=== PATIENT | male | born 1980 | race Caucasian/White ===

== ENCOUNTER 2023-10-21 17:52 | Emergency (ER) | payer BC, SELFPAY ==
[2023-10-21 17:56] VITALS: BP 170/110; PULSE 87; RESP 18; TEMP 36.9; O2SAT 98; BMI 35.0
--- NOTE | 2023-10-21 18:17 | ED.SKABFB1 ---
HPI - Skin/Abscess/Foreign Bdy General Chief complaint: Skin/Abscess/Foreign Body Stated complaint: Facial Abscess Time Seen by Provider: 10/21/23 17:54 Source: patient Mode of arrival: walk-in Limitations: no limitations History of Present Illness HPI narrative: patient is a 42-year-old male presents to the Emergency Room with concerns of swelling to the left side of his face along the jaw line. 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 He denies any dental pain. Patient states for the past three weeks he has had tenderness swelling along the skin at the lower mandibular jawline, swelling, has tried to plug cares and daily at the area himself with minimal return. Patient presents tonight with concerns of increased swelling, he was seen previously for this in the past and started on antibiotics and topicals with full resolution of symptoms. He denies fever. Patient states he is compliant with all of his diabetic medication for which she is type II. He appears in no distress and is taking Motrin for pain. I been getting ingrown hairs in this location. As long as I can remember. Onset (ago): week(s) (3) Pain Consistency: Reports constant Relieving factors: Reports none Exacerbating factors: Reports none Context: Reports none Associated symptoms: Reports denies other symptoms; Denies fever or chills Treatments prior to arrival: Reports none Related Data Home Medications Medication Instructions Recorded Confirmed acetaminophen 325 mg capsule 650 mg PO DAILY 10/21/23 10/21/23 (Tylenol) amlodipine 10 mg tablet 10 mg PO DAILY 10/21/23 10/21/23 ascorbic acid (vitamin C) 500 mg 500 mg PO DAILY 10/21/23 10/21/23 tablet,extended release (C Complex) cholecalciferol (vitamin D3) 125 125 mcg PO DAILY 10/21/23 10/21/23 mcg (5,000 unit) tablet (Vitamin D3) citalopram 20 mg tablet 10 mg PO DAILY 10/21/23 10/21/23 enalapril maleate 2.5 mg tablet 2.5 mg PO Q24H 10/21/23 10/21/23 ibuprofen 400 mg tablet (IBU) 400 mg PO DAILY 10/21/23 10/21/23 metformin 1,000 mg tablet 1,000 mg PO BID 10/21/23 10/21/23 omeprazole 20 mg capsule,delayed 20 mg PO DAILY 10/21/23 10/21/23 release pioglitazone 45 mg tablet 45 mg PO DAILY 10/21/23 10/21/23 simvastatin 20 mg tablet 20 mg PO DAILY 10/21/23 10/21/23 sitagliptin phosphate 100 mg 100 mg PO DAILY 10/21/23 10/21/23 tablet (Januvia) vitamin B complex 1 tab PO DAILY 10/21/23 10/21/23 zinc gluconate 50 mg tablet 50 mg PO DAILY 10/21/23 10/21/23 Previous Rx's Medication Instructions Recorded cephalexin 500 mg capsule 500 mg PO QID 10 days #40 caps 10/21/23 mupirocin 2 % topical ointment 1 applic topical BID #15 grams 10/21/23 sulfamethoxazole 800 1 tab PO BID 7 days #14 tabs 10/21/23 mg-trimethoprim 160 mg tablet (Bactrim DS) Allergies Allergy/AdvReac Type Severity Reaction Status Date / Time No Known Drug Allergies Allergy Verified 10/21/23 17:56 Review of Systems ROS Constitutional Denies: fever or chills Eyes Denies: change in vision Ears, nose, mouth, and throat Denies: throat pain, neck pain or throat swelling Cardiovascular Denies: chest pain, palpitations or edema Respiratory Denies: shortness of breath, cough or wheezing Gastrointestinal Denies: abdominal pain, nausea or vomiting Genitourinary Denies: painful urination Musculoskeletal Denies: back pain, neck pain or extremity pain Integumentary/Breast Reports: skin tenderness (left lower mandibular jawline); Denies: rash or itching Psychiatric Denies: anxiety Hematologic/Lymphatic Denies: easy bruising Allergic/Immunologic Denies: hives PFSH PFSH Social History Smoking status: Current every day smoker Exam Narrative Exam Narrative: Nurses notes and vital signs reviewed and patient is not hypoxic. General: The patient appears well and in no apparent distress. Patient is resting comfortably on cart. Skin: Warm, dry, no pallor noted.suspect carbuncle formation left lower mandibular jawline at the ankle, no active drainage, minimal overlying erythema no streaking. No involvement to the lower lid. Patient has multiple punctate areas concerning for an original folliculitis.area is firm, no significant fluctuance.approximately 4 cm x 3 cm Head: Normocephalic, atraumatic, swelling left lower mandibular jawline Neck: Supple, trachea mid-line, tenderness left anterior cervical chain Eye: Pupils are equal, round and reactive to light, EOMI Ears, Nose, Mouth, and Throat: TM are clear, normal light reflex, oral mucosa is moist, no posterior oropharynx erythema or hypertrophy, uvula is mid-line, no mastoid tenderness, no auricle tenderness, no induration in the floor the mouth, no tenderness to the lower or upper teeth. Cardiovascular: Regular Rate and Rhythm Respiratory: Patient is in no distress, no accessory muscle use, lungs are clear to auscultation, no wheezing, rales or rhonchi. Chest Wall: no tenderness Neurological: A&O x4 Psychiatric: Cooperative Constitutional Vital Signs, click to edit/add: Last Vital Signs Temp 98.4 F 10/21/23 17:56 Pulse 87 10/21/23 17:56 Resp 18 10/21/23 17:56 BP 170/110 H 10/21/23 17:56 Pulse Ox 98 10/21/23 17:56 O2 Del Method Room Air 10/21/23 17:56 Course Vital Signs Vital signs: Vital Signs Temperature 98.4 F 10/21/23 17:56 Pulse Rate 87 10/21/23 17:56 Respiratory Rate 18 10/21/23 17:56 Blood Pressure 170/110 H 10/21/23 17:56 Pulse Oximetry 98 10/21/23 17:56 Oxygen Delivery Method Room Air 10/21/23 17:56 Temperature 98.4 F 10/21/23 17:56 Pulse Rate 87 10/21/23 17:56 Respiratory Rate 18 10/21/23 17:56 Blood Pressure 170/110 H 10/21/23 17:56 Pulse Oximetry 98 10/21/23 17:56 Oxygen Delivery Method Room Air 10/21/23 17:56 MDM - Skin/Abscess/Foreign Bdy MDM Narrative Medical decision making narrative: bedside ultrasound placed, patient has multiple small fluid collections concerning for carbuncle formation on the left jawline, no single area of constellation for formation of abscess. Physical exam without evidence of dental involvement. Patient details long history of recurrent ingrown hairs in this location and carbuncle formation his clinically suspected. We discussed surgical and nonsurgical treatment options including incision and drainage at the bedside which require multiple incisions with likely secondary scarring. Given small size in the loculations recommend warm compress, oral and topical antibiotics. Follow-up to general surgery for potential incision and drainage if symptoms worsen. He may also return to the Emergency Room. Patient agreeable to try medication given his symptom...patient and significant other bedside also report doing oral medication the past with resolution of symptoms. Patient given 1st dose of Keflex and Bactrim here. Topical muprocin The patient is to followup with primary care physician/ general surgeon in next 2-3 days or to return to the emergency department should any of the signs or symptoms worsen or new symptoms develop. Patient had questions answered. The patient agrees with the following Diagnosis and Treatment plan and the patient will be discharged home. Differential Diagnosis Differential diagnosis: Likely abscess of skin or subcutaneous tissue; Unlikely herpes zoster Discharge Plan Discharge Chief Complaint: Skin/Abscess/Foreign Body Clinical Impression: Carbuncle and furuncle of face Patient Disposition: Home, Self-Care Time of Disposition Decision: 18:18 Condition: Good Prescriptions / Home Meds: New sulfamethoxazole-trimethoprim [Bactrim DS] 800-160 mg tablet 1 tab PO BID 7 Days Qty: 14 0RF cephalexin 500 mg capsule 500 mg PO QID 10 Days Qty: 40 0RF mupirocin 2 % ointment 1 applic topical BID Qty: 15 0RF No Action amlodipine 10 mg tablet 10 mg PO DAILY citalopram 20 mg tablet 10 mg PO DAILY enalapril maleate 2.5 mg tablet 2.5 mg PO Q24H metformin 1,000 mg tablet 1,000 mg PO BID pioglitazone 45 mg tablet 45 mg PO DAILY omeprazole 20 mg capsule,delayed release(DR/EC) 20 mg PO DAILY simvastatin 20 mg tablet 20 mg PO DAILY Januvia 100 mg tablet 100 mg PO DAILY ascorbic acid (vitamin C) [C Complex] 500 mg tablet extended release 500 mg PO DAILY cholecalciferol (vitamin D3) [Vitamin D3] 125 mcg (5,000 unit) tablet 125 mcg PO DAILY zinc gluconate 50 mg tablet 50 mg PO DAILY vitamin B complex Tablet 1 tab PO DAILY Patient Comments: 1000 mcg daily acetaminophen [Tylenol] 325 mg capsule 650 mg PO DAILY ibuprofen [IBU] 400 mg tablet 400 mg PO DAILY Instructions: Furunculosis and Carbunculosis (ED) Additional Instructions: Warm compress. Can try hibiclens soap wash gentle on skin ( avoid eyes) after symptoms resolve. Follow up to General surgeon if not improving for evaluation Stand Alone Forms: Portal Instructions Referrals: Dedrick Orourke MD [Physician] - As soon as possible Physician,Non-Staff, MD [Primary Care Provider] - 1 week
[2023-10-21] MEDS: SULFAMETHOXAZOLE/TRIMETHOPRIM 800-160 MG TABLET 1 TAB PO (18:37)
[2023-10-21] MEDS: CEPHALEXIN 500 MG CAPSULE PO (18:37)
== END 2023-10-21 18:55 | disposition home or self-care (01) ==
PROVIDERS: Emergency Provider Emergency Medicine
DX: L02.03 Carbuncle of face (principal); L02.02 Furuncle of face; E11.9 Type 2 diabetes mellitus without complications; Z79.899 Other long term (current) drug therapy; Z79.84 Long term (current) use of oral hypoglycemic drugs; F17.210 Nicotine dependence, cigarettes, uncomplicated
CPT/HCPCS: 99284

== ENCOUNTER 2024-08-24 13:21 | Emergency (ER) | payer BC, SELFPAY ==
[2024-08-24 14:12] VITALS: BP 142/92; PULSE 96; TEMP 36.8; O2SAT 96; BMI 34.3
[2024-08-24 15:01] LABS: Influenza Virus A Antigen Negative; Influenza Virus B Antigen Negative; Internal Control Within Normal Limits; SARS-CoV-2 Ag NEGATIVE (NEGATIVE)
--- NOTE | 2024-08-24 15:12 | ED.URI1 ---
HPI - URI/Sore Throat General Chief Complaint: Upper Respiratory Infection Stated Complaint: COUGH, SORE THROAT, BILATERAL JAW PAIN Time Seen by Provider: 08/24/24 15:07 Source: patient History of Present Illness HPI Narrative: Patient is a 43-year-old male who presents to the emergency department for 2 to 3-week history of illness. 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 He is on diabetic medication. He denies fevers, vomiting or diarrhea. He states he started with a nonproductive cough which has now progressed to a more significant sore throat, nasal congestion and jaw pain. He reports bilateral ear pain as well. No sputum production or hemoptysis. No medications taken prior to arrival. Related Data Home Medications ?Medication ?Instructions ?Recorded ?Confirmed acetaminophen 325 mg capsule 650 mg PO DAILY 10/21/23 10/21/23 (Tylenol) amlodipine 10 mg tablet 10 mg PO DAILY 10/21/23 10/21/23 ascorbic acid (vitamin C) 500 mg 500 mg PO DAILY 10/21/23 10/21/23 tablet,extended release (C Complex) cholecalciferol (vitamin D3) 125 125 mcg PO DAILY 10/21/23 10/21/23 mcg (5,000 unit) tablet (Vitamin D3) citalopram 20 mg tablet 10 mg PO DAILY 10/21/23 10/21/23 enalapril maleate 2.5 mg tablet 2.5 mg PO Q24H 10/21/23 10/21/23 ibuprofen 400 mg tablet (IBU) 400 mg PO DAILY 10/21/23 10/21/23 metformin 1,000 mg tablet 1,000 mg PO BID 10/21/23 10/21/23 omeprazole 20 mg capsule,delayed 20 mg PO DAILY 10/21/23 10/21/23 release pioglitazone 45 mg tablet 45 mg PO DAILY 10/21/23 10/21/23 simvastatin 20 mg tablet 20 mg PO DAILY 10/21/23 10/21/23 sitagliptin phosphate 100 mg 100 mg PO DAILY 10/21/23 10/21/23 tablet (Januvia) vitamin B complex 1 tab PO DAILY 10/21/23 10/21/23 zinc gluconate 50 mg tablet 50 mg PO DAILY 10/21/23 10/21/23 Previous Rx's ?Medication ?Instructions ?Recorded cephalexin 500 mg capsule 500 mg PO QID 10 days #40 caps 10/21/23 mupirocin 2 % topical ointment 1 applic topical BID #15 grams 10/21/23 sulfamethoxazole 800 1 tab PO BID 7 days #14 tabs 10/21/23 mg-trimethoprim 160 mg tablet (Bactrim DS) uvoxxdzolbkeyhd-jihlpbierwsoeic-KA 10 ml PO Q6H PRN cold symptoms 08/24/24 2 mg-30 mg-10 mg/5 mL oral syrup #200 mL (Bromfed DM) cefdinir 300 mg capsule 300 mg PO BID 10 days #20 caps 08/24/24 Allergies Allergy/AdvReac Type Severity Reaction Status Date / Time No Known Drug Allergies Allergy Verified 08/24/24 14:12 Review of Systems ROS Constitutional Denies: fever or chills Ears, nose, mouth, and throat Reports: throat pain, ear pain and nasal congestion Cardiovascular Denies: chest pain Respiratory Reports: cough; Denies: shortness of breath Gastrointestinal Denies: nausea, vomiting or diarrhea Musculoskeletal Denies: back pain Integumentary/Breast Denies: rash Hematologic/Lymphatic Denies: easy bruising or easy bleeding PFSH [facility] Social History Smoking status: Current every day smoker Little interest or pleasure in doing things: not at all Feeling down, depressed, or hopeless: not at all Exam Narrative Exam Narrative: Gen.: Awake, alert, in no distress Head: Normocephalic, atraumatic ENT: Moist mucous membranes, bilateral TMs clear, no pharyngeal erythema with uvula midline. No tonsillar edema or exudate. Clear speech. No trismus or drooling. No hoarse or muffled voice. No redness or swelling under the tongue. Respiratory: No respiratory distress, lungs clear bilaterally Cardio: Regular rate and rhythm Extremities: Moves extremities equally Psych: Normal mood and affect Neuro: No focal neuro deficit Skin: Warm, dry, intact Constitutional Vital Signs, click to edit/add: Last Vital Signs Temp 98.2 F 08/24/24 14:12 Pulse 96 H 08/24/24 14:12 Resp 20 08/24/24 14:12 BP 142/92 H 08/24/24 14:12 Pulse Ox 96 08/24/24 14:12 Course Vital Signs Vital signs: Vital Signs Temperature 98.2 F 08/24/24 14:12 Pulse Rate 96 H 08/24/24 14:12 Respiratory Rate 20 08/24/24 14:12 Blood Pressure 142/92 H 08/24/24 14:12 Pulse Oximetry 96 08/24/24 14:12 Temperature 98.2 F 08/24/24 14:12 Pulse Rate 96 H 08/24/24 14:12 Respiratory Rate 20 08/24/24 14:12 Blood Pressure 142/92 H 08/24/24 14:12 Pulse Oximetry 96 08/24/24 14:12 MDM - URI/Sore Throat MDM Narrative Medical decision making narrative: Patient with stable vital signs, no wheezing. He appears well-hydrated and nontoxic will be treated based on his duration of symptoms with cefdinir, Bromfed-DM. Decadron given in the ER. We will defer additional steroids due to history of diabetes. Follow-up with primary care and return to the ER if symptoms change or worsen SUPERVISED APC VISIT, PHYSICIAN ATTESTATION: Based on the medical record the care appears appropriate. ? Medical Records Attestation: I reviewed the patient's medical records. Lab Data Labs: Lab Results 08/24/24 Range/Units 14:15 Influenza Type A Ag Negative Influenza Type B Ag Negative SARS-CoV-2 Ag (CV2AG) Negative (NEGATIVE) Discharge Plan Discharge Chief Complaint: Upper Respiratory Infection Clinical Impression: Upper respiratory infection Patient Disposition: Home, Self-Care Time of Disposition Decision: 15:13 Condition: Good Prescriptions / Home Meds: New aliwpfrmkcsoxmm-fqcnxwnqi-KC [Bromfed DM] 2-30-10 mg/5 mL syrup 10 ml PO Q6H PRN (Reason: cold symptoms) Qty: 200 0RF cefdinir 300 mg capsule 300 mg PO BID 10 Days Qty: 20 0RF No Action amlodipine 10 mg tablet 10 mg PO DAILY citalopram 20 mg tablet 10 mg PO DAILY enalapril maleate 2.5 mg tablet 2.5 mg PO Q24H metformin 1,000 mg tablet 1,000 mg PO BID pioglitazone 45 mg tablet 45 mg PO DAILY omeprazole 20 mg capsule,delayed release(DR/EC) 20 mg PO DAILY simvastatin 20 mg tablet 20 mg PO DAILY Januvia 100 mg tablet 100 mg PO DAILY ascorbic acid (vitamin C) [C Complex] 500 mg tablet extended release 500 mg PO DAILY cholecalciferol (vitamin D3) [Vitamin D3] 125 mcg (5,000 unit) tablet 125 mcg PO DAILY zinc gluconate 50 mg tablet 50 mg PO DAILY vitamin B complex Tablet 1 tab PO DAILY Patient Comments: 1000 mcg daily acetaminophen [Tylenol] 325 mg capsule 650 mg PO DAILY ibuprofen [IBU] 400 mg tablet 400 mg PO DAILY sulfamethoxazole-trimethoprim [Bactrim DS] 800-160 mg tablet 1 tab PO BID 7 Days Qty: 14 0RF cephalexin 500 mg capsule 500 mg PO QID 10 Days Qty: 40 0RF mupirocin 2 % ointment 1 applic topical BID Qty: 15 0RF Print Language: Italian Instructions: Upper Respiratory Infection (ED) Referrals: Angelina Urbano J2EE APPLICATION DEVELOPER [Primary Care Provider] - 1 week Discharge Date/Time: 08/24/24 15:20
[2024-08-24] MEDS: DEXAMETHASONE SOD PHOS 10 MG/ML VIAL PO (15:18)
== END 2024-08-24 15:20 | disposition home or self-care (01) ==
PROVIDERS: Emergency Provider Emergency Medicine; PCP Nurse Practitioner Family
DX: J06.9 Acute upper respiratory infection, unspecified (principal); E11.9 Type 2 diabetes mellitus without complications; Z79.84 Long term (current) use of oral hypoglycemic drugs; F17.200 Nicotine dependence, unspecified, uncomplicated
CPT/HCPCS: 87502; 87804; 87811; 99284; J1100

== ENCOUNTER 2025-06-30 09:49 | Outpatient (OUT) | payer BC, SELFPAY ==
--- OUTSIDE RECORDS SUMMARY | 2025-06-30 09:54 | XMS_ITS | Encounter Summary ---
Author Organization [facility] Address [address], [address] [place] [address] Care Team Providers Care Electrode Cleaner Name Role Phone Monica Durán MEAT PRESS OPERATOR - CONVERTING TECHNICIAN Primary Care Provide r Reason for Visit * Reason Comments Medication Refill Encounter Details Date Type Department Care Team (Late st Contact Info) Description 05/17/2021 Refill [facility] Part of [address] [place] [id number] Monica Durán, MEAT PRESS OPERATOR - CONVERTING TECHNICIAN [address] [place] [address] [address] [place] [address] Medication Refill Social History Tobacco Use Types Packs/Day Years Used Date Smoking Tobacco: Every Day Cigarettes 2 28 Smokeless Tobacco: Never Overall Financial Resource Strain (CARDIA) Answe r Date Recorded How hard is it for you to pa y for the very basics like food, housing, medical care, and heating? Not hard at all 07/21/2020 PHQ-2 Answer Date Recorded PHQ-9 Total Score 0 02/04/2021 Hunger Vital Sign Answer Date Recorded Within the past 12 months, y ou worried that your food would run out before you got the money to buy more. Never true 07/21/20 20 Within the past 12 months, t he food you bought just didn't last and you didn't have money to get more. Never true 07/21/2020 PRAPARE - Transportation Answer Date Re corded In the past 12 months, has l ack of transportation kept you from medical appointments or from getting medications? No 12/2019 In the past 12 months, has l ack of transportation kept you from meetings, work, or from getting things needed for daily living? No 07/21/2020 Sex and Gender Information Value Date Recorded Sex Assigned at Male 09/01/2022 11:11 PM EST Legal Sex Male 4:19 PM EDT Gender Identity Male 09/01/2022 11:11 PM EST Sexual Orientation Straight 09/01/2022 11 :11 PM EST documented as of this encounter Plan of Treatment Not on file documented as of this encounter Visit Diagnoses Not on filedocumented in this encounter Care Teams Electrode Cleaner Relationship Specialty Start Date End Date Monica Durán, MEAT PRESS OPERATOR - CONVERTING TECHNICIAN [address] [place] [address] [id number] PCP - General Family Nurse Practitioner 09/26/22 documented as of this encounter
--- OUTSIDE RECORDS SUMMARY | 2025-06-30 09:54 | XMS_ITS | Patient Health Record ---
Author Organization [facility] Address [address] [place] [address] Care Team Providers Care Crop Insurance Claims Adjuster Name Role Phone Monica Durán CNP Primary Care Provider Unavail able Franco Wilson Unavailable [phone] Reason For Referral No Information Problems Problem Type SNOMED Code ICD Code Onset Dates Problem Status W/U Status Risk Notes Problem [id number] Trigger finger, left ring finger (M65.342) Active confirmed Plan Of Treatment No Information Insurance Providers Payer Name Payer Address Payer Phone Subscriber Number Group Number Insured Name Patient Relationship to Insured Coverage Start Date Coverage End Date Mayelin ALLAN [address] [place] [phone] [id number] SULTANA JASSO Self - patient is the insured
--- OUTSIDE RECORDS SUMMARY | 2025-06-30 09:54 | XMS_ITS | Clinical Summary ---
Author Organization [facility] Address [address] [facility], [address] [place] [address] Care Team Providers Care Lion Tamer Name Role Phone DuránMonica gregory Sita ELECTRIC SEALING MACHINE OPERATOR - ENERGY SALES CONSULTANT Primary Care Provide r Allergies No known active allergies Medications blood glucose monitor kit and suppliesIndicat ions:Type 2 diabetes mellitus without complication, without long-term current use of insulin (HCC) Dispense sufficient amount for indicated testing frequency plus additional to accommodate PRN testing needs. Dispense all needed supplies to include: monitor, strips, lancing device, lancets, control solutions, alcohol swabs. 1 kit 2 Active amLODIPine (NORVASC) 10 MG tablet Take 1 tablet by mouth daily 90 tablet 1 4 Active enalapril (VASOTEC) 2.5 MG tablet Take 1 tablet by mouth daily 90 tablet 4 Active metFORMIN (GLUCOPHAGE) 1000 MG tablet Take 1 tablet by mouth 2 times daily (with meals) 180 tablet 4 Active omeprazole (PRILOSEC) 20 MG delayed release capsule TAKE 1 CAPSULE BY MOUTH ONE TIME A DAY BEFORE BREAKFAST 90 capsule 4 Active sildenafil (VIAGRA) 100 MG tablet Take 1 tablet by mouth as needed for Erectile Dysfunction 1 hour prior to sexual activity. Do not exceed more than 1 dose in 24 hours. 30 tablet 4 Active simvastatin (ZOCOR) 20 MG tablet Take 1 tablet by mouth daily 90 tablet 1 4 Active vitamin C (ASCORBIC ACID) 500 MG tablet Take 1 tablet by mouth daily 90 tablet 1 4 Active zinc gluconate 50 MG tablet Take 1 tablet by mouth daily 90 tablet 1 4 Active vitamin D (CHOLECALCIFERO L) 50 MCG (1999) TABS tablet Take 1 tablet by mouth daily 90 tablet 1 4 Active citalopram (CELEXA) 20 MG tablet TAKE ONE-HALF (1/2) TABLET BY MOUTH DAILY 15 tablet 4 Active citalopram (CELEXA) 20 MG tablet Take one-half (1/2) tablet by mouth daily 45 tablet 3 4 Active SITagliptin (JANUVIA) 100 MG tablet Take 1 tablet by mouth daily 90 tablet 1 4 Active pioglitazone (ACTOS) 45 MG tablet Take 1 tablet by mouth daily 90 tablet 4 Active Active Problems Problem Noted Date Diagnosed Date Non-cardiac chest pain 01/28/2021 Acute left-sided thoracic back pain 01/28/2021 Type 2 diabetes mellitus wit hout complication, without long-term current use of insulin 08/17/2020 Essential hypertension 08/17/2020 Anxiety 08/17/2020 Depression 08/17/2020 Other hyperlipidemia 08/17/2020 Tobacco use 08/17/2020 Immunizations Immunization Administration Dates Next Due Pneumococcal, PPSV23, PNEUMO VAX 23, (age 2y+), SC/IM, 0.5mL 11/07/2021 Family History Medical History Relation Name Comments Arthritis Father Cancer Father Diabetes Father Heart Disease Father Stroke Father Diabetes Mother High Blood Pressure Mother Relation Name Status Comments Father Mother Social History Tobacco Use Types Packs/Day Years Used Date Smoking Tobacco: Every Day Cigarettes 2 28 Smokeless Tobacco: Never Tobacco Cessation:Ready to Q uit: Not Asked; Counseling Given: Not Answered Alcohol Use Standard Drinks/Week Comments Yes 0 (1 standard drink = 0.6 oz pur e alcohol) occ AUDIT-C Answer Date Recorded Q1: How often do you have a drink containing alcohol? Monthly or less 06/22/2023 Q2: How many drinks containi ng alcohol do you have on a typical day when you are drinking? Patient does not drink Q3: How often do you have si x or more drinks on one occasion? Never 06/22/2023 Overall Financial Resource Strain (CARDIA) Answe r Date Recorded How hard is it for you to pa y for the very basics like food, housing, medical care, and heating? Not hard at all 04/18/2023 PHQ-2 Answer Date Recorded PHQ-9 Total Score 0 06/22/2023 Hunger Vital Sign Answer Date Recorded Within the past 12 months, y ou worried that your food would run out before you got the money to buy more. Never true 04/18/20 23 Within the past 12 months, t he food you bought just didn't last and you didn't have money to get more. Never true 04/18/2023 PRAPARE - Transportation Answer Date Re corded Lack of Transportation (Medical) Not on file 04/18/2023 In the past 12 months, has l ack of transportation kept you from meetings, work, or from getting things needed for daily living? No 04/18/2023 Housing Stability Vital Sign Answer Adithya e Recorded Unable to Pay for Housing in the Last Year Not o n file 04/18/2023 Number of Places Lived in the Last Year Not on f ile 04/18/2023 In the last 12 months, was t here a time when you did not have a steady place to sleep or slept in a prison (including now)? No 04/18/2023 Food Insecurity Answer Date Recorded Within the past 12 months, y ou worried that your food would run out before you got the money to buy more. 1 04/18/2023 Within the past 12 months, t he food you bought just didn't last and you didn't have money to get more. 1 04/18/2023 Interpersonal Safety Domain Source: IP Abuse Scr eening Answer Date Recorded Read-Only, Retired: Physical Abuse Denies 06/22/2023 Read-Only, Retired: Verbal Abuse Denies 06/22/2023 Read-Only, Retired: Emotional abuse Denies 06/22/2023 Read-Only, Retired: Financial Abuse Denies 06/22/2023 Read-Only, Retired: Sexual abuse Denies 06/22/2023 Sex and Gender Information Value Date Recorded Sex Assigned at Male 09/01/2022 11:11 PM EST Legal Sex Male 4:19 PM EDT Gender Identity Male 09/01/2022 11:11 PM EST Sexual Orientation Straight 09/01/2022 11 :11 PM EST Last Filed Vital Signs Vital Sign Reading Time Taken Comments Blood Pressure 136/79 06/22/2023 7:00 AM EDT Pulse 80 06/22/2023 7:00 AM EDT Temperature 36.7 C (98 F) 06/22/2023 5:50 AM EDT Respiratory Rate 14 06/22/2023 7:00 AM EDT Oxygen Saturation 95% 06/22/2023 7:00 AM EDT Inhaled Oxygen Concentration - - Weight 113.4 kg (250 lb) 06/22/2023 5:50 AM EDT Height 185.4 cm (6' 1 ) 06/22/2023 5:50 AM EDT Body Mass Index 32.98 06/22/2023 5:50 AM EDT Plan of Treatment Health Maintenance Due Date Last Done Comments Depression Monitoring 1991 Diabetic retinal exam 1997 DTaP/Tdap/Td vaccine (1 - Tdap) 1998 Hepatitis B vaccine (1 of 3 - 19+ 3-dose series) 1998 Diabetic Alb to Cr ratio (uACR) test 11/07/2022 11/07/2021 Pneumococcal 0-49 years Vaccine (2 of 2 - PCV) 11/07/2022 11/07/2021 A1C test (Diabetic or Prediabetic) 09/01/2023 09/01/2022, 11/07/2021, 05/09/2021, Additional history exists Lipids 09/01/2023 09/01/2022, 0209/2021, 01/28/2021, Additional history exists Diabetic foot exam 09/02/2023 09/02/2022, 0 11/07/2021, 08/17/2020 GFR test (Diabetes, CKD 3-4, OR last GFR 15-59) 06/22/2024 06/22/2023, 09/01/2022, 11/07/2021, Additional history exists Colonoscopy 2024 Colorectal Cancer Screen 2024 FIT/FOBT: Average risk 2024 Fecal-DNA (Cologuard): Average risk 2024 Sigmoidoscopy/CT colonography 2024 Flu vaccine (#1) 04/17/2025 COVID-19 Vaccine ( season) 2025 Diabetes screen Discontinued 09/01/2022, 10/19, 05/09/2021, Additional history exists HIV screen Discontinued HPV vaccine (No Doses Required) Completed Hepatitis A vaccine Aged Out No longe r eligible based on patient's age to complete this topic Hepatitis C screen Discontinued Hib vaccine Aged Out No longer eligi ble based on patient's age to complete this topic Meningococcal (ACWY) vaccine Aged Out No longer eligible based on patient's age to complete this topic Meningococcal B vaccine Aged Out No l onger eligible based on patient's age to complete this topic Polio vaccine Aged Out No longer elig ible based on patient's age to complete this topic Varicella vaccine Discontinued Procedures Procedure Name Priority Date/Time Associated Diagnosis Comments BASIC METABOLIC PANEL STAT 06/22/2023 5:54 AM EDT HEMOGLOBIN A1C Routine 09/01/2022 11:10 AM EST Type 2 diabetes mellitus without complication, without long-term current use of insulin (HCC) LIPID PANEL Routine 09/01/2022 11:09 AM EST Other hyperlipidemia MICROALBUMIN, UR Routine 11/07/2021 5:13 PM EST Type 2 diabetes mellitus without complication, without long-term current use of insulin (HCC) from Last 3 Months or Most Recently Relevant to Health Maintenance Results * (ABNORMAL) BMP (06/22/2023 5:54 AM EDT) Sodium 141 135 - 144 mmol/L 06/22/2023 5:54 AM EDT [facility] Potassium 4.4 3.7 - 5.3 mmol/L 06/22/2023 5:54 AM EDT [facility] Chloride 106 98 - 107 mmol/L 06/22/2023 5:54 AM EDT [facility] CO2 24 20 - 31 mmol/L 06/22/2023 5:54 AM EDT [facility] Anion Gap 11 9 - 17 mmol/L 06/22/2023 5:54 AM EDT [facility] Glucose 146(H) 70 - 99 mg/dL 06/22/2023 5:54 AM EDT [facility] BUN 13 6 - 20 mg/dL 06/22/2023 5:54 AM EDT [facility] Creatinine 0.9 0.7 - 1.2 mg/dL 06/22/2023 5:54 AM EDT [facility] Est, Glom Filt Rate >60 >60 mL/min/1.7 3m2 06/22/2023 5:54 AM EDT [facility] Comment: These results are not intended for use in patients <18 years of age. eGFR results are calculated without a race factor using the 2020 CKD-EPI equation. Careful clinical correlation is recommended, particularly when comparing to results calculated using previous equations. The CKD-EPI equation is less accurate in patients with extremes of muscle mass, extra-renal metabolism of creatine, excessive creatine ingestion, or following therapy that affects renal tubular secretion. BUN/Creatinine Ratio 14 9 - 20 06/22/2023 5:54 AM EDT [facility] Calcium 9.9 8.6 - 10.4 mg/dL 06/22/2023 5:54 AM EDT [facility] Blood BLOOD SPECIMEN / Unknown 06/22/2023 5:54 AM EDT 06/22/2023 5:56 AM EDT us Rommel Williamson MD CHEMISTRY ORDERABLES Final Resul t [facility] [address] [phone] * (ABNORMAL) Hemoglobin A1C (09/01/2022 11:10 AM EST) Hemoglobin A1C 6.7(H) 4.0 - 6.0 % 09/01/2022 11:10 AM EST [facility] Estimated Avg Glucose 146 mg/dL 09/01/2022 11:10 AM EST [facility] Comment: The ADA and AACC recommend providing the estimated average glucose result to permit better patient understanding of their HBA1c result. BLOOD SPECIMEN / Unknown 09/01/2022 11:10 AM EST 09/01/2022 11:11 AM EST Monica Durán ELECTRIC SEALING MACHINE OPERATOR - ENERGY SALES CONSULTANT CHEMISTRY ORDERABLES Final Result [facility] [address] [place] [address], [facility] [phone] [facility] [address] [place] [address], [facility] [phone] * (ABNORMAL) Lipid Panel (09/01/2022 11:09 AM EST) Cholesterol 185 <200 mg/dL 09/01/2022 11:09 AM EST [facility] Comment: Cholesterol Guidelines: <200 Desirable 200-240 Borderline >240 Undesirable HDL 37(L) >40 mg/dL 09/01/2022 11:09 AM EST [facility] Comment: HDL Guidelines: <40 Undesirable 40-59 Borderline >59 Desirable LDL Cholesterol 119 0 - 130 mg/dL 09/01/2022 11:09 AM EST [facility] Comment: LDL Guidelines: <100 Desirable 100-129 Near to/above Desirable 130-159 Borderline >159 Undesirable Direct (measured) LDL and calculated LDL are not interchangeable tests. Chol/HDL Ratio 5.0(H) <5 09/01/2022 11:09 AM EST [facility] Comment: Triglycerides 144 <150 mg/dL 09/01/2022 11:09 AM EST [facility] Comment: Triglyceride Guidelines: <150 Desirable 150-199 Borderline 200-499 High >499 Very high Based on AHA Guidelines for fasting triglyceride, June 2012. BLOOD SPECIMEN / Unknown 09/01/2022 11:09 AM EST 09/01/2022 11:10 AM EST Monica Durán ELECTRIC SEALING MACHINE OPERATOR - ENERGY SALES CONSULTANT CHEMISTRY ORDERABLES Final Result [facility] [address] [place] [address], [facility] [phone] [facility] [address] [place] [id number] [phone] * (ABNORMAL) Microalbumin, Ur (11/07/2021 5:13 PM EST) Albumin Urine 399(H) <21 mg/L 11/07/2021 5:13 PM EST [facility] Creatinine, Ur 114.8 39.0 - 259.0 mg/dL 11/07/2021 5:13 PM EST [facility] Microalb/Weight Engineer. Ratio 348(H) <17 mcg/mg creat 11/07/2021 5:13 PM EST [facility] Urine 11/07/2021 5:13 PM EST 11/07/2021 5:14 PM EST Monica Durán ELECTRIC SEALING MACHINE OPERATOR - ENERGY SALES CONSULTANT URINE ORDERABLES Gena l Result [facility] [address] [place] [address], [facility] [phone] [place] [id number] [phone] from Last 3 Months or Most Recently Relevant to Health Maintenance Care Teams Lion Tamer Relationship Specialty Start Date End Date Monica Durán APRN - JADYN [address] [place] [address] PCP - General Family Nurse Practitioner 09/26/22
--- OUTSIDE RECORDS SUMMARY | 2025-06-30 09:54 | XMS_ITS | Encounter Summary ---
Author Organization [facility] Address [address], [address] [place] [address] Care Team Providers Care Employee Training Specialist Name Role Phone Monica Durán GAMING DEPARTMENT HEAD - IMAGE PROCESSING ENGINEER Primary Care Provide r Reason for Visit * Reason Comments Medication Refill Encounter Details Date Type Department Care Team (Late st Contact Info) Description 04/08/2021 Refill [facility] MEDIC[facility] Part of [address] [place] [phone] Monica Durán, GAMING DEPARTMENT HEAD - IMAGE PROCESSING ENGINEER [address] [place] [address] [address] [place] [address] Medication Refill Social History Tobacco [...] on filedocumented in this encounter Care Teams Employee Training Specialist Relationship Specialty Start Date End Date Monica Durán, GAMING DEPARTMENT HEAD - IMAGE PROCESSING ENGINEER [address] [place] [address] [address] PCP - General Family Nurse Practitioner 09/26/22 documented as of this encounter
--- OUTSIDE RECORDS SUMMARY | 2025-06-30 09:58 | XMS_ITS | CCD ---
Author Organization [facility] Care Team Providers Care Yellow Pages Space Salesperson Name Role Phone Monica Durán Primary Care Provider HOY, NICOLETTE Admitting Unavailable HOY, NICOLETTE Attending Unavailable HOY, NICOLETTE Consulting Unavailable HOY, NICOLETTE Attending Unavailable HOY, NICOLETTE Admitting Unavailable Luis Armando ADJUTANT GENERAL - PARTS SALESMANMonica Primary Care Provide r Luis Armando ADJUTANT GENERAL - PARTS SALESMANMonica Primary Care Provide r MONICA DURÁN Referring Unavailable MONICA DURÁN Primary Care Unavailable MONICA DURÁN Referring Unavailable MONICA DURÁN Primary Care Unavailable TONY VENTURA Attending Unavailable MONICA DURÁN Primary Care Unavailable LEENA, PASQUALE Margarita Primary Care Physician PASQUALE STERN Primary Care Physician Rajat Zeng Attending Unavailable Rajat Zeng Attending Unavailable Rajat Zeng Attending Unavailable LEENA, PASQUALE A Admitting Unavailable LEENA, PASQUALE A Attending Unavailable LEENA, PASQUALE A Attending Unavailable LEENA, PASQUALE A Attending Unavailable LEENA, PASQUALE A Attending Unavailable LEENA, PASQUALE A Attending Unavailable LEENA, PASQUALE A Attending Unavailable LEENA, PASQUALE A Admitting Unavailable LEENA, PASQUALE A Attending Unavailable LEENA, PASQUALE A Attending Unavailable LEENA, PASQUALE A Attending Unavailable LEENA, PASQUALE A Attending Unavailable LEENA, PASQUALE A Attending Unavailable LEENA, PASQUALE A Attending Unavailable LEENA, PASQUALE A Admitting Unavailable LEENA, PASQUALE A Attending Unavailable LEENA, PASQUALE A Attending Unavailable LEENA, PASQUALE A Admitting Unavailable LEENA, PASQUALE A Attending Unavailable LEENA, PASQUALE A Attending Unavailable LEENA, PASQUALE A Admitting Unavailable LEENA, PASQUALE A Attending Unavailable LEENA, PASQUALE A Attending Unavailable LEENA, PASQUALE A Admitting Unavailable LEENA, PASQUALE A Attending Unavailable LEENA, PASQUALE A Admitting Unavailable LEENA, PASQUALE A Attending Unavailable LEENA, PASQUALE A Attending Unavailable LEENA, PASQUALE A Admitting Unavailable LEENA, PASQUALE A Attending Unavailable LEENA, PASQUALE A Attending Unavailable Allergies Allergy Classification Reported Allergen(s) Allergy Type Date of Onset Reaction(s) Facility (5 sources) No Known Medication Allergies; Translations: [No Known Medication Allergies] Propensity to adverse reactions (disorder) [facility] Repository Medications Current Medications Medication Drug Class(es) Dates Sig (Normalized) Sig (Original) amLODIPine 10 mg oral tablet (11 sources) Dihydropyridine Calcium Channel Chema Start: 10-14-2024 take 1 tablet by mouth once daily amLODIPine 10 mg Tab See Instructions, TAKE ONE TABLET BY MOUTH ONCE DAILY, # 90 tab(s), Refills(s) 1, Pharmacy: [facility] 185, cm, 10/14/24 7:46:00 EST, Height/Length Dosing, 121.3, kg, 10/14/24 7:46:00 EST, Weight Dosing Start Date: 10/14/24 Status: Ordered Start: 06-18-2024 take 1 tablet by avani th once daily amLODIPine 10 mg Tab 10 mg = 1 tab(s), Oral, Daily, # 90 tab(s), Refills(s) 1, Pharmacy: [facility] 185, cm, 05/15/24 7:36:00 EDT, Height/Length Dosing, 121.8, kg, 05/15/24 7:36:00 EDT, Weight Dosing Start Date: 06/18/24 Status: Ordered Start: 10-26-2023 take 1 tablet by avani th once daily amLODIPine 10 mg Tab 10 mg = 1 tab(s), Oral, Daily, # 90 tab(s), Refills(s) 0 Start Date: 10/26/23 Status: Ordered Start: 09-01-2022 take 1 tablet by avani th once daily amLODIPine (NORVASC) 10 MG tablet Take 1 tablet by mouth daily 90 tablet 3 09/01/2022 Active Start: 01-28-2021 take 1 tablet by avani th once daily amLODIPine (NORVASC) 10 MG tablet Take 1 tablet by mouth daily 90 tablet 2 01/28/2021 Active Start: 08-17-2020 take 1 tablet by avani th once daily amLODIPine (NORVASC) 5 MG tablet Take 1 tablet by mouth daily 30 tablet 3 08/17/2020 Active amoxicillin 500 mg oral capsule (1 source) Penicillin-class Antibacterial Start: 10-14-2024 take 1 capsule by mouth every twelve hours amoxicillin 500 mg Cap 500 mg = 1 cap(s), Oral, q12hr, # 20 cap(s), Refills(s) 0, Pharmacy: [facility], [facility], 185, cm, 10/14/24 7:46:00 EST, Height/Length Dosing, 121.3, kg, 10/14/24 7:46:00 EST, Weight Dosing Start Date: 10/14/24 Status: Ordered ascorbic acid 500 mg chewable tablet (6 sources) Vitamin C take 1 tablet by mouth once daily vitamin C (ASCORBIC ACID) 500 MG tablet Take 500 mg by mouth daily 0 Active take 1 tablet by mouth once alonzo y vitamin C (ASCORBIC ACID) 500 MG tablet Take 500 mg by mouth daily 0 Active celecoxib 100 mg oral capsule (2 sources) Nonsteroidal Anti-inflammatory Drug Start: 09-13-2020 take 1 capsule by mouth twice daily celecoxib (CELEBREX) 100 MG capsule Take 1 capsule by mouth 2 times daily 30 capsule 1 09/13/2020 Active cephalexin 500 mg oral capsule (4 sources) Cephalosporin Antibacterial Start: 10-26-2023 cephalexin 500 mg Cap Refills(s) 0 Start Date: 10/26/23 Status: Ordered Start: 09-01-2022 End: 09-08-2022 take 1 capsule by mouth four times daily cephALEXin (KEFLEX) 500 MG capsule Take 1 capsule by mouth 4 times daily for 7 days 28 capsule 0 09/01/2022 09/08/2022 Active cholecalciferol 0.125 mg oral tablet (2 sources) Vitamin D Cholecalciferol (VITAMIN D3) 125 MCG (5000 UT) TABS Take by mouth 0 Active citalopram 20 mg oral tablet (12 sources) Serotonin Reuptake Inhibitor Start: 04-30-20 take 10 mg by mouth once daily citalopram 20 mg Tab 10 mg = 0.5 tab(s), Oral, Daily, # 30 tab(s), Refills(s) 0, Pharmacy: [facility] 185, cm, 04/09/24 7:36:00 EDT, Height/Length Dosing, 118.4, kg, 04/09/24 7:36:00 EDT, Weight Dosing Start Date: 04/30/24 Status: Ordered Start: 10-26-2023 take 10 mg by mouth once daily citalopram 20 mg Tab 10 mg = 0.5 tab(s), Oral, Daily, # 45 tab(s), Refills(s) 0 Start Date: 10/26/23 Status: Ordered Start: 09-01-2022 take 0.5 tablet by m outh once daily citalopram (CELEXA) 20 MG tablet TAKE ONE-HALF (1/2) TABLET BY MOUTH DAILY 30 tablet 0 09/02/2022 Active Start: 10-20-2020 take 0.5 tablet by m outh once daily citalopram (CELEXA) 20 MG tablet TAKE 1/2 TABLET BY MOUTH ONE TIME DAILY 45 tablet 1 10/20/2020 Active take 1 tablet by avani th once daily citalopram (CELEXA) 20 MG tablet Take 20 mg by mouth daily 0 Active enalapril maleate 20 mg oral tablet (10 sources) Angiotensin Converting Enzyme Inhibitor Start: 10-14-2024 take 1 tablet by mouth once daily enalapril 20 mg Tab 20 mg = 1 tab(s), Oral, Daily, # 90 tab(s), Refills(s) 1, Pharmacy: [facility] 185, cm, 10/14/24 7:46:00 EST, Height/Length Dosing, 121.3, kg, 10/14/24 7:46:00 EST, Weight Dosing Start Date: 10/14/24 Status: Ordered Start: 07-10-2024 take 1 tablet by avani th once daily enalapril 10 mg Tab 10 mg = 1 tab(s), Oral, Daily, # 30 tab(s), Refills(s) 0, Pharmacy: [facility], 185, cm, 07/10/24 7:24:00 EDT, Height/Length Dosing, 119.9, kg, 07/10/24 7:24:00 EDT, Weight Dosing Start Date: 07/10/24 Status: Ordered Start: 06-18-2024 take 1 tablet by avani th once daily enalapril 20 mg Tab 20 mg = 1 tab(s), Oral, Daily, # 90 tab(s), Refills(s) 1, Pharmacy: [facility], [facility] 185, cm, 05/15/24 7:36:00 EDT, Height/Length Dosing, 121.8, kg, 05/15/24 7:36:00 EDT, Weight Dosing Start Date: 06/18/24 Status: Ordered Start: 02-19-2024 take 1 tablet by avani th once daily enalapril 5 mg Tab 5 mg = 1 tab(s), Oral, Daily, # 30 tab(s), Refills(s) 0, Pharmacy: [facility], 185, cm, 02/19/24 7:35:00 EDT, Height/Length Dosing, 119.7, kg, 02/19/24 7:35:00 EDT, Weight Dosing Start Date: 02/19/24 Status: Ordered Start: 10-26-2023 take 1 tablet by avani th once daily enalapril 2.5 mg Tab 2.5 mg = 1 tab(s), Oral, Daily, # 90 tab(s), Refills(s) 0 Start Date: 10/26/23 Status: Ordered Start: 09-01-2022 take 1 tablet by avani th once daily enalapril (VASOTEC) 2.5 MG tablet Take 1 tablet by mouth daily 90 tablet 3 09/01/2022 Active fluconazole 100 mg oral tablet (1 source) Azole Antifungal Start: 02-19-2024 End: 02-26-2024 take 1 tablet by mouth once daily fluconazole 100 mg Tab 100 mg = 1 tab(s), Oral, Daily, X 7 day(s), # 7 tab(s), Refills(s) 0, Pharmacy: [facility], 185, cm, 02/19/24 7:35:00 EDT, Height/Length Dosing, 119.7, kg, 02/19/24 7:35:00 EDT, Weight Dosing Start Date: 02/19/24 Stop Date: 02/26/24 Status: Ordered glimepiride 4 mg oral tablet (1 source) Sulfonylurea take 1 tablet by mouth once daily before breakfast glimepiride (AMARYL) 4 MG tablet Take 4 mg by mouth every morning (before breakfast) 0 Active glipiZIDE er 10 mg 24 hr extended release oral tablet (2 sources) Sulfonylurea Start: 10-14-2024 take 1 tablet by mouth once daily glipiZIDE 10 mg ER Tab 10 mg = 1 tab(s), Oral, Daily, # 90 tab(s), Refills(s) 1, Pharmacy: [facility] 185, cm, 10/14/24 7:46:00 EST, Height/Length Dosing, 121.3, kg, 10/14/24 7:46:00 EST, Weight Dosing Start Date: 10/14/24 Status: Ordered Start: 06-18-2024 take 1 tablet by avani th once daily glipiZIDE 5 mg ER Tab 5 mg = 1 tab(s), Oral, Daily, # 90 tab(s), Refills(s) 1, Pharmacy: [facility] 185, cm, 05/15/24 7:36:00 EDT, Height/Length Dosing, 121.8, kg, 05/15/24 7:36:00 EDT, Weight Dosing Start Date: 06/18/24 Status: Ordered lamoTRIgine 100 mg oral tablet (3 sources) Mood Stabilizer, Anti-epileptic Agent take 1 tablet by mouth once daily lamoTRIgine (LAMICTAL) 100 MG tablet Take 100 mg by mouth daily 0 Active metFORMIN hydrochloride 1000 mg oral tablet (12 sources) Biguanide Start: 10-14-19 take 1 tablet by mouth twice daily metformin 1000 mg Tab See Instructions, TAKE ONE TABLET BY MOUTH TWICE A DAY, # 180 tab(s), Refills(s) 1, Pharmacy: [facility], 185, cm, 10/14/24 7:46:00 EST, Height/Length Dosing, 121.3, kg, 10/14/24 7:46:00 EST, Weight Dosing Start Date: 10/14/24 Status: Ordered Start: 05-02-2024 take 1 tablet by avani th twice daily metformin 1000 mg Tab 1,000 mg = 1 tab(s), Oral, BID, # 60 tab(s), Refills(s) 0, Pharmacy: [facility], 185, cm, 04/09/24 7:36:00 EDT, Height/Length Dosing, 118.4, kg, 04/09/24 7:36:00 EDT, Weight Dosing Start Date: 05/02/24 Status: Ordered Start: 10-26-2023 take 1 tablet by avani twice daily metformin 1000 mg Tab 1,000 mg = 1 tab(s), Oral, BID, # 180 tab(s), Refills(s) 0 Start Date: 10/26/23 Status: Ordered Start: 09-01-2022 take 1 tablet by avani twice daily at mealtime metFORMIN (GLUCOPHAGE) 1000 MG tablet Take 1 tablet by mouth 2 times daily (with meals) 90 tablet 3 09/01/2022 Active take 1 tablet by avani twice daily at mealtime metFORMIN (GLUCOPHAGE) 1000 MG tablet Take 1,000 mg by mouth 2 times daily (with meals) 0 Active mupirocin 0.02 mg/mg topical ointment (4 sources) RNA Synthetase Inhibitor Antibacterial Start: 10-26-2023 mupirocin Top 2% Oint Refill(s) 0 Start Date: 10/26/23 Status: Ordered 24 hr nicotine 0.875 mg/hr transdermal system (3 sources) Cholinergic Nicotinic Agonist Start: 07-21-2020 End: 09-01-2020 apply 1 dose transdermal route once daily nicotine (NICODERM CQ) 21 MG/24HR Place 1 patch onto the skin daily 42 patch 0 07/21/2020 Active omeprazole 20 mg delayed release oral capsule (9 sources) Proton Pump Inhibitor Start: 09-15-2024 take 1 capsule by mouth once daily omeprazole 20 mg Cap-DR See Instructions, TAKE ONE CAPSULE BY MOUTH EVERY DAY, # 30 cap(s), Refills(s) 0, Pharmacy: [facility] 185, cm, 08/15/24 8:05:00 EST, Height/Length Dosing, 119.1, kg, 08/15/24 8:05:00 EST, Weight Dosing Start Date: 09/15/24 Status: Ordered Start: 04-30-2024 take 1 capsule by [facility] once daily omeprazole 20 mg Cap-DR 20 mg = 1 cap(s), Oral, Daily, # 30 cap(s), Refills(s) 0, Pharmacy: [facility] 185, cm, 04/09/24 7:36:00 EDT, Height/Length Dosing, 118.4, kg, 04/09/24 7:36:00 EDT, Weight Dosing Start Date: 04/30/24 Status: Ordered Start: 10-26-2023 take 1 capsule by [facility] once daily before breakfast omeprazole 20 mg Cap-DR 20 mg = 1 cap(s), Oral, Daily, before breakfast, # 90 cap(s), Refills(s) 0 Start Date: 10/26/23 Status: Ordered Start: 09-01-2022 take 1 capsule by [facility] once daily before breakfast omeprazole (PRILOSEC) 20 MG delayed release capsule TAKE 1 CAPSULE BY MOUTH ONE TIME A DAY BEFORE BREAKFAST 90 capsule 3 09/01/2022 Active Start: 01-28-2021 take 1 capsule by [facility] once daily before breakfast omeprazole (PRILOSEC) 20 MG delayed release capsule Take 1 capsule by mouth every morning (before breakfast) 90 capsule 1 01/28/2021 Active pioglitazone 45 mg oral tablet (12 sources) Peroxisome Proliferator Receptor alpha Agonist, Peroxisome Proliferator Receptor gamma Agonist, Thiazolidinedione Start: 10-14-2024 take 1 tablet by mouth once daily pioglitazone 45 mg Tab 45 mg = 1 tab(s), Oral, Daily, # 90 tab(s), Refills(s) 1, [facility], cm, 10/14/24 7:46:00 EST, Height/Length Dosing, 121.3, kg, 10/14/24 7:46:00 EST, Weight Dosing Start Date: 10/14/24 Status: Ordered Start: 06-24-2024 take 1 tablet by [facility] once daily pioglitazone 45 mg Tab 45 mg = 1 tab(s), Oral, Daily, # 90 tab(s), Refills(s) 0, Pharmacy: [facility], 185, cm, 05/15/24 7:36:00 EDT, Height/Length Dosing, 121.8, kg, 05/15/24 7:36:00 EDT, Weight Dosing Start Date: 06/24/24 Status: Ordered Start: 02-19-2024 take 1 tablet by avani th once daily pioglitazone 45 mg Tab 45 mg = 1 tab(s), Oral, Daily, # 90 tab(s), Refills(s) 1, Pharmacy: [facility], 185, cm, 02/19/24 7:35:00 EDT, Height/Length Dosing, 119.7, kg, 02/19/24 7:35:00 EDT, Weight Dosing Start Date: 02/19/24 Status: Ordered Start: 10-26-2023 take 1 tablet by avani th once daily pioglitazone 45 mg Tab 45 mg = 1 tab(s), Oral, Daily, # 90 tab(s), Refills(s) 0 Start Date: 10/26/23 Status: Ordered Start: 09-01-2022 take 1 tablet by avani th once daily pioglitazone (ACTOS) 45 MG tablet TAKE 1 TABLET BY MOUTH ONE TIME DAILY 90 tablet 3 09/01/2022 Active take 1 tablet by avani th once daily pioglitazone (ACTOS) 30 MG tablet Take 30 mg by mouth daily 0 Active sildenafil 100 mg oral tablet (2 sources) Phosphodiesterase 5 Inhibitor Start: 09-01-2022 take 1 tablet by mouth every hour as needed, then take 1 tablet by mouth every twenty-four hours as needed sildenafil (VIAGRA) 100 MG tablet Take 1 tablet by mouth as needed for Erectile Dysfunction 1 hour prior to sexual activity. Do not exceed more than 1 dose in 24 hours. 30 tablet 1 09/01/2022 Active simvastatin 20 mg oral tablet (12 sources) HMG-CoA Reductase Inhibitor Start: 10-14-2024 take 1 tablet by mouth once daily simvastatin 20 mg Tab See Instructions, TAKE ONE TABLET BY MOUTH EVERY DAY, # 90 tab(s), Refills(s) 1, Pharmacy: [facility] 185, cm, 10/14/24 7:46:00 EST, Height/Length Dosing, 121.3, kg, 10/14/24 7:46:00 EST, Weight Dosing Start Date: 10/14/24 Status: Ordered Start: 06-18-2024 take 1 tablet by avani th once daily simvastatin 20 mg Tab 20 mg = 1 tab(s), Oral, Daily, # 90 tab(s), Refills(s) 1, Pharmacy: [facility], [facility] 185, cm, 05/15/24 7:36:00 EDT, Height/Length Dosing, 121.8, kg, 05/15/24 7:36:00 EDT, Weight Dosing Start Date: 06/18/24 Status: Ordered Start: 10-26-2023 take 1 tablet by avani th once daily simvastatin 20 mg Tab 20 mg = 1 tab(s), Oral, Daily, # 90 tab(s), Refills(s) 0 Start Date: 10/26/23 Status: Ordered Start: 09-01-2022 take 1 tablet by avani th once daily simvastatin (ZOCOR) 20 MG tablet Take 1 tablet by mouth daily 90 tablet 3 09/01/2022 Active Start: 05-19-2020 simvastatin (Z OCOR) 20 MG tablet SITagliptin 100 mg oral tablet (10 sources) Dipeptidyl Peptidase 4 Inhibitor Start: 02-19-2024 take 1 tablet by mouth once daily Januvia 100 mg Tab 100 mg = 1 tab(s), Oral, Daily, # 90 tab(s), Refills(s) 1, Pharmacy: [facility], 185, cm, 02/19/24 7:35:00 EDT, Height/Length Dosing, 119.7, kg, 02/19/24 7:35:00 EDT, Weight Dosing Start Date: 02/19/24 Status: Ordered Start: 10-26-2023 take 1 tablet by avani th once daily Januvia 100 mg Tab 100 mg = 1 tab(s), Oral, Daily, # 90 tab(s), Refills(s) 0 Start Date: 10/26/23 Status: Ordered Start: 09-01-2022 take 1 tablet by avani th once daily SITagliptin (JANUVIA) 100 MG tablet Take 1 tablet by mouth daily 90 tablet 3 09/01/2022 Active Start: 01-14-2021 take 1 tablet by avani th once daily SITagliptin (JANUVIA) 100 MG tablet Take 1 tablet by mouth daily 90 tablet 0 01/14/2021 Active Start: 07-15-2020 JANUVIA 100 MG tablet sulfamethoxazole 400 mg / trimethoprim 80 mg oral tablet (4 sources) Dihydrofolate Reductase Inhibitor Antibacterial, Sulfonamide Antimicrobial Start: 10-26-2023 Bactrim 400 mg-80 mg Tab Refill(s) 0 Start Date: 10/26/23 Status: Ordered zinc gluconate 50 mg oral tablet (2 sources) take 1 tablet by mouth once daily zinc gluconate 50 MG tablet Take 50 mg by mouth daily 0 Active Problems Active Problems Problem Classification Problem Date Documented Da te Episodic/Chronic Anxiety disorders (5 sources) Anxiety; Translations: [Anxiety disorder, unspecified] Onset: 08-17-2020 08-17-2020 Chronic Diabetes mellitus without complication (17 sources) Type 2 diabetes mellitus without complication; Translations: [Type 2 diabetes mellitus without complications] Onset: 05-21-2020 08-17-2020 Chronic Disorders of lipid metabolism (13 sources) Hyperlipidemia; Translations: [Other hyperlipidemia] Onset: 08-17-2020 08-17-2020 Chronic Essential hypertension (14 sources) Essential hypertension; Translations: [Essential (primary) hypertension] Onset: 08-17-2020 08-17-2020 Chronic Mood disorders (11 sources) Depressive disorder; Translations: [Major depressive disorder, single episode, unspecified] Onset: 08-17-2020 08-17-2020 Chronic Other aftercare (1 source) Other long-term (current) drug therapy; 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] Onset: 05-21-2020 Episodic Other male genital disorders (2 sources) Male erectile dysfunction, unspecified; Translations: [Impotence of organic origin] Onset: 09-01-2022 Chronic Other nervous system disorders (1 source) Paige's palsy; 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] Onset: 06-22-2023 Episodic Other nutritional; endocrine; and metabolic disorders (1 source) Obesity; Translations: [Other obesity due to excess calories] Onset: 10-26-2023 Chronic Other nutritional; endocrine; and metabolic disorders (1 source) Obese class II; Translations: [Body mass index (BMI) 35.0-35.9, adult] Onset: 10-26-2023 Chronic Other nutritional; endocrine; and metabolic disorders (8 sources) Body mass index 30+ - obesity 10-26-2023 Chronic Other nutritional; endocrine; and metabolic disorders (5 sources) Obesity caused by energy imbalance 10-26-2023 Chronic Residual codes; unclassified (2 sources) Nicotine-filled electronic cigarette user 05-15-2024 Episodic Screening and history of mental health and substance abuse codes (2 sources) Tobacco use and exposure - finding; Translations: [Tobacco use] Onset: 08-17-2020 08-17-2020 Chronic Skin and subcutaneous tissue infections (9 sources) Abscess of face; Translations: [Cutaneous abscess of face] Onset: 10-26-2023 Episodic Past or Other Problems Problem Classification Problem Date Documented Da te Episodic/Chronic Nonspecific chest pain (4 sources) Right sided chest pain; Translations: [Non-cardiac chest pain] Onset: 01-28-2021 01-28-2021 Episodic Residual codes; unclassified (3 sources) Tobacco use and exposure - finding; Translations: [Tobacco use] Onset: 08-17-2020 08-17-2020 Episodic Spondylosis; intervertebral disc disorders; other back problems (3 sources) Acute thoracic back pain; Translations: [Pain in thoracic spine] Onset: 01-28-2021 01-28-2021 Episodic Results Test Name Value Interpretation Reference Range Facil ity Ambulatory Visit Summaryon 0 05-14-2025 Ambulatory Visit Summary Ambulatory Visit Summary SULTANA JOSHUA :1980 Visit Date:05/14/2025 Ambulatory Visit Instructions Your Diagnosis Diabetes BMI 36.0-36.9,adult Obesity (BMI 30-39.9) Vapes nicotine containing substance, Tobacco use Your Care Team Attending Physician - PASQUALE STERN CNP Primary Care Physician - PASQUALE STERN CNP This Is Your Medications List Misc Prescription (Glucometer) Misc Prescription (Lancets) Misc Prescription (Pen Needle 31G x 6mm) Misc Prescription (Test strips) amlodipine (amLODIPine 10 mg Tab) citalopram (citalopram 20 mg Tab) dulaglutide (Trulicity Pen 0.75 mg/0.5 mL subcutaneous solution) enalapril (enalapril 2.5 mg Tab) enalapril (enalapril 20 mg Tab) glipiZIDE (glipiZIDE 10 mg ER Tab) metformin (metformin 1000 mg Tab) omeprazole (omeprazole 20 mg Cap-DR) pioglitazone (pioglitazone 45 mg Tab) simvastatin (simvastatin 40 mg Tab) Procedures Performed Anterior cruciate ligament of knee joint, Photorefractive keratectomy. Discharge Vitals Temperature (Oral) 36.8 ???C Heart Rate (Peripheral) 94 Respiratory Rate 18 Blood Pressure 142/90 Height 185 cm Height 73 in Weight 124.5 kg Weight 274.475 lb BMI 36.38 What to do next Scheduled Follow-Up Appointments Sunday 7:20 AM EST With: PASQUALE STERN CNP Where: [place] [address]- Medications What How Much When Why Instructions New dulaglutide (Trulicity Pen 0.75 mg/ 0.5 mL subcutaneous solution) 0.75 Milligram Subcutaneous Every week Diabetes BMI 36.0-36.9,adult Obesity (BMI 30-39.9) Vapes nicotine containing substance Tobacco use Refills: 2 Pickup at [facility]/pharmacy #[id number] Unchanged amlodipine (amLODIPine 10 mg Tab) See instructions TAKE ONE TABLET BY MOUTH ONCE DAILY Unchanged citalopram (citalopram 20 mg Tab) 0.5 Tablets By Mouth Every day Unchanged enalapril (enalapril 2.5 mg Tab) Oral, 0 Refill(s) Unchanged enalapril (enalapril 20 mg Tab) 1 Tablets By Mouth Every day HTN (hypertension) Unchanged glipiZIDE (glipiZIDE 10 mg ER Tab) 1 Tablets By Mouth Every day Diabetes Unchanged metformin (metformin 1000 mg Tab) See instructions Diabetes TAKE ONE TABLET BY MOUTH TWICE A DAY Unchanged Misc Prescription (Glucometer) See instructions Diabetes Glucometer to test blood sugar daily & PRN E11.9 Unchanged Misc Prescription (Lancets) See instructions Diabetes Test blood sugar daily & PRN E11.9 Unchanged Misc Prescription (Pen Needle 31G x 6mm) See instructions Diabetes Pen Needle 31G x 6mm Unchanged Misc Prescription (Test strips) See instructions Diabetes Test blood sugar Daily & PRN E11.9 Unchanged omeprazole (omeprazole 20 mg Cap-DR) 1 Capsules By Mouth Every day Unchanged pioglitazone (pioglitazone 45 mg Tab) See instructions TAKE ONE TABLET BY MOUTH EVERY DAY Unchanged simvastatin (simvastatin 40 mg Tab) 1 Tablets By Mouth Once a day (at bedtime) Hyperlipidemia Pharmacy Information [facility]/pharmacy #[id number]: [address], [place] [id number] [phone] Allergies No Known Medication Allergies Problems Ongoing - Any problem that you are currently receiving treatment for. Abscess of left external cheek BMI 36.0-36.9,adult Depression Diabetes HTN (hypertension) Hyperlipidemia Obesity (BMI 30-39.9) Vapes nicotine containing substance Patient Survey You may receive a survey via text or e-mail asking about your office visit. Please share your experience with us by completing your survey. We appreciate your feedback and thank you for choosing us for your care. Patient Portal You may access all of your results and other medical record information on our secure patient portal. If you are not signed up for this yet, please contact [employer] at [phone] to get signed up today. Language Information Language assistance services are available as needed. [facility] Family Medicine Office/Clini c Noteon 05-14-2025 Family Medicine Office/Clinic Note Family Medicine Office/Clinic Note Chief Complaint Discuss diabetes The patient presents with concerns regarding the affordability and coverage of diabetes medication. HPI Staff Pt presents today to discuss diabetes. *Continues glipizide 10 mg, MetFormin 100 mg, and pioglitazone 45 mg Hgb A1C %: 7.9 % High (04/07/25 09:24:00) Pt called our office 05/08/25 stating his finger BS's were still elevated. (220-320) No longer taking Trulicty due to cost. Pt states he was taking glipizide 10mg & 5mg (one in the AM one in PM). Has been quite a while since he has taken meds like that. Increased urinary frequency, going every hr, since stopping Trulicity. History of Present Illness 44-year-old male presenting with concerns regarding diabetes management. He has been on Trulicity, which was initially affordable at $25, but the cost has increased to $1000, making it unaffordable. The patient is currently on glipizide 10 mg extended release once daily and metformin 1000 mg twice daily & pioglitazone 45 mg one tablet daily. He reports that his blood glucose levels were well-controlled with Trulicity, with his A1c previously at 7%. He has been exploring alternative injectable medications that his insurance might cover, such as Victoza, but has encountered coverage issues. He states his blood sugar has been running between 220-350 since he stopped taking the Trulicity. The patient has a history of obesity, with a BMI in the range of 36.0-36.9. He follows a diet consisting of protein shakes, eggs, cheese, and meat, and consumes beverages like Gatorade 0 and Baja Blast 0. The patient also reports tobacco use, specifically vaping nicotine-containing substances. Review of Systems PHQ Score Initial Depression Screen Score: 0 SCORE - Endocrine: Reports well-controlled blood glucose levels with Trulicity, A1c previously at 7%. - Respiratory: Denies wheezing or shortness of breath. Physical Exam Vitals & Measurements T: 36.8 ???C(Oral) HR: 94(Peripheral) RR: 18 BP: 142/90 SpO2: 96% HT: 185 cm HT: 73 in WT: 124.5 kg WT: 274.475 lb BMI: 36.38 General: alert, no acute distress ENMT: TM's clear, oral mucosa moist, no pharyngeal erythema or exudate Cardiovascular: regular rate and rhythm, normal peripheral perfusion Respiratory: Lungs CTA, respirations non labored Extremities: no deformity, no trauma Neurological: oriented x 4, LOC appropriate for age speech normal Assessment/Plan 1. Diabetes (E11.9: Type 2 diabetes mellitus without complications) - Continue current medications: glipizide 10 mg extended release once daily, actos 45 mg daily, and metformin 1000 mg twice daily. - Discussed cost concerns with Trulicity and potential insurance coverage for alternatives. - Encourage low carb diet and daily exercise - Explore alternative injectable medications covered by insurance, such as Victoza, if possible. - Monitor blood glucose levels regularly, aiming for an A1c of 7%. - Plan to recheck A1c levels to assess current diabetes control at next visit f/u in 2 months Ordered: dulaglutide, 0.75 mg, SubCutaneous, qWeek, # 2 mL, Refills(s) 2, Pharmacy: [facility]/pharmacy #[id number], 185, cm, 05/14/25 8:43:00 EDT, Height/Length Dosing, 124.5, kg, 05/14/25 8:43:00 EDT, Weight Dosing 2. BMI 36.0-36.9,adult (Z68.36: Body mass index [BMI] 36.0-36.9, adult) BMI 36.38 Ordered: dulaglutide, 0.75 mg, SubCutaneous, qWeek, # 2 mL, Refills(s) 2, [id number], 185, cm, 05/14/25 8:43:00 EDT, Height/Length Dosing, 124.5, kg, 05/14/25 8:43:00 EDT, Weight Dosing 3. Obesity (BMI 30-39.9) (E66.9: Obesity, unspecified) - Continue dietary management with a focus on protein-rich foods and low-calorie beverages. Ordered: dulaglutide, 0.75 mg, SubCutaneous, qWeek, # 2 mL, Refills(s) 2, [id number], 185, cm, 05/14/25 8:43:00 EDT, Height/Length Dosing, 124.5, kg, 05/14/25 8:43:00 EDT, Weight Dosing 4. Vapes nicotine containing substance, (Z72.0: Tobacco use)Tobacco use - Discuss potential cessation strategies for vaping nicotine-containing substances. Ordered: dulaglutide, 0.75 mg, SubCutaneous, qWeek, # 2 mL, Refills(s) 2, [id number], 185, cm, 05/14/25 8:43:00 EDT, Height/Length Dosing, 124.5, kg, 05/14/25 8:43:00 EDT, Weight Dosing Follow-up No qualifying data available Problem List/Past Medical History Ongoing Abscess of left external cheek BMI 36.0-36.9,adult Depression Diabetes HTN (hypertension) Hyperlipidemia Obesity (BMI 30-39.9) Vapes nicotine containing substance Historical No qualifying data Procedure/Surgical History Anterior cruciate ligament of knee joint, Photorefractive keratectomy. Medications amLODIPine 10 mg Tab, See Instructions citalopram 20 mg Tab, 10 mg= 0.5 tab(s), Oral, Daily enalapril 2.5 mg Tab enalapril 20 mg Tab, 20 mg= 1 tab(s), Oral, Daily, 1 refills glipiZIDE 10 mg ER Tab, 10 mg= 1 tab(s), Oral, Daily, 1 refills Glucometer, See Instru (more content not included)... Normal [facility] Comment on above: Result Comment: Elec tronically Signed By: PASQUALE STERN CNP\.br\Date and Time Signed: 05/14/25 09:19 EDT Ambulatory Visit Summaryon 0 04-07-2025 Ambulatory Visit Summary Ambulatory Visit Summary SULTANA JOSHUA :1980 Visit Date:04/07/2025 Ambulatory Visit Instructions Your Diagnosis Diabetes HTN (hypertension) Hyperlipidemia Depression, unspecified BMI 35.0-35.9,adult Former smoker Morbid (severe) obesity due to excess calories Your Care Team Attending Physician - PASQUALE STERN CNP Primary Care Physician - PASQUALE STERN CNP This Is Your Medications List enalapril (enalapril 20 mg Tab) omeprazole (omeprazole 20 mg Cap-DR) simvastatin (simvastatin 20 mg Tab) Contact prescribing physician if questions or concerns Misc Prescription (Glucometer) Misc Prescription (Lancets) Misc Prescription (Pen Needle 31G x 6mm) Misc Prescription (Test strips) amlodipine (amLODIPine 10 mg Tab) citalopram (citalopram 20 mg Tab) enalapril (enalapril 2.5 mg Tab) glipiZIDE (glipiZIDE 10 mg ER Tab) metformin (metformin 1000 mg Tab) pioglitazone (pioglitazone 45 mg Tab) [Image Removed: STOP]Stop taking these medications dulaglutide (Trulicity Pen 0.75 mg/0.5 mL subcutaneous solution) Procedures Performed Anterior cruciate ligament of knee joint, Photorefractive keratectomy. Discharge Vitals Temperature (Temporal Artery) 36.3 ???C Heart Rate (Peripheral) 80 Respiratory Rate 18 Blood Pressure 130/84 Height 185.0 cm Height 73 in Weight 122.4 kg Weight 269.845 lb BMI 35.76 What to do next You Need to Schedule the Following Appointments Follow Up with PASQUALE STERN CNP, FAM When: Within 6 months Comments: Diabetes & HTN Where: [address] [place] [phone] Business (1) You Need to Complete the Following Comprehensive Metabolic Panel, Blood, Routine collect, 04/07/25, Order for future visit, Lab Collect, Diabetes HTN (hypertension), Print Label By Order Location HgbA1c, Blood, Routine collect, 04/07/25, Order for future visit, Lab Collect, Diabetes, Print Label By Order Location Lipid Panel, Blood, Routine collect, 04/07/25, Order for future visit, Lab Collect, Hyperlipidemia HTN (hypertension), Print Label By Order Location Medications What How Much When Why Instructions Changed omeprazole (omeprazole 20 mg Cap-DR) 1 Capsules By Mouth Every day Pickup at [facility] Changed simvastatin (simvastatin 20 mg Tab) 1 Tablets By Mouth Once a day (at bedtime) Pickup at [facility] Unchanged enalapril (enalapril 20 mg Tab) 1 Tablets By Mouth Every day HTN (hypertension) Pickup at [facility] Unchanged amlodipine (amLODIPine 10 mg Tab) See instructions TAKE ONE TABLET BY MOUTH ONCE DAILY Contact prescribing physician if questions or concerns Unchanged citalopram (citalopram 20 mg Tab) 0.5 Tablets By Mouth Every day Contact prescribing physician if questions or concerns Unchanged enalapril (enalapril 2.5 mg Tab) Oral, 0 Refill(s) Contact prescribing physician if questions or concerns Unchanged glipiZIDE (glipiZIDE 10 mg ER Tab) 1 Tablets By Mouth Every day Diabetes Contact prescribing physician if questions or concerns Unchanged metformin (metformin 1000 mg Tab) See instructions Diabetes TAKE ONE TABLET BY MOUTH TWICE A DAY Contact prescribing physician if questions or concerns Unchanged Misc Prescription (Glucometer) See instructions Diabetes Glucometer to test blood sugar daily & PRN E11.9 Contact prescribing physician if questions or concerns Unchanged Misc Prescription (Lancets) See instructions Diabetes Test blood sugar daily & PRN E11.9 Contact prescribing physician if questions or concerns Unchanged Misc Prescription (Pen Needle 31G x 6mm) See instructions Diabetes Pen Needle 31G x 6mm Contact prescribing physician if questions or concerns Unchanged Misc Prescription (Test strips) See instructions Diabetes Test blood sugar Daily & PRN E11.9 Contact prescribing physician if questions or concerns Unchanged pioglitazone (pioglitazone 45 mg Tab) See instructions TAKE ONE TABLET BY MOUTH EVERY DAY Contact prescribing physician if questions or concerns Pharmacy Information [facility]: [address] [place], [place] [id number] [phone] What How Much When Why Comments Stop Taking dulaglutide (Trulicity Pen 0.75 mg/ 0.5 mL subcutaneous solution) 0.75 Milligram Subcutaneous Every week Diabetes Allergies No Known Medication Allergies Problems Ongoing - Any problem that you are currently receiving treatment for. Abscess of left external cheek BMI 35.0-35.9,adult Depression Diabetes HTN (hypertension) Hyperlipidemia Vapes nicotine containing substance Patient Survey You may receive a survey via text or e-mail asking about your office visit. Please share your experience with us by completing your survey. We appreciate your feedback and thank you for choosing us for your care. Education Materials Blood Glucose Monitoring, Adult To manage your diabetes, you shabnam (more content not included)... Normal [facility] CBC w/ Auto Diffon 5 Basophil Absolute 0.0 E9/L Normal 0.0-0.2 [facility] Comment on above: Performed By: #### 2 [id number] #### [facility] [address] [place] [address] Basophils/100 WBC (Bld) 0.7 % Normal 0.0-2.0 [facility] Comment on above: Performed By: #### 2 [id number] #### [facility] [address] [place] [address] Eos Absolute 0.2 E9/L Normal 0.0-0.5 [facility] Comment on above: Performed By: #### 2 [id number] #### [facility] [address] [place] [address] Eosinophils/100 WBC (Bld) 4.1 % Normal 0.0-8.0 [facility] Comment on above: Performed By: #### 2 [id number] #### [facility] [address] [place] [address] Erythrocyte distribution width (RBC) [Ratio] 13.6 % Normal 10.9-14.2 [facility] Comment on above: Performed By: #### 2 [id number] #### [facility] [address] [place] [address] Hematocrit (Bld) [Volume fraction] 47.8 % Normal 37.7-49.0 [facility] Comment on above: Performed By: #### 2 [id number] #### [facility] [address] [place] [address] Hemoglobin (Bld) [Mass/Vol] 16.6 g/dL Normal 13.5-17.5 [facility] Comment on above: Performed By: #### 2 [id number] #### [facility] [address] [place] [address] Lymph Absolute 1.8 E9/L Normal 1.0-4.0 [facility] Comment on above: Performed By: #### 2 [id number] #### [facility] [address] [place] [address] Lymphocytes/100 WBC (Bld) 40.6 % Normal 14.0-50.0 [facility] Comment on above: Performed By: #### 2 [id number] #### [facility] [address] [place] [address] MCH (RBC) [Entitic mass] 33.3 pg Normal 27.0-34.0 [facility] Comment on above: Performed By: #### 2 [id number] #### [facility] [address] [place] [address] MCHC (RBC) [Mass/Vol] 34.7 g/dL Normal 31.4-36.0 [facility] Comment on above: Performed By: #### 2 [id number] #### [facility] [address] [place] [address] MCV (RBC) [Entitic vol] 96.2 fL Normal 80.0-100.0 [facility] Comment on above: Performed By: #### 2 [id number] #### [facility] [address] [place] [address] [place] Absolute 0.4 E9/L Normal 0.2-1.0 [facility] Comment on above: Performed By: #### 2 [id number] #### [facility] [address] [place] [address] Monocytes/100 WBC (Bld) 9.1 % Normal 4.0-14.0 [facility] Comment on above: Performed By: #### 2 [id number] #### [facility] [address] [place] [address] Neutro Absolute 2.0 E9/L Normal 2.0-7.5 [facility] Comment on above: Performed By: #### 2 [id number] #### [facility] [address] [place] [address] Neutro Auto 45.5 % Normal 36.0-75.0 [facility] Comment on above: Performed By: #### 2 [id number] #### [facility] [address] [place] [address] Platelet 176.0 E9/L Normal 150.0-500.0 [facility] Comment on above: Performed By: #### 2 [id number] #### [facility] [address] [place] [address] Platelet mean volume (Bld) [Entitic vol] 8.8 fL Normal 6.4-10.8 [facility] Comment on above: Performed By: #### 2 [id number] #### [facility] [address] [place] [address] RBC 5.0 E12/L Normal 4.3-5.9 [facility] Comment on above: Performed By: #### 2 [id number] #### [facility] [address] [place] [address] WBC 4.5 E9/L Normal 4.0-11.0 [facility] Comment on above: Performed By: #### 2 [id number] #### [facility] [address] [place] [address] CMPon 04-07-2025 Albumin [Mass/Vol] 4.8 g/dL Normal 3.3-5.0 [facility] Comment on above: Performed By: #### 2 [id number] #### [facility] [address] [place] [address] Albumin/Globulin [Mass ratio] 1.7 {ratio} Normal 1.1-2.2 [facility] Comment on above: Performed By: #### 2 [id number] #### [facility] [address] [place] [address] Alk Phos 52 Int._Unit/L Normal 21-98 [facility] Comment on above: Performed By: #### 2 [id number] #### [facility] [address] [place] [address] ALT 62 Int._Unit/L High 6-46 [facility] Comment on above: Performed By: #### 2 [id number] #### [facility] [address] [place] [address] Anion gap [Moles/Vol] 14 mmol/L Normal 6-16 [facility] Comment on above: Performed By: #### 2 [id number] #### [facility] [address] [place] [address] AST 28 Int._Unit/L Normal 5-43 [facility] Comment on above: Performed By: #### 2 [id number] #### [facility] [address] [place] [address] Bili Total 0.7 mg/dL Normal 0.0-1.1 [facility] Comment on above: Performed By: #### 2 [id number] #### [facility] [address] [place] [address] BUN/Creat Ratio 20 No Units Normal 10-20 [facility] Comment on above: Performed By: #### 2 [id number] #### [facility] [address] [place] [address] Calcium [Mass/Vol] 10.2 mg/dL Normal 8.9-11.1 [facility] Comment on above: Performed By: #### 2 [id number] #### [facility] [address] [place] [address] Chloride [Moles/Vol] 100 mmol/L Low 101-111 [facility] Comment on above: Performed By: #### 2 [id number] #### [facility] [address] [place] [address] CO2 [Moles/Vol] 25 mmol/L Normal 21-31 [facility] Comment on above: Performed By: #### 2 [id number] #### [facility] [address] [place] [address] Creatinine [Mass/Vol] 1.2 mg/dL Normal 0.5-1.3 [facility] Comment on above: Performed By: #### 2 [id number] #### [facility] [address] [place] [address] Globulin (S) [Mass/Vol] 2.9 g/dL Normal 1.4-4.0 [facility] Comment on above: Performed By: #### 2 [id number] #### [facility] [address] [place] [address] Glucose [Mass/Vol] 279 mg/dL High 55-199 [facility] Comment on above: Performed By: #### 2 [id number] #### [facility] [address] [place] [address] Potassium [Moles/Vol] 4.7 mmol/L Normal 3.5-5.3 [facility] Comment on above: Performed By: #### 2 [id number] #### [facility] [address] [place] [address] Protein [Mass/Vol] 7.7 g/dL Normal 6.0-7.8 [facility] Comment on above: Performed By: #### 2 [id number] #### [facility] [address] [place] [address] Sodium [Moles/Vol] 134 mmol/L Low 135-145 [facility] Comment on above: Performed By: #### 2 [id number] #### [facility] [address] [place] [address] Urea nitrogen [Mass/Vol] 24 mg/dL High 5-21 [facility] Comment on above: Performed By: #### 2 [id number] #### [facility] [address] [place] [address] Family Medicine Office/Clini c Noteon 07-22-2025 Family Medicine Office/Clinic Note Family Medicine Office/Clinic Note Chief Complaint The patient is concerned about diabetes management and medication costs. HPI Staff Pt presents today for 3m follow up. Patient is here for follow up on Diabetes. How often are you checking your blood sugars? CAN NOT FIND HIS METER What are your average readings? _ Paresthesias, Ulcerations or sores? no Lisinopril, aspirin, statin therapy? Yes Foot Exam: Eye Exam: NO Last A1c: Hgb A1C %: 10.2 % High (10/14/24 08:12:00) Patient is here for follow up on hypertension. How often are you checking your blood pressure? NO What are your average readings? _ Yearly BMP: _ BUN: 14 mg/dL (10/14/24 08:12:00) Calcium Lvl: 10 mg/dL (10/14/24 08:12:00) Chloride: 102 mmol/L (10/14/24 08:12:00) CO2: 27 mmol/L (10/14/24 08:12:00) Creatinine: 1 mg/dL (10/14/24 08:12:00) eGFR: 95 mL/min/1.73 m2 (10/14/24 08:12:00) Glucose Lvl: 273 mg/dL High (10/14/24 08:12:00) Potassium Lvl: 5.1 mmol/L (10/14/24 08:12:00) Sodium Lvl: 136 mmol/L (10/14/24 08:12:00) Chol: 188 mg/dL (10/14/24 08:12:00) HDL: 39 mg/dL (10/14/24 08:12:00) LDL Direct: 124 mg/dL (10/14/24 08:12:00) Tri mg/dL High (10/14/24 08:12:00) VLDL: 45 mg/dL High (10/14/24 08:12:00) TRULICITY , HE HAS NOT TAKEN FR 2 WEEKS BECAUSE IT IS GOING TO COST HIM 1500 DOLLARS REFILLS NEEDED FOR , ENALAPIN 20 MG OMEPRAZOLE 20 MG History of Present Illness 44-year-old male presenting with a follow-up on diabetes management and overall health maintenance. The patient has a history of type 2 diabetes mellitus without complications, with a previous A1c of 10.2%. He has been monitoring his blood glucose levels at home, which have been consistently under 120 mg/dL, suggesting an improvement. The patient has not used Trulicity for two weeks due to cost concerns, and is unsure about insurance coverage for alternative medications. The patient has essential hypertension, with a recent blood pressure reading of 134/86 mmHg. He is currently on medications including amlodipine and enalapril for blood pressure management. He denies dizziness, headache, vision changes, chest pain, or heart palpitations. The patient has hyperlipidemia and is taking atorvastatin, with plans to check cholesterol levels during this visit. The patient reports a history of depression, currently managed with citalopram.He states he would like to stop some of his medications and a plan to wean off this medication is one step towards this. He reports he does not feel depression and he is working on his health since moving out of his house and he is living with his mother. Review of Systems PHQ Score Initial Depression Screen Score: 0 SCORE - Endocrine: Reports blood glucose levels under 120 mg/dL when checked at home. - Cardiovascular: Denies chest pain or palpitations. - Psychiatric: Reports stable mood with current medication. Physical Exam Vitals & Measurements T: 36.3 ???C(Temporal Artery) HR: 80(Peripheral) RR: 18 BP: 130/84 SpO2: 98% HT: 185.0 cm HT: 73 in WT: 122.4 kg WT: 269.845 lb BMI: 35.76 General: alert, no acute distress Cardiovascular: regular rate and rhythm, normal peripheral perfusion Respiratory: Lungs CTA, respirations non labored Extremities: no deformity, no trauma Neurological: oriented x 4, LOC appropriate for age speech normal Assessment/Plan 1. Diabetes (E11.9: Type 2 diabetes mellitus without complications) - Plan to recheck A1c levels to assess current diabetes control. - Discussed cost concerns with Trulicity and potential insurance coverage for alternatives. - Reviewed patient blood sugar log - Encourage low carb diet and daily exercise - Continue glipizide 10 mf, MetFormin 100 mg, and pioglitazone 45 mg- no refills today - F/U in 3-6 months pending laboratory results Ordered: CBC w/ Auto Diff Comprehensive Metabolic Panel HgbA1c Lab Specimen Collect [id number] Urine Microalbumin/Creatin ine Ratio 2. HTN (hypertension) (I10: Essential (primary) hypertension) - Continue current antihypertensive medications: amlodipine and enalapril. Ordered: enalapril, 20 mg = 1 tab(s), Oral, Daily, # 90 tab(s), Refills(s) 1, Pharmacy: [id number], 185, cm, 04/07/25 8:47:00 EDT, Height/Length Dosing, 122.4, kg, 04/07/25 8:47:00 EDT, Weight Dosing CBC w/ Auto Diff Comprehensive Metabolic Panel Lipid Panel 3. Hyperlipidemia (E78.5: Hyperlipidemia, unspecified) - Plan to check cholesterol levels during this visit. Ordered: Lab Specimen Collect [id number] Lipid Panel 4. Depression, unspecified (F32.A) - Completed and reviewed the PHQ-9 score of 2 today in the office - Discussed plan to wean off the Cymbalta- take one tablet every other day x 3 days, then one tablet every 3 days x one week then discontinue - f/u if symptoms return 5. BMI 35.0-35.9,adult (Z68.35: Body mass index [BMI] 35.0-35.9, adult) BMI 35.76 6. Former smoker (Z87.891: Personal history of nicotine dependence) Encourag (more content not included)... Normal [facility] Comment on above: Result Comment: Elec tronically Signed By: PASQUALE STERN CNP\pablo\Date and Time Signed: 04/07/25 09:30 EDT [id number] 04-07-2025 HbA1c (Bld) [Mass fraction] 7.9 % High <=5.9 [facility] Comment on above: Performed By: #### 7 [id number] #### [facility] [address] [place] [address] Lipid Panelon 04-07-2025 Cholesterol [Mass/Vol] 196 mg/dL Normal 120-200 [facility] Comment on above: Performed By: #### 2 [id number] #### [facility] [address] [place] [address] Cholesterol in HDL [Mass/Vol] 36 mg/dL Invalid Interpretation Code [facility] Comment on above: Result Comment: '>= 60 LOW RISK' '<= 40 HIGH RISK' Performed By: #### 2 [id number] #### [facility] [address] [place] [address] Cholesterol in LDL [Mass/Vol] 104 mg/dL Normal <=129 [facility] Comment on above: Performed By: #### 2 [id number] #### [facility] [address] [place] [address] Cholesterol in VLDL [Mass/Vol] 74 mg/dL High 7-40 [facility] Comment on above: Performed By: #### 2 [id number] #### [facility] [address] [place] [address] Triglyceride [Mass/Vol] 370 mg/dL High <=149 [facility] Comment on above: Performed By: #### 2 [id number] #### [facility] [address] [place] [address] PSA Screen, Totalon 04-07-20 25 PSA Scrn Tot. 0.3 ng/mL Normal 0.1-3.5 [facility] Comment on above: Result Comment: The concentration of PSA determined by different manufacturers can vary due to differences in assay methods and reagent specificity. Values obtained from different assay methods cannot be used interchangeably. The methodology used for this result was chemiluminescence using [employer]'s Access [employer] PSA reagent. Performed By: #### 1 [id number] #### [facility] [address] [place] [address] U MA/Cr Ratioon 04-07-2025 Microalb/Cr Ratio 913.3 mg/gm Cr High .0-30.0 [facility] Comment on above: Result Comment: 30-3 00 mg/g Cr indicates an increased risk for diabetic nephropathy. >300 mg/g Cr is consistent with clinical nephropathy. Performed By: #### 1 [id number] #### [facility] [address] [place] [address] U Creatinine 72.7 mg/dL Invalid Interpretation Code [facility] Comment on above: Performed By: #### 1 [id number] #### [facility] [address] [place] [address] U Microalb 66.4 mg/dL High 0.0-1.9 [facility] Comment on above: Result Comment: Resu lt Verified by Dilution Performed By: #### 1 [id number] #### [facility] [address] [place] [address] eGFRon 04-07-2025 eGFR 76 mL/min/1.73 m2 Normal >=59 [facility] Comment on above: Performed By: #### 1 [id number] #### [facility] [address] [place] [address] Ambulatory Visit Summaryon 0 10-14-2024 Ambulatory Visit Summary Ambulatory Visit Summary LOUISAELISAYESENIA Buckner :1980 Visit Date:10/14/2024 Ambulatory Visit Instructions Your Diagnosis Diabetes HTN (hypertension) Hyperlipidemia BMI 35.0-35.9,adult Obesity (BMI 30-39.9) Vapes nicotine containing substance Your Care Team Attending Physician - PASQUALE STERN CNP Primary Care Physician - PASQUALE STERN CNP This Is Your Medications List amlodipine (amLODIPine 10 mg Tab) enalapril (enalapril 20 mg Tab) glipiZIDE (glipiZIDE 10 mg ER Tab) metformin (metformin 1000 mg Tab) pioglitazone (pioglitazone 45 mg Tab) simvastatin (simvastatin 20 mg Tab) Contact prescribing physician if questions or concerns citalopram (citalopram 20 mg Tab) omeprazole (omeprazole 20 mg Cap-DR) Procedures Performed Anterior cruciate ligament of knee joint, Photorefractive keratectomy. Discharge Vitals Temperature (Oral) 36.9 ???C Respiratory Rate 18 Blood Pressure 134/86 Height 185 cm Height 73 in Weight 121.3 kg Weight 267.42 lb BMI 35.44 What to do next Scheduled Follow-Up Appointments Sunday 7:20 AM EDT With: PASQUALE STERN CNP Where: [place] [phone]- Medications What How Much When Why Instructions Changed enalapril (enalapril 20 mg Tab) 1 Tablets By Mouth Every day HTN (hypertension) Pickup at [facility]. Changed glipiZIDE (glipiZIDE 10 mg ER Tab) 1 Tablets By Mouth Every day [facility] Unchanged amlodipine (amLODIPine 10 mg Tab) See instructions HTN (hypertension) TAKE ONE TABLET BY MOUTH ONCE DAILY Pickup at [facility]. Unchanged metformin (metformin 1000 mg Tab) See instructions Diabetes TAKE ONE TABLET BY MOUTH TWICE A DAY [facility] Unchanged pioglitazone (pioglitazone 45 mg Tab) 1 Tablets By Mouth Every day [facility]. Unchanged simvastatin (simvastatin 20 mg Tab) See instructions Hyperlipidemia TAKE ONE TABLET BY MOUTH EVERY DAY [facility] Unchanged citalopram (citalopram 20 mg Tab) 0.5 Tablets By Mouth Every day Contact prescribing physician if questions or concerns Unchanged omeprazole (omeprazole 20 mg Cap-DR) See instructions TAKE ONE CAPSULE BY MOUTH EVERY DAY Contact prescribing physician if questions or concerns [facility] [address] [place], [place] [id number] [phone] Allergies No Known Medication Allergies Problems Ongoing - Any problem that you are currently receiving treatment for. Abscess of left external cheek BMI 34.0-34.9,adult BMI 35.0-35.9,adult Depression Diabetes HTN (hypertension) Hyperlipidemia Obesity (BMI 30-39.9) Vapes nicotine containing substance Patient Survey You may receive a survey via text or e-mail asking about your office visit. Please share your experience with us by completing your survey. We appreciate your feedback and thank you for choosing us for your care. Normal [facility] CHEMISTRYOrdered By: SYSTEM SYSTEM on 10-14-2024 Albumin [Mass/Vol] 4.6 g/dL Normal 3.3 - 5.0 gm/dL R em[facility] Chem Albumin/Globulin [Mass ratio] 1.6 {ratio} Normal 1.1 - 2.2 [facility] ALP [Catalytic activity/Vol] 50 [iU]/d Normal 21 - 98 Int._Unit/L [facility] ALT No additional P-5'-P [Catalytic activity/Vol] 68 [iU]/d High 6 - 46 Int._Unit/L [facility] Anion gap [Moles/Vol] 12 mmol/L Normal 6 - 16 mEq/L [facility] AST [Catalytic activity/Vol] 42 [iU]/d Normal 5 - 43 Int._Unit/L [facility] Bilirubin [Mass/Vol] 1.1 mg/dL Normal 0.0 - 1.1 mg/dL [facility] Calcium [Mass/Vol] 10.0 mg/dL Normal 8.9 - 11.1 mg/dL [facility] Chloride [Moles/Vol] 102 mmol/L Normal 101 - 111 mmol/L [facility] Cholesterol [Mass/Vol] 188 mg/dL Normal 120 - 200 mg/dL [facility] Cholesterol in HDL [Mass/Vol] 39 mg/dL Invalid Interpretation Code [facility] Comment on above: Result Comment: '>= 60 LOW RISK' '<= 40 HIGH RISK' Cholesterol in LDL [Mass/Vol] 124 mg/dL Normal <=129mg/dL [facility] Cholesterol in VLDL [Mass/Vol] 45 mg/dL High 7 - 40 mg/dL [facility] CO2 [Moles/Vol] 27 mmol/L Normal 21 - 31 mmol/L Remis ol Chem Creatinine [Mass/Vol] 1.0 mg/dL Normal 0.5 - 1.3 mg/dL [facility] eGFR 95 mL/min/1.73 m2 Normal >=59mL/min /1.73 m2 [facility] Globulin (S) [Mass/Vol] 2.8 g/dL Normal 1.4 - 4.0 gm/dL [facility] Glucose [Mass/Vol] 273 mg/dL High 55 - 199 mg/dL Re misol Chem Potassium [Moles/Vol] 5.1 mmol/L Normal 3.5 - 5.3 mmol/L [facility] Protein [Mass/Vol] 7.4 g/dL Normal 6.0 - 7.8 gm/dL R em[facility] Chem Sodium [Moles/Vol] 136 mmol/L Normal 135 - 145 mmol/L [facility] Triglyceride [Mass/Vol] 226 mg/dL High <=149mg/dL [facility] Urea nitrogen [Mass/Vol] 14 mg/dL Normal 5 - 21 mg/dL [facility] Urea nitrogen/Creatinine [Mass ratio] 14 mg/mg Normal 10 - 20 [facility] CHEMISTRYOrdered By: Jaylon Wills on 10-14-2024 HbA1c (Bld) [Mass fraction] 10.2 % High <=5.9% [facility] [place] [facility] CMP[place]14-2024 Albumin [Mass/Vol] 4.6 g/dL Normal 3.3-5.0 [facility] Comment on above: Performed By: #### 2 [id number] #### [facility] [address] [place] [address] Albumin/Globulin (S) [Mass conc ratio] 1.6 Normal 1.1-2.2 [facility] Comment on above: Performed By: #### 2 [id number] #### [facility] [address] [place] [address] ALP [Catalytic activity/Vol] 50 Int._Unit/L Normal 21-98 [facility] Comment on above: Performed By: #### 2 [id number] #### [facility] [address] [place] [address] ALT No additional P-5'-P [Catalytic activity/Vol] 68 Int._Unit/L High 6-46 [facility] Comment on above: Performed By: #### 2 [id number] #### [facility] [address] [place] [address] Anion gap [Moles/Vol] 12 mmol/L Normal 6-16 [facility] Comment on above: Performed By: #### 2 [id number] #### [facility] [address] [place] [address] AST [Catalytic activity/Vol] 42 Int._Unit/L Normal 5-43 [facility] Comment on above: Performed By: #### 2 [id number] #### [facility] [address] [place] [address] Bilirubin [Mass/Vol] 1.1 mg/dL Normal 0.0-1.1 [facility] Comment on above: Performed By: #### 2 [id number] #### [facility] [address] [place] [address] Calcium [Mass/Vol] 10.0 mg/dL Normal 8.9-11.1 [facility] Comment on above: Performed By: #### 2 [id number] #### [facility] [address] [place] [address] Chloride [Moles/Vol] 102 mmol/L Normal 101-111 [facility] Comment on above: Performed By: #### 2 [id number] #### [facility] [address] [place] [address] CO2 [Moles/Vol] 27 mmol/L Normal 21-31 [facility] Comment on above: Performed By: #### 2 [id number] #### [facility] [address] [place] [address] Creatinine [Mass/Vol] 1.0 mg/dL Normal 0.5-1.3 [facility] Comment on above: Performed By: #### 2 [id number] #### [facility] [address] [place] [address] Globulin (S) [Mass/Vol] 2.8 g/dL Normal 1.4-4.0 [facility] Comment on above: Performed By: #### 2 [id number] #### [facility] [address] [place] [address] Glucose [Mass/Vol] 273 mg/dL High 55-199 [facility] Comment on above: Performed By: #### 2 [id number] #### [facility] [address] [place] [address] Potassium [Moles/Vol] 5.1 mmol/L Normal 3.5-5.3 [facility] Comment on above: Performed By: #### 2 [id number] #### [facility] [address] [place] [address] Protein [Mass/Vol] 7.4 g/dL Normal 6.0-7.8 [facility] Comment on above: Performed By: #### 2 [id number] #### [facility] [address] [place] [address] Sodium [Moles/Vol] 136 mmol/L Normal 135-145 [facility] Comment on above: Performed By: #### 2 [id number] #### [facility] [address] [place] [address] Urea nitrogen [Mass/Vol] 14 mg/dL Normal 5-21 [facility] Comment on above: Performed By: #### 2 [id number] #### [facility] [address] [place] [address] Urea nitrogen/Creatinine [Mass ratio] 14 No Units Normal 10-20 [facility] Comment on above: Performed By: #### 2 [id number] #### [facility] [address] [place] [address] Family Medicine Office/Clini c Noteon 10-14-2024 Family Medicine Office/Clinic Note Family Medicine Office/Clinic Note Chief Complaint A1C follow up HPI Staff Irma is a 43 year old male presenting with 3 month f/u diabetes, HTN Do you have any of the following symptoms? Foot Exam: unsure Eye Exam: awhile Last A1C: July 10 2024 (10.4) Statin: simvastatin 20 mg Patient is here for follow up on hypertension. Continue Enalapril 20 mg qd and the amlodipine 10 mg qd added Enalapril 10 mg How often are you checking your blood pressure? _no What are your average readings? _ Yearly BMP: _ Concerned he has ear infection. Rt ear. Has been bothering him for the past several wks. History of Present Illness Patient presents in f/u for know diabetes, HTN, and hyperlipidemia. He reports he is not monitoring his blood sugar or blood pressure. He denies dizziness, headache, vision changes, chest pain, and heart palpitations. He is not experiencing any increased thirst or urination. He states his right ear has been hurting for over three weeks. He is not sure if it is related to his teeth or if it is his ear. He states he is having pain down the right side of his neck and in the right ear. He is wondering if he has an ear infection. He has not taken anything for the pain. Review of Systems PHQ Score Initial Depression Screen Score: 0 SCORE Constitutional: no fever, no chills, no sweats, no weakness Skin: no Jaundice, no rash, no lesions, nopetechiae ENMT: moderate ear pain, no sore throat, no congestion, no hoarseness Respiratory: no shortness of breath, no cough, no orthopnea, no wheezing Cardiovascular: no chest pain, no palpitations, no edema Musculoskeletal: no back pain, no trauma Additional ROS info: Except as noted in the above Review of Systems and in the History of Present Illness all other systems have been reviewed and are negative or noncontributory. Physical Exam Vitals & Measurements T: 36.9 ???C(Oral) RR: 18 BP: 134/86 HT: 73 in HT: 185 cm WT: 121.3 kg WT: 267.42 lb BMI: 35.44 General: alert, no acute distress Skin: warm, dry Head: no trauma, normocephalic Neck: Trachea midline, no adenopathy, no tenderness Eye: normal conjunctiva, sclera clear ENMT: TM's clear mild erythema of right TM, tenderness along the right neck below the ear Cardiovascular: regular rate and rhythm, normal peripheral perfusion Respiratory: Lungs CTA, respirations non labored Neurological: oriented x 4, LOC appropriate for agespeech normal Psychiatric: cooperative, affect appropriate for age, normal judgement, normal psychiatric thoughts. Assessment/Plan 1. Diabetes (E11.9: Type 2 diabetes mellitus without complications) Uncontrolled Encouraged to monitor blood glucose daily, log, and bring to next appointment Last HgbA1C was 10.4% in June 2024 Encouraged low carb diet and daily exercise Refills of glipizide 10 mf, MetFormin 100 mg, and pioglitazone 45 mg at today's visit Awaiting laboratory results f/u 3 months Ordered: glipiZIDE, 10 mg = 1 tab(s), Oral, Daily, # 90 tab(s), Refills(s) 1, Pharmacy: [facility] 185, cm, 10/14/24 7:46:00 EST, Height/Length Dosing, 121.3, kg, 10/14/24 7:46:00 EST, Weight Dosing glipiZIDE, 10 mg = 1 tab(s), Oral, Daily, # 90 tab(s), Refills(s) 0, Pharmacy: [facility] 185, cm, 08/15/24 8:05:00 EST, Height/Length Dosing, 119.1, kg, 08/15/24 8:05:00 EST, Weight Dosing metformin, See Instructions, TAKE ONE TABLET BY MOUTH TWICE A DAY, # 180 tab(s), Refills(s) 1, Pharmacy: [facility] 185, cm, 10/14/24 7:46:00 EST, Height/Length Dosing, 121.3, kg, 10/14/24 7:46:00 EST, Weight Dosing pioglitazone, 45 mg = 1 tab(s), Oral, Daily, # 90 tab(s), Refills(s) 1, Pharmacy: [facility] 185, cm, 10/14/24 7:46:00 EST, Height/Length Dosing, 121.3, kg, 10/14/24 7:46:00 EST, Weight Dosing Comprehensive Metabolic Panel HgbA1c Lab Specimen Collect [id number] Lab Specimen Collect [id number] Lipid Panel 2. HTN (hypertension) (I10: Essential (primary) hypertension) Stable Controlled Encourage low sodium diet and exercise Amlodipine 10 mg, enalapril 20 mg refilled at today's visit Awaiting laboratory results f/u 3 months Ordered: amlodipine, See Instructions, TAKE ONE TABLET BY MOUTH ONCE DAILY, # 90 tab(s), Refills(s) 1, Pharmacy: [facility] 185, cm, 10/14/24 7:46:00 EST, Height/Length Dosing, 121.3, kg, 10/14/24 7:46:00 EST, Weight Dosing enalapril, 20 mg = 1 tab(s), Oral, Daily, # 90 tab(s), Refills(s) 1, Pharmacy: [facility] 185, cm, 10/14/24 7:46:00 EST, Height/Length Dosing, 121.3, kg, 10/14/24 7:46:00 EST, Weight Dosing enalapril, 10 mg = 1 tab(s), Oral, Daily, # 30 tab(s), Refills(s) 0, Pharmacy: [facility], 185, cm, 07/10/24 7:24:00 EDT, Height/Length Dosing, 119.9, kg, 07/10/24 7:24:00 EDT, Weight Dosing glipiZIDE, 10 mg = 1 tab(s), Oral, Daily, # 30 tab(s), Refills(s) 0, Pharmacy: [facility] 185, cm, 08/15/24 8:05:00 EST, Height/Length Dosing, 11 (more content not included)... Normal [facility] Comment on above: Result Comment: Elec tronically Signed By: PASQUALE STERN CNP\Date and Time Signed: 10/14/24 08:34 EST [id number] 10-14-2024 HbA1c (Bld) [Mass fraction] 10.2 % High <=5.9 [facility] Comment on above: Performed By: #### 7 [id number] #### [facility] [address] [place] [address] Lipid Panelon 10-14-2024 Cholesterol [Mass/Vol] 188 mg/dL Normal 120-200 [facility] Comment on above: Performed By: #### 2 [id number] #### [facility] [address] [place] [address] Cholesterol in HDL [Mass/Vol] 39 mg/dL Invalid Interpretation Code [facility] Comment on above: Result Comment: '>= 60 LOW RISK' '<= 40 HIGH RISK' Performed By: #### 2 [id number] #### [facility] [address] [place] [address] Cholesterol in LDL [Mass/Vol] 124 mg/dL Normal <=129 [facility] Comment on above: Performed By: #### 2 [id number] #### [facility] [address] [place] [address] Cholesterol in VLDL [Mass/Vol] 45 mg/dL High 7-40 [facility] Comment on above: Performed By: #### 2 [id number] #### [facility] [address] [place] [address] Triglyceride [Mass/Vol] 226 mg/dL High <=149 [facility] Comment on above: Performed By: #### 2 [id number] #### [facility] [address] [place] [address] Patient Educationon 10-14-19 25 Patient Education Patient Education Normal [facility] eGFRon 10-14-2024 eGFR 95 mL/min/1.73 m2 Normal >=59 [facility] Comment on above: Performed By: #### 1 [id number] #### [facility] [address] [place] [address] Family Medicine Office/Clini c Noteon 08-15-2024 Family Medicine Office/Clinic Note Family Medicine Office/Clinic Note Chief Complaint Follow up to BP HPI Staff Irma is a 43 year old male presenting with 4 week f/u REINIER- Continue with Enalapril 20 mg qd & Amlodipine 10 mg qd Added enalapril 10mg qd. Concerned if he is taking meds correctly. Patient is here for follow up on hypertension. How often are you checking your blood pressure? _no What are your average readings? _ Yearly BMP: 02/21/24 History of Present Illness Patient presents today with his in f/u for HTN. He reports he does have headaches and blurry vision sometimes. He denies chest pain and heart palpitations. He does not check his blood pressure and he reports he had coffee before he came in today. He is a smoker. His is questioning his medication and this provider explained that at his next visit he should bring in his medications for review. Review of Systems PHQ Score Initial Depression Screen Score: 0 SCORE Physical Exam Vitals & Measurements T: 36.7 ???C(Oral) HR: 74(Peripheral) RR: 18 BP: 142/90 SpO2: 99% HT: 73 in HT: 185 cm WT: 119.1 kg WT: 262.57 lb BMI: 34.8 General: alert, no acute distress Cardiovascular: regular rate and rhythm, normal peripheral perfusion Respiratory: Lungs CTA, respirations non labored Extremities: no deformity, no trauma Neurological: oriented x 4, LOC appropriate for age speech normal Assessment/Plan 1. HTN (hypertension) (I10: Essential (primary) hypertension) Continue the enalapril 20 mg one tablet daily and the amlodipine 10 mg daily Add enalapril, 10 mg one tablet daily - may take with the 20 mg tablet Encourage low sodium diet & exercise f/u in 8 weeks Ordered: glipiZIDE, 10 mg = 1 tab(s), Oral, Daily, # 30 tab(s), Refills(s) 0, Pharmacy: [facility] 185, cm, 08/15/24 8:05:00 EST, Height/Length Dosing, 119.1, kg, 08/15/24 8:05:00 EST, Weight Dosing 2. Diabetes (E11.9: Type 2 diabetes mellitus without complications) Uncontrolled Ordered: glipiZIDE, 10 mg = 1 tab(s), Oral, Daily, # 30 tab(s), Refills(s) 0, Pharmacy: [facility], 185, cm, 08/15/24 8:05:00 EST, Height/Length Dosing, 119.1, kg, 08/15/24 8:05:00 EST, Weight Dosing glipiZIDE, 10 mg = 1 tab(s), Oral, Daily, # 90 tab(s), Refills(s) 0, Pharmacy: [facility], 185, cm, 08/15/24 8:05:00 EST, Height/Length Dosing, 119.1, kg, 08/15/24 8:05:00 EST, Weight Dosing 3. Vapes nicotine containing substance (Z72.0: Tobacco use) We strongly recommend to quit tobacco use. Cigarette smoking harms nearly every organ of the body, causes many diseases, and reduces the health of smokers in general. Quitting smoking lowers your risk for smoking-related diseases and can add years to your life. We encourage you to visit www.smokefree.gov access to helpful resources including free telephone support. If you decide on prescription treatment to help you quit, we would be happy to provide these. Ordered: glipiZIDE, 10 mg = 1 tab(s), Oral, Daily, # 30 tab(s), Refills(s) 0, Pharmacy: [facility], 185, cm, 08/15/24 8:05:00 EST, Height/Length Dosing, 119.1, kg, 08/15/24 8:05:00 EST, Weight Dosing 4. BMI 34.0-34.9,adult (Z68.34: Body mass index [BMI] 34.0-34.9, adult) The standard range for ages 18 and older is >=18.5 and < 25 kg/m2. Your BMI today was above this range, this falls in the overweight to obese category and there are medical benefits to weight loss. We can offer counselling, referral, and/or medical support in addressing this problem. Your BMI and weight management will be followed at subsequent visits. Ordered: glipiZIDE, 10 mg = 1 tab(s), Oral, Daily, # 30 tab(s), Refills(s) 0, Pharmacy: [facility] 185, cm, 08/15/24 8:05:00 EST, Height/Length Dosing, 119.1, kg, 08/15/24 8:05:00 EST, Weight Dosing 5. Obesity (BMI 30-39.9) (E66.9: Obesity, unspecified) The standard range for ages 18 and older is >=18.5 and < 25 kg/m2. Your BMI today was above this range, this falls in the overweight to obese category and there are medical benefits to weight loss. We can offer counselling, referral, and/or medical support in addressing this problem. Your BMI and weight management will be followed at subsequent visits. Ordered: glipiZIDE, 10 mg = 1 tab(s), Oral, Daily, # 30 tab(s), Refills(s) 0, Pharmacy: [facility] 185, cm, 08/15/24 8:05:00 EST, Height/Length Dosing, 119.1, kg, 08/15/24 8:05:00 EST, Weight Dosing Follow-up No qualifying data available Patient Education Managing Your Hypertension Hypertension, Adult, [id number] Problem List/Past Medical History Ongoing Abscess of left external cheek BMI 34.0-34.9,adult BMI 35.0-35.9,adult Depression Diabetes HTN (hypertension) Hyperlipidemia Obesity (BMI 30-39.9) Vapes nicotine containing substance Historical No qualifying data Procedure/Surgical History Anterior cruciate ligament of knee joint, Photorefractive keratectomy. Medications amLODIPine 10 mg Tab, 10 mg= 1 tab(s (more content not included)... Normal [facility] Comment on above: Result Comment: Elec tronically Signed By: PASQUALE STERN CNP\.br\Date and Time Signed: 08/15/24 08:53 EST Ambulatory Visit Summaryon 1 Ambulatory Visit Summary Ambulatory Visit Summary SULTANA JOSHUA :1980 Visit Date:07/10/2024 Ambulatory Visit Instructions Your Diagnosis Diabetes HTN (hypertension) Former smoker BMI 35.0-35.9,adult Exogenous obesity Your Care Team Attending Physician - PASQUALE STERN CNP Primary Care Physician - PASQUALE STERN CNP This Is Your Medications List amlodipine (amLODIPine 10 mg Tab) citalopram (citalopram 20 mg Tab) enalapril (enalapril 10 mg Tab) enalapril (enalapril 20 mg Tab) glipiZIDE (glipiZIDE 5 mg ER Tab) metformin (metformin 1000 mg Tab) omeprazole (omeprazole 20 mg Cap-DR) pioglitazone (pioglitazone 45 mg Tab) simvastatin (simvastatin 20 mg Tab) Procedures Performed Anterior cruciate ligament of knee joint, Photorefractive keratectomy. Discharge Vitals Temperature (Oral) 36.8 ???C Heart Rate (Peripheral) 74 Respiratory Rate 18 Blood Pressure 150/100 Height 185.0 cm Height 73 in Weight 119.9 kg Weight 263.78 lb BMI 35.03 What to do next Scheduled Follow-Up Appointments Sunday 8:00 AM EST With: PASQUALE STERN CNP Where: [facility] [address] [address]- You Need to Schedule the Following Appointments Follow Up with PASQUALE STERN CNP [facility] When: Within 4 weeks Comments: HTN Where: [address] [place] [phone] Business (1) You Need to Complete the Following HgbA1c, Blood, Routine collect, 07/10/24, Order for future visit, Lab Collect, Diabetes, Print Label By Order Location Medications What How Much When Why Instructions Changed enalapril (enalapril 10 mg Tab) 1 Tablets By Mouth Every day HTN (hypertension) Pickup at [facility] Changed enalapril (enalapril 20 mg Tab) 1 Tablets By Mouth Every day Diabetes HTN (hypertension) BMI 35.0-35.9,adult Obesity due to excess calories Vapes nicotine containing substance Unchanged amlodipine (amLODIPine 10 mg Tab) 1 Tablets By Mouth Every day Unchanged citalopram (citalopram 20 mg Tab) 0.5 Tablets By Mouth Every day Unchanged glipiZIDE (glipiZIDE 5 mg ER Tab) 1 Tablets By Mouth Every day Diabetes Unchanged metformin (metformin 1000 mg Tab) 1 Tablets By Mouth 2 times a day Unchanged omeprazole (omeprazole 20 mg Cap-DR) 1 Capsules By Mouth Every day HTN (hypertension) Unchanged pioglitazone (pioglitazone 45 mg Tab) 1 Tablets By Mouth Every day Unchanged simvastatin (simvastatin 20 mg Tab) 1 Tablets By Mouth Every day Pharmacy Information [facility]: [address] [place], [place] [id number] [phone] Allergies No Known Medication Allergies Problems Ongoing - Any problem that you are currently receiving treatment for. Abscess of left external cheek BMI 35.0-35.9,adult Depression Diabetes HTN (hypertension) Hyperlipidemia Obesity due to excess calories Vapes nicotine containing substance Patient Survey You may receive a survey via text or e-mail asking about your office visit. Please share your experience with us by completing your survey. We appreciate your feedback and thank you for choosing us for your care. Normal [facility] CHEMISTRYOrdered By: Sakina Langley on 07-10-2024 HbA1c (Bld) [Mass fraction] 10.4 % High <=5.9% [facility] [place] [facility] [place] Medicine Office/Clini c Noteon 07-10-2024 Family Medicine Office/Clinic Note Family Medicine Office/Clinic Note HPI Staff Sultana is a 43 year old male presenting with 2m follow up to medication changes. Contrerasuvtara discontinued @REINIER & enalapril increased to 20mg. Pt to get A1C drawn today. Do you have any of the following symptoms? Foot Exam: REINIER Eye Exam: its been awhile Last A1C: 11.5 % High (02/21/24 07:07:00) Statin: Simvastatin Does not check BS @ home Patient is here for follow up on hypertension. How often are you checking your blood pressure? _ no What are your average readings? _ I have reviewed and verified the staff HPI to be accurate for this encounter. History of Present Illness Patient presents today in f/u for diabetes and HTN. He reports he does not monitor his blood sugar or his blood pressure. He reports he does have headaches and blurry vision sometimes. He denies chest pain and heart palpitations. He denies increased thirst or urination. Review of Systems PHQ Score Initial Depression Screen Score: 0 SCORE Constitutional: no fever, no chills, no sweats, no weakness Respiratory: no shortness of breath, no cough, no orthopnea, no wheezing Cardiovascular: no chest pain, no palpitations, no edema Additional ROS info: Except as noted in the above Review of Systems and in the History of Present Illness all other systems have been reviewed and are negative or noncontributory. Physical Exam Vitals & Measurements T: 36.8 ???C(Oral) HR: 74(Peripheral) RR: 18 BP: 148/90 SpO2: 96% HT: 73 in HT: 185.0 cm WT: 119.9 kg WT: 263.78 lb BMI: 35.03 General: alert, no acute distress Skin: warm, dry Head: no trauma, normocephalic Neck: Trachea midline, no adenopathy, no tenderness Eye: normal conjunctiva, sclera clear Cardiovascular: regular rate and rhythm, normal peripheral perfusion Respiratory: Lungs CTA, respirations non labored Extremities: no deformity, no trauma Neurological: oriented x 4, LOC appropriate for age speech normal Psychiatric: cooperative, affect appropriate for age, normal judgement, normal psychiatric thoughts. Assessment/Plan 1. Diabetes (E11.9: Type 2 diabetes mellitus without complications) Encouraged low carb diet and daily exercise Patient declined referral to real estate analyst for assistance with his diet in regards to his diabetes Continue glipizide , MetFormin, & pioglitazone 45 Awaiting HgbA1C results Patient given name and number of eye doctor f/u TBD Ordered: HgbA1c Lab Specimen Collect [id number] 2. HTN (hypertension) (I10: Essential (primary) hypertension) Continue the enalapril 20 mg one tablet daily and the amlodipine 10 mg daily Add enalapril, 10 mg one tablet daily - may take with the 20 mg tablet Encourage low sodium diet & exercise f/u in 4 weeks Ordered: enalapril, 10 mg = 1 tab(s), Oral, Daily, # 30 tab(s), Refills(s) 0, Pharmacy: [facility], 185, cm, 07/10/24 7:24:00 EDT, Height/Length Dosing, 119.9, kg, 07/10/24 7:24:00 EDT, Weight Dosing Lab Specimen Collect [id number] 3. Former smoker (Z87.891: Personal history of nicotine dependence) Encouraged to continue as a non-smoker Ordered: Lab Specimen Collect [id number] 4. BMI 35.0-35.9,adult (Z68.35: Body mass index [BMI] 35.0-35.9, adult) The standard range for ages 18 and older is >=18.5 and < 25 kg/m2. Your BMI today was above this range, this falls in the overweight to obese category and there are medical benefits to weight loss. We can offer counselling, referral, and/or medical support in addressing this problem. Your BMI and weight management will be followed at subsequent visits. Ordered: Lab Specimen Collect [id number] 5. Exogenous obesity (E66.09: Other obesity due to excess calories) The standard range for ages 18 and older is >=18.5 and < 25 kg/m2. Your BMI today was above this range, this falls in the overweight to obese category and there are medical benefits to weight loss. We can offer counselling, referral, and/or medical support in addressing this problem. Your BMI and weight management will be followed at subsequent visits. Ordered: Lab Specimen Collect [id number] Follow-up With When Contact Information PASQUALE STERN CNP, FAM Within [address] [place] [phone] Business (1) Additional Instructions: HTN Patient Education Diabetes Mellitus and Nutrition, Adult Problem List/Past Medical History Ongoing Abscess of left external cheek BMI 35.0-35.9,adult Depression Diabetes HTN (hypertension) Hyperlipidemia Obesity due to excess calories Vapes nicotine containing substance Historical No qualifying data Procedure/Surgical History Anterior cruciate ligament of knee joint, Photorefractive keratectomy. Medications amLODIPine 10 mg Tab, 10 mg= 1 tab(s), Oral, Daily, 1 refills citalopram 20 mg Tab, 10 mg= 0.5 tab(s), Oral, Daily enalapril 10 mg Tab, 10 mg= 1 tab(s), Oral, Daily enalapril 20 mg Tab, 20 mg= 1 tab(s), Oral, Daily, 1 refills glipiZIDE 5 mg ER Tab, 5 mg= 1 (more content not included)... Normal [facility] Comment on above: Result Comment: Elec tronically Signed By: PASQUALE STERN CNP\.br\Date and Time Signed: 07/10/24 10:58 EDT [id number] 07-10-2024 HbA1c (Bld) [Mass fraction] 10.4 % High <=5.9 [facility] Comment on above: Performed By: #### [id number] #### [facility] [address] [place] [address] Ambulatory Visit Summaryon 0 05-15-2024 Ambulatory Visit Summary Ambulatory Visit Summary SULTANA JOSHUA Sita :1980 [id number] Visit Date:05/15/2024 Ambulatory Visit Instructions Your Diagnosis Diabetes HTN (hypertension) BMI 35.0-35.9,adult Obesity due to excess calories Vapes nicotine containing substance Your Care Team Attending Physician - PASQUALE STERN CNP Primary Care Physician - PASQUALE STERN CNP This Is Your Medications List Contact prescribing physician if questions or concerns amlodipine (amLODIPine 10 mg Tab) citalopram (citalopram 20 mg Tab) glipiZIDE (glipiZIDE 5 mg ER Tab) metformin (metformin 1000 mg Tab) omeprazole (omeprazole 20 mg Cap-DR) pioglitazone (pioglitazone 45 mg Tab) simvastatin (simvastatin 20 mg Tab) sitagliptin (Januvia 100 mg Tab) [Image Removed: STOP]Stop taking these medications enalapril (enalapril 10 mg Tab) Procedures Performed Anterior cruciate ligament of knee joint, Photorefractive keratectomy. Discharge Vitals Heart Rate (Peripheral) 76 Respiratory Rate 16 Blood Pressure 162/96 Height 185 cm Height 73 in Weight 121.8 kg Weight 267.96 lb BMI 35.59 What to do next Scheduled Follow-Up Appointments 2023 7:20 AM EDT With: PASQUALE STERN CNP Where: [place] [id number]- Medications What How Much When Why Instructions Unchanged amlodipine (amLODIPine 10 mg Tab) 1 Tablets By Mouth Every day Contact prescribing physician if questions or concerns Unchanged citalopram (citalopram 20 mg Tab) 0.5 Tablets By Mouth Every day Contact prescribing physician if questions or concerns Unchanged glipiZIDE (glipiZIDE 5 mg ER Tab) 1 Tablets By Mouth Every day Diabetes Contact prescribing physician if questions or concerns Unchanged metformin (metformin 1000 mg Tab) 1 Tablets By Mouth 2 times a day Contact prescribing physician if questions or concerns Unchanged omeprazole (omeprazole 20 mg Cap-DR) 1 Capsules By Mouth Every day HTN (hypertension) Contact prescribing physician if questions or concerns Unchanged pioglitazone (pioglitazone 45 mg Tab) 1 Tablets By Mouth Every day Contact prescribing physician if questions or concerns Unchanged simvastatin (simvastatin 20 mg Tab) 1 Tablets By Mouth Every day Contact prescribing physician if questions or concerns Unchanged sitagliptin (Januvia 100 mg Tab) 1 Tablets By Mouth Every day Contact prescribing physician if questions or concerns What How Much When Why Comments Stop Taking enalapril (enalapril 10 mg Tab) 1 Tablets By Mouth Every day HTN (hypertension) Allergies No Known Medication Allergies Problems Ongoing - Any problem that you are currently receiving treatment for. Abscess of left external cheek BMI 35.0-35.9,adult Depression Diabetes HTN (hypertension) Hyperlipidemia Obesity due to excess calories Vapes nicotine containing substance Patient Survey You may receive a survey via text or e-mail asking about your office visit. Please share your experience with us by completing your survey. We appreciate your feedback and thank you for choosing us for your care. Mayelin [facility] Family Medicine Office/Clini c Noteon 05-15-2024 Family Medicine Office/Clinic Note Family Medicine Office/Clinic Note Chief Complaint f/u to HTN & DM HPI Staff f/u to HTN & DM Patient is here for follow up on hypertension. How often are you checking your blood pressure? Doesnt check BP at home What are your average readings? _150/90 Yearly BMP: _02/21/24 Do you have any of the following symptoms? Foot Exam: denies Eye Exam: denies Last A1C: Hgb A1C %: 11.5 % High (02/21/24 07:07:00) Statin: Simvastatin Does not check BS @ home History of Present Illness Patient presents today in f/u for known diabetes & HTN. He reports he does not check his blood pressure or monitor his blood sugar. He denies increased thirst, urination, dizziness, headaches, chest pain, or heart palpitations. He relates he does drink caffeine, energy drinks, vapes, and consumes a great deal of processed meat on the weekends. He reports he dos not check his feet regularly and his cuts his toe nails. His blood pressure is elevated at 165/96 today in the office and was recehecked at 152/90 Review of Systems PHQ Score Initial Depression Screen Score: 0 SCORE Constitutional: no fever, no chills, no sweats, no weakness Respiratory: no shortness of breath, no cough, no orthopnea, no wheezing Cardiovascular: no chest pain, no palpitations, no edema Additional ROS info: Except as noted in the above Review of Systems and in the History of Present Illness all other systems have been reviewed and are negative or noncontributory. Physical Exam Vitals & Measurements HR: 76(Peripheral) RR: 16 BP: 152/90 SpO2: 98% HT: 73 in HT: 185 cm WT: 121.8 kg WT: 267.96 lb BMI: 35.59 General: alert, no acute distress Cardiovascular: regular rate and rhythm, normal peripheral perfusion Respiratory: Lungs CTA, respirations non labored Extremities: no deformity, no trauma Foot: no lesions, normal pulses, normal sensation Neurological: oriented x 4, LOC appropriate for age speech normal Diabetic Foot Exam Decreased Monofilament Sensation Foot: Left - Normal, Right - Normal Bunions/Foot Deformity: Left - Normal, Right - Normal Abnormal Pulse Foot: Left - Normal, Right - Normal Skin Lesions Foot: Left - Normal, Right - Normal Vibratory Sensation Foot: Left - Normal, Right - Normal Foot Exam Result: Normal foot exam Assessment/Plan 1. Diabetes (E11.9: Type 2 diabetes mellitus without complications) Discontinue januvia Continue glipiZIDE 5 mg ER on tablet one tablet po daily Encourage lowcarb diet and daily exercise Will check Hgb A1C at his next visit f/u in 6 weeks Ordered: enalapril, 20 mg = 1 tab(s), Oral, Daily, # 90 tab(s), Refills(s) 0, Pharmacy: [facility] 185, cm, 05/15/24 7:36:00 EDT, Height/Length Dosing, 121.8, kg, 05/15/24 7:36:00 EDT, Weight Dosing glipiZIDE, 5 mg = 1 tab(s), Oral, Daily, # 90 tab(s), Refills(s) 0, Pharmacy: [facility] 185, cm, 04/09/24 7:36:00 EDT, Height/Length Dosing, 118.4, kg, 04/09/24 7:36:00 EDT, Weight Dosing 2. HTN (hypertension) (I10: Essential (primary) hypertension) Uncontrolled Discussed limiting caffeine and sodium to improve blood pressure Increase enalapril 20 mg one tablet by mouth daily Continue amlodipine 10 mg one tablet po daily f/u in 6 weeks Ordered: enalapril, 20 mg = 1 tab(s), Oral, Daily, # 90 tab(s), Refills(s) 0, Pharmacy: [facility] 185, cm, 05/15/24 7:36:00 EDT, Height/Length Dosing, 121.8, kg, 05/15/24 7:36:00 EDT, Weight Dosing 3. BMI 35.0-35.9,adult (Z68.35: Body mass index [BMI] 35.0-35.9, adult) We strongly recommend to quit tobacco use. Cigarette smoking harms nearly every organ of the body, causes many diseases, and reduces the health of smokers in general. Quitting smoking lowers your risk for smoking-related diseases and can add years to your life. We encourage you to visit www.smokefree.gov access to helpful resources including free telephone support. If you decide on prescription treatment to help you quit, we would be happy to provide these. Ordered: enalapril, 20 mg = 1 tab(s), Oral, Daily, # 90 tab(s), Refills(s) 0, Pharmacy: [facility] 185, cm, 05/15/24 7:36:00 EDT, Height/Length Dosing, 121.8, kg, 05/15/24 7:36:00 EDT, Weight Dosing 4. Obesity due to excess calories (E66.09: Other obesity due to excess calories) The standard range for ages 18 and older is >=18.5 and < 25 kg/m2. Your BMI today was above this range, this falls in the overweight to obese category and there are medical benefits to weight loss. We can offer counselling, referral, and/or medical support in addressing this problem. Your BMI and weight management will be followed at subsequent visits. Ordered: enalapril, 20 mg = 1 tab(s), Oral, Daily, # 90 tab(s), Refills(s) 0, Pharmacy: [facility] 185, cm, 05/15/24 7:36:00 EDT, Height/Length Dosing, 121.8, kg, 05/15/24 7:36:00 EDT, Weight Dosing 5. Vapes nicotine containing substance (Z72.0: Tobacco use) Ordered: enalapril, 20 mg = 1 tab(s), Oral, (more content not included)... [facility] Comment on above: Result Comment: Elec tronically Signed By: PASQUALE STERN CNP\.br\Date and Time Signed: 05/15/24 08:43 EDT Provider Letteron 05-15-2024 Provider Letter Provider Letter May 15, 2024 SULTANA JOSHUA [address] [place] [id number] : 1980 To Whom It May Concern, Please excuse above patient from work, Sultana did have an appointment this morning 05-15-24 Date of Illness: From: _ To: _ May Return to Work On:05-15-24 Restrictions: _ Comments: _ Sincerely, [place] [address] [facility] Ambulatory Visit Summaryon 0 04-09-2024 Ambulatory Visit Summary Ambulatory Visit Summary SULTANA JOSHUA :1980 Visit Date:04/09/2024 Ambulatory Visit Instructions Your Diagnosis Sore throat BMI 34.0-34.9,adult Class 1 obesity due to excess calories in adult Vaping-related disorder Your Care Team Attending Physician - PASQUALE STERN CNP Primary Care Physician - PASQUALE STERN CNP This Is Your Medications List amlodipine (amLODIPine 10 mg Tab) citalopram (citalopram 20 mg Tab) enalapril (enalapril 10 mg Tab) glipiZIDE (glipiZIDE 5 mg ER Tab) metformin (metformin 1000 mg Tab) omeprazole (omeprazole 20 mg Cap-DR) omeprazole (omeprazole 20 mg Cap-DR) pioglitazone (pioglitazone 45 mg Tab) simvastatin (simvastatin 20 mg Tab) sitagliptin (Januvia 100 mg Tab) Procedures Performed Anterior cruciate ligament of knee joint, Photorefractive keratectomy. Discharge Vitals Temperature (Oral) 36.7 ?C Heart Rate (Peripheral) 76 Respiratory Rate 16 Blood Pressure 136/82 Height 185 cm Height 73 in Weight 118.4 kg Weight 260.48 lb BMI 34.59 What to do next Scheduled Follow-Up Appointments Sunday 7:20 AM EDT With: PASQUALE STERN CNP Where: [place] [phone] Medications What How Much When Why Instructions Unchanged amlodipine (amLODIPine 10 mg Tab) 1 Tablets By Mouth Every day Unchanged citalopram (citalopram 20 mg Tab) 0.5 Tablets By Mouth Every day Unchanged enalapril (enalapril 10 mg Tab) 1 Tablets By Mouth Every day HTN (hypertension) Unchanged glipiZIDE (glipiZIDE 5 mg ER Tab) 1 Tablets By Mouth Every day Diabetes Unchanged metformin (metformin 1000 mg Tab) 1 Tablets By Mouth 2 times a day Unchanged omeprazole (omeprazole 20 mg Cap-DR) 1 Capsules By Mouth Every day before breakfast Unchanged omeprazole (omeprazole 20 mg Cap-DR) 1 Capsules By Mouth Every day HTN (hypertension) Unchanged pioglitazone (pioglitazone 45 mg Tab) 1 Tablets By Mouth Every day Unchanged simvastatin (simvastatin 20 mg Tab) 1 Tablets By Mouth Every day Unchanged sitagliptin (Januvia 100 mg Tab) 1 Tablets By Mouth Every day Allergies No Known Medication Allergies Problems Ongoing - Any problem that you are currently receiving treatment for. Abscess of left external cheek BMI 35.0-35.9,adult Depression Diabetes HTN (hypertension) Hyperlipidemia Obesity due to excess calories Patient Survey You may receive a survey via text or e-mail asking about your office visit. Please share your experience with us by completing your survey. We appreciate your feedback and thank you for choosing us for your care. Mayelin [facility] Medicine Office/Clini c Noteon 04-09-2024 Family Medicine Office/Clinic Note Family Medicine Office/Clinic Note HPI Staff Sultana is a 43 year old male presenting for acute sick visit Onset: yesterday, woke up with it and slept all day Has a runny nose and drainage down the throat Pain Location: throat, but it's gone today Relieved by: OTC used: didn't try anything Hx of strep throat: no Questions/Concerns: none History of Present Illness Patient present today for evaluation of sore throat. He states he woke up yesterday morning with a sore throat, called off work, and slept all day. Today he states he does not have a sore throat today he has just noted some nasal drainage down his throat. He denies a fever, ear pain, or throat pain. He reports he has not been around anyone that is sick and he did not test for COVID. He declines testing for COVID in the office today and he has not taken any OTC medications. He states he called off work and will need a note. Review of Systems PHQ Score Initial Depression Screen Score: 0 SCORE Constitutional: no fever, no chills, no sweats, no weakness Skin: no Jaundice, no rash, no lesions, nopetechiae ENMT: no ear pain, no sore throat, no congestion, no hoarseness Respiratory: no shortness of breath, no cough, no orthopnea, no wheezing Cardiovascular: no chest pain, no palpitations, no edema Musculoskeletal: no back pain, no trauma Neurologic: no headache, no dizziness, no numbness, no weakness Psychiatric: no sleeping problems, no irritability, no mood swings/depression. Additional ROS info: Except as noted in the above Review of Systems and in the History of Present Illness all other systems have been reviewed and are negative or noncontributory. Physical Exam Vitals & Measurements T: 36.7 ?C(Oral) HR: 76(Peripheral) RR: 16 BP: 136/82 SpO2: 99% HT: 73 in HT: 185 cm WT: 118.4 kg WT: 260.48 lb BMI: 34.59 General: alert, no acute distress ENMT: TM's clear, oral mucosa moist, no pharyngeal erythema or exudate Cardiovascular: regular rate and rhythm, normal peripheral perfusion Respiratory: Lungs CTA, respirations non labored Extremities: no deformity, no trauma Neurological: oriented x 4, LOC appropriate for age speech normal Assessment/Plan 1. Sore throat (J02.9: Acute pharyngitis, unspecified) Encouraged OTC cetirizine as needed Encouraged to gargle with warm saline water Throat lozenges as needed Note for employer completed and given to patient f/u if no improvement in 3-5 days 2. BMI 34.0-34.9,adult (Z68.34: Body mass index [BMI] 34.0-34.9, adult) The standard range for ages 18 and older is >=18.5 and < 25 kg/m2. Your BMI today was above this range, this falls in the overweight to obese category and there are medical benefits to weight loss. We can offer counselling, referral, and/or medical support in addressing this problem. Your BMI and weight management will be followed at subsequent visits. 3. Class 1 obesity due to excess calories in adult (E66.09: Other obesity due to excess calories) The standard range for ages 18 and older is >=18.5 and < 25 kg/m2. Your BMI today was above this range, this falls in the overweight to obese category and there are medical benefits to weight loss. We can offer counselling, referral, and/or medical support in addressing this problem. Your BMI and weight management will be followed at subsequent visits. 4. Vaping-related disorder (U07.0: Vaping-related disorder) Encouraged to not vape Follow-up No qualifying data available Problem List/Past Medical History Ongoing Abscess of left external cheek BMI 35.0-35.9,adult Depression Diabetes HTN (hypertension) Hyperlipidemia Obesity due to excess calories Historical No qualifying data Procedure/Surgical History Anterior cruciate ligament of knee joint, Photorefractive keratectomy. Medications amLODIPine 10 mg Tab, 10 mg= 1 tab(s), Oral, Daily citalopram 20 mg Tab, 10 mg= 0.5 tab(s), Oral, Daily enalapril 10 mg Tab, 10 mg= 1 tab(s), Oral, Daily glipiZIDE 5 mg ER Tab, 5 mg= 1 tab(s), Oral, Daily Januvia 100 mg Tab, 100 mg= 1 tab(s), Oral, Daily, 1 refills metformin 1000 mg Tab, 1000 mg= 1 tab(s), Oral, BID omeprazole 20 mg Cap-DR, 20 mg= 1 cap(s), Oral, Daily, 1 refills omeprazole 20 mg Cap-DR, 20 mg= 1 cap(s), Oral, Daily pioglitazone 45 mg Tab, 45 mg= 1 tab(s), Oral, Daily, 1 refills simvastatin 20 mg Tab, 20 mg= 1 tab(s), Oral, Daily Allergies No Known Medication Allergies Social History Alcohol Current, Liquor, 1-2 times per month, 10/26/2023 Substance Abuse - Denies Substance Abuse, 10/26/2023 Tobacco Former smoker, quit more than 30 days ago Tobacco Use:. Current vaping or e-cigarette use Smokeless Tobacco Use:. Vaping, 04/09/2024 Family History Diabetes mellitus type 2: Father. Mitral valve disorder: Father. Immunizations Vaccine Date Status Comments pneumococcal 23-valent vaccine 11/07/2021 Recorded 2023-10-26: VIS DATE: 07/16/2019 [facility] Comment on above: Result Comment: Elec tronically Signed By: PASQUALE STERN CNP\.br\Date and Time Signed: 04/09/24 13:10 EDT Provider Letteron 04-09-2024 Provider Letter Provider Letter April 09, 2024 SULTANA JOSHUA [address] [place] [phone] : 1980 To Whom It May Concern, Please excuse above patient from work due to medical reasons Date of Illness: From: _04-08-24 To: _patient had appt. 04-09-24 @ 7:20 a.m. May Return to Work On:04-09-24 Restrictions: _NONE Comments: _ Sincerely, Family Medicine [address] [address] [facility] Ambulatory Visit Summaryon 0 03-18-2024 Ambulatory Visit Summary Ambulatory Visit Summary SULTANA JOSHUA :1980 Visit Date:03/18/2024 Ambulatory Visit Instructions Your Diagnosis HTN (hypertension) BMI 35.0-35.9,adult Class 1 obesity due to excess calories in adult Your Care Team Attending Physician - PASQUALE STERN CNP Primary Care Physician - PASQUALE STERN CNP This Is Your Medications List enalapril (enalapril 10 mg Tab) omeprazole (omeprazole 20 mg Cap-DR) omeprazole (omeprazole 20 mg Cap-DR) Contact prescribing physician if questions or concerns amlodipine (amLODIPine 10 mg Tab) citalopram (citalopram 20 mg Tab) glipiZIDE (glipiZIDE 5 mg ER Tab) metformin (metformin 1000 mg Tab) pioglitazone (pioglitazone 45 mg Tab) simvastatin (simvastatin 20 mg Tab) sitagliptin (Januvia 100 mg Tab) Procedures Performed Anterior cruciate ligament of knee joint, Photorefractive keratectomy. Discharge Vitals Temperature (Oral) 36.7 ?C Heart Rate (Peripheral) 76 Respiratory Rate 16 Blood Pressure 150/110 Height 73 in Height 185 cm Weight 263.78 lb Weight 119.9 kg BMI 35.03 What to do next Scheduled Follow-Up Appointments Sunday 7:20 AM EDT With: PASQUALE STERN CNP Where: [facility] [place] [facility] Family Medicine Office/Clini c Noteon 03-18-2024 Family Medicine Office/Clinic Note Family Medicine Office/Clinic Note HPI Staff Sultana is a 43 year old male presenting for one month follow up htn Patient is here for follow up on hypertension. How often are you checking your blood pressure? Doesnt check BP at home What are your average readings? N/A, Not checking at home Yearly BMP: 02/21/24 questions/concerns: needs all his meds changed over to mail away 90 days the omeprazole and enalapril are out and will need some to drug [facility] 30 days to cover until mail away arrives. Also patient wasn't sure if was to d/c the 2.5 mg enlapril and just take the 5mg History of Present Illness Patient presents today in f/u for HTN. At his last visit, the enalapril was increased to 5 mg one po daily in conjunction with the amlodipine 10 mg one tablet po daily. He reports he is not monitoring his blood pressure at home. Patient denies dizziness, headache, vision changes, chest pain, shortness of breath, or heart palpitations. His blood pressure is elevated today at 150/94. He denies missing any doses of his blood pressure medication. Review of Systems PHQ Score Initial Depression Screen Score: 0 SCORE Constitutional: no fever, no chills, no sweats, no weakness Respiratory: no shortness of breath, no cough, no orthopnea, no wheezing Cardiovascular: no chest pain, no palpitations, no edema Additional ROS info: Except as noted in the above Review of Systems and in the History of Present Illness all other systems have been reviewed and are negative or noncontributory. Physical Exam Vitals & Measurements T: 36.7 ?C(Oral) HR: 76(Peripheral) RR: 16 BP: 150/110 SpO2: 97% HT: 73 in HT: 185 cm WT: 119.9 kg WT: 263.78 lb BMI: 35.03 General: alert, no acute distress Cardiovascular: regular rate and rhythm, normal peripheral perfusion Respiratory: Lungs CTA, respirations non labored Extremities: no deformity, no trauma Neurological: oriented x 4, LOC appropriate for age speech normal Assessment/Plan 1. HTN (hypertension) (I10: Essential (primary) hypertension) Uncontrolled Increase enalapril to 10 mg one tablet daily Continue amlodipine 10 mg one tablet po daily- no refills today Encourage low sodium diet and exercise f/u in 4 weeks Ordered: enalapril, 10 mg = 1 tab(s), Oral, Daily, # 30 tab(s), Refills(s) 0, [facility]acy: [facility], 185, cm, 03/18/24 7:22:00 EDT, Height/Length Dosing, 119.9, kg, 03/18/24 7:22:00 EDT, Weight Dosing omeprazole, 20 mg = 1 cap(s), Oral, Daily, # 30 cap(s), Refills(s) 0, Pharmacy: [facility], 185, cm, 03/18/24 7:22:00 EDT, Height/Length Dosing, 119.9, kg, 03/18/24 7:22:00 EDT, Weight Dosing 2. BMI 35.0-35.9,adult (Z68.35: Body mass index [BMI] 35.0-35.9, adult) The standard range for ages 18 and older is >=18.5 and < 25 kg/m2. Your BMI today was above this range, this falls in the overweight to obese category and there are medical benefits to weight loss. We can offer counselling, referral, and/or medical support in addressing this problem. Your BMI and weight management will be followed at subsequent visits. Orders: omeprazole, 20 mg = 1 cap(s), Oral, Daily, before breakfast, # 90 cap(s), Refills(s) 1, Pharmacy: [facility] 185, cm, 03/18/24 7:22:00 EDT, Height/Length Dosing, 119.9, kg, 03/18/24 7:22:00 EDT, Weight Dosing Follow-up With When Contact Information PASQUALE STERN CNP, FAM Within [address] [place] [phone] Business (1) Additional Instructions: HTN Patient Education Heart Attack, Agxk-gn-Kbkl Problem List/Past Medical History Ongoing Abscess of left external cheek BMI 35.0-35.9,adult Depression Diabetes HTN (hypertension) Hyperlipidemia Obesity due to excess calories Historical No qualifying data Procedure/Surgical History Anterior cruciate ligament of knee joint, Photorefractive keratectomy. Medications amLODIPine 10 mg Tab, 10 mg= 1 tab(s), Oral, Daily citalopram 20 mg Tab, 10 mg= 0.5 tab(s), Oral, Daily enalapril 10 mg Tab, 10 mg= 1 tab(s), Oral, Daily glipiZIDE 5 mg ER Tab, 5 mg= 1 tab(s), Oral, Daily Januvia 100 mg Tab, 100 mg= 1 tab(s), Oral, Daily, 1 refills metformin 1000 mg Tab, 1000 mg= 1 tab(s), Oral, BID omeprazole 20 mg Cap-DR, 20 mg= 1 cap(s), Oral, Daily, 1 refills omeprazole 20 mg Cap-DR, 20 mg= 1 cap(s), Oral, Daily pioglitazone 45 mg Tab, 45 mg= 1 tab(s), Oral, Daily, 1 refills simvastatin 20 mg Tab, 20 mg= 1 tab(s), Oral, Daily Allergies No Known Medication Allergies Social History Alcohol Current, Liquor, 1-2 times per month, 10/26/2023 Substance Abuse - Denies Substance Abuse, 10/26/2023 Tobacco Former smoker, quit more than 30 days ago Tobacco Use:. Current vaping or e-cigarette use Smokeless Tobacco Use:. Vaping, 03/18/2024 Family History Diabetes mellitus type 2: Father. Mitral valve disorder: Father. Immunizations Vaccine Date Status Comments pneumococcal 23-valent vaccine 11/07/2021 Record (more content not included)... Normal [facility] Comment on above: Result Comment: Elec tronically Signed By: PASQUALE STERN CNP\.br\Date and Time Signed: 03/18/24 07:59 EDT Provider Letteron 03-18-2024 Provider Letter Provider Letter March 18, 2024 SULTANA JOSHUA [address] [place] [phone] : 1980 To Whom It May Concern, Please excuse above patient from work, Sultana did have an appointment @ 7:20 a.m. this morning with Pasquale Stern NP. Date of Illness: From: _ To: _ May Return to Work On:03-18-24 Restrictions: _ Comments: _ Sincerely, Family Medicine [address] [address] [facility] CHEMISTRYOrdered By: SYSTEM SYSTEM on 02-21-2024 Albumin [Mass/Vol] 4.5 g/dL Normal 3.3 - 5.0 gm/dL R emisol Chem Albumin DL <= 20 mg/L (U) [Mass/Vol] 91.8 mg/dL High 0.0 - 1.9 mg/dL Rem[facility] Chem Albumin/Globulin [Mass ratio] 1.6 {ratio} Normal 1.1 - 2.2 [facility] ALP [Catalytic activity/Vol] 70 [iU]/d Normal 21 - 98 Int._Unit/L [facility] ALT No additional P-5'-P [Catalytic activity/Vol] 97 [iU]/d High 6 - 46 Int._Unit/L [facility] Anion gap [Moles/Vol] 13 mmol/L Normal 6 - 16 mEq/L [facility] AST [Catalytic activity/Vol] 74 [iU]/d High 5 - 43 Int._Unit/L [facility] Bilirubin [Mass/Vol] 0.8 mg/dL Normal 0.0 - 1.1 mg/dL [facility] Calcium [Mass/Vol] 9.3 mg/dL Normal 8.9 - 11.1 mg/dL [facility] Chloride [Moles/Vol] 100 mmol/L Low 101 - 111 mmol/L [facility] Cholesterol [Mass/Vol] 168 mg/dL Normal 120 - 200 mg/dL [facility] Cholesterol in HDL [Mass/Vol] 26 mg/dL Invalid Interpretation Code [facility] Comment on above: Result Comment: '>= 60 LOW RISK' '<= 40 HIGH RISK' Cholesterol in LDL [Mass/Vol] 89 mg/dL Normal <=129mg/dL [facility] Cholesterol in VLDL [Mass/Vol] Unable to Calculate mg/dL Invalid Interpretation Code 7 - 40 mg/dL [facility] Comment on above: Result Comment: 'ELIER BLE TO REPORT. TRIG > 400 mg/dl' CO2 [Moles/Vol] 25 mmol/L Normal 21 - 31 mmol/L Remis ol Chem Creatinine [Mass/Vol] 1.0 mg/dL Normal 0.5 - 1.3 mg/dL [facility] Chem eGFR 95 mL/min/1.73 m2 Normal >=59mL/min /1.73 m2 [facility] Chem Globulin (S) [Mass/Vol] 2.9 g/dL Normal 1.4 - 4.0 gm/dL [facility] Glucose [Mass/Vol] 316 mg/dL High 55 - 199 mg/dL Re misol Chem Potassium [Moles/Vol] 4.3 mmol/L Normal 3.5 - 5.3 mmol/L Remisol Chem Protein [Mass/Vol] 7.4 g/dL Normal 6.0 - 7.8 gm/dL R emisol Chem Protein/Creatinine (U) [Ratio] 152.40 mg/gm Cr Normal 0.00 - 200.00 mg/gm Cr Remisol Chem Sodium [Moles/Vol] 134 mmol/L Low 135 - 145 mmol/L Rem[facility] Chem Triglyceride [Mass/Vol] 466 mg/dL High <=149mg/dL Remisol Chem U Creatinine 80.2 mg/dL Invalid Interpretation Code Remisol Chem Ur Total Protein 122.2 mg/dL Invalid Interpretation Code [facility] Urea nitrogen [Mass/Vol] 16 mg/dL Normal 5 - 21 mg/dL Rem[facility] Chem Urea nitrogen/Creatinine [Mass ratio] 16 mg/mg Normal 10 - 20 [facility] CHEMISTRYOrdered By: Chadwick vasquez on 02-21-2024 HbA1c (Bld) [Mass fraction] 11.5 % High <=5.9% [facility] [place]Auto[place] CMPon 02-21-2024 Albumin [Mass/Vol] 4.5 g/dL Normal 3.3-5.0 [facility] Comment on above: Performed By: #### 2 [id number] #### [facility] [address] [place] [address] Albumin/Globulin (S) [Mass conc ratio] 1.6 Normal 1.1-2.2 [facility] Comment on above: Performed By: #### 2 [id number] #### [facility] [address] [place] [address] ALP [Catalytic activity/Vol] 70 Int._Unit/L Normal 21-98 [facility] Comment on above: Performed By: #### 2 [id number] #### [facility] [address] [place] [address] ALT No additional P-5'-P [Catalytic activity/Vol] 97 Int._Unit/L High 6-46 [facility] Comment on above: Performed By: #### 2 [id number] #### [facility] [address] [place] [address] AST [Catalytic activity/Vol] 74 Int._Unit/L High 5-43 [facility] Comment on above: Performed By: #### 2 [id number] #### [facility] [address] [place] [address] Bilirubin [Mass/Vol] 0.8 mg/dL Normal 0.0-1.1 [facility] Comment on above: Performed By: #### 2 [id number] #### [facility] [address] [place] [address] Globulin (S) [Mass/Vol] 2.9 g/dL Normal 1.4-4.0 [facility] Comment on above: Performed By: #### 2 [id number] #### [facility] [address] [place] [address] Protein [Mass/Vol] 7.4 g/dL Normal 6.0-7.8 [facility] Comment on above: Performed By: #### 2 [id number] #### [facility] [address] [place] [address] Anion gap [Moles/Vol] 13 mmol/L Normal 6-16 [facility] Comment on above: Performed By: #### 2 [id number] #### [facility] [address] [place] [address] Calcium [Mass/Vol] 9.3 mg/dL Normal 8.9-11.1 [facility] Comment on above: Performed By: #### 2 [id number] #### [facility] [address] [place] [address] Chloride [Moles/Vol] 100 mmol/L Low 101-111 [facility] Comment on above: Performed By: #### 2 [id number] #### [facility] [address] [place] [address] CO2 [Moles/Vol] 25 mmol/L Normal 21-31 [facility] Comment on above: Performed By: #### 2 [id number] #### [facility] [address] [place] [address] Creatinine [Mass/Vol] 1.0 mg/dL Normal 0.5-1.3 [facility] Comment on above: Performed By: #### 2 [id number] #### [facility] [address] [place] [address] Glucose [Mass/Vol] 316 mg/dL High 55-199 [facility] Comment on above: Performed By: #### 2 [id number] #### [facility] [address] [place] [address] Potassium [Moles/Vol] 4.3 mmol/L Normal 3.5-5.3 [facility] Comment on above: Performed By: #### 2 [id number] #### [facility] [address] [place] [address] Sodium [Moles/Vol] 134 mmol/L Low 135-145 [facility] Comment on above: Performed By: #### 2 [id number] #### [facility] [address] [place] [address] Urea nitrogen [Mass/Vol] 16 mg/dL Normal 5-21 [facility] Comment on above: Performed By: #### 2 [id number] #### [facility] [address] [place] [address] Urea nitrogen/Creatinine [Mass ratio] 16 No Units Normal 10-20 [facility] Comment on above: Performed By: #### 2 [id number] #### [facility] [address] [place] [address] [id number] 02-21-2024 HbA1c (Bld) [Mass fraction] 11.5 % High <=5.9 [facility] Comment on above: Performed By: #### 7 [id number] #### [facility] [address] [place] [address] Lipid Panelon 02-21-2024 Cholesterol in VLDL [Mass/Vol] UTC Abnormal 7-40 [facility] Comment on above: Result Comment: 'ELIER BLE TO REPORT. TRIG > 400 mg/dl' Result verified by Discern Rule. Performed result UTC (Unable to Calculate) was sent as an Alpha code due the inability to calculate a valid numeric value. Performed By: #### 2 [id number] #### [facility] [address] [place] [address] Cholesterol [Mass/Vol] 168 mg/dL Normal 120-200 [facility] Comment on above: Performed By: #### 2 [id number] #### [facility] [address] [place] [address] Cholesterol in HDL [Mass/Vol] 26 mg/dL Invalid Interpretation Code [facility] Comment on above: Result Comment: '>= 60 LOW RISK' '<= 40 HIGH RISK' Performed By: #### 2 [id number] #### [facility] [address] [place] [address] Cholesterol in LDL [Mass/Vol] 89 mg/dL Normal <=129 [facility] Comment on above: Performed By: #### 2 [id number] #### [facility] [address] [place] [address] Triglyceride [Mass/Vol] 466 mg/dL High <=149 [facility] Comment on above: Performed By: #### 2 [id number] #### [facility] [address] [place] [address] U Microalbon 02-21-2024 Albumin DL <= 20 mg/L (U) [Mass/Vol] 91.8 mg/dL High 0.0-1.9 [facility] Comment on above: Performed By: #### 1 [id number] #### [facility] [address] [place] [address] U Protein/Creat Ratioon Protein/Creatinine (U) [Ratio] 152.40 mg/gm Cr Normal .00-200.00 [facility] Comment on above: Performed By: #### 1 [id number] #### [facility] [address] [place] [address] U Creatinine 80.2 mg/dL Invalid Interpretation Code [facility] Comment on above: Performed By: #### 1 [id number] #### [facility] [address] [place] [address] Ur Total Protein 122.2 mg/dL Invalid Interpretation Code [facility] Comment on above: Performed By: #### 1 [id number] #### [facility] [address] [place] [address] eGFRon 02-21-2024 eGFR 95 mL/min/1.73 m2 Normal >=59 [facility] Comment on above: Order Comment: Order added by Discern Expert. Performed By: #### 1 [id number] #### [facility] [address] [place] [address] Ambulatory Visit Summaryon 0 02-19-2024 Ambulatory Visit Summary SULTANA JOSHUA :1980 Visit Date:02/19/2024 Ambulatory Visit Instructions Your Diagnosis Diabetes HTN (hypertension) Your Care Team Attending Physician - PASQUALE STERN CNP Primary Care Physician - PASQUALE STERN CNP This Is Your Medications List pioglitazone (pioglitazone 45 mg Tab) sitagliptin (Januvia 100 mg Tab) Contact prescribing physician if questions or concerns amlodipine (amLODIPine 10 mg Tab) citalopram (citalopram 20 mg Tab) enalapril (enalapril 2.5 mg Tab) metformin (metformin 1000 mg Tab) mupirocin topical (mupirocin Top 2% Oint) omeprazole (omeprazole 20 mg Cap-DR) simvastatin (simvastatin 20 mg Tab) sulfamethoxazole-tri methoprim (Bactrim 400 mg-80 mg Tab) Procedures Performed Anterior cruciate ligament of knee joint, Photorefractive keratectomy. Discharge Vitals Temperature (Temporal Artery) 36 ?C Heart Rate (Peripheral) 90 Blood Pressure 140/100 Height 185 cm Height 73 in Weight 119.7 kg Weight 263.34 lb BMI 34.97 What to do next Scheduled Follow-Up Appointments 2023 7:00 AM EDT With: Where: [facility] Invalid Interpretation Code [address] [place] [address]- \.br\ You Need to Schedule the Following Appointments\.br \ Follow Up with PASQUALE STERN CNP, FAM When: Within 4 weeks\.br\ Comments:\.br\ HTN\.br\ Where:\.br\ [address] [facility]\.br\ [place] [address]\.br\ Business (1)\.br\ \.br\ You Need to Complete the Following\.br\ Comprehensive Metabolic Panel, Blood, Routine collect, 02/19/24, Order for future visit, Lab Collect, Diabetes [facility] Family Medicine Office/Clini c Noteon 02-19-2024 Family Medicine Office/Clinic Note Chief Complaint Patient in office for med concerns. Needs refills from previous doc & ins is denying actose & genuvia. HPI Staff Sultana is a 43 year old male presenting for Onset: Patients foreskin is tearing on penis History of Present Illness Patient presents today in f/u for known diabetes, HTN, and an area on his penis that is tearing . Patient reports he has not had his diabetes medication for two months now. He reports he is only taking the metformin. He reports his insurance has been denying the medication refills when they are sent to mail order. He reports he has increased urination and thrist. He states he has an area on his penis at the base of the head that when he experiences an erection the area tears open and bleed. He denies burning with urination or hesitancy. Patient denies dizziness, headache, vision changes, chest pain, shortness of breath, or heart palpitations. His blood pressure is elevated today at 140/100. He denies missing any doses of his blood pressure medication. Review of Systems PHQ Score Initial Depression Screen Score: 0 SCORE Physical Exam Vitals & Measurements T: 36 ?C(Temporal Artery) HR: 90(Peripheral) BP: 140/100 SpO2: 98% HT: 73 in HT: 185 cm WT: 119.7 kg WT: 263.34 lb BMI: 34.97 General: alert, no acute distress Skin: warm, dry, posterior head of penis erythematous with a small cut at the base Head: no trauma, normocephalic Neck: Trachea midline, no adenopathy, no tenderness Eye: normal conjunctiva, sclera clear Cardiovascular: regular rate and rhythm, normal peripheral perfusion Respiratory: Lungs CTA, respirations non labored Extremities: no deformity, no trauma Neurological: oriented x 4, LOC appropriate for agespeech normal Psychiatric: cooperative, affect appropriate for age, normal judgement, normal psychiatric thoughts. Assessment/Plan 1. Diabetes (E11.9: Type 2 diabetes mellitus without complications) Uncontrolled Januvia 100 mg one tablet po daily -refilled today pioglitazone 45 mg one tablet po daily refilled today Encouraged daily exercise and low carb diet f/u in 4 weeks Ordered: Comprehensive Metabolic Panel HgbA1c Microalbumin Level Urine U Protein/Creat Ratio 2. HTN (hypertension) (I10: Essential (primary) hypertension) Uncontrolled Encouraged low sodium diet & daily exercise Continue amlodipine 10 mg one tablet po daily Increase enalapril 5 mg one tablet po daily f/u in 4 weeks Ordered: enalapril, 5 mg = 1 tab(s), Oral, Daily, # 30 tab(s), Refills(s) 0, Pharmacy: [facility], 185, cm, 02/19/24 7:35:00 EDT, Height/Length Dosing, 119.7, kg, 02/19/24 7:35:00 EDT, Weight Dosing Comprehensive Metabolic Panel Lipid Panel 3. Yeast infection (B37.9: Candidiasis, unspecified) Ordered: fluconazole, 100 mg = 1 tab(s), Oral, Daily, X 7 day(s), # 7 tab(s), Refills(s) 0, Pharmacy: [facility], 185, cm, 02/19/24 7:35:00 EDT, Height/Length Dosing, 119.7, kg, 02/19/24 7:35:00 EDT, Weight Dosing Orders: pioglitazone, 45 mg = 1 tab(s), Oral, Daily, # 90 tab(s), Refills(s) 1, Pharmacy: [facility], 185, cm, 02/19/24 7:35:00 EDT, Height/Length Dosing, 119.7, kg, 02/19/24 7:35:00 EDT, Weight Dosing sitagliptin, 100 mg = 1 tab(s), Oral, Daily, # 90 tab(s), Refills(s) 1, Pharmacy: [facility], 185, cm, 02/19/24 7:35:00 EDT, Height/Length Dosing, 119.7, kg, 02/19/24 7:35:00 EDT, Weight Dosing Total time spent preparing the chart, conducting of the encounter with the patient and family and time spent documenting, reviewing, and ordering tests was 30 minutes. Follow-up With When Contact Information PASQUALE STERN CNP, FAM Within [address] [place] [phone] Business (1) Additional Instructions: HTN Patient Education Genital Yeast Infection, Male Hypertension, Adult, Qdpj-xc-Apyi Problem List/Past Medical History Ongoing Abscess of left external cheek BMI 35.0-35.9,adult Depression Diabetes HTN (hypertension) Hyperlipidemia Obesity due to excess calories Historical No qualifying data Procedure/Surgical History Anterior cruciate ligament of knee joint, Photorefractive keratectomy. Medications amLODIPine 10 mg Tab, 10 mg= 1 tab(s), Oral, Daily Bactrim 400 mg-80 mg Tab citalopram 20 mg Tab, 10 mg= 0.5 tab(s), Oral, Daily enalapril 2.5 mg Tab, 2.5 mg= 1 tab(s), Oral, Daily enalapril 5 mg Tab, 5 mg= 1 tab(s), Oral, Daily fluconazole 100 mg Tab, 100 mg= 1 tab(s), Oral, Daily Januvia 100 mg Tab, 100 mg= 1 tab(s), Oral, Daily, 1 refills metformin 1000 mg Tab, 1000 mg= 1 tab(s), Oral, BID mupirocin Top 2% Oint omeprazole 20 mg Cap-DR, 20 mg= 1 cap(s), Oral, Daily pioglitazone 45 mg Tab, 45 mg= 1 tab(s), Oral, Daily, 1 refills simvastatin 20 mg Tab, 20 mg= 1 tab(s), Oral, Daily Allergies No Known Medication Allergies Social History Alcohol Current, Liquor, 1-2 times per month, 10/26/2023 [facility] [[email or web address]] (more content not included)... Normal [facility] Comment on above: Result Comment: Elec tronically Signed By: PASQUALE STERN CNP\.br\Date and Time Signed: 02/19/24 09:03 EDT Patient Educationon 02-19-20 Patient Education Cardiovascular Hypertension, Adult Hypertension is another name for high blood pressure. High blood pressure forces your heart to work harder to pump blood. This can cause problems over time. There are two numbers in a blood pressure reading. There is a top number (systolic) over a bottom number (diastolic). It is best to have a blood pressure that is below 120/80. What are the causes? The cause of this condition is not known. Some other conditions can lead to high blood pressure. What increases the risk? Some lifestyle factors can make you more likely to develop high blood pressure: ? Smoking. ? Not getting enough exercise or physical activity. ? Being overweight. ? Having too much fat, sugar, calories, or salt (sodium) in your diet. ? Drinking too much alcohol. Other risk factors include: ? Having any of these conditions: ? Heart disease. ? Diabetes. ? High cholesterol. ? Kidney disease. ? Obstructive sleep apnea. ? Having a family history of high blood pressure and high cholesterol. ? Age. The risk increases with age. ? Stress. What are the signs or symptoms? High blood pressure may not cause symptoms. Very high blood pressure (hypertensive crisis) may cause: ? Headache. ? Fast or uneven heartbeats (palpitations). ? Shortness of breath. ? Nosebleed. ? Vomiting or feeling like you may vomit (nauseous). ? Changes in how you see. ? Very bad chest pain. ? Feeling dizzy. ? Seizures. How is this treated? ? This condition is treated by making healthy lifestyle changes, such as: ? Eating healthy foods. ? Exercising more. ? Drinking less alcohol. ? Your doctor may prescribe medicine if lifestyle changes do not help enough and if: ? Your top number is above 130. ? Your bottom number is above 80. ? Your personal target blood pressure may vary. Follow these instructions at home: Eating and drinking ? If told, follow the DASH eating plan. To follow this plan: ? Fill one half of your plate at each meal with fruits and vegetables. ? Fill one fourth of your plate at each meal with whole grains. Whole grains include whole-wheat pasta, brown rice, and whole-grain bread. ? Eat or drink low-fat dairy products, such as skim milk or low-fat yogurt. ? Fill one fourth of your plate at each meal with low-fat (lean) proteins. Low-fat proteins include fish, chicken without skin, eggs, beans, and tofu. ? Avoid fatty meat, cured and processed meat, or chicken with skin. ? Avoid pre-made or processed food. ? Limit the amount of salt in your diet to less than 1,500 mg each day. ? Do not drink alcohol if: ? Your doctor tells you not to drink. ? You are , may be , or are planning to become . ? If you drink alcohol: ? Limit how much you have to: ? 0?1 drink a day for women. ? 0?2 drinks a day for men. ? Know how much alcohol is in your drink. In the [place] one drink equals one 12 oz bottle of beer (355 mL), one 5 oz glass of wine (148 mL), or one 1? oz glass of hard liquor (44 mL). Lifestyle ? Work with your doctor to stay at a healthy weight or to lose weight. Ask your doctor what the best weight is for you. ? Get at least 30 minutes of exercise that causes your heart to beat faster (aerobic exercise) most days of the week. This may include walking, swimming, or biking. ? Get at least 30 minutes of exercise that strengthens your muscles (resistance exercise) at least 3 days a week. This may include lifting weights or doing Pilates. ? Do not smoke or use any products that contain nicotine or tobacco. If you need help quitting, ask your doctor. ? Check your blood pressure at home as told by your doctor. ? Keep all follow-up visits. Medicines ? Take yhkf-[id number] and prescription medicines only as told by your doctor. Follow directions carefully. ? Do not skip doses of blood pressure medicine. The medicine does not work as well if you skip doses. Skipping doses also puts you at risk for problems. ? Ask your doctor about side effects or reactions to medicines that you should watch for. Contact a doctor if: ? You think you are having a reaction to the medicine you are taking. ? You have headaches that keep coming back. ? You feel dizzy. ? You have swelling in your ankles. ? You have trouble with your vision. Get help right away if: ? You get a very bad headache. ? You start to feel mixed up (confused). ? You feel weak or numb. ? You feel faint. ? You have very bad pain in your: ? Chest. ? Belly (abdomen). ? You vomit more than once. ? You have trouble breathing. These symptoms may be an emergency. Get help right away. Call 911. ? Do not wait to see if the symptoms will go away. ? Do not drive yourself to the hospital. Summary ? Hypertension is another name for high blood pressure. ? High blood pressure forces your heart to work harder to pump blood. ? For m (more content not included)... Normal [facility] Provider Letteron 02-19-2024 Provider Letter February 19, 2024 SULTANA JOSHUA [address] [place] [id number] : 1980 To Whom It May Concern, Please excuse above patient from work Sultana does have appt. @ 7:00 a.m. on February Date of Illness: From: _ To: _ May Return to Work On:02-21-24 Restrictions: _NONE Comments: _ Sincerely, [place] [address] [facility] Provider Letter February 19, 2024 SULTANA JOSHUA [address] [id number] : 1980 To Whom It May Concern, Please excuse above patient from work, Sultana had an appt this morning at 7:40 a.m. Date of Illness: From: _ To: _ May Return to Work On:02-19-24 Restrictions: _NONE Comments: _ Sincerely, [place] [address] [facility] Ambulatory Visit Summaryon 0 11-30-2023 Ambulatory Visit Summary SULTANA JOSHUA :1980 Visit Date:11/30/2023 Ambulatory Visit Instructions Your Diagnosis Abscess of left external cheek Your Care Team Attending Physician - Rajat Zeng MD Primary Care Physician - PASQUALE STERN CNP This Is Your Medications List amlodipine (amLODIPine 10 mg Tab) cephalexin (cephalexin 500 mg Cap) citalopram (citalopram 20 mg Tab) enalapril (enalapril 2.5 mg Tab) metformin (metformin 1000 mg Tab) mupirocin topical (mupirocin Top 2% Oint) omeprazole (omeprazole 20 mg Cap-DR) pioglitazone (pioglitazone 45 mg Tab) simvastatin (simvastatin 20 mg Tab) sitagliptin (Januvia 100 mg Tab) sulfamethoxazole-tri methoprim (Bactrim 400 mg-80 mg Tab) Procedures Performed Anterior cruciate ligament of knee joint, Photorefractive keratectomy. Discharge Vitals Heart Rate (Peripheral) 86 Respiratory Rate 16 Blood Pressure 149/95 Height 74 in Height 188 cm Weight 275.22 lb Weight 125.1 kg BMI 35.39 Medications What How Much When Instructions Unchanged amlodipine (amLODIPine 10 mg Tab) 1 Tablets By Mouth Every day Unchanged cephalexin (cephalexin 500 mg Cap) Unchanged citalopram (citalopram 20 mg Tab) 0.5 Tablets By Mouth Every day Unchanged enalapril (enalapril 2.5 mg Tab) 1 Tablets By Mouth Every day Unchanged metformin (metformin 1000 mg Tab) 1 Tablets By Mouth 2 times a day Unchanged mupirocin topical (mupirocin Top 2% Oint) Unchanged omeprazole (omeprazole 20 mg Cap-DR) 1 Capsules By Mouth Every day before breakfast Unchanged pioglitazone (pioglitazone 45 mg Tab) 1 Tablets By Mouth Every day Unchanged simvastatin (simvastatin 20 mg Tab) 1 Tablets By Mouth Every day Unchanged sitagliptin (Januvia 100 mg Tab) 1 Tablets By Mouth Every day Unchanged sulfamethoxazole-tri methoprim (Bactrim 400 mg-80 mg Tab) Allergies No Known Medication Allergies Problems Ongoing - Any problem that you are currently receiving treatment for. Abscess of left external cheek BMI 35.0-35.9,adult Depression Diabetes HTN (hypertension) Hyperlipidemia Obesity due to excess calories Patient Survey You may receive a survey via text or e-mail asking about your office visit. Please share your experience with us by completing your survey. We appreciate your feedback and thank you for choosing us for your care. Normal [facility] General Surgery Office/Clini c Noteon 11-30-2023 General Surgery Office/Clinic Note Chief Complaint 1 month follow up HPI Staff Sultana is a 43 y.o. male here for 1 month follow up I&D of left sided cheek done in office on 10/26/2023 History of Present Illness Sultana Joshua is a 43-year-old male who presents for a 1-month wound check following I&D of left cheek abscess. Review of Systems PHQ Score Initial Depression Screen Score: 0 SCORE Constitutional: No fever, no sweats, no weight loss. Eyes: No glasses, no blurred vision, no visual loss. ENMT: No dentures, no hoarseness, no swallowing difficulties, no hearing loss, no ear infection(s), no nose bleeds. Cardiovascular: Normal blood pressure, no chest pain, regular heartbeat, no heart murmur. Respiratory: No shortness of breath, no cough, no wheezing, no asthma. Gastrointestinal: No nausea, no vomiting, no diarrhea, no constipation, no blood in stool, no change in bowel habits, no abdominal pain, no hepatitis. Genitourinary: No kidney stones, no urine infection, no difficulty passing urine. Musculoskeletal: No pain, no weakness. Skin: No changing moles, no rash, no skin lumps. Neurologic: No seizures, no epilepsy, no headache. Psychiatric: No emotional, no psychiatric problem. Endocrine: No thyroid, no diabetes. Heme/Lymph: No bleeding problems, no anemia, no blood clots, no transfusions. Allergy/Immunologic: No swollen lymph nodes/glands, no IV drug abuse. Other: Additional ROS info: Except as noted in the above Review of Systems and in the History of Present Illness, all other systems have been reviewed and are negative or noncontributory. Physical Exam Vitals & Measurements HR: 86(Peripheral) RR: 16 BP: 149/95 HT: 74 in HT: 188 cm WT: 125.1 kg WT: 275.22 lb BMI: 35.39 General: No acute distress Respiratory: Unlabored breathing on room air Cardiac: Regular rate and rhythm Abdomen: Soft nontender nondistended Skin: Abscess is completely resolved. There is no fluctuance or erythema surrounding. Assessment/Plan 1. Abscess of left external cheek (L02.01: Cutaneous abscess of face) He may follow up with us as needed. Portions of this record may have been created with voice recognition artificial intelligence software, specifically [employer], [email or web address] and or [employer]. Substitutions may have occurred voice recognition and artificial intelligence software. Documentation services were performed after patient or guardian consented to allow [employer] to record this visit. ABBY legal service specialist and provider reviewed before signing. ABBY: Gillian Hernandez Follow-up No qualifying data available Problem List/Past Medical History Ongoing Abscess of left external cheek BMI 35.0-35.9,adult Depression Diabetes HTN (hypertension) Hyperlipidemia Obesity due to excess calories Historical No qualifying data Procedure/Surgical History Anterior cruciate ligament of knee joint, Photorefractive keratectomy. Medications amLODIPine 10 mg Tab, 10 mg= 1 tab(s), Oral, Daily Bactrim 400 mg-80 mg Tab cephalexin 500 mg Cap citalopram 20 mg Tab, 10 mg= 0.5 tab(s), Oral, Daily enalapril 2.5 mg Tab, 2.5 mg= 1 tab(s), Oral, Daily Januvia 100 mg Tab, 100 mg= 1 tab(s), Oral, Daily metformin 1000 mg Tab, 1000 mg= 1 tab(s), Oral, BID mupirocin Top 2% Oint omeprazole 20 mg Cap-DR, 20 mg= 1 cap(s), Oral, Daily pioglitazone 45 mg Tab, 45 mg= 1 tab(s), Oral, Daily simvastatin 20 mg Tab, 20 mg= 1 tab(s), Oral, Daily Allergies No Known Medication Allergies Social History Alcohol Current, Liquor, 1-2 times per month, 10/26/2023 Substance Abuse - Denies Substance Abuse, 10/26/2023 Tobacco 10 or more cigarettes (1/2 pack or more)/day in last 30 days, 2 packs a day Tobacco Use:. Never Smokeless Tobacco Use:. Cigarettes, 11/30/2023 Family History Diabetes mellitus type 2: Father. Mitral valve disorder: Father. Immunizations Vaccine Date Status Comments pneumococcal 23-valent vaccine 11/07/2021 Recorded 2023-10-26: VIS DATE: 07/16/2019 [facility] Comment on above: Result Comment: Elec tronically Signed By: Rajat Zeng MD\.br\Date and Time Signed: 11/30/23 12:04 EDT\.br\Electronically Co-Signed By: Gillian Hernandez.br\Date and Time Co-Signed: 11/30/23 10:10 EDT General Surgery Office/Clini c Noteon 11-05-2023 General Surgery Office/Clinic Note HPI Staff Sultana is a 42 y.o. male here for 1 week follow up wound check patient last seen 10/26/2023 with abscess on neck This was I/D in office History of Present Illness Sultana Joshua is a 42-year-old male status post I&D of a left-sided cheek abscess that erosed from an ingrown hair that he states he had been picking. He has been doing well. Erythema and induration have improved. The patient is concerned that there is still a somewhat firm area near the I&D site. Review of Systems Constitutional: No fever, no sweats, no weight loss. Eyes: No glasses, no blurred vision, no visual loss. ENMT: No dentures, no hoarseness, no swallowing difficulties, no hearing loss, no ear infection(s), no nose bleeds. Cardiovascular: Normal blood pressure, no chest pain, regular heartbeat, no heart murmur. Respiratory: No shortness of breath, no cough, no wheezing, no asthma. Gastrointestinal: No nausea, no vomiting, no diarrhea, no constipation, no blood in stool, no change in bowel habits, no abdominal pain, no hepatitis. Genitourinary: No kidney stones, no urine infection, no difficulty passing urine. Musculoskeletal: No pain, no weakness. Skin: No changing moles, no rash, no skin lumps. Neurologic: No seizures, no epilepsy, no headache. Psychiatric: No emotional, no psychiatric problem. Endocrine: No thyroid, no diabetes. Heme/Lymph: No bleeding problems, no anemia, no blood clots, no transfusions. Allergy/Immunologic: No swollen lymph nodes/glands, no IV drug abuse. Other: Additional ROS info: Except as noted in the above Review of Systems and in the History of Present Illness, all other systems have been reviewed and are negative or noncontributory. Physical Exam General: No acute distress Respiratory: Unlabored breathing on room air Cardiac: Regular rate and rhythm Abdomen: Soft nontender nondistended Skin: On examination with a Q-tip, it is free of purulent drainage or fluid and appears to be healing well. Assessment/Plan 1. Abscess of left external cheek (L02.01: Cutaneous abscess of face) We will have the patient follow up with us in 1 month for a final wound check. Portions of this record may have been created with voice recognition artificial intelligence software, specifically [employer], [email or web address] and or [employer]. Substitutions may have occurred voice recognition and artificial intelligence software. Documentation services were performed after patient or guardian consented to allow [employer] to record this visit. ABBY legal service specialist and provider reviewed before signing. ABBY: Gillian Hernandez Follow-up No qualifying data available Problem List/Past Medical History Ongoing Abscess of left external cheek BMI 35.0-35.9,adult Depression Diabetes HTN (hypertension) Hyperlipidemia Obesity due to excess calories Historical No qualifying data Procedure/Surgical History Anterior cruciate ligament of knee joint, Photorefractive keratectomy. Medications amLODIPine 10 mg Tab, 10 mg= 1 tab(s), Oral, Daily Bactrim 400 mg-80 mg Tab cephalexin 500 mg Cap citalopram 20 mg Tab, 10 mg= 0.5 tab(s), Oral, Daily enalapril 2.5 mg Tab, 2.5 mg= 1 tab(s), Oral, Daily Januvia 100 mg Tab, 100 mg= 1 tab(s), Oral, Daily metformin 1000 mg Tab, 1000 mg= 1 tab(s), Oral, BID mupirocin Top 2% Oint omeprazole 20 mg Cap-DR, 20 mg= 1 cap(s), Oral, Daily pioglitazone 45 mg Tab, 45 mg= 1 tab(s), Oral, Daily simvastatin 20 mg Tab, 20 mg= 1 tab(s), Oral, Daily Allergies No Known Medication Allergies Social History Alcohol Current, Liquor, 1-2 times per month, 10/26/2023 Substance Abuse - Denies Substance Abuse, 10/26/2023 Tobacco 2 packs a day Tobacco Use:., 10/26/2023 Family History Diabetes mellitus type 2: Father. Mitral valve disorder: Father. Immunizations Vaccine Date Status Comments pneumococcal 23-valent vaccine 11/07/2021 Recorded 2023-10-26: VIS DATE: 07/16/2019 [facility] Comment on above: Result Comment: Elec tronically Signed By: Rajat Zeng MD\.br\Date and Time Signed: 11/05/23 15:39 EST\.br\Electronically Co-Signed By: Gillian Hernandez\.br\Date and Time Co-Signed: 11/02/23 09:39 EST Ambulatory Visit Summaryon 0 11-02-2023 Ambulatory Visit Summary SULTANA JOSHUA :1980 Visit Date:11/02/2023 Ambulatory Visit Instructions Your Diagnosis Abscess of left external cheek Your Care Team Attending Physician - Rajat Zeng MD Primary Care Physician - PASQUALE STERN CNP This Is Your Medications List amlodipine (amLODIPine 10 mg Tab) cephalexin (cephalexin 500 mg Cap) citalopram (citalopram 20 mg Tab) enalapril (enalapril 2.5 mg Tab) metformin (metformin 1000 mg Tab) mupirocin topical (mupirocin Top 2% Oint) omeprazole (omeprazole 20 mg Cap-DR) pioglitazone (pioglitazone 45 mg Tab) simvastatin (simvastatin 20 mg Tab) sitagliptin (Januvia 100 mg Tab) sulfamethoxazole-tri methoprim (Bactrim 400 mg-80 mg Tab) Procedures Performed Anterior cruciate ligament of knee joint, Photorefractive keratectomy. What to do next Scheduled Follow-Up Appointments Sunday 8:40 AM EDT With: Rajat Zeng MD Where: [facility] General Surgery [facility] Provider Letteron 11-02-2023 Provider Letter November 02, 2023 SULTANA JOSHUA [address] [place] [id number] : 1980 To Whom It May Concern, Please excuse above patient from work. 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 male here for abscess on neck Patient was seen at [facility] on 10/21/2023 Bedside US done showing multiple small fluid collections for carbuncle formation on the left jawline per ER report Lesion of lower leg excision 12/26/2017. History of Present Illness Sultana Joshua is a 42-year-old male with a history of left cheek/mandible soft tissue abscess present for the past couple of weeks. A trial of antibiotics failed. Ultrasound showed fluid collection. Review of Systems PHQ Score Initial Depression Screen Score: 0 SCORE ROS - Constitutional: No fever, no sweats, no weight loss. Eyes: No glasses, no blurred vision, no visual loss. ENMT: No dentures, no hoarseness, no swallowing difficulties, no hearing loss, no ear infection(s), no nose bleeds. Cardiovascular: Normal blood pressure, no chest pain, regular heartbeat, no heart murmur. Respiratory: No shortness of breath, no cough, no wheezing, no asthma. Gastrointestinal: No nausea, no vomiting, no diarrhea, no constipation, no blood in stool, no change in bowel habits, no abdominal pain, no hepatitis. Genitourinary: No kidney stones, no urine infection, no difficulty passing urine. Musculoskeletal: No pain, no weakness. Skin: No changing moles, no rash, no skin lumps. Neurologic: No seizures, no epilepsy, no headache. Psychiatric: No emotional, no psychiatric problem. Endocrine: No thyroid, no diabetes. Heme/Lymph: No bleeding problems, no anemia, no blood clots, no transfusions. Allergy/Immunologic: No swollen lymph nodes/glands, no IV drug abuse. Other: Additional ROS info: Except as noted in the above Review of Systems and in the History of Present Illness, all other systems have been reviewed and are negative or noncontributory. Physical Exam Vitals & Measurements HR: 88(Peripheral) RR: 18 BP: 142/98 HT: 74 in HT: 188 cm WT: 125.1 kg WT: 275.22 lb BMI: 35.39 General: No acute distress Respiratory: Unlabored breathing on room air Cardiac: Regular rate and rhythm Abdomen: Soft nontender nondistended Skin: There is a 4 cm abscess in the skin overlying the left mandible. Procedure After obtaining informed consent, the patient was positioned supine on the procedure room table, then transferred to the right lateral decubitus position to expose the area of concern. The skin was prepped and draped in a sterile fashion, anesthetized using lidocaine using a 5 mm punch biopsy device. A hole was made in opening the cavity. A moderate amount of superior sanguinous fluid was expressed from the cavity, which was then irrigated thoroughly and then packed using quarter inch Nu Gauze. A clean dressing was applied. Assessment/Plan 1. Abscess of left external cheek (L02.01: Cutaneous abscess of face) The patient will follow up with us in 1 week. He will continue antibiotic therapy as directed by outside hospital. 2. BMI 35.0-35.9,adult (Z68.35: Body mass index [BMI] 35.0-35.9, adult) 3. Obesity due to excess calories (E66.09: Other obesity due to excess calories) Total time spent preparing the chart, conducting of the encounter with the patient and family, and time spent documenting, reviewing, and ordering tests was 45 minutes. Portions of this record may have been created with voice recognition artificial intelligence software, specifically [employer], [email or web address] and or [employer]. Substitutions may have occurred due to the inherent limitations of voice recognition and artificial intelligence software. Documentation services were performed after patient or guardian consented to allow [employer]KO System to record this visit. ABBY legal service specialist and provider reviewed before signing. ABBY: YPlan Follow-up No qualifying data available Patient Education Obesity, Adult Problem List/Past Medical History Ongoing Abscess of left external cheek BMI 35.0-35.9,adult Depression Diabetes HTN (hypertension) Hyperlipidemia Obesity due to excess calories Historical No qualifying data Procedure/Surgical History Anterior cruciate ligament of knee joint, Photorefractive keratectomy. Medications amLODIPine 10 mg Tab, 10 mg= 1 tab(s), Oral, Daily Bactrim 400 mg-80 mg Tab cephalexin 500 mg Cap citalopram 20 mg Tab, 10 mg= 0.5 tab(s), Oral, Daily enalapril 2.5 mg Tab, 2.5 mg= 1 tab(s), Oral, Daily Januvia 100 mg Tab, 100 mg= 1 tab(s), Oral, Daily metformin 1000 mg Tab, 1000 mg= 1 tab(s), Oral, BID mupirocin Top 2% Oint omeprazole 20 mg Cap-DR, 20 mg= 1 cap(s), Oral, Daily pioglitazone 45 mg Tab, 45 mg= 1 tab(s), Oral, Daily simvastatin 20 mg Tab, 20 mg= 1 tab(s), Oral, Daily Allergies No Known Medication Allergies Social History Alcohol Current, Liquor, 1-2 times per month, 10/26/2023 Substance Abuse - Denies Substance Abuse, 10/26/2023 Tobacco 2 packs a day Tobacco Use:., 10/26/2023 Family History Diabetes mellitus type (more content not included)... [facility] Comment on above: Result Comment: Elec tronically Signed By: Rajat Zeng MD\.br\Date and Time Signed: 10/29/23 08:41 EST\.br\Electronically Co-Signed By: Giovanna Sewell\.br\Date and Time Co-Signed: 10/26/23 11:30 EST Ambulatory Visit Summaryon 0 10-26-2023 Ambulatory Visit Summary SULTANA JOSHUA :1980 Visit Date:10/26/2023 Ambulatory Visit Instructions Your Diagnosis Abscess Encounter to establish care BMI 35.0-35.9,adult Your Care Team Attending Physician - PASQUALE STERN CNP Primary Care Physician - PASQUALE STERN CNP This Is Your Medications List amlodipine (amLODIPine 10 mg Tab) cephalexin (cephalexin 500 mg Cap) citalopram (citalopram 20 mg Tab) enalapril (enalapril 2.5 mg Tab) metformin (metformin 1000 mg Tab) mupirocin topical (mupirocin Top 2% Oint) omeprazole (omeprazole 20 mg Cap-DR) pioglitazone (pioglitazone 45 mg Tab) simvastatin (simvastatin 20 mg Tab) sitagliptin (Januvia 100 mg Tab) sulfamethoxazole-tri methoprim (Bactrim 400 mg-80 mg Tab) Procedures Performed Anterior cruciate ligament of knee joint, Photorefractive keratectomy. Discharge Vitals Heart Rate (Peripheral) 90 Blood Pressure 180/100 Height 74 in Height 188 cm Weight 275.66 lb Weight 125.3 kg BMI 35.45 What to do next Scheduled Follow-Up Appointments Sunday 10:20 AM EST With: Rajat Zeng MD Where: [facility] General Surgery [facility] Family Medicine Office/Clini c Noteon 10-26-2023 Family Medicine Office/Clinic Note Chief Complaint ED follow up and Establish care HPI Staff Establish Care: History: Any previous diagnosis: DM, HTN History of seeing any specialist: n/a When was your last doctors visit: unknown Last provider: Monica Durán Any recent labs: Last August in [facility] UTD: Colonoscopy: no Acute: Current issues/complaints: ER followup: Hospital: [facility] Visit date:10/20/2023 Symptoms the patient presented with: abscess on face Current concerns: is getting worse even with ATB Cephalexin 500 mg qid and sulfamethoxazole-TMP DS bid, mupirocin History of Present Illness 42 year old male patient presents today to establish care with this provider and to f/u on his most recent ED visit. He has a history of HTN, Diabetes, & Hyperlipidemia. He was seen at the [facility] Ed for the abscesses on the left side of his neck on 10/20/2023. He reports they gave him two oral ATB's and mupirocin topical for the area. He states they wanted him to make an appointment with Dr. Orourke, general surgery in [place] but told him to come to a pcp first for the referral. He states they did an US of his neck and determined there were 3-4 pockets that would need to be removed so the ED doctor chose not to jerry the abscesses. He states the area seems to be getting worse instead of better. He states he has been using warm compress to the area and this has not helped. He reports his last HgbA1C was 6.7% when he saw Van Durán in the fall. He does not check his blood sugar. his blood pressure is elevated today in the office at 180/100. He reports he has taken his medication before coming today, smoked some cigarettes, and drank some coffee. He denies dizziness, headache, vision changes, chest pain, or heart palpitations. Review of Systems PHQ Score Initial Depression Screen Score: 0 SCORE Constitutional: no fever, no chills, no sweats, no weakness Skin: no Jaundice, no rash, moderate lesions, nopetechiae ENMT: no ear pain, no sore throat, no congestion, no hoarseness Respiratory: no shortness of breath, no cough, no orthopnea, no wheezing Cardiovascular: no chest pain, no palpitations, no edema Gastrointestinal: no nausea, no vomiting, no diarrhea, no GI bleeding Genitourinary: no dysuria, no hematuria, no discharge, no pain Musculoskeletal: no back pain, no trauma Neurologic: no headache, no dizziness, no numbness, no weakness Psychiatric: no sleeping problems, no irritability, no mood swings/depression. Heme/Lymph: no bleeding tendency, no bruising tendency, no petechiae, no swollen nodes Allergy/Immunologic: no seasonal allergies, no food allergies, no recurrent infections, no impaired immunity Additional ROS info: Except as noted in the above Review of Systems and in the History of Present Illness all other systems have been reviewed and are negative or noncontributory. Physical Exam Vitals & Measurements HR: 90(Peripheral) BP: 180/100 SpO2: 97% HT: 74 in HT: 188 cm WT: 125.3 kg WT: 275.66 lb BMI: 35.45 General: alert, no acute distress Skin: warm, dry; left neck- 4 small erythematous, hard tender nodules below left ear Head: no trauma, normocephalic Neck: Trachea midline, no adenopathy, no tenderness Eye: normal conjunctiva, sclera clear ENMT: TM's clear, oral mucosa moist, no pharyngeal erythema or exudate Cardiovascular: regular rate and rhythm, normal peripheral perfusion Respiratory: Lungs CTA, respirations non labored Chest wall: no deformity. Gastrointestinal: soft, non distended, no tenderness, no guarding. Back: No tenderness, Normal ROM, Normal alignment. Extremities: no deformity, no trauma Neurological: oriented x 4, LOC appropriate for age, CN II-XII intact, motor strength equal & normal bilaterally, sensation equal & normal bilaterally, speech normal Psychiatric: cooperative, affect appropriate for age, normal judgement, normal psychiatric thoughts. Assessment/Plan 1. Abscess (L02.91: Cutaneous abscess, unspecified) Continue cephalexin 500 mg one tablet QID & Bactrim DS one tablet BID Continue with warm compresses to the area Awaiting report from [facility] ED Appointment today at 10 AM with [place] [facility] [facility] Ambulatory Referral 2. Encounter to establish care (Z76.89: Persons encountering health services in other specified circumstances) Patient will need to f/u for HTN, Diabetes, & Hyperlipidemia in 2-4 weeks 3. BMI 35.0-35.9,adult (Z68.35: Body mass index [BMI] 35.0-35.9, adult) The standard range for ages 18 and older is >=18.5 and < 25 kg/m2. Your BMI today was above this range, this falls in the overweight to obese category and there are medical benefits to weight loss. We can offer counselling, referral, and/or medical support in addressing this problem. Your BMI and weight management will be followed at subsequent visits. Follow-up With When Contact Information PASQUALE STERN CNP, FAM Within 2 to 4 weeks [address] [place], [place] 43 (more content not included)... Normal [facility] Comment on above: Result Comment: Elec tronically Signed By: PASQUALE STERN CNP\.br\Date and Time Signed: 10/26/23 10:55 EST Patient Educationon 10-26-19 Patient Education Gastroenterology Obesity, Adult Obesity is the condition of having too much total body fat. Being overweight or obese means that your weight is greater than what is considered healthy for your body size. Obesity is determined by a measurement called BMI (body mass index). BMI is an estimate of body fat and is calculated from height and weight. For adults, a BMI of 30 or higher is considered obese. Obesity can lead to other health concerns and major illnesses, including: ? Stroke. ? Coronary artery disease (CAD). ? Type 2 diabetes. ? Some types of cancer, including cancers of the colon, breast, uterus, and gallbladder. ? High blood pressure (hypertension). ? High cholesterol. ? Gallbladder stones. Obesity can also contribute to: ? Osteoarthritis. ? Sleep apnea. ? Infertility problems. What are the causes? Common causes of this condition include: ? Eating daily meals that are high in calories, sugar, and fat. ? Drinking high amounts of sugar-sweetened beverages, such as soft drinks. ? Being born with genes that may make you more likely to become obese. ? Having a medical condition that causes obesity, including: ? Hypothyroidism. ? Polycystic ovarian syndrome (PCOS). ? Binge-eating disorder. ? Camilo syndrome. ? Taking certain medicines, such as steroids, antidepressants, and seizure medicines. ? Not being physically active (sedentary lifestyle). ? Not getting enough sleep. What increases the risk? The following factors may make you more likely to develop this condition: ? Having a family history of obesity. ? Living in an area with limited access to: ? [place], recreation centers, or sidewalks. ? Healthy food choices, such as grocery stores and farmers' markets. What are the signs or symptoms? The main sign of this condition is having too much body fat. How is this diagnosed? This condition is diagnosed based on: ? Your BMI. If you are an adult with a BMI of 30 or higher, you are considered obese. ? Your waist circumference. This measures the distance around your waistline. ? Your skinfold thickness. Your health care provider may gently pinch a fold of your skin and measure it. You may have other tests to check for underlying conditions. How is this treated? Treatment for this condition often includes changing your lifestyle. Treatment may include some or all of the following: ? Dietary changes. This may include developing a healthy meal plan. ? Regular physical activity. This may include activity that causes your heart to beat faster (aerobic exercise) and strength training. Work with your health care provider to design an exercise program that works for you. ? Medicine to help you lose weight if you are unable to lose one pound a week after six weeks of healthy eating and more physical activity. ? Treating conditions that cause the obesity (underlying conditions). ? Surgery. Surgical options may include gastric banding and gastric bypass. Surgery may be done if: ? Other treatments have not helped to improve your condition. ? You have a BMI of 40 or higher. ? You have life-threatening health problems related to obesity. Follow these instructions at home: Eating and drinking ? Follow recommendations from your health care provider about what you eat and drink. Your health care provider may advise you to: ? Limit fast food, sweets, and processed snack foods. ? Choose low-fat options, such as low-fat milk instead of whole milk. ? Eat five or more servings of fruits or vegetables every day. ? Choose healthy foods when you eat out. ? Keep low-fat snacks available. ? Limit sugary drinks, such as soda, fruit juice, sweetened iced tea, and flavored milk. ? Drink enough water to keep your urine pale yellow. ? Do not follow a fad diet. Fad diets can be unhealthy and even dangerous. ? Other healthful choices include: ? Eat at home more often. This gives you more control over what you eat. ? Learn to read food labels. This will help you understand how much food is considered one serving. ? Learn what a healthy serving size is. Physical activity ? Exercise regularly, as told by your health care provider. ? Most adults should get up to 150 minutes of moderate-intensity exercise every week. ? Ask your health care provider what types of exercise are safe for you and how often you should exercise. ? Warm up and stretch before being active. ? Cool down and stretch after being active. ? Rest between periods of activity. Lifestyle ? Work with your health care provider and a dietitian to set a weight-loss goal that is healthy and reasonable for you. ? Limit your screen time. ? Find ways to reward yourself that do not involve food. ? Do not drink alcohol if: ? Your health care provider tells you not to drink. ? You are , may be , or are planning to become . ? If you drink alcohol: ? Limit how much you have to (more content not included)... Normal [facility] Patient Education Infectious Disease Skin Abscess A skin abscess is an infected area of your skin that contains pus and other material. An abscess can happen in any part of your body. Some abscesses break open (rupture) on their own. Most continue to get worse unless they are treated. The infection can spread deeper into the body and into your blood, which can make you feel sick. A skin abscess is caused by germs that enter the skin through a cut or scrape. It can also be caused by blocked oil and sweat glands or infected hair follicles. This condition is usually treated by: ? Draining the pus. ? Taking antibiotic medicines. ? Placing a warm, wet washcloth over the abscess. Follow these instructions at home: Medicines ? Take [id number] and prescription medicines only as told by your doctor. ? If you were prescribed an antibiotic medicine, take it as told by your doctor. Do not stop taking the antibiotic even if you start to feel better. Abscess care ? If you have an abscess that has not drained, place a warm, clean, wet washcloth over the abscess several times a day. Do this as told by your doctor. ? Follow instructions from your doctor about how to take care of your abscess. Make sure you: ? Cover the abscess with a bandage (dressing). ? Change your bandage or gauze as told by your doctor. ? Wash your hands with soap and water before you change the bandage or gauze. If you cannot use soap and water, use hand observation assistant. ? Check your abscess every day for signs that the infection is getting worse. Check for: ? More redness, swelling, or pain. ? More fluid or blood. ? Warmth. ? More pus or a bad smell. General instructions ? To avoid spreading the infection: ? Do not share personal care items, towels, or hot tubs with others. ? Avoid making [id number] contact with other people. ? Keep all follow-up visits as told by your doctor. This is important. Contact a doctor if: ? You have more redness, swelling, or pain around your abscess. ? You have more fluid or blood coming from your abscess. ? Your abscess feels warm when you touch it. ? You have more pus or a bad smell coming from your abscess. ? Your muscles ache. ? You feel sick. Get help right away if: ? You have very bad (severe) pain. ? You see red streaks on your skin spreading away from the abscess. ? You see redness that spreads quickly. ? You have a fever or chills. Summary ? A skin abscess is an infected area of your skin that contains pus and other material. ? The abscess is caused by germs that enter the skin through a cut or scrape. It can also be caused by blocked oil and sweat glands or infected hair follicles. ? Follow your doctor's instructions on caring for your abscess, taking medicines, preventing infections, and keeping follow-up visits. This information is not intended to replace advice given to you by your health care provider. Make sure you discuss any questions you have with your health care provider. Document Revised: 12/07/2022 Document Reviewed: 06/12/2022 [employer] Patient Education ? 2022 [employer] [facility] Provider Letteron 10-26-2023 Provider Letter October 26, 2023 SULTANA JOSHUA [address] [place] [id number] : 1980 To Whom It May Concern, Please excuse above patient from work. Date of Illness: From: 10/26/2023 To: 10/28/2023 May Return to Work On:2/12/24 Restrictions: _ Comments: _ Sincerely, Rajat Zeng MD [facility] [place] Normal [facility] Basic Metabolic Profon 06-22 Anion gap [Moles/Vol] 11 mmol/L Normal 9-[address] [facility] Comment on above: Performed By: #### C DP, BMP, MG #### [facility] [address] [place], [place] [id number] Microbiology Teacher: Norm Frank MD BUN/CRE Ratio 14 Normal 9-20 [facility] Comment on above: Performed By: #### C DP, BMP, MG #### [facility] [address] [place], [place] [id number] Microbiology Teacher: Norm Frank MD Calcium [Mass/Vol] 9.9 mg/dL Normal 8.6-10.[address] [facility] Comment on above: Performed By: #### C DP, BMP, MG #### [facility] [address] [place] [address] Microbiology Teacher: Norm Frank MD Chloride [Moles/Vol] 106 mmol/L Normal 98-[address] [facility] Comment on above: Performed By: #### C DP, BMP, MG #### [address] [place], [place] [id number] Microbiology Teacher: Norm Frank MD CO2 [Moles/Vol] 24 mmol/L Normal 20-31 [facility] Comment on above: Performed By: #### C DP, BMP, MG #### [facility] [address] [place], [place] [id number] Microbiology Teacher: Norm Frank MD Creatinine [Mass/Vol] 0.9 mg/dL Normal 0.7-1.[address] [facility] Comment on above: Performed By: #### C DP, BMP, MG #### [facility] [address] [place] [address] Microbiology Teacher: Norm Frank MD GFR/1.73 sq M.predicted among non-blacks MDRD (S/P/Bld) [Vol rate/Area] mL/min/{1.73_m2} Normal >[address] [facility] Comment on above: Result Comment: These results are not intended for [...] following therapy that affects renal tubular secretion. Performed By: #### C DP, BMP, MG #### [facility] [address] [place] [address] [place] [address] Microbiology Teacher: Norm Frank MD Glucose [Mass/Vol] 146 mg/dL High 70-[address] [facility] Comment on above: Performed By: #### C DP, BMP, MG #### [facility] [address] [place], [place] [id number] Microbiology Teacher: Norm Frank MD Potassium [Moles/Vol] 4.4 mmol/L Normal 3.7-5.[address] [facility] Comment on above: Performed By: #### C DP, BMP, MG #### [address] [place], [place] [id number] Microbiology Teacher: Norm Frank MD Sodium [Moles/Vol] 141 mmol/L Normal 135-[address] [facility] Comment on above: Performed By: #### C DP, BMP, MG #### [facility] [address] [place], [place] [id number] Microbiology Teacher: Norm Frank MD Urea nitrogen [Mass/Vol] 13 mg/dL Normal 6-[address] [facility] Comment on above: Performed By: #### C DP, BMP, MG #### [facility] [address] [place] [address] Microbiology Teacher: Norm Frank MD CBC with Diffon 06-22-2023 Abs. Basophil 0.04 k/uL Normal 0.00-0.20 [facility] Comment on above: Performed By: #### C DP, BMP, MG #### [address] [place] [address] Microbiology Teacher: Norm Frank MD Abs.Imm.Granulocyte <0.03 Normal 0.00-0.[address] [facility] Comment on above: Performed By: #### C DP, BMP, MG #### [address] [place], [facility]83 Microbiology Teacher: Norm Frank MD Abs.Neutrophil (Seg) 2.92 k/uL Normal 1.50-8.[address] [facility] Comment on above: Performed By: #### C DP, BMP, MG #### [address] [place] [id number] Microbiology Teacher: Norm Frank MD Basophils/100 WBC (Bld) 1 % Normal 0-[address] [facility] Comment on above: Performed By: #### C POP BMP, MG #### [address] [place], [facility]83 Microbiology Teacher: Norm Frank MD Eosinophils (Bld) [#/Vol] 0.26 10*3/uL Normal 0.00-0.[address] [facility] Comment on above: Performed By: #### C DP, BMP, MG #### [address] [place], [facility]83 Microbiology Teacher: Norm Frank MD Eosinophils/100 WBC (Bld) 4 % Normal 1-[address] [facility] Comment on above: Performed By: #### C DP, BMP, MG #### [address] [place], [facility]83 Microbiology Teacher: Norm Frank MD Erythrocyte distribution width (RBC) [Ratio] 12.6 % Normal 11.8-14.[address] [facility] Comment on above: Performed By: #### C DP, BMP, MG #### [facility] [address] [place], [place] [address] Microbiology Teacher: Norm Frank MD Hematocrit (Bld) [Volume fraction] 45.5 % Normal 40.7-50.[address] [facility] Comment on above: Performed By: #### C DP, BMP, MG #### [facility] [address] [place], [place] [address] Microbiology Teacher: Norm Frank MD Hemoglobin (Bld) [Mass/Vol] 16.4 g/dL Normal 13.0-17.[address] [facility] Comment on above: Performed By: #### C DP, BMP, MG #### [address] [place] [id number] Microbiology Teacher: Norm Frank MD Immature granulocytes/100 WBC (Bld) 0 % Normal [address] [facility] Comment on above: Performed By: #### C DP, BMP, MG #### [address] [place], [facility]83 Microbiology Teacher: Norm Frank MD Lymphocytes (Bld) [#/Vol] 2.51 10*3/uL Normal 1.10-3.[address] [facility] Comment on above: Performed By: #### C DP, BMP, MG #### [facility] [address] [place] [address] [place], [facility]83 Microbiology Teacher: Norm Frank MD Lymphocytes/100 WBC (Bld) 39 % Normal 24-[address] [facility] Comment on above: Performed By: #### C DP, BMP, MG #### [facility] [address] [place] [address] Microbiology Teacher: Norm Frank MD MCH (RBC) [Entitic mass] 34.5 pg High 25.2-33.[address] [facility] Comment on above: Performed By: #### C DP, BMP, MG #### [facility] [address] [place], [place] [id number] Microbiology Teacher: Norm Frank MD MCHC (RBC) [Mass/Vol] 36.0 g/dL High 28.4-34.[address] [facility] Comment on above: Performed By: #### C DP, BMP, MG #### [facility] [address] [place], [facility]83 Microbiology Teacher: Norm Frank MD MCV (RBC) [Entitic vol] 95.6 fL Normal 82.6-102.[address] [facility] Comment on above: Performed By: #### C DP, BMP, MG #### [address] [place] [id number] Microbiology Teacher: Norm Frank MD Monocytes (Bld) [#/Vol] 0.68 10*3/uL Normal 0.10-1.[address] [facility] Comment on above: Performed By: #### C DP, BMP, MG #### [address] [place], [facility]83 Microbiology Teacher: Norm Frank MD Monocytes/100 WBC (Bld) 11 % Normal 3-[address] [facility] Comment on above: Performed By: #### C DP, BMP, MG #### [address] [place], [facility]83 Microbiology Teacher: Norm Frank MD Neutrophil (Seg) 45 % Normal 36-65 [facility] Comment on above: Performed By: #### C DP, BMP, MG #### [address] [place] [id number] Microbiology Teacher: Norm Frank MD NRBC Automated 0.0 per 100 WBC Normal 0.[address] [facility] Comment on above: Performed By: #### C DP, BMP, MG #### [address] [place] [id number] Microbiology Teacher: Norm Frank MD Platelet mean volume (Bld) [Entitic vol] 9.8 fL Normal 8.1-13.[address] [facility] Comment on above: Performed By: #### C DP, BMP, MG #### [facility] [address] [place] [address] [place], [facility]83 Microbiology Teacher: Norm Frank MD Platelets (Bld) [#/Vol] 210 10*3/uL Normal 138-[address] [facility] Comment on above: Performed By: #### C DP, BMP, MG #### [address] [place], [facility]83 Microbiology Teacher: Norm Frank MD RBC (Bld) [#/Vol] 4.76 10*6/uL Normal 4.21-5.[address] [facility] Comment on above: Performed By: #### C DP, BMP, MG #### [address] [place], [facility]83 Microbiology Teacher: Norm Frank MD WBC (Bld) [#/Vol] 6.4 10*3/uL Normal 3.5-11.[address] [facility] Comment on above: Performed By: #### C DP, BMP, MG #### [address] [place], [facility]83 Microbiology Teacher: Norm Frank MD CT HEAD WO CONTRASTon 2022 CT HEAD WO CONTRAST EXAMINATION: CT OF THE HEAD WITHOUT CONTRAST 06/22/2023 6:07 am TECHNIQUE: CT of the head was performed without the administration of intravenous contrast. Automated exposure control, iterative reconstruction, and/or weight based adjustment of the mA/kV was utilized to reduce the radiation dose to as low as reasonably achievable. COMPARISON: None. HISTORY: ORDERING SYSTEM PROVIDED HISTORY: Facial droop and numbness. Left sided TECHNOLOGIST PROVIDED HISTORY: Facial droop and numbness. Left sided Decision Support Exception - unselect if not a suspected or confirmed emergency medical condition->Emergency Medical Condition (MA) FINDINGS: BRAIN/VENTRICLES: There is no acute intracranial hemorrhage, mass effect or midline shift. No abnormal extra-axial fluid collection. The card-white differentiation is maintained without evidence of an acute infarct. There is no evidence of hydrocephalus. ORBITS: The visualized portion of the orbits demonstrate no acute abnormality. SINUSES: The visualized paranasal sinuses and mastoid air cells demonstrate no acute abnormality. SOFT TISSUES/SKULL: No acute abnormality of the visualized skull or soft tissues. IMPRESSION: No acute intracranial abnormality. Interpreted by: Dakota Bennett MD Signed by: Dakota Bennett MD 06/22/23 Final result Normal [facility] CTA HEAD NECK W CONTRASTon 1 CTA HEAD NECK W CONTRAST EXAMINATION: CTA OF THE HEAD AND NECK WITH CONTRAST 06/22/2023 6:01 am: TECHNIQUE: CTA of the head and neck was performed with the administration of intravenous contrast. Multiplanar reformatted images are provided for review. MIP images are provided for review. Stenosis of the internal carotid arteries measured using NASCET criteria. Automated exposure control, iterative reconstruction, and/or weight based adjustment of the mA/kV was utilized to reduce the radiation dose to as low as reasonably achievable. COMPARISON: CT head 06/22/2023. HISTORY: ORDERING SYSTEM PROVIDED HISTORY: L sided facial droop and numbness TECHNOLOGIST PROVIDED HISTORY: L sided facial droop and numbness Decision Support Exception - unselect if not a suspected or confirmed emergency medical condition->Emergency Medical Condition (MA) FINDINGS: CTA NECK: AORTIC ARCH/ARCH VESSELS: No dissection or arterial injury. No significant stenosis of the brachiocephalic or subclavian arteries. CAROTID ARTERIES: No dissection, arterial injury, or hemodynamically significant stenosis by NASCET criteria. VERTEBRAL ARTERIES: No dissection, arterial injury, or significant stenosis. SOFT TISSUES: The lung apices are clear. No cervical or superior mediastinal lymphadenopathy. The larynx and pharynx are unremarkable. No acute abnormality of the salivary and thyroid glands. BONES: No acute osseous abnormality. CTA HEAD: ANTERIOR CIRCULATION: No significant stenosis of the intracranial internal carotid, anterior cerebral, or middle cerebral arteries. No aneurysm. POSTERIOR CIRCULATION: No significant stenosis of the vertebral, basilar, or posterior cerebral arteries. No aneurysm. OTHER: No dural venous sinus thrombosis on this non-dedicated study. BRAIN: No mass effect or midline shift. No extra-axial fluid collection. The card-white differentiation is maintained. IMPRESSION: Unremarkable CTA of the head and neck. Interpreted by: Virgil Steward MD Signed by: Virgil Steward MD 06/22/23 Final result Normal [facility] Magnesiumon 06-22-2023 Magnesium [Mass/Vol] 1.8 mg/dL Normal 1.6-2.[address] [facility] Comment on above: Performed By: #### C DP, BMP, MG #### [facility] [address] [place] [address] Microbiology Teacher: Norm Frank MD Hemoglobin A1Con 09-03-2022 Glucose [Mass/Vol] 146 mg/dL Normal [facility] Comment on above: Result Comment: The ADA and AACC recommend providing the estimated average glucose result to permit better patient understanding of their HBA1c result. Performed By: #### C P, CBC #### [facility] [address] [place] [address] Microbiology Teacher: Norm Frank MD #### BVTEST, GLYHGB #### [facility] [employer]ified [employer] [address] [place] [address] Microbiology Teacher: Trenton Carbajal MD HbA1c (Bld) [Mass fraction] 6.7 % High 4.0-6.[address] [facility] Comment on above: Performed By: #### C P, CBC #### [facility] [address] [place] [address] Microbiology Teacher: Norm Frank MD #### BVTEST, GLYHGB #### [facility] [employer] [address] [place], [place] [id number] Microbiology Teacher: Trenton Carbajal MD Lipid Panelon 09-02-2022 Cholesterol [Mass/Vol] 185 mg/dL NINF - 200 mg/dL [facility] Comment on above: Cholesterol Guidelines: <200 Desirable 200-240 Borderline >240 Undesirable Cholesterol in HDL [Mass/Vol] 37 mg/dL Low 40 - PINF mg/dL [facility] Comment on above: HDL Guidelines: <40 Undesirable 40-59 Borderline >59 Desirable Cholesterol in LDL [Mass/Vol] 119 mg/dL 0 - 130 mg/dL [facility] Comment on above: LDL Guidelines: <100 Desirable 100-129 Near to/above Desirable 130-159 Borderline >159 Undesirable Direct (measured) LDL and calculated LDL are not interchangeable tests. Cholesterol.total/C holesterol in HDL [Mass ratio] 5 {ratio} High NINF - 5 [facility] Interpretation and review of laboratory results Abnormal [facility] Triglyceride [Mass/Vol] 144 mg/dL NINF - 150 mg/dL [facility] Comment on above: Triglyceride Guidelines: <150 Desirable 150-199 Borderline 200-499 High >499 Very high Based on AHA Guidelines for fasting triglyceride, June 2012. [facility] Lipid Profileon 09-02-2022 Cholesterol [Mass/Vol] 185 mg/dL Normal <[address] [facility] Comment on above: Result Comment: Cholesterol Guidelines: <200 Desirable 200-240 Borderline >240 Undesirable Performed By: #### L IPR #### [employer] [address] [place], [place] [id number] Microbiology Teacher: Trenton Carbajal MD Cholesterol in HDL [Mass/Vol] 37 mg/dL Low >[address] [facility] Comment on above: Result Comment: HDL Guidelines: <40 Undesirable 40-59 Borderline >59 Desirable Performed By: #### L IPR #### [employer] [facility] [place], [place] [id number] Microbiology Teacher: Trenton Carbajal MD Cholesterol in LDL [Mass/Vol] 119 mg/dL Normal 0-[address] [facility] Comment on above: Result Comment: LDL Guidelines: <100 Desirable 100-129 Near to/above Desirable 130-159 Borderline >159 Undesirable Direct (measured) LDL and calculated LDL are not interchangeable tests. Performed By: #### L IPR #### [facility] [address] [place] [id number] Microbiology Teacher: Trenton Carbajal MD Cholesterol.total/C holesterol in HDL [Mass ratio] 5.0 {ratio} High <[address] [facility] Comment on above: Performed By: #### L IPR #### [facility] [address] [place] [address] Microbiology Teacher: Trenton Carbajal MD Triglyceride [Mass/Vol] 144 mg/dL Normal <[address] [facility] Comment on above: Result Comment: Triglyceride Guidelines: <150 Desirable 150-199 Borderline 200-499 High >499 Very high Based on AHA Guidelines for fasting triglyceride, June 2012. Performed By: #### L IPR #### [facility] [address] [place] [address] Microbiology Teacher: Trenton Carbajal MD Testosterone Free Bio Totalo n 09-02-2022 Sex Hormone Binding 56 nmol/L 11 - 80 nmol/L B ON [facility] Testosterone [Mass/Vol] 752 ng/dL 220 - 1000 ng/dL [facility] Testosterone, Bioavailable 279.5 ng/dL 130 - 680 ng/dL [facility] Comment on above: The concentration of bioavailable testosterone is derived from a mathematical expression based on the constant for the binding of testosterone to albumin and/or sex hormone binding globulin. Testosterone, Free 119.3 pg/mL 47 - 244 pg/mL B ON [facility] Comment on above: The concentration of free testosterone is derived from a mathematical expression based on the constant for the binding of testosterone to albumin and/or sex hormone binding globulin. [facility] Testosterone,Bioavailon - Sex Horm Bind Glob 56 nmol/L Normal 11-[address] [facility] Comment on above: Performed By: #### C P, CBC #### [facility] [address] [place] [address] Microbiology Teacher: Norm Frank MD #### BVTEST, GLYHGB #### [facility] [address] [place], [place] [id number] Microbiology Teacher: Trenton Carbajal MD Test,Bioavail 279.5 ng/dL Normal 130-680 [facility] Comment on above: Result Comment: The concentration of bioavailable testosterone is derived from a mathematical expression based on the constant for the binding of testosterone to albumin and/or sex hormone binding globulin. Performed By: #### C P, CBC #### [facility] [address] [place], [place] [id number] Microbiology Teacher: Norm Frank MD #### BVTEST, GLYHGB #### [facility] [address] [place] [address] Microbiology Teacher: Trenton Carbajal MD Testosterone [Mass/Vol] 752 ng/dL Normal 220-[address] [facility] Comment on above: Performed By: #### C P, CBC #### [facility] [address] [place] [address] [place] [place], [place] [id number] Microbiology Teacher: Norm Frank MD #### BVTEST, GLYHGB #### [address] [place] [address] Microbiology Teacher: Trenton Carbajal MD Testosterone,Free 119.3 pg/mL Normal 47-[address] [facility] Comment on above: Result Comment: The concentration of free testosterone is derived from a mathematical expression based on the constant for the binding of testosterone to albumin and/or sex hormone binding globulin. Performed By: #### C P, CBC #### [address] [place], [place] [phone] Microbiology Teacher: Norm Frank MD #### BVTEST, GLYHGB #### [address] [place] [address] Microbiology Teacher: Trenton Carbajal MD CBCon 09-01-2022 Erythrocyte distribution width (RBC) [Ratio] 12.9 % Normal 11.8-14.[address] [facility] Comment on above: Performed By: #### C P, CBC #### [address] [place], [place] [phone] Microbiology Teacher: Norm Frank MD #### BVTEST, GLYHGB #### [address] [place] [address] Microbiology Teacher: Trenton Carbajal MD Hematocrit (Bld) [Volume fraction] 44.0 % Normal 40.7-50.[address] [facility] Comment on above: Performed By: #### C P, CBC #### [address] [place] [phone] Microbiology Teacher: Norm Frank MD #### BVTEST, GLYHGB #### [address] [phone] Microbiology Teacher: Trenton Carbajal MD Hemoglobin (Bld) [Mass/Vol] 15.7 g/dL Normal 13.0-17.[address] [facility] Comment on above: Performed By: #### C P, CBC #### [address] [place] [phone] Microbiology Teacher: Norm Frank MD #### BVTEST, GLYHGB #### [place] [phone] Microbiology Teacher: Trenton Carbajal MD MCH (RBC) [Entitic mass] 33.9 pg High 25.2-33.[address] [facility] Comment on above: Performed By: #### C P, CBC #### [address] [place] [phone] Microbiology Teacher: Norm Frank MD #### BVTEST, GLYHGB #### [place] [phone] Microbiology Teacher: Trenton Carbaajl MD MCHC (RBC) [Mass/Vol] 35.7 g/dL High 28.4-34.[address] [facility] Comment on above: Performed By: #### C P, CBC #### [address] [place] [address] Microbiology Teacher: Norm Frank MD #### BVTEST, GLYHGB #### [address] [phone] Microbiology Teacher: Trenton Carbajal MD MCV (RBC) [Entitic vol] 95.0 fL Normal 82.6-102.[address] [facility] Comment on above: Performed By: #### C P, CBC #### [facility] [address] [place] [address] [place] [address] Microbiology Teacher: Norm Frank MD #### BVTEST, GLYHGB #### [address] [phone] Microbiology Teacher: Trenton Carbajal MD NRBC Automated 0.0 per 100 WBC Normal 0.[address] [facility] Comment on above: Performed By: #### C P, CBC #### [address] [place] [phone] Microbiology Teacher: Norm Frank MD #### BVTEST, GLYHGB #### [place] [address] Microbiology Teacher: Trenton Carbajal MD Platelet mean volume (Bld) [Entitic vol] 10.6 fL Normal 8.1-13.[address] [facility] Comment on above: Performed By: #### C P, CBC #### [address] [place] [phone] Microbiology Teacher: Norm Frank MD #### BVTEST, GLYHGB #### [place] [address] Microbiology Teacher: Tretnon Carbajal MD Platelets (Bld) [#/Vol] 187 10*3/uL Normal 138-[address] [facility] Comment on above: Performed By: #### C P, CBC #### [address] [place] [address] Microbiology Teacher: Norm Frank MD #### BVTEST, GLYHGB #### [address] [phone] Microbiology Teacher: Trenton Carbajal MD RBC (Bld) [#/Vol] 4.63 10*6/uL Normal 4.21-5.[address] [facility] Comment on above: Performed By: #### C P, CBC #### [facility] [address] [place] [address] Microbiology Teacher: Norm Frank MD #### BVTEST, GLYHGB #### [address] [place], [place] [phone] Microbiology Teacher: Trenton Carbajal MD WBC (Bld) [#/Vol] 5.3 10*3/uL Normal 3.5-11.[address] [facility] Comment on above: Performed By: #### C P, CBC #### [facility] [address] [place] [address] [place] [address] Microbiology Teacher: Norm Frank MD #### BVTEST, GLYHGB #### [address] [place], [place] [phone] Microbiology Teacher: Trenton Carbajal MD Hematocrit (Bld) [Volume fraction] 44.0 % 40.7 - 50.3 % [facility] Hemoglobin (Bld) [Mass/Vol] 15.7 g/dL 13.0 - 17.0 g/dL [facility] Interpretation and review of laboratory results Abnormal [facility] MCH (RBC) [Entitic mass] 33.9 pg High 25.2 - 33.5 pg [facility] MCHC (RBC) [Mass/Vol] 35.7 g/dL High 28.4 - 34.8 g/dL [facility] MCV (RBC) [Entitic vol] 95.0 fL 82.6 - 102.9 fL [facility] NRBC Automated 0.0 0.0 per 100 WBC [facility] Platelet distribution width (Bld) [Ratio] 12.9 % 11.8 - 14.4 % [facility] Platelet mean volume (Bld) [Entitic vol] 10.6 fL 8.1 - 13.5 fL [facility] Platelets (Bld) [#/Vol] 187 10*3/uL [facility] RBC (Bld) [#/Vol] 4.63 10*6/uL 4.21 - 5.77 m/uL [facility] WBC (Bld) [#/Vol] 5.3 10*3/uL [facility] Comp Metabolic Profon 2021 Albumin [Mass/Vol] 4.4 g/dL Normal 3.5-5.[address] [facility] Comment on above: Performed By: #### C P, CBC #### [facility] [address] [place] [address] Microbiology Teacher: Norm Frank MD #### BVTEST, GLYHGB #### [address] [phone] Microbiology Teacher: Trenton Carbajal MD Albumin/Glob Ratio 1.6 Normal 1.0-2.[address] [facility] Comment on above: Performed By: #### C P, CBC #### [facility] [address] [place], [place] [phone] Microbiology Teacher: Norm Frank MD #### BVTEST, GLYHGB #### [address] [place], [place] [phone] Microbiology Teacher: Trenton Carbajal MD Alkaline Phos 61 U/L Normal 40-129 [facility] Comment on above: Performed By: #### C P, CBC #### [facility] [address] [place], [place] [phone] Microbiology Teacher: Norm Frank MD #### BVTEST, GLYHGB #### [address] [place] [address] Microbiology Teacher: Trenton Carbajal MD ALT [Catalytic activity/Vol] 40 U/L Normal 5-[address] [facility] Comment on above: Performed By: #### C P, CBC #### [facility] [address] [place], [place] [phone] Microbiology Teacher: Norm Frank MD #### BVTEST, GLYHGB #### [address] [phone] Microbiology Teacher: Trenton Carbajal MD Anion gap [Moles/Vol] 11 mmol/L Normal 9-[address] [facility] Comment on above: Performed By: #### C P, CBC #### [facility] [address] [place] [address] [place] [place], [place] [phone] Microbiology Teacher: Norm Frank MD #### BVTEST, GLYHGB #### [address] [phone] Microbiology Teacher: Trenton Carbajal MD AST [Catalytic activity/Vol] 23 U/L Normal <[address] [facility] Comment on above: Performed By: #### C P, CBC #### [facility] [address] [place] [address] [address] [place], [place] [phone] Microbiology Teacher: Norm Frank MD #### BVTEST, GLYHGB #### [address] [phone] Microbiology Teacher: Trenton Carbajal MD Bilirubin [Mass/Vol] 0.4 mg/dL Normal 0.3-1.[address] [facility] Comment on above: Performed By: #### C P, CBC #### [facility] [address] [place] [address] [place], [place] [phone] Microbiology Teacher: Norm Frank MD #### BVTEST, GLYHGB #### [address] [phone] Microbiology Teacher: Trenton Carbajal MD BUN/CRE Ratio 19 Normal 9-20 [facility] Comment on above: Performed By: #### C P, CBC #### [address] [place] [address] Microbiology Teacher: Norm Frank MD #### BVTEST, GLYHGB #### [address] [place], [place] [phone] Microbiology Teacher: Trenton Carbajal MD Calcium [Mass/Vol] 9.8 mg/dL Normal 8.6-10.[address] [facility] Comment on above: Performed By: #### C P, CBC #### [facility] [address] [place] [address] [place] [address] Microbiology Teacher: Norm Frank MD #### BVTEST, GLYHGB #### [address] [place], [place] [phone] Microbiology Teacher: Trenton Carbajal MD Chloride [Moles/Vol] 106 mmol/L Normal 98-[address] [facility] Comment on above: Performed By: #### C P, CBC #### [address] [place] [address] Microbiology Teacher: Norm Frank MD #### BVTEST, GLYHGB #### [address] [phone] Microbiology Teacher: Trenton Carbajal MD CO2 [Moles/Vol] 23 mmol/L Normal 20-31 [facility] Comment on above: Performed By: #### C P, CBC #### [address] [place] [phone] Microbiology Teacher: Norm Frank MD #### BVTEST, GLYHGB #### [address] [phone] Microbiology Teacher: Trenton Carbajal MD Creatinine [Mass/Vol] 0.73 mg/dL Normal 0.70-1.[address] [facility] Comment on above: Performed By: #### C P, CBC #### [address] [place] [address] Microbiology Teacher: Norm Frank MD #### BVTEST, GLYHGB #### [facility] Verified Person [address] [place], [place] [phone] Microbiology Teacher: Trenton Carbajal MD GFR/1.73 sq M.predicted among non-blacks MDRD (S/P/Bld) [Vol rate/Area] mL/min/{1.73_m2} Normal >[address] [facility] Comment on above: Result Comment: Effective Jun 19, 2022 These results are not intended for use [...] following therapy that affects renal tubular secretion. Performed By: #### C P, CBC #### [facility] [address] [place] [address] [place] [address] Microbiology Teacher: Norm Frank MD #### BVTEST, GLYHGB #### [address] [place], [place] [phone] Microbiology Teacher: Trenton Carbajal MD Glucose [Mass/Vol] 179 mg/dL High 70-[address] [facility] Comment on above: Performed By: #### C P, CBC #### [facility] [address] [place] [address] [place] [address] Microbiology Teacher: Norm Frank MD #### BVTEST, GLYHGB #### [facility] Ver[employer] [address] [place], [place] [phone] Microbiology Teacher: Trenton Carbajal MD Potassium [Moles/Vol] 4.1 mmol/L Normal 3.7-5.[address] [facility] Comment on above: Performed By: #### C P, CBC #### [facility] [address] [place] [address] [place] [address] Microbiology Teacher: Norm Frank MD #### BVTEST, GLYHGB #### [address] [place], [place] [phone] Microbiology Teacher: Trenton Carbajal MD Protein [Mass/Vol] 7.1 g/dL Normal 6.4-8.[address] [facility] Comment on above: Performed By: #### C P, CBC #### [facility] [address] [place], [place] [id number] Microbiology Teacher: Norm Frank MD #### BVTEST, GLYHGB #### [address] [place], [place] [phone] Microbiology Teacher: Trenton Carbajal MD Sodium [Moles/Vol] 140 mmol/L Normal 135-[address] [facility] Comment on above: Performed By: #### C P, CBC #### [facility] [address] [place], [place] [phone] Microbiology Teacher: Norm Frank MD #### BVTEST, GLYHGB #### [address] [place], [place] [phone] Microbiology Teacher: Trenton Carbajal MD Urea nitrogen [Mass/Vol] 14 mg/dL Normal 6-[address] [facility] Comment on above: Performed By: #### C P, CBC #### [facility] [address] [place], [place] [phone] Microbiology Teacher: Norm Frank MD #### BVTEST, GLYHGB #### [address] [phone] Microbiology Teacher: Trenton Carbajal MD Comprehensive Metabolic Pane [facility] 09-01-2022 Albumin [Mass/Vol] 4.4 g/dL 3.5 - 5.2 g/dL [facility] Albumin/Globulin [Mass ratio] 1.6 {ratio} 1.0 - 2.5 [facility] ALP (Bld) [Catalytic activity/Vol] 61 U/L 40 - 129 U/L [facility] ALT [Catalytic activity/Vol] 40 U/L 5 - 41 U/L [facility] Anion gap [Moles/Vol] 11 mmol/L 9 - 17 mmol/L [facility] AST [Catalytic activity/Vol] 23 U/L NINF - 40 U/L [facility] Bilirubin [Mass/Vol] 0.4 mg/dL 0.3 - 1.2 mg/dL [facility] Calcium [Mass/Vol] 9.8 mg/dL 8.6 - 10.4 mg/dL [facility] Chloride [Moles/Vol] 106 mmol/L 98 - 107 mmol/L [facility] CO2 [Moles/Vol] 23 mmol/L 20 - 31 mmol/L [facility] Creatinine [Mass/Vol] 0.73 mg/dL 0.70 - 1.20 mg/dL [facility] GFR/1.73 sq M.predicted MDRD (S/P/Bld) [Vol rate/Area] - PINF [facility] Comment on above: Effective Jun 19, 2022 These results are not intended for use [...] following therapy that affects renal tubular secretion. Glucose [Mass/Vol] 179 mg/dL High 70 - 99 mg/dL [facility] Interpretation and review of laboratory results Abnormal [facility] Potassium [Moles/Vol] 4.1 mmol/L 3.7 - 5.3 mmol/L [facility] Protein [Mass/Vol] 7.1 g/dL 6.4 - 8.3 g/dL [facility] Sodium [Moles/Vol] 140 mmol/L 135 - 144 mmol/L [facility] Urea nitrogen (BldV) [Mass/Vol] 14 mg/dL 6 - 20 mg/dL [facility] Urea nitrogen/Creatinine (Bld) [Mass ratio] 19 9 - 20 [facility] XR RIBS RIGHT (2 VIEWS)on No acute osseous abnormality of the right ribs. [place] EXAMINATION: 2 XRAY VIEWS OF THE RIGHT RIBS 09/13/2020 4:22 pm COMPARISON: None. HISTORY: ORDERING SYSTEM PROVIDED HISTORY: Right-sided chest pain TECHNOLOGIST PROVIDED HISTORY: right sided chest pain, s/p injury FINDINGS: AP and oblique views of the right chest wall are submitted for review. No acute fracture or dislocation identified. Overlying soft tissues are unremarkable. Visualized lung parenchyma is clear. [place], [place] Donis, [facility] Incoming Radiant Results From [employer] [facility] - 09/13/2020 4:56 PM EST EXAMINATION: 2 XRAY VIEWS OF THE RIGHT RIBS 09/13/2020 4:22 pm COMPARISON: None. HISTORY: ORDERING SYSTEM PROVIDED HISTORY: Right-sided chest pain TECHNOLOGIST PROVIDED HISTORY: right sided chest pain, s/p injury FINDINGS: AP and oblique views of the right chest wall are submitted for review. No acute fracture or dislocation identified. Overlying soft tissues are unremarkable. Visualized lung parenchyma is clear. IMPRESSION: No acute osseous abnormality of the right ribs. [place] Javier 07-21-2020 ALT [Catalytic activity/Vol] 37 U/L 5 - 41 U/L [place] Adele 07-21-2020 AST [Catalytic activity/Vol] 19 U/L <40 [place] Basic Metabolic Panelon 11-0 Anion gap [Moles/Vol] 10 mmol/L 9 - 17 mmol/L [place] Bun/Cre Ratio 18 [place] Calcium [Mass/Vol] 9.9 mg/dL 8.6 - 10.4 mg/dL [place] Chloride [Moles/Vol] 99 mmol/L 98 - 107 mmol/L [place] CO2 [Moles/Vol] 25 mmol/L 20 - 31 mmol/L [place] Creatinine [Mass/Vol] 0.77 mg/dL 0.7 - 1.2 mg/dL [place] GFR >60 >60 mL/min [place] GFR Non- >60 >60 mL/min [place] Glucose [Mass/Vol] 140 mg/dL High 70 - 99 mg/dL [place] Interpretation and review of laboratory results Abnormal [place] Potassium [Moles/Vol] 4.0 mmol/L 3.7 - 5.3 mmol/L [place] Sodium [Moles/Vol] 134 mmol/L Low 135 - 144 mmol/L [place] Urea nitrogen [Mass/Vol] 14 mg/dL 6 - 20 mg/dL [place] CBCon 07-21-2020 Erythrocyte distribution width (RBC) [Ratio] 12.3 % 11.8 - 14.4 % [place] Hematocrit (Bld) [Volume fraction] 48.7 % 40.7 - 50.3 % [place] Hemoglobin (Bld) [Mass/Vol] 17.4 g/dL High 13 - 17 g/dL [place] Interpretation and review of laboratory results Abnormal [place] MCH (RBC) [Entitic mass] 33.4 pg 25.2 - 33.5 pg [place] MCHC (RBC) [Mass/Vol] 35.7 g/dL High 28.4 - 34.8 g/dL [place] MCV (RBC) [Entitic vol] 93.5 fL 82.6 - 102.9 fL [place] Platelet mean volume (Bld) [Entitic vol] 10.1 fL 8.1 - 13.5 fL [place] Platelets (Bld) [#/Vol] 206 10*3/uL [place] RBC (Bld) [#/Vol] 5.21 10*6/uL 4.21 - 5.77 m/uL [place] WBC (Bld) [#/Vol] 7.8 10*3/uL [place] WBC (Bld) [#/Vol] 0.0 10*3/uL 0.0 per 100 WBC [place] Lipid Panelon 07-21-2020 Cholesterol [Mass/Vol] 190 mg/dL <200 [place] Comment on above: Cholesterol Guidelines: <200 Desirable 200-240 Borderline >240 Undesirable Cholesterol in HDL [Mass/Vol] 36 mg/dL Low >40 [place] Comment on above: HDL Guidelines: <40 Undesirable 40-59 Borderline >59 Desirable Cholesterol in LDL [Mass/Vol] 107 mg/dL 0 - 130 mg/dL [place] Comment on above: LDL Guidelines: <100 Desirable 100-129 Near to/above Desirable 130-159 Borderline >159 Undesirable Direct (measured) LDL and calculated LDL are not interchangeable tests. Cholesterol in VLDL [Mass/Vol] NOT REPORTED High 1 - 30 mg/dL [place] Cholesterol.total/C holesterol in HDL [Mass ratio] 5.3 {ratio} High <5 [place] Interpretation and review of laboratory results Abnormal [place] Triglyceride [Mass/Vol] 235 mg/dL High <150 [place] Comment on above: Triglyceride Guidelines: <150 Desirable 150-199 Borderline 200-499 High >499 Very high Based on AHA Guidelines for fasting triglyceride, June 2012. Metabolic Panelon 07-21-2020 GFR/1.73 sq M predicted among non-blacks MDRD (S/P/Bld) [Vol rate/Area] [place] Comment on above: Stage 1: Some kidney damage normal GFR Stage 2: Mild kidney damage GFR 60-89 Stage 3: Moderate kidney damage GFR 30-59 Stage 4: Severe kidney damage GFR 15-29 Stage 5: Severe kidney damage GFR <15 ESRD - chronic treatment by dialysis or transplant Average GFR for 40-4 9 years old: 99 mL/min/1.73sq m Chronic Kidney Disease: <60 mL/min/1.73sq m Kidney failure: <15 mL/min/1.73sq m eGFR calculated using average adult body mass. Additional eGFR calculator available at: http://www.[employer].Innotrieve/multiple_crcl_2012.htm BILIRUBIN CONJUGATED (DIRECT )on 05-18-2020 BILI, CONJUGATED 0.2 mg/dL Normal 0.0-0.3 [facility] Comment on above: Performed By: #### D KAREN #### [facility] [address] [address] Taras Winkler CBC AUTO DIFFon 05-18-2020 Basophils (Bld) [#/Vol] 0.0 103/ul Normal 0.0-0.1 [facility] Comment on above: Performed By: #### C BC #### [facility] [address] [place], [place] [address] Taras Cathi Basophils/100 WBC (Bld) 0.7 % Normal 0.2-2.0 [facility] Comment on above: Performed By: #### C BC #### [facility] [address] [place] [address] Taras Cathi Eosinophils (Bld) [#/Vol] 0.1 103/ul Normal 0.0-0.7 [facility] Comment on above: Performed By: #### C BC #### [facility] [address] [place] [address] Taras Cathi Eosinophils/100 WBC (Bld) 1.8 % Normal 0.9-7.0 [facility] Comment on above: Performed By: #### C BC #### [facility] [address] [place] [address] Taras Cathi Erythrocyte distribution width (RBC) [Ratio] 12.5 % Normal 11.0-15.0 [facility] Comment on above: Performed By: #### C BC #### [facility] [address] [place] [address] Taras Cathi Hematocrit (Bld) [Volume fraction] 48.4 % Normal 42.0-54.0 [facility] Comment on above: Performed By: #### C BC #### [facility] [address] [place] [address] Taras Cathi Hemoglobin (Bld) [Mass/Vol] 17.3 g/dL Normal 14.0-18.0 [facility] Comment on above: Performed By: #### C BC #### [facility] [address] [place] [address] Taras Cathi IG # 0.02 10e3/ul Normal 0.00-0.03 [facility] Comment on above: Performed By: #### C BC #### [facility] [address] [place] [address] Taras Cathi IG % 0.3 % Normal 0.0-0.5 [facility] Comment on above: Performed By: #### C BC #### [facility] [address] [place] [address] Taras Cathi Lymphocytes (Bld) [#/Vol] 1.9 103/ul Normal 1.2-3.8 [facility] Comment on above: Performed By: #### C BC #### [facility] [address] [place] [address] Taras Cathi Lymphocytes/100 WBC (Bld) 30.5 % Normal 20.5-60.0 [facility] Comment on above: Performed By: #### C BC #### [facility] [address] [place], [place] [id number] Tarasrohan Vazquezen MANUAL DIFF REQ NO Normal [facility] Comment on above: Performed By: #### C BC #### [facility] [address] [place] [address] Taras Cathi MCH (RBC) [Entitic mass] 33.6 pg Normal 25.9-34.0 [facility] Comment on above: Performed By: #### C BC #### [facility] [address] [place], [place] [phone] Taras Cathi MCHC (RBC) [Mass/Vol] 35.7 g/dL Critically high 29.9-35.2 [facility] Comment on above: Performed By: #### C BC #### [facility] [address] [place] [address] Taras Cathi MCV (RBC) [Entitic vol] 94.0 fL Normal 80.0-94.0 [facility] Comment on above: Performed By: #### C BC #### [facility] [address] [place], [place] [id number] Taras Cathi Monocytes (Bld) [#/Vol] 0.5 103/ul Normal 0.3-0.8 [facility] Comment on above: Performed By: #### C BC #### [facility] [address] [place], [place] [address] Taras Cathi Monocytes/100 WBC (Bld) 8.0 % Normal 1.7-12.0 [facility] Comment on above: Performed By: #### C BC #### [facility] [address] [place], [place] [address] Taras Cathi Neutrophils (Bld) [#/Vol] 3.6 103/ul Normal 1.4-6.5 [facility] Comment on above: Performed By: #### C BC #### [facility] [address] [place], [place] [address] Taras Cathi Neutrophils/100 WBC (Bld) 58.7 % Normal 43.0-75.0 [facility] Comment on above: Performed By: #### C BC #### [facility] [address] [place], [place] [id number] Taras Cathi Platelet mean volume (Bld) [Entitic vol] 10.4 fL Normal 9.5-13.5 [facility] Comment on above: Performed By: #### C BC #### [facility] [address] [place], [place] [id number] Taras Cathi Platelets (Bld) [#/Vol] 203 103/ul Normal 150-450 [facility] Comment on above: Performed By: #### C BC #### [facility] [address] [place], [place] [id number] Taras Cathi RBC (Bld) [#/Vol] 5.15 106/ul Normal 4.70-6.10 [facility] Comment on above: Performed By: #### C BC #### [facility] [address] [place], [place] [id number] Taras Cathi WBC (Bld) [#/Vol] 6.1 103/ul Normal 4.0-11.0 [facility] Comment on above: Performed By: #### C BC #### [facility] [address] [place], [place] [id number] Taras Cathi GLYCOHEMOGLOBIN A1Con 2019 Glucose [Mass/Vol] 232 mg/dL Normal [facility] Comment on above: Performed By: #### A 1C #### [facility] [address] [place], [place] [id number] Taras Cathi HbA1c (Bld) [Mass fraction] 9.7 % Critically high <=6.0 [facility] Comment on above: Performed By: #### A 1C #### [facility] [address] [id number] Taras Cathi LIPID PROFILEon 05-18-2020 CHOL-HDL RATIO NORM SEE BELOW Normal [facility] Comment on above: Result Comment: 3.3 - 4.4 LOW RISK 4.4 - 7.1 AVERAGE RISK 7.1 - 11.0 MODERATE RISK >11.0 HIGH RISK Performed By: #### C MP, LIPID #### [facility] [address] [place] [address] Taras Cathi Cholesterol [Mass/Vol] 244 mg/dL Critically high <=200 [facility] Comment on above: Performed By: #### C MP, LIPID #### [facility] [address] [place], [place] [id number] Taras Cathi Cholesterol in HDL [Mass/Vol] > or = 60 mg/dl - LOW CARDIOVASCULAR RISK <40 mg/dl - HIGH CARDIOVASCULAR RISK Normal [facility] Comment on above: Performed By: #### C MP, LIPID #### [facility] [address] [place] [address] Taras Cathi Cholesterol in HDL [Mass/Vol] 35 mg/dL Normal [facility] Comment on above: Performed By: #### C MP, LIPID #### [facility] [address] [place], [place] [id number] Taras Cathi Cholesterol in LDL [Mass/Vol] 179.8 mg/dL Normal [facility] Comment on above: Performed By: #### C MP, LIPID #### [facility] [address] [place], [place] [id number] Taras Cathi Cholesterol in LDL [Mass/Vol] SEE BELOW Normal [facility] Comment on above: Result Comment: <100 mg/dl OPTIMAL 100 - 129 mg/dl NEAR OR ABOVE OPTIMAL 130 - 159 mg/dl BORDERLINE HIGH 160 - 189 mg/dl HIGH >190 mg/dl VERY HIGH Performed By: #### C MP, LIPID #### [facility] [address] [place], [place] [id number] Taras Cathi Cholesterol.total/C holesterol in HDL [Mass ratio] 7.0 {ratio} Normal [facility] Comment on above: Performed By: #### C MP, LIPID #### [facility] [address] [place], [place] [id number] Taras Cathi Triglyceride [Mass/Vol] 146 mg/dL Normal <=150 [facility] Comment on above: Performed By: #### C MP, LIPID #### [facility] [address] [place], [place] [address] Taras Cathi VLDL CALC 29.2 mg/dL Normal [facility] Comment on above: Performed By: #### C MP, LIPID #### [facility] [address] [place], [place] [address] Taras Cathi PROF 14(COMP METB)on 020 Albumin [Mass/Vol] 4.2 g/dL Normal 3.5-5.0 [facility] Comment on above: Performed By: #### C MP, LIPID #### [facility] [address] [place], [place] [address] Taras Cathi Albumin/Globulin [Mass ratio] 1.3 {ratio} Normal [facility] Comment on above: Performed By: #### C MP, LIPID #### [facility] [address] [place], [place] [address] Taras Cathi ALP [Catalytic activity/Vol] 66 U/L Normal 38-126 [facility] Comment on above: Performed By: #### C MP, LIPID #### [facility] [address] [place], [place] [address] Taras Cathi ALT [Catalytic activity/Vol] 66 U/L Normal 21-72 [facility] Comment on above: Performed By: #### C MP, LIPID #### [facility] [address] [place], [place] [address] Taras Cathi Anion gap [Moles/Vol] 11.4 mmol/L Normal [facility] Comment on above: Performed By: #### C MP, LIPID #### [facility] [address] [place], [place] [address] Taras Cathi AST [Catalytic activity/Vol] 31 U/L Normal 17-59 [facility] Comment on above: Performed By: #### C MP, LIPID #### [facility] [address] [place] [address] Taras Cathi Bilirubin Ql (U) 0.8 mg/dL Normal 0.2-1.3 [facility] Comment on above: Performed By: #### C MP, LIPID #### [facility] [address] [place] [address] Taras Cathi Calcium [Mass/Vol] 9.7 mg/dL Normal 8.4-10.2 [facility] Comment on above: Performed By: #### C MP, LIPID #### [facility] [address] [place] [address] Taras Cathi Chloride [Moles/Vol] 101 mmol/L Normal 98-107 [facility] Comment on above: Performed By: #### C MP, LIPID #### [facility] [address] [place] [address] Taras Cathi CO2 [Moles/Vol] 29.1 mmol/L Normal 22.0-30.0 [facility] Comment on above: Performed By: #### C MP, LIPID #### [facility] [address] [place] [address] Taras Cathi Creatinine [Mass/Vol] 0.98 mg/dL Normal 0.66-1.25 [facility] Comment on above: Performed By: #### C MP, LIPID #### [facility] [address] [place], [place] [address] Taras Cathi EGFR-AF [place] >60 Normal >=60 [facility] Comment on above: Performed By: #### C MP, LIPID #### [facility] [address] [place], [place] [address] Taras Cathi EGFR-NON AF [place] >60 Normal >=60 [facility] Comment on above: Performed By: #### C MP, LIPID #### [facility] [address] [place] [address] Taras Cathi Globulin (S) [Mass/Vol] 3.3 g/dL Normal [facility] Comment on above: Performed By: #### C MP, LIPID #### [facility] [address] [place], [place] [address] Taras Cathi Glucose [Mass/Vol] 248 mg/dL Critically high 74-106 [facility] Comment on above: Performed By: #### C MP, LIPID #### [facility] [address] [place], [place] [address] Taras Cathi Potassium [Moles/Vol] 4.5 mmol/L Normal 3.4-5.0 [facility] Comment on above: Performed By: #### C MP, LIPID #### [facility] [address] [place], [place] [address] Taras Cathi Protein [Mass/Vol] 7.5 g/dL Normal 6.1-8.2 [facility] Comment on above: Performed By: #### C MP, LIPID #### [facility] [address] [place], [place] [address] Taras Cathi Sodium [Moles/Vol] 137 mmol/L Normal 137-145 [facility] Comment on above: Performed By: #### C MP, LIPID #### [facility] [address] [place], [place] [address] Taras Cathi Urea nitrogen [Mass/Vol] 13.0 mg/dL Normal 9.0-20.0 [facility] Comment on above: Performed By: #### C MP, LIPID #### [facility] [address] [id number] Taras Cathi Urea nitrogen/Creatinine [Mass ratio] 13.3 mg/mg Normal [facility] Comment on above: Performed By: #### C MP, LIPID #### [facility] [address] [place], [place] [address] Taras Cathi Vital Signs Date Time Vital Sign Value Performing Clinician Norberto garcia 11-30-2023 08:39-0400 Diastolic blood pressure 95 mm[Hg] Rajat Zeng [facility] [place] 11-30-2023 08:39-0400 Mean blood pressure 113 mm[Hg] Rajat Mourany [facility] [place] 11-30-2023 08:39-0400 Systolic blood pressure 149 mm[Hg] Rajat Mourany [facility] [place] 11-30-2023 08:31-0400 Blood Pressure Location Rajat Mourany [facility] [place] 11-30-2023 08:31-0400 Diastolic blood pressure 102 mm[Hg] Rajat Mourany [facility] Surgery [place] 11-30-2023 08:31-0400 Heart rate 86 /min Rajat Mourany [facility] 11-30-2023 08:31-0400 Respiratory rate 16 /min Rajat Mourany [facility] Surgery [place] 11-30-2023 08:31-0400 Systolic blood pressure 167 mm[Hg] Rajat Mourany [facility] 10-26-2023 10:10-0500 Blood Pressure Location Rajat Mourany [facility] 10-26-2023 10:10-0500 Diastolic blood pressure 98 mm[Hg] Rajat Mourany [facility] [place] 10-26-2023 10:10-0500 Heart rate 88 /min Rajat Mourany [facility] [place] 10-26-2023 10:10-0500 Respiratory rate 18 /min Rajat Mourany [facility] [place] 10-26-2023 10:10-0500 Systolic blood pressure 142 mm[Hg] Rajat Mourany [facility] [place] Encounters Encounter Date Encounter Type Care Provider Facility Start: 05-14-2025 End: 05-14-2025 ambulatory PASQUALE A LEENA Facility: [facility] Start: 04-07-2025 End: 04-07-2025 ambulatory PASQUALE A LEENA Facility: [facility] Start: 01-13-2025 End: 01-13-2025 ambulatory PASQUALE A LEENA Facility: [facility] Start: 10-14-2024 End: 10-14-2024 Lab Drop off PASQUALE A LEENA [facility] Start: 10-14-2024 End: 10-14-2024 ambulatory PASQUALE A LEENA Facility: [facility] Start: 08-15-2024 End: 08-15-2024 ambulatory PASQUALE A LEENA Facility: [facility] Start: 07-10-2024 End: 07-10-2024 Lab Drop off PASQUALE A LEENA [facility] Start: 07-10-2024 End: 07-10-2024 ambulatory PASQUALE A LEENA Facility: [facility] Start: 05-15-2024 End: 05-15-2024 ambulatory PASQUALE A LEENA Facility: [facility] Start: 04-15-2024 End: 04-15-2024 ambulatory PASQUALE A LEENA Facility: [facility] Start: 04-09-2024 End: 04-09-2024 ambulatory PASQUALE A LEENA Facility: [facility] Start: 03-18-2024 End: 03-18-2024 ambulatory PASQUALE A LEENA Facility: [facility] Start: 02-21-2024 End: 02-21-2024 Lab Drop off PASQUALE A LEENA [facility] Start: 02-21-2024 End: 02-21-2024 ambulatory PASQUALE A LEENA Facility: [facility] Start: 02-19-2024 End: 02-19-2024 ambulatory PASQUALE A LEENA Facility[facility] [place] Start: 12-12-2023 ambulatory PASQUALE A LEENA Facili ty:[facility] Start: 11-30-2023 End: 11-30-2023 ambulatory Rajat E. Mourany Facility:[facility] Start: 11-30-2023 End: 11-30-2023 Patient encounter procedure Rajat Brownlee. Papitoy [facility] Start: 11-02-2023 End: 11-02-2023 ambulatory Rajat E. Mourany Facility:[facility] Start: 11-02-2023 End: 11-02-2023 Patient encounter procedure Rajat Brownlee. [facility] Start: 10-26-2023 ambulatory Rajat Mourany Facility:[facility] Start: 10-26-2023 End: 10-26-2023 ambulatory Rajat E. Mourany Facility:[facility] Start: 10-26-2023 End: 10-26-2023 Patient encounter procedure Rajat Kem. Pedritostevey [facility] Start: 10-26-2023 End: 10-26-2023 ambulatory PASQUALE A LEENA Facility:[facility] Start: 10-18-2023 ambulatory Rajat Pedritourany Facility:[facility] Start: 06-22-2023 End: 06-22-2023 Emergency department patient visit TONY VENTURA [facility] Start: 09-13-2022 End: 09-14-2022 ambulatory MONICA DURÁN [facility] Start: 09-13-2022 End: 09-13-2022 Subsequent hospital visit by physician Garcia Dixon [facility] Comment on above: Arrived Start: 09-01-2022 End: 09-02-2022 ambulatory MONICA DURÁN [facility] Start: 09-01-2022 End: 09-01-2022 Subsequent hospital visit by physician Monica Durán [employer] Work Phone: [facility] Comment on above: Other hyperlipidemia ; Type 2 diabetes mellitus without complication, without long-term current use of insulin (HCC); Essential hypertension; Erectile dysfunction, unspecified erectile dysfunction type Start: 01-28-2021 End: 01-28-2021 Subsequent hospital visit by physician Monica Durán [employer] Work Phone: [facility] Start: 09-13-2020 End: 09-15-2020 Subsequent hospital visit by physician Hamida Nguyễn Dr Room 2 [facility] Comment on above: Right-sided chest pa in Start: 07-21-2020 End: 07-21-2020 Subsequent hospital visit by physician Monica [facility] Comment on above: Type 2 diabetes [place] itus without complication, without long- term current use of insulin (HCC); Essential hypertension Start: 05-21-2020 Encounter for genera l adult medical examination without abnormal findings [facility] Start: 05-18-2020 End: 05-19-2020 Patient encounter procedure NICOLETTE HOY Facility:[facility] Start: 11-24-2019 Patient encounter procedure NICOLETTE HOY Facility:[facility] Encounter for genera l adult medical examination without abnormal findings [facility] Procedures Date Procedure Procedure Detail Performing Clinician Start: 09-01-2022 Comprehensive metabo lic panel Monica Durán [employer] Work Phone: Start: 09-01-2022 Lipid panel Monica hopper [employer] Work Phone: Start: 09-13-2020 Radex ribs unilatera l 2 views Monica Durán Work Phone: Start: 07-21-2020 Basic metabolic pane l calcium total Monica Durán Work Phone: Start: 07-21-2020 Blood count complete automated Monica Durán Work Phone: Start: 07-21-2020 Lipid panel Monica hopper Work Phone: Start: 07-21-2020 Transferase alanine amino alt sgpt Monica Durán Work Phone: Start: 07-21-2020 Transferase aspartat e amino ast sgot Monica Durán Work Phone: Photorefractive keratoplasty Rajat Majorchris Structure of anterio r cruciate ligament of knee joint (body structure) Rajat Majorchris Plan of Treatment Date Care Activity Detail Author Start: 07-21-2025 ambulatory Ambulatory Facility:[facility] Start: 09-02-2023 Diabetic foot examination [facility] Start: 09-01-2023 Depression Monitoring Depression Mon itoring [facility] Start: 09-01-2023 GFR test (Diabetes, CKD 3-4, OR last GFR 15-59) GFR test (Diabetes, CKD 3-4, OR last GFR 15-59) [facility] Start: 09-01-2023 Hemoglobin A1c measurement A1C test (Diabetic or Prediabetic) [facility] Start: 09-01-2023 Lipid panel Lipids [facility] [employer] Start: 03-09-2023 End: 03-09-2023 Patient encounter procedure 03/09/2023 Office Visit Primary Care Monica Durán, [employer] [address] [place] [address] [facility] Start: 11-07-2022 Diabetic foot examination Diabetic f oot exam [facility] [employer] Start: 11-07-2022 Hemoglobin A1c measurement A1C test (Diabetic or Prediabetic) [facility] Start: 11-07-2022 Lipid panel Lipids [place] [employer] [facility] Start: 11-07-2022 Urine screening for protein Diabetic microalbuminuria test [facility] Start: 04-17-2022 Influenza vaccination Flu vaccine (# 1) [facility] Start: 01-28-2022 Creatinine measurement Creatinine mo [facility] Work Phone: Start: 01-28-2022 Potassium monitoring [facility]it [facility] Phone: Start: 08-17-2021 Diabetic foot examination Diabetic f oot exam [place], [place] Start: 07-21-2021 Creatinine measurement Creatinine mo nitoring [place] Start: 07-21-2021 HbA1c (Bld) [Mass fraction] A1C test (Diabetic or Prediabetic) [place] Start: 07-21-2021 Hemoglobin A1c measurement A1C test (Diabetic or Prediabetic) [facility] [employer] Phone: Start: 07-21-2021 Lipid panel Lipid screen [place], [place] Start: 07-21-2021 Potassium monitoring Potassium monit [place], [place] Start: 05-18-2021 Influenza vaccination Flu vacc ine (Season Ended) [facility] [employer] Phone: Start: 02-04-2021 End: 02-04-2021 Patient encounter procedure 02/04/2021 Office Visit Monica Herrmann, [employer] [address] [place] [address] [phone] [facility] Start: 11-15-2020 End: 11-15-2020 Office Visit 11/15/2020 Office Visit Monica Herrmann [employer] [address] [facility] [place] [address] [facility] Start: 09-22-2020 End: 09-22-2020 Office Visit 09/22/2020 Office Visit Monica Herrmann [employer] [address] [place] [address] [phone] [facility] Start: 08-20-2020 End: 08-20-2020 Office Visit 08/20/2020 Office Visit Monica Herrmann, [employer] [address] [place] [address] [phone] [facility] Start: 05-18-2020 Influenza vaccination Flu vaccine (# 1) [place], [place] Start: 2019 Diabetes screen Diabetes screen [place], [place] Start: 1998 DTaP/Tdap/Td vaccine (1 - Tdap) DTaP/Tdap/Td vaccine (1 - Tdap) [facility] Start: 1998 Hepatitis B vaccine (1 of 3 - Risk 3-dose series) Hepatitis B vaccine (1 of 3 - Risk 3-dose series) [facility] Start: 1997 Diabetic microalbumi nellie test Diabetic microalbuminuria test [place] Start: 1997 Diabetic retinal exam Diabetic retin al exam [facility] Start: 1997 Urine screening for protein Diabetic Alb to Cr ratio (uACR) test [facility] Start: 1994 HIV screening HIV screen [place], [place] Start: 1991 COVID-19 Vaccine (1) COVID-19 Vaccin e (1) [facility] Work Phone: Start: 1989 Diabetic retinal exam Diabetic retin al exam [place], [place] Start: 1989 Lipid panel Lipid screen [place], [place] Start: 1985 Pneumococcal 0-64 ye ars Vaccine (1 of 1 - PPSV23) Pneumococcal 0-64 years Vaccine (1 of 1 - PPSV23) [place] Start: 1980 Varicella vaccine (1 of 2 - 2-dose childhood series) Varicella vaccine (1 of 2 - 2-dose childhood series) [place] Start: 05-12-1980 COVID-19 Vaccine (#1) COVID-19 Vacci ne (#1) [facility] Start: 1979 Hepatitis C screening Hepatitis C sc reen [place] End: 07-21-2020 HbA1c (Bld) [Mass fraction] Hemoglobin A1C Lab Routine Type 2 diabetes mellitus without complication, without long-term current use of insulin (HCC) Essential hypertension 1 Occurrences starting 07/21/2020 until 07/21/2020 [place] Comment on above: 1 Occurrences starti ng 07/21/2020 until 07/21/2020 HbA1c (Bld) [Mass fraction] Hemoglobin A1C Lab Routine Type 2 diabetes mellitus without complication, without long-term current use of insulin (HCC) Essential hypertension 07/21/2020 4:29 PM EST [place] End: 09-01-2022 Hemoglobin A1c/Hemoglobin.total in Blood [facility] Work Phone: Comment on above: 1 Occurrences starti ng 09/01/2022 until 09/01/2022 Immunizations Immunization Date Immunization Notes Care Provider Stephan shipley 11-07-2021 pneumococcal polysaccharide vaccine, 23 valent Monica Luis Armando [employer] Work Phone: [facility] Comment on above: Result Comment: 2023: VIS DATE: 07/16/2019 Payers Date Payer Category Payer Unknown [id number] 2022 Unknown [id number] 1. [id number] 2021 Unknown [id number] 1. [id number] 1979 Unknown [id number] 2.16.84 0.1.304605.3.579.2.593 1979 Unknown [id number] 2.16.84 0.1.602270.3.579.2.593 1979 Unknown [id number] 2.16.8 40.1.214857.3.579.2.173 1979 Unknown [id number] 2.16.8 40.1.790191.3.579.2.173 1979 Unknown [id number] 2.16.8 40.1.258405.3.579.2.173 1979 Unknown [id number] 2.16.8 40.1.834147.3.579.2. 1979 Unknown [id number] 2.16.8 40.1.586505.3.579.2. 1979 Unknown [id number] 2.16.8 40.1.642864.3.579.2. 1979 Unknown [id number] 2.16.8 40.1.386994.3.579.2 1979 Unknown [id number] 2.16.8 40.1.853840.3.579.2. 1979 Unknown [id number] 2.16.8 40.1.584009.3.579.2 1979 Unknown [id number] 2.16.8 40.1.420934.3.579.2 1979 Unknown [id number] 2.16.8 40.1.023249.3.579.2 1979 Unknown [id number] 2.16.8 40.1.152510.3.579.2 1979 Unknown [id number] 2.16.8 40.1.617223.3.579.2. 1979 Unknown [id number] 2.16.8 40.1.095749.3.579.2 1979 Unknown [id number] 2.16.8 40.1.455763.3.579.2 1979 Unknown [id number] 2.16.8 40.1.830090.3.579.2 1979 Unknown [id number] 2.16.8 40.1.036925.3.579.2 1979 Unknown [id number] 2.16.8 40.1.406788.3.579.2 1979 Unknown [id number] 2.16.8 40.1.872089.3.579.2.727 1979 Unknown [id number] 2.16.8 40.1.476475.3.579.2.727 1979 Unknown [id number] 2.16.8 40.1.633571.3.579.2.727 1979 Unknown [id number] 2.16.8 40.1.955188.3.579.2.727 1979 Unknown [id number] 2.16.8 40.1.793510.3.579.2.727 1979 Unknown [id number] 2.16.8 40.1.475868.3.579.2.727 1979 Unknown [id number] 2.16.8 40.1.610807.3.579.2.727 1959 Self-pay [id number] 1959 Unknown [id number] 1. [id number] Social History Date Type Detail Facility Start: 07-21-2020 End: 01-28-2021 Tobacco smoking status NHIS Current every day smoker [facility] History of tobacco use Cigarette Smoker [place] Start: 07-21-2020 End: 01-28-2021 Tobacco use and exposure Never used [facility] [employer] [place] Start: 07-21-2020 End: 11-07-2021 History SDOH Financial 5 [place] Start: 07-21-2020 End: 11-07-2021 History SDOH Food Worry 1 [place], [place] Start: 07-21-2020 History SDOH Transpo rt Med 2 [place] Sex Assigned At Not on file [place] Start: 01-28-2021 Cigarettes smoked current (pack per day) - Reported [facility] [employer] Work Phone: Start: 1980 Sex Assigned At Male B ON [employer] Tobacco 2 packs a day To bacco Use:. [facility] [place] Tobacco smoking status No Smokin g Status Entered [facility] Sex Assigned At Male [facility] Start: 11-30-2023 Tobacco smoking status Heavy t obacco smoker (finding) [facility] Tobacco smoking status Never [facility] Start: 02-19-2024 End: 10-14-2024 Tobacco smoking status Ex-smoker (finding) [facility] Medical Equipment Procedure Code Equipment Code Equipment Origin al Text Equipment Identifier Dates Dispense suffici ent amount for indicated testing frequency plus additional to accommodate PRN testing needs. Dispense all needed supplies to include: monitor, strips, lancing device, lancets, control solutions, alcohol swabs. [id number] Start: 09-02-2022 Functional Status Date Assessment Result Facility 11-30-2023 Functional Status N/A [facility] 10-26-2023 Functional Status N/A [facility] Clinical Notes 09-13-2022 to 04-07-2025 Garcia Dixon, PT - 09/13/2022 6:15 PM ESTLaboratoryLaboratoryLaboratory Note Date & Type Note Facility 04-07-2025 Note Patient Education Endocrinology Blood Glucose Monitoring, Adult To manage your diabetes, you will need to keep track of your blood sugar (glucose). Check your blood glucose as often as told. Keep a record of your results over time. This can help you: ??? Know when to adjust your diabetes management plan with your health care provider. ??? See how food, exercise, illness, and medicines affect your blood glucose. ??? Know what your blood glucose is at any time. Your provider will set specific goals for your blood glucose levels. In many cases, these goals may be: ??? Before meals (preprandial): 80?130 mg/dL (4.4?7.2 mmol/L). ??? After meals (postprandial): below 180 mg/dL (10 mmol/L). ??? A1C level: less than 7%. Supplies needed: ??? Blood glucose meter. ??? Test strips for your meter. Each meter has its own strips. You must use the strips that came with your meter. ??? A needle to prick your finger (lancet). Do not use a lancet more than once. ??? A device that holds the lancet (lancing device). ??? A journal or logbook to write down your results. How to check your blood glucose Checking your blood glucose 1. Wash your hands with soap and water for at least 20 seconds. 2. Prick the side of your finger with the lancet. Do not prick the tip of your finger. Do not use the same finger more than once. 3. Gently rub the finger until a small drop of blood appears. 4. Follow the instructions that came with the meter about how to insert the test strip, apply blood to the strip, and use the meter. 5. Write down your result and any notes. Using alternative sites Some meters let you use other areas of your body (alternative sites) to test your blood. The most common places are the forearm, the thigh, and the palm of your hand. Alternative sites may not be as accurate as your fingers. The result you get may also be delayed. Use the finger only, and do not use alternative sites, if: ??? You think you have low blood glucose (hypoglycemia). ??? You sometimes do not know that your blood glucose is getting low (hypoglycemia unawareness). General tips and recommendations Blood glucose log ??? Write down the result each time you check your blood glucose. Note anything that may be affecting your blood glucose. This can help you and your provider: ? Look for patterns over time. ? Adjust your management plan as needed. ??? Check if your meter has an emeterio or lets you download your records to a computer. Most meters keep a record of glucose readings in the meter. If you have type 1 diabetes: ??? You may need to check your blood glucose 4 or more times a day. Check your blood glucose as often as told by your provider. This may include: ? Before each meal and snack. ? Two hours after a meal. ? Before bedtime. ? If you have symptoms of hypoglycemia. ? After treating your hypoglycemia. ? Before doing things that have a risk of injury, such as driving or using machinery. ? Before and after exercise. ? Between 2:00 a.m. and 3:00 a.m., as told. ??? You may need to check your blood glucose more often, such as up to 6?10 times a day, if: ? You have diabetes that is not well controlled. ? You are ill. ? You have a history of severe hypoglycemia. ? You have hypoglycemia unawareness. If you have type 2 diabetes: ??? You may need to check your blood glucose 2 or more times a day. Check your blood glucose as often as told by your provider. This may include: ? Before and after exercise. ? Before doing things that have a risk of injury, such as driving or using machinery. ??? You may need to check your blood glucose more often if: ? Your medicine is being adjusted. ? Your diabetes is not well controlled. ? You are ill. General tips ??? Make sure you always have your supplies with you. ??? After you use a few boxes of test strips, adjust (calibrate) your blood glucose meter. Follow the instructions that came with your meter. ??? If you have questions or need help, all blood glucose meters have a 24-hour hotline phone number that you can call. Also contact your provider with any questions or concerns. Where to find more information ??? The [place] [employer]: diabetes.org ??? The Association of [employer] Education Specialists: diabeteseducator.org Contact a health care provider if: ??? Your blood glucose is at or above 240 mg/dL (13.3 mmol/L) for 2 days in a row. ??? You have been sick or have had a fever for 2 days or longer and are not getting better. ??? You have any of these problems for more than 6 hours: ? You cannot eat or drink. ? You have nausea or vomiting. ? You have diarrhea. Get help right away if: ??? Your blood glucose is lower than 54 mg/dL (3 mmol/L). ??? You become confused, or you have trouble thinking clearly. ??? You have trouble breathing. ??? You have moderate to high ketone levels in y (more content not included)... [facility] 08-15-2024 Note Patient Education Cardiovascular Managing Your Hypertension Hypertension, also called high blood pressure, is when the force of the blood pressing against the donaldson of the arteries is too strong. Arteries are blood vessels that carry blood from your heart throughout your body. Hypertension forces the heart to work harder to pump blood and may cause the arteries to become narrow or stiff. Understanding blood pressure readings A blood pressure reading includes a higher number over a lower number: ??? The first, or top, number is called the systolic pressure. It is a measure of the pressure in your arteries as your heart beats. ??? The second, or bottom number, is called the diastolic pressure. It is a measure of the pressure in your arteries as the heart relaxes. For most people, a normal blood pressure is below 120/80. Your personal target blood pressure may vary depending on your medical conditions, your age, and other factors. Blood pressure is classified into four stages. Based on your blood pressure reading, your health care provider may use the following stages to determine what type of treatment you need, if any. Systolic pressure and diastolic pressure are measured in a unit called millimeters of mercury (mmHg). Normal ??? Systolic pressure: below 120. ??? Diastolic pressure: below 80. Elevated ??? Systolic pressure: 120?129. ??? Diastolic pressure: below 80. Hypertension stage 1 ??? Systolic pressure: 130?139. ??? Diastolic pressure: 80?89. Hypertension stage 2 ??? Systolic pressure: 140 or above. ??? Diastolic pressure: 90 or above. How can this condition affect me? Managing your hypertension is very important. Over time, hypertension can damage the arteries and decrease blood flow to parts of the body, including the brain, heart, and kidneys. Having untreated or uncontrolled hypertension can lead to: ??? A heart attack. ??? A stroke. ??? A weakened blood vessel (aneurysm). ??? Heart failure. ??? Kidney damage. ??? Eye damage. ??? Memory and concentration problems. ??? Vascular dementia. What actions can I take to manage this condition? Hypertension can be managed by making lifestyle changes and possibly by taking medicines. Your health care provider will help you make a plan to bring your blood pressure within a normal range. You may be referred for counseling on a healthy diet and physical activity. Nutrition ??? Eat a diet that is high in fiber and potassium, and low in salt (sodium), added sugar, and fat. An example eating plan is called the DASH diet. DASH stands for Dietary Approaches to Stop Hypertension. To eat this way: ? Eat plenty of fresh fruits and vegetables. Try to fill one-half of your plate at each meal with fruits and vegetables. ? Eat whole grains, such as whole-wheat pasta, brown rice, or whole-grain bread. Fill about one-fourth of your plate with whole grains. ? Eat low-fat dairy products. ? Avoid fatty cuts of meat, processed or cured meats, and poultry with skin. Fill about one-fourth of your plate with lean proteins such as fish, chicken without skin, beans, eggs, and tofu. ? Avoid pre-made and processed foods. These tend to be higher in sodium, added sugar, and fat. ??? Reduce your daily sodium intake. Many people with hypertension should eat less than 1,500 mg of sodium a day. Lifestyle ??? Work with your health care provider to maintain a healthy body weight or to lose weight. Ask what an ideal weight is for you. ??? Get at least 30 minutes of exercise that causes your heart to beat faster (aerobic exercise) most days of the week. Activities may include walking, swimming, or biking. ??? Include exercise to strengthen your muscles (resistance exercise), such as weight lifting, as part of your weekly exercise routine. Try to do these types of exercises for 30 minutes at least 3 days a week. ??? Do not use any products that contain nicotine or tobacco. These products include cigarettes, chewing tobacco, and vaping devices, such as e-cigarettes. If you need help quitting, ask your health care provider. ??? Control any long-term (chronic) conditions you have, such as high cholesterol or diabetes. ??? Identify your sources of stress and find ways to manage stress. This may include meditation, deep breathing, or making time for fun activities. Alcohol use ??? Do not drink alcohol if: ? Your health care provider tells you not to drink. ? You are , may be , or are planning to become . ??? If you drink alcohol: ? Limit how much you have to: ? 0?1 drink a day for women. ? 0?2 drinks a day for men. ? Know how much alcohol is in your drink. In the [place] one drink equals one 12 oz bottle of beer (355 mL), one 5 oz glass of wine (148 mL), or one 1? oz glass of hard liquor (44 mL). Medicines Your health care provider may prescribe medicine if lifestyle changes are not enough (more content not included)... [facility] 07-10-2024 Note Patient Education Endocrinology Diabetes Mellitus and Nutrition, Adult When you have diabetes, or diabetes mellitus, it is very important to have healthy eating habits because your blood sugar (glucose) levels are greatly affected by what you eat and drink. Eating healthy foods in the right amounts, at about the same times every day, can help you: ??? Manage your blood glucose. ??? Lower your risk of heart disease. ??? Improve your blood pressure. ??? Reach or maintain a healthy weight. What can affect my meal plan? Every person with diabetes is different, and each person has different needs for a meal plan. Your health care provider may recommend that you work with a dietitian to make a meal plan that is best for you. Your meal plan may vary depending on factors such as: ??? The calories you need. ??? The medicines you take. ??? Your weight. ??? Your blood glucose, blood pressure, and cholesterol levels. ??? Your activity level. ??? Other health conditions you have, such as heart or kidney disease. How do carbohydrates affect me? Carbohydrates, also called carbs, affect your blood glucose level more than any other type of food. Eating carbs raises the amount of glucose in your blood. It is important to know how many carbs you can safely have in each meal. This is different for every person. Your dietitian can help you calculate how many carbs you should have at each meal and for each snack. How does alcohol affect me? Alcohol can cause a decrease in blood glucose (hypoglycemia), especially if you use insulin or take certain diabetes medicines by mouth. Hypoglycemia can be a life-threatening condition. Symptoms of hypoglycemia, such as sleepiness, dizziness, and confusion, are similar to symptoms of having too much alcohol. ??? Do not drink alcohol if: ? Your health care provider tells you not to drink. ? You are , may be , or are planning to become . ??? If you drink alcohol: ? Limit how much you have to: ? 0?1 drink a day for women. ? 0?2 drinks a day for men. ? Know how much alcohol is in your drink. In the [place] one drink equals one 12 oz bottle of beer (355 mL), one 5 oz glass of wine (148 mL), or one 1? oz glass of hard liquor (44 mL). ? Keep yourself hydrated with water, diet soda, or unsweetened iced tea. Keep in mind that regular soda, juice, and other mixers may contain a lot of sugar and must be counted as carbs. What are tips for following this plan? Reading food labels ??? Start by checking the serving size on the Nutrition Facts label of packaged foods and drinks. The number of calories and the amount of carbs, fats, and other nutrients listed on the label are based on one serving of the item. Many items contain more than one serving per package. ??? Check the total grams (g) of carbs in one serving. ??? Check the number of grams of saturated fats and trans fats in one serving. Choose foods that have a low amount or none of these fats. ??? Check the number of milligrams (mg) of salt (sodium) in one serving. Most people should limit total sodium intake to less than 2,300 mg per day. ??? Always check the nutrition information of foods labeled as low-fat or nonfat. These foods may be higher in added sugar or refined carbs and should be avoided. ??? Talk to your dietitian to identify your daily goals for nutrients listed on the label. Shopping ??? Avoid buying canned, pre-made, or processed foods. These foods tend to be high in fat, sodium, and added sugar. ??? Shop around the outside edge of the grocery store. This is where you will most often find fresh fruits and vegetables, bulk grains, fresh meats, and fresh dairy products. Cooking ??? Use low-heat cooking methods, such as baking, instead of high-heat cooking methods, such as deep frying. ??? Cook using healthy oils, such as olive, canola, or sunflower oil. ??? Avoid cooking with butter, cream, or high-fat meats. Meal planning ??? Eat meals and snacks regularly, preferably at the same times every day. Avoid going long periods of time without eating. ??? Eat foods that are high in fiber, such as fresh fruits, vegetables, beans, and whole grains. ??? Eat 4?6 oz (112?168 g) of lean protein each day, such as lean meat, chicken, fish, eggs, or tofu. One ounce (oz) (28 g) of lean protein is equal to: ? 1 oz (28 g) of meat, chicken, or fish. ? 1 egg. ? ? cup (62 g) of tofu. ??? Eat some foods each day that contain healthy fats, such as avocado, nuts, seeds, and fish. What foods should I eat? Fruits Berries. Apples. Oranges. Peaches. Apricots. Plums. Grapes. Mangoes. Papayas. Pomegranates. Kiwi. Cherries. Vegetables Leafy greens, including lettuce, spinach, kale, chard, davi greens, mustard greens, and cabbage. Beets. Cauliflower. Broccoli. Carrots. Green beans. Tomatoes. Peppers. Onions. Cucumbers. [place] sprouts. Grains Whole grains, such as whole-wheat or whole- (more content not included)... [facility] 03-18-2024 Note Patient Education Emergency Medicine Heart Attack A heart attack occurs when blood and oxygen supply to the heart is cut off. A heart attack can cause damage to the heart that cannot be fixed. A heart attack is also called a myocardial infarction, or MD. If you think you are having a heart attack, do not wait to see if the symptoms will go away. Get medical help right away. What are the causes? This condition may be caused by: ? A fatty substance (plaque) in the blood vessels (arteries). This can block the flow of blood to the heart. ? A blood clot in the blood vessels that go to the heart. The blood clot blocks blood flow. ? An abnormal heartbeat. ? Some diseases, such as problems in red blood cells (anemia)orproblems in breathing (respiratory failure). ? Tightening (spasm) of a blood vessel that cuts off blood to the heart. ? A tear in a blood vessel of the heart. Other causes may include: ? Using drugs such as cocaine or methamphetamine. ? Low blood pressure. What increases the risk? ? Aging. The risk gets higher as you get older. ? Having a personal or family history of chest pain, heart attack, stroke, or narrowing of the arteries in the legs, arms, head, or stomach (peripheral vascular disease). ? Having taken chemotherapy or immune-suppressing medicines. ? Being male. ? Being overweight or obese. ? Having any of these conditions: ? High blood pressure. ? High cholesterol. ? Diabetes. ? Making lifestyle choices such as: ? Drinking too much alcohol. ? Not getting regular exercise. ? Smoking. What are the signs or symptoms? ? Chest pain. It may feel like: ? Crushing or squeezing. ? Tightness, pressure, fullness, or heaviness. ? Pain in the arm, neck, jaw, back, or upper body. ? Heartburn. ? Upset stomach (indigestion). ? Shortness of breath. ? Feeling like you may vomit (nauseous). ? Cold sweats. ? Sudden light-headedness, dizziness, or passing out. ? Feeling tired. How is this treated? A heart attack must be treated as soon as possible. Treatment may include: ? Medicines to: ? Break up or dissolve blood clots. ? Thin your blood and help prevent blood clots. ? Treat blood pressure. ? Improve blood flow to the heart. ? Reduce pain. ? Reduce cholesterol. ? Procedures to widen a blocked artery and keep it open. ? Open heart surgery. ? Making your heart strong again (cardiac rehabilitation) through exercise, education, and counseling. Follow these instructions at home: Medicines ? Take [id number] and prescription medicines only as told by your doctor. ? Do not take these medicines unless your doctor says it is okay: ? NSAIDs, such as ibuprofen, naproxen, or celecoxib. ? Any vitamins or supplements. ? Hormone replacement therapy that has estrogen with or without progestin. ? If you are taking blood thinners: ? Talk with your doctor before taking any medicines that have aspirin or NSAIDs, such as ibuprofen. ? Take medicines exactly as told. Take them at the same time each day. ? Avoid doing things that could hurt or bruise you. Take action to prevent falls. ? Wear an alert bracelet or carry a card that shows you are taking blood thinners. Lifestyle ? Do not smoke or use any products that contain nicotine or tobacco. If you need help quitting, ask your doctor. ? Avoid secondhand smoke. ? Exercise regularly. Ask your doctor about a cardiac rehab program. ? Eat heart-healthy foods. Your doctor will tell you what foods to eat. ? Stay at a healthy weight. ? Learn ways to lower your stress level. ? Do not use illegal drugs. Alcohol use ? Do not drink alcohol if: ? Your doctor tells you not to drink. ? You are , may be , or are planning to become . ? If you drink alcohol: ? Limit how much you have to: ? 0?1 drink a day for women. ? 0?2 drinks a day for men. ? Know how much alcohol is in your drink. In the [place] one drink equals one 12 oz bottle of beer (355 mL), one 5 oz glass of wine (148 mL), or one 1? oz glass of hard liquor (44 mL). General instructions ? Work with your doctor to treat other problems you may have, such as diabetes or high blood pressure. ? Get screened for depression. Get treatment if needed. ? Keep your vaccines up to date. Get the flu shot (influenza vaccine) every year. ? Keep all follow-up visits. Contact a doctor if: ? You feel very sad. ? You have trouble doing your daily activities. ? You get light-headed or dizzy. Get help right away if: ? You have sudden, unexplained discomfort in your chest, arms, back, neck, jaw, or upper body. ? You have shortness of breath. ? You have sudden sweating or clammy skin. ? You feel like you may vomit or you vomit. ? You feel tired or weak. ? You feel your heart beating fast. ? You feel your heart skipping beats. ? You (more content not included)... [facility] 10-26-2023 Hospital Discharg e instructions Patient Education 10/26/2023 10:57:52 Obesity, Adult Obesity, Adult Obesity is the condition of having too much total body fat. Being overweight or obese means that your weight is greater than what is considered healthy for your body size. Obesity is determined by a measurement called BMI (body mass index). BMI is an estimate of body fat and is calculated from height and weight. For adults, a BMI of 30 or higher is considered obese. Obesity can lead to other health concerns and major illnesses, including: Stroke. Coronary artery disease (CAD). Type 2 diabetes. Some types of cancer, including cancers of the colon, breast, uterus, and gallbladder. High blood pressure (hypertension). High cholesterol. Gallbladder stones. Obesity can also contribute to: Osteoarthritis. Sleep apnea. Infertility problems. What are the causes? Common causes of this condition include: Eating daily meals that are high in calories, sugar, and fat. Drinking high amounts of sugar-sweetened beverages, such as soft drinks. Being born with genes that may make you more likely to become obese. Having a medical condition that causes obesity, including: ?Hypothyroidism. ?Polycystic ovarian syndrome (PCOS). ?Binge-eating disorder. ?[place] syndrome. Taking certain medicines, such as steroids, antidepressants, and seizure medicines. Not being physically active (sedentary lifestyle). Not getting enough sleep. What increases the risk? The following factors may make you more likely to develop this condition: Having a family history of obesity. Living in an area with limited access to: ?[place], recreation centers, or sidewalks. ?Healthy food choices, such as grocery stores and [employer]. What are the signs or symptoms? The main sign of this condition is having too much body fat. How is this diagnosed? This condition is diagnosed based on: Your BMI. If you are an adult with a BMI of 30 or higher, you are considered obese. Your waist circumference. This measures the distance around your waistline. Your skinfold thickness. Your health care provider may gently pinch a fold of your skin and measure it. You may have other tests to check for underlying conditions. How is this treated? Treatment for this condition often includes changing your lifestyle. Treatment may include some or all of the following: Dietary changes. This may include developing a healthy meal plan. Regular physical activity. This may include activity that causes your heart to beat faster (aerobic exercise) and strength training. Work with your health care provider to design an exercise program that works for you. Medicine to help you lose weight if you are unable to lose one pound a week after six weeks of healthy eating and more physical activity. Treating conditions that cause the obesity (underlying conditions). Surgery. Surgical options may include gastric banding and gastric bypass. Surgery may be done if: ?Other treatments have not helped to improve your condition. ?You have a BMI of 40 or higher. ?You have life-threatening health problems related to obesity. Follow these instructions at home: Eating and drinking Follow recommendations from your health care provider about what you eat and drink. Your health care provider may advise you to: ?Limit fast food, sweets, and processed snack foods. ?Choose low-fat options, such as low-fat milk instead of whole milk. ?Eat five or more servings of fruits or vegetables every day. ?Choose healthy foods when you eat out. ?Keep low-fat snacks available. ?Limit sugary drinks, such as soda, fruit juice, sweetened iced tea, and flavored milk. Drink enough water to keep your urine pale yellow. Do not follow a fad diet. Fad diets can be unhealthy and even dangerous. Other healthful choices include: ?Eat at home more often. This gives you more control over what you eat. ?Learn to read food labels. This will help you understand how much food is considered one serving. ?Learn what a healthy serving size is. Physical activity Exercise regularly, as told by your health care provider. ?Most adults should get up to 150 minutes of moderate-intensity exercise every week. ?Ask your health care provider what types of exercise are safe for you and how often you should exercise. Warm up and stretch before being active. Cool down and stretch after being active. Rest between periods of activity. Lifestyle Work with your health care provider and a dietitian to set a weight-loss goal that is healthy and reasonable for you. Limit your screen time. Find ways to reward yourself that do not involve food. Do not drink alcohol if: ?Your health care provider tells you not to drink. ?You are , may be , or are planning to become . If you drink alcohol: ?Limit how much you have to: ?0 1 drink a day for women. ?0 2 drinks a day for men. ?Know how much alcohol is in your drink. In the [place] one drink equals one 12 oz bottle of beer (355 mL), one 5 oz glass of wine (148 mL), or one 1 oz glass of hard liquor (44 mL). General instructions Keep a weight-loss journal to keep track of the food you eat and how much exercise you get. Take qvrd-ezp-lnmmnfk and prescription medicines only as told by your health care provider. Take vitamins and supplements only as told by your health care provider. Consider joining a support group. Your health care provider may be able to recommend a support group. Pay attention to your mental health as obesity can lead to depression or self esteem issues. Keep all follow-up visits. This is important. Contact a health care provider if: You are unable to meet your weight-loss goal after six weeks of dietary and lifestyle changes. You have trouble breathing. Summary Obesity is the condition of having too much total body fat. Being overweight or obese means that your weight is greater than what is considered healthy for your body size. Work with your health care provider and a dietitian to set a weight-loss goal that is healthy and reasonable for you. Exercise regularly, as told by your health care provider. Ask your health care provider what types of exercise are safe for you and how often you should exercise. This information is not intended to replace advice given to you by your health care provider. Make sure you discuss any questions you have with your health care provider. Document Revised: 04/11/2022 Document Reviewed: 04/11/2022 [employer] Patient Education 2022 [employer]. [facility] General Surgery [place] 10 09-13-2022 History of Presen t illness Narrative [facility] Physical Therapy Orthotic Fitting Plan of Care Date: 09/13/2022 Patient Name: Sultana Joshua : 1980 (41 y.o.) CSN #: [id number] Referring Physician: Monica Durán, JOHN * Diagnosis: Diabetes mellitus type II, E11.9 Reason for Referral: Patient reports he feels like he's walking on the outside of his feet. Hx of diabetes, but denies loss of sensation. Denies foot pain. Objective Assessment: Patient stands with B high arches, R worse than Left, B calcaneal inversion 1-2*. B windlass mechanism is intact. Equal B leg length, B plantar flexed 1st ray. Patient to benefit from custom orthotics to improve gait pattern and improve shock absorption to decrease stress on LE's and back. Treatment: [x] Fitting for custom orthotics [x] Gait and foot analysis [] Other: Instructed Patient: [x] Proper fitting and follow up visit. [] Other: Treatment Goals: [] Met [] Not Met 09/13/2022 [x] Patient will be fitted for custom orthotics to be issued at a later date. Treatment Plan: [x] Assessment for and fitting of custom orthotics. Rehab Potential: [] Poor [] Fair [x] Good [] Excellent If there are any questions regarding plan of care, please do not hesitate to contact the center. Thank you for your referral. Therapist s Signature: Garcia Dixon PT, DPT Date: 09/13/2022 To be completed by the referring physicians By signing below, I agree to the above treatment plan. Physician s Signature: Date: 09/13/2022 documented in this encounter [facility] Work Phone: Evaluation + Plan note Future Appointments Appointment Date:11/02/2023 08:40:00 AM Scheduled Provider:Rajat Zeng MD Location:[facility] Appointment Type:[address] Evaluation + Plan note Future Appointments Appointment Date:11/30/2023 08:40:00 AM Scheduled Provider:Rajat Zeng MD Location:[facility] Appointment Type:[address] Evaluation + Plan note Future Appointments Appointment Date:03/18/2024 07:20:00 AM Scheduled Provider:PASQUALE STERN CNP Location:[facility] Appointment Type: Open Future Scheduled [id number] 12/07/23 [facility] Evaluation + Plan note Future Appointments Appointment Date:08/15/2024 08:00:00 AM Scheduled Provider:PASQUALE STERN CNP Location:[facility] Appointment Type:FM Open Future Scheduled [id number] 12/07/23 [facility] Evaluation + Plan note Future Appointments Appointment Date:01/13/2025 07:20:00 AM Scheduled Provider:PASQUALE STERN CNP Location:[facility] Appointment Type: Open Future Scheduled [id number] 12/07/23 [facility] Evaluation note Diagnosis Other hyperlipidemia Type 2 diabetes mellitus without complication, without long-term current use of insulin (HCC) Essential hypertension Unspecified essential hypertension Erectile dysfunction, unspecified erectile dysfunction type documented in this encounter [facility] [employer] Work Phone: Hospital course Narrative No data available for this section [facility] General Surgery [facility] Discharge instructions No data available for this section [facility] General Surgery [place] Progress note No data available for this section [facility] General Surgery [place] Assessments Diagnosis Type 2 diabetes mellitus without complication, without long-term current use of insulin (HCC) Essential hypertension Unspecified essential hypertension Diagnosis Right-sided chest pain Advance Directives No Advanced Directives Records FoundDocuments on File Type Date Recorded 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 Purpose Family History No Family History Records FoundNo Family History Records Found No data available for this section No data available for this section No data available for this section No data available for this section No Family History Records FoundNo Family History Records FoundNo Family History Records FoundNo Family History Records FoundNo Family History Records FoundNo Family History Records FoundNo Family History Records Found No data available for this section No Family History Records FoundNo Family History Records FoundNo Family History Records Found No data available for this section No Family History Records FoundNo Family History Records FoundNo Family History Records FoundNo Family History Records FoundNo Family History Records FoundNo Family History Records FoundNo Family History Records FoundNo Family History Records FoundNo Family History Records FoundNo Family History Records Found Additional Source Comments (unrecognized sect ion and content) No Status Records FoundNo Status Records FoundNo Status Records FoundNo Status Records FoundNo Status Records FoundNo Status Records FoundNo Status Records FoundNo Status Records FoundNo Status Records FoundNo Status Records FoundNo Status Records FoundNo Status Records FoundNo Status Records FoundNo Status Records FoundNo Status Records FoundNo Status Records FoundNo Status Records FoundNo Status Records FoundNo Status Records FoundNo Status Records FoundNo Status Records FoundNo Status Records Found INFORMATION SOURCE (unrecogn ized section and content) DATE CREATED AUTHOR 07/27/2020 [facility] DATE CREATED AUTHOR AUTHOR'S ORGANIZ ATION 06/25/2023 [facility] DATE CREATED AUTHOR AUTHOR'S ORGANIZ ATION 02/23/2024 [facility] DATE CREATED AUTHOR AUTHOR'S ORGANIZ ATION 03/19/2024 [facility] DATE CREATED AUTHOR AUTHOR'S ORGANIZ ATION 08/17/2024 [facility] DATE CREATED AUTHOR AUTHOR'S ORGANIZ ATION 10/16/2024 [facility] DATE CREATED AUTHOR AUTHOR'S ORGANIZ ATION 01/15/2025 [facility] DATE CREATED AUTHOR AUTHOR'S ORGANIZ ATION 04/09/2025 [facility] DATE CREATED AUTHOR AUTHOR'S ORGANIZ ATION 05/15/2025 [facility] Care Teams (unrecognized sec tion and content) [employer] Space Salesperson Relationship Specialty Start Date End Date Monica Durán, ADJUTANT GENERAL - PARTS SALESMAN [address] [place] [address] PCP - General Family Nurse Practitioner 07/21/20 [employer] Salesperson Relationship Specialty Start Date End Date Monica Durán, ADJUTANT GENERAL - PARTS SALESMAN [address] [place] [address] PCP - General Family Nurse Practitioner 07/21/20 FOR RECORDS PERTAINING TO PATIENTS WHO ARE OR HAVE BEEN ENROLLED IN A CHEMICAL DEPENDENCY/SUBSTANCEABUSE PROGRAM, SOME INFORMATION MAY BE OMITTED. This clinical summary was aggregated from multiple sources. Caution should be exercised in using it in the provision of clinical care. This summary normalizes information from multiple sources, and as a consequence, information in this document may materially change the coding, format and clinical context of patient data. In addition, data may be omitted in some cases. CLINICAL DECISIONS SHOULD BE BASED ON THE PRIMARY CLINICAL RECORDS. [facility]. provides no warranty or guarantee of the accuracy or completeness of information in this document.
--- NOTE | 2025-06-30 10:03 | XR_ITS ---
The [address] [address] Patient Name: SULTANA JASSO MRN: [id number] date: 1980 Sex: M Assigned Patient Location: [facility] Current Patient Location: [facility] Accession/Order Number: [id number] Exam Date: 06/30/2025 10:22 Report Date: 06/30/2025 10:53 At the request of: PURVI HARRY Procedure: XR shoulder LT min 2V LEFT SHOULDER - 3 views CLINICAL HISTORY: Pain In Left Shoulder for the past few weeks. No injury. COMPARISON: None AP, Y and Grashey views were obtained. There is no evidence of fracture or dislocation. There is minor spurring at the acromioclavicular joint. There are no significant soft tissue abnormalities. XR/XR shoulder LT min 2V IMPRESSION: NO ACUTE BONY FINDINGS. Impression dictated by: Cathi Goddard M.D. 06/30/2025 10:53 AM Dictation Location: [place] [address] Electronically authenticated by: [id number] Y Date: 06/30/2025 10:53
== END 2025-06-30 09:50 | disposition home or self-care (01) ==
PROVIDERS: PCP Nurse Practitioner Family; Visit Provider Nurse Practitioner
DX: M25.512 Pain in left shoulder (principal); E66.9 Obesity, unspecified; Z72.0 Tobacco use; Z68.36 Body mass index [BMI] 36.0-36.9, adult
CPT/HCPCS: 73030

== ENCOUNTER 2025-08-03 04:27 | Emergency (ER) | payer BC, SELFPAY ==
[2025-08-03 04:30] VITALS: BP 163/89; PULSE 110; TEMP 37.3; O2SAT 97; BMI 35.6
--- NOTE | 2025-08-03 04:41 | XR_ITS ---
The [address] [address] Patient Name: SULTANA JASSO MRN: [id number] date: 1980 Sex: M Assigned Patient Location: ED.MAIN Current Patient Location: Accession/Order Number: [id number] Exam Date: 08/03/2025 04:55 Report Date: 08/03/2025 08:24 At the request of: JAYME GRIGGS MD Procedure: XR lumbar spine 2-3V LUMBAR SPINE - 2 views COMPARISON: None CLINICAL DATA: Patient was lifting heavy items yesterday and now has nonradiating back pain. AP and lateral views were obtained. There are no acute fractures or displacement. There is minimal disc space narrowing at the lumbosacral junction. Mild endplate spurring is seen throughout. There is also minimal lower lumbar facet hypertrophy. The SI joints are intact and show mild sclerosis. No paraspinal soft tissue abnormalities are seen. XR/XR lumbar spine 2-3V IMPRESSION: MINOR DEGENERATIVE CHANGES. NO ACUTE BONY FINDINGS. Impression dictated by: Cathi Goddard M.D. 08/03/2025 8:24 AM Dictation Location: [place] [address] Electronically authenticated by: [id number] Y Date: 08/03/2025 08:24
--- NOTE | 2025-08-03 04:42 | ED.GENADUL1 ---
HPI HPI - General Adult General Chief complaint: Back Pain/Injury Stated complaint: BACK PAIN Time Seen by Provider: 08/03/25 04:38 Source: patient Mode of arrival: walk-in Limitations: no limitations History of Present Illness HPI narrative: 44-year-old male presents to the emergency department for bilateral lower back pain. It started tonight and was not precipitated by any fall or specific injury. He was, however, lifting some heavy items into a loft in his barn and he was on a ladder. Used ice and some ibuprofen and it did not help much so he came in here. No weakness or numbness in his legs. No dysuria or hematuria. Related Data Home Medications ?Medication ?Instructions ?Recorded ?Confirmed acetaminophen 325 mg capsule 650 mg PO DAILY 10/21/23 10/21/23 (Tylenol) amlodipine 10 mg tablet 10 mg PO DAILY 10/21/23 10/21/23 ascorbic acid (vitamin C) 500 mg 500 mg PO DAILY 10/21/23 10/21/23 tablet,extended release (C Complex) cholecalciferol (vitamin D3) 125 125 mcg PO DAILY 10/21/23 10/21/23 mcg (5,000 unit) tablet (Vitamin D3) citalopram 20 mg tablet 10 mg PO DAILY 10/21/23 10/21/23 enalapril maleate 2.5 mg tablet 2.5 mg PO Q24H 10/21/23 10/21/23 ibuprofen 400 mg tablet (IBU) 400 mg PO DAILY 10/21/23 10/21/23 metformin 1,000 mg tablet 1,000 mg PO BID 10/21/23 10/21/23 omeprazole 20 mg capsule,delayed 20 mg PO DAILY 10/21/23 10/21/23 release pioglitazone 45 mg tablet 45 mg PO DAILY 10/21/23 10/21/23 simvastatin 20 mg tablet 20 mg PO DAILY 10/21/23 10/21/23 sitagliptin phosphate 100 mg 100 mg PO DAILY 10/21/23 10/21/23 tablet (Januvia) vitamin B complex 1 tab PO DAILY 10/21/23 10/21/23 zinc gluconate 50 mg tablet 50 mg PO DAILY 10/21/23 10/21/23 Previous Rx's ?Medication ?Instructions ?Recorded cephalexin 500 mg capsule 500 mg PO QID 10 days #40 caps 02/04/24 mupirocin 2 % topical ointment 1 applic topical BID #15 grams 10/21/23 sulfamethoxazole 800 1 tab PO BID 7 days #14 tabs 10/21/23 mg-trimethoprim 160 mg tablet (Bactrim DS) snntuxfbbelwhyv-lyduaicgwawgnuw-NL 10 ml PO Q6H PRN cold symptoms 08/24/24 2 mg-30 mg-10 mg/5 mL oral syrup #200 mL (Bromfed DM) cefdinir 300 mg capsule 300 mg PO BID 10 days #20 caps 08/24/24 ibuprofen 800 mg tablet 800 mg PO Q8H PRN pain #20 tabs 08/03/25 methocarbamol 750 mg tablet 750 mg PO Q6H PRN pain #20 tabs 08/03/25 Allergies Allergy/AdvReac Type Severity Reaction Status Date / Time No Known Drug Allergies Allergy Verified 08/03/25 04:35 Opioid HPI Opioid Management Most Recent Opioid Data: Last Pain Scale 6 Today, 04:38 Review of Systems ROS Narrative A ten point review of systems is negative except as noted above. PFSH PFSH Social History Smoking status: Current every day smoker Little interest or pleasure in doing things: not at all Feeling down, depressed, or hopeless: not at all Exam Narrative Exam Narrative: Nurses note and vital signs reviewed General:The patient appears well and in no apparent distress.Patient is resting comfortably on cart. Skin:Warm, dry, no pallor noted.There is no rash noted. Head:Normocephalic, atraumatic Eye: Normal conjunctiva, no drainage Ears, Nose, Mouth, and Throat: oral mucosa is moist. Nares patent. Cardiovascular:Regular Rate and Rhythm Respiratory:Patient is in no distress, no accessory muscle use, lungs are clear to auscultation, no wheezing, rales or rhonchi Back: No bruise or rash or focal area of tenderness to palpation GI: Soft and nontender Musculoskeletal: The patient has no evidence of calf tenderness, no pitting edema, symmetrical pulses noted bilaterally Neurological:A&O, normal speech; muscle strength is intact in his lower extremities Psychiatric:Cooperative Constitutional Vital Signs, click to edit/add: Last Vital Signs Temp 99.2 F 08/03/25 04:30 Pulse 110 H 08/03/25 04:30 Resp 16 08/03/25 04:30 BP 163/89 H 08/03/25 04:30 Pulse Ox 97 08/03/25 04:30 O2 Del Method Room Air 08/03/25 04:30 Course Vital Signs Vital signs: Vital Signs Temperature 99.2 F 08/03/25 04:30 Pulse Rate 110 H 08/03/25 04:30 Respiratory Rate 16 08/03/25 04:30 Blood Pressure 163/89 H 08/03/25 04:30 Pulse Oximetry 97 08/03/25 04:30 Oxygen Delivery Method Room Air 08/03/25 04:30 Temperature 99.2 F 08/03/25 04:30 Pulse Rate 110 H 08/03/25 04:30 Respiratory Rate 16 08/03/25 04:30 Blood Pressure 163/89 H 08/03/25 04:30 Pulse Oximetry 97 08/03/25 04:30 Oxygen Delivery Method Room Air 08/03/25 04:30 Medical Decision Making MDM Narrative Medical decision making narrative: Urinalysis is negative. The blood sugars somewhat elevated, he forgot to take his Trulicity yesterday. Urinalysis shows no blood or evidence of UTI. He was given IM Toradol and Norflex and is feeling improved and is discharged home on ibuprofen and Robaxin. Treatment diagnosis and follow-up were discussed with the patient. Differential Diagnosis Differential Diagnosis: Lumbar strain, compression fracture, kidney stone Lab Data Lab results reviewed: Yes I reviewed the patient's lab results Labs: Lab Results 08/03/25 08/03/25 Range/Units 05:15 05:39 Urine Color Yellow (YELLOW) Urine Clarity Clear (CLEAR) Urine pH 5.5 (5.0-9.0) Ur Specific Cutler 1.010 (1.005-1.025) Urine Protein 30 A (NEG/TRACE) mg/dL Urine Glucose (UA) >=1000 A (NEGATIVE) mg/dL Urine Ketones 15 A (NEGATIVE) mg/dL Urine Occult Blood Negative (NEGATIVE) Urine Nitrite Negative (NEGATIVE) Urine Bilirubin Negative (NEGATIVE) Urine Urobilinogen 1.0 (0.2-1.0) EU/dL Ur Leukocyte Esterase Negative (NEGATIVE) Urine RBC 0-2 (0-2) #/HPF Urine WBC 0-2 A (NONE SEEN) #/HPF Ur Squamous Epith Cells Rare (NONE/RARE) #/LPF Urine Crystals None seen (None Seen) #/HPF Urine Bacteria None seen (NONE SEEN) #/HPF Urine Casts None seen (NONE SEEN) #/LPF Urine Mucus None seen (NONE SEEN) Ur Culture Indicated? No POC Glucose 317 H (74-106) mg/dL Imaging Data Lumbar x-ray: My impression: No acute findings Discharge Plan Discharge Chief Complaint: Back Pain/Injury Clinical Impression: Lumbar strain Patient Disposition: Home, Self-Care Time of Disposition Decision: 05:42 Condition: Good Mode of Transportation: Private Vehicle Prescriptions / Home Meds: New ibuprofen 800 mg tablet 800 mg PO Q8H PRN (Reason: pain) Qty: 20 0RF methocarbamol 750 mg tablet 750 mg PO Q6H PRN (Reason: pain) Qty: 20 0RF No Action mzlwlppwfuqvxdw-gwbmlcaek-HC [Bromfed DM] 2-30-10 mg/5 mL syrup 10 ml PO Q6H PRN (Reason: cold symptoms) Qty: 200 0RF cefdinir 300 mg capsule 300 mg PO BID 10 Days Qty: 20 0RF amlodipine 10 mg tablet 10 mg PO DAILY citalopram 20 mg tablet 10 mg PO DAILY enalapril maleate 2.5 mg tablet 2.5 mg PO Q24H metformin 1,000 mg tablet 1,000 mg PO BID pioglitazone 45 mg tablet 45 mg PO DAILY omeprazole 20 mg capsule,delayed release(DR/EC) 20 mg PO DAILY simvastatin 20 mg tablet 20 mg PO DAILY Januvia 100 mg tablet 100 mg PO DAILY ascorbic acid (vitamin C) [C Complex] 500 mg tablet extended release 500 mg PO DAILY cholecalciferol (vitamin D3) [Vitamin D3] 125 mcg (5,000 unit) tablet 125 mcg PO DAILY zinc gluconate 50 mg tablet 50 mg PO DAILY vitamin B complex Tablet 1 tab PO DAILY Patient Comments: 1000 mcg daily acetaminophen [Tylenol] 325 mg capsule 650 mg PO DAILY ibuprofen [IBU] 400 mg tablet 400 mg PO DAILY sulfamethoxazole-trimethoprim [Bactrim DS] 800-160 mg tablet 1 tab PO BID 7 Days Qty: 14 0RF cephalexin 500 mg capsule 500 mg PO QID 10 Days Qty: 40 0RF mupirocin 2 % ointment 1 applic topical BID Qty: 15 0RF Print Language: Hebrew Instructions: Low Back Strain (ED) Referrals: Angelina Urbano DATA REDUCTION TECHNICIAN [Primary Care Provider] - 1 week
--- OUTSIDE RECORDS SUMMARY | 2025-08-03 04:49 | XMS_ITS | CCD ---
Author Organization [facility] Care Team Providers Care Architectural Engineering Teacher Name Role Phone Monica Durán Primary Care Provider HOY, NICOLETTE Admitting Unavailable HOY, NICOLETTE Attending Unavailable HOY, NICOLETTE Consulting Unavailable HOY, NICOLETTE Attending Unavailable HOY, NICOLETTE Admitting Unavailable Luis Armando PARTS CLEANER - MATCH MAKERMonica Primary Care Provide r Luis Armando PARTS CLEANER - MATCH MAKERMonica Primary Care Provide r MONICA DURÁN Referring Unavailable MONICA DURÁN Primary Care Unavailable MONICA DURÁN Referring Unavailable MONICA DURÁN Primary Care Unavailable TONY VENTURA Attending Unavailable MONICA DURÁN Primary Care Unavailable OSMEL STERNY Margarita Primary Care Physician PASQUALE STERN Primary [...] Admitting Unavailable LEENA, PASQUALE A Attending Unavailable Lana, CRATE TIER Emily L Attending Unavailable Lana, CRATE TIER Emily L Admitting Unavailable Lana, Emily L Admitting Unavailable Lana, Emily L Attending Unavailable LEENA, PASQUALE A Attending Unavailable LEENA, PASQUALE A Admitting Unavailable Lana, Emily L Attending Unavailable Lana, Emily L Attending Unavailable Lana, Emily L Attending Unavailable LEENA, PASQUALE A Attending Unavailable Lana, Emily L Attending Unavailable Allergies Allergy ClassificationReported Allergen(s)Allergy TypeDate of OnsetReaction(s) Facility (5 sources)No Known Medication Allergies; Translations: [No Known Medication Allergies]Propensity to adverse reactions (disorder)[facility] Repository Medications Current Medications MedicationDrug Class(es)DatesSig (Normalized)Sig (Original)amLODIPine 10 mg oral tablet (11 sources)Dihydropyridine Calcium Channel BlockerStart: 01-61-4166khpv 1 tablet by mouth once dailyamLODIPine 10 mg Tab See Instructions, TAKE ONE TABLET BY MOUTH ONCE DAILY, # 90 tab(s), Refills(s)1, Pharmacy: [facility] 185, cm, 10/14/24 7:46:00 EST, Height/Length Dosing, 121.3, kg, 10/14/24 7:46:00 EST, Weight Dosing Start Date: 10/14/24 Status: OrderedStart: 06-18-2024 take 1 tablet by mouth once dailyamLODIPine 10 mg Tab 10 mg = 1 tab(s), Oral, Daily, # 90 tab(s), Refills(s) 1, Pharmacy: [facility] 185, cm, 05/15/24 7:36:00 EDT, Height/Length Dosing, 121.8, kg, 05/15/24 7:36:00 EDT, Weight Dosing Start Date: 06/18/24 Status: OrderedStart: 51-31-5255rqye 1 tablet by mouth once dailyamLODIPine 10 mg Tab 10 mg = 1 tab(s), Oral, Daily, # 90 tab(s), Refills(s) 0 Start Date: 10/26/23 Status: OrderedStart: 01-79-7696mulr 1 tablet by mouth once dailyamLODIPine (NORVASC) 10 MG tablet Take 1 tablet by mouth daily 90 tablet 3 09/01/2022 ActiveStart: 89-57-4822qhkv 1 tablet by mouth once dailyamLODIPine (NORVASC) 10 MG tablet Take 1 tablet by mouth daily 90 tablet 2 01/28/2021 ActiveStart: 92-48-3219gbyw 1 tablet by mouth once daily amLODIPine (NORVASC) 5 MG tablet Take 1 tablet by mouth daily 30 tablet 3 08/17/2020 Activeamoxicillin 500 mg oral capsule (1 source)Penicillin-class AntibacterialStart: 53-95-4330ieeq 1 capsule by mouth every twelve hoursamoxicillin 500 mg Cap 500 mg = 1 cap(s), Oral, q12hr, # 20 cap(s), Refills(s) 0, Pharmacy: [facility], [facility], 185, cm, 10/14/24 7:46:00 EST, Height/Length Dosing, 121.3, kg, 10/14/24 7:46:00 EST, Weight Dosing Start Date: 10/14/24 Status: Orderedascorbic acid 500 mg chewable tablet (6 sources)Vitamin Ctake 1 tablet by mouth once dailyvitamin C (ASCORBIC ACID) 500 MG tablet Take 500 mg by mouth daily 0 Activetake 1 tablet by mouth once dailyvitamin C (ASCORBIC ACID) 500 MG tablet Take 500 mg by mouth daily 0 Active celecoxib 100 mg oral capsule (2 sources)Nonsteroidal Anti-inflammatory DrugStart: 47-29-4718ysdk 1 capsule by mouth twice dailycelecoxib (CELEBREX) 100 MG capsule Take 1 capsule by mouth 2 times daily 30 capsule 1 09/13/2020 Activecephalexin 500 mg oral capsule (4 sources)Cephalosporin AntibacterialStart: 50-54-6972ilrfzqrnyy 500 mg Cap Refills(s) 0 Start Date: 10/26/23 Status: OrderedStart: 09-01-2022 End: 36-38-9377jeoh 1 capsule by mouth four times dailycephALEXin (KEFLEX) 500 MG capsule Take 1 capsule by mouth 4 times daily for 7 days 28 capsule 0 09/08/2022 Activecholecalciferol 0.125 mg oral tablet (2 sources)Vitamin DCholecalciferol (VITAMIN D3) 125 MCG (5000 UT) TABS Take by mouth 0 Activecitalopram 20 mg oral tablet (12 sources)Serotonin Reuptake InhibitorStart: 11-87-1164lust 10 mg by mouth once dailycitalopram 20 mg Tab 10 mg = 0.5 tab(s), Oral, Daily, # 30 tab(s), Refills(s) 0, Pharmacy: [facility] 185, cm, 04/09/24 7:36:00 EDT, Height/Length Dosing, 118.4, kg, 04/09/24 7:36:00 EDT, Weight Dosing Start Date: 04/30/24 Status: OrderedStart: 57-55-1327ujvn 10 mg by mouth once dailycitalopram 20 mg Tab 10 mg = 0.5 tab(s), Oral, Daily, # 45 tab(s), Refills(s) 0 Start Date: 10/26/23 Status: OrderedStart: 82-54-2389ltwo 0.5 tablet by mouth once daily citalopram (CELEXA) 20 MG tablet TAKE ONE-HALF (1/2) TABLET BY MOUTH DAILY 30 tablet 0 09/02/2022 ActiveStart: 93-32-8837nmtb 0.5 tablet by mouth once daily citalopram (CELEXA) 20 MG tablet TAKE 1/2 TABLET BY MOUTH ONE TIME DAILY 45 tablet 1 10/20/2020 Activetake 1 tablet by mouth once dailycitalopram (CELEXA) 20 MG tablet Take 20 mg by mouth daily 0 Activeenalapril maleate 20 mg oral tablet (10 sources)Angiotensin Converting Enzyme InhibitorStart: 24-30-3342vwfg 1 tablet by mouth once dailyenalapril 20 mg Tab 20 mg = 1 tab(s), Oral, Daily, # 90 tab(s), Refills(s) 1, Pharmacy: [facility] 185, cm, 10/14/24 7:46:00 EST, Height/Length Dosing, 121.3, kg, 10/14/24 7:46:00 EST,Weight Dosing Start Date: 10/14/24 Status: OrderedStart: 23-25-6612nnsa 1 tablet by mouth once dailyenalapril 10 mg Tab 10 mg = 1 tab(s), Oral, Daily, # 30 tab(s), Refills(s) 0, Pharmacy: [facility], 185, cm, 07/10/24 7:24:00 EDT, Height/Length Dosing, 119.9, kg, 07/10/24 7:24:00 EDT, Weight Dosing Start Date: 07/10/24 Status: OrderedStart: 21-20-3846jiqt 1 tablet by mouth once daily enalapril 20 mg Tab 20 mg = 1 tab(s), Oral, Daily, # 90 tab(s), Refills(s) 1, Pharmacy: [facility], [facility] 185, cm, 05/15/24 7:36:00 EDT, Height/Length Dosing, 121.8, kg, 05/15/24 7:36:00 EDT,Weight Dosing Start Date: 06/18/24 Status: OrderedStart: 29-48-7027gmua 1 tablet by mouth once dailyenalapril 5 mg Tab 5 mg = 1 tab(s), Oral, Daily, # 30 tab(s), Refills(s) 0, Pharmacy: [facility], 185, cm, 02/19/24 7:35:00 EDT, Height/Length Dosing, 119.7, kg, 02/19/24 7:35:00 EDT,Weight Dosing Start Date: 02/19/24 Status: OrderedStart: 28-77-9878upzn 1 tablet by mouth once dailyenalapril 2.5 mg Tab 2.5 mg = 1 tab(s), Oral, Daily, # 90 tab(s), Refills(s) 0 Start Date: 10/26/23 Status: OrderedStart: 77-83-1043duwj 1 tablet by mouth once dailyenalapril (VASOTEC) 2.5 MG tablet Take 1 tablet by mouth daily 90 tablet 3 09/01/2022 Activefluconazole 100 mg oral tablet (1 source)Azole AntifungalStart: 02-19-2024 End: 63-30-6232vwtf 1 tablet by mouth once dailyfluconazole 100 mg Tab 100 mg = 1 tab(s), Oral, Daily, X 7 day(s), # 7 tab(s), Refills(s) 0, Pharmacy: [facility], 185, cm, 02/19/24 7:35:00 EDT, Height/Length Dosing, 119.7, kg, 02/19/24 7:35:00 EDT, Weight Dosing Start Date: 02/19/24 Stop Date: 02/26/24 Status: Orderedglimepiride 4 mg oral tablet (1 source)Sulfonylureatake 1 tablet by mouth once daily before breakfast glimepiride (AMARYL) 4 MG tablet Take 4 mg by mouth every morning (before breakfast) 0 ActiveglipiZIDE er 10 mg 24 hr extended release oral tablet (2 sources)SulfonylureaStart: 33-17-5546eirv 1 tablet by mouth once daily glipiZIDE 10 mg ER Tab 10 mg = 1 tab(s), Oral, Daily, # 90 tab(s), Refills(s) 1, Pharmacy: [facility] 185, cm, 10/14/24 7:46:00 EST, Height/Length Dosing, 121.3, kg, 10/14/24 7:46:00 EST, Weight Dosing Start Date: 10/14/24 Status: OrderedStart: 83-92-7395nmxe 1 tablet by mouth once dailyglipiZIDE 5 mg ER Tab 5 mg = 1 tab(s), Oral, Daily, # 90 tab(s), Refills(s) 1, Pharmacy: [facility] 185, cm, 05/15/24 7:36:00 EDT, Height/Length Dosing, 121.8, kg, 05/15/24 7:36:00 EDT, Weight Dosing Start Date: 06/18/24 Status: OrderedlamoTRIgine 100 mg oral tablet (3 sources)Mood Stabilizer, Anti-epileptic Agenttake 1 tablet by mouth once dailylamoTRIgine (LAMICTAL) 100 MG tablet Take 100 mg by mouth daily 0 Active metFORMIN hydrochloride 1000 mg oral tablet (12 sources)BiguanideStart: 64-67-6612ghym 1 tablet by mouth twice daily metformin 1000 mg Tab See Instructions, TAKE ONE TABLET BY MOUTH TWICE A DAY, # 180 tab(s), Refills(s) 1, Pharmacy: [facility] 185, cm, 10/14/24 7:46:00 EST, Height/Length Dosing, 121.3, kg, 10/14/24 7:46:00 EST, Weight Dosing Start Date: 10/14/24 Status: OrderedStart: 41-62-7200xzkj 1 tablet by mouth twice dailymetformin 1000 mg Tab 1,000 mg = 1 tab(s), Oral, BID, # 60 tab(s), Refills(s) 0, Pharmacy: [facility], 185, cm, 04/09/24 7:36:00 EDT, Height/Length Dosing, 118.4, kg, 04/09/24 7:36:00EDT, Weight Dosing Start Date: 05/02/24 Status: OrderedStart: 58-82-4350ucuh 1 tablet by mouth twice dailymetformin 1000 mg Tab 1,000 mg = 1 tab(s), Oral, BID, # 180 tab(s), Refills(s) 0 Start Date: 10/26/23Status: OrderedStart: 97-91-8435pibc 1 tablet by mouth twice daily at mealtimemetFORMIN (GLUCOPHAGE) 1000 MG tablet Take 1 tablet by mouth 2 times daily (with meals) 90 tablet Activetake 1 tablet by mouth twice daily at mealtimemetFORMIN (GLUCOPHAGE) 1000 MG tablet Take 1,000 mg by mouth 2 times daily (with meals) 0 Activemupirocin 0.02 mg/mg topical ointment (4 sources)RNA Synthetase Inhibitor AntibacterialStart: 03-89-6519tnkqgtfpo Top 2% Oint Refill(s) 0 Start Date: 10/26/23 Status: Ykeufbw39 hr nicotine 0.875 mg/hr transdermal system (3 sources)Cholinergic Nicotinic AgonistStart: 07-21-2020 End: 53-37-5803cunew 1 dose transdermal route once dailynicotine (NICODERM CQ) 21 MG/24HR Place 1 patch onto the skin daily 42 patch 0 07/21/2020 Active omeprazole 20 mg delayed release oral capsule (9 sources)Proton Pump InhibitorStart: 39-90-7335jsbf 1 capsule by mouth once dailyomeprazole 20 mg Cap-DR See Instructions, TAKE ONE CAPSULE BY MOUTH EVERY DAY, # 30 cap(s), Refills(s) 0, Pharmacy: [facility], 185, cm, 08/15/24 8:05:00 EST, Height/Length Dosing, 119.1, kg, 08/15/24 8:05:00 EST, Weight Dosing Start Date: 09/15/24 Status: OrderedStart: 64-14-1150mqxh 1 capsule by mouth once dailyomeprazole 20 mg Cap-DR 20 mg = 1 cap(s), Oral, Daily, # 30 cap(s), Refills(s) 0, Pharmacy: [facility], 185, cm, 04/09/24 7:36:00 EDT, Height/Length Dosing, 118.4, kg, 04/09/24 7:36:00 EDT, Weight Dosing Start Date: 04/30/24 Status: OrderedStart: 98-30-4475fggd 1 capsule by mouth once daily before breakfastomeprazole 20 mg Cap-DR 20 mg = 1 cap(s), Oral, Daily, before breakfast, # 90 cap(s), Refills(s) 0 Start Date: 10/26/23 Status: OrderedStart: 23-39-8953vbmw 1 capsule by mouth once daily before breakfastomeprazole (PRILOSEC) 20 MG delayed release capsule TAKE 1 CAPSULE BY MOUTH ONE TIME A DAY BEFORE BREAKFAST 90 capsule 3 09/01/2022 ActiveStart: 78-67-4205lvfb 1 capsule by mouth once daily before breakfastomeprazole (PRILOSEC) 20 MG delayed release capsule Take 1 capsule by mouth every morning (before breakfast) 90 capsule 1 01/28/2021 Activepioglitazone 45 mg oral tablet (12 sources)Peroxisome Proliferator Receptor alpha Agonist, Peroxisome Proliferator Receptor gamma Agonist, ThiazolidinedioneStart: 89-72-1537zetl 1 tablet by mouth once dailypioglitazone 45 mg Tab 45 mg = 1 tab(s), Oral, Daily, # 90 tab(s), Refills(s) 1, Pharmacy: [facility], 185, cm, 10/14/24 7:46:00 EST, Height/Length Dosing, 121.3, kg, 10/14/24 7:46:00 EST, Weight Dosing Start Date: 10/14/24 Status: OrderedStart: 75-14-2499gfxv 1 tablet by mouth once dailypioglitazone 45 mg Tab 45 mg = 1 tab(s), Oral, Daily, # 90 tab(s), Refills(s) 0, Pharmacy: [facility], 185, cm, 05/15/24 7:36:00 EDT, Height/Length Dosing, 121.8, kg, 05/15/24 7:36:00EDT, Weight Dosing Start Date: 06/24/24 Status: OrderedStart: 88-56-8933qqxk 1 tablet by mouth once dailypioglitazone 45 mg Tab 45 mg = 1 tab(s), Oral, Daily, # 90 tab(s), Refills(s) 1, Pharmacy: [facility], 185, cm, 02/19/24 7:35:00 EDT, Height/Length Dosing, 119.7, kg, 02/19/24 7:35:00EDT, Weight Dosing Start Date: 02/19/24 Status: OrderedStart: 74-48-4741knnu 1 tablet by mouth once daily pioglitazone 45 mg Tab 45 mg = 1 tab(s), Oral, Daily, # 90 tab(s), Refills(s) 0 Start Date: 10/26/23 Status: OrderedStart: 13-07-1229zxpk 1 tablet by mouth once dailypioglitazone (ACTOS) 45 MG tablet TAKE 1 TABLET BY MOUTH ONE TIME DAILY 90 tablet 3 09/01/2022 Activetake 1 tablet by mouth once dailypioglitazone (ACTOS) 30 MG tablet Take 30 mg by mouth daily 0 Activesildenafil 100 mg oral tablet (2 sources)Phosphodiesterase 5 InhibitorStart: 00-34-0921gqbz 1 tablet by mouth every hour as needed, then take 1 tablet by mouth every twenty-four hours as neededsildenafil (VIAGRA) 100 MG tablet Take 1 tablet by mouth as needed for Erectile Dysfunction 1 hour prior to sexual activity. Do not exceed more than 1 dose in 24 hours. 30 tablet 1 09/01/2022 Activesimvastatin 20 mg oral tablet (12 sources)HMG-CoA Reductase InhibitorStart: 46-52-9805uwnh 1 tablet by mouth once dailysimvastatin 20 mg Tab See Instructions, TAKE ONE TABLET BY MOUTH EVERY DAY, # 90 tab(s), Refills(s)1, [facility], cm, 10/14/24 7:46:00 EST, Height/Length Dosing, 121.3, kg, 10/14/24 7:46:00 EST, Weight Dosing Start Date: 10/14/24 Status: OrderedStart: 96-42-3628etru 1 tablet by mouth once dailysimvastatin 20 mg Tab 20 mg = 1 tab(s), Oral, Daily, # 90 tab(s), Refills(s) 1, Pharmacy: [facility], 185, cm, 05/15/24 7:36:00 EDT, Height/Length Dosing, 121.8, kg, 05/15/24 7:36:00 EDT, Weight Dosing Start Date: 06/18/24 Status: OrderedStart: 93-65-4399vemp 1 tablet by mouth once dailysimvastatin 20 mg Tab 20 mg = 1 tab(s), Oral, Daily, # 90 tab(s), Refills(s) 0 Start Date: 10/26/23 Status: OrderedStart: 06-08-8862cyaf 1 tablet by mouth once dailysimvastatin (ZOCOR) 20 MG tablet Take 1 tablet by mouth daily 90 tablet 3 09/01/2022 ActiveStart: 48-74-1448csqvfneucjb (ZOCOR) 20 MG tabletSITagliptin 100 mg oral tablet (10 sources)Dipeptidyl Peptidase 4 InhibitorStart: 24-50-8900ighx 1 tablet by mouth once dailyJanuvia 100 mg Tab 100 mg = 1 tab(s), Oral, Daily, # 90 tab(s), Refills(s) 1, Pharmacy: [facility], 185, cm, 02/19/24 7:35:00 EDT, Height/Length Dosing, 119.7, kg, 02/19/24 7:35:00 EDT, Weight Dosing Start Date: 02/19/24 Status: OrderedStart: 74-14-9998gigx 1 tablet by mouth once daily Januvia 100 mg Tab 100 mg = 1 tab(s), Oral, Daily, # 90 tab(s), Refills(s) 0 Start Date: 10/26/23 Status: OrderedStart: 60-43-0006fehe 1 tablet by mouth once dailySITagliptin (JANUVIA) 100 MG tablet Take 1 tablet by mouth daily 90 tablet 3 09/01/2022 ActiveStart: 21-03-3635zyii 1 tablet by mouth once dailySITagliptin (JANUVIA) 100 MG tablet Take 1 tablet by mouth daily 90 tablet 0 01/14/2021 ActiveStart: 92-21-4287CPEJLDJ 100 MG tabletsulfamethoxazole 400 mg / trimethoprim 80 mg oral tablet (4 sources)Dihydrofolate Reductase Inhibitor Antibacterial, Sulfonamide AntimicrobialStart: 03-60-1536Yweecxk 400 mg-80 mg Tab Refill(s) 0 Start Date: 10/26/23 Status: Orderedzinc gluconate 50 mg oral tablet (2 sources)take 1 tablet by mouth once dailyzinc gluconate 50 MG tablet Take 50 mg by mouth daily 0 Active Problems Active Problems Problem ClassificationProblemDateDocumented DateEpisodic/ChronicAnxiety disorders (5 sources)Anxiety; Translations: [Anxiety disorder, unspecified]Onset: 458731-74-8932GrqhkcoCovcwpvf mellitus without complication (17 sources)Type 2 diabetes mellitus without complication; Translations: [Type 2 diabetes mellitus without complications]Onset: 429337-90-1229Hggrmmu Disorders of lipid metabolism (13 sources)Hyperlipidemia; Translations: [Other hyperlipidemia]Onset: 347375-96-1084MnioqrrCqunwivtg hypertension (14 sources)Essential hypertension; Translations: [Essential (primary) hypertension]Onset: 342670-76-9638ScsgixlMzjs disorders (11 sources)Depressive disorder; Translations: [Major depressive disorder, single episode, unspecified]Onset: 206914-51-8397QezuvdcTpbuj aftercare (1 source)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; Translations: [OTH GROUP HOME 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]Onset: 84-03-2391LdiscabdLpjlg male genital disorders (2 sources)Male erectile dysfunction, unspecified; Translations: [Impotence of organic origin]Onset: 90-65-8584GopydphLfumg nervous system disorders (1 source)Paige's palsy; 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]Onset: 55-84-1821Bedixvnu Other nutritional; endocrine; and metabolic disorders (1 source)Obesity; Translations: [Other obesity due to excess calories]Onset: 11-55-9722ThwqeiwUdwcl nutritional; endocrine; and metabolic disorders (1 source)Obese class II; Translations: [Body mass index (BMI) 35.0-35.9, adult] Onset: 40-70-3986ZyojikiJmemi nutritional; endocrine; and metabolic disorders (8 sources)Body mass index 30+ - higcihp85-63-6769BsedxykYsxcv nutritional; endocrine; and metabolic disorders (5 sources)Obesity caused by energy fhajlcmgq20-20-8207QwygbmjJsrmvzwg codes; unclassified (2 sources)Nicotine-filled electronic cigarette kcsa49-12-5217IubflazsBahvclpeh and history of mental health and substance abuse codes (2 sources)Tobacco use and exposure - finding; Translations: [Tobacco use]Onset: 192016-57-8589YjwttzjKdst and subcutaneous tissue infections (9 sources)Abscess of face; Translations: [Cutaneous abscess of face]Onset: 72-14-5311Grfchcjc Past or Other Problems Problem ClassificationProblemDateDocumented DateEpisodic/ChronicNonspecific chest pain (4 sources)Right sided chest pain; Translations: [Non-cardiac chest pain]Onset: 803986-79-5377AyzxsemmCllbwuca codes; unclassified (3 sources)Tobacco use and exposure - finding; Translations: [Tobacco use]Onset: 206687-05-6634KdxnifmhLqiarrrkurc; intervertebral disc disorders; other back problems (3 sources)Acute thoracic back pain; Translations: [Pain in thoracic spine] Onset: 811580-60-6640Pirhjooz Results Test NameValueInterpretationReference RangeFacilityAmbulatory Visit Summaryon 09-71-3877Ydyjvtizyu Visit SummaryAmbulatory Visit Summary SULTANA JOSHUA :1980 Visit Date:07/21/2025 Ambulatory Visit Instructions Your Diagnosis Type 2 diabetes mellitus Bone spur of acromioclavicular joint Left shoulder pain Tests Performed MRI Shoulder w/o Contrast Left -- Results Pending -- Please visit your patient portal for your results or contact your primary care physician. Your Care Team Attending Physician - Emily Maurice Primary Care Physician - PASQUALE STERN CNP This Is Your Medications List Misc Prescription (Glucometer) Misc Prescription (Lancets) Misc Prescription (Pen Needle 31G x 6mm) Misc Prescription (Test strips) amlodipine (amLODIPine 10 mg Tab) citalopram (citalopram 20 mg Tab) cyclobenzaprine (cyclobenzaprine 10 mg Tab) dulaglutide (Trulicity Pen 0.75 mg/0.5 mL subcutaneous solution) enalapril (enalapril 20 mg Tab) glipiZIDE (glipiZIDE 10 mg ER Tab) meloxicam (meloxicam 15 mg Tab) metformin (metformin 1000 mg Tab) omeprazole (omeprazole 20 mg Cap-DR) pioglitazone (pioglitazone 45 mg Tab) simvastatin (simvastatin 40 mg Tab) Procedures Performed Anterior cruciate ligament of knee joint, Photorefractive keratectomy. Discharge Vitals Temperature (Temporal Artery) 36.5 ???C Heart Rate (Peripheral) 94 Respiratory Rate 18 Blood Pressure 130/80 Height 185 cm Height 73 in Weight 123.1 kg Weight 271.389 lb BMI 35.97 What to do next Scheduled Follow-Up Appointments Sunday 8:40 AM EST With: Emily Maurice Where: [address] [id number] 8:20 AM EST With: Emily Maurice Where: [address] [address]- Medications What How Much When Why Instructions Unchanged amlodipine (amLODIPine 10 mg Tab) See instructions TAKE ONE TABLET BY MOUTH ONCE DAILY Unchanged citalopram (citalopram 20 mg Tab) 0.5 Tablets By Mouth Every day Unchanged cyclobenzaprine (cyclobenzaprine 10 mg Tab) 1 Tablets By Mouth At bedtime as needed for for spasm Left shoulder pain BMI 36.0-36.9,adult Obesity (BMI 30-39.9) Vapes nicotine containing substance Unchanged dulaglutide (Trulicity Pen 0.75 mg/ 0.5 mL subcutaneous solution) 0.75 Milligram Subcutaneous Every week Diabetes BMI 36.0-36.9,adult Obesity (BMI 30- 39.9) Vapes nicotine containing substance Tobacco use Unchanged enalapril (enalapril 20 mg Tab) 1 Tablets By Mouth Every day HTN (hypertension) Unchanged glipiZIDE (glipiZIDE 10 mg ER Tab) 1 Tablets By Mouth Every day Diabetes Unchanged meloxicam (meloxicam 15 mg Tab) 1 Tablets By Mouth Every day Left shoulder pain BMI 36.0-36.9,adult Obesity (BMI 30-39.9) Vapes nicotine containing substance Unchanged metformin (metformin 1000 mg Tab) See [...] Mouth Once a day (at bedtime) Hyperlipidemia Allergies No Known Medication Allergies Problems Ongoing - Any problem that you are currently receiving treatment for. Abscess of left external cheek BMI 36.0-36.9,adult Bone spur of acromioclavicular joint Depression Left shoulder pain Obesity (BMI 30-39.9) Type 2 diabetes mellitus Vapes nicotine containing substance Patient Survey You [...] signed up for this yet, please contact [employer] at [phone] to get signed up today. Language Information Language assistance services are available as needed. [facility]/Cl[facility] Noteon [id number] Medicine Office/Clinic NoteW[facility] Note HPI Staff Pt is presenting for 3month follow up diabetes Patient is here for follow up on Diabetes. How often are you checking your blood sugars? When it comes to mind What are your average readings? 200 Paresthesias, Ulcerations or sores? no Lisinopril, aspirin, statin therapy? Yes Foot Exam: Due Eye Exam: Hasn't had one in awhile Last A1c: Hgb A1C %: 7.9 % High (04/07/25 09:24:00) Questions/Concerns: Also in for left shoulder injury, a knot that sticks up. pain rating 5 History of Present Illness pt presents today for 3 month diabetes follow up. Review of Systems PHQ Score Initial Depression Screen Score: 0 SCORE General: alert, no acute distress ENMT: oral mucosa moist, no pharyngeal erythema or exudate Cardiovascular: regular rate and rhythm, normal peripheral perfusion Respiratory: Lungs CTA, respirations non labored Extremities: no deformity, no trauma Neurological: oriented x 4, LOC appropriate for age, CN II-XII intact, motor strength equal & normal bilaterally, speech normal Physical Exam Vitals & Measurements T: 36.5 ???C(Temporal Artery) HR: 94(Peripheral) RR: 18 BP: 130/80 HT: 185 cm HT: 73 in WT: 123.1 kg WT: 271.389 lb BMI: 35.97 Assessment/Plan 1. Type 2 diabetes mellitus (E11.9: Type 2 diabetes mellitus without complications) will check HGBA1C today. he had some issues with injectable but finally got it worked out through mail in pharmacy. RTC 3 months for diabetes follow up Ordered: HgbA1c 2. Bone spur of acromioclavicular joint (M75.80: Other shoulder lesions, unspecified shoulder) x ray of left shoulder showed mild spurring at acromioclavicular joint. he now has a bony structurelump on left shoulder that it painful to touch. will order MRI. and most likely refer to ortho for further evaluation once we get those results back. follow up 4 weeks for shoulder pain Ordered: MRI Shoulder w/o Contrast Left 3. 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 anti inflammatory, medrol dose pack and muscle relaxer has not touched his pain. will give toradol and kenalog in office today and send in lidocaine patches. Ordered: MRI Shoulder w/o Contrast Left 4. BMI 35.0-35.9,adult (Z68.35: Body mass index [BMI] 35.0-35.9, adult) BMI education given 5. Obesity (BMI 30-39.9) (E66.9: Obesity, unspecified) Follow-up With When Contact Information Emily Maurice FAM, MED In 4 weeks 07/07/2025 EDT [address] [place] [address]- Business (1) Additional Instructions: 4 weeks shoulder pain Emily Maurice FAM, MED In 3 months [address] [place] [address]- Additional Instructions: 3 months diabetes follow up Problem List/Past Medical History Ongoing Abscess of left external cheek BMI 35.0-35.9,adult BMI 36.0-36.9,adult Bone spur of acromioclavicular joint Depression Left shoulder pain Obesity (BMI 30-39.9) Type 2 diabetes mellitus Vapes nicotine containing substance Historical No qualifying data Procedure/Surgical History Anterior cruciate ligament of knee joint, Photorefractive keratectomy. Medications amLODIPine 10 mg Tab, See Instructions citalopram 20 mg Tab, 10 mg= 0.5 tab(s), Oral, Daily, 1 refills cyclobenzaprine 10 mg Tab, 10 mg= 1 tab(s), Oral, Bedtime, PRN enalapril 20 mg Tab, 20 mg= 1 tab(s), Oral, Daily, 1 refills glipiZIDE 10 mg ER Tab, 10 mg= 1 tab(s), Oral, Daily, 1 refills Glucometer, See Instructions Lancets, See Instructions meloxicam 15 mg Tab, 15 mg= 1 tab(s), Oral, Daily metformin 1000 mg Tab, See Instructions omeprazole 20 mg Cap-DR, 20 mg= 1 cap(s), Oral, Daily, 1 refills Pen Needle 31G x 6mm, See Instructions, 1 refills pioglitazone 45 mg Tab, See Instructions, 1 refills simvastatin 40 mg Tab, 40 mg= 1 tab(s), Oral, Once a day (at bedtime), 1 refills Test strips, See Instructions triamcinolone acetonide 40 mg/mL Inj Susp, 40 mg= 1 mL, IntraMuscular, Once Trulicity Pen 0.75 mg/0.5 mL subcutaneous solution, 0.75 mg, SubCutaneous, qWeek, 1 refills Allergies No Known Medication Allergies Social History Alcohol Current. Liquor. 1-2 times per month., 07/10/2024 Substance Abuse - Denies Substance Abuse, 10/26/2023 Never., 07/10/2024 Tobacco Former smoker, quit more than 30 days ago Tobacco Use:. Current vaping or e- cigarette use SmokelessTobacco Use:. Cigarettes, Vaping, Stopped age 43 Years. Ready to change: No. Household tobacco concerns: No. Yes, 06/30/2025 Family History Diabetes mellitus type 2: Father. Mitral valve disorder: Father. Immunizations Vaccine Date Status Comments pneumococcal 23-valent vaccine 11/07/2021 Recorded 2023-10-26: VIS DATE: 07/16/2019NoCincinnati VA Medical CenterComment on above:Result Comment: Electronically Signed By: Emily Maurice\.br\Date and Time Signed: 07/21/25 09:28 BQHJxaH0rut [id number] (Bld) [Mass fraction]9.9 %High<=5.9C[facility] Medical CenterComment on above:Performed By: #### [id number] #### [facility] [address] [place], [place] [address]Lgnsfdlh Letteron [phone] LetterProvider Letter July 21, 2025 SULTANA JOSHUA [phone] [place] [address] : 1980 To Whom It May Concern, Please excuse above patient from work. Date of Appointment: 07/21/2025 May Return to Work On: 07/21/2025 Sincerely, [address] [address] QksdqdCjmmksCincinnati VA Medical CenterAmbulatory Visit Summaryon [id number] Visit SummaryAmbulatory Visit Summary SULTANA JOSHUA :1980 Visit Date:06/30/2025 Ambulatory Visit Instructions Your Diagnosis Left shoulder pain BMI 36.0-36.9,adult Obesity (BMI 30-39.9) Vapes nicotine containing substance Tests Performed XR Shoulder Complete Left -- Results Pending -- Please visit your patient portal for your results or contact your primary care physician. Your Care Team Attending Physician - Emily Maurice Primary Care Physician - PASQUALE STERN CNP This Is Your Medications List Misc Prescription (Glucometer) Misc Prescription (Lancets) Misc Prescription (Pen Needle 31G x 6mm) Misc Prescription (Test strips) amlodipine (amLODIPine 10 mg Tab) citalopram (citalopram 20 mg Tab) cyclobenzaprine (cyclobenzaprine 10 mg Tab) dulaglutide (Trulicity Pen 0.75 mg/0.5 mL subcutaneous solution) enalapril (enalapril 20 mg Tab) glipiZIDE (glipiZIDE 10 mg ER Tab) meloxicam (meloxicam 15 mg Tab) metformin (metformin 1000 mg Tab) methylPREDNISolone (Medrol 4 mg Tab) omeprazole (omeprazole 20 mg Cap-DR) pioglitazone (pioglitazone 45 mg Tab) simvastatin (simvastatin 40 mg Tab) Procedures Performed Anterior cruciate ligament of knee joint, Photorefractive keratectomy. Discharge Vitals Temperature (Oral) 36.8 ???C Heart Rate (Peripheral) 95 Respiratory Rate 18 Blood Pressure 134/82 Height 185 cm Height 73 in Weight 124.1 kg Weight 273.593 lb BMI 36.26 What to do next Scheduled Follow-Up Appointments Sunday 8:20 AM EST With: Emily Maurice Where: [address] [address]- Medications What How Much When Why Instructions New cyclobenzaprine (cyclobenzaprine 10 mg Tab) 1 Tablets By Mouth At bedtime as needed for for spasm Left shoulder pain BMI 36.0-36.9,adult Obesity (BMI 30- 39.9) Vapes nicotine containing substance Pickup at [facility] New meloxicam (meloxicam 15 mg Tab) 1 Tablets By Mouth Every day Left shoulder pain BMI 36.0-36.9,adult Obesity (BMI 30-39.9) Vapes nicotine containing substance Pickup at [facility] New methylPREDNISolone (Medrol 4 mg Tab) 1 Packets By Mouth As Directed Left shoulder pain BMI 36.0-36.9,adult Obesity (BMI 30-39.9) Vapes nicotine containing substance Duration: 6 Days as directed on package labeling Pickup at [facility] Unchanged amlodipine (amLODIPine 10 mg Tab) See instructions TAKE ONE TABLET BY MOUTH ONCE DAILY Unchanged citalopram (citalopram 20 mg Tab) 0.5 Tablets By Mouth Every day Unchanged dulaglutide (Trulicity Pen 0.75 mg/ 0.5 mL subcutaneous solution) 0.75 Milligram Subcutaneous Every week Diabetes BMI 36.0-36.9,adult Obesity (BMI 30- 39.9) Vapes nicotine containing substance Tobacco use Unchanged enalapril (enalapril 20 mg Tab) 1 [...] a day (at bedtime) Hyperlipidemia Pharmacy Information [facility]: [address] [place], [place] [id number] [phone] Allergies No Known Medication Allergies Problems Ongoing - Any problem that you are currently receiving treatment for. Abscess of left external cheek BMI 36.0-36.9,adult Depression Left shoulder pain Obesity (BMI 30-39.9) Vapes nicotine containing substance [...] signed up for this yet, please contact [employer] at [phone] to get signed up today. Language Information Language assistance services are available as needed. [facility] Medicine Office/Clinic Noteon [id number] Medicine Office/Clinic NoteFaboston medical center Medicine Office/Clinic Note Chief Complaint Lt Arm/Shoulder pain HPI Staff Pt presents today due to Lt arm & shoulder pain. Pain characteristics: Pain location: Lt arm & shoulder Intensity:_5/10 Onset: 3wks ago Medication used: muscle relaxers, Tylenol q4hrs, a pain pill (doesn't remember name). Not getting any help. History of Present Illness pt c/o left shoulder pain for 3 weeks. no injury that he is aware of. Review of Systems PHQ Score Initial Depression Screen Score: 0 SCORE General: alert, no acute distress ENMT: oral mucosa moist, no pharyngeal erythema or exudate Cardiovascular: regular rate and rhythm, normal peripheral perfusion Respiratory: Lungs CTA, respirations non labored Extremities: no deformity, no trauma Neurological: oriented x 4, LOC appropriate for age, CN II-XII intact, motor strength equal & normal bilaterally, speech normal left shoulder ROM mildly limited due to pain, worse when raising laterally greater that 90 degrees Physical Exam Vitals & Measurements T: 36.8 ???C(Oral) HR: 95(Peripheral) RR: 18 BP: 134/82 SpO2: 95% HT: 185 cm HT: 73 in WT: 124.1 kg WT: 273.593 lb BMI: 36.26 Assessment/Plan 1. Left shoulder pain (M25.512: Pain in left shoulder) pt presents today for left shoulder pain. that started about 3 weeks ago. doesn't remember injuringit. 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 pain is worst in bicep area but does shoot up into his shoulder. he has been doing stretches at home since the pain started 3 weeks ago. xray order provided. will order medrol dose pack,meloxicam and muscle relaxer to take at bedtime. he is not sleeping well at all due to the pain. Ordered: cyclobenzaprine, 10 mg = 1 tab(s), Oral, Bedtime, PRN for spasm, # 30 tab(s), Refills(s) 0, Pharmacy: [facility], 185, cm, 06/30/25 9:11:00 EDT, Height/Length Dosing, 124.1, kg, 06/30/25 9:11:00 EDT, Weight Dosing meloxicam, 15 mg = 1 tab(s), Oral, Daily, # 30 tab(s), Refills(s) 0, Pharmacy: [facility], 185, cm, 06/30/25 9:11:00 EDT, Height/Length Dosing, 124.1, kg, 06/30/25 9:11:00 EDT, WeightDosing methylPREDNISolone, = 1 packet(s), Oral, As Directed, as directed on package labeling, X 6 day(s), # 21 tab(s), Refills(s) 0, Pharmacy: [facility], 185, cm, 06/30/25 9:11:00 EDT, Height/Length Dosing, 124.1, kg, 06/30/25 9:11:00 EDT, Weight Dosing XR Shoulder Complete Left 2. BMI 36.0-36.9,adult (Z68.36: Body mass index [BMI] 36.0-36.9, adult) BMI educatoin Ordered: cyclobenzaprine, 10 mg = 1 tab(s), Oral, Bedtime, PRN for spasm, # 30 tab(s), Refills(s) 0, Pharmacy: [facility], 185, cm, 06/30/25 9:11:00 EDT, Height/Length Dosing, 124.1, kg, 06/30/25 9:11:00 EDT, Weight Dosing meloxicam, 15 mg = 1 tab(s), Oral, Daily, # 30 tab(s), Refills(s) 0, Pharmacy: [facility], 185, cm, 06/30/25 9:11:00 EDT, Height/Length Dosing, 124.1, kg, 06/30/25 9:11:00 EDT, WeightDosing methylPREDNISolone, = 1 packet(s), Oral, As Directed, as directed on package labeling, X 6 day(s), # 21 tab(s), Refills(s) 0, Pharmacy: [facility], 185, cm, 06/30/25 9:11:00 EDT, Height/Length Dosing, 124.1, kg, 06/30/25 9:11:00 EDT, Weight Dosing XR Shoulder Complete Left 3. Obesity (BMI 30-39.9) (E66.9: Obesity, unspecified) see above Ordered: cyclobenzaprine, 10 mg = 1 tab(s), Oral, Bedtime, PRN for spasm, # 30 tab(s), Refills(s) 0, Pharmacy: [facility], 185, cm, 06/30/25 9:11:00 EDT, Height/Length Dosing, 124.1, kg, 06/30/25 9:11:00 EDT, Weight Dosing meloxicam, 15 mg = 1 tab(s), Oral, Daily, # 30 tab(s), Refills(s) 0, Pharmacy: [facility], 185, cm, 06/30/25 9:11:00 EDT, Height/Length Dosing, 124.1, kg, 06/30/25 9:11:00 EDT, WeightDosing methylPREDNISolone, = 1 packet(s), Oral, As Directed, as directed on package labeling, X 6 day(s), # 21 tab(s), Refills(s) 0, Pharmacy: [facility], 185, cm, 06/30/25 9:11:00 EDT, Height/Length Dosing, 124.1, kg, 06/30/25 9:11:00 EDT, Weight Dosing XR Shoulder Complete Left 4. Vapes nicotine containing substance (Z72.0: Tobacco use) consider not vaping Ordered: cyclobenzaprine, 10 mg = 1 tab(s), Oral, Bedtime, PRN for spasm, # 30 tab(s), Refills(s) 0, Pharmacy: [facility], 185, cm, 06/30/25 9:11:00 EDT, Height/Length Dosing, 124.1, kg, 06/30/25 9:11:00 EDT, Weight Dosing meloxicam, 15 mg = 1 tab(s), Oral, Daily, # 30 tab(s), Refills(s) 0, Pharmacy: [facility], 185, cm, 06/30/25 9:11:00 EDT, Height/Length Dosing, 124.1, kg, 06/30/25 9:11:00 EDT, WeightDosing methylPREDNISolone, = 1 packet(s), Oral, As Directed, as directed on package labeling, X 6 day(s), # 21 tab(s), Refills(s) 0, Pharmacy: [facility], 185, cm, 06/30/25 9:11:00 EDT, Height/Length Dosing, 124.1, kg, 06/30/25 9:11:00 EDT, Weight Dosing XR Shoulder Complete Left Follow-u (more content not included)...[facility]ner [facility] CenterComment on above:Result Comment: Electronically Signed By: Emily Maurice\.br\Date and Time Signed: 06/30/25 09:29 EDTProvider Letteron [id number] Letter Provider Letter June 30, 2025 SULTANA JOSHUA [phone] [place] [address] : 1980 To Whom It May Concern, Please excuse above patient from work due to a doctors appointment Date of Illness: From: _ To: _ May Return to Work On:06-30-25 Restrictions: _ Comments: _ Sincerely, Family Medicine [address] [address] NoxdmrXzbowiWexner Medical CenterAmbulatory Visit Summaryon [id number] Visit SummaryAmbulatory Visit Summary SULTANA JOSHUA :1980 Visit Date:05/14/2025 [...] AM EST With: PASQUALE STERN CNP Where: [facility] Medicine [address] [address]- Medications What How Much When Why Instructions New dulaglutide (Trulicity Pen 0.75 mg/ 0.5 mL subcutaneous solution) 0.75 Milligram Subcutaneous Every week Diabetes BMI 36.0-36.9,adult Obesity (BMI 30- 39.9) Vapes nicotine containing substance Tobacco use Refills: 2 Pickup at [facility]/pharmacy #[id number] Unchanged amlodipine (amLODIPine 10 mg Tab) See [...] a day (at bedtime) Hyperlipidemia Pharmacy Information [facility]/pharmacy #[id number]: [address], [place] [id number] [phone] Allergies No Known Medication Allergies Problems Ongoing [...] signed up for this yet, please contact [employer] at [phone] to get signed up today. Language Information Language assistance services are available as needed. [facility] Office/Clinic Noteon [phone] Medicine Office/Clinic NotePhoe[facility] Office/Clinic Note Chief Complaint Discuss diabetes The [...] release once daily, actos 45 mg daily, andmetformin 1000 mg twice daily. - Discussed cost [...] qWeek, # 2 mL, Refills(s) 2, Pharmacy: [facility]/pharmacy #[id number], 185,cm, 05/14/25 8:43:00 EDT, Height/Length Dosing, 124.5, kg, 05/14/25 8:43:00 EDT, Weight Dosing 2. BMI 36.0-36.9,adult (Z68.36: Body mass index [BMI] 36.0-36.9, adult) BMI 36.38 Ordered: dulaglutide, 0.75 mg, SubCutaneous, qWeek, # 2 mL, Refills(s) 2, Pharmacy: [facility]/pharmacy #[id number], 185,cm, 05/14/25 8:43:00 EDT, Height/Length Dosing, 124.5, kg, 05/14/25 8:43:00 EDT, Weight Dosing 3. Obesity (BMI 30-39.9) (E66.9: Obesity, unspecified) - Continue dietary management with a focus on protein-rich foods and low-calorie beverages. Ordered: dulaglutide, 0.75 mg, SubCutaneous, qWeek, # 2 mL, Refills(s) 2, Pharmacy: [facility]/pharmacy #[id number], 185,cm, 05/14/25 8:43:00 EDT, Height/Length Dosing, 124.5, kg, 05/14/25 8:43:00 EDT, Weight Dosing 4. Vapes nicotine containing substance, (Z72.0: Tobacco use)Tobacco use - Discuss potential cessation strategies for vaping nicotine-containing substances. Ordered: dulaglutide, 0.75 mg, SubCutaneous, qWeek, # 2 mL, Refills(s) 2, Pharmacy: [facility]/pharmacy #[id number], 185,cm, 05/14/25 8:43:00 EDT, Height/Length Dosing, 124.5, kg, [...] refills Glucometer, See Instru (more content not included)...[facility] Medical CenterComment on above:Result Comment: Electronically Signed By: PASQUALE STERN CNP\.br\Date and Time Signed: 05/14/25 09:19 EDTAmbulatory Visit Summaryon [id number] Visit SummaryAmbulatory Visit Summary SULTANA JOSHUA :1980 Visit Date:04/07/2025 [...] 6 months Comments: Diabetes & HTN Where: [address] [place] [phone] [facility] (1) You Need to Complete the Following [...] Capsules By Mouth Every day Pickup at [facility] Changed simvastatin (simvastatin 20 mg Tab) 1 Tablets By Mouth Once a day (at bedtime) Pickup at [facility] Unchanged enalapril (enalapril 20 mg Tab) 1 Tablets By Mouth Every day HTN (hypertension) [email or web address] Unchanged amlodipine (amLODIPine 10 mg Tab) [...] instructions TAKE ONE TABLET BY MOUTH EVERY DAYContact prescribing physician if questions or concerns Pharmacy Information [facility]: [address], [place] [id number] [phone] What How Much When Why Comments Stop [...] your diabetes, you shabnam (more content not included)...NormalFisher R [facility] w/ Auto Diffon [id number] Absolute0.0 E9/LNormal 0.0-0.2[facility] InstituteComment on above:Performed By: #### [id number] #### [place] [facility] [address] [place], [place] [address]Nzojnithg/100 WBC (Bld)0.7 %Normal0.0-2.0[facility] CenterComment on above:Performed By: #### [id number] #### [facility] [address] [place] [address]Atk Absolute0.2 E9/LNormal0.0-0.5FSt. Anthony's Hospital Comment on above:Performed By: #### [id number] #### [facility] [address] [place] [address]Zpsegxhvjlo/100 WBC (Bld)4.1 %Normal0.0-8.0[facility] Medical CenterComment on above:Performed By: #### [id number] #### [facility] [address] [place] [address]Tffuesosqfm distribution width (RBC) [Ratio]13.6 %Normal 10.9-14.2FSt. Anthony's HospitalComment on above:Performed By: #### [id number] #### [facility] [address] [place] [address]Ztoiftfqab (Bld) [Volume fraction]47.8 %Mhvnqb44.7-49.0[facility] Medical CenterComment on above:Performed By: #### [id number] #### [facility] [address] [place] [address]Torjnwuutl (Bld) [Mass/Vol]16.6 g/qMCnwhpr31.5-17.5FSt. Anthony's HospitalComment on above:Performed By: #### [id number] #### [facility] [address] [place] [address]Pgspl Absolute1.8 E9/LNormal1.0-4.0[facility] Comment on above:Performed By: #### [id number] #### [facility] [address] [place], [place] [address]Pijvbugvrzo/100 WBC (Bld)40.6 %Bkepgw25.0-50.0[facility] Medical CenterComment on above:Performed By: #### [id number] #### [facility] [address] [place], [place] [address]ZDU (RBC) [Entitic mass]33.3 jeXyycxj28.0-34.0[facility] CenterComment on above:Performed By: #### [id number] #### [facility] [address] [place] [address]XSKJ (RBC) [Mass/Vol]34.7 g/lTTuqreq50.4-36.0[facility] CenterComment on above:Performed By: #### [id number] #### [facility] [address] [place] [address]OFD (RBC) [Entitic vol]96.2 eZRofnvi64.0-100.0[facility] CenterComment on above:Performed By: #### [id number] #### [facility] [address] [place] [address]Yeaz Absolute0.4 E9/LNormal0.2-1.0[facility] Comment on above:Performed By: #### [id number] #### [facility] [address] [place] [address]Jmklxnxdc/100 WBC (Bld)9.1 %Normal4.0-14.0[facility] CenterComment on above:Performed By: #### [id number] #### [facility] [address] [place] [address]Jvrjid Absolute2.0 E9/LNormal2.0-7.5FSt. Anthony's Hospital Comment on above:Performed By: #### [id number] #### [facility] [address] [place] [address]Tpjqjs Auto45.5 %Gcfona17.0-75.0[facility] Comment on above:Performed By: #### [id number] #### [facility] [address] [place] [address]Ghjqmbhg368.0 E9/VOpyytu207.0-500.0[facility] Comment on above:Performed By: #### [id number] #### [facility] [address] [place], [place] [address]Wynmgtrr mean volume (Bld) [Entitic vol]8.8 fLNormal6.4-10.8 [facility] CenterComment on above:Performed By: #### [id number] #### [facility] [address] [place], [place] [address]KJD5.0 E12/LNormal4.3-5.9[facility] CenterComment on above:Performed By: #### [id number] #### [facility] [address] [place], [place] [address]SDT4.5 E9/LNormal4.0-11.0[facility] CenterComment on above:Performed By: #### [id number] #### [facility] [address] [place], [place] [address]QYPjl 89-60-1310Hjrojsv [Mass/Vol]4.8 g/dLNormal3.3-5.0[facility] CenterComment on above:Performed By: #### [id number] #### [facility] [address] [place] [address]Rvgisob/Globulin [Mass ratio]1.7 {ratio}Normal1.1-2.2FSt. Anthony's HospitalComment on above:Performed By: #### [id number] #### [facility] [address] [place], [place] [address]Sti Phos52 Int._Unit/BQenzud55-58JdibvkCincinnati Va Medical Center Comment on above:Performed By: #### [id number] #### [facility] [address] [place], [place] [address]AZC97 Int._Unit/LHigh6-46[facility] CenterComment on above:Performed By: #### [id number] #### [facility] [address] [place], [place] [address]Gekzk gap [Moles/Vol]14 mmol/LNormal6-16[facility] CenterComment on above:Performed By: #### [id number] #### [facility] [address] [place], [place] [address]FCA43 Int._Unit/LNormal5-43[facility] CenterComment on above:Performed By: #### [id number] #### [facility] [address] [place], [place] [address]Xcll Total0.7 mg/dLNormal0.0-1.1FSt. Anthony's Hospital Comment on above:Performed By: #### [id number] #### [facility] [address] [place], [place] [address]FAN/Creat Ratio20 No YntumBfpget84-43MztfgvCincinnati Va Medical CenterComment on above:Performed By: #### [id number] #### [facility] [address] [place], [place] [address]Pauwjlq [Mass/Vol]10.2 mg/dLNormal8.9-11.1FSt. Anthony's HospitalComment on above:Performed By: #### [id number] #### [facility] [address] [place], [place] [address]Zjjlwocr [Moles/Vol]100 mmol/VLpk823-907LpdfgrCincinnati Va Medical CenterComment on above:Performed By: #### [id number] #### [facility] [address] [place], [place] [address]ED9 [Moles/Vol]25 mmol/MXpohej20-67XoacfuCincinnati Va Medical Center Comment on above:Performed By: #### [id number] #### [facility] [address] [place], [place] [address]Fyzlmqrwtq [Mass/Vol]1.2 mg/dLNormal0.5-1.3FSt. Anthony's HospitalComment on above:Performed By: #### [id number] #### [facility] [address] [place], [place] [address]Ukljpynz (S) [Mass/Vol]2.9 g/dLNormal1.4-4.0[facility] CenterComment on above:Performed By: #### [id number] #### [facility] [address] [place], [place] [address]Uxdrgfx [Mass/Vol]279 mg/eQTdaq44-695GmucpyCincinnati Va Medical CenterComment on above:Performed By: #### [id number] #### [facility] [address] [place], [place] [address]Siqyuziwq [Moles/Vol]4.7 mmol/LNormal3.5-5.3FSt. Anthony's HospitalComment on above:Performed By: #### [id number] #### [facility] [address] [place], [place] [address]Iuizfwy [Mass/Vol]7.7 g/dLNormal6.0-7.8[facility] CenterComment on above:Performed By: #### [id number] #### [facility] [address] [place], [place] [address]Ohcvlb [Moles/Vol]134 mmol/SQvn243-947VbejspCincinnati Va Medical CenterComment on above:Performed By: #### [id number] #### [facility] [address] [place], [place] [address]Klwg nitrogen [Mass/Vol]24 mg/dLHigh5-21[facility] CenterComment on above:Performed By: #### [id number] #### [facility] [address] [place], [place] [address] Office/Clinic Noteon [id number] Medicine Office/Clinic NoteFaboston medical center Medicine Office/Clinic Note Chief Complaint The patient is concerned about diabetes management and medication costs. [facility] Staff Pt presents today for 3m follow [...] follow-up on diabetes management and overall health maintenance.The patient has a history of type 2 diabetes mellitus without complications, with a previous A1c of10.2%. He has been monitoring his blood glucose levels at home, which have been consistently under 120 mg/dL, suggesting an improvement. The patient has not used Trulicity for two weeks due to cost co ncerns, and is unsure about insurance coverage for alternative medications. The patient has essential hypertension, with a recent blood pressure reading of 134/86 mmHg. He is currently on medications including amlodipine and enalapril for blood pressure management. He deniesdizziness, headache, vision changes, chest pain, or heart palpitations. The patient has hyperlipidemia and is taking atorvastatin, with plans to check cholesterol levels during this visit. The patient reports a history of depression, currently managed with citalopram.He states he would like to stop some of his medications and a plan to wean off this medication is one step towards this.He reports he does not feel depression and [...] diabetes control. - [facility] and [facility] insurance coverage for alternatives. - Reviewed patient blood sugar log - Encourage low carb diet and daily exercise - Continue glipizide 10 mf, MetFormin 100 mg, and pioglitazone 45 mg- no refills today - F/U in 3-6 months pending laboratory results Ordered: CBC w/ Auto Diff Comprehensive Metabolic Panel HgbA1c Lab Specimen Collect [id number] Urine Microalbumin/Creatinine Ratio 2. HTN (hypertension) (I10: Essential (primary) hypertension) - Continue current antihypertensive medications: amlodipine and enalapril. Ordered: enalapril, 20 mg = 1 tab(s), Oral, Daily, # 90 tab(s), Refills(s) 1, Pharmacy: [facility], 185, cm, 04/07/25 8:47:00 EDT, Height/Length Dosing, 122.4, kg, 04/07/25 8:47:00 EDT, WeightDosing CBC w/ Auto Diff Comprehensive Metabolic Panel Lipid Panel 3. Hyperlipidemia (E78.5: Hyperlipidemia, unspecified) - Plan to check cholesterol levels during this visit. Ordered: Lab Specimen Collect 50187 Lipid Panel 4. Depression, unspecified (F32.A) - [...] smoker (Z87.891: Personal history of nicotine dependence) [facility] (more content not included)...NormalCincinnati Va Medical CenterComment on above:Result Comment: Electronically Signed By: PASQUALE STERN CNP\.shekhar\Date and Time Signed: 04/07/25 09:30 WZPBmxV9ebd 01-80-0299WzM1w (Bld) [Mass fraction]7.9 %High<=5.9C[facility] Va Medical CenterComment on above: Performed By: #### [id number] #### [facility] [address] [place], [place] [address]Fhgqh Panelon 09-01-0342Ohbnralpsgf [Mass/Vol]196 mg/dLNormal 120-200C[facility] Va Medical CenterComment on above:Performed By: #### [id number] #### [facility] [address], [place] [address]Pushjznyxas in HDL [Mass/Vol]36 mg/dLInvalid Interpretation CodeCincinnati Va Medical CenterComment on above:Result Comment: '>= 60 LOW RISK' '<= 40 HIGH RISK'Performed By: #### [id number] #### [facility] [address], [place] [address]Jhmvcdifqrz in LDL [Mass/Vol]104 mg/dLNormal<=129C[facility] Medical CenterComment on above:Performed By: #### [id number] #### [facility] [address], [place] [address]Gjpkyzanucy in VLDL [Mass/Vol]74 mg/dLHigh7-40C[facility] Medical CenterComment on above:Performed By: #### [id number] #### [place] [facility] [address], [place] [address]Gbfiekrchish [Mass/Vol]370 mg/dLHigh<=149C[facility] Va Medical CenterComment on above:Performed By: #### [id number] #### [place] [facility] [address], [place] [address]MTK Screen, Totalon 17-85-6094IZD Scrn Tot.0.3 ng/mLNormal 0.1-3.5FSt. Anthony's HospitalComment on above:Result Comment: The concentration of PSA determined by different manufacturers can vary due to diffe rences in assay methods and reagent specificity. Values obtained from different assay methods cannot be used interchangeably. The methodology used for this result was chemiluminescence using [employer]'s Access Hybritech PSA reagent.Performed By: #### [id number] #### [facility] [address] [place], [place] [address]T MA/Cr Ratioon 09-96-6730Fhvcjsrp/Cr Hvzzp514.3 mg/gm CrHigh .0-30.0C[facility] Va Medical CenterComment on above:Result Comment: 30-300 mg/g Cr indicates an increased risk for diabetic nephropathy. >300 mg/g Cr is consistent with clinical nephropathy.Performed By: #### [id number] #### [facility] [address], [place] [address]O Djwuglnzno33.7 mg/dLInvalid Interpretation CodeCincinnati Va Medical CenterComment on above:Performed By: #### [id number] #### [place] [facility] [address], [place] [address]N Uitfrjyr80.4 mg/dLHigh0.0-1.9[facility] Comment on above:Result Comment: Result Verified by DilutionPerformed By: #### [id number] #### [facility] [address], [place] [address]pZLEsw 32-25-1254vUPC30 mL/min/1.73 k3Zvildw>=59C[facility] Medical CenterComment on above:Performed By: #### [id number] #### [facility] [address] [place], [place] [address]Textdywsdc Visit Summaryon 49-96-1912Kzuhavfplk Visit Summary Ambulatory Visit Summary SULTANA JOSHUA :1980 Visit Date:10/14/2024 Ambulatory Visit Instructions Your [...] AM EDT With: PASQUALE STERN CNP Where: [address] [address]- Medications What How Much When Why Instructions Changed enalapril (enalapril 20 mg Tab) 1 Tablets By Mouth Every day HTN (hypertension) Pickup at [facility]. Changed glipiZIDE (glipiZIDE 10 mg ER Tab) 1 Tablets By Mouth Every day Diabetes Pickup at [facility]. Unchanged amlodipine (amLODIPine 10 mg Tab) See instructions HTN (hypertension) TAKE ONE TABLET BY MOUTH ONCE DAILY Pickup at [facility]. Unchanged metformin (metformin 1000 mg Tab) See instructions Diabetes TAKE ONE TABLET BY MOUTH TWICE A DAY [facility] Unchanged pioglitazone (pioglitazone 45 mg Tab) 1 Tablets By Mouth Every day Diabetes Pickup at [facility] [employer]. Unchanged simvastatin (simvastatin 20 mg Tab) See instructions Hyperlipidemia TAKE ONE TABLET BY MOUTH EVERY DAY [facility] Unchanged citalopram (citalopram 20 mg Tab) 0.5 Tablets By Mouth Every day Contact prescribing physician if questions or concerns Unchanged omeprazole (omeprazole 20 mg Cap-DR) See instructions TAKE ONE CAPSULE BY MOUTH EVERY DAYContact prescribing physician if questions or concerns Pharmacy Information [facility] [employer] [address] [place], [place] [id number] [phone] Allergies No Known Medication Allergies Problems Ongoing [...] you for choosing us for your care. [facility] CenterCHEMISTRYOrdered By: SYSTEM SYSTEM on 49-95-1344Tlrkiki [Mass/Vol]4.6 g/dLNormal3.3 - 5.0 gm/dLRemisol Chem Albumin/Globulin [Mass ratio]1.6 {ratio}Normal1.1 - 2.2Remisol ChemALP [Catalytic activity/Vol]50 [iU]/oBanvpj34 - 98 Int._Unit/LRemisol ChemALT No additional P-5'-P [Catalytic activity/Vol]68 [iU]/dHigh6 - 46 Int._Unit/LRemisol ChemAnion gap [Moles/Vol]12 mmol/LNormal6 - 16 mEq/LRemisol ChemAST [Catalytic activity/Vol]42 [iU]/dNormal5 - 43 Int._Unit/LRemisol ChemBilirubin [Mass/Vol] 1.1 mg/dLNormal0.0 - 1.1 mg/dLRemisol ChemCalcium [Mass/Vol]10.0 mg/dLNormal8.9 - 11.1 mg/dLRemisol ChemChloride [Moles/Vol]102 mmol/JRxlcvu916 - 111 mmol/L Remisol ChemCholesterol [Mass/Vol]188 mg/jCAbgucr675 - 200 mg/dLRemisol Chem Cholesterol in HDL [Mass/Vol]39 mg/dLInvalid Interpretation CodeRemisol Chem Comment on above:Result Comment: '>= 60 LOW RISK' '<= 40 HIGH RISK'Cholesterol in LDL [Mass/Vol]124 mg/dLNormal<=129mg/dLRemisol ChemCholesterol in VLDL [Mass/Vol]45 mg/dLHigh7 - 40 mg/dLRemisol ChemCO2 [Moles/Vol]27 mmol/FTpsjoh97 - 31 mmol/LRemisol ChemCreatinine [Mass/Vol]1.0 mg/dLNormal0.5 - 1.3 mg/dLRemisol YbauoJYL67 mL/min/1.73 w9Khiavh>=59mL/min/1.73 t1Jthnlia ChemGlobulin (S) [Mass/Vol]2.8 g/dLNormal1.4 - 4.0 gm/dLRemisol Chem Glucose [Mass/Vol]273 mg/mPKeuo24 - 199 mg/dLRemisol ChemPotassium [Moles/Vol] 5.1 mmol/LNormal3.5 - 5.3 mmol/LRemisol ChemProtein [Mass/Vol]7.4 g/dLNormal6.0 - 7.8 gm/dLRemisol ChemSodium [Moles/Vol]136 mmol/EFvntpw591 - 145 mmol/LRemisol ChemTriglyceride [Mass/Vol]226 mg/dLHigh<=149mg/dLRemisol ChemUrea nitrogen [Mass/Vol]14 mg/dLNormal5 - 21 mg/dLRemisol ChemUrea nitrogen/Creatinine [Mass ratio]14 mg/ldUasrxc07 - 20Remisol ChemCHEMISTRYOrdered By: Park Wills on 29-27-8031TpU4k (Bld) [Mass fraction]10.2 %High<=5.9%[facility] ChemAutoSSCMPon 79-01-8876Qxitkjv [Mass/Vol]4.6 g/dLNormal3.3-5.0[facility] Comment on above:Performed By: #### [id number] #### [facility] [address] [place] [address]Afdhkha/Globulin (S) [Mass conc ratio]1.5Eiewgw9.1-2.2FSt. Anthony's HospitalComment on above:Performed By: #### [id number] #### [facility] [address], [place] [address]YHW [Catalytic activity/Vol]50 Int._Unit/QAoaeqg96-46EtvuppCincinnati Va Medical CenterComment on above:Performed By: #### [id number] #### [facility] [address] [place] [address]MDR No additional P-5'-P [Catalytic activity/Vol]68 Int._Unit/L High6-46C[facility] Va Medical CenterComment on above:Performed By: #### [id number] #### [facility] [address] [place], [place] [address]Delnu gap [Moles/Vol]12 mmol/LNormal6-16C[facility] Medical CenterComment on above:Performed By: #### [id number] #### [facility] [address] [place] [address]WUB [Catalytic activity/Vol]42 Int._Unit/LNormal5-43C[facility] Va Medical CenterComment on above:Performed By: #### [id number] #### [facility] [address], [place] [address]Oauqsnjup [Mass/Vol]1.1 mg/dLNormal0.0-1.1FSt. Anthony's HospitalComment on above:Performed By: #### [id number] #### [facility] [address], [place] [address]Vnrjvkb [Mass/Vol]10.0 mg/dLNormal8.9-11.1FSt. Anthony's HospitalComment on above:Performed By: #### [id number] #### [facility] [address], [place] [address]Yftgeupe [Moles/Vol]102 mmol/ADhqaud338-515IpkcfcCincinnati Va Medical CenterComment on above:Performed By: #### [id number] #### [facility] [address], [place] [address]SG6 [Moles/Vol]27 mmol/DQjoudx37-11WvbdusCincinnati Va Medical Center Comment on above:Performed By: #### [id number] #### [facility] [address], [place] [address]Uqmmkujgqh [Mass/Vol]1.0 mg/dLNormal0.5-1.3FSt. Anthony's HospitalComment on above:Performed By: #### [id number] #### [facility] [address], [place] [address]Ecftwjgg (S) [Mass/Vol]2.8 g/dLNormal1.4-4.0C[facility] Va Medical CenterComment on above:Performed By: #### [id number] #### [facility] [address], [place] [address]Zxvzwud [Mass/Vol]273 mg/gVHoac76-377JhkoprCincinnati Va Medical CenterComment on above:Performed By: #### [id number] #### [facility] [address], [place] [address]Qmnpiwwoi [Moles/Vol]5.1 mmol/LNormal3.5-5.3FSt. Anthony's HospitalComment on above:Performed By: #### [id number] #### [facility] [address], [place] [address]Qpmuonx [Mass/Vol]7.4 g/dLNormal6.0-7.8C[facility] Va Medical CenterComment on above:Performed By: #### [id number] #### [facility] [address], [place] [address]Ggcjjc [Moles/Vol]136 mmol/XMpaxei461-388VccpvgCincinnati Va Medical CenterComment on above:Performed By: #### [id number] #### [facility] [address], [place] [address]Hjva nitrogen [Mass/Vol]14 mg/dLNormal5-21C[facility] Medical CenterComment on above:Performed By: #### [id number] #### [facility] [address], [place] [address]Giel nitrogen/Creatinine [Mass ratio]14 No HhtujRyivjj63-64 [facility] Medical CenterComment on above:Performed By: #### [id number] #### [facility] [address] [place], [place] [address]Quumwx Medicine Office/Clinic Noteon 37-75-9655Ltnlpk Medicine Office/Clinic NoteFaboston medical center Medicine Office/Clinic Note Chief Complaint A1C follow up [facility] Staff Irma is a 43 year old [...] and hyperlipidemia. He reports he is not monitoringhis blood sugar or blood pressure. He denies [...] right side of his neck and in theright ear. He is wondering if he has [...] Daily, # 90 tab(s), Refills(s) 1, Pharmacy: [facility] 185, cm, 10/14/24 7:46:00 EST, Height/Length Dosing, 121.3, kg, 10/14/24 7:46:00 EST, Weight Dosing glipiZIDE, 10 mg = 1 tab(s), Oral, Daily, # 90 tab(s), Refills(s) 0, Pharmacy: [facility] 185, cm, 08/15/24 8:05:00 EST, Height/Length Dosing, 119.1, kg, 08/15/24 8:05:00 EST, Weight Dosing metformin, See Instructions, TAKE ONE TABLET BY MOUTH TWICE A DAY, # 180 tab(s), Refills(s) 1, Pharmacy: [facility] 185, cm, 10/14/24 7:46:00 EST, Height/Length Dosing, 121.3, kg, 10/14/24 7:46:00 EST, Weight Dosing pioglitazone, 45 mg = 1 tab(s), Oral, Daily, # 90 tab(s), Refills(s) 1, Pharmacy: [facility] 185, cm, 10/14/24 7:46:00 EST, Height/Length Dosing, 121.3, kg, 10/14/24 7:46:00 EST, Weight Dosing Comprehensive Metabolic Panel HgbA1c Lab Specimen Collect [id number] Lab Specimen Collect [id number] Lipid Panel 2. HTN (hypertension) (I10: Essential (primary) hypertension) Stable Controlled Encourage low sodium diet and exercise Amlodipine 10 mg, enalapril 20 mg refilled at today's visit Awaiting laboratory results f/u 3 months Ordered: amlodipine, See Instructions, TAKE ONE TABLET BY MOUTH ONCE DAILY, # 90 tab(s), Refills(s) 1, Pharmacy: [facility] 185, cm, 10/14/24 7:46:00 EST, Height/Length Dosing, 121.3, kg, 10/14/24 7:46:00 EST, Weight Dosing enalapril, 20 mg = 1 tab(s), Oral, Daily, # 90 tab(s), Refills(s) 1, Pharmacy: [facility] 185, cm, 10/14/24 7:46:00 EST, Height/Length Dosing, 121.3, kg, 10/14/24 7:46:00 EST, Weight Dosing enalapril, 10 mg = 1 tab(s), Oral, Daily, # 30 tab(s), Refills(s) 0, Pharmacy: [facility], 185, cm, 07/10/24 7:24:00 EDT, Height/Length Dosing, 119.9, kg, 07/10/24 7:24:00 EDT, WeightDosing glipiZIDE, 10 mg = 1 tab(s), Oral, Daily, # 30 tab(s), Refills(s) 0, Pharmacy: [facility] 185, cm, 08/15/24 8:05:00 EST, Height/Length Dosing, 11 (more content not included)...NormalCincinnati Va Medical CenterComment on above:Result Comment: Electronically Signed By: PASQUALE STERN CNP\Date and Time Signed: 10/14/24 08:34 VJUEcdL9raa 88-92-0927ZaE5r (Bld) [Mass fraction]10.2 %High<=5.9C[facility] Va Medical CenterComment on above:Performed By: #### [id number] #### [facility] [address] [facility], [place] [address]Tstbn Panelon 27-06-0795Podduvuchwm [Mass/Vol]188 mg/dLNormal 120-200C[facility] Va Medical CenterComment on above:Performed By: #### [id number] #### [facility] [address] [place], [place] [address]Kjoqhhwmzlf in HDL [Mass/Vol]39 mg/dLInvalid Interpretation CodeCincinnati Va Medical CenterComment on above:Result Comment: '>= 60 LOW RISK' '<= 40 HIGH RISK'Performed By: #### [id number] #### [facility] [address] [place], [place] [address]Bbksdhsbtjc in LDL [Mass/Vol]124 mg/dLNormal<=129C[facility] Medical CenterComment on above:Performed By: #### [id number] #### [facility] [address] [place], [place] [address]Tknuxpzxtsq in VLDL [Mass/Vol]45 mg/dLHigh7-40C[facility] Medical CenterComment on above:Performed By: #### [id number] #### [facility] [address] [place], [place] [address]Trvkkmehpyji [Mass/Vol]226 mg/dLHigh<=149C[facility] Va Medical CenterComment on above:Performed By: #### [id number] #### [facility] [address] [place], [place] [address]Ekkcjmr Educationon 72-28-0237Pbtnfht EducationPatient EducationNormalCincinnati Va Medical CentereGFRon 48-77-3900kXLO85 mL/min/1.73 m2 Normal>=59C[facility] Medical CenterComment on above:Performed By: #### [id number] #### [facility] [address] [place], [place] [address]Wekfzg Medicine Office/Clinic Noteon 72-99-0415Hqfqcf Medicine Office/Clinic NoteFaboston medical center Medicine Office/Clinic Note Chief Complaint Follow up [...] Daily, # 30 tab(s), Refills(s) 0, Pharmacy: [facility] 185, cm, 08/15/24 8:05:00 EST, Height/Length Dosing, 119.1, kg, 08/15/24 8:05:00 EST, Weight Dosing 2. Diabetes (E11.9: Type 2 diabetes mellitus without complications) Uncontrolled Ordered: glipiZIDE, 10 mg = 1 tab(s), Oral, Daily, # 30 tab(s), Refills(s) 0, Pharmacy: [facility], 185, cm, 08/15/24 8:05:00 EST, Height/Length Dosing, 119.1, kg, 08/15/24 8:05:00 EST, WeightDosing glipiZIDE, 10 mg = 1 tab(s), Oral, Daily, # 90 tab(s), Refills(s) 0, Pharmacy: [facility], 185, cm, 08/15/24 8:05:00 EST, Height/Length Dosing, [...] Daily, # 30 tab(s), Refills(s) 0, Pharmacy: [facility] 185, cm, 08/15/24 8:05:00 EST, Height/Length Dosing, [...] medical support in addressing this problem. Your BMIand weight management will be followed at subsequent visits. Ordered: glipiZIDE, 10 mg = 1 tab(s), Oral, Daily, # 30 tab(s), Refills(s) 0, Pharmacy: [facility], 185, cm, 08/15/24 8:05:00 EST, Height/Length Dosing, [...] medical support in addressing this problem. Your BMIand weight management will be followed at subsequent visits. Ordered: glipiZIDE, 10 mg = 1 tab(s), Oral, Daily, # 30 tab(s), Refills(s) 0, Pharmacy: [facility], 185, cm, 08/15/24 8:05:00 EST, Height/Length Dosing, 119.1, kg, 08/15/24 8:05:00 EST, Weight Dosing Follow-up No qualifying data available Patient Education Managing Your Hypertension Hypertension, Adult, Dzqu-ir-Rprc Problem List/Past Medical History Ongoing Abscess of left external cheek BMI 34.0-34.9,adult BMI 35.0-35.9,adult Depression Diabetes HTN (hypertension) Hyperlipidemia Obesity (BMI 30-39.9) Vapes nicotine containing substance Historical No qualifying data Procedure/Surgical History Anterior cruciate ligament of knee joint, Photorefractive keratectomy. Medications amLODIPine 10 mg Tab, 10 mg= 1 tab(s (more content not included)...[facility] CenterComment on above:Result Comment: Electronically Signed By: PASQUALE STERN CNP\.br\Date and Time Signed: 08/15/24 08:53 ESTAmbulatory Visit Summaryon 21-52-2734Sudklyppry Visit SummaryAmbulatory Visit Summary SULTANA JOSHUA :1980 Visit Date:07/10/2024 [...] AM EST With: PASQUALE STERN CNP Where: [facility] [address] [place] [address]- You Need to Schedule the Following Appointments Follow Up with PASQUALE STERN CNP [facility] When: Within 4 weeks Comments: HTN Where: [address] [place] [phone] Business (1) You Need to Complete the Following HgbA1c, Blood, Routine collect, 07/10/24, Order for future visit, Lab Collect, Diabetes, Print Label By Order Location Medications What How Much When Why Instructions Changed enalapril (enalapril 10 mg Tab) 1 Tablets By Mouth Every day HTN (hypertension) Pickup at [facility] Changed enalapril (enalapril 20 mg Tab) [...] Tablets By Mouth Every day Pharmacy Information [facility]: [address] [place], [place] [id number] [phone] Allergies No Known Medication Allergies Problems Ongoing [...] you for choosing us for your care. [facility] CenterCHEMISTRYOrdered By: Sakina Langley on 43-50-7233XnK2r (Bld) [Mass fraction]10.4 %High<=5.9%[facility] ChemAutoSS Family Medicine Office/Clinic Noteon 74-20-6593[facility] Medicine Office/Clinic NoteFaboston medical center Medicine Office/Clinic Note HPI Staff Sultana is a 43 year old male presenting with 2m follow up to medication changes. Elaine discontinued @[facility]IN[facility] & enalapril increased to 20mg. 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 HTN (hypertension) (I10: Essential (primary) hypertension) Continue the enalapril 20 mg one tablet daily and the amlodipine 10 mg daily Add enalapril, 10 mg one tablet daily - may take with the 20 mg tablet Encourage low sodium diet & exercise f/u in 4 weeks Ordered: enalapril, 10 mg = 1 tab(s), Oral, Daily, # 30 tab(s), Refills(s) 0, Pharmacy: [facility], 185, cm, 07/10/24 7:24:00 EDT, Height/Length Dosing, 119.9, kg, 07/10/24 7:24:00 EDT, WeightDosing Lab Specimen Collect [id number] 3. Former smoker (Z87.891: Personal history of nicotine dependence) Encouraged to continue as a non-smoker Ordered: Lab Specimen Collect [id number] 4. BMI 35.0-35.9,adult (Z68.35: Body mass index [BMI] 35.0-35.9, adult) The standard range for ages 18 and older is >=18.5 and < 25 kg/m2. Your BMI today was above this range, this falls in the overweight to obese category and there are medical benefits to weight loss. We can offer counselling, referral, and/or medical support in addressing this problem. Your BMIand weight management will be followed at subsequent visits. Ordered: Lab Specimen Collect [id number] 5. Exogenous obesity (E66.09: Other obesity due to excess calories) The standard range for ages 18 and older is >=18.5 and < 25 kg/m2. Your BMI today was above this range, this falls in the overweight to obese category and there are medical benefits to weight loss. We can offer counselling, referral, and/or medical support in addressing this problem. Your BMIand weight management will be followed at subsequent visits. Ordered: Lab Specimen Collect [id number] Follow-up With When Contact Information LEENA SALAMANCA, PASQUALE Avila, TORRES Within [address] [place] [phone] Business (1) Additional Instructions: HTN Patient [...] Tab, 5 mg= 1 (more content not included)...NormalCincinnati Va Medical CenterComment on above:Result Comment: Electronically Signed By: PASQUALE STERN CNP\.br\Date and Time Signed: 07/10/24 10:58 QXDPmqY7wec 07-10-2024 HbA1c (Bld) [Mass fraction]10.4 %High<=5.9C[facility] Va Medical CenterComment on above:Performed By: #### [id number] #### [facility] [address] [place], [place] [address]Nbqmxfivfv Visit Summaryon 21-51-4463Gzemmiqrql Visit Summary Ambulatory Visit Summary SULTANA JOSHUA :1980 Visit Date:05/15/2024 Ambulatory Visit Instructions Your Diagnosis [...] AM EDT With: PASQUALE STERN CNP Where: [address] [address] Medications What How Much When Why Instructions [...] you for choosing us for your care. [facility] Medicine Office/Clinic Noteon 40-01-2556Nhjjjr Medicine Office/Clinic NoteW[facility] Medicine Office/Clinic Note Chief Complaint f/u to [...] Daily, # 90 tab(s), Refills(s) 0, [facility] 185, cm, 05/15/24 7:36:00 EDT, Height/Length Dosing, 121.8, kg, 05/15/24 7:36:00 EDT, Weight Dosing glipiZIDE, 5 mg = 1 tab(s), Oral, Daily, # 90 tab(s), Refills(s) 0, Pharmacy: [facility] 185, cm, 04/09/24 7:36:00 EDT, Height/Length Dosing, [...] Daily, # 90 tab(s), Refills(s) 0, Pharmacy: [facility] 185, cm, 05/15/24 7:36:00 EDT, Height/Length Dosing, [...] Daily, # 90 tab(s), Refills(s) 0, Pharmacy: [facility] 185, cm, 05/15/24 7:36:00 EDT, Height/Length Dosing, [...] medical support in addressing this problem. Your BMIand weight management will be followed at subsequent visits. Ordered: enalapril, 20 mg = 1 tab(s), Oral, Daily, # 90 tab(s), Refills(s) 0, Pharmacy: [facility] 185, cm, 05/15/24 7:36:00 EDT, Height/Length Dosing, 121.8, kg, 05/15/24 7:36:00 EDT, Weight Dosing 5. Vapes nicotine containing substance (Z72.0: Tobacco use) Ordered: enalapril, 20 mg = 1 tab(s), Oral, (more content not included)...[facility] Medical CenterComment on above:Result Comment: Electronically Signed By: PASQUALE STERN CNP\.br\Date and Time Signed: 05/15/24 08:43 EDTProvider Letteron [id number] LetterProvider Letter May 15, 2024 SLUTANA JOSHUA [address] [place] [phone] : 1980 To Whom It May Concern, Please excuse above patient from work, Sultana did have an appointment this morning 05-15-24 Date of Illness: From: _ To: _ May Return to Work On:05-15-24 Restrictions: _ Comments: _ Sincerely, Family Medicine [address] [address] RnfbszYqhkwzCincinnati VA Medical CenterAmbulatory Visit Summaryon 49-18-1806Gfixdkgqny Visit SummaryAmbulatory Visit Summary SULTANA JOSHUA :1980 Visit Date:04/09/2024 [...] AM EDT With: PASQUALE STERN CNP Where: [facility] [place] [id number] Medications What How Much When Why Instructions [...] you for choosing us for your care. [facility] Medicine Office/Clinic Noteon [phone] Medicine Office/Clinic NoteWesson [facility] Hospital Medicine Office/Clinic Note HPI Staff Sultana is [...] medical support in addressing this problem. Your BMIand weight management will be followed at subsequent [...] medical support in addressing this problem. Your BMIand weight management will be followed at subsequent [...] days ago Tobacco Use:. Current vaping or e- cigarette use SmokelessTobacco Use:. Vaping, 04/09/2024 Family History Diabetes mellitus type 2: Father. Mitral valve disorder: Father. Immunizations Vaccine Date Status Comments pneumococcal 23-valent vaccine 11/07/2021 Recorded 2023-10-26: VIS DATE: 07/16/2019[facility] CenterComment on above:Result Comment: Electronically Signed By: PASQUALE STERN CNP\.br\Date and Time Signed: 04/09/24 13:10 EDTProvider Letteron [phone] LetterProvider Letter April 09, 2024 SULTANA JOSHUA [address] [place] [phone] : 1980 To Whom It May Concern, Please excuse above patient from work due to medical reasons Date of Illness: From: _04-08-24 To: _patient had appt. 04-09-24 @ 7:20 a.m. May Return to Work On:04-09-24 Restrictions: _NONE Comments: _ Sincerely, Family Medicine [address] [address] OrjsdpDuvyngWexner Medical CenterAmbulatory Visit Summaryon [id number] Visit SummaryAmbulatory Visit Summary SULTANA JOSHUA :1980 Visit Date:03/18/2024 [...] AM EDT With: PASQUALE STERN CNP Where: [facility] Medicine Office/Clinic Noteon [phone] Medicine Office/Clinic NoteWesson [facility] Hospital Medicine Office/Clinic Note HPI Staff Sultana is [...] out and will need some to [place] 30 days to cover until mail away [...] Daily, # 30 tab(s), Refills(s) 0, Pharmacy: [facility], 185, cm, 03/18/24 7:22:00 EDT, Height/Length Dosing, 119.9, kg, 03/18/24 7:22:00 EDT, WeightDosing omeprazole, 20 mg = 1 cap(s), Oral, Daily, # 30 cap(s), Refills(s) 0, Pharmacy: [facility], 185, cm, 03/18/24 7:22:00 EDT, Height/Length [...] medical support in addressing this problem. Your BMIand weight management will be followed at subsequent visits. Orders: omeprazole, 20 mg = 1 cap(s), Oral, Daily, before breakfast, # 90 cap(s), Refills(s) 1, Pharmacy: [facility] 185, cm, 03/18/24 7:22:00 EDT, Height/Length Dosing, 119.9, kg, 03/18/24 7:22:00 EDT, Weight Dosing Follow-up With When Contact Information PASQUALE STERN CNP, FAM Within [address] [place] [phone] [facility] (1) Additional Instructions: HTN Patient Education Heart Attack, Cwrm-vr-Ehno Problem List/Past Medical History Ongoing Abscess of [...] days ago Tobacco Use:. Current vaping or e- cigarette use SmokelessTobacco Use:. Vaping, 03/18/2024 Family History Diabetes mellitus type 2: Father. Mitral valve disorder: Father. Immunizations Vaccine Date Status Comments pneumococcal 23-valent vaccine 11/07/2021 Record (more content not included)... [facility] CenterComment on above:Result Comment: Electronically Signed By: PASQUALE STERN CNP\.br\Date and Time Signed: 03/18/24 07:59 EDT Provider Letteron [phone] LetterProvider Letter March 18, 2024 SULTANA JOSHUA [address] [place] [id number] : 1980 To Whom It May Concern, Please excuse above patient from work, Sultana did have an appointment @ 7:20 a.m. this morning with Pasquale Stern NP. Date of Illness: From: _ To: _ May Return to Work On:03-18-24 Restrictions: _ Comments: _ Sincerely, Family Medicine [address] [address] AxvepgRslnumCincinnati VA Medical CenterCHEMISTRYOrdered By: SYSTEM SYSTEM on 49-51-2886Phxddmo [Mass/Vol]4.5 g/dLNormal3.3 - 5.0 gm/dLRemisol Chem Albumin DL <= 20 mg/L (U) [Mass/Vol]91.8 mg/dLHigh0.0 - 1.9 mg/dLRemisol Chem Albumin/Globulin [Mass ratio]1.6 {ratio}Normal1.1 - 2.2Remisol ChemALP [Catalytic activity/Vol]70 [iU]/kRvnydx29 - 98 Int._Unit/LRemisol ChemALT No additional P-5'-P [Catalytic activity/Vol]97 [iU]/dHigh6 - 46 Int._Unit/LRemisol ChemAnion gap [Moles/Vol]13 mmol/LNormal6 - 16 mEq/LRemisol ChemAST [Catalytic activity/Vol]74 [iU]/dHigh5 - 43 Int._Unit/LRemisol ChemBilirubin [Mass/Vol]0.8 mg/dLNormal0.0 - 1.1 mg/dLRemisol ChemCalcium [Mass/Vol]9.3 mg/dLNormal8.9 - 11.1 mg/dLRemisol ChemChloride [Moles/Vol]100 mmol/JGzi712 - 111 mmol/LRemisol ChemCholesterol [Mass/Vol]168 mg/jWCjkqbb007 - 200 mg/dLRemisol ChemCholesterol in HDL [Mass/Vol]26 mg/dLInvalid Interpretation CodeRemisol ChemComment on above:Result Comment: '>= 60 LOW RISK' '<= 40 HIGH RISK'Cholesterol in LDL [Mass/Vol]89 mg/dLNormal<=129mg/dLRemisol ChemCholesterol in VLDL [Mass/Vol]Unable to Calculate mg/dLInvalid Interpretation Code7 - 40 mg/dLRemisol ChemComment on above:Result Comment: 'UNABLE TO REPORT. TRIG > 400 mg/dl'CO2 [Moles/Vol]25 mmol/QRwryde02 - 31 mmol/L Remisol ChemCreatinine [Mass/Vol]1.0 mg/dLNormal0.5 - 1.3 mg/dLRemisol ChemeGFR 95 mL/min/1.73 p7Edpwec>=59mL/min/1.73 t0Psbkvbr ChemGlobulin (S) [Mass/Vol]2.9 g/dLNormal1.4 - 4.0 gm/dLRemisol ChemGlucose [Mass/Vol]316 mg/uNKehq83 - 199 mg/dLRemisol ChemPotassium [Moles/Vol]4.3 mmol/LNormal3.5 - 5.3 mmol/LRemisol ChemProtein [Mass/Vol]7.4 g/dLNormal6.0 - 7.8 gm/dLRemisol Chem Protein/Creatinine (U) [Ratio]152.40 mg/gm CrNormal0.00 - 200.00 mg/gm CrRemisol ChemSodium [Moles/Vol]134 mmol/FKyp408 - 145 mmol/LRemisol ChemTriglyceride [Mass/Vol]466 mg/dLHigh<=149mg/dLRemisol ChemU Gqxuggebqw88.2 mg/dLInvalid Interpretation CodeRemisol ChemUr Total Uyjeiwe280.2 mg/dLInvalid Interpretation CodeRemisol ChemUrea nitrogen [Mass/Vol]16 mg/dLNormal5 - 21 mg/dLRemisol Chem Urea nitrogen/Creatinine [Mass ratio]16 mg/ocJhmfjh21 - 20Remisol ChemCHEMISTRY Ordered By: Chadwick Barrera on 82-06-6019PsQ1g (Bld) [Mass fraction]11.5 %High <=5.9%[facility] ChemAutoSSCMPon 09-63-3775Wqgukoo [Mass/Vol]4.5 g/dLNormal3.3-5.0 [facility] Medical CenterComment on above:Performed By: #### [id number] #### [facility] [address] [place], [place] [address]Shkxnue/Globulin (S) [Mass conc ratio]1.3Qtquxu1.1-2.2Fisher [facility] Orthopaedic InstituteComment on above:Performed By: #### [id number] #### [facility] [address] [place], [place] [address]NTZ [Catalytic activity/Vol]70 Int._Unit/CIshjdf30-02IfyeprCincinnati Va Medical CenterComment on above:Performed By: #### [id number] #### [facility] [address] [place], [place] [address]IXB No additional P-5'-P [Catalytic activity/Vol]97 Int._Unit/L High6-46C[facility] Va Medical CenterComment on above:Performed By: #### [id number] #### [facility] [address] [place], [place] [address]INK [Catalytic activity/Vol]74 Int._Unit/LHigh5-43C[facility] Va Medical CenterComment on above:Performed By: #### [id number] #### [facility] [address] [place], [place] [address]Lurcswttg [Mass/Vol]0.8 mg/dLNormal0.0-1.1FSt. Anthony's HospitalComment on above:Performed By: #### [id number] #### [facility] [address] [place], [place] [address]Bckagngx (S) [Mass/Vol]2.9 g/dLNormal1.4-4.0C[facility] Va Medical CenterComment on above:Performed By: #### [id number] #### [facility] [address] [place], [place] [address]Hpvrfdv [Mass/Vol]7.4 g/dLNormal6.0-7.8C[facility] Va Medical CenterComment on above:Performed By: #### [id number] #### [facility] [address] [place], [place] [address]Fenpq gap [Moles/Vol]13 mmol/LNormal6-16[facility] Medical CenterComment on above:Performed By: #### [id number] #### [facility] [address] [place], [place] [address]Kfyhpod [Mass/Vol]9.3 mg/dLNormal8.9-11.1FSt. Anthony's HospitalComment on above:Performed By: #### [id number] #### [facility] [address] [place], [place] [address]Gllorhym [Moles/Vol]100 mmol/BXua765-194FbmphdCincinnati Va Medical CenterComment on above:Performed By: #### [id number] #### [facility] [address] [place], [place] [address]QN8 [Moles/Vol]25 mmol/VZmurmr56-30HwtwvsCincinnati Va Medical Center Comment on above:Performed By: #### [id number] #### [facility] [address] [place], [place] [address]Zflhlktqkw [Mass/Vol]1.0 mg/dLNormal0.5-1.3FSt. Anthony's HospitalComment on above:Performed By: #### [id number] #### [facility] [address], [place] [address]Faqdoqi [Mass/Vol]316 mg/yYJjiw70-910AqbsvhCincinnati Va Medical CenterComment on above:Performed By: #### [id number] #### [facility] [address], [place] [address]Ilpzskphq [Moles/Vol]4.3 mmol/LNormal3.5-5.3FSt. Anthony's HospitalComment on above:Performed By: #### [id number] #### [facility] [address] [place], [place] [address]Utouxv [Moles/Vol]134 mmol/SKmx898-106DmhnkbCincinnati Va Medical CenterComment on above:Performed By: #### [id number] #### [facility] [address] [place], [place] [address]Zllh nitrogen [Mass/Vol]16 mg/dLNormal5-21C[facility] Medical CenterComment on above:Performed By: #### [id number] #### [facility] [address] [place], [place] [address]Nfea nitrogen/Creatinine [Mass ratio]16 No NetpkRphhsq10-27 [facility] CenterComment on above:Performed By: #### [id number] #### [facility] [address] [place], [place] [address]AsuW3cxd 40-73-0259XoS2m (Bld) [Mass fraction]11.5 %High<=5.9 [facility] CenterComment on above:Performed By: #### [id number] #### [facility] [address] [place], [place] [address]Ikrco Panelon 16-27-1092Xooqoqipjqy in VLDL [Mass/Vol]UTC Abnormal7-40C[facility] Va Medical CenterComment on above:Result Comment: 'UNABLE TO REPORT. TRIG > 400 mg/dl' Result verified by Discern Rule. Performed result UT (Unable to Calculate) was sent as an Alpha code due the inability to calculate a valid numeric value. Performed By: #### [id number] #### [facility] [address] [place], [place] [address]Gcvhnfgtsze [Mass/Vol]168 mg/zVWxhlul050-978GrvrukCincinnati Va Medical CenterComment on above:Performed By: #### [id number] #### [facility] [address] [place], [place] [address]Hsuvzmiybba in HDL [Mass/Vol]26 mg/dLInvalid Interpretation CodeCincinnati Va Medical CenterComment on above:Result Comment: '>= 60 LOW RISK' '<= 40 HIGH RISK'Performed By: #### [id number] #### [facility] [address] [place], [place] [address]Zkyvcbrokme in LDL [Mass/Vol]89 mg/dLNormal<=129C[facility] Medical CenterComment on above:Performed By: #### [id number] #### [facility] [address] [place], [place] [address]Fhukmltlbnbi [Mass/Vol]466 mg/dLHigh<=149C[facility] Va Medical CenterComment on above:Performed By: #### [id number] #### [facility] [address] [place], [place] [address]I Microalbon 32-54-2944Ehsoccm DL <= 20 mg/L (U) [Mass/Vol]91.8 mg/dLHigh0.0-1.9C[facility] Medical CenterComment on above:Performed By: #### [id number] #### [facility] [address] [place], [place] [address]E Protein/Creat Ratioon 64-38-4895Qzzwvav/Creatinine (U) [Ratio]152.40 mg/gm CrNormal.00-200.00C[facility] Medical CenterComment on above:Performed By: #### [id number] #### [facility] [address] [place], [place] [address]T Tnnisnmrnr17.2 mg/dLInvalid Interpretation [facility] HospitalComment on above:Performed By: #### [id number] #### [facility] [address] [place], [place] [address]Fc Total Vvmzfvf208.2 mg/dLInvalid Interpretation [facility] HospitalComment on above:Performed By: #### [id number] #### [facility] [address] [place], [place] [address]gHQMnf 92-14-9278jKPU81 mL/min/1.73 e4Gmwypp>=59C[facility] Va Medical CenterComment on above:Order Comment: Order added by Discern Expert. Performed By: #### [id number] #### [facility] [address] [place], [place] [address]Oelhskosbt Visit Summaryon 66-91-4553Qxyphjftkh Visit Summary SULTANA JOSHUA :1980 Visit Date:02/19/2024 [...] mg Cap-DR) simvastatin (simvastatin 20 mg Tab) sulfamethoxazole-trimethoprim (Bactrim 400 mg-80 mg Tab) Procedures Performed Anterior cruciate ligament of knee joint, Photorefractive keratectomy. Discharge Vitals Temperature (Temporal Artery) 36 ?C Heart Rate (Peripheral) 90 Blood Pressure 140/100 Height 185 cm Height 73 in Weight 119.7 kg Weight 263.34 lb BMI 34.97 What to do next Scheduled Follow-Up Appointments 2023 7:00 AM EDT With: Where: [facility] Medicine BellevueInvalid Interpretation [address] [place] [address]- \.br\ You Need to Schedule the Following Appointments\.br\ Follow Up with PASQUALE STERN CNP, FAM When: Within 4 weeks\.br\ Comments:\.br\ HTN\.br\ Where:\.br\ [address]\.br\ [place] [address]\.br\ Business ( 1)\.br\ \.br\ You Need to Complete the Following\.br\ Comprehensive Metabolic Panel, Blood, Routinecollect, 02/19/24, Order for future visit, Lab Collect, [facility]St[facility] Medicine Office/Clinic Noteon 82-30-9587Zjdwse Medicine Office/Clinic NoteChief Complaint Patient in office for med concerns. [...] erection the area tears open and bleed. Hedenies burning with urination or hesitancy. Patient denies [...] Daily, # 30 tab(s), Refills(s) 0, Pharmacy: [facility], 185, cm, 02/19/24 7:35:00 EDT, Height/Length Dosing, 119.7, kg, 02/19/24 7:35:00 EDT, Weight Dosing Comprehensive Metabolic Panel Lipid Panel 3. Yeast infection (B37.9: Candidiasis, unspecified) Ordered: fluconazole, 100 mg = 1 tab(s), Oral, Daily, X 7 day(s), # 7 tab(s), Refills(s) 0, Pharmacy: [facility], 185, cm, 02/19/24 7:35:00 EDT, Height/Length Dosing, 119.7, kg, 02/19/24 7:35:00 EDT, Weight Dosing Orders: pioglitazone, 45 mg = 1 tab(s), Oral, Daily, # 90 tab(s), Refills(s) 1, Pharmacy: [facility], 185, cm, 02/19/24 7:35:00 EDT, Height/Length Dosing, 119.7, kg, 02/19/24 7:35:00 EDT, Weight Dosing sitagliptin, 100 mg = 1 tab(s), Oral, Daily, # 90 tab(s), Refills(s) 1, Pharmacy: [facility], 185, cm, 02/19/24 7:35:00 EDT, Height/Length Dosing, 119.7, kg, 02/19/24 7:35:00 EDT, Weight Dosing Total time spent preparing the chart, conducting of the encounter with the patient and family and time spent documenting, reviewing, and ordering tests was 30 minutes. Follow-up With When Contact Information PASQUALE STERN CNP, FAM Within [address] [place] [phone] [facility] (1) Additional Instructions: HTN Patient Education Genital Yeast Infection, Male Hypertension, Adult, Vset-zl-Lczi Problem List/Past Medical History Ongoing Abscess of [...] Current, Liquor, 1-2 times per month, 10/26/2023 [facility] (more content not included)...[facility]ner Medical CenterComment on above:Result Comment: Electronically Signed By: PASQUALE STERN CNP\Date and Time Signed: 02/19/24 09:03 EDTPatient Educationon 02-19-2024 Patient EducationCardiovascular Hypertension, Adult Hypertension is another name for high blood pressure. High blood pressure forces your heart to workharder to pump blood. This can cause problems [...] at each meal with low-fat (lean) proteins. Low- fat proteins includefish, chicken without skin, eggs, beans, and tofu. [...] your heart to beat faster (aerobic exercise) mostdays of the week. This may include walking, swimming, or biking. ? Get at least 30 minutes of exercise that strengthens your muscles (resistance exercise) at least 3 days a week. This may include lifting weights or doing Pilates. ? Do not smoke or use any products that contain nicotine or tobacco. If you need help quitting, askyour doctor. ? Check your blood pressure at home as told by your doctor. ? Keep all follow-up visits. Medicines ? Take kjij-ttn-nizmfvn and prescription medicines only as told by [...] blood. ? For m (more content not included)...[facility]ner Medical CenterProvider Letteron [id number] Letter February 19, 2024 SULTANA JOSHUA [address] [address] : 1980 To Whom It May Concern, Please excuse above patient from work Sultana does have appt. @ 7:00 a.m. on February Date of Illness: From: _ To: _ May Return to Work On:02-21-24 Restrictions: _NONE Comments: _ Sincerely, [place] [address] IgxtaxZpnptzCleveland Clinic Children's Hospital for RehabilitationProvider Letter February 19, 2024 SULTANA JOSHUA [address] [phone] : 1980 To Whom It May Concern, Please excuse above patient from work, Sultana had an appt this morning at 7:40 a.m. Date of Illness: From: _ To: _ May Return to Work On:02-19-24 Restrictions: _NONE Comments: _ Sincerely, [place] [id number] LidzbpValndgWexner Medical CenterAmbulatory Visit Summaryon [id number] Visit Summary SULTANA JOSHUA :1980 Visit Date:11/30/2023 [...] mg Tab) sitagliptin (Januvia 100 mg Tab) sulfamethoxazole-trimethoprim (Bactrim 400 mg-80 mg Tab) Procedures Performed [...] 1 Tablets By Mouth Every day Unchanged sulfamethoxazole-trimethoprim (Bactrim 400 mg-80 mg Tab) Allergies No [...] you for choosing us for your care. [facility] CenterGeneral Surgery Office/Clinic Noteon [id number] Surgery Office/Clinic NoteChief Complaint 1 month follow up HPI Staff [...] swallowing difficulties, no hearing loss, no ear infection(s),no nose bleeds. Cardiovascular: Normal blood pressure, no [...] with voice recognition artificial intelligence software, specifically Sounday, RB-Doors and or [employer]. Substitutions may have occurred voice recognition and artificial intelligence software. Documentation services were performed after patient or guardian consented to allow [employer] to record this visit. ABBY operator specialist communications and provider reviewed before signing. ABBY: Gillian [...] Comments pneumococcal 23-valent vaccine 11/07/2021 Recorded 2023-10-26: DATE: 07/16/2019[facility] Medical CenterComment on above:Result Comment: Electronically Signed By: Rajat Zeng MD\.br\Date and Time Signed: 11/30/23 12:04 EDT\.br\Electronically Co-Signed By: Gillian Hernandez\.br\Date and Time Co-Signed: 11/30/23 10:10 EDTGeneral Surgery Office/Clinic Noteon 11-05-2023 General Surgery Office/Clinic NoteHPI Staff Sultana is a 42 y.o. male [...] swallowing difficulties, no hearing loss, no ear infection(s),no nose bleeds. Cardiovascular: Normal blood pressure, no [...] with voice recognition artificial intelligence software, specifically Sounday, RB-Doors and or [employer]. Substitutions may have occurred voice recognition and artificial intelligence software. Documentation services were performed after patient or guardian consented to allow [employer] to record this visit. ABBY operator specialist communications and provider reviewed before signing. ABBY: Gillian [...] 23-valent vaccine 11/07/2021 Recorded 2023-10-26: VIS DATE: 07/16/2019[facility] Medical CenterComment on above:Result Comment: Electronically Signed By: Rajat Zeng MD\.br\Date and Time Signed: 11/05/23 15:39 EST\.br\Electronically Co-Signed By: Gillian Hernandez\.br\Date and Time Co-Signed: 11/02/23 09:39 ESTAmbulatory Visit Summaryon [id number] Visit Summary SULTANA JOSHUA :1980 Visit Date:11/02/2023 [...] mg Tab) sitagliptin (Januvia 100 mg Tab) sulfamethoxazole-trimethoprim (Bactrim 400 mg-80 mg Tab) Procedures Performed Anterior cruciate ligament of knee joint, Photorefractive keratectomy. What to do next Scheduled Follow-Up Appointments Sunday 8:40 AM EDT With: Rajat Zeng MD Where: [facility]burgProvider Letteron [id number] Letter November 02, 2023 SULTANA JOSHUA [address] [place] [phone] : 1980 To Whom It May Concern, Please excuse above patient from work. 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 male here for abscess on neck Patient was seen at [facility] on 10/21/2023 Bedside US done showing multiple [...] swallowing difficulties, no hearing loss, no ear infection(s),no nose bleeds. Cardiovascular: Normal blood pressure, no [...] and then packed using quarter inch Nu Gauze.A clean dressing was applied. Assessment/Plan 1. Abscess [...] with voice recognition artificial intelligence software, specifically Sounday, RB-Doors and or [employer]. Substitutions may have occurred due to the inherent limitations of voice recognition and artificial intelligence software. Documentation services were performed after patient or guardian consented to allow [employer] to record this visit. ABBY operator specialist communications and provider reviewed before signing. ABBY: Therative Follow-up No qualifying data available Patient Education [...] History Diabetes mellitus type (more content not included)...[facility]ner Medical CenterComment on above:Result Comment: Electronically Signed By: Rajat Zeng MD\.br\Date and Time Signed: 10/29/23 08:41 EST\.br\Electronically Co- Signed By: Giovanna Sewell\.br\Date and Time Co-Signed: 10/26/23 11:30 EST Ambulatory Visit Summaryon [id number] Visit Summary SULTANA JOSHUA :1980 Visit Date:10/26/2023 [...] mg Tab) sitagliptin (Januvia 100 mg Tab) sulfamethoxazole-trimethoprim (Bactrim 400 mg-80 mg Tab) Procedures Performed Anterior cruciate ligament of knee joint, Photorefractive keratectomy. Discharge Vitals Heart Rate (Peripheral) 90 Blood Pressure 180/100 Height 74 in Height 188 cm Weight 275.66 lb Weight 125.3 kg BMI 35.45 What to do next Scheduled Follow-Up Appointments Sunday 10:20 AM EST With: Azucena ARRIAGA, Rajat Hurd Where: [facility] General Surgery [facility] Medicine Office/Clinic Noteon 06-21-1206Xugqvg Medicine Office/Clinic NoteChief Complaint ED follow up and Establish care HPI Staff Establish Care: History: Any previous diagnosis: DM, HTN History of seeing any specialist: n/a When was your last doctors visit: unknown Last provider: Monica Durán Any recent labs: Last August in [facility] UTD: Colonoscopy: no Acute: Current issues/complaints: ER followup: Hospital: [facility] Visit date:10/20/2023 Symptoms the patient presented with: abscess on face Current concerns: is getting worse even with ATB Cephalexin 500 mg qid and sulfamethoxazole-TMP DS bid, mupirocin History of Present Illness 42 year old male patient presents today to establish care with this provider and to f/u on his mostrecent ED visit. He has a history of HTN, Diabetes, & Hyperlipidemia. He was seen at the [facility] Edfor the abscesses on the left side of his neck on 10/20/2023. He reports they gave him two oral ATB's and mupirocin topical for the area. He states they wanted him to make an appointment with Dr. Orourke, general surgery in [place] but told him to come to a pcp first for the referral. He states theydid an US of his neck and determined there were 3-4 pockets that would need to be removed so the EDdoctor chose not to jerry the abscesses. He [...] no food allergies, no recurrent infections, no impairedimmunity Additional ROS info: Except as noted in [...] compresses to the area Awaiting report from [facility] ED Appointment today at 10 AM with General Surgeon at [facility] Ordered: [facility] Internal Ambulatory Referral 2. Encounter to establish [...] medical support in addressing this problem. Your BMIand weight management will be followed at subsequent visits. Follow-up With When Contact Information PASQUALE STERN CNP, FAM Within 2 to [address] [place] [address] 44 (more content not included)...[facility]ner Medical CenterComment on above:Result Comment: Electronically Signed By: PASQUALE STERN CNP\.br\Date and Time Signed: 10/26/23 10:55 ESTPatient Educationon [id number] EducationGastroenterology Obesity, Adult Obesity is the condition of [...] food choices, such as grocery stores and [employer]. What are the signs or symptoms? The [...] set a weight-loss goal that is healthy andreasonable for you. ? Limit your screen time. ? Find ways to reward yourself that do not involve food. ? Do not drink alcohol if: ? Your health care provider tells you not to drink. ? You are , may be , or are planning to become . ? If you drink alcohol: ? Limit how much you have to (more content not included)...[facility] EducationInfectious Disease Skin Abscess A skin abscess is [...] these instructions at home: Medicines ? Take jcwc-hln-ncacapz and prescription medicines only as told by your doctor. ? If you were prescribed an antibiotic medicine, take it as told by your doctor. Do not stop takingthe antibiotic even if you start to feel [...] cannot use soap and water, use hand cold strip roller. ? Check your abscess every day for signs that the infection is getting worse. Check for: ? More redness, swelling, or pain. ? More fluid or blood. ? Warmth. ? More pus or a bad smell. General instructions ? To avoid spreading the infection: ? Do not share personal care items, towels, or hot tubs with others. ? Avoid making osvf-zt-mzjb contact with other people. ? Keep all [...] cut or scrape. It can also be causedby blocked oil and sweat glands or infected hair follicles. ? Follow your doctor's instructions on caring for your abscess, taking medicines, preventing infections, and keeping follow-up visits. This information is not intended to replace advice given to you by your health care provider. Make sure you discuss any questions you have with your health care provider. Document Revised: 12/07/2022 Document Reviewed: 06/12/2022 [employer] Patient Education ? 2022 [employer].[facility] Provider Letteron [id number] Letter October 26, 2023 SULTANA JOSHUA [address] [place] [id number] : 1980 To Whom It May Concern, Please excuse above patient from work. Date of Illness: From: 10/26/2023 To: 10/28/2023 May Return to Work On:10/29/23 Restrictions: _ Comments: _ Sincerely, Rajat Zeng MD [facility] General SurgeryWexner Medical CenterBasic Metabolic Profon 17-51-1758Guafl gap [Moles/Vol]11 mmol/LNormal9-17[facility]pelier HospitalComment on above:Performed By: #### ESTUARDO BMP, MG #### [facility] [address] [place] [address] [place] [address] Wire Coiler: Norm Frank MDBUN/CRE Csjhb52Nhwjtm2-05Qpbwf [facility] Comment on above:Performed By: #### ESTUARDO BMP, MG #### [facility] [address] [place] [address] Wire Coiler: SUSANA Fairchildalcium [Mass/Vol]9.9 mg/dLNormal8.6-10.4[facility]ier HospitalComment on above:Performed By: #### CDP BMP, MG #### [address] [place] [address] Wire Coiler: SUSANA Fairchildhloride [Moles/Vol]106 mmol/LFbusli95-384UsmeoParkview Health Montpelier HospitalComment on above:Performed By: #### CDP, BMP, MG #### [address] [place] [address] Wire Coiler: oNrm Frank MDCO2 [Moles/Vol]24 mmol/PNfeqpl82-81FgviwParkview Health Montpelier HospitalComment on above:Performed By: #### CDP, BMP, MG #### [address] [place], [place] [address]83 Wire Coiler: SUSANA Fairchildreatinine [Mass/Vol]0.9 mg/dLNormal0.7-1.2MProMedica Flower HospitalComment on above:Performed By: #### ESTUARDO BMP, MG #### [address] [place] [address] Wire Coiler: Norm Frank MDGFR/1.73 sq M.predicted among non-blacks MDRD (S/P/Bld) [Vol rate/Area]mL/min/{1.73_m2}Normal>60[facility]ier HospitalComment on above:Result Comment: These results are not intended for [...] or following therapy that affects renal tubular secretion.Performed By: #### CDP, BMP, MG #### [address] [place] [address] Wire Coiler: Norm Frank MDGlucose [Mass/Vol]146 mg/rFYfyd10-65BsvclProMedica Flower HospitalComment on above:Performed By: #### CDP, BMP, MG #### [address] [place], [facility]83 Wire Coiler: CAIO Fairchildotassium [Moles/Vol]4.4 mmol/LNormal3.7-5.3[facility] HospitalComment on above:Performed By: #### CDP, BMP, MG #### [address] [place], [place] [address] Wire Coiler: Norm Frank MDSodium [Moles/Vol]141 mmol/ETnhhip158-936Uhuaj [facility] HospitalComment on above:Performed By: #### CDP, BMP, MG #### [address] [place], [place] [address] Wire Coiler: Norm Frank MDUrea nitrogen [Mass/Vol]13 mg/dLNormal6-20MerSelect [facility] HospitalComment on above:Performed By: #### CDP, BMP, MG #### [address] [place], [facility]83 Wire Coiler: TRISTA Fairchild with Diffon 52-28-0769Dam. Basophil0.04 k/uL Normal0.00-0.20MerSelect Medical Specialty Hospital - Columbus HospitalComment on above:Performed By: #### CDP, BMP, MG #### [address] [place], [place] [address] Wire Coiler: Sunny Fairchild.Imm.Granulocyte<0.22Kzzjgb6.00-0.30MerSelect Medical Specialty Hospital - Columbus HospitalComment on above:Performed By: #### CDP, BMP, MG #### [address] [place] [id number] Wire Coiler: Sunny Fairchild.Neutrophil (Seg)2.92 k/uLNormal1.50-8.10MerSelect [facility] Specialty Hospital - [facility] HospitalComment on above:Performed By: #### CDP, BMP, MG #### [address] [place], [place] [address] Wire Coiler: Norm Frank MDBasophils/100 WBC (Bld)1 %Normal0-2[facility] HospitalComment on above:Performed By: #### CDP, BMP, MG #### [address] [place] [address] Wire Coiler: Norm Frank MDEosinophils (Bld) [#/Vol]0.26 10*3/uLNormal 0.00-0.44MerSelect [facility] Hospital - [facility] HospitalComment on above:Performed By: #### CDP, BMP, MG #### [address] [place], [place] [address] Wire Coiler: Norm Frank MDEosinophils/100 WBC (Bld)4 %Normal1-4MerSelect [facility] HospitalComment on above:Performed By: #### CDP, BMP, MG #### [address] [place], [place] [address] Wire Coiler: Norm Frank MDErythrocyte distribution width (RBC) [Ratio]12.6 % Djhweu75.8-14.4[facility] HospitalComment on above:Performed By: #### CDP, BMP, MG #### [address] [place], [place] [address] Wire Coiler: Norm Frank MDHematocrit (Bld) [Volume fraction]45.5 %Normal 40.7-50.3[facility] HospitalComment on above:Performed By: #### CDP, BMP, MG #### [address] [place] [id number] Wire Coiler: Norm Frank MDHemoglobin (Bld) [Mass/Vol]16.4 g/dLNormal 13.0-17.0MerSelect [facility]ty Hospital [facility] HospitalComment on above:Performed By: #### CDP, BMP, MG #### [address] [place], [place] 1730283 Wire Coiler: Boone Fairchildture granulocytes/100 WBC (Bld)0 %Sumdfy4NzsdoParkview Health Montpelier HospitalComment on above:Performed By: #### CDP, BMP, MG #### [address] [place], [facility]83 Wire Coiler: Norm Frank MDLymphocytes (Bld) [#/Vol]2.51 10*3/uLNormal 1.10-3.70[facility] HospitalComment on above:Performed By: #### CDP, BMP, MG #### [address] [place], [facility]83 Wire Coiler: Izzy Fairchildmphocytes/100 WBC (Bld)39 %Kbmron54-07ZcftmParkview Health Montpelier HospitalComment on above:Performed By: #### CDP, BMP, MG #### [address] [place], [facility]83 Wire Coiler: ISELA Fairchild (RBC) [Entitic mass]34.5 miNawq22.2-33.5[facility] HospitalComment on above:Performed By: #### CDP, BMP, MG #### [address] [place], [facility]83 Wire Coiler: ISELA FairchildC (RBC) [Mass/Vol]36.0 g/pRXtoh82.4-34.8[facility] HospitalComment on above:Performed By: #### CDP, BMP, MG #### [address] [place] [address] Wire Coiler: MARIO FairchildCV (RBC) [Entitic vol]95.6 nQZmecug75.6-102.9 [facility] HospitalComment on above:Performed By: #### CDP, BMP, MG #### [facility] [address] [place], [place] [address]83 Wire Coiler: MARIO Fairchildonocytes (Bld) [#/Vol]0.68 10*3/uLNormal0.10-1.20 [facility] HospitalComment on above:Performed By: #### CDP, BMP, MG #### [address] [place] [address] Wire Coiler: MARIO Fairchildonocytes/100 WBC (Bld)11 %Normal3-12[facility] HospitalComment on above:Performed By: #### CDP, BMP, MG #### [address] [place], [place] [address] Wire Coiler: Norm Frank MDNeutrophil (Seg)45 %Mfeibn41-75Pkmrf [facility] HospitalComment on above:Performed By: #### CDP, BMP, MG #### [address] [place], [place] 0444383 Wire Coiler: Norm Frank MDNRBC Automated0.0 per 100 WBCNormal0.0[facility] HospitalComment on above:Performed By: #### CDP, BMP, MG #### [address] [place], [place] 4438783 Wire Coiler: Marisol Fairchild mean volume (Bld) [Entitic vol]9.8 fL Normal8.1-13.5[facility] HospitalComment on above:Performed By: #### CDP, BMP, MG #### [address] [place], [place] 9[address]83 Wire Coiler: CAIO Fairchildlatelets (Bld) [#/Vol]210 10*3/gXPcxvzk618-906 [facility] HospitalComment on above:Performed By: #### CDP, BMP, MG #### [address] [place], [place] 7549483 Wire Coiler: MICA Fairchild (Bld) [#/Vol]4.76 10*6/uLNormal4.21-5.77[facility] HospitalComment on above:Performed By: #### ESTUARDO BMP, MG #### [facility] [address] [place], [place] [address] Wire Coiler: PARISH Fairchild (d) [#/Vol]6.4 10*3/uLNormal3.5-11.3[facility] HospitalComment on above:Performed By: #### BELLA MARTE, MG #### [facility] [address] [place], [place] 2785883 Wire Coiler: Norm Frank MDCT HEAD WO CONTRASTon 23-36-7023BN HEAD WO CONTRASTEXAMINATION: CT OF THE HEAD WITHOUT CONTRAST 06/22/2023 [...] Signed by: Dakota Bennett MD 06/22/23 Final resultNormalMerConnecticut HospiceCTA HEAD NECK W CONTRASTon [id number] HEAD NECK W CONTRASTEXAMINATION: CTA OF THE HEAD AND NECK WITH [...] Signed by: Virgil Steward MD 06/22/23 Final resultNormalMercy Day Kimball HospitalMagnesiumon 75-35-1567Zdnkjefpi [Mass/Vol]1.8 mg/dLNormal1.6-2.6Mer[facility] HospitalComment on above:Performed By: #### BELLA MARTE MG #### [facility] [address] [place] [address] Wire Coiler: Norm Frank MDHemoglobin A1Con 79-03-6796Aaofnsa [Mass/Vol]146 mg/dLNormMercy Health Urbana HospitalComment on above:Result Comment: The ADA and AACC recommend providing the estimated average glucose result to permit better patient understanding of their HBA1c result.Performed By: #### CP, CBC #### [facility] [address] [place] [address] [place] [place], [place] [address] Wire Coiler: Norm Frank MD #### BVTEST, GLYHGB #### [facility] [employer] [address] [place], [place] 120[address] Wire Coiler: Trenton Carbajal MDHbA1c (Bld) [Mass fraction]6.7 %High4.0-6.0[facility] HospitalComment on above:Performed By: #### CP, CBC #### [facility] [address] [place] [address] [place], [place] [address] Wire Coiler: Norm Frank MD #### BVTEST, GLYHGB #### [facility] [employer] [address] [place], [place] [address] Wire Coiler: Trenton Carbajal MDLipid Panelon 15-74-1553Jsuxxtmjxhl [Mass/Vol] 185 mg/dLNINF - 200 mg/dLBON WESTERN RESERVE HOSPITALComment on above: Cholesterol Guidelines: <200 Desirable 200-240 Borderline >240 Undesirable Cholesterol in HDL [Mass/Vol]37 mg/dLLow40 - PINF mg/dLB[facility] Comment on above: HDL Guidelines: <40 Undesirable 40-59 Borderline >59 Desirable Cholesterol in LDL [Mass/Vol]119 mg/dL0 - 130 mg/dLB[facility] Comment on above: LDL Guidelines: <100 Desirable 100-129 Near to/above Desirable 130-159 Borderline >159 Undesirable Direct (measured) LDL and calculated LDL are not interchangeable tests. Cholesterol.total/Cholesterol in HDL [Mass ratio]5 {ratio}HighNINF - 5B[facility] RESERVE HOSPITALInterpretation and review of laboratory resultsAbnormalBON WESTERN RESERVE HOSPITALTriglyceride [Mass/Vol]144 mg/dLNINF - 150 mg/dLBON WESTERN RESERVE HOSPITALComment on above: Triglyceride Guidelines: <150 Desirable 150-199 Borderline 200-499 High >499 Very high Based on AHA Guidelines for fasting triglyceride, June 2012. [employer] [facility] TIFFIN HOSPITALLipid Profileon 97-06-9833Hwjgmquuhij [Mass/Vol]185 mg/dLNormal<200Mer[facility] HospitalComment on above:Result Comment: Cholesterol Guidelines: <200 Desirable 200-240 Borderline >240 UndesirablePerformed By: #### LIPR #### [facility] [address] [place] [address] Wire Coiler: SUSANA Lopezholesterol in HDL [Mass/Vol]37 mg/dLLow>40Mer[facility] HospitalComment on above:Result Comment: HDL Guidelines: <40 Undesirable 40-59 Borderline >59 DesirablePerformed By: #### LIPR #### [facility] [employer] [address] [place] [address] Wire Coiler: SUSANA Lopezholesterol in LDL [Mass/Vol]119 mg/dLNormal 0-130Mer[facility] HospitalComment on above:Result Comment: LDL Guidelines: <100 Desirable 100-129 Near to/above Desirable 130-159 Borderline >159 Undesirable Direct (measured) LDL and calculated LDL are not interchangeable tests.Performed By: #### LIPR #### [facility] [address] [place] [address] Wire Coiler: Parish Lopez.total/Cholesterol in HDL [Mass ratio]5.0 {ratio}High<5[facility] HospitalComment on above:Performed By: #### LIPR #### [employer] [address] [place] [address] Wire Coiler: Trenton Carbajal MDTriglyceride [Mass/Vol]144 mg/dLNormal<150Mer[facility] HospitalComment on above:Result Comment: Triglyceride Guidelines: <150 Desirable 150-199 Borderline 200-499 High >499 Very high Based on AHA Guidelines for fasting triglyceride, June 2012.Performed By: #### LIPR #### [employer] [address] [place] [id number] Wire Coiler: Trenton Carbajal MDTestosterone Free Bio Totalon 37-68-5050Bvd Hormone Btqkdex11 nmol/L11 - 80 nmol/LBON WESTERN RESERVE HOSPITALTestosterone [Mass/Vol]752 ng/dL220 - 1000 ng/dLBON WESTERN RESERVE HOSPITALTestosterone, Yrlcqkuuqmzc847.5 ng/dL130 - 680 ng/dLBON WESTERN RESERVE HOSPITALCommymichigan medical center alma on above: The concentration of bioavailable testosterone is derived from a mathematical expression based on the constant for the binding of testosterone to albumin and/or sex hormone binding globulin. Testosterone, Rtvf807.3 pg/mL47 - 244 pg/mLBON WESTERN RESERVE HOSPITALCommymichigan medical center alma on above:The concentration of free testosterone is derived from a mathematical expression based on the constant for the binding of testosterone to albumin and/or sex hormone binding globulin. B[facility] RESERVE HOSPITALTestosterone,Bioavailon 32-19-9414Dwq Horm Bind Glob56 nmol/VXtsijl51-34PpahlParkview Health Montpelier HospitalComment on above:Performed By: #### SANJUANITA, CBC #### [address] [place] [address] Wire Coiler: Norm Frank MD #### BVTEST, GLYHGB #### [facility] [employer] [facility] [place], [place] 2649[address] Wire Coiler: Trenton Carbajal MDTest,Lygzzqbc184.5 ng/yKNnuzlo631-839EkzrpParkview Health Montpelier HospitalCommymichigan medical center alma on above:Result Comment: The concentration of bioavailable testosterone is derived from a mathematical expression based on the constant for the binding of testosterone to albumin and/or sex hormone binding globulin.Performed By: #### SANJUANITA, CBC #### [address] [place] [address] Wire Coiler: Norm Frank MD #### BVTEST, GLYHGB #### [facility] [employer] [address] [place] [address] Wire Coiler: Trenton Carbajal MDTestosterone [Mass/Vol]752 ng/zVBywbzs920-4662 [facility] HospitalComment on above:Performed By: #### CP, CBC #### [address] [place] [address] Wire Coiler: Norm Frank MD #### BVTEST, GLYHGB #### [address] [phone] Wire Coiler: Trenton Carbajal MDTestosterone,Kgil297.3 pg/jXFqrpjs83-949YycogParkview Health Montpelier HospitalComment on above:Result Comment: The concentration of free testosterone is derived from a mathematical expression based on the constant for the binding of testosterone to albumin and/or sex hormone binding globulin.Performed By: #### SANJUANITA, CBC #### [address] [place], [place] 152[address]83 Wire Coiler: Norm Frank MD #### BVTEST, GLYHGB #### [address] [id number] Wire Coiler: SUSANA LopezCameron Regional [facility] Center 52-76-5091Wihrkdvohuj distribution width (RBC) [Ratio]12.9 %Gujblf20.8-14.4[facility] HospitalComment on above: Performed By: #### SANJUANITA, CBC #### [address] [place], [place] 8189[address] Wire Coiler: Norm Frank MD #### BVTEST, GLYHGB #### [address] [address] Wire Coiler: Trenton Carbajal MDHematocrit (Bld) [Volume fraction]44.0 %Normal 40.7-50.3MProMedica Flower HospitalComment on above:Performed By: #### SANJUANITA, CBC #### [address] [place], [place] 5622183 Wire Coiler: Norm Frank MD #### BVTEST, GLYHGB #### [address] [phone] Wire Coiler: Trenton Carbajal MDHemoglobin (Bld) [Mass/Vol]15.7 g/dLNormal 13.0-17.0[facility] HospitalComment on above:Performed By: #### CP, CBC #### [address] [place] [phone] Wire Coiler: Norm Frank MD #### BVTEST, GLYHGB #### [place] [address] [place], [place] [address] Wire Coiler: MARIO LopezCH (RBC) [Entitic mass]33.9 hsAmin13.2-33.5 [facility] HospitalComment on above:Performed By: #### CP, CBC #### [address] [place] [phone] Wire Coiler: Norm Frank MD #### BVTEST, GLYHGB #### [place] [address] [place] [address] Wire Coiler: MARIO LopezCHC (RBC) [Mass/Vol]35.7 g/rSEjkg60.4-34.8[facility] HospitalComment on above:Performed By: #### CP, CBC #### [address] [place] [phone] Wire Coiler: Norm Frank MD #### BVTEST, GLYHGB #### [place] [address] [place] [address] Wire Coiler: MARIO LopezCV (RBC) [Entitic vol]95.0 dRJbgjsc57.6-102.9 [facility] HospitalComment on above:Performed By: #### CP, CBC #### [address] [place] [address] Wire Coiler: Norm Frank MD #### BVTEST, GLYHGB #### [address] [address] Wire Coiler: Trenton Carbajal MDNRBC Automated0.0 per 100 WBCNormal0.0[facility] on above:Performed By: #### CP, CBC #### [address] [place] [phone] ( Wire Coiler: Norm Frank MD #### BVTEST, GLYHGB #### [address] [address] Wire Coiler: Marisol Lopez mean volume (Bld) [Entitic vol]10.6 fL Normal8.1-13.5[facility] HospitalCommymichigan medical center alma on above:Performed By: #### SANJUANITA, CBC #### [address] [place] [address] Wire Coiler: Norm Frank MD #### BVTEST, GLYHGB #### [address] [address] Wire Coiler: Christiano Lopez (Bld) [#/Vol]187 10*3/mKJazuyf640-182 [facility] HospitalCommymichigan medical center alma on above:Performed By: #### CP, CBC #### [address] [place] [address] Wire Coiler: Norm Frank MD #### BVTEST, GLYHGB #### [address] [address] Wire Coiler: MICA Lopez (Bld) [#/Vol]4.63 10*6/uLNormal4.21-5.77 [facility] on above:Performed By: #### CP, CBC #### [address] [place] [phone] Wire Coiler: Norm Frank MD #### BVTEST, GLYHGB #### [facility] [employer] [address] [place], [place] [phone] Wire Coiler: Trenton Carbajal MDWBC (Bld) [#/Vol]5.3 10*3/uLNormal3.5-11.3MProMedica Flower HospitalComment on above:Performed By: #### CP, CBC #### [facility] [address] [place] [address] Wire Coiler: Norm Frank MD #### BVTEST, GLYHGB #### [facility] [employer] [address] [place] [address] Wire Coiler: Trenton Carbajal MDHematocrit (Bld) [Volume fraction]44.0 %40.7 - 50.3 %[facility] CHILDREN'S HOSPITALHemoglobin (Bld) [Mass/Vol]15.7 g/dL13.0 - 17.0 g/dLBON WESTERN RESERVE HOSPITALInterpretation and review of laboratory results AbnormalCARILION STONEWALL JACKSON HOSPITALH (RBC) [Entitic mass]33.9 jjKrki55.2 - 33.5 pgCARILION STONEWALL JACKSON HOSPITALHC (RBC) [Mass/Vol]35.7 g/yROlxw32.4 - 34.8 g/dLBON HOLZER HOSPITALV (RBC) [Entitic vol]95.0 fL82.6 - 102.9 fLINOVA CHILDREN'S HOSPITALNRBC Automated0.00.0 per 100 WBCINOVA CHILDREN'S HOSPITALPlatelet distribution width (Bld) [Ratio]12.9 %11.8 - 14.4 %[facility] Platelet mean volume (Bld) [Entitic vol]10.6 fL8.1 - 13.5 fLINOVA CHILDREN'S HOSPITALPlatelets (Bld) [#/Vol]187 10*3/uLBON WESTERN RESERVE HOSPITALRBC (Bld) [#/Vol]4.63 10*6/uL4.21 - 5.77 m/uLBON WESTERN RESERVE HOSPITALWBC (Bld) [#/Vol]5.3 10*3/uLBON [facility] Metabolic Profon 42-68-1343Ktmkdkq [Mass/Vol]4.4 g/dLNormal3.5-5.2MProMedica Flower HospitalComment on above:Performed By: #### CP, CBC #### [address] [place] [address] Wire Coiler: Norm Frank MD #### BVTEST, GLYHGB #### [address] [address] Wire Coiler: Trenton Carbajal MDAlbumin/Glob Ratio1.1Qfussr2.0-2.5[facility] HospitalComment on above:Performed By: #### SANJUANITA, CBC #### [address] [place], [place] 6595[address] Wire Coiler: Norm Frank MD #### BVTEST, GLYHGB #### [address] [address] Wire Coiler: Heather Lopez Phos61 U/SDnidzu88-486RogsyParkview Health Montpelier HospitalComment on above:Performed By: #### SANJUANITA, CBC #### [address] [place] [address] Wire Coiler: Norm Frank MD #### BVTEST, GLYHGB #### [address] [address] Wire Coiler: Trenton Carbajal MDALT [Catalytic activity/Vol]40 U/LNormal5-41 [facility] HospitalCommymichigan medical center alma on above:Performed By: #### SANJUANITA, CBC #### [address] [place] [address] Wire Coiler: Norm Frank MD #### BVTEST, GLYHGB #### [address] [address] Wire Coiler: Trenton Carbajal MDAnion gap [Moles/Vol]11 mmol/LNormal9-17[facility] HospitalComment on above:Performed By: #### CP, CBC #### [facility] [address] [place] [address] Dr[address] [place], [place] 06[address] Wire Coiler: Norm Frank MD #### BVTEST, GLYHGB #### [address] [id number] Wire Coiler: Trenton Carbajal MDAST [Catalytic activity/Vol]23 U/LNormal<40[facility] Montpelier HospitalComment on above:Performed By: #### SANJUANITA, CBC #### [facility] [address] [place] [address] [place] [place], [place] 765[address]83 Wire Coiler: Norm Frank MD #### BVTEST, GLYHGB #### [address] [address] Wire Coiler: Trenton Carbajal MDBilirubin [Mass/Vol]0.4 mg/dLNormal0.3-1.2MProMedica Flower HospitalComment on above:Performed By: #### SANJUANITA, CBC #### [address] [place], [place] 99[address]83 Wire Coiler: Norm Frank MD #### BVTEST, GLYHGB #### [address] [address] Wire Coiler: Trenton Carbajal MDBUN/CRE Alkzo21Wjrrew7-66Xdjmp [facility] Comment on above:Performed By: #### SANJUANITA, CBC #### [address] [place], [place] 65[address]383 Wire Coiler: Norm Frank MD #### BVTEST, GLYHGB #### [address] [address] Wire Coiler: SUSANA Lopezalcium [Mass/Vol]9.8 mg/dLNormal8.6-10.4[facility] Montpelier HospitalComment on above:Performed By: #### CP, CBC #### [address] [place] [phone] Wire Coiler: Norm Frank MD #### BVTEST, GLYHGB #### [address] [phone] Wire Coiler: SUSANA Lopezhloride [Moles/Vol]106 mmol/XEvwwlr94-429LosbrParkview Health Montpelier HospitalComment on above:Performed By: #### CP, CBC #### [address] [place] [phone] Wire Coiler: Norm Frank MD #### BVTEST, GLYHGB #### [place] [phone] Wire Coiler: SUSANA LopezO2 [Moles/Vol]23 mmol/ZSrrqnx19-96GwslnParkview Health Montpelier HospitalComment on above:Performed By: #### CP, CBC #### [address] [place] [phone] Wire Coiler: Norm Frank MD #### BVTEST, GLYHGB #### [address] [address] Wire Coiler: SUSANA Lopezreatinine [Mass/Vol]0.73 mg/dLNormal0.70-1.20 [facility] Montpelier HospitalComment on above:Performed By: #### CP, CBC #### [address] [place] [address] Wire Coiler: Norm Frank MD #### BVTEST, GLYHGB #### [address] [phone] Wire Coiler: Trenton Carbajal MDGFR/1.73 sq M.predicted among non-blacks MDRD (S/P/Bld) [Vol rate/Area]mL/min/{1.73_m2}Normal>60[facility] Montpelier HospitalCommymichigan medical center alma on above:Result Comment: Effective Jun 19, 2022 These results [...] or following therapy that affects renal tubular secretion.Performed By: #### CP, CBC #### [address] [place] [address] Wire Coiler: Norm Frank MD #### BVTEST, GLYHGB #### [address] [phone] Wire Coiler: Trenton Carbajal MDGlucose [Mass/Vol]179 mg/hITuee76-22Rnkn[address] [place], [place] [address]Comment on above:Performed By: #### SANJUANITA, CBC #### [address] [place] [address] Wire Coiler: Norm Frank MD #### BVTEST, GLYHGB #### [address] [phone] Wire Coiler: Trenton Carbajal MDPotassium [Moles/Vol]4.1 mmol/LNormal3.7-5.3 [facility] Montpelier HospitalComment on above:Performed By: #### SANJUANITA, CBC #### [address] [place] [address] Wire Coiler: Norm Frank MD #### BVTEST, GLYHGB #### [address] [phone] Wire Coiler: Trenton Carbajal MDProtein [Mass/Vol]7.1 g/dLNormal6.4-8.3Mparkview health montpelier hospitaly Day Kimball HospitalComment on above:Performed By: #### CP, CBC #### [address] [place] [address] Wire Coiler: Norm Frank MD #### BVTEST, GLYHGB #### [place] [address] [place], [place] [phone] Wire Coiler: EDGAR Lopezodium [Moles/Vol]140 mmol/AHefixq515-992TtetbParkview Health Montpelier HospitalComment on above:Performed By: #### CP, CBC #### [address] [place] [address] Wire Coiler: Norm Frank MD #### BVTEST, GLYHGB #### [place] [address] [place], [place] [phone] Wire Coiler: Trenton Carbajal MDUrea nitrogen [Mass/Vol]14 mg/dLNormal6-20[facility] Montpelier HospitalComment on above:Performed By: #### CP, CBC #### [address] [place] [address] Wire Coiler: Norm Frank MD #### BVTEST, GLYHGB #### [place] [address] [place], [place] [phone] Wire Coiler: SUSANA Lopezomprehensive Metabolic Panelon 09-01-2022 Albumin [Mass/Vol]4.4 g/dL3.5 - 5.2 g/dLBON WESTERN RESERVE HOSPITALAlbumin/Globulin [Mass ratio]1.6 {ratio}1.0 - 2.5[facility] HEALTHALP (Bld) [Catalytic activity/Vol]61 U/L40 - 129 U/LBON [facility] HEALTHALT [Catalytic activity/Vol]40 U/L5 - 41 U/LBON [facility]STERN RESERVE HOSPITALAnion gap [Moles/Vol]11 mmol/L9 - 17 mmol/LBON [facility] HEALTHAST [Catalytic activity/Vol]23 U/L NINF - 40 U/LBON [facility] RESERVE HOSPITALBilirubin [Mass/Vol]0.4 mg/dL0.3 - 1.2 mg/dLBON WESTERN RESERVE HOSPITALCalcium [Mass/Vol]9.8 mg/dL8.6 - 10.4 mg/dLBON WESTERN RESERVE HOSPITALChloride [Moles/Vol]106 mmol/L98 - 107 mmol/LBON WESTERN RESERVE HOSPITALCO2 [Moles/Vol]23 mmol/L20 - 31 mmol/LB[facility] Creatinine [Mass/Vol]0.73 mg/dL0.70 - 1.20 mg/dLB[facility] Unite UsGFR/1.73 sq M.predicted MDRD (S/P/Bld) [Vol rate/Area]- [facility]FBSOUTHERN [facility] Comment on above: Effective Jun 19, 2022 [...] therapy that affects renal tubular secretion. Glucose [Mass/Vol]179 mg/aCSumy02 - 99 mg/dLB[facility] Interpretation and review of laboratory resultsAbnormalB[facility] Potassium [Moles/Vol]4.1 mmol/L3.7 - 5.3 mmol/LBON WESTERN RESERVE HOSPITALProtein [Mass/Vol]7.1 g/dL6.4 - 8.3 g/dLBON WESTERN RESERVE HOSPITALSodium [Moles/Vol]140 mmol/L135 - 144 mmol/LBON WESTERN RESERVE HOSPITALUrea nitrogen (BldV) [Mass/Vol]14 mg/dL6 - 20 mg/dLB[facility] Unite UsUrea nitrogen/Creatinine (Bld) [Mass ratio]199 - 20B[facility] RESERVE HOSPITALBON WESTERN RESERVE HOSPITALXR RIBS RIGHT (2 VIEWS)on [id number] acute osseous abnormality of the right ribs.[facility]- [place], KYEXAMINATION: 2 XRAY VIEWS OF THE RIGHT RIBS 09/13/2020 4:22 pm COMPARISON: None. HISTORY: ORDERING SYSTEM PROVIDED HISTORY: Right-sided chest pain TECHNOLOGIST PROVIDED HISTORY: right sided chest pain, s/p injury FINDINGS: AP and oblique views of the right chest wall are submitted for review. No acute fracture or dislocation identified. Overlying soft tissues are unremarkable. Visualized lung parenchyma is clear.[facility], LAYOEdi, Mhpn Incoming Radiant Results From Powerscribe/Pacs - 09/13/2020 4:56 PM EST EXAMINATION: 2 [...] acute osseous abnormality of the right ribs. [facility], KYALTon [id number] [Catalytic activity/Vol]37 U/L5 - 41 U/L [facility], KYASTon [id number] [Catalytic activity/Vol]19 U/L<40[facility]- [place], KYBasic Metabolic Panelon [id number] gap [Moles/Vol]10 mmol/L9 - 17 mmol/LMlima memorial hospital Health- [place], KYBun/Cre Ywfmp68Kkkfc Health- [place], KYCalcium [Mass/Vol]9.9 mg/dL8.6 - 10.4 mg/dLMiddletown Hospital [facility]- [place], KYChloride [Moles/Vol]99 mmol/L98 - 107 mmol/LMparkview health montpelier hospitaly Health- [place], KYCO2 [Moles/Vol]25 mmol/L20 - 31 mmol/L [facility]- [place], KYCreatinine [Mass/Vol]0.77 mg/dL0.7 - 1.2 mg/dLMiddletown Hospital [facility]- [place], KYGFR >60>60 mL/minMiddletown Hospital Health- [place], KYGFR Non->60>60 mL/minMiddletown Hospital Health- [place], KYGlucose [Mass/Vol]140 mg/lKOjvc23 - 99 mg/dLMiddletown Hospital Health- [place], KYInterpretation and review of laboratory resultsAbnormal [facility], MAPotassium [Moles/Vol]4.0 mmol/L3.7 - 5.3 mmol/LMMetroHealth Main Campus Medical Center, MASodium [Moles/Vol]134 mmol/EVey310 - 144 mmol/LMMetroHealth Main Campus Medical Center, MAUrea nitrogen [Mass/Vol]14 mg/dL6 - 20 mg/dLKn[facility], MACBCon 07-21-2020 Erythrocyte distribution width (RBC) [Ratio]12.3 %11.8 - 14.4 %[facility], MAHematocrit (Bld) [Volume fraction]48.7 %40.7 - 50.3 %[facility], [place] Hemoglobin (Bld) [Mass/Vol]17.4 g/pVPyup21 - 17 g/dLDe [place], [place] Interpretation and review of laboratory resultsAbnormKettering Health Dayton, MAMCH (RBC) [Entitic mass]33.4 pg25.2 - 33.5 pgKnox Community Hospital, MAMCHC (RBC) [Mass/Vol]35.7 g/gBCobb82.4 - 34.8 g/dLKn[facility] Community Hospital, MAMCV (RBC) [Entitic vol]93.5 fL82.6 - 102.9 fLDe Tour Village, KYPlatelet mean volume (Bld) [Entitic vol]10.1 fL8.1 - 13.5 fLKnox Community Hospital, MAPlatelets (Bld) [#/Vol]206 10*3/[facility], MARBC (Bld) [#/Vol]5.21 10*6/uL4.21 - 5.77 m/[facility], MAWBC (Bld) [#/Vol]7.8 10*3/[facility], MAWBC (Bld) [#/Vol] 0.0 10*3/uL0.0 per 100 WBCDe Tour Village, KYLipid Panelon 07-21-2020 Cholesterol [Mass/Vol]190 mg/dL<200[place], KYComment on above: Cholesterol Guidelines: <200 Desirable 200-240 Borderline >240 Undesirable Cholesterol in HDL [Mass/Vol]36 mg/dLLow>40[facility]- [place], KYComment on above: HDL Guidelines: <40 Undesirable 40-59 Borderline >59 Desirable Cholesterol in LDL [Mass/Vol]107 mg/dL0 - 130 mg/dLDe Tour Village, KYComment on above: LDL Guidelines: <100 Desirable 100-129 Near to/above Desirable 130-159 Borderline >159 Undesirable Direct (measured) LDL and calculated LDL are not interchangeable tests. Cholesterol in VLDL [Mass/Vol]NOT REPORTEDHigh1 - 30 mg/dLDe [place], [place] Cholesterol.total/Cholesterol in HDL [Mass ratio]5.3 {ratio}High<5[place], KYInterpretation and review of laboratory resultsAbnormalDe Tour [place], KYTriglyceride [Mass/Vol]235 mg/dLHigh<150[place], KYComment on above: Triglyceride Guidelines: <150 Desirable 150-199 Borderline 200-499 High >499 Very high Based on AHA Guidelines for fasting triglyceride, June 2012. Metabolic Panelon [id number]/1.73 sq M predicted among non-blacks MDRD (S/P/Bld) [Vol rate/Area][place], KYComment on above:Stage 1: Some kidney damage normal GFR Stage 2: Mild kidney damage GFR 60-89 Stage 3: Moderate kidney damage GFR 30-59 Stage 4: Severe kidney damage GFR 15-29 Stage 5: Severe kidney damage GFR <15 ESRD - chronic treatment by dialysis or transplant Average GFR for 40-49 years old: 99 mL/min/1.73sq m Chronic Kidney Disease: <60 mL/min/1.73sq m Kidney failure: <15 mL/min/1.73sq m eGFR calculated using average adult body mass. Additional eGFR calculator available at: http://www.Clikthrough.[employer]/multiple_crcl_2012.htm BILIRUBIN CONJUGATED (DIRECT)on [id number], CONJUGATED0.2 mg/dLNormal0.0-0.3 [facility] Luther[facility] HospitalComment on above:Performed By: #### DBIL #### [facility] [address] [place] [address] Taras VazquezSt. James [facility] AUTO DIFFon [id number] (Bld) [#/Vol]0.0 103/ulNormal 0.0-0.1The [facility] HospitalComment on above:Performed By: #### CBC #### [facility] [address] [place], [place] [id number] Taras KarenBasophils/100 WBC (Bld)0.7 %Normal0.2-2.0[facility] Comment on above:Performed By: #### CBC #### [facility] [address] [place] [address] Taras KarenEosinophils (Bld) [#/Vol]0.1 103/ulNormal0.0-0.7The [facility] HospitalComment on above:Performed By: #### CBC #### [facility] [address] [place] [address] Taras KarenEosinophils/100 WBC (Bld)1.8 %Normal0.9-7.0[facility] Comment on above:Performed By: #### CBC #### [facility] [address] [place] [address] Taras KarenErythrocyte distribution width (RBC) [Ratio]12.5 %Apxqam15.0-15.0The [facility] HospitalComment on above:Performed By: #### CBC #### [facility] [address] [place] [address] Taras KarenHematocrit (Bld) [Volume fraction]48.4 %Lmtobn84.0-54.0[facility] HospitalComment on above:Performed By: #### CBC #### [facility] [address] [place] [address] Taras KarenHemoglobin (Bld) [Mass/Vol]17.3 g/yLDkekqv33.0-18.0[facility] HospitalComment on above:Performed By: #### CBC #### [facility] [address] [place] [address] Taras KarenIG #0.02 10e3/ulNormal0.00-0.03The [facility] HospitalComment on above:Performed By: #### CBC #### [facility] [address] [place] [address] Taras KarenIG %0.3 %Normal0.0-0.5The [facility] HospitalComment on above: Performed By: #### CBC #### [facility] [address] [place] [address] Taras KarenLymphocytes (Bld) [#/Vol]1.9 103/ulNormal1.2-3.8The [facility] HospitalComment on above:Performed By: #### CBC #### [facility] [address] [place] [address] Taras KarenLymphocytes/100 WBC (Bld)30.5 %Iraanq29.5-60.0[facility] Comment on above:Performed By: #### CBC #### [facility] [address] [place] [address] Taras KarenMANUAL DIFF REQNONormalThe [facility] HospitalComment on above: Performed By: #### CBC #### [facility] [address] [place] [address] Taras KarenMCH (RBC) [Entitic mass]33.6 pbGdkisp07.9-34.0[facility] Comment on above:Performed By: #### CBC #### [facility] [address] [place] [address] Taras KarenMCHC (RBC) [Mass/Vol]35.7 g/dLCritically high29.9-35.2[facility] HospitalComment on above:Performed By: #### CBC #### [facility] [address] [place] [address] Taras KarenMCV (RBC) [Entitic vol]94.0 bEDuzakh32.0-94.0[facility] Comment on above:Performed By: #### CBC #### [facility] [address] [place] [address] Taras KarenMonocytes (Bld) [#/Vol]0.5 103/ulNormal0.3-0.8ThTrinity Health System East Campus Comment on above:Performed By: #### CBC #### [facility] [address] [id number] Taras KarenMonocytes/100 WBC (Bld)8.0 %Normal1.7-12.0[facility] Comment on above:Performed By: #### CBC #### [facility] [address] [place] [address] Taras KarenNeutrophils (Bld) [#/Vol]3.6 103/ulNormal1.4-6.5ThTrinity Health System East CampusComment on above:Performed By: #### CBC #### [facility] [address] [place] [address] Taras KarenNeutrophils/100 WBC (Bld)58.7 %Toiuwz66.0-75.0[facility] Comment on above:Performed By: #### CBC #### [facility] [address] [place] [address] Taras KarenPlatelet mean volume (Bld) [Entitic vol]10.4 fLNormal9.5-13.5ThTrinity Health System East CampusComment on above:Performed By: #### CBC #### [facility] [address] [place] [address] Taras KarenPlatelets (Bld) [#/Vol]203 103/ioQuzyvr411-197OimHolmes County [facility] Comment on above:Performed By: #### CBC #### [facility] [address] [place] [address] Taras KarenRBC (Bld) [#/Vol]5.15 106/ulNormal4.70-6.10ThTrinity Health System [facility] Campus Comment on above:Performed By: #### CBC #### [facility] [address] [place] [address] Taras KarenWBC (Bld) [#/Vol]6.1 103/ulNormal4.0-11.0[facility] Comment on above:Performed By: #### CBC #### [facility] [address] [place] [address] Taras KarenGLYCOHEMOGLOBIN A1Con 50-32-8432Fbofhnh [Mass/Vol]232 mg/dLKindred Hospital LimaComment on above:Performed By: #### A1C #### [facility] [address] [place], [place] [id number] Taras AsbygOjH9s (Bld) [Mass fraction]9.7 %Critically high<=6.0[facility] HospitalComment on above:Performed By: #### A1C #### [facility] [address] [place] [address] Taras KarenLIPID PROFILEon [id number]-HDL RATIO NORMSEE Keenan Private HospitalComment on above:Result Comment: 3.3 - 4.4 LOW RISK 4.4 - 7.1 AVERAGE RISK 7.1 - 11.0 MODERATE RISK >11.0 HIGH RISKPerformed By: #### CMP, LIPID #### [facility] [address] [place] [address] Taras KarenCholesterol [Mass/Vol]244 mg/dLCritically high<=200The [facility] HospitalComment on above:Performed By: #### CMP, LIPID #### [facility] [address] [place] [address] Taras KarenCholesterol in HDL [Mass/Vol]> or = 60 mg/dl - LOW CARDIOVASCULAR RISK <40 mg/dl - HIGH CARDIOVASCULAR RISKKindred Hospital LimaCommymichigan medical center alma on above:Performed By: #### CMP, LIPID #### [facility] [address] [place] [address] Taras KarenCholesterol in HDL [Mass/Vol]35 mg/dLKindred Hospital Lima Comment on above:Performed By: #### CMP, LIPID #### [facility] [address] [place] [address] Taras KarenCholesterol in LDL [Mass/Vol]179.8 mg/dLKindred Hospital Lima Comment on above:Performed By: #### CMP, LIPID #### [facility] [address] [place], [place] [id number] Taras KarenCholesterol in LDL [Mass/Vol]SEE [facility] Comment on above:Result Comment: <100 mg/dl OPTIMAL 100 - 129 mg/dl NEAR OR ABOVE OPTIMAL 130 - 159 mg/dl BORDERLINE HIGH 160 - 189 mg/dl HIGH >190 mg/dl VERY HIGHPerformed By: #### CMP, LIPID #### [facility] [address] [place], [place] [address] Taras KarenCholesterol.total/Cholesterol in HDL [Mass ratio]7.0 {ratio}Normal The [facility] HospitalComment on above:Performed By: #### CMP, LIPID #### [facility] [address] [place], [place] [address] Taras KarenTriglyceride [Mass/Vol]146 mg/dLNormal<=150[facility] Comment on above:Performed By: #### CMP, LIPID #### [facility] [address] [place] [address] Taras KarenVLDL CALC29.2 mg/dLNormalThTrinity Health System East CampusComment on above: Performed By: #### CMP, LIPID #### [facility] [address] [place], [place] [address] Taras KarenPROF 14(COMP METB)on [id number] [Mass/Vol]4.2 g/dLNormal 3.5-5.0[facility] HospitalComment on above:Performed By: #### CMP, LIPID #### [facility] [address] [place], [place] [address] Taras KarenAlbumin/Globulin [Mass ratio]1.3 {ratio}NormalHolmes County Joel [facility] Comment on above:Performed By: #### CMP, LIPID #### [facility] [address] [place], [place] [address] Taras KarenALP [Catalytic activity/Vol]66 U/IFoipwq74-986YlgHolmes County [facility] Hospital Comment on above:Performed By: #### CMP, LIPID #### [facility] [address] [place], [place] [address] Taras KarenALT [Catalytic activity/Vol]66 U/ADjxivy37-11ZzuHolmes County Joel [facility]rene [facility] Hospital Comment on above:Performed By: #### CMP, LIPID #### [facility] [address] [place], [place] [address] Taras KarenAnion gap [Moles/Vol]11.4 mmol/LNormalHolmes County Joel Pomerene Memorial HospitalComment on above:Performed By: #### CMP, LIPID #### [facility] [address] [address] Taras KarenAST [Catalytic activity/Vol]31 U/IEqxmjk49-11XdoHolmes County Joel Pomerene Memorial Hospital Comment on above:Performed By: #### CMP, LIPID #### [facility] [address] [address] Taras KarenBilirubin Ql (U)0.8 mg/dLNormal0.2-1.3TMercy Health – The Jewish HospitalComment on above:Performed By: #### CMP, LIPID #### [facility] [address] [address] Taras KarenCalcium [Mass/Vol]9.7 mg/dLNormal8.4-10.2[facility] Comment on above:Performed By: #### CMP, LIPID #### [facility] [address] [address] Taras KarenChloride [Moles/Vol]101 mmol/TFjnxhh86-962FglHolmes County Joel [facility] Hospital Comment on above:Performed By: #### CMP, LIPID #### [facility] [address] [place] [address] Taras KarenCO2 [Moles/Vol]29.1 mmol/SOcyviv32.0-30.0[facility] Comment on above:Performed By: #### CMP, LIPID #### [facility] [address] [address] Taras KarenCreatinine [Mass/Vol]0.98 mg/dLNormal0.66-1.25[facility] Comment on above:Performed By: #### CMP, LIPID #### [facility] [address] [place] [address] Taras KarenEGFR-AF COSTA RICAN>60Normal>=60[facility] HospitalComment on above: Performed By: #### CMP, LIPID #### [facility] [address] [address] Taras KarenEGFR-NON AF COSTA RICAN>60Normal>=60The [facility] HospitalComment on above:Performed By: #### CMP, LIPID #### [facility] [address] [address] Taras KarenGlobulin (S) [Mass/Vol]3.3 g/dLNormalThTrinity Health System East CampusComment on above:Performed By: #### CMP, LIPID #### [facility] [address] [address] Taras KarenGlucose [Mass/Vol]248 mg/dLCritically vuiy29-968Ivs [facility] HospitalComment on above:Performed By: #### CMP, LIPID #### [facility] [address] [place] [address] Taras KarenPotassium [Moles/Vol]4.5 mmol/LNormal3.4-5.0[facility] Comment on above:Performed By: #### CMP, LIPID #### [facility] [address] [place] [address] Taras KarenProtein [Mass/Vol]7.5 g/dLNormal6.1-8.2The [facility] HospitalComment on above:Performed By: #### CMP, LIPID #### [facility] [address] [place] [address] Taras KarenSodium [Moles/Vol]137 mmol/WBfytth349-678Vcv [facility] Comment on above:Performed By: #### CMP, LIPID #### [facility] [address] [place] [address] Taras KarenUrea nitrogen [Mass/Vol]13.0 mg/dLNormal9.0-20.0The [facility] HospitalComment on above:Performed By: #### CMP, LIPID #### [facility] [address] [place] [address] Taras KarenUrea nitrogen/Creatinine [Mass ratio]13.3 mg/mgNormalThe [facility] HospitalComment on above:Performed By: #### CMP, LIPID #### [facility] [address] [place] [address] Taras Cathi Vital Signs Date TimeVital SignValuePerforming IncmmyficWcjmlyxl30-33-7503 08:39-0400 Diastolic blood nuaeaczw85 mm[Hg]Rajat Zeng [phone]-Fcxcf[address] [place] [address] General Surgery [facility] 11-30-2023 08:39-0400Mean blood uzdgqvnh217 mm[Hg]Rajat Cobosy [phone]-Jdagr[address] [place] [address] General Surgery [place] 11-30-2023 08:39-0400Systolic blood dzkbiggv936 mm[Hg]Rajat Majorurany [phone]-Gdamf[address] [place] [address] General Surgery [facility] 11-30-2023 08:31-0400Blood Pressure LocationJogabriela Mourany [phone]-Zmhjd[address] [place] [address] General Surgery [place] 11-30-2023 08:31-0400Diastolic blood dwzhokns618 mm[Hg]Rajat Zeng [phone]-Bmpcy[address] [place] [address] General Surgery [place] 11-30-2023 08:31-0400Heart rate86 /minJohn Mourany [phone]-Yvekz[address] [place] [address] General Surgery [place] 11-30-2023 08:31-0400Respiratory rate16 /minJohn Mourany [phone]-Znrdh[address] [place] [address] General Surgery [place] 11-30-2023 08:31-0400Systolic blood qdywpbbw186 mm[Hg]Rajat Zeng [phone]-Pumxe[address] [place] [address] General Surgery [place] 10-26-2023 10:10-0500Blood Pressure LocationJohn Mourany [phone]-Irfci[address] [place] [address] General Surgery [place] 10-26-2023 10:10-0500Diastolic blood mm[Hg]Rajat Zeng [phone]-Vydks[address] [place] [address] General Surgery [place] 10-26-2023 10:10-0500Heart rate88 /minJohn Mourany [phone]-VdxogSum[facility] [place] 10-26-2023 10:10-0500Respiratory rate18 /Devin Zeng [phone]-NoiikSumma Health [facility]ron Campus [facility] 10-26-2023 10:10-0500Systolic blood awjcqyul959 mm[Hg]Rajat Zeng [phone]-OismqSouthwest [facility] Encounters Encounter DateEncounter TypeCare ProviderFacilityStart: 26-14-5169wlnqchhhoyKwtz L SchwabFacility:[facility] BellevueStart: 71-05-9554ecannfpkuxYhrh L Lana Facility: FM BellevueStart: 07-21-2025 End: 04-57-5402azpvhsortjLUM Emily L SchwabFacility:FTMCStart: 06-30-2025 End: 21-44-4876fisivqdadtKcar L SchwabFacility: FM BellevueStart: 05-14-2025 End: 67-32-2354hbuirrwvsyHWPOUN A LEHMANNFacility: FM BellevueStart: 04-07-2025 End: 17-88-1352qadyzwkfzfOVABWJ A LEHMANNFacility: FM BellevueStart: 01-13-2025 End: 72-89-0653vcqcfallljTAQXXK A LEHMANNFacility: FM BellevueStart: 10-14-2024 End: 89-12-4031Yyf Drop offSHELLY A LEENA [facility] Start: 10-14-2024 End: 84-15-5954aeexoqnkjbMJNLRR A LEHMANNFacility: FM BellevueStart: 08-15-2024 End: 35-26-6254uvjgxswcbtRCBGDQ A LEHMANNFacility:[facility] BellevueStart: 07-10-2024 End: 27-76-0120Wks Drop offSHELLY A LEENA [facility] Start: 07-10-2024 End: 43-75-3818hmjkeecvqgNATBOV A LEHMANNFacility:FT FM BellevueStart: 05-15-2024 End: 41-16-4416bcjrfjycciVZWVKA A LEHMANNFacility:FT FM BellevueStart: 04-15-2024 End: 39-19-9763yoiurstsvkWXAKEF A LEHMANNFacility:FT FM BellevueStart: 04-09-2024 End: 02-04-7418wiimnspndgQYHKDU A LEHMANNFacility:FT FM BellevueStart: 03-18-2024 End: 42-30-2532wsgqdtwemaGOTAQZ A LEHMANNFacility:FT FM BellevueStart: 02-21-2024 End: 51-45-3109Vtw Drop offSHELLY A LEENA [facility] Start: 02-21-2024 End: 30-88-3395dazkkxyaypYQGWTQ A LEHMANNFacility:FT FM BellevueStart: 02-19-2024 End: 85-71-9074dekqppuedpFMTIEQ A LEHMANNFacility:FT FM BellevueStart: 78-84-5422yxkingbzqzATEUQB A LEHMANNFacility: FM BellevueStart: 11-30-2023 End: 04-45-3647wlyolbwfciUovr E. MouranyFacility:[facility]art: 11-30-2023 End: 47-37-4362Dveccda encounter procedureJohn E. Mourany [phone]-UevizSum[facility] [place] Start: 11-02-2023 End: 51-23-7542rpqnkjmqmlSuvp E. MouranyFacility: DakotaYicha Onlinetart: 11-02-2023 End: 47-61-5669Nsedgnj encounter procedureJohn E. Mourany 082-2026Siwsmg-[facility]xcUc [facility] Center Surgery [place] Start: 04-82-3567qybxybnhyvKhho MouranyFacility:[facility]art: 10-26-2023 End: 62-38-3829qnxzmzfshzDscz E. MouranyFacility:[facility] [facility]art: 10-26-2023 End: 92-70-0853Iblfjmw encounter procedureRajat Zeng [phone]-OstbnSouthwest General Health Center Start: 10-26-2023 End: 46-81-4733nvsjfizrgyJTBBES A LEHMANNFacility:FT BellevueStart: 23-82-1293iwkpvpdtdlKzbg MouranyFacility:[facility] BellevueStart: 06-22-2023 End: 62-79-8847Anzeluylk department patient visitTONY Nava [facility]Start: 09-13[facility]2022 End: 92-00-1077cilhzblvzaNOYQPLPilar Tolentino [facility] HospitalStart: 09-13-2022 End: 65-45-8073Yznluqgvxm hospital visit by Yeny Dixon PTMTHZ Physical TherapyComment on above:ArrivedStart: 09-01-2022 End: 88-09-9407buqrpqqtotEXXUBWPilar Tolentino [facility] HospitalStart: 09-01-2022 End: 01-14-0936Vuvlpxiyto hospital visit by Candido Durán APRN - JADYN Work Phone: mthz LaboratoryComment on above:Other hyperlipidemia; Type 2 diabetes mellitus without complication, without long-term current use of insulin (HCC); Essential hypertension; Erectile dysfunction, unspecified erectile dysfunction typeStart: 01-28-2021 End: 32-10-9124Nmsepqidpp hospital visit by Candido Durán APRN - JADYN Work Phone: mthz LaboratoryStart: 09-13-2020 End: 67-99-8443Csmelqqphv hospital visit by Georges Ortiz [address] [place] [address] RadiologyComment on above:Right-sided chest painStart: 07-21-2020 End: 32-12-4295Cumegptuju hospital visit by Candido Fernandez LaboratoryComment on above:Type 2 diabetes mellitus without complication, without long-term current use of insulin (HCC); Essential hypertensionStart: 99-66-2396Togxhoaxa for general adult medical examination without abnormal findingsAkron Children's Hospitaltart: 05-18-2020 End: 37-50-6943Ajklcvc encounter procedureDOUGMoab Regional Hospitalcility:M3Tegrw: 16-80-2543Xmyytsf encounter procedureDOLifePoint Hospitalsity:W5Hnrzneiap for general adult medical examination without abnormal findingsFort [facility] Procedures DateProcedureProcedure DetailPerforming ClinicianStart: 67-98-0468Hlgiyadpekiza metabolic panelMonica Durán PARTS CLEANER - MATCH MAKER Work Phone: Start: 99-78-2152Qvwkh panelMonica Durán PARTS CLEANER - MATCH MAKER Work Phone: Start: 68-06-4861Rxjtb ribs unilateral 2 viewsMonica Durán Work Phone: Start: 84-96-1026Ebkne metabolic panel calcium total Monica Durán Work Phone: Start: 01-48-4773Uihkz count complete automatedMonica Durán Work Phone: Start: 54-39-0832Aaewq panelMonica Durán Work Phone: Start: 24-21-5028Youzawgdebo alanine amino alt sgpt Monica Durán Work Phone: Start: 11-10-7502Hndlftwlxrn aspartate amino ast sgot Monica Durán Work Phone: photorefractive keratoplastyRajat Zeng Structure of anterior cruciate ligament of knee joint (body structure)Rajat Zeng Plan of Treatment DateCare ActivityDetailAuthorStart: 51-66-9414Vlwmuyvp foot examinationDiabetic foot examBON [facility]: 79-40-1126Dofjoejyao Monitoring Depression MonitoringLifePoint Hospitalsart: 68-54-5887BKJ test (Diabetes, CKD 3-4, OR last GFR 15-59)GFR test (Diabetes, CKD 3-4, OR last GFR 15-59)[facility]: 57-02-2220Ahypqhvpqx A1c hokxzdsmclhU4E test (Diabetic or Prediabetic)LifePoint Hospitalsart: 73-19-4981Pihai panelLipidsLifePoint Hospitalsart: 03-09-2023 End: 27-67-8924Pnkmolv encounter /23/2023 Office Visit Primary Care Monica Durán, PARTS CLEANER - MATCH MAKER [address] [facility] [address] [id number] [facility] Start: 06-16-7715Rwulnpcu foot examinationDiabetic foot examBON [facility]art: 11-97-6644Qemnwokbtw A1c guvxxxudjloX4D test (Diabetic or Prediabetic)[facility]: 24-04-3736Iriiz panelLipidsLifePoint Hospitalsart: 94-16-5544Romfh screening for proteinDiabetic microalbuminuria testBon Secours St. [facility]: 47-11-9814Zoewgwtvn vaccinationFlu vaccine (#1)[facility]: 65-10-3293Pwxfzgulix measurementCreatinine monitoringMiddletown Hospital Lang Ma Work Phone: start: 26-30-6584Zmzoofvqe monitoringPotassium [facility] [employer] Phone: start: 97-18-6898Nlhlyzpg foot examinationDiabetic foot examKnox Community Hospital, [place]Start: 41-81-5003Alfiuklabc measurementCreatinine [facility], [place]Start: 92-70-0665VeH0c (Bld) [Mass fraction]A1C test (Diabetic or Prediabetic)[facility]: 30-65-9446Prugdtpjry A1c wgwfumtocuqW9C test (Diabetic or Prediabetic)[facility] OhioLevelUp Phone: start: 32-27-2293Zsugt panelLipid [facility]: 20-98-1293Xwkqypikn monitoringPotassium monitoringMercy Health [facility]iff[facility] Hospital: 20-18-4742Ortyapprw vaccinationFlu vaccine (Season Ended)[facility] [employer] Phone: start: 02-04-2021 End: 19-76-3079Dmwbule encounter rgabinybb45/21/2021 Office Visit Family Medicine Monica Duárn, PARTS CLEANER - MATCH MAKER [address] [place] [address] [facility] Hospitaltart: 11-15-2020 End: 72-54-7180Wxnpyb Visit11/15/2020 Office Visit Family Monica Camejo, PARTS CLEANER - MATCH MAKER [address] [place] [address] [facility] Start: 09-22-2020 End: 96-39-5591Duvmor Visit09/22/2020 Office Visit Family Monica Camejo, PARTS CLEANER - MATCH MAKER [address] [place] [address] [facility] Start: 08-20-2020 End: 47-47-7346Fpvgev Visit08/20/2020 Office Visit Family Monica Camejo, PARTS CLEANER - MATCH MAKER [address] [place] [address] [facility] Start: 87-77-5648Vhwwxkqln vaccinationFlu vaccine (#1)[facility]: 41-81-8999Dohcjgjt screenDiabetes [facility]: 1999 DTaP/Tdap/Td vaccine (1 - Tdap)DTaP/Tdap/Td vaccine (1 - Tdap)[facility]: 47-67-2892Fmyupsnht B vaccine (1 of 3 - Risk 3-dose series) Hepatitis B vaccine (1 of 3 - Risk 3-dose series)[facility]: 11-11-1866Fbbrlgdy microalbuminuria testDiabetic microalbuminuria testMercy Health Tiff[facility] Hospital: 84-03-9870Rstqstpx retinal examDiabetic retinal examBON [facility]: 10-19-3811Nzssd screening for proteinDiabetic Alb to Cr ratio (uACR) testBon Secours St. [facility]: 74-46-5048IUE screeningHIV [facility]: 02-03-4886LMMJP-19 Vaccine (1)COVID-19 Vaccine (1)[facility] Work Phone: start: 90-42-0317Zkyzinht retinal examDiabetic retinal examMercy Health Tiffin Hospital: 72-91-4357Rxzdi panelLipid [facility]: 70-95-9307Tiipaifdlwev 0-64 years Vaccine (1 of 1 - PPSV23) Pneumococcal 0-64 years Vaccine (1 of 1 - PPSV23)[facility]: 44-61-2919Qgzflzyqw vaccine (1 of 2 - 2-dose childhood series)Varicella vaccine (1 of 2 - 2-dose childhood series)[facility]: 03-23-6951ZDSQG-19 Vaccine (#1)COVID-19 Vaccine (#1)[facility]: 1980 Hepatitis C screeningHepatitis C [place] End: 49-20-0956WfK1o (Bld) [Mass fraction]Hemoglobin A1C Lab Routine Type 2 diabetes mellitus without complication, without long-term currentuse of insulin (HCC) Essential hypertension 1 Occurrences starting 07/21/2020 until 07/21/2020 [place]:1 Occurrences starting 07/21/2020 until 07/21/2020HbA1c (Bld) [Mass fraction]Hemoglobin A1C Lab Routine Type 2 diabetes mellitus without complication, without long-term currentuse of insulin (HCC) Essential hypertension 07/21/2020 4:29 PM [place], [place] End: 31-75-8651Hcprthgwpx A1c/Hemoglobin.total in BloodBON [employer] Work Phone: comment on above:1 Occurrences starting 09/01/2022 until 09/01/2022 Immunizations Immunization DateImmunizationNotesCare EsjyimptKsdajxhp25-24-6792flxywjukobss polysaccharide vaccine, 23 Adriane Durán PARTS CLEANER - [facility] Work Phone: BON PropelComment on above:Result Comment: 2023-10-26: VIS DATE: 07/16/2019 Payers DatePayer CategoryPayerPolicy [id number] [id number] [id number] 1.2.840.871064.1.13.239.2.7.3.057[id number] 2..840.1.216972.3.57[id number] 2.16.840.1.693414.3.57[id number] 2.16.840.1.892781.3.57[id number] 2.16.840.1.022946.3.57[id number] 2.16.840.1.796558.3.57[id number] 2.16.840.1.663451.3.57[id number] 2.16.840.1.013308.3.57[id number] 2.16.840.1.502848.3.57[id number] 2.16840.1.673223.3.57[id number] 2.16840.1.670280.3.579.[id number] 2.840.1.370034.3.57[id number] 2.840.1.695560.3.57[id number] 2.840.1.769300.3.57[id number] 2.840.1.804401.3.57[id number] 2.840.1.669944.3.579.2.83542-78-0709Eoeyaqb15793959 2.840.1.560393.3.579.2.[id number] 2.840.1.934378.3.57[id number] 2.840.1.535976.3.57[id number] 2.16840.1.416944.3.57[id number] 2.840.1.231506.3.57[id number] 2.16.840.1.166099.3.57[id number] 2.16.840.1.714683.3.579.[id number] 2.16.840.1.450545.3.57[id number] 2.16.840.1.009826.3.579.2.[id number] 2.16.840.1.218940.3.57[id number] 2.16.840.1.271125.3.57[id number] 2.16.840.1.650505.3.57[id number] 2.16.840.1.709411.3.579.2.21689-97-7925Qeiydpq86986408 2.16.840.1.331310.3.579.2.89786-53-3715Fvfkyto95625973 2.16.840.1.835487.3.57[id number] 2.16.840.1.056963.3.579.2.30388-73-9461Wupj-qfj89186932522-91-0760Hkukcpk [id number] 1.2.840.268935.1.13.239.2.7.3.477575.315 Social History DateTypeDetailFacilityStart: 07-21-2020 End: 99-35-9296Cmdyann smoking status NHISCurrent every day smokerINOVA CHILDREN'S HOSPITALHistory of tobacco useCiMahaska Health: 07-21-2020 End: 30-76-9520Olsdwpi use and exposureNever usedKnox Community Hospital, LAYOLake [place]: 07-21-2020 End: 45-48-9159Nudwyzq SDOH Wcybxcdmu7EirjtKnox Community Hospital, LAYOLake [place]: 07-21-2020 End: 85-27-3440Cegtvqo SDOH Food Ipwwt8IuompKnox Community Hospital, LAYOart: 07-21-2020 History SDOH Transport Iui4JzpnzKnox Community Hospital, KYSex Assigned At BirthNot on file [facility], LAYOLake [place]: 66-03-1297Eimjrbbfjj smoked current (pack per day) - ReportedMiddletown Hospital Lang Ma Work Phone: start: 63-03-8943Heq Assigned At [facility] CenterTobacco2 packs a day Tobacco Use:.[facility] Tobacco smoking statusNo Smoking Status EnteredJoint Township District Memorial Hospital Sex Assigned At [facility] Start: 99-42-6898Jjhuyfc smoking statusHeavy tobacco smoker (finding)[facility] Hospitalobacco smoking statusNeverCherrington Hospitaltart: 02-19-2024 End: 85-12-2421Bzypiob smoking statusEx-smoker (finding)[facility] [place] [facility] Procedure CodeEquipment CodeEquipment Original TextEquipment IdentifierDates Dispense sufficient amount for indicated testing frequency plus additional to accommodate PRN testing needs. Dispense all needed supplies to include: monitor, strips, lancing device, lancets, controlsolutions, alcohol swabs.[id number] Start: 09-02-2022 Functional Status JcsbOhqefethjqVqywbwKicltubh20-79-8203Etapevjfjj StatusN/[facility]02-09-2024Functional StatusN/[facility] Clinical Notes 09-13-2022 to 04-07-2025 Note Date & GgmbYlzsRstorrjt41-99-7070 NotePatient Education Endocrinology Blood Glucose Monitoring, Adult To [...] glucose levels. In many cases, these goals maybe: ??? Before meals (preprandial): 80?130 mg/dL (4.4?7.2 [...] how to insert the test strip, apply bloodto the strip, and use the meter. 5. [...] Where to find more information ??? The [place] [employer]: diabetes.org ??? The Association of [...] levels in y (more content not included)... [facility]11-29-2024 NotePatient Education Cardiovascular Managing Your Hypertension Hypertension, also [...] pressure. It is a measure of the pressurein your arteries as the heart relaxes. For [...] low in salt (sodium), added sugar, and fat.An example eating plan is called the DASH [...] hypertension should eat less than 1,500 mg ofsodium a day. Lifestyle ??? Work with your [...] changes are not enough (more content not included)...[facility]10-24-2024 Note Patient Education Endocrinology Diabetes Mellitus and [...] level more than any other type of food.Eating carbs raises the amount of glucose in [...] (hypoglycemia), especially if you use insulin or takecertain diabetes medicines by mouth. Hypoglycemia can be [...] is where you will most often find freshfruits and vegetables, bulk grains, fresh meats, and [...] kale, chard, davi greens, mustard greens, and cabbage.Beets. Cauliflower. Broccoli. Carrots. Green beans. Tomatoes. Peppers. Onions. Cucumbers. [place] sprouts. Grains Whole grains, such as whole-wheat or whole- (more content not included)...[facility]07-02-2024 NotePatient Education Emergency Medicine Heart Attack A heart attack occurs when blood and oxygen supply to the heart is cut off. A heart attack can cause damage to the heart that cannot be fixed. A heart attack is also called a myocardial infarction, or OH. If you think you are having a [...] these instructions at home: Medicines ? Take rsnz-asu-tlfmtof and prescription medicines only as told by [...] or tobacco. If you need help quitting, askyour doctor. ? Avoid secondhand smoke. ? Exercise [...] skipping beats. ? You (more content not included)...[facility]02-09-2024 Hospital Discharge instructions Patient Education 10/26/2023 10:57:52 Obesity, Adult [...] ?Hypothyroidism. ?Polycystic ovarian syndrome (PCOS). ?Binge-eating disorder. ?Camilo syndrome. Taking certain medicines, such as steroids, [...] food choices, such as grocery stores and [employer] markets. What are the signs or symptoms? [...] pinch a fold of your skin and measureit. You may have other tests to check for underlying conditions. How is this treated? Treatment for this condition often includes changing your lifestyle. Treatment may include some or all of the following: Dietary changes. This may include developing a healthy meal plan. Regular physical activity. This may include activity that causes your heart to beat faster (aerobicexercise) and strength training. Work with your health [...] and how much exercise you get. Take rsbu-ulc-rohzksf and prescription medicines only as told by [...] provider. Document Revised: 04/11/2022 Document Reviewed: 04/11/2022 [employer] Patient Education 2022 [employer]. [facility] General Surgery [place] 12-28-2022 History of Present illness Narrative* Garcia Dixon PT - 09/13/2022 6:15 PM EST [facility] Physical Therapy Orthotic Fitting Plan of Care Date: 09/13/2022 Patient Name: Sultana Joshua : 1980 (41 y.o.) CSN #: [id number] Referring Physician: Monica Durán APRN * Diagnosis: Diabetes mellitus type II, E11.9 [...] s Signature: Date: 09/13/2022 documented in this encounterBON [facility] [employer] Phone: evaluation + Plan note Future Appointments Appointment Date:11/02/2023 08:40:00 AM Scheduled Provider:Rajat Zeng MD Location:[facility] Appointment Type:[facility] 15 [facility] Evaluation + Plan note Future Appointments Appointment Date:11/30/2023 08:40:00 AM Scheduled Provider:Rajat Zeng MD Location:[facility] Appointment Type:[facility] 15 [facility] Evaluation + Plan note Future Appointments Appointment Date:03/18/2024 07:20:00 AM Scheduled Provider:PASQUALE STERN CNP Location:[facility] Appointment Type:FM Open Future Scheduled Tests Laboratory* HgbA1c [facility] Future Appointments Appointment Date:08/15/2024 08:00:00 AM Scheduled Provider:PASQUALE STERN CNP Location:[facility] Appointment Type:FM Open Future Scheduled Tests Laboratory* HgbA1c 12/07/23 [facility] Evaluation + Plan note Future Appointments Appointment Date:01/13/2025 07:20:00 AM Scheduled Provider:PASQUALE STERN CNP Location:[facility] Appointment Type:FM Open Future Scheduled Tests Laboratory* HgbA1c 12/07/23 [facility] evaluation note* Diagnosis Other hyperlipidemia Type 2 diabetes mellitus without complication, without long-term current use of insulin (HCC) Essential hypertension Unspecified essential hypertension Erectile dysfunction, unspecified erectile dysfunction type documented in this encounter [facility] Work Phone: Hospital course Narrative No data available for this section [facility] Hospital Discharge instructions No data available for this section [facility] Progress note No data available for this section [facility] Assessments Diagnosis Type 2 diabetes mellitus without complication, without long-term current use of insulin (HCC) Essential hypertension Unspecified essential hypertension Diagnosis Right-sided chest pain Advance Directives No Advanced Directives Records FoundDocuments on File TypeDate RecordedPatient RepresentativeExplanationACP-Advance DirectiveACP-Power of Load Dispatcher Summary Purpose Family History No Family History [...] section and content) DATE CREATED AUTHOR 07/27/2020 [facility] DATE CREATED AUTHOR AUTHOR'S ORGANIZ ATION 06/25/2023 [facility] DATE CREATED AUTHOR AUTHOR'S ORGANIZ ATION 02/23/2024 [facility] DATE CREATED AUTHOR AUTHOR'S ORGANIZ ATION 03/19/2024 [facility] DATE CREATED AUTHOR AUTHOR'S ORGANIZ ATION 08/17/2024 [facility] DATE CREATED AUTHOR AUTHOR'S ORGANIZ ATION 10/16/2024 [facility] DATE CREATED AUTHOR AUTHOR'S ORGANIZ ATION 01/15/2025 [facility] DATE CREATED AUTHOR AUTHOR'S ORGANIZ ATION 04/09/2025 [facility] DATE CREATED AUTHOR AUTHOR'S ORGANIZ ATION 07/23/2025 [facility] Care Teams (unrecognized sec tion and content) Team MemberRelationshipSpecialtyStart DateEnd Date Monica Durán, PARTS CLEANER - MATCH MAKER [address] [place] [address] PCP - GeneralFamily Nurse Twrofgdgmzga50/4/20Team MemberRelationshipSpecialty Start DateEnd Date Monica Durán, PARTS CLEANER - MATCH MAKER [address] [place] [address] PCP - GeneralFamily Nurse Kqkiglgfmabg33/4/20 FOR RECORDS PERTAINING TO PATIENTS WHO ARE [...] BE BASED ON THE PRIMARY CLINICAL RECORDS. [facility] [employer] provides no warranty or guarantee of the accuracy or completeness of information in this document.
--- OUTSIDE RECORDS SUMMARY | 2025-08-03 04:51 | XMS_ITS | Patient Health Record ---
Author Organization [facility] Address [address] [place] [address] Care Team Providers Care Manufacturing Engineer Chief Name Role Phone Monica Durán CNP Primary Care Provider Unavail able Franco Wilson Unavailable [phone] Reason For Referral No Information Problems Problem Type SNOMED Code ICD Code Onset Dates Problem Status W/U Status Risk Notes Problem Acquired trigger finger (0523295 ) Trigger finger, left ring finger (M65.342) Activeconfirmed Plan Of Treatment No Information Insurance Providers Payer Name Payer Address Payer Phone Subscriber Number Group Number Insured Name Patient Relationship to Insured Coverage Start Date Coverage End Date Mayelin ALLAN [address] [place] [address] [id number] SULTANA JASSO Self - patient is the insured
--- OUTSIDE RECORDS SUMMARY | 2025-08-03 04:51 | XMS_ITS | Clinical Summary ---
Author Organization [facility] Address [address], [address] [place] [address] Care Team Providers Care Hematology Supervisor Name Role Phone DuránMonica navarro MOBILE HEALTH VEHICLE OPERATOR - PRINTING AGENT Primary Care Provide r Allergies No known active allergies Medications MedicationSigDispense QuantityRefillsLast FilledStart DateEnd DateStatus blood glucose monitor kit and supplies Indications:Type 2 diabetes mellitus without complication, without long-term current use of insulin (HCC)Dispense sufficient amount for indicated testing frequency plus additional to accommodate PRN testing needs. Dispense all needed supplies to include: monitor, strips, lancing device, lancets, controlsolutions, alcohol swabs. 1 kit 09/02/2022ctive amLODIPine (NORVASC) 10 MG tablet Take 1 tablet by mouth daily 90 tablet ctive enalapril (VASOTEC) 2.5 MG tablet Take 1 tablet by mouth daily 90 tablet ctive metFORMIN (GLUCOPHAGE) 1000 MG tablet Take 1 tablet by mouth 2 times daily (with meals) 180 tablet ctive omeprazole (PRILOSEC) 20 MG delayed release capsule TAKE 1 CAPSULE BY MOUTH ONE TIME A DAY BEFORE BREAKFAST 90 capsule ctive sildenafil (VIAGRA) 100 MG tablet Take 1 tablet by mouth as needed for Erectile Dysfunction 1 hour prior to sexual activity. Do not exceed more than 1 dose in 24 hours. 30 tablet ctive simvastatin (ZOCOR) 20 MG tablet Take 1 tablet by mouth daily 90 tablet ctive vitamin C (ASCORBIC ACID) 500 MG tablet Take 1 tablet by mouth daily 90 tablet ctive zinc gluconate 50 MG tablet Take 1 tablet by mouth daily 90 tablet ctive vitamin D (CHOLECALCIFEROL) 50 MCG (1999) TABS tablet Take 1 tablet by mouth daily 90 tablet ctive citalopram (CELEXA) 20 MG tablet TAKE ONE-HALF (12) TABLET BY MOUTH DAILY 15 tablet 10/03/2023ctive citalopram (CELEXA) 20 MG tablet Take one-half (1/2) tablet by mouth daily 45 tablet ctive SITagliptin (JANUVIA) 100 MG tablet Take 1 tablet by mouth daily 90 tablet ctive pioglitazone (ACTOS) 45 MG tablet Take 1 tablet by mouth daily 90 tablet 12/21/2023ctive Active Problems ProblemNoted DateDiagnosed DateNon-cardiac chest pain01/28/2021cute left-sided thoracic back pain01/28/2021Type 2 diabetes mellitus without complication, without long-term current use of tqsruof2408/17/2020Essential hypertension 08/17/20207096Slohcfx09/01/2387Jvlzayxafp12/01/2020Other ejrolebrjsyavc76/01/2020 Tobacco use08/17/2020 Immunizations ImmunizationAdministration DatesNext DuePneumococcal, PPSV23, PNEUMOVAX 23, (age 2y+), SC/IM, 0.5mL11/07/2021 Family History Medical HistoryRelationNameCommentsArthritisFatherCancerFatherDiabetesFather Heart DiseaseFatherStrokeFatherDiabetesMotherHigh Blood PressureMotherRelation NameStatusCommentsFatherMother Social History Tobacco UseTypesPacks/DayYears UsedDateSmoking Tobacco: Every ItxMdwbovlqew685 Smokeless Tobacco: Never Tobacco Cessation:Ready to Q uit: Not Asked; Counseling Given: Not Answered Alcohol UseStandard Drinks/WeekCommentsYes0 (1 standard drink = 0.6 oz pure alcohol)occAUDIT-CAnswerDate RecordedQ1: How often do you have a drink containing alcohol?Monthly or less06/22/2023Q2: How many drinks containing alcohol do you have on a typical day when you are drinking?Patient does not drink06/22/2023Q3: How often do you have six or more drinks on one occasion? Never06/22/2023Overall Financial Resource Strain (CARDIA)AnswerDate RecordedHow hard is it for you to pay for the very basics like food, housing, medical care, and heating?Not hard at all04/18/2023HQ-2AnswerDate RecordedPHQ-9 Total Score0 06/22/2023Hunger Vital SignAnswerDate RecordedWithin the past 12 months, you worried that your food would run out before you got the money to buymore.Never true04/18/2023Within the past 12 months, the food you bought just didn't last and you didn't have money to get more.Never true04/18/2023RAPARE - TransportationAnswerDate RecordedLack of Transportation (Medical)Not on file 04/18/2023In the past 12 months, has lack of transportation kept you from meetings, work, or from getting things needed for daily living?No04/18/2023 Housing Stability Vital SignAnswerDate RecordedUnable to Pay for Housing in the Last YearNot on file04/18/2023Number of Places Lived in the Last YearNot on file 04/18/2023In the last 12 months, was there a time when you did not have a steady place to sleep or slept in ashelter (including now)?No04/18/2023Food Insecurity AnswerDate RecordedWithin the past 12 months, you worried that your food would run out before you got the money to buymore.Within the past 12 months, the food you bought just didn't last and you didn't have money to get more.Interpersonal Safety Domain Source: IP Abuse ScreeningAnswerDate RecordedRead-Only, Retired: Physical CcyluZdeaxr24/06/2023Read-Only, Retired: Verbal EctdhIjpell32/06/2023Read-Only, Retired: Emotional bicsxCfdfza66/06/2023 Read-Only, Retired: Financial WmvusQwrdto62/06/2023Read-Only, Retired: Sexual zfaonRfglvb15/06/2023Sex and Gender InformationValueDate RecordedSex Assigned at KdymtFcft18/16/2022 11:11 PM ESTLegal AzdHbsg67/20/2020 4:19 PM EDTGender KfihyuyrGifo63/16/2022 11:11 PM ESTSexual GlbblrixfzuEtknlfrg83/16/2022 11:11 PM EST Last Filed Vital Signs Vital SignReadingTime TakenCommentsBlood Zitlslyy923/7910 7:00 AM EDT Ylczk147106/22/2023 7:00 AM GDTXrodqcsmnyx71.7 ??C (98 ??F)06/22/2023 5:50 AM EDT Respiratory Rdwp4228 7:00 AM EDTOxygen Zmkxcecexd75%06/22/2023 7:00 AM EDTInhaled Oxygen Concentration--Bkyaxn975.4 kg (250 lb)06/22/2023 5:50 AM EDT Edipcg835.4 cm (6' 1 )06/22/2023 5:50 AM EDTBody Mass Index32.9806/22/2023 5:50 AM EDT Plan of Treatment Health MaintenanceDue DateLast DoneCommentsDepression Tustidvqov68/26/1992 Diabetic retinal exam1997DTaP/Tdap/Td vaccine (1 - Tdap)1998 Hepatitis B vaccine (1 of 3 - 19+ 3-dose series)1998Diabetic Alb to Cr ratio (uACR) test2Pneumococcal 0-49 years Vaccine (2 of 2 - PCV)2A1C test (Diabetic or Prediabetic), 11/07/2021, 05/09/2021, Additional history wejqsyUiwhuj67/16/202312/, 11/07/2021, 01/28/2021, Additional history existsDiabetic foot exam09/02/2023 09/02/2022, 11/07/2021, 08/17/2020GFR test (Diabetes, CKD 3-4, OR last GFR 15-59), 09/01/2022, 11/07/2021, Additional history exists Hjsoanunzqj18/26/2025olorectal Cancer Aaqvux1511/12/2024FIT/FOBT: Average risk 2024Fecal-DNA (Cologuard): Average risk2024Sigmoidoscopy/CT vregidgiarnh33/26/2025Flu vaccine (#1)04/17/2025OVID-19 Vaccine ( season)2025Diabetes tfyqqjQukcbkixlkev89/16/2022, 11/07/2021, 05/09/2021, Additional history existsHIV screenDiscontinuedHPV vaccine (No Doses Required) CompletedHepatitis A vaccineAged OutNo longer eligible based on patient's age to complete this topicHepatitis C screenDiscontinuedHib vaccineAged OutNo longer eligible based on patient's age to complete this topicMeningococcal (ACWY) vaccineAged OutNo longer eligible based on patient's age to complete this topic Meningococcal B vaccineAged OutNo longer eligible based on patient's age to complete this topicPolio vaccineAged OutNo longer eligible based on patient's age to complete this topicVaricella vaccineDiscontinued Procedures Procedure NamePriorityDate/TimeAssociated DiagnosisCommentsBASIC METABOLIC PANEL STAT1 5:54 AM EDT HEMOGLOBIN S4BVblzhkb19/16/2022 11:10 AM EST Type 2 diabetes mellitus without complication, without long-term current use of insulin (HCC) LIPID QJBIRTqvjpmc97/16/2022 11:09 AM EST Other hyperlipidemia MICROALBUMIN, ZWSxmeokp79/21/2022 5:13 PM EST Type 2 diabetes mellitus without complication, without long-term current use of insulin (HCC) from Last 3 Months or Most Recently Relevant to Health Maintenance Results * (ABNORMAL) BMP (06/22/2023 5:54 AM EDT)ComponentValueRef RangeTest Method Analysis TimePerformed AtPathologist FsskruuodVpmktl339375 - 144 mmol/L 06/22/2023 5:54 AM [facility] LABPotassium4.43.7 - 5.3 mmol/L1 5:54 AM [facility] EVRVhkwclpl65943 - 107 mmol/L1 5:54 AM [facility] MGKFP48990 - 31 mmol/L1 5:54 AM [facility] LABAnion Inp605 - 17 mmol/L1 5:54 AM [facility] DPEIcfqjod026(H)70 - 99 mg/dL06/22/2023 5:54 AM [facility] QEUPEL885 - 20 mg/dL06/22/2023 5:54 AM [facility] LABCreatinine0.90.7 - 1.2 mg/dL06/22/2023 5:54 AM [facility] LABEst, Glom Filt Rate>60>60 mL/min/1.75v94706/22/2023 5:54 AM [facility] Comment: ? These results are not intended for use in patients <18 years of age. ? eGFR results are calculated without a race factor using the 2020 CKD-EPI equation. Careful clinical correlation is recommended, particularly when comparing to results calculated using previous equations. The CKD-EPI equation is less accurate in patients with extremes of muscle mass, extra-renal metabolism of creatine, excessive creatine ingestion, or following therapy that affects renal tubular secretion. BUN/Creatinine Amopk905 - 5:54 AM [facility] LABCalcium9.98.6 - 10.4 mg/dL06/22/2023 5:54 AM [facility] LABSpecimen (Source)Anatomical Location / LateralityCollection Method / Volume Collection TimeReceived TimeBloodBLOOD SPECIMEN / Vctgkwa2006/22/2023 5:54 AM EDT 06/22/2023 5:56 AM EDT Narrative Authorizing ProviderResult TypeResult StatusEvan Seamons MDCHEMISTRY ORDERABLES Final ResultPerforming OrganizationAddressCity/State/ZIP CodePhone Number [facility] [address] [place], [place] [address] [phone] * (ABNORMAL) Hemoglobin A1C (09/01/2022 11:10 AM EST)ComponentValueRef RangeTest MethodAnalysis TimePerformed AtPathologist SignatureHemoglobin A1C6.7(H)4.0 - 6.0 %09/01/2022 11:10 AM ESTMERCY LABORATORIESEstimated Avg Lywskwd632me/dL 09/01/2022 11:10 AM ESTMERCY LABORATORIESComment: The ADA and AACC recommend providing the estimated average glucose result to permit better patient understanding of their HBA1c result. Specimen (Source)Anatomical Location / LateralityCollection Method / Volume Collection TimeReceived TimeBLOOD SPECIMEN / Kmoolun7809/01/2022 11:10 AM EST 09/01/2022 11:11 AM EST Narrative Authorizing ProviderResult TypeResult StatusMonica Durán MOBILE HEALTH VEHICLE OPERATOR - CNPCHEMISTRY ORDERABLESFinal ResultPerforming OrganizationAddressCity/State/ZIP CodePhone Number [facility] [address] [phone] [facility] [address] [id number] [phone] * (ABNORMAL) Lipid Panel (09/01/2022 11:09 AM EST)ComponentValueRef RangeTest MethodAnalysis TimePerformed AtPathologist EckdefisxPctlqeqqmgc767<200 mg/dL 09/01/2022 11:09 AM ESTMERLoopNet LABORATORIESComment: Cholesterol Guidelines: <200 Desirable 200-240 ??Borderline >240 Undesirable HDL37(L)>40 mg/dL09/01/2022 11:09 AM ESTMERCY LABORATORIESComment: HDL Guidelines: <40 Undesirable 40-59 ?Borderline >59 Desirable LDL Eeszhirsogu5739 - 130 mg/dL09/01/2022 11:09 AM ESTMERCY LABORATORIESComment: LDL Guidelines: <100 Desirable 100-129 ?? Near to/above Desirable 130-159 ?? Borderline >159 Undesirable Direct (measured) LDL and calculated LDL are not interchangeable tests. Chol/HDL Ratio5.0(H)<512 11:09 AM ESTMERCY LABORATORIESComment: Lrxpuasjjpthk189<150 mg/dL09/01/2022 11:09 AM ESTMERCY LABORATORIESComment: Triglyceride Guidelines: <150 Desirable 150-199 ??Borderline 200-499 ??High >499 Very high Based on AHA Guidelines for fasting triglyceride, June 2012. Specimen (Source)Anatomical Location / LateralityCollection Method / Volume Collection TimeReceived TimeBLOOD SPECIMEN / Xxhccis2409/01/2022 11:09 AM EST 09/01/2022 11:10 AM EST Narrative Authorizing ProviderResult TypeResult StatusMonica Durán MOBILE HEALTH VEHICLE OPERATOR - CNPCHEMISTRY ORDERABLESFinal ResultPerforming OrganizationAddressCity/State/ZIP CodePhone Number [facility] [address] [id number], [facility] [phone] [phone] * (ABNORMAL) Microalbumin, Ur (11/07/2021 5:13 PM EST)ComponentValueRef Range Test MethodAnalysis TimePerformed AtPathologist SignatureAlbumin Jyghl467(H) <21 mg/L11/07/2021 5:13 PM ESTMERCY LABORATORIESCreatinine, Ur114.839.0 - 259.0 mg/dL11/07/2021 5:13 PM ESTMERCY LABORATORIESMicroalb/Motorcycle Tester. Hhqgm397(H) <17 mcg/mg creat11/07/2021 5:13 PM ESTMERCY LABORATORIESSpecimen (Source) Anatomical Location / LateralityCollection Method / VolumeCollection Time Received SaglFvvhl17/21/2022 5:13 PM EST11/07/2021 5:14 PM EST Narrative Authorizing ProviderResult TypeResult John Durán MOBILE HEALTH VEHICLE OPERATOR - CNPURINE ORDERABLESFinal ResultPerforming OrganizationAddressCity/State/ZIP CodePhone Number [facility] [address] [place] [address], [facility] [phone] [phone] from Last 3 Months or Most Recently Relevant to Health Maintenance Care Teams Team MemberRelationshipSpecialtyStart DateEnd Date Monica Durán, MOBILE HEALTH VEHICLE OPERATOR - PRINTING AGENT [address] [place] [address] Dr BASS [address] [place] [address] PCP - GeneralFamily Nurse Practitioner09/26/22
[2025-08-03] MEDS: KETOROLAC TROMETHAMINE 60 MG/2 ML VIAL IM (05:08)
[2025-08-03] MEDS: ORPHENADRINE 60 MG/2 ML VIAL IM (05:09)
[2025-08-03 05:28] LABS: Glucose Urine UA >=1000 mg/dL (NEGATIVE)
[2025-08-03 05:37] LABS: Cast Seen? NONE SEEN #/LPF (NONE SEEN); Crystals Seen? None Seen #/HPF (None Seen); Urine Culture Indicated NO
== END 2025-08-03 05:56 | disposition home or self-care (01) ==
PROVIDERS: Emergency Provider Emergency Medicine; PCP Nurse Practitioner Family
DX: S39.012A Strain of muscle, fascia and tendon of lower back, initial encounter (principal); X50.0XXA Overexertion from strenuous movement or load, initial encounter
CPT/HCPCS: 36415; 72100; 81001; 82948; 96372; 99284; J1885; J2360

== ENCOUNTER 2025-08-03 22:20 | Emergency (ER) | payer BC, SELFPAY ==
[2025-08-03] VITALS (9 sets, daily range): BP systolic 155; BP diastolic 100; PULSE 116–126; TEMP 38.5; O2SAT 93–97; BMI 35.6
--- NOTE | 2025-08-03 23:01 | ECG_ITS ---
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 Measurements Intervals [place] Rate: 116 P: 45 OR: 152 QRS: -10 QRSD: 92 T: 90 QT: 304 QTc: 373 Interpretive Statements 1120 Sinus tachycardia 3214 Cannot rule out anteroseptal myocardial infarction, age undetermined 3634 Inferior myocardial infarction, age undetermined 5222 Moderate voltage criteria for LVH, may be normal variant 9150 abnormal ECG Compared to ECG 01/31/2019 09:07:58 Myocardial infarct finding now present Left ventricular hypertrophy now present Electronically Signed On 08-04-2025 21:29:45 EST by JENNIFER DUNN M.D.
--- NOTE | 2025-08-03 23:01 | XR_ITS ---
The [address] [address] Patient Name: SULTANA JASSO MRN: [id number] date: 1980 Sex: M Assigned Patient Location: ER Current Patient Location: ED.MAIN Accession/Order Number: [id number] Exam Date: 08/03/2025 23:06 Report Date: 08/03/2025 23:43 At the request of: DANTE BUTLER MD Procedure: XR chest 1V Plain film chest Single view HISTORY: Shortness of breath COMPARISON: 01/31/2019 FINDINGS: SUPPORT DEVICES: None POSTSURGICAL CHANGES: None HEART: Within normal limits PULMONARY ELIE: Within normal limits MEDIASTINUM: Unremarkable LUNGS AND PLEURA: No acute lung process, pleural effusion or pneumothorax identified. BONY STRUCTURES: Intact ADDITIONAL FINDINGS None XR/XR chest 1V IMPRESSION: No acute process. Impression dictated by: Willie Kothari M.D. 08/03/2025 11:43 PM Dictation Location: Advice CompanyFORMERLY GROUP HEALTH COOPERATIVE CENTRAL HOSPITALiFlexMe Electronically authenticated by: [id number] Y Date: 08/03/2025 23:43
--- NOTE | 2025-08-03 23:04 | ED.SOB1 ---
HPI - SOB/Dyspnea General Chief Complaint: Shortness of Breath/Dyspnea Stated Complaint: BACK PAIN, SOB Time Seen by Provider: 08/03/25 22:57 Source: patient Mode of arrival: walk-in History of Present Illness HPI Narrative: presents complaining of back pain and shortness of breath. Occ cough. Does not smoke cigarettes but does vape. no nausea or vomiting. Does have a fever. no edema of his lower extremities. Related Data Home Medications ?Medication ?Instructions ?Recorded ?Confirmed acetaminophen 325 mg capsule 650 mg PO DAILY 10/21/23 10/21/23 (Tylenol) amlodipine 10 mg tablet 10 mg PO DAILY 10/21/23 10/21/23 ascorbic acid (vitamin C) 500 mg 500 mg PO DAILY 10/21/23 10/21/23 tablet,extended release (C Complex) cholecalciferol (vitamin D3) 125 125 mcg PO DAILY 10/21/23 10/21/23 mcg (5,000 unit) tablet (Vitamin D3) citalopram 20 mg tablet 10 mg PO DAILY 10/21/23 10/21/23 enalapril maleate 2.5 mg tablet 2.5 mg PO Q24H 10/21/23 10/21/23 ibuprofen 400 mg tablet (IBU) 400 mg PO DAILY 10/21/23 10/21/23 metformin 1,000 mg tablet 1,000 mg PO BID 10/21/23 10/21/23 omeprazole 20 mg capsule,delayed 20 mg PO DAILY 10/21/23 10/21/23 release pioglitazone 45 mg tablet 45 mg PO DAILY 10/21/23 10/21/23 simvastatin 20 mg tablet 20 mg PO DAILY 10/21/23 10/21/23 sitagliptin phosphate 100 mg 100 mg PO DAILY 10/21/23 10/21/23 tablet (Januvia) vitamin B complex 1 tab PO DAILY 10/21/23 10/21/23 zinc gluconate 50 mg tablet 50 mg PO DAILY 10/21/23 10/21/23 Previous Rx's ?Medication ?Instructions ?Recorded cephalexin 500 mg capsule 500 mg PO QID 10 days #40 caps 10/21/23 mupirocin 2 % topical ointment 1 applic topical BID #15 grams 10/21/23 sulfamethoxazole 800 1 tab PO BID 7 days #14 tabs 10/21/23 mg-trimethoprim 160 mg tablet (Bactrim DS) nsnflbgtxcycsrg-hxiimahepqpjnkg-WD 10 ml PO Q6H PRN cold symptoms 08/24/24 2 mg-30 mg-10 mg/5 mL oral syrup #200 mL (Bromfed DM) cefdinir 300 mg capsule 300 mg PO BID 10 days #20 caps 08/24/24 ibuprofen 800 mg tablet 800 mg PO Q8H PRN pain #20 tabs 08/03/25 methocarbamol 750 mg tablet 750 mg PO Q6H PRN pain #20 tabs 08/03/25 Allergies Allergy/AdvReac Type Severity Reaction Status Date / Time No Known Drug Allergies Allergy Verified 08/03/25 22:51 Review of Systems ROS Status of ROS 10 or more systems reviewed and unremarkable except as noted in history and below [facility] Social History Smoking status: Current every day smoker Little interest or pleasure in doing things: not at all Feeling down, depressed, or hopeless: not at all Exam Constitutional Vital Signs, click to edit/add: Last Vital Signs Temp 98.5 F 08/04/25 03:39 Pulse 92 H 08/04/25 03:02 Resp 19 08/04/25 03:02 BP 133/93 H 08/04/25 03:02 Pulse Ox 93 L 08/04/25 02:50 O2 Del Method Room Air 08/04/25 01:51 Common normals: no apparent distress, average body habitus, oriented x3, no limitations, healthy appearing, alert and well nourished [facility] Common normals: normocephalic and head/scalp atraumatic Eye Common normals: EOMs intact bilaterally and conjunctivae normal Respiratory Common normals: normal respiratory effort, no retractions, no use of accessory muscles and clear to auscultation bilaterally Cardio Common normals: S1 normal heart sound and S2 normal heart sound Rate: tachycardic GI Common normals: Normal to inspection, nondistended, normoactive bowel sounds present, soft to palpation and non-tender Extremity Common normals: normal to inspection and full ROM Neuro Common normals: oriented x3, CN's II-XII intact bilaterally, moves all extremities and no focal motor deficits Psych Appearance: grossly normal Course Vital Signs Vital signs: Vital Signs Temperature 101.3 F H 08/03/25 22:45 Pulse Rate 121 H 08/03/25 22:45 Respiratory Rate 18 08/03/25 22:45 Blood Pressure 155/100 H 08/03/25 22:45 Pulse Oximetry 96 08/03/25 22:45 Oxygen Delivery Method Room Air 08/03/25 22:45 Temperature 98.5 F 08/04/25 03:39 Pulse Rate 92 H 08/04/25 03:02 Respiratory Rate 19 08/04/25 03:02 Blood Pressure 133/93 H 08/04/25 03:02 Pulse Oximetry 93 L 08/04/25 02:50 Oxygen Delivery Method Room Air 08/04/25 01:51 MDM - SOB/Dyspnea MDM Narrative Medical decision making narrative: presents with fever and back pain. Blood cultures x 2 ordered along with rocephin and zithromax. labs pending. cxray per radiologist neg for infiltrate. RA pulse ox 93%. CTA chest ordered due to complaint of shortness of breath and back pain. CTA neg for PE. Patient treated with Toradol and pain has improved. RBS 424. bicarb 23.4. Given 10u insulin SQ. Patient is feeling better except for continued back pain. COVID19 and influenza neg. 2nd troponin pending. 2nd trop remains neg. Patient is discharged home with working diagnosis of viral syndrome to explain his low grade fever, back pain and hyperglycemia Lab Data Labs: Lab Results 08/03/25 08/03/25 08/04/25 Range/Units 23:10 23:50 03:20 WBC 8.1 (4.0-11.0) 10^3/uL RBC 4.63 L (4.70-6.10) 10^6/uL Hgb 15.6 (14.0-18.0) g/dL Hct 42.7 (42.0-54.0) % MCV 92.2 (80.0-94.0) fL MCH 33.7 (25.9-34.0) pg MCHC 36.5 H (29.9-35.2) g/dL RDW 12.6 (11.0-15.0) % Plt Count 163 (150-450) 10^3/uL MPV 9.9 (9.5-13.5) fL Neut % (Auto) 81.9 H (43.0-75.0) % Lymph % (Auto) 7.3 L (20.5-60.0) % Crisp % (Auto) 10.2 (1.7-12.0) % Eos % (Auto) 0.0 L (0.9-7.0) % Baso % (Auto) 0.2 (0.2-2.0) % Neut # (Auto) 6.6 H (1.4-6.5) 10^3/uL Lymph # (Auto) 0.6 L (1.2-3.8) 10^3/uL Crisp # (Auto) 0.8 (0.3-0.8) 10^3/uL Eos # (Auto) 0.0 (0.0-0.7) 10^3/uL Baso # (Auto) 0.0 (0.0-0.1) 10^3/uL Abs Immat Gran (auto) 0.03 (0.00-0.03) 10^3/uL Imm/Tot Granulo (auto) 0.4 (0.0-0.5) % D-Dimer 0.41 (<=0.59) mg/L FEU Sodium 131 L (136-145) mmol/L Potassium 4.5 (3.5-5.1) mmol/L Chloride 98 (98-107) mmol/L Carbon Dioxide 23.4 (21.0-32.0) mmol/L Anion Gap 14.1 BUN 24.0 H (7.0-18.0) mg/dL Creatinine 1.45 H (0.70-1.30) mg/dL Est GFR ( Amer) >60 (>=60 mL/min/1.73m^2) Est GFR (Non-Af Amer) 53 L (>=60 mL/min/1.73m^2) BUN/Creatinine Ratio 16.6 Glucose 424 H (74-106) mg/dL Lactate 1.9 (0.4-2.0) mmol/L Calcium 9.4 (8.5-10.1) mg/dL Total Bilirubin 1.1 H (0.2-1.0) mg/dL Direct Bilirubin 0.3 H (0.0-0.2) mg/dL AST 25 (15-37) U/L ALT 70 H (16-63) U/L Alkaline Phosphatase 71 (46-116) U/L Troponin I High Sens 8.6 8.4 (4.0-76.1) pg/mL NT-Pro-B Natriuret Pep 185.0 (<=450.0) pg/mL Total Protein 7.4 (6.4-8.2) g/dL Albumin 4.0 (3.4-5.0) g/dL Globulin 3.4 g/dL Albumin/Globulin Ratio 1.2 Lipase 28.0 (16.0-77.0) U/L Influenza Type A Ag Negative Influenza Type B Ag Negative SARS-CoV-2 Ag (CV2AG) Negative (NEGATIVE) Discharge Plan Discharge Chief Complaint: Shortness of Breath/Dyspnea Clinical Impression: Acute viral syndrome, Back pain, Acute hyperglycemia Patient Disposition: Home, Self-Care Prescriptions / Home Meds: No Action wvjkbpxvmynpqwv-rjmvykulx-UM [Bromfed DM] 2-30-10 mg/5 mL syrup 10 ml PO Q6H PRN (Reason: cold symptoms) Qty: 200 0RF cefdinir 300 mg capsule 300 mg PO BID 10 Days Qty: 20 0RF amlodipine 10 mg tablet 10 mg PO DAILY citalopram 20 mg tablet 10 mg PO DAILY enalapril maleate 2.5 mg tablet 2.5 mg PO Q24H metformin 1,000 mg tablet 1,000 mg PO BID pioglitazone 45 mg tablet 45 mg PO DAILY omeprazole 20 mg capsule,delayed release(DR/EC) 20 mg PO DAILY simvastatin 20 mg tablet 20 mg PO DAILY Januvia 100 mg tablet 100 mg PO DAILY ascorbic acid (vitamin C) [C Complex] 500 mg tablet extended release 500 mg PO DAILY cholecalciferol (vitamin D3) [Vitamin D3] 125 mcg (5,000 unit) tablet 125 mcg PO DAILY zinc gluconate 50 mg tablet 50 mg PO DAILY vitamin B complex Tablet 1 tab PO DAILY Patient Comments: 1000 mcg daily acetaminophen [Tylenol] 325 mg capsule 650 mg PO DAILY ibuprofen [IBU] 400 mg tablet 400 mg PO DAILY sulfamethoxazole-trimethoprim [Bactrim DS] 800-160 mg tablet 1 tab PO BID 7 Days Qty: 14 0RF cephalexin 500 mg capsule 500 mg PO QID 10 Days Qty: 40 0RF mupirocin 2 % ointment 1 applic topical BID Qty: 15 0RF ibuprofen 800 mg tablet 800 mg PO Q8H PRN (Reason: pain) Qty: 20 0RF methocarbamol 750 mg tablet 750 mg PO Q6H PRN (Reason: pain) Qty: 20 0RF Print Language: Uzbek Instructions: Acute Low Back Pain (ED), Back Pain (ED), Diabetic Hyperglycemia (ED) Additional Instructions: follow up with your doctor next couple of days for recheck Referrals: Angelina Urbano SURVEILLANCE SENSOR OPERATOR [Primary Care Provider] - 1 week
[2025-08-03 23:32] LABS: Hematocrit 42.7 % (42.0-54.0); Hemoglobin 15.6 g/dL (14.0-18.0); Immature Granulocytes Abs Auto 0.03 10^3/uL (0.00-0.03); Immature Granulocytes Pct Auto 0.4 % (0.0-0.5); Lymphocytes Absolute Auto 0.6 10^3/uL (1.2-3.8); Mean Corpuscular HGB Conc 36.5 g/dL (29.9-35.2); Mean Corpuscular Hemoglobin 33.7 pg (25.9-34.0); Mean Corpuscular Volume 92.2 fL (80.0-94.0); Platelet Count 163 10^3/uL (150-450); Red Blood Count 4.63 10^6/uL (4.70-6.10); White Blood Count 8.1 10^3/uL (4.0-11.0)
[2025-08-03] MEDS: FENTANYL CITRATE/PF 100 MCG/2 ML VIAL IV (23:40)
[2025-08-03] MEDS: 0.9 % SODIUM CHLORIDE 1,000 ML 999 ML IV (23:40)
[2025-08-03] MEDS: AZITHROMYCIN 250 MG TABLET 500 MG PO (23:49)
[2025-08-03 23:51] LABS: Lactate/Lactic Acid 1.9 mmol/L (0.4-2.0)
[2025-08-03 23:58] LABS: Anion Gap 14.1; Blood Urea Nitrogen 24.0 mg/dL (7.0-18.0); Calcium 9.4 mg/dL (8.5-10.1); Carbon Dioxide 23.4 mmol/L (21.0-32.0); Chloride 98 mmol/L (98-107); Estimated GFR (African America >60 (>=60 mL/min/1.73m^2); Estimated GFR (Non-African Ame 53 (>=60 mL/min/1.73m^2); Glucose 424 mg/dL (74-106); NT Pro B Type Natriuretic Pept 185.0 pg/mL (<=450.0); Potassium 4.5 mmol/L (3.5-5.1); Sodium 131 mmol/L (136-145)
[2025-08-04] VITALS (35 sets, daily range): BP systolic 120–162; BP diastolic 66–96; PULSE 92–116; TEMP 36.8–37.4; O2SAT 90–95
[2025-08-04] LABS: Alanine Aminotransferase 70 U/L (16-63); Alkaline Phosphatase 71 U/L (46-116); Aspartate Amino Transferase 25 U/L (15-37)
[2025-08-04 00:01] LABS: Albumin Globulin Ratio 1.2; Albumin Level 4.0 g/dL (3.4-5.0); Globulin 3.4 g/dL; Lipase 28.0 U/L (16.0-77.0); Total Protein 7.4 g/dL (6.4-8.2)
[2025-08-04 00:16] LABS: SARS-CoV-2 Ag NEGATIVE (NEGATIVE)
[2025-08-04] MEDS: ACETAMINOPHEN 325 MG TABLET 650 MG PO (00:17)
[2025-08-04] MEDS: KETOROLAC TROMETHAMINE 30 MG/ML VIAL IVP (00:35)
[2025-08-04] MEDS: 0.9 % SODIUM CHLORIDE 1,000 ML 999 ML IV (00:49)
--- NOTE | 2025-08-04 04:12 | PC.NURSE ---
Recoater called for the insulin at 0408
[2025-08-04] MEDS: INSULIN ASPART 300 UNIT/3 ML PEN 10 UNIT SUBQ (04:17)
[2025-08-04 15:23] LABS: A. calcoaceticus-baumannii Cpx NOT DETECTED (NOT DETECTE); Bacteroides fragilis NOT DETECTED (NOT DETECTE); Candida auris NOT DETECTED (NOT DETECTE); Candida glabrata NOT DETECTED (NOT DETECTE); Enterobacterales NOT DETECTED (NOT DETECTE); Enterococcus faecalis NOT DETECTED (NOT DETECTE); Enterococcus faecium NOT DETECTED (NOT DETECTE); Klebsiella aerogenes NOT DETECTED (NOT DETECTE); Klebsiella pneumoniae group NOT DETECTED (NOT DETECTE); Proteus spp. NOT DETECTED (NOT DETECTE); Salmonella spp. NOT DETECTED (NOT DETECTE); Serratia marcescens NOT DETECTED (NOT DETECTE); Source BLOOD; Staphylococcus epidermidis NOT DETECTED (NOT DETECTE); Staphylococcus lugdunensis NOT DETECTED (NOT DETECTE); Stenotrophomonas maltophilia NOT DETECTED (NOT DETECTE); Streptococcus pyogenes NOT DETECTED (NOT DETECTE); Streptococcus spp. NOT DETECTED (NOT DETECTE)
[2025-08-04 16:32] LABS: mecA/C and MREJ (MRSA) NOT DETECTED (NOT DETECTE)
[2025-08-04 16:35] LABS: Staphylococcus spp. DETECTED (NOT DETECTE)
== END 2025-08-04 04:51 | disposition home or self-care (01) ==
PROVIDERS: Emergency Provider Internal Medicine; PCP Nurse Practitioner Family
DX: B34.9 Viral infection, unspecified (principal); M54.9 Dorsalgia, unspecified; R73.9 Hyperglycemia, unspecified; X50.0XXA Overexertion from strenuous movement or load, initial encounter; S39.012A Strain of muscle, fascia and tendon of lower back, initial encounter
CPT/HCPCS: 36415; 71045; 71275; 80048; 80076; 83605; 83690; 83880; 84484; 85025; 85378; 87040; 87150; 87804; 87811; 93005; 96365; 96375; 99285; J0696; J1885; J3010; Q9967

== ENCOUNTER 2025-08-04 18:37 | Emergency (ER) | payer BC, SELFPAY ==
[2025-08-04] VITALS (29 sets, daily range): BP systolic 122–168; BP diastolic 74–102; PULSE 91–116; TEMP 36.8; O2SAT 96; BMI 35.6
--- NOTE | 2025-08-04 19:33 | ED.GENADUL1 ---
HPI HPI - General Adult General Chief complaint: Recheck/Abnormal Lab/Rx Stated complaint: Recheck/Abnormal Lab/Rx Time Seen by Provider: 08/04/25 19:26 Source: patient Mode of arrival: walk-in Limitations: no limitations History of Present Illness HPI narrative: patient seen twice in the department past few days. First time seen for back pain. Seen again last PM and complained of continued back pain and also felt short of breath. He was called today because of positive blood cultures. Anaerobe bottle positive for staph spp and staph aureus. Patient returns and states he still does not feel well. Now complains of headache and points to his eyebrows. Has chronic neck pain. No change in his neck pain or stiffness. Still has pain of his back that increases with deep breath. States the pain radiates around to his gut. No recurrence of fever but now cough is productive. Does not feel he needs anything for his headache Related Data Home Medications ?Medication ?Instructions ?Recorded ?Confirmed acetaminophen 325 mg capsule 650 mg PO DAILY 10/21/23 10/21/23 (Tylenol) amlodipine 10 mg tablet 10 mg PO DAILY 10/21/23 10/21/23 ascorbic acid (vitamin C) 500 mg 500 mg PO DAILY 10/21/23 10/21/23 tablet,extended release (C Complex) cholecalciferol (vitamin D3) 125 125 mcg PO DAILY 10/21/23 10/21/23 mcg (5,000 unit) tablet (Vitamin D3) citalopram 20 mg tablet 10 mg PO DAILY 10/21/23 10/21/23 enalapril maleate 2.5 mg tablet 2.5 mg PO Q24H 10/21/23 10/21/23 ibuprofen 400 mg tablet (IBU) 400 mg PO DAILY 10/21/23 10/21/23 metformin 1,000 mg tablet 1,000 mg PO BID 10/21/23 10/21/23 omeprazole 20 mg capsule,delayed 20 mg PO DAILY 10/21/23 10/21/23 release pioglitazone 45 mg tablet 45 mg PO DAILY 10/21/23 10/21/23 simvastatin 20 mg tablet 20 mg PO DAILY 10/21/23 10/21/23 sitagliptin phosphate 100 mg 100 mg PO DAILY 10/21/23 10/21/23 tablet (Januvia) vitamin B complex 1 tab PO DAILY 10/21/23 10/21/23 zinc gluconate 50 mg tablet 50 mg PO DAILY 10/21/23 10/21/23 Previous Rx's ?Medication ?Instructions ?Recorded cephalexin 500 mg capsule 500 mg PO QID 10 days #40 caps 10/21/23 mupirocin 2 % topical ointment 1 applic topical BID #15 grams 10/21/23 sulfamethoxazole 800 1 tab PO BID 7 days #14 tabs 10/21/23 mg-trimethoprim 160 mg tablet (Bactrim DS) hhkvolwvwhpyrfg-jtkqjxatozlfrkc-ZT 10 ml PO Q6H PRN cold symptoms 08/24/24 2 mg-30 mg-10 mg/5 mL oral syrup #200 mL (Bromfed DM) cefdinir 300 mg capsule 300 mg PO BID 10 days #20 caps 08/24/24 ibuprofen 800 mg tablet 800 mg PO Q8H PRN pain #20 tabs 08/03/25 methocarbamol 750 mg tablet 750 mg PO Q6H PRN pain #20 tabs 08/03/25 Allergies Allergy/AdvReac Type Severity Reaction Status Date / Time No Known Drug Allergies Allergy Verified 08/04/25 18:43 Opioid HPI Opioid Management Most Recent Opioid Data: Last Pain Scale 8 Today, 19:46 Last NOV Pain Assessment Today, 00:35 Review of Systems ROS Status of ROS 10 or more systems reviewed and unremarkable except as noted in history and below [facility] Social History Smoking status: Current every day smoker Little interest or pleasure in doing things: not at all Feeling down, depressed, or hopeless: not at all Exam Constitutional Vital Signs, click to edit/add: Last Vital Signs Temp 98.3 F 08/04/25 18:43 Pulse 101 H 08/04/25 21:50 Resp 27 H 08/04/25 21:50 BP 129/88 08/04/25 21:45 Pulse Ox 96 08/04/25 18:43 Common normals: no apparent distress, average body habitus, oriented x3, no limitations, healthy appearing, alert and well nourished [facility] Common normals: normocephalic and head/scalp atraumatic Other: sinuses nontender Eye Common normals: PERRL and EOMs intact bilaterally Respiratory Common normals: normal respiratory effort, no retractions, no use of accessory muscles and clear to auscultation bilaterally Cardio Common normals: S1 normal heart sound and S2 normal heart sound Rate: tachycardic GI Common normals: Normal to inspection, nondistended, normoactive bowel sounds present and soft to palpation Other: mild tenderness Extremity Common normals: normal to inspection and full ROM Neuro Common normals: oriented x3, CN's II-XII intact bilaterally, moves all extremities and no focal motor deficits Psych Appearance: grossly normal Course Vital Signs Vital signs: Vital Signs Temperature 98.3 F 08/04/25 18:43 Pulse Rate 116 H 08/04/25 18:43 Respiratory Rate 24 H 08/04/25 18:43 Blood Pressure 168/96 H 08/04/25 18:43 Pulse Oximetry 96 08/04/25 18:43 Temperature 98.3 F 08/04/25 18:43 Pulse Rate 101 H 08/04/25 21:50 Respiratory Rate 27 H 08/04/25 21:50 Blood Pressure 129/88 08/04/25 21:45 Pulse Oximetry 96 08/04/25 18:43 Medical Decision Making MDM Narrative Medical decision making narrative: atypical presentation. Ongoing lower back pain for 3 days. Pain is positional. Increased pain when rising from a supine to sitting position. Once he is lying down again the pain eases up. This is his 3rd ER visit in 3 days. First time seen for back pain. Returned last PM with low grade fever and complaint of backpain and shortness of breath. cxray per my review was suspicious for infiltrate right chest. Blood cultures ordered and patient given dose of Rocephin and zithromax. Neg complaint of chest pain. COVID 19 and influenza neg. CTA chest ordered due to continued complaint of increasing back pain with deep breath. CTA was neg. patient medicated for pain and hydrated and discharged home in improved condition. Today blood cultures in anaerobic bottle positive for Staph spp and Staph aureus. repeat blood cultures obtained and Vanco ordered. labs ordered again along with CT abdomen due to complaint of pain of his back radiating around to his abdomen. CT with gallbladder sludge and cholelithiasis. normal bile ducts and nondistended gallbladder. Patient re examined adn does not have RUQ or epigastric tenderness. LFTs with normal alk phos and only mildly elevated AST and ALT labs however revealed elevated troponin 3281. Patient has history of diabetes and HTN. He is not aware of any heart disease. EKG from yesterday with Q wave in inferior and anterior leads with nonspecific T changes . NSR. Repeat EKG tonight unchanged from last PM with old inferior and anterior wall scar. Discussed with hospitalist at [facility]. Repeat troponin remains elevated but has decreased some. Patient accepted in transfer Lab Data Labs: Lab Results 08/04/25 08/04/25 08/04/25 Range/Units 19:05 19:18 20:30 WBC 8.4 (4.0-11.0) 10^3/uL RBC 4.71 (4.70-6.10) 10^6/uL Hgb 15.6 (14.0-18.0) g/dL Hct 43.1 (42.0-54.0) % MCV 91.5 (80.0-94.0) fL MCH 33.1 (25.9-34.0) pg MCHC 36.2 H (29.9-35.2) g/dL RDW 12.7 (11.0-15.0) % Plt Count 165 (150-450) 10^3/uL MPV 10.0 (9.5-13.5) fL Neut % (Auto) 77.6 H (43.0-75.0) % Lymph % (Auto) 9.5 L (20.5-60.0) % [place] % (Auto) 11.8 (1.7-12.0) % Eos % (Auto) 0.0 L (0.9-7.0) % Baso % (Auto) 0.4 (0.2-2.0) % Neut # (Auto) 6.5 (1.4-6.5) 10^3/uL Lymph # (Auto) 0.8 L (1.2-3.8) 10^3/uL [place] # (Auto) 1.0 H (0.3-0.8) 10^3/uL Eos # (Auto) 0.0 (0.0-0.7) 10^3/uL Baso # (Auto) 0.0 (0.0-0.1) 10^3/uL Abs Immat Gran (auto) 0.06 H (0.00-0.03) 10^3/uL Imm/Tot Granulo (auto) 0.7 H (0.0-0.5) % ESR 51 H (<=15) mm/hr Sodium 132 L (136-145) mmol/L Potassium 4.3 (3.5-5.1) mmol/L Chloride 99 (98-107) mmol/L Carbon Dioxide 23.8 (21.0-32.0) mmol/L Anion Gap 13.5 BUN 19.0 H (7.0-18.0) mg/dL Creatinine 1.25 (0.70-1.30) mg/dL Est GFR ( Amer) >60 (>=60 mL/min/1.73m^2) Est GFR (Non-Af Amer) >60 (>=60 mL/min/1.73m^2) BUN/Creatinine Ratio 15.2 Glucose 315 H (74-106) mg/dL Lactate 1.8 (0.4-2.0) mmol/L Calcium 9.5 (8.5-10.1) mg/dL Total Bilirubin 1.2 H (0.2-1.0) mg/dL AST 41 H (15-37) U/L ALT 71 H (16-63) U/L Alkaline Phosphatase 68 (46-116) U/L Troponin I High Sens 3281.4 H* (4.0-76.1) pg/mL C-Reactive Protein 23.23 H (<=0.50) mg/dL Total Protein 7.4 (6.4-8.2) g/dL Albumin 3.6 (3.4-5.0) g/dL Globulin 3.8 g/dL Albumin/Globulin Ratio 0.9 Lipase 21.0 (16.0-77.0) U/L Urine Color Yellow (YELLOW) Urine Clarity Clear (CLEAR) Urine pH 6.0 (5.0-9.0) Ur Specific [place] 1.020 (1.005-1.025) Urine Protein >=300 A (NEG/TRACE) mg/dL Urine Glucose (UA) >=1000 A (NEGATIVE) mg/dL Urine Ketones 15 A (NEGATIVE) mg/dL Urine Occult Blood Small A (NEGATIVE) Urine Nitrite Negative (NEGATIVE) Urine Bilirubin Negative (NEGATIVE) Urine Urobilinogen 1.0 (0.2-1.0) EU/dL Ur Leukocyte Esterase Negative (NEGATIVE) Urine RBC 2-5 A (0-2) #/HPF Urine WBC 0-2 A (NONE SEEN) #/HPF Ur Squamous Epith Cells Rare (NONE/RARE) #/LPF Urine Crystals None seen (None Seen) #/HPF Urine Bacteria Trace A (NONE SEEN) #/HPF Urine Casts None seen (NONE SEEN) #/LPF Urine Mucus Trace A (NONE SEEN) 08/04/25 Range/Units 22:05 WBC (4.0-11.0) 10^3/uL RBC (4.70-6.10) 10^6/uL Hgb (14.0-18.0) g/dL Hct (42.0-54.0) % MCV (80.0-94.0) fL MCH (25.9-34.0) pg MCHC (29.9-35.2) g/dL RDW (11.0-15.0) % Plt Count (150-450) 10^3/uL MPV (9.5-13.5) fL Neut % (Auto) (43.0-75.0) % Lymph % (Auto) (20.5-60.0) % [place] % (Auto) (1.7-12.0) % Eos % (Auto) (0.9-7.0) % Baso % (Auto) (0.2-2.0) % Neut # (Auto) (1.4-6.5) 10^3/uL Lymph # (Auto) (1.2-3.8) 10^3/uL [place] # (Auto) (0.3-0.8) 10^3/uL Eos # (Auto) (0.0-0.7) 10^3/uL Baso # (Auto) (0.0-0.1) 10^3/uL Abs Immat Gran (auto) (0.00-0.03) 10^3/uL Imm/Tot Granulo (auto) (0.0-0.5) % ESR (<=15) mm/hr Sodium (136-145) mmol/L Potassium (3.5-5.1) mmol/L Chloride (98-107) mmol/L Carbon Dioxide (21.0-32.0) mmol/L Anion Gap BUN (7.0-18.0) mg/dL Creatinine (0.70-1.30) mg/dL Est GFR ( Amer) (>=60 mL/min/1.73m^2) Est GFR (Non-Af Amer) (>=60 mL/min/1.73m^2) BUN/Creatinine Ratio Glucose (74-106) mg/dL Lactate (0.4-2.0) mmol/L Calcium (8.5-10.1) mg/dL Total Bilirubin (0.2-1.0) mg/dL AST (15-37) U/L ALT (16-63) U/L Alkaline Phosphatase (46-116) U/L Troponin I High Sens 3079.1 H* (4.0-76.1) pg/mL C-Reactive Protein (<=0.50) mg/dL Total Protein (6.4-8.2) g/dL Albumin (3.4-5.0) g/dL Globulin g/dL Albumin/Globulin Ratio Lipase (16.0-77.0) U/L Urine Color (YELLOW) Urine Clarity (CLEAR) Urine pH (5.0-9.0) Ur Specific [place] (1.005-1.025) Urine Protein (NEG/TRACE) mg/dL Urine Glucose (UA) (NEGATIVE) mg/dL Urine Ketones (NEGATIVE) mg/dL Urine Occult Blood (NEGATIVE) Urine Nitrite (NEGATIVE) Urine Bilirubin (NEGATIVE) Urine Urobilinogen (0.2-1.0) EU/dL Ur Leukocyte Esterase (NEGATIVE) Urine RBC (0-2) #/HPF Urine WBC (NONE SEEN) #/HPF Ur Squamous Epith Cells (NONE/RARE) #/LPF Urine Crystals (None Seen) #/HPF Urine Bacteria (NONE SEEN) #/HPF Urine Casts (NONE SEEN) #/LPF Urine Mucus (NONE SEEN) Imaging Data Chest x-ray: Radiologist's impression: ITS Impressions Abdomen/Pelvis CT 08/04/25 19:45 IMPRESSION: No acute findings. Constipation proximally. Punctate bilateral nephrolithiasis. Cholelithiasis and gallbladder sludge. Impression dictated by: Willie Kothari M.D. 08/04/2025 8:09 PM Dictation Location: [place] [id number] Electronically authenticated by: [id number] Y Date: 08/04/2025 20:09 Critical Care Time Critical Care Time Total Critical Care Time: 45 Discharge Plan Discharge Chief Complaint: Recheck/Abnormal Lab/Rx Clinical Impression: Troponin level elevated, Back pain, Cholelithiasis Patient Disposition: [facility]
--- OUTSIDE RECORDS SUMMARY | 2025-08-04 19:39 | XMS_ITS | CCD ---
Author Organization [facility] Care Team Providers Care Financial Planning Consultant Name Role Phone Monica Durán Primary Care Provider [phone] HOY, NICOLETTE Admitting Unavailable HOY, NICOLETTE Attending Unavailable HOY, NICOLETTE Consulting Unavailable HOY, NICOLETTE Attending Unavailable HOY, NICOLETTE Admitting Unavailable Luis Armando BONE CHAR KILN TENDER - FREIGHT BREAKERMonica Primary Care Provide r Luis Armando BONE CHAR KILN TENDER - FREIGHT BREAKERMonica Primary Care Provide r MONICA DURÁN Referring [...] Unavailable LEENA, PASQUALE A Attending Unavailable Lana, HEARING AID CONSULTANT Emily L Attending Unavailable Lana, HEARING AID CONSULTANT Emily L Admitting Unavailable Lana, Emily L [...] [No Known Medication Allergies]Propensity to adverse reactions (disorder)[facility] Repository Medications Current Medications MedicationDrug Class(es)DatesSig (Normalized)Sig (Original)amLODIPine 10 mg oral tablet (11 sources)Dihydropyridine Calcium Channel BlockerStart: 51-32-8731qwyx 1 tablet by mouth once dailyamLODIPine 10 mg Tab See Instructions, TAKE ONE TABLET BY MOUTH ONCE DAILY, # 90 tab(s), Refills(s)1, Pharmacy: [facility] 185, cm, 10/14/24 7:46:00 EST, Height/Length Dosing, 121.3, kg, 10/14/24 7:46:00 EST, Weight Dosing Start Date: 10/14/24 Status: OrderedStart: 06-18-2024 take 1 tablet by mouth once dailyamLODIPine 10 mg Tab 10 mg = 1 tab(s), Oral, Daily, # 90 tab(s), Refills(s) 1, Pharmacy: [facility] 185, cm, 05/15/24 7:36:00 EDT, Height/Length Dosing, 121.8, kg, 05/15/24 7:36:00 EDT, Weight Dosing Start Date: 06/18/24 Status: OrderedStart: 43-73-8561cnqd 1 tablet by mouth once dailyamLODIPine 10 mg Tab 10 mg = 1 tab(s), Oral, Daily, # 90 tab(s), Refills(s) 0 Start Date: 10/26/23 Status: OrderedStart: 38-73-1377gdda 1 tablet by mouth once dailyamLODIPine (NORVASC) 10 MG tablet Take 1 tablet by mouth daily 90 tablet 3 09/01/2022 ActiveStart: 76-32-9053ieqo 1 tablet by mouth once dailyamLODIPine (NORVASC) 10 MG tablet Take 1 tablet by mouth daily 90 tablet 2 01/28/2021 ActiveStart: 07-37-3422votn 1 tablet by mouth once daily amLODIPine (NORVASC) 5 MG tablet Take 1 tablet by mouth daily 30 tablet 3 08/17/2020 Activeamoxicillin 500 mg oral capsule (1 source)Penicillin-class AntibacterialStart: 49-07-9993ftaq 1 capsule by mouth every twelve hoursamoxicillin 500 mg Cap 500 mg = 1 cap(s), Oral, q12hr, # 20 cap(s), Refills(s) 0, Pharmacy: [facility], [facility], 185, cm, 10/14/24 7:46:00 EST, Height/Length Dosing, [...] mg oral capsule (2 sources)Nonsteroidal Anti-inflammatory DrugStart: 43-53-7452sked 1 capsule by mouth twice dailycelecoxib (CELEBREX) 100 MG capsule Take 1 capsule by mouth 2 times daily 30 capsule 1 09/13/2020 Activecephalexin 500 mg oral capsule (4 sources)Cephalosporin AntibacterialStart: 83-45-6026fiwjwvgxfr 500 mg Cap Refills(s) 0 Start Date: 10/26/23 Status: OrderedStart: 09-01-2022 End: 27-82-3982plxp 1 capsule by mouth four times dailycephALEXin (KEFLEX) 500 MG capsule Take 1 capsule by mouth 4 times daily for 7 days 28 capsule 0 09/08/2022 Activecholecalciferol 0.125 mg oral tablet (2 sources)Vitamin DCholecalciferol (VITAMIN D3) 125 MCG (5000 UT) TABS Take by mouth 0 Activecitalopram 20 mg oral tablet (12 sources)Serotonin Reuptake InhibitorStart: 34-31-3619dllz 10 mg by mouth once dailycitalopram 20 mg Tab 10 mg = 0.5 tab(s), Oral, Daily, # 30 tab(s), Refills(s) 0, [facility]acy: [facility] 185, cm, 04/09/24 7:36:00 EDT, Height/Length Dosing, 118.4, kg, 04/09/24 7:36:00 EDT, Weight Dosing Start Date: 04/30/24 Status: OrderedStart: 16-96-2515rzim 10 mg by mouth once dailycitalopram 20 mg Tab 10 mg = 0.5 tab(s), Oral, Daily, # 45 tab(s), Refills(s) 0 Start Date: 10/26/23 Status: OrderedStart: 30-85-9945tehq 0.5 tablet by mouth once daily citalopram (CELEXA) 20 MG tablet TAKE ONE-HALF (1/2) TABLET BY MOUTH DAILY 30 tablet 0 09/02/2022 ActiveStart: 05-63-2868zcct 0.5 tablet by mouth once daily citalopram (CELEXA) 20 MG tablet TAKE 1/2 TABLET BY MOUTH ONE TIME DAILY 45 tablet 1 10/20/2020 Activetake 1 tablet by mouth once dailycitalopram (CELEXA) 20 MG tablet Take 20 mg by mouth daily 0 Activeenalapril maleate 20 mg oral tablet (10 sources)Angiotensin Converting Enzyme InhibitorStart: 01-49-5111cidx 1 tablet by mouth once dailyenalapril 20 mg Tab 20 mg = 1 tab(s), Oral, Daily, # 90 tab(s), Refills(s) 1, [facility]acy: [facility] 185, cm, 10/14/24 7:46:00 EST, Height/Length Dosing, 121.3, kg, 10/14/24 7:46:00 EST,Weight Dosing Start Date: 10/14/24 Status: OrderedStart: 41-26-2295hwji 1 tablet by mouth once dailyenalapril 10 mg Tab 10 mg = 1 tab(s), Oral, Daily, # 30 tab(s), Refills(s) 0, Pharmacy: [facility], 185, cm, 07/10/24 7:24:00 EDT, Height/Length Dosing, 119.9, kg, 07/10/24 7:24:00 EDT, Weight Dosing Start Date: 07/10/24 Status: OrderedStart: 99-69-1145eurt 1 tablet by mouth once daily enalapril 20 mg Tab 20 mg = 1 tab(s), Oral, Daily, # 90 tab(s), Refills(s) 1, Pharmacy: [facility], [facility] 185, cm, 05/15/24 7:36:00 EDT, Height/Length Dosing, 121.8, kg, 05/15/24 7:36:00 EDT,Weight Dosing Start Date: 06/18/24 Status: OrderedStart: 24-33-1966ymlv 1 tablet by mouth once dailyenalapril 5 mg Tab 5 mg = 1 tab(s), Oral, Daily, # 30 tab(s), Refills(s) 0, Pharmacy: [facility], 185, cm, 02/19/24 7:35:00 EDT, Height/Length Dosing, 119.7, kg, 02/19/24 7:35:00 EDT,Weight Dosing Start Date: 02/19/24 Status: OrderedStart: 03-18-2958amim 1 tablet by mouth once dailyenalapril 2.5 mg Tab 2.5 mg = 1 tab(s), Oral, Daily, # 90 tab(s), Refills(s) 0 Start Date: 10/26/23 Status: OrderedStart: 02-77-2231ilpp 1 tablet by mouth once dailyenalapril (VASOTEC) 2.5 MG tablet Take 1 tablet by mouth daily 90 tablet 3 09/01/2022 Activefluconazole 100 mg oral tablet (1 source)Azole AntifungalStart: 02-19-2024 End: 86-90-9618kdhr 1 tablet by mouth once dailyfluconazole 100 mg Tab 100 mg = 1 tab(s), Oral, Daily, X 7 day(s), # 7 tab(s), Refills(s) 0, Pharmacy: [facility], 185, cm, 02/19/24 7:35:00 EDT, Height/Length [...] hr extended release oral tablet (2 sources)SulfonylureaStart: 46-04-7801jegu 1 tablet by mouth once daily glipiZIDE 10 mg ER Tab 10 mg = 1 tab(s), Oral, Daily, # 90 tab(s), Refills(s) 1, Pharmacy: [facility] 185, cm, 10/14/24 7:46:00 EST, Height/Length Dosing, 121.3, kg, 10/14/24 7:46:00 EST, Weight Dosing Start Date: 10/14/24 Status: OrderedStart: 06-09-1634lebo 1 tablet by mouth once dailyglipiZIDE 5 mg ER Tab 5 mg = 1 tab(s), Oral, Daily, # 90 tab(s), Refills(s) 1, Pharmacy: [facility] 185, cm, 05/15/24 7:36:00 EDT, Height/Length Dosing, 121.8, kg, 05/15/24 7:36:00 EDT, Weight Dosing Start Date: 06/18/24 Status: OrderedlamoTRIgine 100 mg oral tablet (3 sources)Mood Stabilizer, Anti-epileptic Agenttake 1 tablet by mouth once dailylamoTRIgine (LAMICTAL) 100 MG tablet Take 100 mg by mouth daily 0 Active metFORMIN hydrochloride 1000 mg oral tablet (12 sources)BiguanideStart: 22-04-8449fymf 1 tablet by mouth twice daily metformin 1000 mg Tab See Instructions, TAKE ONE TABLET BY MOUTH TWICE A DAY, # 180 tab(s), Refills(s) 1, Pharmacy: [facility] 185, cm, 10/14/24 7:46:00 EST, Height/Length Dosing, 121.3, kg, 10/14/24 7:46:00 EST, Weight Dosing Start Date: 10/14/24 Status: OrderedStart: 69-79-8257ezcu 1 tablet by mouth twice dailymetformin 1000 mg Tab 1,000 mg = 1 tab(s), Oral, BID, # 60 tab(s), Refills(s) 0, Pharmacy: [facility], 185, cm, 04/09/24 7:36:00 EDT, Height/Length Dosing, 118.4, kg, 04/09/24 7:36:00EDT, Weight Dosing Start Date: 05/02/24 Status: OrderedStart: 80-03-3384nkwj 1 tablet by mouth twice dailymetformin 1000 mg Tab 1,000 mg = 1 tab(s), Oral, BID, # 180 tab(s), Refills(s) 0 Start Date: 10/26/23Status: OrderedStart: 31-21-8275lhtw 1 tablet by mouth twice daily at mealtimemetFORMIN (GLUCOPHAGE) 1000 MG tablet Take 1 tablet by mouth 2 times daily (with meals) 90 tablet Activetake 1 tablet by mouth twice daily at mealtimemetFORMIN (GLUCOPHAGE) 1000 MG tablet Take 1,000 mg by mouth 2 times daily (with meals) 0 Activemupirocin 0.02 mg/mg topical ointment (4 sources)RNA Synthetase Inhibitor AntibacterialStart: 82-88-7897srhfrghzw Top 2% Oint Refill(s) 0 Start Date: 10/26/23 Status: Xtcrdkp38 hr nicotine 0.875 mg/hr transdermal system (3 sources)Cholinergic Nicotinic AgonistStart: 07-21-2020 End: 68-38-5718ylvuy 1 dose transdermal route once dailynicotine (NICODERM CQ) 21 MG/24HR Place 1 patch onto the skin daily 42 patch 0 07/21/2020 Active omeprazole 20 mg delayed release oral capsule (9 sources)Proton Pump InhibitorStart: 00-92-2341ahtv 1 capsule by mouth once dailyomeprazole 20 mg Cap-DR See Instructions, TAKE ONE CAPSULE BY MOUTH EVERY DAY, # 30 cap(s), Refills(s) 0, Pharmacy: [facility], 185, cm, 08/15/24 8:05:00 EST, Height/Length Dosing, 119.1, kg, 08/15/24 8:05:00 EST, Weight Dosing Start Date: 09/15/24 Status: OrderedStart: 83-75-1042heba 1 capsule by mouth once dailyomeprazole 20 mg Cap-DR 20 mg = 1 cap(s), Oral, Daily, # 30 cap(s), Refills(s) 0, Pharmacy: [facility], 185, cm, 04/09/24 7:36:00 EDT, Height/Length Dosing, 118.4, kg, 04/09/24 7:36:00 EDT, Weight Dosing Start Date: 04/30/24 Status: OrderedStart: 10-64-9617xyme 1 capsule by mouth once daily before breakfastomeprazole 20 mg Cap-DR 20 mg = 1 cap(s), Oral, Daily, before breakfast, # 90 cap(s), Refills(s) 0 Start Date: 10/26/23 Status: OrderedStart: 72-10-2308souh 1 capsule by mouth once daily before breakfastomeprazole (PRILOSEC) 20 MG delayed release capsule TAKE 1 CAPSULE BY MOUTH ONE TIME A DAY BEFORE BREAKFAST 90 capsule 3 09/01/2022 ActiveStart: 66-64-4951uopu 1 capsule by mouth once daily before breakfastomeprazole (PRILOSEC) 20 MG delayed release capsule Take 1 capsule by mouth every morning (before breakfast) 90 capsule 1 01/28/2021 Activepioglitazone 45 mg oral tablet (12 sources)Peroxisome Proliferator Receptor alpha Agonist, Peroxisome Proliferator Receptor gamma Agonist, ThiazolidinedioneStart: 68-47-0708hrds 1 tablet by mouth once dailypioglitazone 45 mg Tab 45 mg = 1 tab(s), Oral, Daily, # 90 tab(s), Refills(s) 1, Pharmacy: [facility], 185, cm, 10/14/24 7:46:00 EST, Height/Length Dosing, 121.3, kg, 10/14/24 7:46:00 EST, Weight Dosing Start Date: 10/14/24 Status: OrderedStart: 35-71-5637pljf 1 tablet by mouth once dailypioglitazone 45 mg Tab 45 mg = 1 tab(s), Oral, Daily, # 90 tab(s), Refills(s) 0, Pharmacy: [facility], 185, cm, 05/15/24 7:36:00 EDT, Height/Length Dosing, 121.8, kg, 05/15/24 7:36:00EDT, Weight Dosing Start Date: 06/24/24 Status: OrderedStart: 03-30-6304ggld 1 tablet by mouth once dailypioglitazone 45 mg Tab 45 mg = 1 tab(s), Oral, Daily, # 90 tab(s), Refills(s) 1, Pharmacy: [facility], 185, cm, 02/19/24 7:35:00 EDT, Height/Length Dosing, 119.7, kg, 02/19/24 7:35:00EDT, Weight Dosing Start Date: 02/19/24 Status: OrderedStart: 69-09-9371kdhj 1 tablet by mouth once daily pioglitazone 45 mg Tab 45 mg = 1 tab(s), Oral, Daily, # 90 tab(s), Refills(s) 0 Start Date: 10/26/23 Status: OrderedStart: 60-78-8890ekta 1 tablet by mouth once dailypioglitazone (ACTOS) 45 MG tablet TAKE 1 TABLET BY MOUTH ONE TIME DAILY 90 tablet 3 09/01/2022 Activetake 1 tablet by mouth once dailypioglitazone (ACTOS) 30 MG tablet Take 30 mg by mouth daily 0 Activesildenafil 100 mg oral tablet (2 sources)Phosphodiesterase 5 InhibitorStart: 69-61-1235epek 1 tablet by mouth every hour as needed, then take 1 tablet by mouth every twenty-four hours as neededsildenafil (VIAGRA) 100 MG tablet Take 1 tablet by mouth as needed for Erectile Dysfunction 1 hour prior to sexual activity. Do not exceed more than 1 dose in 24 hours. 30 tablet 1 09/01/2022 Activesimvastatin 20 mg oral tablet (12 sources)HMG-CoA Reductase InhibitorStart: 38-05-8948qtec 1 tablet by mouth once dailysimvastatin 20 mg Tab See Instructions, TAKE ONE TABLET BY MOUTH EVERY DAY, # 90 tab(s), Refills(s)1, [email or web address] 185, cm, 10/14/24 7:46:00 EST, Height/Length Dosing, 121.3, kg, 10/14/24 7:46:00 EST, Weight Dosing Start Date: 10/14/24 Status: OrderedStart: 62-51-4925lyrf 1 tablet by mouth once dailysimvastatin 20 mg Tab 20 mg = 1 tab(s), Oral, Daily, # 90 tab(s), Refills(s) 1, Pharmacy: [facility], 185, cm, 05/15/24 7:36:00 EDT, Height/Length Dosing, 121.8, kg, 05/15/24 7:36:00 EDT, Weight Dosing Start Date: 06/18/24 Status: OrderedStart: 80-03-1754usjg 1 tablet by mouth once dailysimvastatin 20 mg Tab 20 mg = 1 tab(s), Oral, Daily, # 90 tab(s), Refills(s) 0 Start Date: 10/26/23 Status: OrderedStart: 17-24-9850mdzw 1 tablet by mouth once dailysimvastatin (ZOCOR) 20 MG tablet Take 1 tablet by mouth daily 90 tablet 3 09/01/2022 ActiveStart: 38-95-2708bgxascugswv (ZOCOR) 20 MG tabletSITagliptin 100 mg oral tablet (10 sources)Dipeptidyl Peptidase 4 InhibitorStart: 75-11-2154bjbs 1 tablet by mouth once dailyJanuvia 100 mg Tab 100 mg = 1 tab(s), Oral, Daily, # 90 tab(s), Refills(s) 1, Pharmacy: [facility], 185, cm, 02/19/24 7:35:00 EDT, Height/Length Dosing, 119.7, kg, 02/19/24 7:35:00 EDT, Weight Dosing Start Date: 02/19/24 Status: OrderedStart: 22-47-6008zdlh 1 tablet by mouth once daily Januvia 100 mg Tab 100 mg = 1 tab(s), Oral, Daily, # 90 tab(s), Refills(s) 0 Start Date: 10/26/23 Status: OrderedStart: 18-95-7705ngdj 1 tablet by mouth once dailySITagliptin (JANUVIA) 100 MG tablet Take 1 tablet by mouth daily 90 tablet 3 09/01/2022 ActiveStart: 32-07-7668xpdv 1 tablet by mouth once dailySITagliptin (JANUVIA) 100 MG tablet Take 1 tablet by mouth daily 90 tablet 0 01/14/2021 ActiveStart: 70-61-3801SPFEYZA 100 MG tabletsulfamethoxazole 400 mg / trimethoprim 80 mg oral tablet (4 sources)Dihydrofolate Reductase Inhibitor Antibacterial, Sulfonamide AntimicrobialStart: 06-17-7972Dygnysz 400 mg-80 mg Tab Refill(s) 0 Start Date: 10/26/23 Status: Orderedzinc gluconate 50 mg oral tablet (2 sources)take 1 tablet by mouth once dailyzinc gluconate 50 MG tablet Take 50 mg by mouth daily 0 Active Problems Active Problems Problem ClassificationProblemDateDocumented DateEpisodic/ChronicAnxiety disorders (5 sources)Anxiety; Translations: [Anxiety disorder, unspecified]Onset: 849341-56-4358KarhdmnXhafskhm mellitus without complication (17 sources)Type 2 diabetes mellitus without complication; Translations: [Type 2 diabetes mellitus without complications]Onset: 002511-91-9982Thnpwul Disorders of lipid metabolism (13 sources)Hyperlipidemia; Translations: [Other hyperlipidemia]Onset: 501786-54-0982JhmyrlpQuvfvwnra hypertension (14 sources)Essential hypertension; Translations: [Essential (primary) hypertension]Onset: 067197-32-2630FcisidgKhuw disorders (11 sources)Depressive disorder; Translations: [Major depressive disorder, single episode, unspecified]Onset: 093860-59-0257JtgnyyyMqwkq aftercare (1 source)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; Translations: [OTH USP 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]Onset: 12-44-3665QqchtsqaEmzht male genital disorders (2 sources)Male erectile dysfunction, unspecified; Translations: [Impotence of organic origin]Onset: 61-08-4497ZrmxcfaTwztl nervous system disorders (1 source)Paige's palsy; 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]Onset: 75-24-7961Bzrbnxwy Other nutritional; endocrine; and metabolic disorders (1 source)Obesity; Translations: [Other obesity due to excess calories]Onset: 06-27-8440AvorwenJjzpr nutritional; endocrine; and metabolic disorders (1 source)Obese class II; Translations: [Body mass index (BMI) 35.0-35.9, adult] Onset: 66-63-6835KkvrubnVxjkg nutritional; endocrine; and metabolic disorders (8 sources)Body mass index 30+ - fclclut40-39-4541UjyqmsbEkega nutritional; endocrine; and metabolic disorders (5 sources)Obesity caused by energy jclvuzsne10-98-8360NshzphmMjnjblve codes; unclassified (2 sources)Nicotine-filled electronic cigarette akfl97-90-3505DsxcgyooIhwpqrqma and history of mental health and substance abuse codes (2 sources)Tobacco use and exposure - finding; Translations: [Tobacco use]Onset: 217005-66-6643NtcuwgzCzqr and subcutaneous tissue infections (9 sources)Abscess of face; Translations: [Cutaneous abscess of face]Onset: 37-84-4590Cngxjurx Past or Other Problems Problem ClassificationProblemDateDocumented DateEpisodic/ChronicNonspecific chest pain (4 sources)Right sided chest pain; Translations: [Non-cardiac chest pain]Onset: 436073-27-1189UqflehghQeydmfwt codes; unclassified (3 sources)Tobacco use and exposure - finding; Translations: [Tobacco use]Onset: 844633-39-4035RloqlwvdFhcdosvsijb; intervertebral disc disorders; other back problems (3 sources)Acute thoracic back pain; Translations: [Pain in thoracic spine] Onset: 494203-38-5152Ziubqknd Results Test NameValueInterpretationReference RangeFacilityAmbulatory Visit Summaryon 05-56-3255Mdibxppvej Visit SummaryAmbulatory Visit Summary SULTANA JOSHUA :1980 [...] 8:40 AM EST With: Emily Maurice Where: [address] [address]- Sunday2025 8:20 AM EST With: Emily Maurice Where: [address] [address]- Medications What How Much When [...] signed up for this yet, please contact Gendel at [phone] to get signed up today. Language Information Language assistance services are available as needed. [facility]/Clinic Noteon 86-57-2234Obusib Medicine Office/Clinic NoteSaint [facility]Clinic Note HPI Staff Pt is [...] MED In 4 weeks 07/07/2025 EDT [address] [place] [address]- Business (1) Additional Instructions: 4 weeks shoulder pain Emily Maurice FAM, MED In 3 months [address] [place] [address]- Additional Instructions: 3 months diabetes [...] 23-valent vaccine 11/07/2021 Recorded 2023-10-26: VIS DATE: 07/16/2019NoSt. Mary's [facility], [facility]onton CampusComment on above:Result Comment: Electronically Signed By: Emily Maurice\.br\Date and Time Signed: 07/21/25 09:28 LAREvgX1jxg 73-71-5355AjP8b (Bld) [Mass fraction]9.9 %High<=5.9[facility] Medical CenterComment on above:Performed By: #### [id number] #### [facility] [address] [place], [place] [address]Xalsvyit Letteron [phone] LetterProvider Letter July 21, 2025 SULTANA JOSHUA [address] [place] [address] : 1980 To Whom It May Concern, Please excuse above patient from work. Date of Appointment: 07/21/2025 May Return to Work On: 07/21/2025 Sincerely, [address] [address] BqghaoQagepxSt. Mary's [facility], [facility] CampusAmbulatory Visit Summaryon 27-14-2945Biofmnblte Visit SummaryAmbulatory Visit Summary SULTANA JOSHUA :1980 [...] 8:20 AM EST With: Emily Maurice Where: [address] [address]- Medications What How Much When Why Instructions New cyclobenzaprine (cyclobenzaprine 10 mg Tab) 1 Tablets By Mouth At bedtime as needed for for spasm Left shoulder pain BMI 36.0-36.9,adult Obesity (BMI 30- 39.9) Vapes nicotine containing substance Pickup at [facility] New meloxicam (meloxicam 15 mg Tab) 1 Tablets By Mouth Every day Left shoulder pain BMI 36.0-36.9,adult Obesity (BMI 30-39.9) Vapes nicotine containing substance Pickup at [facility] New methylPREDNISolone (Medrol 4 mg Tab) 1 Packets By Mouth As Directed Left shoulder pain BMI 36.0-36.9,adult Obesity (BMI 30-39.9) Vapes nicotine containing substance Duration: 6 Days as directed on package labeling Pickup at [facility] Unchanged amlodipine (amLODIPine 10 mg Tab) [...] a day (at bedtime) Hyperlipidemia Pharmacy Information [facility]: [address] [place] [id number] [phone] Allergies No Known Medication Allergies Problems Ongoing [...] signed up for this yet, please contact Gendel at [phone] to get signed up today. Language Information Language assistance services are available as needed. [facility] Medicine Office/Clinic Noteon 85-29-5074Pwgmae Medicine Office/Clinic NoteFasymmes hospital Medicine Office/Clinic Note Chief Complaint Lt Arm/Shoulder [...] spasm, # 30 tab(s), Refills(s) 0, Pharmacy: [facility], 185, cm, 06/30/25 9:11:00 EDT, Height/Length Dosing, 124.1, kg, 06/30/25 9:11:00 EDT, Weight Dosing meloxicam, 15 mg = 1 tab(s), Oral, Daily, # 30 tab(s), Refills(s) 0, Pharmacy: [facility], 185, cm, 06/30/25 9:11:00 EDT, Height/Length Dosing, 124.1, kg, 06/30/25 9:11:00 EDT, WeightDosing methylPREDNISolone, = 1 packet(s), Oral, As Directed, as directed on package labeling, X 6 day(s), # 21 tab(s), Refills(s) 0, Pharmacy: [facility], 185, cm, 06/30/25 9:11:00 EDT, Height/Length Dosing, 124.1, kg, 06/30/25 9:11:00 EDT, Weight Dosing XR Shoulder Complete Left 2. BMI 36.0-36.9,adult (Z68.36: Body mass index [BMI] 36.0-36.9, adult) BMI educatoin Ordered: cyclobenzaprine, 10 mg = 1 tab(s), Oral, Bedtime, PRN for spasm, # 30 tab(s), Refills(s) 0, Pharmacy: [facility], 185, cm, 06/30/25 9:11:00 EDT, Height/Length Dosing, 124.1, kg, 06/30/25 9:11:00 EDT, Weight Dosing meloxicam, 15 mg = 1 tab(s), Oral, Daily, # 30 tab(s), Refills(s) 0, Pharmacy: [facility], 185, cm, 06/30/25 9:11:00 EDT, Height/Length Dosing, 124.1, kg, 06/30/25 9:11:00 EDT, WeightDosing methylPREDNISolone, = 1 packet(s), Oral, As Directed, as directed on package labeling, X 6 day(s), # 21 tab(s), Refills(s) 0, Pharmacy: [facility], 185, cm, 06/30/25 9:11:00 EDT, Height/Length Dosing, 124.1, kg, 06/30/25 9:11:00 EDT, Weight Dosing XR Shoulder Complete Left 3. Obesity (BMI 30-39.9) (E66.9: Obesity, unspecified) see above Ordered: cyclobenzaprine, 10 mg = 1 tab(s), Oral, Bedtime, PRN for spasm, # 30 tab(s), Refills(s) 0, Pharmacy: [facility], 185, cm, 06/30/25 9:11:00 EDT, Height/Length Dosing, 124.1, kg, 06/30/25 9:11:00 EDT, Weight Dosing meloxicam, 15 mg = 1 tab(s), Oral, Daily, # 30 tab(s), Refills(s) 0, Pharmacy: [facility], 185, cm, 06/30/25 9:11:00 EDT, Height/Length Dosing, 124.1, kg, 06/30/25 9:11:00 EDT, WeightDosing methylPREDNISolone, = 1 packet(s), Oral, As Directed, as directed on package labeling, X 6 day(s), # 21 tab(s), Refills(s) 0, Pharmacy: [facility], 185, cm, 06/30/25 9:11:00 EDT, Height/Length Dosing, 124.1, kg, 06/30/25 9:11:00 EDT, Weight Dosing XR Shoulder Complete Left 4. Vapes nicotine containing substance (Z72.0: Tobacco use) consider not vaping Ordered: cyclobenzaprine, 10 mg = 1 tab(s), Oral, Bedtime, PRN for spasm, # 30 tab(s), Refills(s) 0, Pharmacy: [facility], 185, cm, 06/30/25 9:11:00 EDT, Height/Length Dosing, 124.1, kg, 06/30/25 9:11:00 EDT, Weight Dosing meloxicam, 15 mg = 1 tab(s), Oral, Daily, # 30 tab(s), Refills(s) 0, Pharmacy: [facility], 185, cm, 06/30/25 9:11:00 EDT, Height/Length Dosing, 124.1, kg, 06/30/25 9:11:00 EDT, WeightDosing methylPREDNISolone, = 1 packet(s), Oral, As Directed, as directed on package labeling, X 6 day(s), # 21 tab(s), Refills(s) 0, Pharmacy: [facility], 185, cm, 06/30/25 9:11:00 EDT, Height/Length Dosing, 124.1, kg, 06/30/25 9:11:00 EDT, Weight Dosing XR Shoulder Complete Left Follow-u (more content not included)...[facility]view Health InstituteComment on above:Result Comment: Electronically Signed By: Emily Maurice\.br\Date and Time Signed: 06/30/25 09:29 EDTProvider Letteron [id number] Letter Provider Letter June 30, 2025 SULTANA JOSHUA [address] [place] [address] : 1980 To Whom It May Concern, Please excuse above patient from work due to a doctors appointment Date of Illness: From: _ To: _ May Return to Work On:06-30-25 Restrictions: _ Comments: _ Sincerely, Family Medicine [address] [address] AjhxsbKklwehRiverview Health InstituteAmbulatory Visit Summaryon 80-82-1705Teemxvfzaf Visit SummaryAmbulatory Visit Summary SULTANA JOSHUA :1980 [...] AM EST With: PASQUALE STERN CNP Where: [facility] [address] [address]- Medications What How Much When Why Instructions New dulaglutide (Trulicity Pen 0.75 mg/ 0.5 mL subcutaneous solution) 0.75 Milligram Subcutaneous Every week Diabetes BMI 36.0-36.9,adult Obesity (BMI 30- 39.9) Vapes nicotine containing substance Tobacco use Refills: 2 Pickup at [facility]/pharmacy #[id number] Unchanged amlodipine (amLODIPine 10 mg [...] a day (at bedtime) Hyperlipidemia Pharmacy Information [facility]/pharmacy #[id number]: [address], [place] [phone] Allergies No Known Medication Allergies Problems Ongoing [...] yet, please contact Health Information Management at [phone] to get signed up today. Language Information Language assistance services are available as needed. [facility] Office/Clinic Noteon [phone] Medicine Office/[facility] NoteMem[facility] Chief Complaint Discuss diabetes The [...] qWeek, # 2 mL, Refills(s) 2, Pharmacy: [facility]/pharmacy #[id number], 185,cm, 05/14/25 8:43:00 EDT, Height/Length Dosing, 124.5, kg, 05/14/25 8:43:00 EDT, Weight Dosing 2. BMI 36.0-36.9,adult (Z68.36: Body mass index [BMI] 36.0-36.9, adult) BMI 36.38 Ordered: dulaglutide, 0.75 mg, SubCutaneous, qWeek, # 2 mL, Refills(s) 2, Pharmacy: [facility]/pharmacy #[id number], 185,cm, 05/14/25 8:43:00 EDT, Height/Length Dosing, 124.5, kg, 05/14/25 8:43:00 EDT, Weight Dosing 3. Obesity (BMI 30-39.9) (E66.9: Obesity, unspecified) - Continue dietary management with a focus on protein-rich foods and low-calorie beverages. Ordered: dulaglutide, 0.75 mg, SubCutaneous, qWeek, # 2 mL, Refills(s) 2, Pharmacy: [facility]/pharmacy #[id number], 185,cm, 05/14/25 8:43:00 EDT, Height/Length Dosing, 124.5, kg, 05/14/25 8:43:00 EDT, Weight Dosing 4. Vapes nicotine containing substance, (Z72.0: Tobacco use)Tobacco use - Discuss potential cessation strategies for vaping nicotine-containing substances. Ordered: dulaglutide, 0.75 mg, SubCutaneous, qWeek, # 2 mL, Refills(s) 2, Pharmacy: [facility]/pharmacy #[id number], 185,cm, 05/14/25 8:43:00 EDT, Height/Length [...] refills Glucometer, See Instru (more content not included)...[facility] InstituteComment on above:Result Comment: Electronically Signed By: PASQUALE STERN CNP\.br\Date and Time Signed: 05/14/25 09:19 EDTAmbulatory Visit Summaryon [id number] Visit SummaryAmbulatory Visit Summary SULTANA JOSHUA :1980 [...] 6 months Comments: Diabetes & HTN Where: [address] [place] [phone] [facility] (1) You Need to Complete the Following [...] Capsules By Mouth Every day Pickup at [facility] #72 Changed simvastatin (simvastatin 20 mg Tab) 1 Tablets By Mouth Once a day (at bedtime) Pickup at [facility] #72 Unchanged enalapril (enalapril 20 mg Tab) 1 Tablets By Mouth Every day [facility] Unchanged amlodipine (amLODIPine 10 mg [...] physician if questions or concerns Pharmacy Information [facility] #72: [address], [place] [phone] What How Much When Why Comments Stop [...] [facility] w/ Auto Diffon [id number] Absolute0.0 E9/LNormal 0.0-0.2[facility] HospitalComment on above:Performed By: #### [id number] #### [facility] [address], [place] [address]Viaggcgod/100 WBC (Bld)0.7 %Normal0.0-2.0[facility] CenterComment on above:Performed By: #### [id number] #### [facility] [address] [place] [address]Ymh Absolute0.2 E9/LNormal0.0-0.5[facility] Comment on above:Performed By: #### [id number] #### [facility] [address] [place] [address]Gtmpqwhwqxo/100 WBC (Bld)4.1 %Normal0.0-8.0[facility] CenterComment on above:Performed By: #### [id number] #### [facility] [address] [place] [address]Qvccweghvkj distribution width (RBC) [Ratio]13.6 %Normal 10.9-14.2FCleveland Clinic Euclid HospitalComment on above:Performed By: #### [id number] #### [facility] [address] [place] [address]Ccjtvrfftf (Bld) [Volume fraction]47.8 %Tbfvyg85.7-49.0[facility] CenterComment on above:Performed By: #### [id number] #### [facility] [address] [place] [address]Zcyiivllgs (Bld) [Mass/Vol]16.6 g/xKNbmuka06.5-17.5FCleveland Clinic Euclid HospitalComment on above:Performed By: #### [id number] #### [facility] [address] [place] [address]Xsfqo Absolute1.8 E9/LNormal1.0-4.0[facility] Comment on above:Performed By: #### [id number] #### [facility] [address], [place] [address]Mpwbdkdjgyo/100 WBC (Bld)40.6 %Kgyaah10.0-50.0[facility] CenterComment on above:Performed By: #### [id number] #### [facility] [address], [place] [address]RGT (RBC) [Entitic mass]33.3 lvEemima16.0-34.0[facility] CenterComment on above:Performed By: #### [id number] #### [facility] [address] [place] [address]DPID (RBC) [Mass/Vol]34.7 g/tUTvdlbs82.4-36.0[facility] CenterComment on above:Performed By: #### [id number] #### [facility] [address] [place] [address]ODZ (RBC) [Entitic vol]96.2 tDRdzwax30.0-100.0[facility] CenterComment on above:Performed By: #### [id number] #### [facility] [address] [place] [address]Vthz Absolute0.4 E9/LNormal0.2-1.0[facility] Comment on above:Performed By: #### [id number] #### [facility] [address] [place] [address]Zbxcuzypt/100 WBC (Bld)9.1 %Normal4.0-14.0[facility] CenterComment on above:Performed By: #### [id number] #### [facility] [address] [place] [address]Kzfsal Absolute2.0 E9/LNormal2.0-7.5[facility] Comment on above:Performed By: #### [id number] #### [facility] [address] [place] [address]Frrjqg Auto45.5 %Ozukdu85.0-75.0[facility] Comment on above:Performed By: #### [id number] #### [facility] [address] [place] [address]Fuaxinxt754.0 E9/CYuxkru238.0-500.0[facility] Comment on above:Performed By: #### [id number] #### [facility] [address], [place] [address]Bbhwkkld mean volume (Bld) [Entitic vol]8.8 fLNormal6.4-10.8 [facility] CenterComment on above:Performed By: #### [id number] #### [facility] [address], [place] [address]LRH5.0 E12/LNormal4.3-5.9[facility] CenterComment on above:Performed By: #### [id number] #### [facility] [address], [place] [address]XRX1.5 E9/LNormal4.0-11.0[facility] CenterComment on above:Performed By: #### [id number] #### [facility] [address], [place] [address]MXLnk 76-84-6275Xskuvwb [Mass/Vol]4.8 g/dLNormal3.3-5.0[facility] CenterComment on above:Performed By: #### [id number] #### [facility] [address] [place] [address]Fbsqdza/Globulin [Mass ratio]1.7 {ratio}Normal1.1-2.2FC[facility] Euclid HospitalComment on above:Performed By: #### [id number] #### [facility] [address], [place] [address]Lry Phos52 Int._Unit/PDfvktz71-35DxjizpLakehealth Beachwood Medical Center Comment on above:Performed By: #### [id number] #### [facility] [address], [place] [address]RKF34 Int._Unit/LHigh6-46[facility] CenterComment on above:Performed By: #### [id number] #### [facility] [address], [place] [address]Boeom gap [Moles/Vol]14 mmol/LNormal6-16[facility] CenterComment on above:Performed By: #### [id number] #### [facility] [address], [place] [address]AXB37 Int._Unit/LNormal5-43[facility] CenterComment on above:Performed By: #### [id number] #### [facility] [address], [place] [address]Zqcx Total0.7 mg/dLNormal0.0-1.1[facility] Comment on above:Performed By: #### [id number] #### [facility] [address], [place] [address]IIY/Creat Ratio20 No RqjxfCzknyw53-59AfzfyyLakehealth Beachwood Medical CenterComment on above:Performed By: #### [id number] #### [facility] [address], [place] [address]Mlwixci [Mass/Vol]10.2 mg/dLNormal8.9-11.1FCleveland Clinic Euclid HospitalComment on above:Performed By: #### [id number] #### [facility] [address], [place] [address]Yokaheal [Moles/Vol]100 mmol/BMqz324-581PaqsujLakehealth Beachwood Medical CenterComment on above:Performed By: #### [id number] #### [facility] [address], [place] [address]KM2 [Moles/Vol]25 mmol/EFjuwji85-48UthxbjLakehealth Beachwood Medical Center Comment on above:Performed By: #### [id number] #### [facility] [address], [place] [address]Qayefhhibv [Mass/Vol]1.2 mg/dLNormal0.5-1.3FC[facility]ucl[facility] HospitalComment on above:Performed By: #### [id number] #### [facility] [address], [place] [address]Imvvksuy (S) [Mass/Vol]2.9 g/dLNormal1.4-4.0[facility] CenterComment on above:Performed By: #### [id number] #### [facility] [address], [place] [address]Ucngbys [Mass/Vol]279 mg/kAEqjb28-577LgizkzLakehealth Beachwood Medical CenterComment on above:Performed By: #### [id number] #### [facility] [address], [place] [address]Mjsalpvyr [Moles/Vol]4.7 mmol/LNormal3.5-5.3FC[facility] Clinic Eucl[facility] HospitalComment on above:Performed By: #### [id number] #### [facility] [address], [place] [address]Hyjmsrr [Mass/Vol]7.7 g/dLNormal6.0-7.8[facility] CenterComment on above:Performed By: #### [id number] #### [facility] [address], [place] [address]Gokyop [Moles/Vol]134 mmol/VJbd979-158YbwgvmLakehealth Beachwood Medical CenterComment on above:Performed By: #### [id number] #### [facility] [address], [place] [address]Kqmd nitrogen [Mass/Vol]24 mg/dLHigh5-21[facility] Medical CenterComment on above:Performed By: #### [id number] #### [facility] [address], [place] [address]Ekpwms Medicine Office/Clinic Noteon [phone] Medicine Office/Clinic NoteFasymmes hospital Medicine Office/Clinic Note Chief Complaint The patient is concerned about diabetes management and medication costs. [facility] Staff Pt presents today for 3m follow [...] diabetes control. - [facility] and potential insurance coverage for alternatives. - Reviewed patient blood sugar log - Encourage low carb diet and daily exercise - Continue glipizide 10 mf, MetFormin 100 mg, and pioglitazone 45 mg- no refills today - F/U in 3-6 months pending laboratory results Ordered: CBC w/ Auto Diff Comprehensive Metabolic Panel HgbA1c Lab Specimen Collect [id number] Urine Microalbumin/Creatinine Ratio 2. HTN (hypertension) (I10: Essential (primary) hypertension) - Continue current antihypertensive medications: amlodipine and enalapril. Ordered: enalapril, 20 mg = 1 tab(s), Oral, Daily, # 90 tab(s), Refills(s) 1, Pharmacy: [facility] #72, 185, cm, 04/07/25 8:47:00 EDT, Height/Length Dosing, 122.4, kg, 04/07/25 8:47:00 EDT, WeightDosing CBC w/ Auto Diff Comprehensive Metabolic Panel Lipid Panel 3. Hyperlipidemia (E78.5: Hyperlipidemia, unspecified) - Plan to check cholesterol levels during this visit. Ordered: Lab Specimen Collect [id number] Lipid Panel 4. Depression, unspecified (F32.A) - [...] smoker (Z87.891: Personal history of nicotine dependence) [facility] (more content not included)...NormalLakehealth Beachwood Medical CenterComment on above:Result Comment: Electronically Signed By: PASQUALE STERN CNP\.shekhar\Date and Time Signed: 04/07/25 09:30 KZROngH0rrq 47-40-8980DhV4s (Bld) [Mass fraction]7.9 %High<=5.9[facility] CenterComment on above: Performed By: #### [id number] #### [facility] [address], [place] [address]Xwmft Panelon 95-95-0489Nntynvwlxxa [Mass/Vol]196 mg/dLNormal 120-200[facility] CenterComment on above:Performed By: #### [id number] #### [facility] [address], [place] [address]Entvqrdordt in HDL [Mass/Vol]36 mg/dLInvalid Interpretation CodeLakehealth Beachwood Medical CenterComment on above:Result Comment: '>= 60 LOW RISK' '<= 40 HIGH RISK'Performed By: #### [id number] #### [facility] [address], [place] [address]Prxiitnlmtn in LDL [Mass/Vol]104 mg/dLNormal<=129[facility] Medical CenterComment on above:Performed By: #### [id number] #### [facility] [address], [place] [address]Loohmdzvnrt in VLDL [Mass/Vol]74 mg/dLHigh7-40[facility] CenterComment on above:Performed By: #### [id number] #### [facility] [address], [place] [address]Tbzciaaobvic [Mass/Vol]370 mg/dLHigh<=149[facility] Medical CenterComment on above:Performed By: #### [id number] #### [facility] [address], [place] [address]UZJ Screen, Totalon 42-63-3340ADD Scrn Tot.0.3 ng/mLNormal 0.1-3.5FCleveland Clinic Euclid HospitalComment on above:Result Comment: The concentration of PSA determined by different manufacturers can vary due to diffe rences in assay methods and reagent specificity. Values obtained from different assay methods cannot be used interchangeably. The methodology used for this result was chemiluminescence using [employer]'s Access Hybritech PSA reagent.Performed By: #### [id number] #### [facility] [address], [place] [address]X MA/Cr Ratioon 66-38-2015Nzakcgan/Cr Nduyv614.3 mg/gm CrHigh .0-30.0[facility] CenterComment on above:Result Comment: 30-300 mg/g Cr indicates an increased risk for diabetic nephropathy. >300 mg/g Cr is consistent with clinical nephropathy.Performed By: #### [id number] #### [facility] [address], [place] [address]M Uzfrggtdpv28.7 mg/dLInvalid Interpretation CodeLakehealth Beachwood Medical CenterComment on above:Performed By: #### [id number] #### [facility] [address], [place] [address]V Blqrstih14.4 mg/dLHigh0.0-1.9[facility] Comment on above:Result Comment: Result Verified by DilutionPerformed By: #### [id number] #### [facility] [address], [place] [address]xDATcz 85-25-8497kCRD90 mL/min/1.73 b6Ukqala>=59L[facility] Medical CenterComment on above:Performed By: #### [id number] #### [facility] [address] [place], [place] [address]Kcrmujyqlk Visit Summaryon 60-71-8663Qdflpyxfyd Visit Summary Ambulatory Visit Summary SULTANA JOSHUA [...] AM EDT With: PASQUALE STERN CNP Where: [address] [address]- Medications What How Much When Why Instructions Changed enalapril (enalapril 20 mg Tab) 1 Tablets By Mouth Every day HTN (hypertension) Pickup at [facility]. Changed glipiZIDE (glipiZIDE 10 mg ER Tab) 1 Tablets By Mouth Every day Diabetes Pickup at [facility]. Unchanged amlodipine (amLODIPine 10 mg Tab) See instructions HTN (hypertension) TAKE ONE TABLET BY MOUTH ONCE DAILY Pickup at [facility]. Unchanged metformin (metformin 1000 mg Tab) See instructions Diabetes TAKE ONE TABLET BY MOUTH TWICE A [facility] Unchanged pioglitazone (pioglitazone 45 mg Tab) 1 Tablets By Mouth Every day Diabetes Pickup at [facility]. Unchanged simvastatin (simvastatin 20 mg Tab) See instructions Hyperlipidemia TAKE ONE TABLET BY MOUTH EVERY DAY [facility] Unchanged citalopram (citalopram 20 mg Tab) 0.5 Tablets By Mouth Every day Contact prescribing physician if questions or concerns Unchanged omeprazole (omeprazole 20 mg Cap-DR) See instructions TAKE ONE CAPSULE BY MOUTH EVERY DAYContact prescribing physician if questions or concerns Pharmacy Information [facility] [address] [place], [place] [id number] [phone] Allergies No Known Medication Allergies Problems Ongoing [...] you for choosing us for your care. [facility] InstituteCHEMISTRYOrdered By: SYSTEM SYSTEM on 10-47-5391Qnbmpsn [Mass/Vol]4.6 g/dLNormal3.3 - 5.0 gm/dLRemisol Chem Albumin/Globulin [Mass ratio]1.6 {ratio}Normal1.1 - 2.2Remisol ChemALP [Catalytic activity/Vol]50 [iU]/cBxdubo75 - 98 Int._Unit/LRemisol ChemALT No additional P-5'-P [Catalytic activity/Vol]68 [iU]/dHigh6 - 46 Int._Unit/LRemisol ChemAnion gap [Moles/Vol]12 mmol/LNormal6 - 16 mEq/LRemisol ChemAST [Catalytic activity/Vol]42 [iU]/dNormal5 - 43 Int._Unit/LRemisol ChemBilirubin [Mass/Vol] 1.1 mg/dLNormal0.0 - 1.1 mg/dLRemisol ChemCalcium [Mass/Vol]10.0 mg/dLNormal8.9 - 11.1 mg/dLRemisol ChemChloride [Moles/Vol]102 mmol/VRelput792 - 111 mmol/L Remisol ChemCholesterol [Mass/Vol]188 mg/qCKekvry895 - 200 mg/dLRemisol Chem Cholesterol in HDL [Mass/Vol]39 mg/dLInvalid Interpretation CodeRemisol Chem Comment on above:Result Comment: '>= 60 LOW RISK' '<= 40 HIGH RISK'Cholesterol in LDL [Mass/Vol]124 mg/dLNormal<=129mg/dLRemisol ChemCholesterol in VLDL [Mass/Vol]45 mg/dLHigh7 - 40 mg/dLRemisol ChemCO2 [Moles/Vol]27 mmol/NCviqul36 - 31 mmol/LRemisol ChemCreatinine [Mass/Vol]1.0 mg/dLNormal0.5 - 1.3 mg/dLRemisol NwsinMRZ54 mL/min/1.73 p0Fbpiuu>=59mL/min/1.73 x9Gatlcfy ChemGlobulin (S) [Mass/Vol]2.8 g/dLNormal1.4 - 4.0 gm/dLRemisol Chem Glucose [Mass/Vol]273 mg/bMXdet42 - 199 mg/dLRemisol ChemPotassium [Moles/Vol] 5.1 mmol/LNormal3.5 - 5.3 mmol/LRemisol ChemProtein [Mass/Vol]7.4 g/dLNormal6.0 - 7.8 gm/dLRemisol ChemSodium [Moles/Vol]136 mmol/LKeydei951 - 145 mmol/LRemisol ChemTriglyceride [Mass/Vol]226 mg/dLHigh<=149mg/dLRemisol ChemUrea nitrogen [Mass/Vol]14 mg/dLNormal5 - 21 mg/dLRemisol ChemUrea nitrogen/Creatinine [Mass ratio]14 mg/gvEltkxe36 - 20Remisol ChemCHEMISTRYOrdered By: Park Wills on 39-98-1317PpE5j (Bld) [Mass fraction]10.2 %High<=5.9%[facility] ChemAutoSSCMPon 45-25-0804Nmegwlc [Mass/Vol]4.6 g/dLNormal3.3-5.0[facility] Comment on above:Performed By: #### [id number] #### [facility] [address] [place] [address]Msgxikc/Globulin (S) [Mass conc ratio]1.1Mfqlqy4.1-2.2FCleveland Clinic Euclid HospitalComment on above:Performed By: #### [id number] #### [facility] [address], [place] [address]WID [Catalytic activity/Vol]50 Int._Unit/BCjepou64-35DxlvukLakehealth Beachwood Medical CenterComment on above:Performed By: #### [id number] #### [facility] [address] [place] [address]OAJ No additional P-5'-P [Catalytic activity/Vol]68 Int._Unit/L High6-46[facility] Medical CenterComment on above:Performed By: #### [id number] #### [facility] [address], [place] [address]Zybal gap [Moles/Vol]12 mmol/LNormal6-16[facility] Medical CenterComment on above:Performed By: #### [id number] #### [facility] [address] [place] [address]JOD [Catalytic activity/Vol]42 Int._Unit/LNormal5-43[facility] Medical CenterComment on above:Performed By: #### [id number] #### [facility] [address], [place] [address]Irtislchr [Mass/Vol]1.1 mg/dLNormal0.0-1.1FCleveland Clinic Euclid HospitalComment on above:Performed By: #### [id number] #### [facility] [address], [place] [address]Fynebfq [Mass/Vol]10.0 mg/dLNormal8.9-11.1FCleveland Clinic Euclid HospitalComment on above:Performed By: #### [id number] #### [facility] [address], [place] [address]Fjfybnbe [Moles/Vol]102 mmol/OEluzjt136-387MkalqsLakehealth Beachwood Medical CenterComment on above:Performed By: #### [id number] #### [facility] [address], [place] [address]SK4 [Moles/Vol]27 mmol/HHhglym57-53YrhyilLakehealth Beachwood Medical Center Comment on above:Performed By: #### [id number] #### [facility] [address], [place] [address]Rnneaiwfju [Mass/Vol]1.0 mg/dLNormal0.5-1.3FCleveland Clinic Euclid HospitalComment on above:Performed By: #### [id number] #### [facility] [address], [place] [address]Uoseisgs (S) [Mass/Vol]2.8 g/dLNormal1.4-4.0[facility] Medical CenterComment on above:Performed By: #### [id number] #### [facility] [address], [place] [address]Niqqrfm [Mass/Vol]273 mg/tQLtrd15-427QwrjqxLakehealth Beachwood Medical CenterComment on above:Performed By: #### [id number] #### [facility] [address], [place] [address]Mhfgdyyuj [Moles/Vol]5.1 mmol/LNormal3.5-5.3FCleveland Clinic Euclid HospitalComment on above:Performed By: #### [id number] #### [facility] [address], [place] [address]Jtymyeo [Mass/Vol]7.4 g/dLNormal6.0-7.8[facility] Medical CenterComment on above:Performed By: #### [id number] #### [facility] [address], [place] [address]Yggffa [Moles/Vol]136 mmol/YLxiugt829-973WmyomwLakehealth Beachwood Medical CenterComment on above:Performed By: #### [id number] #### [facility] [address], [place] [address]Gtpl nitrogen [Mass/Vol]14 mg/dLNormal5-21L[facility] Medical CenterComment on above:Performed By: #### [id number] #### [facility] [address], [place] [address]Zwtz nitrogen/Creatinine [Mass ratio]14 No NrwzcOswwhj22-73 [facility] CenterComment on above:Performed By: #### [id number] #### [facility] [address], [place] [address]Rimfwh Medicine Office/Clinic Noteon [phone] Medicine Office/Clinic NoteFasymmes hospital Medicine Office/Clinic Note Chief Complaint A1C follow up [facility] Staff Irma is a 43 year old [...] Daily, # 90 tab(s), Refills(s) 1, Pharmacy: [facility] 185, cm, 10/14/24 7:46:00 EST, Height/Length Dosing, 121.3, kg, 10/14/24 7:46:00 EST, Weight Dosing glipiZIDE, 10 mg = 1 tab(s), Oral, Daily, # 90 tab(s), Refills(s) 0, Pharmacy: [facility] 185, cm, 08/15/24 8:05:00 EST, Height/Length Dosing, 119.1, kg, 08/15/24 8:05:00 EST, Weight Dosing metformin, See Instructions, TAKE ONE TABLET BY MOUTH TWICE A DAY, # 180 tab(s), Refills(s) 1, Pharmacy: [facility] 185, cm, 10/14/24 7:46:00 EST, Height/Length Dosing, 121.3, kg, 10/14/24 7:46:00 EST, Weight Dosing pioglitazone, 45 mg = 1 tab(s), Oral, Daily, # 90 tab(s), Refills(s) 1, Pharmacy: [facility] 185, cm, 10/14/24 7:46:00 EST, Height/Length Dosing, 121.3, kg, 10/14/24 7:46:00 EST, Weight Dosing Comprehensive Metabolic Panel HgbA1c Lab Specimen Collect [id number] Lab Specimen Collect [id number] Lipid Panel 2. HTN (hypertension) (I10: Essential (primary) hypertension) Stable Controlled Encourage low sodium diet and exercise Amlodipine 10 mg, enalapril 20 mg refilled at today's visit Awaiting laboratory results f/u 3 months Ordered: amlodipine, See Instructions, TAKE ONE TABLET BY MOUTH ONCE DAILY, # 90 tab(s), Refills(s) 1, Pharmacy: [facility] 185, cm, 10/14/24 7:46:00 EST, Height/Length Dosing, 121.3, kg, 10/14/24 7:46:00 EST, Weight Dosing enalapril, 20 mg = 1 tab(s), Oral, Daily, # 90 tab(s), Refills(s) 1, Pharmacy: [facility] 185, cm, 10/14/24 7:46:00 EST, Height/Length Dosing, 121.3, kg, 10/14/24 7:46:00 EST, Weight Dosing enalapril, 10 mg = 1 tab(s), Oral, Daily, # 30 tab(s), Refills(s) 0, Pharmacy: [facility], 185, cm, 07/10/24 7:24:00 EDT, Height/Length Dosing, 119.9, kg, 07/10/24 7:24:00 EDT, WeightDosing glipiZIDE, 10 mg = 1 tab(s), Oral, Daily, # 30 tab(s), Refills(s) 0, Pharmacy: [facility] 185, cm, 08/15/24 8:05:00 EST, Height/Length Dosing, 11 (more content not included)...NormalLakehealth Beachwood Medical CenterComment on above:Result Comment: Electronically Signed By: PASQUALE STERN CNP\Date and Time Signed: 10/14/24 08:34 CKHBgyI5fkx 16-13-7809CuM8y (Bld) [Mass fraction]10.2 %High<=5.9L[facility] Beachwood Medical CenterComment on above:Performed By: #### [id number] #### [facility] Laboratory [address] [facility], [place] [address]Svdho Panelon 57-19-5644Mbazeyiecdf [Mass/Vol]188 mg/dLNormal 120-200L[facility] Beachwood Medical CenterComment on above:Performed By: #### [id number] #### [facility] [address], [place] [address]Sytrvjyrelp in HDL [Mass/Vol]39 mg/dLInvalid Interpretation CodeLakehealth Beachwood Medical CenterComment on above:Result Comment: '>= 60 LOW RISK' '<= 40 HIGH RISK'Performed By: #### [id number] #### [facility] [address], [place] [address]Oxmtcztfkxt in LDL [Mass/Vol]124 mg/dLNormal<=129L[facility]wood Medical CenterComment on above:Performed By: #### [id number] #### [facility] [address] [place], [place] [address]Whmkmmkbftt in VLDL [Mass/Vol]45 mg/dLHigh7-40L[facility]wood Medical CenterComment on above:Performed By: #### [id number] #### [facility] [address] [place], [place] [address]Irsluferudty [Mass/Vol]226 mg/dLHigh<=149L[facility] Beachwood Medical CenterComment on above:Performed By: #### [id number] #### [facility] [address], [place] [address]Fbdukmb Educationon 21-55-0481Fyxvjmp EducationPatient EducationNormalLakehealth Beachwood Medical CentereGFRon 29-45-0774lSKG80 mL/min/1.73 m2 Normal>=59L[facility] Beachwood Medical CenterComment on above:Performed By: #### [id number] #### [facility] [address], [place] [address]Munjyk Medicine Office/Clinic Noteon [phone] Medicine Office/Clinic NoteFasymmes hospital Medicine Office/Clinic Note Chief Complaint Follow up [...] Daily, # 30 tab(s), Refills(s) 0, Pharmacy: [facility] 185, cm, 08/15/24 8:05:00 EST, Height/Length Dosing, 119.1, kg, 08/15/24 8:05:00 EST, Weight Dosing 2. Diabetes (E11.9: Type 2 diabetes mellitus without complications) Uncontrolled Ordered: glipiZIDE, 10 mg = 1 tab(s), Oral, Daily, # 30 tab(s), Refills(s) 0, Pharmacy: [facility], 185, cm, 08/15/24 8:05:00 EST, Height/Length Dosing, 119.1, kg, 08/15/24 8:05:00 EST, WeightDosing glipiZIDE, 10 mg = 1 tab(s), Oral, Daily, # 90 tab(s), Refills(s) 0, Pharmacy: [facility], 185, cm, 08/15/24 8:05:00 EST, Height/Length Dosing, [...] Daily, # 30 tab(s), Refills(s) 0, Pharmacy: [facility] 185, cm, 08/15/24 8:05:00 EST, Height/Length Dosing, [...] Daily, # 30 tab(s), Refills(s) 0, Pharmacy: [facility], 185, cm, 08/15/24 8:05:00 EST, Height/Length Dosing, [...] Daily, # 30 tab(s), Refills(s) 0, Pharmacy: [facility], 185, cm, 08/15/24 8:05:00 EST, Height/Length Dosing, 119.1, kg, 08/15/24 8:05:00 EST, Weight Dosing Follow-up No qualifying data available Patient Education Managing Your Hypertension Hypertension, Adult, Uwao-gp-Bapl Problem List/Past Medical History Ongoing Abscess of left external cheek BMI 34.0-34.9,adult BMI 35.0-35.9,adult Depression Diabetes HTN (hypertension) Hyperlipidemia Obesity (BMI 30-39.9) Vapes nicotine containing substance Historical No qualifying data Procedure/Surgical History Anterior cruciate ligament of knee joint, Photorefractive keratectomy. Medications amLODIPine 10 mg Tab, 10 mg= 1 tab(s (more content not included)...[facility] InstituteComment on above:Result Comment: Electronically Signed By: PASQUALE STERN CNP\.br\Date and Time Signed: 08/15/24 08:53 ESTAmbulatory Visit Summaryon [id number] Visit SummaryAmbulatory Visit Summary SULTANA JOSHUA :1980 [...] Appointments Sunday 8:00 AM EST With: PASQUALE SETRN CNP Where: [facility] [address] [place] [phone]- You Need to Schedule the Following Appointments Follow Up with PASQUALE STERN CNP [facility] When: Within 4 weeks Comments: HTN Where: [address] [place] [phone] Business (1) You Need to Complete the Following HgbA1c, Blood, Routine collect, 07/10/24, Order for future visit, Lab Collect, Diabetes, Print Label By Order Location Medications What How Much When Why Instructions Changed enalapril (enalapril 10 mg Tab) 1 Tablets By Mouth Every day HTN (hypertension) Pickup at [facility] Changed enalapril (enalapril 20 mg Tab) [...] Tablets By Mouth Every day Pharmacy Information [facility]: [address] [place], [place] [id number] [phone] Allergies No Known Medication Allergies Problems Ongoing [...] you for choosing us for your care. [facility] Health InstituteCHEMISTRYOrdered By: Sakina Langley on 69-61-6595RdU5m (Bld) [Mass fraction]10.4 %High<=5.9%[facility] ChemAutoSS Family Medicine Office/Clinic Noteon [phone] Medicine Office/Clinic NoteFasymmes hospital Medicine Office/Clinic Note HPI Staff Sultana is [...] and daily exercise Patient declined referral to human services care specialist for assistance with his diet in regards to his diabetes Continue glipizide , MetFormin, & pioglitazone 45 Awaiting HgbA1C results Patient given name and number of eye doctor f/u TBD Ordered: HgbA1c Lab Specimen Collect [id number] 2. HTN (hypertension) (I10: Essential (primary) hypertension) Continue the enalapril 20 mg one tablet daily and the amlodipine 10 mg daily Add enalapril, 10 mg one tablet daily - may take with the 20 mg tablet Encourage low sodium diet & exercise f/u in 4 weeks Ordered: enalapril, 10 mg = 1 tab(s), Oral, Daily, # 30 tab(s), Refills(s) 0, Pharmacy: [facility], 185, cm, 07/10/24 7:24:00 EDT, Height/Length Dosing, 119.9, kg, 07/10/24 7:24:00 EDT, WeightDosing Lab Specimen Collect [id number] 3. Former smoker (Z87.891: Personal history of nicotine dependence) Encouraged to continue as a non-smoker Ordered: Lab Specimen Collect [id number] 4. BMI 35.0-35.9,adult (Z68.35: Body mass index [...] at subsequent visits. Ordered: Lab Specimen Collect [id number] 5. 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 Ordered: Lab Specimen Collect [id number] Follow-up With When Contact Information LEENA SALAMANCA, PASQUALE Avila, TORRES Within [address] [place] [phone] Business (1) Additional Instructions: HTN Patient [...] Tab, 5 mg= 1 (more content not included)...NormalLakehealth Beachwood Medical CenterComment on above:Result Comment: Electronically Signed By: PASQUALE STERN CNP\.br\Date and Time Signed: 07/10/24 10:58 TWRHavW5bzg 07-10-2024 HbA1c (Bld) [Mass fraction]10.4 %High<=5.9L[facility] Beachwood Medical CenterComment on above:Performed By: #### [id number] #### [facility] Laboratory [address], [place] [address]Oslncsrrem Visit Summaryon 77-01-4722Tyicetbwie Visit Summary Ambulatory Visit Summary SULTANA JOSHUA [...] AM EDT With: PASQUALE STERN CNP Where: [address] [address]- Medications What How Much When Why Instructions [...] you for choosing us for your care. [facility] Medicine Office/Clinic Noteon [id number] Medicine Office/Clinic NoteSaint Monica'S Home Medicine Office/Clinic Note Chief Complaint f/u to [...] Daily, # 90 tab(s), Refills(s) 0, Pharmacy: [facility] 185, cm, 05/15/24 7:36:00 EDT, Height/Length Dosing, 121.8, kg, 05/15/24 7:36:00 EDT, Weight Dosing glipiZIDE, 5 mg = 1 tab(s), Oral, Daily, # 90 tab(s), Refills(s) 0, Pharmacy: [facility] 185, cm, 04/09/24 7:36:00 EDT, Height/Length Dosing, [...] Daily, # 90 tab(s), Refills(s) 0, Pharmacy: [facility] 185, cm, 05/15/24 7:36:00 EDT, Height/Length Dosing, [...] Daily, # 90 tab(s), Refills(s) 0, Pharmacy: [facility] 185, cm, 05/15/24 7:36:00 EDT, Height/Length Dosing, [...] Daily, # 90 tab(s), Refills(s) 0, Pharmacy: [facility] 185, cm, 05/15/24 7:36:00 EDT, Height/Length Dosing, 121.8, kg, 05/15/24 7:36:00 EDT, Weight Dosing 5. Vapes nicotine containing substance (Z72.0: Tobacco use) Ordered: enalapril, 20 mg = 1 tab(s), Oral, (more content not included)...[facility] Health InstituteComment on above:Result Comment: Electronically Signed By: PASQUALE STERN CNP\.br\Date and Time Signed: 05/15/24 08:43 EDTProvider Letteron [id number] LetterProvider Letter May 15, 2024 SULTANA JOSHUA [address] [place] [phone] : 1980 To Whom It May Concern, Please excuse above patient from work, Sultana did have an appointment this morning 05-15-24 Date of Illness: From: _ To: _ May Return to Work On:05-15-24 Restrictions: _ Comments: _ Sincerely, Family Medicine [address] [address] OerjjeSkydgjSt. Mary[facility], [facility] CampusAmbulatory Visit Summaryon 97-35-3594Oczkkcwpho Visit SummaryAmbulatory Visit Summary SULTANA JOSHUA :1980 [...] AM EDT With: PASQUALE STERN CNP Where: [place] [phone] Medications What How Much When Why Instructions [...] you for choosing us for your care. [facility] Medicine Office/Clinic Noteon 38-20-1932Wkftsx Medicine Office/Clinic NoteSaint Monica'S Home Medicine Office/Clinic Note HPI Staff Sultana is [...] 23-valent vaccine 11/07/2021 Recorded 2023-10-26: VIS DATE: 07/16/2019[facility] InstituteComment on above:Result Comment: Electronically Signed By: PASQUALE STERN CNP\.br\Date and Time Signed: 04/09/24 13:10 EDTProvider Letteron [id number] LetterProvider Letter April 09, 2024 SULTANA JOSHUA [address] [place] [phone] : 1980 To Whom It May Concern, Please excuse above patient from work due to medical reasons Date of Illness: From: _04-08-24 To: _patient had appt. 04-09-24 @ 7:20 a.m. May Return to Work On:04-09-24 Restrictions: _NONE Comments: _ Sincerely, Family Medicine [address] [address] UsfbxwVffjzfRiverview Health InstituteAmbulatory Visit Summaryon 87-69-5266Zimfdegkug Visit SummaryAmbulatory Visit Summary SULTANA JOSHUA :1980 [...] AM EDT With: PASQUALE STERN CNP Where: [facility] Medicine Office/Clinic Noteon [phone] Medicine Office/Clinic NoteSaint Monica'S Home Medicine Office/Clinic Note HPI Staff Sultana is [...] out and will need some to drug parkin local 30 days to cover until mail [...] Daily, # 30 tab(s), Refills(s) 0, Pharmacy: [facility], 185, cm, 03/18/24 7:22:00 EDT, Height/Length Dosing, 119.9, kg, 03/18/24 7:22:00 EDT, WeightDosing omeprazole, 20 mg = 1 cap(s), Oral, Daily, # 30 cap(s), Refills(s) 0, Pharmacy: [facility], 185, cm, 03/18/24 7:22:00 EDT, Height/Length [...] breakfast, # 90 cap(s), Refills(s) 1, Pharmacy: [facility] 185, cm, 03/18/24 7:22:00 EDT, Height/Length Dosing, 119.9, kg, 03/18/24 7:22:00 EDT, Weight Dosing Follow-up With When Contact Information PASQUALE STERN CNP, FAM Within [address] [place] [phone] [facility] (1) Additional Instructions: HTN Patient Education Heart Attack, Gugt-tk-Pqjh Problem List/Past Medical History Ongoing Abscess of [...] vaccine 11/07/2021 Record (more content not included)... [facility] InstituteComment on above:Result Comment: Electronically Signed By: PASQUALE STERN CNP\.br\Date and Time Signed: 03/18/24 07:59 EDT Provider Letteron [phone] LetterProvider Letter March 18, 2024 SULTANA JOSHUA [address] [place] [phone] : 1980 To Whom It May Concern, Please excuse above patient from work, Sultana did have an appointment @ 7:20 a.m. this morning with Pasquale Stern NP. Date of Illness: From: _ To: _ May Return to Work On:03-18-24 Restrictions: _ Comments: _ Sincerely, Family Medicine [address] [address] DfejikIjqwnrSt. Mary's Medical Center, Iront[place] CampusCHEMISTRYOrdered By: SYSTEM SYSTEM on 03-45-0740Ebvdjin [Mass/Vol]4.5 g/dLNormal3.3 - 5.0 gm/dLRemisol Chem Albumin DL <= 20 mg/L (U) [Mass/Vol]91.8 mg/dLHigh0.0 - 1.9 mg/dLRemisol Chem Albumin/Globulin [Mass ratio]1.6 {ratio}Normal1.1 - 2.2Remisol ChemALP [Catalytic activity/Vol]70 [iU]/aYfrohw40 - 98 Int._Unit/LRemisol ChemALT No additional P-5'-P [Catalytic activity/Vol]97 [iU]/dHigh6 - 46 Int._Unit/LRemisol ChemAnion gap [Moles/Vol]13 mmol/LNormal6 - 16 mEq/LRemisol ChemAST [Catalytic activity/Vol]74 [iU]/dHigh5 - 43 Int._Unit/LRemisol ChemBilirubin [Mass/Vol]0.8 mg/dLNormal0.0 - 1.1 mg/dLRemisol ChemCalcium [Mass/Vol]9.3 mg/dLNormal8.9 - 11.1 mg/dLRemisol ChemChloride [Moles/Vol]100 mmol/GUfq137 - 111 mmol/LRemisol ChemCholesterol [Mass/Vol]168 mg/nIPhkika520 - 200 mg/dLRemisol ChemCholesterol in HDL [Mass/Vol]26 mg/dLInvalid Interpretation CodeRemisol ChemComment on above:Result Comment: '>= 60 LOW RISK' '<= 40 HIGH RISK'Cholesterol in LDL [Mass/Vol]89 mg/dLNormal<=129mg/dLRemisol ChemCholesterol in VLDL [Mass/Vol]Unable to Calculate mg/dLInvalid Interpretation Code7 - 40 mg/dLRemisol ChemComment on above:Result Comment: 'UNABLE TO REPORT. TRIG > 400 mg/dl'CO2 [Moles/Vol]25 mmol/RLeeqbx54 - 31 mmol/L Remisol ChemCreatinine [Mass/Vol]1.0 mg/dLNormal0.5 - 1.3 mg/dLRemisol ChemeGFR 95 mL/min/1.73 e4Kraqou>=59mL/min/1.73 w0Jlbguxv ChemGlobulin (S) [Mass/Vol]2.9 g/dLNormal1.4 - 4.0 gm/dLRemisol ChemGlucose [Mass/Vol]316 mg/cMTbco11 - 199 mg/dLRemisol ChemPotassium [Moles/Vol]4.3 mmol/LNormal3.5 - 5.3 mmol/LRemisol ChemProtein [Mass/Vol]7.4 g/dLNormal6.0 - 7.8 gm/dLRemisol Chem Protein/Creatinine (U) [Ratio]152.40 mg/gm CrNormal0.00 - 200.00 mg/gm CrRemisol ChemSodium [Moles/Vol]134 mmol/GMrm648 - 145 mmol/LRemisol ChemTriglyceride [Mass/Vol]466 mg/dLHigh<=149mg/dLRemisol ChemU Heowrmbsal84.2 mg/dLInvalid Interpretation CodeRemisol ChemUr Total Revnmaz116.2 mg/dLInvalid Interpretation CodeRemisol ChemUrea nitrogen [Mass/Vol]16 mg/dLNormal5 - 21 mg/dLRemisol Chem Urea nitrogen/Creatinine [Mass ratio]16 mg/vdRnzkft34 - 20Remisol ChemCHEMISTRY Ordered By: Chadwick Barrera on 35-12-9327RaX8h (Bld) [Mass fraction]11.5 %High <=5.9%[facility] ChemAutoSSCMPon 57-47-1357Qnqsijs [Mass/Vol]4.5 g/dLNormal3.3-5.0 [facility] Medical CenterComment on above:Performed By: #### [id number] #### [facility] Laboratory [address], [place] [address]Cpgnnqk/Globulin (S) [Mass conc ratio]1.9Ywynsy8.1-2.2Fisher St. Agnes HospitalComment on above:Performed By: #### [id number] #### [facility] [address], [place] [address]KVY [Catalytic activity/Vol]70 Int._Unit/CLogxom47-17ThxttvLakehealth Beachwood Medical CenterComment on above:Performed By: #### [id number] #### [facility] [address], [place] [address]VAL No additional P-5'-P [Catalytic activity/Vol]97 Int._Unit/L High6-46L[facility] Beachwood Medical CenterComment on above:Performed By: #### [id number] #### [facility] [address], [place] [address]MJN [Catalytic activity/Vol]74 Int._Unit/LHigh5-43L[facility] Medical CenterComment on above:Performed By: #### [id number] #### [facility] [address], [place] [address]Rbzzzldgs [Mass/Vol]0.8 mg/dLNormal0.0-1.1FCleveland Clinic Euclid HospitalComment on above:Performed By: #### [id number] #### [facility] [address], [place] [address]Thhpntfz (S) [Mass/Vol]2.9 g/dLNormal1.4-4.0L[facility] Medical CenterComment on above:Performed By: #### [id number] #### [facility] [address], [place] [address]Teefphx [Mass/Vol]7.4 g/dLNormal6.0-7.8L[facility] Medical CenterComment on above:Performed By: #### [id number] #### [facility] [address], [place] [address]Eqbot gap [Moles/Vol]13 mmol/LNormal6-16L[facility] Medical CenterComment on above:Performed By: #### [id number] #### [facility] [address], [place] [address]Inirxwq [Mass/Vol]9.3 mg/dLNormal8.9-11.1FCleveland Clinic Euclid HospitalComment on above:Performed By: #### [id number] #### [facility] [address], [place] [address]Dpyyzhlh [Moles/Vol]100 mmol/NOuk794-737HiyuwaLakehealth Beachwood Medical CenterComment on above:Performed By: #### [id number] #### [facility] [address], [place] [address]VG6 [Moles/Vol]25 mmol/PJplnjp55-30SutratLakehealth Beachwood Medical Center Comment on above:Performed By: #### [id number] #### [facility] [address], [place] [address]Sbpoyutqqg [Mass/Vol]1.0 mg/dLNormal0.5-1.3FCleveland Clinic Euclid HospitalComment on above:Performed By: #### [id number] #### [facility] [address], [place] [address]Cukshjs [Mass/Vol]316 mg/oUFmzl28-293RyvcxxLakehealth Beachwood Medical CenterComment on above:Performed By: #### [id number] #### [facility] [address], [place] [address]Yiuiwkjqp [Moles/Vol]4.3 mmol/LNormal3.5-5.3FCleveland Clinic Euclid HospitalComment on above:Performed By: #### [id number] #### [facility] [address], [place] [address]Uxfqjv [Moles/Vol]134 mmol/GWco606-909YhgysvLakehealth Beachwood Medical CenterComment on above:Performed By: #### [id number] #### [facility] [address], [place] [address]Gbks nitrogen [Mass/Vol]16 mg/dLNormal5-21L[facility] Medical CenterComment on above:Performed By: #### [id number] #### [facility] [address], [place] [address]Tujy nitrogen/Creatinine [Mass ratio]16 No RqzlwGdmbkc86-09 [facility] CenterComment on above:Performed By: #### [id number] #### [facility] [address], [place] [address]XxlY2qxf 75-16-16[address]MsU0k (Bld) [Mass fraction]11.5 %High<=5.9 [facility] Medical CenterComment on above:Performed By: #### [id number] #### [facility] [address], [place] [address]Oyykj Panelon 09-92-3419Unojzrwovks in VLDL [Mass/Vol]UTC Abnormal7-40L[facility] Medical CenterComment on above:Result Comment: 'UNABLE TO REPORT. TRIG > 400 mg/dl' Result verified by Discern Rule. Performed result UT (Unable to Calculate) was sent as an Alpha code due the inability to calculate a valid numeric value. Performed By: #### [id number] #### [facility] [address], [place] [address]Dvlyrmphapv [Mass/Vol]168 mg/zIIpomaa315-131QhwesyLakehealth Beachwood Medical CenterComment on above:Performed By: #### [id number] #### [facility] [address], [place] [address]Xushokynubu in HDL [Mass/Vol]26 mg/dLInvalid Interpretation CodeLakehealth Beachwood Medical CenterComment on above:Result Comment: '>= 60 LOW RISK' '<= 40 HIGH RISK'Performed By: #### [id number] #### [facility] [address], [place] [address]Wblbnvfbiry in LDL [Mass/Vol]89 mg/dLNormal<=129[facility] Medical CenterComment on above:Performed By: #### [id number] #### [facility] [address], [place] [address]Vlfxnwrutwcq [Mass/Vol]466 mg/dLHigh<=149L[facility] Medical CenterComment on above:Performed By: #### [id number] #### [facility] [address], [place] [address]I Microalbon 24-06-2739Kjyokvl DL <= 20 mg/L (U) [Mass/Vol]91.8 mg/dLHigh0.0-1.9[facility] Medical CenterComment on above:Performed By: #### [id number] #### [facility] [address], [place] [address]K Protein/Creat Ratioon 96-33-0398Bykyupc/Creatinine (U) [Ratio]152.40 mg/gm CrNormal.00-200.00L[facility] Medical CenterComment on above:Performed By: #### [id number] #### [facility] [address], [place] [address] Wxudnqtjhr14.2 mg/dLInvalid Interpretation [facility]itan HospitalComment on above:Performed By: #### [id number] #### [facility] [address], [place] [address]Vf Total Erndejv177.2 mg/dLInvalid Interpretation [facility] Samaritan HospitalComment on above:Performed By: #### [id number] #### [facility] [address], [place] [address]yZUYwt 24-08-0536hZXV51 mL/min/1.73 a3Wrukch>=59L[facility] Medical CenterComment on above:Order Comment: Order added by Discern Expert. Performed By: #### [id number] #### [facility] [address], [place] [address]Orovibyefs Visit Summaryon 74-23-4303Kqztxknfwf Visit Summary SULTANA JOSHUA :1980 Visit Date:02/19/2024 [...] Appointments 2023 7:00 AM EDT With: Where: [facility] BellevueInvalid Interpretation [address] [place] [address]- \.br\ You Need to Schedule the Following Appointments\.br\ Follow Up with PASQUALE STERN CNP, FAM When: Within 4 weeks\.br\ Comments:\.br\ HTN\.br\ Where:\.br\ [address] [facility]\.br\ [place] [address]\.br\ Business ( 1)\.br\ \.br\ You Need to Complete the Following\.br\ Comprehensive Metabolic Panel, Blood, Routinecollect, 02/19/24, Order for future visit, Lab Collect, DiabetesPremier Health [facility] Office/Clinic Noteon 23-73-0875Sqwdpe Medicine Office/Clinic NoteChief Complaint Patient in office [...] Daily, # 30 tab(s), Refills(s) 0, Pharmacy: [facility], 185, cm, 02/19/24 7:35:00 EDT, Height/Length Dosing, 119.7, kg, 02/19/24 7:35:00 EDT, Weight Dosing Comprehensive Metabolic Panel Lipid Panel 3. Yeast infection (B37.9: Candidiasis, unspecified) Ordered: fluconazole, 100 mg = 1 tab(s), Oral, Daily, X 7 day(s), # 7 tab(s), Refills(s) 0, Pharmacy: [facility], 185, cm, 02/19/24 7:35:00 EDT, Height/Length Dosing, 119.7, kg, 02/19/24 7:35:00 EDT, Weight Dosing Orders: pioglitazone, 45 mg = 1 tab(s), Oral, Daily, # 90 tab(s), Refills(s) 1, Pharmacy: [facility], 185, cm, 02/19/24 7:35:00 EDT, Height/Length Dosing, 119.7, kg, 02/19/24 7:35:00 EDT, Weight Dosing sitagliptin, 100 mg = 1 tab(s), Oral, Daily, # 90 tab(s), Refills(s) 1, Pharmacy: [facility], 185, cm, 02/19/24 7:35:00 EDT, Height/Length Dosing, 119.7, kg, 02/19/24 7:35:00 EDT, Weight Dosing Total time spent preparing the chart, conducting of the encounter with the patient and family and time spent documenting, reviewing, and ordering tests was 30 minutes. Follow-up With When Contact Information PASQUALE STERN CNP, FAM Within [address] [place] [phone] [facility] (1) Additional Instructions: HTN Patient Education Genital Yeast Infection, Male Hypertension, Adult, Sius-ph-Mmwc Problem List/Past Medical History Ongoing Abscess of [...] Liquor, 1-2 times per month, 10/26/2023 [facility] (more content not included)...[facility] InstituteComment on above:Result Comment: Electronically Signed By: PASQUALE [...] Keep all follow-up visits. Medicines ? Take birj-quo-akaakib and prescription medicines only as told by [...] blood. ? For m (more content not included)...[facility] InstituteProvider Letteron [phone] Letter February 19, 2024 SULTANA JOSHUA [address] [phone] : 1980 To Whom It May Concern, Please excuse above patient from work Sultana does have appt. @ 7:00 a.m. on February Date of Illness: From: _ To: _ May Return to Work On:02-21-24 Restrictions: _NONE Comments: _ Sincerely, [place] [address] VbuxzjPuattnPremier Health Atrium Medical CenterProvider Letter February 19, 2024 SULTANA JOSHUA [address] [phone] : 1980 To Whom It May Concern, Please excuse above patient from work, Sultana had an appt this morning at 7:40 a.m. Date of Illness: From: _ To: _ May Return to Work On:02-19-24 Restrictions: _NONE Comments: _ Sincerely, [place] [id number] EkpfvwInldzoRiverview Health InstituteAmbulatory Visit Summaryon [id number] Visit Summary SULTANA JOSHUA :1980 Visit Date:11/30/2023 [...] you for choosing us for your care. [facility] InstituteGeneral Surgery Office/Clinic Noteon [id number] Surgery Office/Clinic NoteChief Complaint 1 month follow [...] with voice recognition artificial intelligence software, specifically [employer], [employer] and or [employer] Substitutions may have occurred voice recognition and artificial intelligence software. Documentation services were performed after patient or guardian consented to allow ideaForge to record this visit. ABBY market development specialist and provider reviewed before signing. ABBY: [...] pneumococcal 23-valent vaccine 11/07/2021 Recorded 2023-10-26: DATE: 07/16/2019[facility] InstituteComment on above:Result Comment: Electronically Signed By: Rajat [...] with voice recognition artificial intelligence software, specifically [employer], [employer] and or [employer] Substitutions may have occurred voice recognition and artificial intelligence software. Documentation services were performed after patient or guardian consented to allow [employer] to record this visit. ABBY market development specialist and provider reviewed before signing. ABBY: [...] 23-valent vaccine 11/07/2021 Recorded 2023-10-26: VIS DATE: 07/16/2019[facility] InstituteComment on above:Result Comment: Electronically Signed By: Rajat Zeng MD\.br\Date and Time Signed: 11/05/23 15:39 EST\.br\Electronically Co-Signed By: Gillian Hernandez\.br\Date and Time Co-Signed: 11/02/23 09:39 ESTAmbulatory Visit Summaryon [id number] Visit Summary SULTANA JOSHUA :1980 Visit Date:11/02/2023 [...] AM EDT With: Rajat Zeng MD Where: [facility] HospitalProvider Letteron [phone] Letter November 02, 2023 SULTANA JOSHUA [address] [place] [phone] : 1980 To Whom It May Concern, Please excuse above patient from work. Date of Illness: From: 11/02/23 To: 11/02/23 May Return to Work On: 11/02/23 Restrictions: none Sincerely, Fransisco Langston General Surgery [phone] Titus Medical CenterED Note-Physicianon [id number] Note-[id number]#1.00TIFMercy Health St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 male here for abscess on neck Patient was seen at [facility] on 10/21/2023 Bedside US done showing [...] with voice recognition artificial intelligence software, specifically [employer], [employer]ius and or [employer] Substitutions may have occurred due to the inherent limitations of voice recognition and artificial intelligence software. Documentation services were performed after patient or guardian consented to allow idea[employer]ge to record this visit. ABBY market development specialist and provider reviewed before signing. ABBY: Definiens Follow-up No qualifying data available Patient Education [...] History Diabetes mellitus type (more content not included)...[facility] InstituteComment on above:Result Comment: Electronically Signed By: Rajat Zeng MD\.br\Date and Time Signed: 10/29/23 08:41 EST\.br\Electronically Co- Signed By: Giovanna Sewell\.br\Date and Time Co-Signed: 10/26/23 11:30 EST Ambulatory Visit Summaryon [id number] Visit Summary SULTANA JOSHUA :1980 Visit Date:10/26/2023 [...] EST With: Azucena ARRIAGA, Rajat Hurd Where: [facility] General Surgery [facility] Medicine Office/Clinic Noteon [id number] Medicine Office/Clinic NoteChief Complaint ED follow up and Establish care HPI Staff Establish Care: History: Any previous diagnosis: DM, HTN History of seeing any specialist: n/a When was your last doctors visit: unknown Last provider: Monica Durán Any recent labs: Last August in [facility] UTD: Colonoscopy: no Acute: Current issues/complaints: ER followup: Hospital: [facility] Visit date:10/20/2023 Symptoms the patient presented [...] & Hyperlipidemia. He was seen at the [facility] Edfor the abscesses on the left side of his neck on 10/20/2023. He reports they gave him two oral ATB's and mupirocin topical for the area. He states they wanted him to make an appointment with Dr. Orourke, general surgery in [place] but told him to come to a [...] compresses to the area Awaiting report from [facility] ED Appointment today at 10 AM with [place] [facility] [place]dered[place] [facility] Internal Ambulatory Referral 2. Encounter to establish [...] CNP, FAM Within 2 to [address] [place] [address] 44 (more content not included)...[facility] InstituteComment on above:Result Comment: Electronically Signed By: PASQUALE STERN CNP\.br\Date and Time Signed: 10/26/23 10:55 ESTPatient Educationon [id number] EducationGastroenterology Obesity, Adult Obesity is the condition [...] food choices, such as grocery stores and mChron. What are the signs or symptoms? The [...] much you have to (more content not included)...[facility] EducationInfectious Disease Skin Abscess A skin abscess [...] these instructions at home: Medicines ? Take pqjj-qmt-ufledoz and prescription medicines only as told by [...] cannot use soap and water, use hand placer miner. ? Check your abscess every day for signs that the infection is getting worse. Check for: ? More redness, swelling, or pain. ? More fluid or blood. ? Warmth. ? More pus or a bad smell. General instructions ? To avoid spreading the infection: ? Do not share personal care items, towels, or hot tubs with others. ? Avoid making leox-fv-exhk contact with other people. ? Keep all [...] provider. Document Revised: 12/07/2022 Document Reviewed: 06/12/2022 [employer] Patient Education ? 2022 [employer].[facility] Provider Letteron [phone] Letter October 26, 2023 SULTANA JOSHUA [address] [place] [phone] : 1980 To Whom It May Concern, Please excuse above patient from work. Date of Illness: From: 10/26/2023 To: 10/28/2023 May Return to Work On:10/29/23 Restrictions: _ Comments: _ Sincerely, Rajat Zeng MD [facility] General SurgeryRiverview Health InstituteBasic Metabolic Profon 31-90-3915Nobag gap [Moles/Vol]11 mmol/LNormal9-17Mer[facility] Memorial HospitalComment on above:Performed By: #### ESTUARDO BMP, MG #### [facility] [address] [place] [address] [place] [address] Tank Maker Wood: Norm Frank MDBUN/CRE Mclsy11Gmtnvm3-38Ugwgr [facility] Comment on above:Performed By: #### ESTUARDO BMP, MG #### [facility] [address] [place] [address] Tank Maker Wood: SUSANA Fairchildalcium [Mass/Vol]9.9 mg/dLNormal8.6-10.4Mer[facility] Memorial HospitalComment on above:Performed By: #### CDP BMP, MG #### [address] [place] [address] Tank Maker Wood: SUSANA Fairchildhloride [Moles/Vol]106 mmol/NWwnekk39-461RvkbtMercy Memorial HospitalComment on above:Performed By: #### CDP, BMP, MG #### [address] [place] [address] Tank Maker Wood: Norm Frank MDCO2 [Moles/Vol]24 mmol/MDsxsyt75-75MlaptMercy Memorial HospitalComment on above:Performed By: #### CDP, BMP, MG #### [address] [place], [place] [id number] Tank Maker Wood: SUSANA Fairchildreatinine [Mass/Vol]0.9 mg/dLNormal0.7-1.2MUniversity Hospitals Elyria Medical CenterComment on above:Performed By: #### ESTUARDO BMP, MG #### [address] [place] [address] Tank Maker Wood: Norm Frank MDGFR/1.73 sq M.predicted among non-blacks MDRD (S/P/Bld) [Vol rate/Area]mL/min/{1.73_m2}Normal>60Mer[facility] Memorial HospitalComment on above:Result Comment: These results are [...] secretion.Performed By: #### CDP, BMP, MG #### [address] [place] [address] Tank Maker Wood: Norm Frank MDGlucose [Mass/Vol]146 mg/mJAgfa88-46ZorxrUniversity Hospitals Elyria Medical CenterComment on above:Performed By: #### CDP, BMP, MG #### [address] [place], [facility]83 Tank Maker Wood: CAIO Fairchildotassium [Moles/Vol]4.4 mmol/LNormal3.7-5.3Mer[facility] Birmingham HospitalComment on above:Performed By: #### CDP, BMP, MG #### [address] [place], [place] [address] Tank Maker Wood: Norm Frank MDSodium [Moles/Vol]141 mmol/ANxtkwa275-891Blkou [facility] HospitalComment on above:Performed By: #### CDP, BMP, MG #### [address] [place], [place] [address] Tank Maker Wood: Norm Frank MDUrea nitrogen [Mass/Vol]13 mg/dLNormal6-20MerCoshocton Regional Medical Center HospitalComment on above:Performed By: #### CDP, BMP, MG #### [address] [place], [facility]83 Tank Maker Wood: TRISTA Fairchild with Diffon [id number]. Basophil0.04 k/uL Normal0.00-0.20MerCoshocton Regional Medical Center HospitalComment on above:Performed By: #### CDP, BMP, MG #### [address] [place], [place] [address] Tank Maker Wood: Sunny Fairchild.Imm.Granulocyte<0.92Rbhzjk1.00-0.30MerCoshocton Regional Medical Center HospitalComment on above:Performed By: #### CDP, BMP, MG #### [address] [place] [address] Tank Maker Wood: Sunny Fairchild.Neutrophil (Seg)2.92 k/uLNormal1.50-8.10MerCoshocton Regional Medical Center HospitalComment on above:Performed By: #### CDP, BMP, MG #### [address] [place], [place] [address] Tank Maker Wood: Norm Frank MDBasophils/100 WBC (Bld)1 %Normal0-2Mer[facility] Birmingham HospitalComment on above:Performed By: #### CDP, BMP, MG #### [address] [place] [address] Tank Maker Wood: Norm Frank MDEosinophils (Bld) [#/Vol]0.26 10*3/uLNormal 0.00-0.44MerCoshocton Regional Medical Center HospitalComment on above:Performed By: #### CDP, BMP, MG #### [address] [place], [place] [address] Tank Maker Wood: Norm Frank MDEosinophils/100 WBC (Bld)4 %Normal1-4MerCoshocton Regional Medical Center HospitalComment on above:Performed By: #### CDP, BMP, MG #### [address] [place], [place] [address] Tank Maker Wood: Norm Frank MDErythrocyte distribution width (RBC) [Ratio]12.6 % Ivtcod94.8-14.4[facility] HospitalComment on above:Performed By: #### CDP, BMP, MG #### [address] [place], [place] [address] Tank Maker Wood: Norm Frank MDHematocrit (Bld) [Volume fraction]45.5 %Normal 40.7-50.3Mer[facility] Birmingham HospitalComment on above:Performed By: #### CDP, BMP, MG #### [address] [place] [id number] Tank Maker Wood: Norm Frank MDHemoglobin (Bld) [Mass/Vol]16.4 g/dLNormal 13.0-17.0MerCoshocton Regional Medical Center HospitalComment on above:Performed By: #### CDP, BMP, MG #### [address] [place], [place] [address]83 Tank Maker Wood: Boone Fairchildture granulocytes/100 WBC (Bld)0 %Tlmrxn4DphjuMercy Memorial HospitalComment on above:Performed By: #### CDP, BMP, MG #### [address] [place], [facility]83 Tank Maker Wood: Norm Frank MDLymphocytes (Bld) [#/Vol]2.51 10*3/uLNormal 1.10-3.70Mer[facility] Memorial HospitalComment on above:Performed By: #### CDP, BMP, MG #### [address] [place], [facility]83 Tank Maker Wood: Izzy Fairchildmphocytes/100 WBC (Bld)39 %Kjaxom97-27CzwshMercy Memorial HospitalComment on above:Performed By: #### CDP, BMP, MG #### [address] [place], [facility]83 Tank Maker Wood: ISELA Fairchild (RBC) [Entitic mass]34.5 ybJaeo95.2-33.5Mer[facility] Memorial HospitalComment on above:Performed By: #### CDP, BMP, MG #### [address] [place], [facility]83 Tank Maker Wood: ISELA FairchildC (RBC) [Mass/Vol]36.0 g/iQGlow98.4-34.8[facility] Memorial HospitalComment on above:Performed By: #### CDP, BMP, MG #### [address] [place] [address] Tank Maker Wood: MARIO FairchildCV (RBC) [Entitic vol]95.6 kSLrwluo11.6-102.9 [facility] HospitalComment on above:Performed By: #### CDP, BMP, MG #### [facility] [address] [place], [place] [address] Tank Maker Wood: MARIO Fairchildonocytes (Bld) [#/Vol]0.68 10*3/uLNormal0.10-1.20 [facility] HospitalComment on above:Performed By: #### CDP, BMP, MG #### [address] [place] [address] Tank Maker Wood: MARIO Fairchildonocytes/100 WBC (Bld)11 %Normal3-12Mer[facility] Memorial HospitalComment on above:Performed By: #### CDP, BMP, MG #### [address] [place], [place] 65[address]283 Tank Maker Wood: Norm Frank MDNeutrophil (Seg)45 %Pqyhdq70-65Xfvhq [facility] HospitalComment on above:Performed By: #### CDP, BMP, MG #### [address] [place], [place] 5033[address] Tank Maker Wood: Norm Frank MDNRBC Automated0.0 per 100 WBCNormal0.0Mer[facility] Memorial HospitalComment on above:Performed By: #### CDP, BMP, MG #### [address] [place], [place] [address]83 Tank Maker Wood: Marisol Fairchild mean volume (Bld) [Entitic vol]9.8 fL Normal8.1-13.5Mer[facility] Memorial HospitalComment on above:Performed By: #### CDP, BMP, MG #### [address] [place], [place] 25[address]183 Tank Maker Wood: CAIO Fairchildlatelets (Bld) [#/Vol]210 10*3/zUAhxsmb747-581 [facility] HospitalComment on above:Performed By: #### CDP, BMP, MG #### [address] [place], [place] 7674183 Tank Maker Wood: MICA Fairchild (Bld) [#/Vol]4.76 10*6/uLNormal4.21-5.77Mercy [facility]/John Dempsey HospitalComment on above:Performed By: #### ESTUARDO BMP, MG #### [facility] [address] [place], [place] [address] Tank Maker Wood: PARISH Fairchild (d) [#/Vol]6.4 10*3/uLNormal3.5-11.3[facility] HospitalComment on above:Performed By: #### BELLA MARTE, MG #### [facility] [address] [place], [place] [address]83 Tank Maker Wood: Norm Frank MDCT HEAD WO CONTRASTon 36-19-8916MK HEAD WO CONTRASTEXAMINATION: CT OF THE HEAD [...] Signed by: Dakota Bennett MD 06/22/23 Final resultNormalMerWaterbury HospitalCTA HEAD NECK W CONTRASTon 75-27-5620BIB HEAD NECK W CONTRASTEXAMINATION: CTA OF THE [...] by: Virgil Steward MD 06/22/23 Final resultNormalMercy [facility] Of [facility] Center/John Dempsey HospitalMagnesiumon 39-60-7286Lkssdnabv [Mass/Vol]1.8 mg/dLNormal1.6-2.6[facility]/John Dempsey HospitalComment on above:Performed By: #### BELLA MARTE MG #### [facility] [address] [place] [address] Tank Maker Wood: Norm Frank MDHemoglobin A1Con 51-91-5986Vnscshm [Mass/Vol]146 mg/dLNormMcKitrick HospitalComment on above:Result Comment: The ADA and AACC recommend providing the estimated average glucose result to permit better patient understanding of their HBA1c result.Performed By: #### CP, CBC #### [facility] [address] [place] [address] Dr. [place], [place] [phone] Tank Maker Wood: Norm Frank MD #### BVTEST, GLYHGB #### [facility] [employer] [address] [place], [place] [address] Tank Maker Wood: Trenton Carbajal MDHbA1c (Bld) [Mass fraction]6.7 %High4.0-6.0Mercy Memorial HospitalComment on above:Performed By: #### CP, CBC #### [facility] [address] [place] [address] Dr[place], [place] [address] Tank Maker Wood: Norm Frank MD #### BVTEST, GLYHGB #### [facility] [employer] [address] [place], [place] [phone] Tank Maker Wood: Trenton Carbajal MDLipid Panelon 94-16-6343Qnehbdlmxcq [Mass/Vol] 185 mg/dLNINF - 200 mg/dLBON SUMMA HEALTH BARBERTON CAMPUSComment on above: Cholesterol Guidelines: <200 Desirable 200-240 Borderline >240 Undesirable Cholesterol in HDL [Mass/Vol]37 mg/dLLow40 - PINF mg/dLBON [facility] Comment on above: HDL Guidelines: <40 Undesirable 40-59 Borderline >59 Desirable Cholesterol in LDL [Mass/Vol]119 mg/dL0 - 130 mg/dLBON [facility] Comment on above: LDL Guidelines: <100 Desirable 100-129 Near to/above Desirable 130-159 Borderline >159 Undesirable Direct (measured) LDL and calculated LDL are not interchangeable tests. Cholesterol.total/Cholesterol in HDL [Mass ratio]5 {ratio}HighNINF - 5BON [facility]BERTON CAMPUSInterpretation and review of laboratory resultsAbnormalBON SUM[facility] BARBERTON CAMPUSTriglyceride [Mass/Vol]144 mg/dLNINF - 150 mg/dLBON SUMMA HEALTH BARBERTON CAMPUSComment on above: Triglyceride Guidelines: <150 Desirable 150-199 Borderline 200-499 High >499 Very high Based on AHA Guidelines for fasting triglyceride, June 2012. [facility] MEDICAL CENTERLipid Profileon 53-49-7843Lirsltvzumo [Mass/Vol]185 mg/dLNormal<200Mer[facility] HospitalComment on above:Result Comment: Cholesterol Guidelines: <200 Desirable 200-240 Borderline >240 UndesirablePerformed By: #### LIPR #### [facility] [address] [place] [address] Tank Maker Wood: SUSANA Lopezholesterol in HDL [Mass/Vol]37 mg/dLLow>40Mercy [facility] HospitalComment on above:Result Comment: HDL Guidelines: <40 Undesirable 40-59 Borderline >59 DesirablePerformed By: #### LIPR #### [facility] [employer] [address] [place] [address] Tank Maker Wood: SUSANA Lopezholesterol in LDL [Mass/Vol]119 mg/dLNormal 0-130Mer[facility] HospitalComment on above:Result Comment: LDL Guidelines: <100 Desirable 100-129 Near to/above Desirable 130-159 Borderline >159 Undesirable Direct (measured) LDL and calculated LDL are not interchangeable tests.Performed By: #### LIPR #### [facility] [address] [place] [address] Tank Maker Wood: Parish Lopez.total/Cholesterol in HDL [Mass ratio]5.0 {ratio}High<5[facility] HospitalComment on above:Performed By: #### LIPR #### [facility] [address] [place] [address] Tank Maker Wood: Trenton Carbajal MDTriglyceride [Mass/Vol]144 mg/dLNormal<150Mer[facility] HospitalComment on above:Result Comment: Triglyceride Guidelines: <150 Desirable 150-199 Borderline 200-499 High >499 Very high Based on AHA Guidelines for fasting triglyceride, June 2012.Performed By: #### LIPR #### [facility] [address] [place] [phone] Tank Maker Wood: Trenton Carbajal MDTestosterone Free Bio Totalon 54-77-6504Vgf Hormone Dccaboz77 nmol/L11 - 80 nmol/LBON SUMMA [facility]ALTH BARBERTON CAMPUSTestosterone [Mass/Vol]752 ng/dL220 - 1000 ng/dLBON [facility] CAMPUSTestosterone, Hrcpxdvctlwn397.5 ng/dL130 - 680 ng/dLBON SUM[facility]ALTH BARBERTON CAMPUSComaspirus keweenaw hospital on above: The concentration of bioavailable testosterone is derived from a mathematical expression based on the constant for the binding of testosterone to albumin and/or sex hormone binding globulin. Testosterone, Bsdj862.3 pg/mL47 - 244 pg/mLBON SUMMA HEALTH BARBERTON CAMPUSComaspirus keweenaw hospital on above:The concentration of free testosterone is derived from a mathematical expression based on the constant for the binding of testosterone to albumin and/or sex hormone binding globulin. BON [facility] CAMPUSTestosterone,Bioavailon 75-30-7587Yel Horm Bind Glob56 nmol/PMhvkrc37-94TlfdlMercy Memorial HospitalComment on above:Performed By: #### SANJUANITA, CBC #### [address] [place] [address] Tank Maker Wood: Norm Frank MD #### BVTEST, GLYHGB #### [facility] [employer] [facility] [place], [place] 1112808 Tank Maker Wood: Trenton Carbajal MDTest,Xnwbibfq251.5 ng/mHLcycjf895-406GpgtoMercy Memorial HospitalComaspirus keweenaw hospital on above:Result Comment: The concentration of bioavailable testosterone is derived from a mathematical expression based on the constant for the binding of testosterone to albumin and/or sex hormone binding globulin.Performed By: #### SANJUANITA, CBC #### [address] [place] [address] Tank Maker Wood: Norm Frank MD #### BVTEST, GLYHGB #### [facility] [employer] [address] [place] [address] Tank Maker Wood: Trenton Carbajal MDTestosterone [Mass/Vol]752 ng/wBXjhbju954-9788 [facility] HospitalComment on above:Performed By: #### CP, CBC #### [address] [place] [address] Tank Maker Wood: Norm Frank MD #### BVTEST, GLYHGB #### [address] [id number] Tank Maker Wood: Trenton Carbajal MDTestosterone,Kkoh353.3 pg/jJEerkbw03-126UwkagMercy Memorial HospitalComment on above:Result Comment: The concentration of free testosterone is derived from a mathematical expression based on the constant for the binding of testosterone to albumin and/or sex hormone binding globulin.Performed By: #### SANJUANITA, CBC #### [address] [place], [place] 155[address]83 Tank Maker Wood: Norm Frank MD #### BVTEST, GLYHGB #### [address] [id number] Tank Maker Wood: SUSANA LopezHeartland Behavioral Health Services 84-38-0013Xcgdyocwuem distribution width (RBC) [Ratio]12.9 %Tjgimf56.8-14.4Mer[facility] Memorial HospitalComment on above: Performed By: #### SANJUANITA, CBC #### [address] [place], [place] 1201483 Tank Maker Wood: Norm Frank MD #### BVTEST, GLYHGB #### [address] [address] Tank Maker Wood: Trenton Carbajal MDHematocrit (Bld) [Volume fraction]44.0 %Normal 40.7-50.3MUniversity Hospitals Elyria Medical CenterComment on above:Performed By: #### SANJUANITA, CBC #### [address] [place], [place] 430[address]83 Tank Maker Wood: Norm Frank MD #### BVTEST, GLYHGB #### [address] [id number] Tank Maker Wood: Trenton Carbajal MDHemoglobin (Bld) [Mass/Vol]15.7 g/dLNormal 13.0-17.0Mer[facility] Memorial HospitalComment on above:Performed By: #### CP, CBC #### [address] [place] [address] Tank Maker Wood: Norm Frank MD #### BVTEST, GLYHGB #### [place] [address] [place], [place] 9458[address] Tank Maker Wood: MARIO LopezCH (RBC) [Entitic mass]33.9 pdVqdr96.2-33.5 [facility] HospitalComment on above:Performed By: #### CP, CBC #### [address] [place] [address] Tank Maker Wood: Norm Frank MD #### BVTEST, GLYHGB #### [place] [address] [place] [address] Tank Maker Wood: MARIO LopezCHC (RBC) [Mass/Vol]35.7 g/mFBwsp29.4-34.8[facility] HospitalComment on above:Performed By: #### CP, CBC #### [address] [place] [phone] Tank Maker Wood: Norm Frank MD #### BVTEST, GLYHGB #### [place] [address] [place] [address] Tank Maker Wood: MARIO LopezCV (RBC) [Entitic vol]95.0 rCFiysnm22.6-102.9 [facility] HospitalComment on above:Performed By: #### CP, CBC #### [address] [place] [address] Tank Maker Wood: Norm Frank MD #### BVTEST, GLYHGB #### [address] [address] [employer] Maker Wood: Trenton Carbajal MDNRBC Automated0.0 per 100 WBCNormal0.0[facility] on above:Performed By: #### CP, CBC #### [address] [place] [phone] ( Tank Maker Wood: Norm Frank MD #### BVTEST, GLYHGB #### [address] [address] [employer] Maker Wood: Marisol Lopez mean volume (Bld) [Entitic vol]10.6 fL Normal8.1-13.5Mer[facility] Memorial HospitalComaspirus keweenaw hospital on above:Performed By: #### SANJUANITA, CBC #### [address] [place] [address] Tank Maker Wood: Norm Frank MD #### BVTEST, GLYHGB #### [address] [address] [employer] Maker Wood: Christiano Lopez (Bld) [#/Vol]187 10*3/dJCafyqo899-416 [facility] HospitalComaspirus keweenaw hospital on above:Performed By: #### CP, CBC #### [address] [place] [address] Tank Maker Wood: Norm Frank MD #### BVTEST, GLYHGB #### [address] [address] [employer] Maker [employer]: MICA Lopez (Bld) [#/Vol]4.63 10*6/uLNormal4.21-5.77 [facility] on above:Performed By: #### CP, CBC #### [address] [place] [id number] Tank Maker Wood: Norm Frank MD #### BVTEST, GLYHGB #### [facility] [employer] [address] [place], [place] [phone] Tank Maker Wood: Trenton Carbajal MDWBC (Bld) [#/Vol]5.3 10*3/uLNormal3.5-11.3MUniversity Hospitals Elyria Medical CenterComment on above:Performed By: #### CP, CBC #### [facility] [address] [place] [address] [employer] Maker [employer]: Norm Frank MD #### BVTEST, GLYHGB #### [facility] [address] [place] [address] Tank Maker Wood: Trenton Carbajal MDHematocrit (Bld) [Volume fraction]44.0 %40.7 - 50.3 %[facility] MEDICAL CENTERHemoglobin (Bld) [Mass/Vol]15.7 g/dL13.0 - 17.0 g/dLBON SUMMA HEALTH BARBERTON CAMPUSInterpretation and review of laboratory results AbnormalHOSPITAL CORPORATION OF AMERICAH (RBC) [Entitic mass]33.9 pzLbhn61.2 - 33.5 pgHOSPITAL CORPORATION OF AMERICAHC (RBC) [Mass/Vol]35.7 g/lTSkjj33.4 - 34.8 g/dLBON MEMORIAL [facility] MARIETTA MEMORIAL HOSPITALV (RBC) [Entitic vol]95.0 fL82.6 - 102.9 fLSENTARA RMH MEDICAL CENTERNRBC Automated0.00.0 per 100 WBCSENTARA RMH MEDICAL CENTERPlatelet distribution width (Bld) [Ratio]12.9 %11.8 - 14.4 %[facility] Platelet mean volume (Bld) [Entitic vol]10.6 fL8.1 - 13.5 fLSENTARA RMH MEDICAL CENTERPlatelets (Bld) [#/Vol]187 10*3/uLBON SUMMA HEALTH BARBERTON CAMPUSRBC (Bld) [#/Vol]4.63 10*6/uL4.21 - 5.77 m/uLBON [facility] BARBERTON CAMPUSWBC (Bld) [#/Vol]5.3 10*3/uLBON [facility] Metabolic Profon [id number] [Mass/Vol]4.4 g/dLNormal3.5-5.2MUniversity Hospitals Elyria Medical CenterComment on above:Performed By: #### CP, CBC #### [address] [place] [address] Tank Maker Wood: Norm Frank MD #### BVTEST, GLYHGB #### [address] [address] Tank Maker Wood: Trenton Carbajal MDAlbumin/Glob Ratio1.4Uduyie3.0-2.5Mercy Memorial HospitalComment on above:Performed By: #### SANJUANITA, CBC #### [address] [place], [place] [id number] Tank Maker Wood: Norm Frank MD #### BVTEST, GLYHGB #### [address] [address] Tank Maker Wood: Heather Lopez Phos61 U/HBiukll47-637BzqmcMercy Memorial HospitalComment on above:Performed By: #### SANJUANITA, CBC #### [address] [place] [address] Tank Maker Wood: Norm Frank MD #### BVTEST, GLYHGB #### [address] [address] Tank Maker Wood: Trenton Carbajal MDALT [Catalytic activity/Vol]40 U/LNormal5-41 [facility] HospitalComaspirus keweenaw hospital on above:Performed By: #### SANJUANITA, CBC #### [address] [place] [address] Tank Maker Wood: Norm Frank MD #### BVTEST, GLYHGB #### [address] [address] Tank Maker Wood: Trenton Carbajal MDAnion gap [Moles/Vol]11 mmol/LNormal9-17Mercy Memorial HospitalComment on above:Performed By: #### CP, CBC #### [facility] [address] [place] [address] Dr. [place], [place] [phone] Tank Maker Wood: Norm Frank MD #### BVTEST, GLYHGB #### [address] [id number] Tank Maker Wood: Trenton Carbajal MDAST [Catalytic activity/Vol]23 U/LNormal<40Mercy Memorial HospitalComment on above:Performed By: #### SANJUANITA, CBC #### [facility] [address] [place] [address] Dr. [place], [place] [id number] Tank Maker Wood: Norm Frank MD #### BVTEST, GLYHGB #### [address] [address] Tank Maker Wood: Trenton Carbajal MDBilirubin [Mass/Vol]0.4 mg/dLNormal0.3-1.2MUniversity Hospitals Elyria Medical CenterComment on above:Performed By: #### SANJUANITA, CBC #### [address] [place], [place] [phone] Tank Maker Wood: Norm Frank MD #### BVTEST, GLYHGB #### [address] [address] Tank Maker Wood: Trenton Carbajal MDBUN/CRE Sfais21Ejrsyn0-70Ywlfo [facility] Comment on above:Performed By: #### SANJUANITA, CBC #### [address] [place], [place] [phone] Tank Maker Wood: Norm Frank MD #### BVTEST, GLYHGB #### [address] [address] Tank Maker Wood: SUSANA Lopezalcium [Mass/Vol]9.8 mg/dLNormal8.6-10.4Mercy Memorial HospitalComment on above:Performed By: #### CP, CBC #### [address] [place] [phone] Tank Maker Wood: Norm Frank MD #### BVTEST, GLYHGB #### [address] [phone] Tank Maker Wood: SUSANA Lopezhloride [Moles/Vol]106 mmol/MOpbfxo17-564BusgjMercy Memorial HospitalComment on above:Performed By: #### CP, CBC #### [address] [place] [id number] Tank Maker Wood: Norm Frank MD #### BVTEST, GLYHGB #### [place] [id number] Tank Maker Wood: SUSANA LopezO2 [Moles/Vol]23 mmol/MHigfil01-34UajuqMercy Memorial HospitalComment on above:Performed By: #### CP, CBC #### [address] [place] [phone] Tank Maker Wood: Norm Frank MD #### BVTEST, GLYHGB #### [address] [address] Tank Maker Wood: SUSANA Lopezreatinine [Mass/Vol]0.73 mg/dLNormal0.70-1.20 Mer[facility] Memorial HospitalComment on above:Performed By: #### CP, CBC #### [address] [place] [address] Tank Maker Wood: Norm Frank MD #### BVTEST, GLYHGB #### [address] [phone] Tank Maker Wood: Trenton Carbajal MDGFR/1.73 sq M.predicted among non-blacks MDRD (S/P/Bld) [Vol rate/Area]mL/min/{1.73_m2}Normal>60Mer[facility] Memorial HospitalComaspirus keweenaw hospital on above:Result Comment: Effective Jun 19, 2022 [...] tubular secretion.Performed By: #### CP, CBC #### [address] [place] [address] Tank Maker Wood: Norm Frank MD #### BVTEST, GLYHGB #### [address] [id number] Tank Maker Wood: Trenton Carbajal MDGlucose [Mass/Vol]179 mg/jPWyro79-25Taioh[address] [place], [place] [address]Comment on above:Performed By: #### SANJUANITA, CBC #### [address] [place] [address] Tank Maker Wood: Norm Frank MD #### BVTEST, GLYHGB #### [address] [id number] Tank Maker Wood: Trenton Carbajal MDPotassium [Moles/Vol]4.1 mmol/LNormal3.7-5.3 [facility] Memorial HospitalComment on above:Performed By: #### SANJUANITA, CBC #### [address] [place] [address] Tank Maker Wood: Norm Frank MD #### BVTEST, GLYHGB #### [address] [id number] Tank Maker Wood: Trenton Carbajal MDProtein [Mass/Vol]7.1 g/dLNormal6.4-8.3Mtogus va medical centery [facility]/John Dempsey HospitalComment on above:Performed By: #### CP, CBC #### [address] [place] [address] Tank Maker Wood: Norm Frank MD #### BVTEST, GLYHGB #### [place] [place], [place] [phone] Tank Maker Wood: EDGAR Lopezodium [Moles/Vol]140 mmol/HOwhavg911-601PapkaMercy Memorial HospitalComment on above:Performed By: #### CP, CBC #### [address] [place] [address] Tank Maker Wood: Norm Frank MD #### BVTEST, GLYHGB #### [place] [address] [place], [place] [phone] Tank Maker Wood: Trenton Carbajal MDUrea nitrogen [Mass/Vol]14 mg/dLNormal6-20Mer[facility] Memorial HospitalComment on above:Performed By: #### CP, CBC #### [address] [place] [address] Tank Maker Wood: Norm Frank MD #### BVTEST, GLYHGB #### [place] [address] [place], [place] [phone] Tank Maker Wood: SUSANA Lopezomprehensive Metabolic Panelon 09-01-2022 Albumin [Mass/Vol]4.4 g/dL3.5 - 5.2 g/dLBON SUM[facility]ALTH [facility]BERTON CAMPUSAlbumin/Globulin [Mass ratio]1.6 {ratio}1.0 - 2.5BON [facility] HEALTHALP (Bld) [Catalytic activity/Vol]61 U/L40 - 129 U/LBON [facility] HEALTHALT [Catalytic activity/Vol]40 U/L5 - 41 U/LBON [facility]BERTON CAMPUSAnion gap [Moles/Vol]11 mmol/L9 - 17 mmol/LBON [facility] HEALTHAST [Catalytic activity/Vol]23 U/L NINF - 40 U/LBON [facility] BARBERTON CAMPUSBilirubin [Mass/Vol]0.4 mg/dL0.3 - 1.2 mg/dLBON [facility]BERTON CAMPUSCalcium [Mass/Vol]9.8 mg/dL8.6 - 10.4 mg/dLBON SUM[facility]ALTH BARBERTON CAMPUSChloride [Moles/Vol]106 mmol/L98 - 107 mmol/LBON [facility] BARBERTON CAMPUSCO2 [Moles/Vol]23 mmol/L20 - 31 mmol/LBON [facility]US Creatinine [Mass/Vol]0.73 mg/dL0.70 - 1.20 mg/dLB[facility] MedCPUGFR/1.73 sq M.predicted MDRD (S/P/Bld) [Vol rate/Area]- [facility] Comment on above: Effective Jun [...] that affects renal tubular secretion. Glucose [Mass/Vol]179 mg/qMLfxm02 - 99 mg/dLBON [facility] Interpretation and review of laboratory resultsAbnormalBON [facility] Potassium [Moles/Vol]4.1 mmol/L3.7 - 5.3 mmol/LBON [facility]BERTON CAMPUSProtein [Mass/Vol]7.1 g/dL6.4 - 8.3 g/dLBON SUMMA HEALTH BARBERTON CAMPUSSodium [Moles/Vol]140 mmol/L135 - 144 mmol/LBON [facility] BARBERTON CAMPUSUrea nitrogen (BldV) [Mass/Vol]14 mg/dL6 - 20 mg/dLBON [facility] MedCPUUrea nitrogen/Creatinine (Bld) [Mass ratio]199 - 20BON [facility]ERT[facility] CAMPUSBON [facility] CAMPUSXR RIBS RIGHT (2 VIEWS)on [id number] acute osseous abnormality of the right ribs.[facility] Share[place]- [place], KYEXAMINATION: 2 XRAY VIEWS OF THE RIGHT RIBS 09/13/2020 4:22 pm COMPARISON: None. HISTORY: ORDERING SYSTEM PROVIDED HISTORY: Right-sided chest pain TECHNOLOGIST PROVIDED HISTORY: right sided chest pain, s/p injury FINDINGS: AP and oblique views of the right chest wall are submitted for review. No acute fracture or dislocation identified. Overlying soft tissues are unremarkable. Visualized lung parenchyma is clear.[facility], LAYOEdi, Mhpn Incoming Radiant Results From [...] acute osseous abnormality of the right ribs. [facility], KYALTon [id number] [Catalytic activity/Vol]37 U/L5 - 41 U/L [facility], KYASTon [id number] [Catalytic activity/Vol]19 U/L<40[facility] Health- [place], KYBasic Metabolic Panelon [id number] gap [Moles/Vol]10 mmol/L9 - 17 mmol/LMlake county [facility] hospital [facility] Health- [place], KYBun/Cre Kclhi51Jnkvy Health- [place], KYCalcium [Mass/Vol]9.9 mg/dL8.6 - 10.4 mg/dLTogus Va Medical Center Health- [place], KYChloride [Moles/Vol]99 mmol/L98 - 107 mmol/LMtogus va medical centery Health- [place], KYCO2 [Moles/Vol]25 mmol/L20 - 31 mmol/L [facility]- [place], KYCreatinine [Mass/Vol]0.77 mg/dL0.7 - 1.2 mg/dLTogus Va Medical Center Health- [place], KYGFR >60>60 mL/minTogus Va Medical Center Health- [place], KYGFR Non->60>60 mL/minTogus Va Medical Center Health- [place], KYGlucose [Mass/Vol]140 mg/rCEmqq50 - 99 mg/dLTogus Va Medical Center Health- [place], KYInterpretation and review of laboratory resultsAbnormal [facility], NCPotassium [Moles/Vol]4.0 mmol/L3.7 - 5.3 mmol/LMCommunity [facility], NCSodium [Moles/Vol]134 mmol/XFjr628 - 144 mmol/LMCommunity Memorial Hospital, NCUrea nitrogen [Mass/Vol]14 mg/dL6 - 20 mg/dLMartins Ferry Hospital, NCCBCon 07-21-2020 Erythrocyte distribution width (RBC) [Ratio]12.3 %11.8 - 14.4 %[facility], NCHematocrit (Bld) [Volume fraction]48.7 %40.7 - 50.3 %[facility], [place] Hemoglobin (Bld) [Mass/Vol]17.4 g/nWDlmw79 - 17 g/dLEast Sandwich, [place] Interpretation and review of laboratory resultsAbnormAdena Regional Medical Center, NCMCH (RBC) [Entitic mass]33.4 pg25.2 - 33.5 pgMartins Ferry Hospital, NCMCHC (RBC) [Mass/Vol]35.7 g/dURumm36.4 - 34.8 g/dLMartins Ferry Hospital, NCMCV (RBC) [Entitic vol]93.5 fL82.6 - 102.9 fLEast Sandwich, KYPlatelet mean volume (Bld) [Entitic vol]10.1 fL8.1 - 13.5 fLMartins Ferry Hospital, NCPlatelets (Bld) [#/Vol]206 10*3/[facility], NCRBC (Bld) [#/Vol]5.21 10*6/uL4.21 - 5.77 m/[facility], NCWBC (Bld) [#/Vol]7.8 10*3/[facility], NCWBC (Bld) [#/Vol] 0.0 10*3/uL0.0 per 100 WBCEast Sandwich, KYLipid Panelon 07-21-2020 Cholesterol [Mass/Vol]190 mg/dL<200[place], KYComment on above: Cholesterol Guidelines: <200 Desirable 200-240 Borderline >240 Undesirable Cholesterol in HDL [Mass/Vol]36 mg/dLLow>40[facility]- [place], KYComment on above: HDL Guidelines: <40 Undesirable 40-59 Borderline >59 Desirable Cholesterol in LDL [Mass/Vol]107 mg/dL0 - 130 mg/dLEast Sandwich, KYComment on above: LDL Guidelines: <100 Desirable 100-129 Near to/above Desirable 130-159 Borderline >159 Undesirable Direct (measured) LDL and calculated LDL are not interchangeable tests. Cholesterol in VLDL [Mass/Vol]NOT REPORTEDHigh1 - 30 mg/dLEast Sandwich, [place] Cholesterol.total/Cholesterol in HDL [Mass ratio]5.3 {ratio}High<5[place], KYInterpretation and review of laboratory resultsAbnormalEast Sandwich, KYTriglyceride [Mass/Vol]235 mg/dLHigh<150[place], KYComment on above: Triglyceride Guidelines: <150 Desirable 150-199 Borderline 200-499 High >499 Very high Based on AHA Guidelines for fasting triglyceride, June 2012. Metabolic Panelon [id number]/1.73 sq M predicted among non-blacks MDRD (S/P/Bld) [Vol rate/Area][place], KYComment on above:Stage 1: Some kidney damage [...] body mass. Additional eGFR calculator available at: http://www.FlashSoft.jslyhl/multiple_crcl_2012.htm BILIRUBIN CONJUGATED (DIRECT)on [id number], CONJUGATED0.2 mg/dLNormal0.0-0.3 The Summa HealthComment on above:Performed By: #### DBIL #### [facility] [address] [place] [address] Taras VazquezOwatonna Clinic AUTO DIFFon [id number] (Bld) [#/Vol]0.0 103/ulNormal 0.0-0.1The [facility]ma HealthComment on above:Performed By: #### CBC #### [facility] [address] [place], [place] [address] Taras KarenBasophils/100 WBC (Bld)0.7 %Normal0.2-2.0[facility] Comment on above:Performed By: #### CBC #### [facility] [address] [place] [address] Taras KarenEosinophils (Bld) [#/Vol]0.1 103/ulNormal0.0-0.7The [facility]ma HealthComment on above:Performed By: #### CBC #### [facility] [address] [place] [address] Taras KarenEosinophils/100 WBC (Bld)1.8 %Normal0.9-7.0[facility] Comment on above:Performed By: #### CBC #### [facility] [address] [place] [address] Taras KarenErythrocyte distribution width (RBC) [Ratio]12.5 %Pxfjtp26.0-15.0The [facility]ma HealthComment on above:Performed By: #### CBC #### [facility] [address] [place] [address] Taras KarenHematocrit (Bld) [Volume fraction]48.4 %Sabidp74.0-54.0The [facility]ma HealthComment on above:Performed By: #### CBC #### [facility] [address] [place] [address] Taras KarenHemoglobin (Bld) [Mass/Vol]17.3 g/yTAsddcs84.0-18.0The [facility]ma HealthComment on above:Performed By: #### CBC #### [facility] [address] [place] [address] Taras KarenIG #0.02 10e3/ulNormal0.00-0.03The [facility]ma HealthComment on above:Performed By: #### CBC #### [facility] [address] [place] [address] Taras KarenIG %0.3 %Normal0.0-0.5The [facility]ma HealthComment on above: Performed By: #### CBC #### [facility] [address] [place] [address] Taras KarenLymphocytes (Bld) [#/Vol]1.9 103/ulNormal1.2-3.8The [facility] HealthComment on above:Performed By: #### CBC #### [facility] [address] [place] [address] Taras KarenLymphocytes/100 WBC (Bld)30.5 %Dlkzcx71.5-60.0[facility] Comment on above:Performed By: #### CBC #### [facility] [address] [place] [address] Taras KarenMANUAL DIFF REQNONormalThe Summa HealthComment on above: Performed By: #### CBC #### [facility] [address] [place] [address] Taras KarenMCH (RBC) [Entitic mass]33.6 bqFhbgsi04.9-34.0[facility] Comment on above:Performed By: #### CBC #### [facility] [address] [place] [address] Taras KarenMCHC (RBC) [Mass/Vol]35.7 g/dLCritically high29.9-35.2[facility] Medical CenterComment on above:Performed By: #### CBC #### [facility] [address] [place] [address] Taras KarenMCV (RBC) [Entitic vol]94.0 lZMuzhhj31.0-94.0[facility] Comment on above:Performed By: #### CBC #### [facility] [address] [place] [address] Taras KarenMonocytes (Bld) [#/Vol]0.5 103/ulNormal0.3-0.8ThTriHealth McCull[facility] Comment on above:Performed By: #### CBC #### [facility] [address] [id number] Taras KarenMonocytes/100 WBC (Bld)8.0 %Normal1.7-12.0[facility] Comment on above:Performed By: #### CBC #### [facility] [address] [place] [address] Taras KarenNeutrophils (Bld) [#/Vol]3.6 103/ulNormal1.4-6.5ThTriHealth McCullough-Hyde Memorial HospitalComment on above:Performed By: #### CBC #### [facility] [address] [place] [address] Taras KarenNeutrophils/100 WBC (Bld)58.7 %Wjqhtn77.0-75.0[facility] Comment on above:Performed By: #### CBC #### [facility] [address] [place] [address] Taras KarenPlatelet mean volume (Bld) [Entitic vol]10.4 fLNormal9.5-13.5ThTriHealth McCullough-Hyde Memorial HospitalComment on above:Performed By: #### CBC #### [facility] [address] [place] [address] Taras KarenPlatelets (Bld) [#/Vol]203 103/kwQzfgev148-649JcoAshtabula County Medical Center Comment on above:Performed By: #### CBC #### [facility] [address] [place] [address] Taras KarenRBC (Bld) [#/Vol]5.15 106/ulNormal4.70-6.10ThTriHealth [facility] Comment on above:Performed By: #### CBC #### [facility] [address] [place] [address] Taras KarenWBC (Bld) [#/Vol]6.1 103/ulNormal4.0-11.0[facility] Comment on above:Performed By: #### CBC #### [facility] [address] [place] [address] Taras KarenGLYCOHEMOGLOBIN A1Con [id number] [Mass/Vol]232 mg/dLAdena Fayette Medical CenterComment on above:Performed By: #### A1C #### [facility] [address] [place], [place] [address] Taras ClhimGxJ5q (Bld) [Mass fraction]9.7 %Critically high<=6.0[facility] Medical CenterComment on above:Performed By: #### A1C #### [facility] [address] [place] [address] Taras KarenLIPID PROFILEon [id number]-HDL RATIO NORMSEE [facility] Union HospitalComment on above:Result Comment: 3.3 - 4.4 LOW RISK 4.4 - 7.1 AVERAGE RISK 7.1 - 11.0 MODERATE RISK >11.0 HIGH RISKPerformed By: #### CMP, LIPID #### [facility] [address] [place] [address] Taras KarenCholesterol [Mass/Vol]244 mg/dLCritically high<=200The [facility] HealthComment on above:Performed By: #### CMP, LIPID #### [facility] [address] [place] [address] Taras KarenCholesterol in HDL [Mass/Vol]> or = 60 mg/dl - LOW CARDIOVASCULAR RISK <40 mg/dl - HIGH CARDIOVASCULAR RISKAdena Fayette Medical CenterComaspirus keweenaw hospital on above:Performed By: #### CMP, LIPID #### [facility] [address] [place] [address] Taras KarenCholesterol in HDL [Mass/Vol]35 mg/dLAdena Fayette Medical Center Comment on above:Performed By: #### CMP, LIPID #### [facility] [address] [place] [address] Taras KarenCholesterol in LDL [Mass/Vol]179.8 mg/dLAdena Fayette Medical Center Comment on above:Performed By: #### CMP, LIPID #### [facility] [address] [place], [place] [address] Taras KarenCholesterol in LDL [Mass/Vol]SEE [facility] Comment on above:Result Comment: <100 mg/dl OPTIMAL 100 - 129 mg/dl NEAR OR ABOVE OPTIMAL 130 - 159 mg/dl BORDERLINE HIGH 160 - 189 mg/dl HIGH >190 mg/dl VERY HIGHPerformed By: #### CMP, LIPID #### [facility] [address] [place], [place] [address] Taras KarenCholesterol.total/Cholesterol in HDL [Mass ratio]7.0 {ratio}Normal The Summa HealthComment on above:Performed By: #### CMP, LIPID #### [facility] [address] [place], [place] [address] Taras KarenTriglyceride [Mass/Vol]146 mg/dLNormal<=150[facility] Comment on above:Performed By: #### CMP, LIPID #### [facility] [address] [place] [address] Taras KarenVLDL CALC29.2 mg/dLNormalThTriHealth McCullough-Hyde Memorial HospitalComment on above: Performed By: #### CMP, LIPID #### [facility] [address] [place], [place] [address] Taras KarenPROF 14(COMP METB)on 30-98-3624Kyntpis [Mass/Vol]4.2 g/dLNormal 3.5-5.0[facility] Medical CenterComment on above:Performed By: #### CMP, LIPID #### [facility] [address] [place], [place] [address] Taras KarenAlbumin/Globulin [Mass ratio]1.3 {ratio}NormalAshtabula County Medical Center Comment on above:Performed By: #### CMP, LIPID #### [facility] [address] [place], [place] [address] Taras KarenALP [Catalytic activity/Vol]66 U/OYrwccv64-252FhpAshtabula County Medical Center Comment on above:Performed By: #### CMP, LIPID #### [facility] [address] [place], [place] [address] Taras KarenALT [Catalytic activity/Vol]66 U/JOjquzk32-98ByfAshtabula County Medical Center Comment on above:Performed By: #### CMP, LIPID #### [facility] [address] [place], [place] [address] Taras KarenAnion gap [Moles/Vol]11.4 mmol/LNormalAshtabula County Medical CenterComment on above:Performed By: #### CMP, LIPID #### [facility] [address] [address] Taras KarenAST [Catalytic activity/Vol]31 U/FSqrtiy13-71MjlAshtabula County Medical Center Comment on above:Performed By: #### CMP, LIPID #### [facility] [address] [address] Taras KarenBilirubin Ql (U)0.8 mg/dLNormal0.2-1.3TGrand Lake Joint Township District Memorial HospitalComment on above:Performed By: #### CMP, LIPID #### [facility] [address] [address] Taras KarenCalcium [Mass/Vol]9.7 mg/dLNormal8.4-10.2[facility] Comment on above:Performed By: #### CMP, LIPID #### [facility] [address] [address] Taras KarenChloride [Moles/Vol]101 mmol/NLarteb79-285TuvAshtabula County Medical Center Comment on above:Performed By: #### CMP, LIPID #### [facility] [address] [place] [address] Taras KarenCO2 [Moles/Vol]29.1 mmol/IItxeap24.0-30.0[facility] Comment on above:Performed By: #### CMP, LIPID #### [facility] [address] [address] Taras KarenCreatinine [Mass/Vol]0.98 mg/dLNormal0.66-1.25[facility] Comment on above:Performed By: #### CMP, LIPID #### [facility] [address] [place] [address] Taras KarenEGFR-AF EMIRATI>60Normal>=60[facility] Medical CenterComment on above: Performed By: #### CMP, LIPID #### [facility] [address] [address] Taras KarenEGFR-NON AF EMIRATI>60Normal>=60The [facility]ma HealthComment on above:Performed By: #### CMP, LIPID #### [facility] [address] [address] Taras KarenGlobulin (S) [Mass/Vol]3.3 g/dLNormalThTriHealth McCullough-Hyde Memorial HospitalComment on above:Performed By: #### CMP, LIPID #### [facility] [address] [address] Taras KarenGlucose [Mass/Vol]248 mg/dLCritically rdwk52-261Vsg [facility]ma HealthComment on above:Performed By: #### CMP, LIPID #### [facility] [address] [place] [address] Taras KarenPotassium [Moles/Vol]4.5 mmol/LNormal3.4-5.0[facility] Comment on above:Performed By: #### CMP, LIPID #### [facility] [address] [place] [address] Taras KarenProtein [Mass/Vol]7.5 g/dLNormal6.1-8.2The [facility]ma HealthComment on above:Performed By: #### CMP, LIPID #### [facility] [address] [place] [address] Taras KarenSodium [Moles/Vol]137 mmol/RQyuiub035-958Euo [facility] Comment on above:Performed By: #### CMP, LIPID #### [facility] [address] [place] [address] Taras KarenUrea nitrogen [Mass/Vol]13.0 mg/dLNormal9.0-20.0The [facility]ma HealthComment on above:Performed By: #### CMP, LIPID #### [facility] [address] [place] [address] Taras KarenUrea nitrogen/Creatinine [Mass ratio]13.3 mg/mgNormalThe Summa HealthComment on above:Performed By: #### CMP, LIPID #### [facility] [address] [place] [address] Taras Cathi Vital Signs Date TimeVital SignValuePerforming [id number] 08:39-0400 Diastolic blood xtyzranw64 mm[Hg]Rajat Zeng [phone]-Mswzh[address] [place] [address] General Surgery [place] 11-30-2023 08:39-0400Mean blood lheybszj251 mm[Hg]Rajat Cobosy [phone]-Islvx[address] [place] [address] General Surgery [place] 11-30-2023 08:39-0400Systolic blood zmvmpgoa592 mm[Hg]Rajat Majorurany [phone]-Slexn[address] [place] [address] General Surgery [place] 11-30-2023 08:31-0400Blood Pressure LocationJogabriela Mourany [phone]-Jqphs[address] [place] [address] General Surgery [place] 11-30-2023 08:31-0400Diastolic blood mm[Hg]Rajat Zeng [phone]-Gbooo[address] [place] [address] General Surgery [place] 11-30-2023 08:31-0400Heart rate86 /minJohn Mourany [phone]-Nzuua[address] [place] [address] General Surgery [place] 11-30-2023 08:31-0400Respiratory rate16 /minJohn Mourany [phone]-Gtpgt[address] [place] [address] General Surgery [place] 11-30-2023 08:31-0400Systolic blood fxnreaxe776 mm[Hg]Rajat Zeng [phone]-Dvqvh[address] [place] [address] General Surgery [place] 10-26-2023 10:10-0500Blood Pressure LocationJohn Mourany [phone]-Cvtnz[address] [place] [address] General Surgery [place] 10-26-2023 10:10-0500Diastolic blood mm[Hg]Rajat Zeng [phone]-Ottsh[address] [place] [address] General Surgery [place] 10-26-2023 10:10-0500Heart rate88 /minJohn Mourany [phone]-SemnwChildren'S [facility] [place] 10-26-2023 10:10-0500Respiratory rate18 /Devin Zeng [phone]-OkgzdChildren'S [facility] Of [facility] 10-26-2023 10:10-0500Systolic blood cqguyebq465 mm[Hg]Rajat Zeng [phone]-GwxcuProvidence Hospital Encounters Encounter DateEncounter TypeCare ProviderFacilityStart: 75-60-1285cjokiqojkeEfol L SchwabFacility:[facility] BellevueStart: 03-36-7187ctvobrpjoqEkmw L Lana Facility: FM BellevueStart: 07-21-2025 End: 66-49-9826yrpnrlvpdyPHU Emily L SchwabFacility:FTMCStart: 06-30-2025 End: 00-75-2701vdyherrbdlOdqe L SchwabFacility: FM BellevueStart: 05-14-2025 End: 47-99-8652dwdxebxufhBFCPIF A LEHMANNFacility: FM BellevueStart: 04-07-2025 End: 44-13-6900ivhjaaxhagANPNJI A LEHMANNFacility: FM BellevueStart: 01-13-2025 End: 90-76-9988mxiopmeebxNTNROP A LEHMANNFacility: FM BellevueStart: 10-14-2024 End: 98-74-8487Kzp Drop offSHELLY A LEENA [facility] Start: 10-14-2024 End: 02-25-4239tabqejfwvtZCKFLO A LEHMANNFacility: FM BellevueStart: 08-15-2024 End: 50-17-6813umaosnpnbyHRPDJK A LEHMANNFacility:[facility] BellevueStart: 07-10-2024 End: 84-04-1980Ybv Drop offSHELLY A LEENA [facility] Start: 07-10-2024 End: 75-84-2031chnberauwlKVGXRE A LEHMANNFacility:FT FM BellevueStart: 05-15-2024 End: 06-97-6242smhfayhywlQKHLNK A LEHMANNFacility:FT FM BellevueStart: 04-15-2024 End: 37-89-5434dijysfurdcHTLZEB A LEHMANNFacility:FT FM BellevueStart: 04-09-2024 End: 74-85-1472cmcfubsujdFHHRJZ A LEHMANNFacility:FT FM BellevueStart: 03-18-2024 End: 14-51-0041mibvmrrohzIVISJY A LEHMANNFacility:FT FM BellevueStart: 02-21-2024 End: 88-68-2337Ola Drop offSHELLY A LEENA [facility] Start: 02-21-2024 End: 76-83-3929pdxeldrbceSFYQDA A LEHMANNFacility:FT FM BellevueStart: 02-19-2024 End: 15-90-6194aupqizrzvkEEHYMW A LEHMANNFacility:FT FM BellevueStart: 26-64-8326yroegpexrwWTYZPX A LEHMANNFacility: FM BellevueStart: 11-30-2023 End: 61-04-6127tmnayetrwlFlkz E. MouranyFacility:[facility] Hospitaltart: 11-30-2023 End: 63-52-8907Mallcia encounter procedureJohn E. Mourany [phone]-MbfvzChildren'S Hospital Of [facility] General Surgery [place] Start: 11-02-2023 End: 66-62-4588divqwsfkvhVvlb E. MouranyFacility: DakotaAdvanced Cyclone Systemstart: 11-02-2023 End: 32-51-8743Syaapvx encounter procedureJohn E. Mourany [phone]-CklbtTrinity Health [facility] Surgery [place] Start: 29-32-2887usmfeeucfjGaen MouranyFacility:[facility] Centertart: 10-26-2023 End: 62-51-2046knyuffrgtmIyev E. MouranyFacility:[facility] Hospitaltart: 10-26-2023 End: 67-97-4908Igmpetg encounter procedureRajat Zeng [phone]-AtuxcProvidence Hospital Start: 10-26-2023 End: 36-88-6625dxkuivnrzfZPFJBG A LEHMANNFacility:FT BellevueStart: 56-23-7075jscnvvxbqeJcde MouranyFacility:[facility] BellevueStart: 06-22-2023 End: 85-55-5705Deupjmhcx department patient visitTONY Nava [facility] HospitalStart: 09-13-2022 End: 88-95-2918rrmvqhiyttEDLXIMPilar Tolentino [facility] HospitalStart: 09-13-2022 End: 28-66-0380Oizxpijmbk hospital visit by Yeny Dixon PTMTHZ Physical TherapyComment on above:ArrivedStart: 09-01-2022 End: 01-59-2174mskfmioahkBRSRULPilar Tolentino [facility] HospitalStart: 09-01-2022 End: 37-67-1862Kyrkkzasyi hospital visit by Candido Durán APRN - JADYN Work Phone: mthz LaboratoryComment on above:Other hyperlipidemia; Type 2 diabetes mellitus without complication, without long-term current use of insulin (HCC); Essential hypertension; Erectile dysfunction, unspecified erectile dysfunction typeStart: 01-28-2021 End: 29-70-9562Pvikamqwbi hospital visit by Candido Durán APRN - JADYN Work Phone: mthz LaboratoryStart: 09-13-2020 End: 28-69-7238Lvmyzmxgew hospital visit by Georges Ortiz [address] [place] [address] RadiologyComment on above:Right-sided chest painStart: 07-21-2020 End: 00-51-9318Xfbwprjitx hospital visit by Candido Fernandez LaboratoryComment on above:Type 2 diabetes mellitus without complication, without long-term current use of insulin (HCC); Essential hypertensionStart: 52-07-2624Anuvwelbb for general adult medical examination without abnormal findingsSycamore Medical Centertart: 05-18-2020 End: 94-45-4517Mflqkxz encounter procedureDOUGMountain View Hospitalcility:Z8Hijii: 80-42-0858Fdgszyb encounter procedureDOIntermountain Healthcareity:J8Vjwpneybg for general adult medical examination without abnormal findingsSelect [facility] Procedures DateProcedureProcedure DetailPerforming ClinicianStart: 22-98-1579Onzdzrhfipqfq metabolic panelMonica Durán BONE CHAR KILN TENDER - FREIGHT BREAKER Work Phone: Start: 42-66-2424Vbnjz panelMonica Durán BONE CHAR KILN TENDER - FREIGHT BREAKER Work Phone: Start: 64-08-2842Kadfs ribs unilateral 2 viewsMonica Durán Work Phone: Start: 79-85-8498Ufjrp metabolic panel calcium total Monica Durán Work Phone: Start: 55-79-7563Wpsjr count complete automatedMonica Durán Work Phone: Start: 50-82-5131Odeyo panelMonica Durán Work Phone: Start: 33-44-8559Wclfbgopacg alanine amino alt sgpt Monica Durán Work Phone: Start: 05-62-0364Sgkjnimyymd aspartate amino ast sgot Monica Durán Work Phone: photorefractive keratoplastyRajat Zeng Structure of anterior cruciate ligament of knee joint (body structure)Rajat Zeng Plan of Treatment DateCare ActivityDetailAuthorStart: 19-96-7065Pmazjfhe foot examinationDiabetic foot examBON [facility]: 77-41-7389Tysbegdbby Monitoring Depression MonitoringInova Children's Hospitalart: 20-43-8807LCW test (Diabetes, CKD 3-4, OR last GFR 15-59)GFR test (Diabetes, CKD 3-4, OR last GFR 15-59)[facility]: 58-98-7795Aweyqxrodu A1c ympzifagvhtT8F test (Diabetic or Prediabetic)[facility] Hospitalart: 57-13-5769Xhhrf panelLipidsInova Children's Hospitalart: 03-09-2023 End: 55-07-3313Yxrogod encounter sjzgfsnaa94/23/2023 Office Visit Primary Care Monica Durán, BONE CHAR KILN TENDER - FREIGHT BREAKER [address] [facility] [address] [id number] [facility] Start: 30-21-8032Oybusaxc foot examinationDiabetic foot examBON [facility] Hospitalart: 79-68-2812Lujycqdcgy A1c wrqalgvblbeR2S test (Diabetic or Prediabetic)[facility]: 37-80-1104Eshqi panelLipidsInova Children's Hospitalart: 07-18-8433Sdsay screening for proteinDiabetic microalbuminuria testBath Community Hospital: 40-24-1180Ynyrjnkyc vaccinationFlu vaccine (#1)[facility]: 92-94-3030Ecjswauhbz measurementCreatinine monitoringTogus Va Medical Center [employer] Work Phone: start: 87-90-0840Ssfopjtih monitoringPotassium [facility] [employer] Phone: start: 15-56-8358Yvqfzixe foot examinationDiabetic foot examMartins Ferry Hospital, [place]Start: 16-10-9609Zoeqdfgffq measurementCreatinine [facility], [place]Start: 38-49-4795ImN1g (Bld) [Mass fraction]A1C test (Diabetic or Prediabetic)[facility]: 00-92-6261Traglphkgn A1c eepfdmfkoweC2N test (Diabetic or Prediabetic)[facility] HospitalBaravento Phone: start: 42-27-5165Wvpda panelLipid [facility]: 99-15-3511Zpmqkyhni monitoringPotassium monitoringOhioHealth O'Bleness Hospital: 77-16-5845Okjzawfhg vaccinationFlu vaccine (Season Ended)[facility] [employer] Phone: start: 02-04-2021 End: 79-39-2775Ntcmknc encounter hjhlozlsk15/21/2021 Office Visit Family Medicine Monica Durán, BONE CHAR KILN TENDER - FREIGHT BREAKER [address] [place] [address] [facility]tart: 11-15-2020 End: 43-30-5563Kwvnwl Visit11/15/2020 Office Visit Family Monica Camejo, BONE CHAR KILN TENDER - FREIGHT BREAKER [address] [place] [address] [facility] Start: 09-22-2020 End: 31-42-4768Rpinhx Visit09/22/2020 Office Visit Family Monica Camejo, BONE CHAR KILN TENDER - FREIGHT BREAKER [address] [place] [address] [facility] Start: 08-20-2020 End: 04-97-0896Qpedjd Visit08/20/2020 Office Visit Family Monica Camejo, BONE CHAR KILN TENDER - FREIGHT BREAKER [address] [place] [address] [facility] Start: 26-05-7652Ivuenwfnt vaccinationFlu vaccine (#1)[facility]: 20-24-5086Eiodkmwo screenDiabetes [facility]: 1999 DTaP/Tdap/Td vaccine (1 - Tdap)DTaP/Tdap/Td vaccine (1 - Tdap)[facility]: 40-28-0930Wymwdeyag B vaccine (1 of 3 - Risk 3-dose series) Hepatitis B vaccine (1 of 3 - Risk 3-dose series)[facility]: 53-28-0355Obhdatwb microalbuminuria testDiabetic microalbuminuria testOhioHealth O'Blen[facility] Hospital: 59-19-3051Zbynipoa retinal examDiabetic retinal examBON [facility]: 41-95-4708Sullx screening for proteinDiabetic Alb to Cr ratio (uACR) testB[facility] Community Hospital: 20-46-0049JZZ screeningHIV [facility]: 78-02-5818IOLOD-19 Vaccine (1)COVID-19 Vaccine (1)[facility] Work Phone: start: 32-95-7208Rxfbkugm retinal examDiabetic retinal examOhioHealth O'Bleness Hospital: 03-30-4498Oeipp panelLipid [facility]: 18-62-7950Sdvaohpsngdz 0-64 years Vaccine (1 of 1 - PPSV23) Pneumococcal 0-64 years Vaccine (1 of 1 - PPSV23)[facility]: 84-19-1422Ldvhcjouf vaccine (1 of 2 - 2-dose childhood series)Varicella vaccine (1 of 2 - 2-dose childhood series)[facility]: 72-27-3891EONDC-19 Vaccine (#1)COVID-19 Vaccine (#1)[facility]: 1980 Hepatitis C screeningHepatitis C [place] End: 53-80-4597SmD2s (Bld) [Mass fraction]Hemoglobin A1C Lab Routine Type 2 diabetes mellitus without complication, without long-term currentuse of insulin (HCC) Essential hypertension 1 Occurrences starting 07/21/2020 until 07/21/2020 [place], [place]:1 Occurrences starting 07/21/2020 until 07/21/2020HbA1c (Bld) [Mass fraction]Hemoglobin A1C Lab Routine Type 2 diabetes mellitus without complication, without long-term currentuse of insulin (HCC) Essential hypertension 07/21/2020 4:29 PM [place], [place] End: 97-83-1910Rhbglpvgvv A1c/Hemoglobin.total in BloodBON [employer] Work Phone: comment on above:1 Occurrences starting 09/01/2022 until 09/01/2022 Immunizations Immunization DateImmunizationNotesCare HwsnmxijAiklqrrw81-24-4866drehuguabjae polysaccharide vaccine, 23 Adriane Durán BONE CHAR KILN TENDER - [facility] Work Phone: BON HolairaComment on above:Result Comment: 2023-10-26: VIS DATE: 07/16/2019 Payers DatePayer CategoryPayerPolicy [id number]924-06-7717Bossqxw [id number] 1.2.840.755526.1.13.239.2.7.3.377[id number] 2..840.1.530078.3.57[id number] 2.16.840.1.497577.3.57[id number] 2.16.840.1.738268.3.579.2.55921-10-8752Zhebzyv53524145 2.16.840.1.986913.3.57[id number] 2.16.840.1.574998.3.579.2.[id number] 2.16.840.1.338345.3.57[id number] 2.16.840.1.974232.3.579.2.[id number] 2.16.840.1.511681.3.579.2.61957-01-8496Pslzoru39075113 2.16840.1.854383.3.579.[id number] 2.16840.1.323443.3.579.2.45612-14-0125Ufmiikj89701179 2.840.1.597251.3.579.2.74114-31-0460Nkuylms89248791 2.840.1.976199.3.579.2.09046-74-5978Lfndgjo35767288 2.840.1.564947.3.579.2.83102-88-1079Srkgctn28375464 2.840.1.560577.3.579.2.86331-54-3581Yatrmmy97190010 2.840.1.878937.3.579.2.95674-48-7503Gzmyvjp38457001 2.840.1.869638.3.579.2.76839-17-8269Euwkbui34419783 2.840.1.143188.3.579.2.42794-76-2800Nmuccus35362954 2.840.1.616045.3.579.2.15232-44-4160Twrueiq01011966 2.16840.1.605267.3.579.2.76855-06-5243Fjofbfa86103202 2.840.1.927384.3.579.2.29686-84-6704Xxywdyx07256717 2.16.840.1.927859.3.579.2.65218-19-2378Skfhfxi82031368 2.16.840.1.708007.3.579.2.31733-44-2678Latywvt04696234 2.16.840.1.126589.3.579.2.99337-77-1770Kfcxnyr83770465 2.16.840.1.510162.3.579.2.62810-81-3062Tykqenq02362620 2.16.840.1.573592.3.579.2.04080-97-8696Pzdwggf80623740 2.16.840.1.269398.3.579.2.93473-63-0543Qyysisj71909943 2.16.840.1.804809.3.579.2.45305-12-0395Hfgxkdc80440244 2.16.840.1.592714.3.579.2.37355-07-6758Pqwrgjx13744219 2.16.840.1.411952.3.579.2.02862-11-3461Flchmid36963577 2.16.840.1.055494.3.579.2.97439-16-2311Jawfdyq41160375 2.16.840.1.950111.3.579.2.84244-36-5571Ehtd-ytz60293038298-87-2745Juxmtsn [id number] 1.2.840.366081.1.13.239.2.7.3.714149.315 Social History DateTypeDetailFacilityStart: 07-21-2020 End: 44-70-1604Yyjycrv smoking status NHISCurrent every day smokerSENTARA RMH MEDICAL CENTERHistory of tobacco useCiSelect Specialty Hospital[facility]: 07-21-2020 End: 74-30-3683Xfmjxyt use and exposureNever usedMartins Ferry Hospital, LAYODutton: 07-21-2020 End: 28-31-3787Mddqtli SDOH Ecvpwkjei7XtfelMartins Ferry Hospital, LAYODutton: 07-21-2020 End: 28-20-4612Cpvozvp SDOH Food Uyafk0QgpplMartins Ferry Hospital, LAYOart: 07-21-2020 History SDOH Transport Okh2KyeqlMartins Ferry Hospital, KYSex Assigned At BirthNot on file [facility], LAYODutton: 94-09-6977Ibbgfvsdip smoked current (pack per day) - ReportedTogus Va Medical Center [employer] Work Phone: start: 42-18-5714Mjm Assigned At [facility] CenterTobacco2 packs a day Tobacco Use:.[facility] Tobacco smoking statusNo Smoking Status EnteredPremier Health [facility] Sex Assigned At [facility] Start: 68-11-0301Cjzoimi smoking statusHeavy tobacco smoker (finding)[facility] Hospitalobacco smoking statusNeverMadison Healthtart: 02-19-2024 End: 48-58-5891Bvjfjuy smoking statusEx-smoker (finding)[facility] [place] [facility] Procedure CodeEquipment CodeEquipment Original TextEquipment IdentifierDates Dispense sufficient amount for indicated testing frequency plus additional to accommodate PRN testing needs. Dispense all needed supplies to include: monitor, strips, lancing device, lancets, controlsolutions, alcohol swabs.[id number] Start: 09-02-2022 Functional Status IiboDwyktjcgwiPnwfaaSpapdqqk58-06-2376Zbwxfjspbo StatusN/[facility]02-09-2024Functional StatusN/[facility] Clinical Notes 09-13-2022 to 04-07-2025 Note Date & XvhbGekrHvrikjzs99-36-8695 NotePatient Education Endocrinology Blood Glucose Monitoring, Adult [...] Where to find more information ??? The [place] [employer]: diabetes.org ??? The Association of [...] levels in y (more content not included)... [facility]11-29-2024 NotePatient Education Cardiovascular Managing Your [...] changes are not enough (more content not included)...[facility]10-24-2024 Note Patient Education Endocrinology Diabetes [...] Carrots. Green beans. Tomatoes. Peppers. Onions. Cucumbers. [place] sprouts. Grains Whole grains, such as whole-wheat or whole- (more content not included)...[facility]07-02-2024 NotePatient Education Emergency Medicine Heart Attack A heart attack occurs when blood and oxygen supply to the heart is cut off. A heart attack can cause damage to the heart that cannot be fixed. A heart attack is also called a myocardial infarction, or OR. If you think you are having a [...] these instructions at home: Medicines ? Take izhb-clx-qtfzycv and prescription medicines only as told by [...] skipping beats. ? You (more content not included)...[facility]02-09-2024 Hospital Discharge instructions Patient Education [...] food choices, such as grocery stores and [employer] markets. What are the signs or symptoms? [...] and how much exercise you get. Take eqow-lxn-zitoewn and prescription medicines only as told by [...] provider. Document Revised: 04/11/2022 Document Reviewed: 04/11/2022 [employer] Patient Education 2022 [employer]. [facility] General Surgery [place] 12-28-2022 History of Present illness Narrative* Garcia Dixon PT - 09/13/2022 6:15 PM EST [facility] Physical Therapy Orthotic Fitting Plan of Care Date: 09/13/2022 Patient Name: Sultana Joshua : 1980 (41 y.o.) CSN #: [id number] Referring Physician: Monica Durán APRN * Diagnosis: [...] Signature: Date: 09/13/2022 documented in this encounterB[facility] [employer] Phone: evaluation + Plan note Future Appointments Appointment Date:11/02/2023 08:40:00 AM Scheduled Provider:Rajat Zeng MD Location:[facility] Appointment Type:[facility] 15 [facility] Evaluation + Plan note Future Appointments Appointment Date:11/30/2023 08:40:00 AM Scheduled Provider:Rajat Zeng MD Location:[facility] Appointment Type:[facility] 15 [facility] Evaluation + Plan note Future Appointments Appointment Date:03/18/2024 07:20:00 AM Scheduled Provider:PASQUALE STERN CNP Location:[facility] Appointment Type:FM Open Future Scheduled Tests Laboratory* HgbA1c [facility] Future Appointments Appointment Date:08/15/2024 08:00:00 AM Scheduled Provider:PASQUALE STERN CNP Location:[facility] Appointment Type:FM Open Future Scheduled Tests Laboratory* HgbA1c 12/07/23 [facility] Evaluation + Plan note Future Appointments Appointment Date:01/13/2025 07:20:00 AM Scheduled Provider:PASQUALE STERN CNP Location:[facility] Appointment Type:FM Open Future Scheduled Tests Laboratory* HgbA1c 12/07/23 [facility] evaluation note* Diagnosis Other hyperlipidemia Type 2 diabetes mellitus without complication, without long-term current use of insulin (HCC) Essential hypertension Unspecified essential hypertension Erectile dysfunction, unspecified erectile dysfunction type documented in this encounter [facility] Work Phone: Hospital course Narrative No data available for this section [facility] Discharge instructions No data available for this section [facility] Progress note No data available for this section [facility] Assessments Diagnosis Type 2 diabetes mellitus without complication, without long-term current use of insulin (HCC) Essential hypertension Unspecified essential hypertension Diagnosis Right-sided chest pain Advance Directives No Advanced Directives Records FoundDocuments on File TypeDate RecordedPatient RepresentativeExplanationACP-Advance DirectiveACP-Power of Roll Tension Tester Summary Purpose Family History No Family History [...] section and content) DATE CREATED AUTHOR 07/27/2020 [facility] DATE CREATED AUTHOR AUTHOR'S ORGANIZ ATION 06/25/2023 [facility] DATE CREATED AUTHOR AUTHOR'S ORGANIZ ATION 02/23/2024 [facility] DATE CREATED AUTHOR AUTHOR'S ORGANIZ ATION 03/19/2024 [facility] DATE CREATED AUTHOR AUTHOR'S ORGANIZ ATION 08/17/2024 [facility] DATE CREATED AUTHOR AUTHOR'S ORGANIZ ATION 10/16/2024 [facility] DATE CREATED AUTHOR AUTHOR'S ORGANIZ ATION 01/15/2025 [facility] DATE CREATED AUTHOR AUTHOR'S ORGANIZ ATION 04/09/2025 [facility] DATE CREATED AUTHOR AUTHOR'S ORGANIZ ATION 07/23/2025 [facility] Care Teams (unrecognized sec tion and content) Team MemberRelationshipSpecialtyStart DateEnd Date Monica Durán, BONE CHAR KILN TENDER - FREIGHT BREAKER [address] [place] [address] PCP - GeneralFamily Nurse Bnywjuwvauku22/4/20Team MemberRelationshipSpecialty Start DateEnd Date Monica Durán, BONE CHAR KILN TENDER - FREIGHT BREAKER [address] [place] [address] PCP - GeneralFamily Nurse Emambeeqvsfk05/4/20 FOR RECORDS PERTAINING TO PATIENTS WHO ARE [...] BE BASED ON THE PRIMARY CLINICAL RECORDS. [facility] [employer] provides no warranty or guarantee of the accuracy or completeness of information in this document.
--- NOTE | 2025-08-04 19:45 | CT_ITS ---
The [address] [address] Patient Name: SULTANA JASSO MRN: [id number] date: 1980 Sex: M Assigned Patient Location: ER Current Patient Location: ER Accession/Order Number: [id number] Exam Date: 08/04/2025 19:53 Report Date: 08/04/2025 20:09 At the request of: DANTE BUTLER MD Procedure: CT abdomen pelvis wo con CT Abdomen and Pelvis withoutcontrast TECHNIQUE: Axial imaging with 2-D reconstruction. The CT exam was performed using one or more the following dose reduction techniques: Automated exposure control, adjustment of the MA and/or Kv according to patient size, or use of the iterative reconstruction technique. COMPARISON: None History: Abdominal pain. Abnormal blood culture. LIMITATIONS: None LOWER THORAX basilar atelectasis LIVER: Unremarkable GALLBLADDER: Cholelithiasis. Gallbladder sludge. Nondistended gallbladder. BILE DUCTS: No dilatation SPLEEN: Unremarkable PANCREAS: Unremarkable ADRENAL GLANDS: Unremarkable KIDNEYS:Punctate bilateral nephrolithiasis. Nonspecific perinephric stranding. No hydronephrosis. No ureteral stone. AORTA: No abdominal aortic aneurysm identified. Moderate volume of atherosclerosis RETROPERITONEUM: No significant retroperitoneal abnormalities identified. MESENTERY:Unremarkable STOMACH nondistended:Unremarkable SMALL BOWEL: The small bowel loops are nondistended. APPENDIX: The appendix is normal. COLON: Moderate stool in the ascending colon. Moderate stool in the transverse colon. Nondistended descending colon. Sigmoid diverticulosis. URINARY BLADDER: Urinary bladder is unremarkable. REPRODUCTIVE SYSTEM: Reproductive structures are unremarkable. PNEUMOPERITONEUM: None PERITONEAL FLUID:None BONY STRUCTURES: Unremarkable ABDOMINAL WALL: Unremarkable CT/CT abdomen pelvis wo con IMPRESSION: No acute findings. Constipation proximally. Punctate bilateral nephrolithiasis. Cholelithiasis and gallbladder sludge. Impression dictated by: Willie Kothari M.D. 08/04/2025 8:09 PM Dictation Location: [facility] Electronically authenticated by: [id number] Y Date: 08/04/2025 20:09
[2025-08-04 19:54] LABS: Hematocrit 43.1 % (42.0-54.0); Hemoglobin 15.6 g/dL (14.0-18.0); Immature Granulocytes Abs Auto 0.06 10^3/uL (0.00-0.03); Immature Granulocytes Pct Auto 0.7 % (0.0-0.5); Lymphocytes Absolute Auto 0.8 10^3/uL (1.2-3.8); Mean Corpuscular HGB Conc 36.2 g/dL (29.9-35.2); Mean Corpuscular Hemoglobin 33.1 pg (25.9-34.0); Mean Corpuscular Volume 91.5 fL (80.0-94.0); Platelet Count 165 10^3/uL (150-450); Red Blood Count 4.71 10^6/uL (4.70-6.10); White Blood Count 8.4 10^3/uL (4.0-11.0)
[2025-08-04 20:09] LABS: Lactate/Lactic Acid 1.8 mmol/L (0.4-2.0)
[2025-08-04 20:15] LABS: Alanine Aminotransferase 71 U/L (16-63); Albumin Globulin Ratio 0.9; Albumin Level 3.6 g/dL (3.4-5.0); Alkaline Phosphatase 68 U/L (46-116); Anion Gap 13.5; Aspartate Amino Transferase 41 U/L (15-37); Blood Urea Nitrogen 19.0 mg/dL (7.0-18.0); Calcium 9.5 mg/dL (8.5-10.1); Carbon Dioxide 23.8 mmol/L (21.0-32.0); Chloride 99 mmol/L (98-107); Estimated GFR (African America >60 (>=60 mL/min/1.73m^2); Estimated GFR (Non-African Ame >60 (>=60 mL/min/1.73m^2); Globulin 3.8 g/dL; Glucose 315 mg/dL (74-106); Lipase 21.0 U/L (16.0-77.0); Potassium 4.3 mmol/L (3.5-5.1); Sodium 132 mmol/L (136-145); Total Protein 7.4 g/dL (6.4-8.2)
[2025-08-04] MEDS: KETOROLAC TROMETHAMINE 30 MG/ML VIAL IVP (20:15)
[2025-08-04] MEDS: 0.9 % SODIUM CHLORIDE 1,000 ML 999 ML IV (20:16)
--- NOTE | 2025-08-04 20:21 | ECG_ITS ---
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1980 Requested By: [id number] Order Number: [id number] Reading MD: ASHLEIGH HOPSON Measurements Intervals [place] Rate: 107 P: 56 FL: 148 QRS: 6 QRSD: 92 T: 77 QT: 310 QTc: 373 Interpretive Statements 1120 Sinus tachycardia 1570 with occasional ventricular premature complexes Cannot rule out anteroseptal myocardial infarction, age undetermined 4068 Nonspecific Twave abnormality 9140 abnormal rhythm ECG Compared to ECG 08/03/2025 22:59:46 Ventricular premature complex(es) now present Left ventricular hypertrophy no longer present Electronically Signed On 08-05-2025 16:14:26 EST by ASHLEIGH HOPSON
[2025-08-04 20:40] LABS: Glucose Urine UA >=1000 mg/dL (NEGATIVE)
[2025-08-04] MEDS: NITROGLYCERIN 0.4 MG BOTTLE SL (20:44)
[2025-08-04 21:05] LABS: Cast Seen? NONE SEEN #/LPF (NONE SEEN); Crystals Seen? None Seen #/HPF (None Seen)
[2025-08-04] MEDS: VANCOMYCIN HCL 1,750 MG in 0.9 % SODIUM CHLORIDE 500 ML 250 MG IV (21:32)
--- NOTE | 2025-08-04 21:35 | ECG_ITS ---
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
[2025-08-05] VITALS: BP 148/92; PULSE 103
== END 2025-08-05 00:25 | disposition short-term general hospital (02) ==
PROVIDERS: Emergency Provider Internal Medicine; PCP Nurse Practitioner Family
DX: R79.89 Other specified abnormal findings of blood chemistry (principal); M54.9 Dorsalgia, unspecified; K80.20 Calculus of gallbladder without cholecystitis without obstruction; K59.00 Constipation, unspecified; N20.0 Calculus of kidney
CPT/HCPCS: 36415; 74176; 80053; 81001; 83605; 83690; 84484; 85025; 85652; 86140; 87040; 93005; 96365; 96366; 96375; 99285; J1885; J3373

== ENCOUNTER 2025-08-17 12:38 | Outpatient (REF) | payer BC, SELFPAY ==
--- OUTSIDE RECORDS SUMMARY | 2025-08-10 09:54 | XMS_ITS | Continuity of Care Document ---
Author Organization [facility] Address [address] [place] [address] Phone Care Team Providers Care Shipping Technician Name Role Phone Lukas Lawrence MD Attending Provider [phone] Angelina Urbano [facility] Primary Care Provider + Tristin Henriquez MD Admit Provider Stephanie Stout RN Other Provider Unavailable Jaylin Bangura DO Other Provider [phone] Alexandria Michael MD Other Provider Tacho Camacho MD Other Provider [phone] Marilyn Zhao APRN Other Provider Terra Arroyo MD Other Provider Kiana Hernandez [facility] Other Provider [phone] Germain Bojorquez DO Other Provider Dedrick Hollis MD Other Provider Jose Eduardo Irving DO Attending Provider [phone] Jose Eduardo Irving DO Other Provider Care Teams Patient Care Team Team Status: Active Member Role/Relationship Status Dates Angelina Urbano [facility] Primary Care Provider Active Visit Care Team Team Status: Inactive Member Role/Relationship Status Dates Lukas Lawrence MD Attending Provider Active St art: August 03, 2025 End: August 03, 2025 Visit Care Team Team Status: Inactive Member Role/Relationship Status Dates Lukas Lawrence MD Attending Provider Active St art: August 03, 2025 End: August 03, 2025 Visit Care Team Team Status: Active Member Role/Relationship Status Dates Angelina Urbano [facility] Primary Care Provider Active Start: August 05, 2025 Tristin Henriquez MDAdmit ProviderActiveStart: August 05, 2025 Stephanie Stout RNOther ProviderActiveStart: August 05, 2025 Stephanie Stout RNOther ProviderActiveStart: August 05, 2025 Jaylin Bangura DOOther ProviderActiveStart: August 05, 2025 Alexandria Michael MDOther ProviderActiveStart: August 05, 2025 Tacho Camacho MDOther ProviderActiveStart: August 05, 2025 Marilyn Zhao APRNOther ProviderActiveStart: August 05, 2025 Terra Arroyo MDOther ProviderActiveStart: August 05, 2025 [facility] ProviderActiveStart: August 05, 2025 Germain Bojorquez DOOther ProviderActiveStart: August 05, 2025 Dedrick Hollis MDOther ProviderActiveStart: August 05, 2025 Jose Eduardo Irving DOAttending ProviderActiveStart: August 05, 2025 Jose Eduardo Irving DOOther ProviderActiveStart: August 05, 2025 Chief Complaint and Reason for Visit Chief Complaint Admit Date NSTEMI August 05, 2025 12:58am Reason for Visit Admit Date Anxiety August 05, 2025 12:58am Depression August 05, 2025 12:58am Epidural abscess August 05, 2025 12:58am Former cigarette smoker August 05, 2 025 12:58am GERD (gastroesophageal reflux disease) N ovember 2024 12:58am HLD (hyperlipidemia) August 05, 2025 12:58am HTN (hypertension) August 05, 2025 12:58am Lumbar back pain August 05, 2025 12:58am NSTEMI (non-ST elevated myocardial infar ction) August 05, 2025 12:58am Staphylococcus aureus bacteremia Novembe r 2024 12:58am Type 2 diabetes mellitus August 05, 2025 12:58am Vapes nicotine containing substance Pedro anthony 2024 12:58am Reason for Referral Type Reason(s) Provider Provider Contact Information Mihai magana Address Start Date Non-ST elevation myocardial infarction (NSTEMI) Lumbar back pain referral for CABGOur scheduling department will contact you with appointment information to have the MRI's completed. If you have any questions regarding these please call [phone].[facility] , MedWork Phone: [phone] [facility] [address] Mary Baileyil: [email or web address] Work Phone: [phone] [facility] [address] [facility] [address]Xgvpqlkmaría Hollis MDWork Phone: [phone] [facility] [address] [facility] [address]Bvs have been scheduled for a follow up appointment for the following date and time, please call to reschedule if needed.ANTHONY Yung-BCWork Phone: [phone] [facility] [address]mogbtghd for CABGMohamed Laz Sorto MDWork Phone: [phone] [address] [address] Allergies, Adverse Reactions, Alerts Allergen Type Severity Reaction Last Updated Verified Status No Known Allergies Allergy Unknown August 05, 2025 2:39amYesActive Social History Smoking Status Status Start Date End Date Date of Observa tion Ex-smoker (finding) August 06, 2025 3:19pm Observation Status Observation Response Date of Response Legal Sex Male (finding) Sex Assigned At BirthMaleFebruary 1980 Social History Assessments Assessment Value Date Recorded SDOH Follow up August 10, 2025 1:06pmQuestionAnswerDate RecordedHas the SDOH screening changed since admission?NNovember 2024 1:06pm Family History Relationship Condition Age at Onset Recorded Date/T marcus mother Diabetes mellitus Unknown HypertensionUnknownObesityUnknownSeizuresUnknownfatherSeizuresUnknown Cerebrovascular accident (CVA)Unknownpaternal grandfatherMalignant neoplasm Unknown Problems Active Problems Problem Diagnosis/Recorded Date Onset Date Stat us Staphylococcus aureus bacteremia August 05, 2025 2 :39am Unknown Active Vapes nicotine containing substance August 05 1:35am Unknown Active Epidural abscess August 05, 2025 11:31am Unknown Active Type 2 diabetes mellitus August 05, 2025 1:33am Un known Active Anxiety August 05, 2025 1:34am Unknown A ctive Depression August 05, 2025 1:34am Unknown A ctive HLD (hyperlipidemia) August 05, 2025 1:34am Unknow n Active NSTEMI (non-ST elevated myoc ardial infarction) August 05, 2025 2:38am Unknown Active Former cigarette smoker August 05, 2025 1:35am Unk nown Active Lumbar back pain August 05, 2025 2:38am Unknown Active GERD (gastroesophageal reflux disease) August 05, 2025 1:35am Unknown Active HTN (hypertension) August 05, 2025 1:34am Unknown Active Medications Medication Status Dose Units Route Directions Qty Days Refills S tart Date Stop Date End Date Reason(s) Instructions Adherence Cyclobenzaprine 10 mg tablet Discontinued 10 MG PO Bedtime as needed for muscle spasm August 05, 2025 12:00amNove2024 10:18amIbuprofen 800 mg tablet Qkoshu187IPWDT6F as needed for painAugust 05, 2025 12:00amComplies with drug therapyEnalapril Maleate 20 mg cjhwwbColciuvvivyt41LCVGCjtyokvEgxfqamp 19th, 2025 12:00am[facility] 20[facility] 10:18amPioglitazone 45 mg qckxbgMqcenh52YACG DailyAugust 05, 2025 12:00amComplies with drug therapyCitalopram 20 mg bnuaphHzninpupxegp53HNJXPvziwGzpulerw 19th, 2025 12:00amNovember 2024 10:18amMethocarbamol 750 mg kicgykGwlcfl119EUWYEenqi 6 hours as needed for muscle spasmAugust 05, 2025 12:00amComplies with drug therapyMetformin 1,000 mg rszwmcExywhd6549HMDTKsodg breakfast and supperAugust 05, 2025 12:00am Complies with drug therapyDulaglutide (Trulicity) 0.75 mg/0.5 mL pen injector Active0.75MGSUBCUTevery weekAugust 05, 2025 12:00amSundaysComplies with drug therapyAmlodipine 10 mg lrpmywIeuohk02TBFWQbnreQyowtxyq 19th, 2025 12:00am Complies with drug therapyEnalapril Maleate 10 mg iiqxynPpzeptucapsr67ACWMQokuw August 05, 2025 12:00amN[facility]20[facility] 10:18amOmeprazole 20 mg capsule,delayed release(DR/EC)Zbmabz01NZHJEvirr at 0630August 05, 2025 12:00amComplies with drug therapySimvastatin 40 mg fxxmviCvzehffhokkv52WYVMYayot at bedtimeAugust 05, 2025 12:00amN[facility]2024 10:18amAtorvastatin 40 mg YuejpdOlnioa40PSQDJiqet tnpmtei29044Pfepljmr 21st, 2025 12:00amUnknown Valsartan 80 mg EzauoxSqnlpm111YYUWKijuc15152Qamfqbae 21st, 2025 12:00amUnknown Aspirin 81 mg Tablet,Delayed Release (Dr/Ec)Zptsmv15FCKLHdegv26640Omlbnzuk 21st, 2025 12:00amUnknownNitroglycerin 0.4 mg Tablet, SublingualActive0.4MGSUBLINGUAL Q5M as needed for Chest Ehri29888JulxzpsmAugust 07, 2025 12:00amUnknownMetoprolol Tartrate 25 mg PkfsjkSybfqg63YKFFZabgu llbee902343Emadlpkv 21st, 2025 12:00am UnknownCefazolin 2 gram Recon FafuXdatug6OYBOA8M19689Wyawalki 23rd, 2025 12:00am UnknownCitalopram 20 mg CeadfeIirxnr37JIUXPjjcf737Jpdccoim 24th, 2025 12:00am Further refills, or dose change, are to come from the PCP.UnknownInsulin Aspart U-100 100 unit/mL (3 mL) Insulin YxmUedrhq9GLPRBQAROZ9d/Day before August 10, 2025 12:00amFollow carbohydrate counting scale. Therapeutic interchange is OK. Further refills, or dose change, are to come from the PCP.UnknownInsulin Glargine (Lantus Solostar U-100 Insulin) 100 unit/mL (3 mL) Insulin DbhVmioew00 UNITSUBCUTDaily at ednxpik442HgipjirzAugust 10, 2025 12:00amMay increase this by 5 units per day as needed for blood glucose control. Further refills, or dose change, are to come from the PCP.UnknownLancets misc Snfxpi5874EhtsltmxAugust 10, 2025 12:00amType 2 diabetes mellitus Type 2 diabetes mellitus without complicationsAs DirectedPen Needle, Diabetic (Ulticare Pen Needle) 31 gauge x 3/16 RbzlpeFghzgo0622Bcptbdmv 24th, 2025 12:00amType 2 diabetes mellitus Type 2 diabetes mellitus without complicationsAs Directed Procedures Procedure Date Performed Status Blood Culture August 03, 2025 completed Blood Culture August 03, 2025 completed Relevant Diagnostic Tests and/or Laboratory Data Microbiology Results Procedure Source Result Collection Date/Time Result Date/Time Result Comment Performing Site Blood Culture Blood, Right Forearm Staphylococcus aureus August 03, 2025 11:10pm August 08, 2025 8:15am [facility] [id number] [address] [place] [address]Rrdfu CultureBlood, Right HandStaphylococcus aureusAugust 03, 2025 11:20pmAugust 08, 2025 8:18am[facility] [id number] [address] [place] [address] Vital Signs Vital Reading Result Reference Range Collection Date/Time Height 73 [in_i] August 06, 2025 4:46ngLzwjgq861.10 kgAugust 10, 2025 6:00amBody Jrkequdenlq86.2 [degF]97.6-99.0August 10, 2025 8:07amHeart Rate81 /lsc33-733 August 10, 2025 8:07amRespiratory rate18 /axd35-55AccmrbsqAugust 10, 2025 8:07am Oxygen saturation by Pulse %95-100August 10, 2025 8:07amBP Egoiuqox660 mm[Hg]100-140August 10, 2025 8:07amBP Udekfkbvd40 mm[Hg]60-100 August 10, 2025 8:07amInhaled oxygen flow rate2 L/minAugust 07, 2025 8:00am Advance Directives Advance Directive Response Recorded Date/ Time Advance Directives No July 11:16pm Insurance Providers Guarantor Gracie Josiane Sita Address [address] [address]Zvsogbn Info.Home Phone: Coverage Status Update:2025 Payer Group Member ID Coverage Type Subscriber Relationship to Subscriber Effective Date Expiration Date May[place] BC/BS Id: [id number] Stickles , M Id: [id number] [address] [address] Home Phone: Email: [email or web address] Encounters Encounter Location(s) Arrival/Admit Date Discharge/Departure Date Discharge/Departure Disposition Provider(s) Departed Referred -[facility] August 03, 2025 11:10pm August 03, 2025 11:11pm Discharged to home care or self care (routine discharge) Lukas Lawrence MD Departed Referred -[facility] August 03, 2025 11:20pm August 03, 2025 11:21pm Discharged to home care or self care (routine discharge) Lukas Lawrence MD [facility] August 05, 2025 12:58am Jose Eduardo Irving DO Recent Diagnosis Onset Date Admit Date Anxiety Unknown August 05 12:58am Depression Unknown August 05 12:58am Epidural abscess Unknown August 05, 2025 12:58am Former cigarette smoker Unknown August 05, 2025 12:58am GERD (gastroesophageal reflux disease) Unknown August 05, 2025 12:58am HLD (hyperlipidemia) Unknown August 052024 12:58am HTN (hypertension) Unknown July 12:58am Lumbar back pain Unknown August 05, 2025 12:58am NSTEMI (non-ST elevated myocardial infarction) U nknown August 05, 2025 12:58am Staphylococcus aureus bacteremia Unknown August 05, 2025 12:58am Type 2 diabetes mellitus Unknown [facility] 20[facility] 12:58am Vapes nicotine containing substance Unknown August 05, 2025 12:58am Assessments Diagnosis Onset Date Resolution Status Admit Date Anxiety acuteAugust 05, 2025 12:58amDepressionacuteAugust 05, 2025 12:58am Epidural abscessacuteAugust 05, 2025 12:58amFormer cigarette smokeracute August 05, 2025 12:58amGERD (gastroesophageal reflux disease)acuteAugust 05, 2025 12:58amHLD (hyperlipidemia)acuteAugust 05, 2025 12:58amHTN (hypertension)acuteAugust 05, 2025 12:58amLumbar back painacuteAugust 05, 2025 12:58amNSTEMI (non-ST elevated myocardial infarction)acuteAugust 05, 2025 12:58amStaphylococcus aureus bacteremiaacuteAugust 05, 2025 12:58amType 2 diabetes mellitusacuteAs[facility]2024 12:58amVapes nicotine containing substanceacuteAugust 05, 2025 12:58am Plan of Treatment Future Tests Future scheduled test information is unavailable Pending Tests Test Name Ordered Date Scheduled Date lumbar spine wo/w con August 09, 2025 9:4 8am 10 Days Partial Thromboplastin Time August 05, 2025 2:53am August 13, 2025 5:00am Partial Thromboplastin Time August 05, 2025 2:53am August 11, 2025 5:00am Partial Thromboplastin Time August 05, 2025 2:53am August 12, 2025 5:00am Partial Thromboplastin Time August 05, 2025 2:53am August 14, 2025 5:00am Future Visits Future appointment information is unavailable Future Procedures Procedure Name Ordered Date Scheduled Date thoracic spine wo/w con August 09, 2025 9 :50am 10 Days Initiate Home Health August 10, 2025 10:49am PICC Line Insertion ConsultAugust 08, 2025 9:36amNovember 2024 9:36am Admit Status OrderAugust 05, 2025 2:53amNovember 2024 2:53amCardiology PRN OrdersAugust 05, 2025 2:53amNovember 2024 2:53amComplete Blood Count Auto DiffAugust 05, 2025 2:53amNovember 2024 5:00amComplete Blood Count Auto DiffAugust 05, 2025 2:53amNovember 2024 5:00am Complete Blood Count Auto DiffAugust 05, 2025 2:53amNovember 2024 5:00amComplete Blood Count Auto DiffAugust 05, 2025 2:53amNovember 2024 5:00amCode StatusAugust 05, 2025 2:53amNovember 2024 2:53am Discharge OrderAugust 10, 2025 10:18amNovember 2024 10:18amConsult to Infectious DiseasesAugust 05, 2025 3:07pmAugust 05, 2025 3:07pmConsult to [facility]20[facility] 9:11amNove2024 9:11am Future Medications Future medication information is unavailable Patient Instructions Instruction Admit Date Know your Meds August 05, 2025 12:58am Hospital Discharge Instructions Ambulatory Orders* Initiate Home Health Time Frame: 08/10/25, Location: Determined By Patient Additional Instructions Insulin: For the rapid (fast acting) insulin: Use 1 unit of insulin per 5 grams of carbohydrates for each meal. For the long acting insulin: Start at 20 units per day, and may gradually increase this until your blood sugars are in a good range. DISCHARGE INSTRUCTIONS FOR CARDIAC DIGITAL MARKETING LEAD PROCEDURE: Heart Cath The following instructions have been prepared to help you care for yourself, or be cared for upon your return home. 1. You were given conscious sedation. Do not operate a vehicle, power tools, make important decisions, or drink alcohol for 24 hours. You might be drowsy or light headed. Return to the Emergency Room if you have trouble breathing, walking or nausea and vomiting. 2. FOR BLEEDING: Apply continuous pressure to the site and call 911. 3. Operative Site Care: Keep the dressing clean and dry. You may change the dressing only if soiled or wet. You may remove the dressing the following morning. You may wash over the puncture site in the shower. If the puncture site is at the wrist no soaking for 3 days. Some bruising or slight swelling may be present. -Signs of infection are redness, warmth, swelling, getting more sore, colored drainage, fever or chills. -Should the arm or leg become cold, numb, blue or white, call the wringer operator immediately. 4. ACTIVITY: You are advised to go directly home from the hospital. Restrict your activities for the rest of the day. Resume light or normal activities tomorrow. Do not engage in any activity that will stress the puncture site. Avoid heavy lifting (over 15 lbs.), straining or bending at the catheter site for 48 hours after discharge. If the puncture site is at the wrist do not manipulate wrist for 24 hours and no lifting more than 3 lbs for 3 days. 5. DIET:You may eat your regular diet when you desire. 6. MEDICATIONS: Resume your daily prescription schedule. Prescriptions may be sent with you if needed. Use as directed. When taking pain medications, you may experience dizziness or drowsiness. Do not drink alcohol or drive when taking pain medications. 7. If you should experience episodes of angina e.g. chest discomfort, heaviness, tightness, pressure, burning, with or without radiation to the neck, jaws, arms, or back- Use 1 Nitrostat under your tongue every 5-10 minutes, and up to 3 tablets. If no relief- Call 911 and go to the nearest Emergency Room. -Notify the office for recurrent angina, chest pain or other concerns. You may NOT drive yourself home! Follow the medication instructions provided on your discharge. If the dosages and instructions on this sheet differ from the dosage and instructions on the bottle, follow the instructions on the bottle. [facility] is not responsible for incorrect prescription information provided by the patient during their visit. Do not stop your medications without consulting your health care provider. Please take the list with you to your next doctor's appointment. HOME HEALTH TO MANAGE: Nursing to eval and treat Monitor VS per protocol Monitor pain assessment--Lumbar back pain Monitor for increased signs of infection--Bacteremia Monitor Cardiac assessment--NStemi, Critical 2 vessel disease Assist with medication management and provide medication education Assist with glucose control Maintain and perform routine care to PICC line--Educate patient on Administer IV antibiotic as ordered--Educate patient on
--- OUTSIDE RECORDS SUMMARY | 2025-08-17 12:41 | XMS_ITS | Clinical Summary ---
Author Organization [facility] Address [address], [address] [place] [address] Care Team Providers Care Cider Press Operator Name Role Phone DuránMonica navarro PRN PHYSICAL THERAPIST - LAUNDRY TECHNICIAN Primary Care Provide r Allergies No known [...] without complication, without long-term current use of meynmdl6408/17/2020Essential hypertension 08/17/20203593Irpvvyx39/01/3388Nmqyjncfwk03/01/2020Other unqfseqalnhqsv73/01/2020 Tobacco use08/17/2020 Immunizations ImmunizationAdministration DatesNext DuePneumococcal, PPSV23, PNEUMOVAX 23, (age 2y+), SC/IM, 0.5mL11/07/2021 Family History Medical HistoryRelationNameCommentsArthritisFatherCancerFatherDiabetesFather Heart DiseaseFatherStrokeFatherDiabetesMotherHigh Blood PressureMotherRelation NameStatusCommentsFatherMother Social History Tobacco UseTypesPacks/DayYears UsedDateSmoking Tobacco: Every BuuEideudhdlk819 Smokeless Tobacco: Never Tobacco Cessation:Ready to Q [...] Source: IP Abuse ScreeningAnswerDate RecordedRead-Only, Retired: Physical PobtjHftgtk96/06/2023Read-Only, Retired: Verbal HzmfiIpcdbw46/06/2023Read-Only, Retired: Emotional wltzlMpppwv93/06/2023 Read-Only, Retired: Financial HubfoAoxegx31/06/2023Read-Only, Retired: Sexual adabyTaigzj33/06/2023Sex and Gender InformationValueDate RecordedSex Assigned at NonjdUjfx15/16/2022 11:11 PM ESTLegal TysDngr16/20/2020 4:19 PM EDTGender OywptbyzNprq34/16/2022 11:11 PM ESTSexual OmwgzplpccoJdnmvcze36/16/2022 11:11 PM EST Last Filed Vital Signs Vital SignReadingTime TakenCommentsBlood Shlhlskk812/7910 7:00 AM EDT Qnkar108806/22/2023 7:00 AM WMRLjafzopwawc96.7 ??C (98 ??F)06/22/2023 5:50 AM EDT Respiratory Wxij0925 7:00 AM EDTOxygen Nwgjausmls45%06/22/2023 7:00 AM EDTInhaled Oxygen Concentration--Uvsujn711.4 kg (250 lb)06/22/2023 5:50 AM EDT Bmajbd873.4 cm (6' 1 )06/22/2023 5:50 AM EDTBody Mass Index32.9806/22/2023 5:50 AM EDT Plan of Treatment Health MaintenanceDue DateLast DoneCommentsDepression Xlzhtaenae43/26/1992 Diabetic retinal exam1997DTaP/Tdap/Td vaccine (1 - Tdap)1998 Hepatitis B vaccine (1 of 3 - 19+ 3-dose series)1998Diabetic Alb to Cr ratio (uACR) test2Pneumococcal 0-49 years Vaccine (2 of 2 - PCV)2A1C test (Diabetic or Prediabetic), 11/07/2021, 05/09/2021, Additional history jjkmipHhhizg43/16/202312/, 11/07/2021, 01/28/2021, Additional history existsDiabetic foot exam09/02/2023 09/02/2022, 11/07/2021, 08/17/2020GFR test (Diabetes, CKD 3-4, OR last GFR 15-59), 09/01/2022, 11/07/2021, Additional history exists Gpqdtvhyqhv96/26/2025olorectal Cancer Wyvuys2811/12/2024FIT/FOBT: Average risk 2024Fecal-DNA (Cologuard): Average risk2024Sigmoidoscopy/CT xrnachpaofvy65/26/2025Flu vaccine (#1)04/17/2025OVID-19 Vaccine ( season)2025Diabetes icdacmEcimvfcmmifc79/16/2022, 11/07/2021, 05/09/2021, Additional history existsHIV screenDiscontinuedHPV vaccine [...] METABOLIC PANEL STAT1 5:54 AM EDT HEMOGLOBIN U2RCnynlge19/16/2022 11:10 AM EST Type 2 diabetes mellitus without complication, without long-term current use of insulin (HCC) LIPID SXFWTPrhgnhi60/16/2022 11:09 AM EST Other hyperlipidemia MICROALBUMIN, SDLxqffvl10/21/2022 5:13 PM EST Type 2 diabetes mellitus without complication, without long-term current use of insulin (HCC) from Last 3 Months or Most Recently Relevant to Health Maintenance Results * (ABNORMAL) BMP (06/22/2023 5:54 AM EDT)ComponentValueRef RangeTest Method Analysis TimePerformed AtPathologist BgwfcgtjrMzdbmm834524 - 144 mmol/L 06/22/2023 5:54 AM [facility] LABPotassium4.43.7 - 5.3 mmol/L1 5:54 AM [facility] ENKNfcicxpb83005 - 107 mmol/L1 5:54 AM [facility] PZQGL20775 - 31 mmol/L1 5:54 AM [facility] LABAnion Xjy881 - 17 mmol/L1 5:54 AM [facility] WQGYtoscqg272(H)70 - 99 mg/dL06/22/2023 5:54 AM [facility] RILWVK793 - 20 mg/dL06/22/2023 5:54 AM [facility] LABCreatinine0.90.7 - 1.2 mg/dL06/22/2023 5:54 AM [facility] LABEst, Glom Filt Rate>60>60 mL/min/1.09w86906/22/2023 5:54 AM [facility] Comment: ? These results are [...] therapy that affects renal tubular secretion. BUN/Creatinine Aaxbd865 - 5:54 AM [facility] LABCalcium9.98.6 - 10.4 mg/dL06/22/2023 5:54 AM [facility] LABSpecimen (Source)Anatomical Location / LateralityCollection Method / Volume Collection TimeReceived TimeBloodBLOOD SPECIMEN / Afkmrys8206/22/2023 5:54 AM EDT 06/22/2023 5:56 AM EDT Narrative Authorizing ProviderResult TypeResult StatusEvan Seamons MDCHEMISTRY ORDERABLES Final ResultPerforming OrganizationAddressCity/State/ZIP CodePhone Number [facility] [address] [place], [place] [address] [phone] * (ABNORMAL) Hemoglobin A1C (09/01/2022 11:10 AM EST)ComponentValueRef RangeTest MethodAnalysis TimePerformed AtPathologist SignatureHemoglobin A1C6.7(H)4.0 - 6.0 %09/01/2022 11:10 AM ESTMERCY LABORATORIESEstimated Avg Mfcbzbj323ph/dL 09/01/2022 11:10 AM ESTMERCY LABORATORIESComment: The ADA and AACC recommend providing the estimated average glucose result to permit better patient understanding of their HBA1c result. Specimen (Source)Anatomical Location / LateralityCollection Method / Volume Collection TimeReceived TimeBLOOD SPECIMEN / Eglwbag8409/01/2022 11:10 AM EST 09/01/2022 11:11 AM EST Narrative Authorizing ProviderResult TypeResult StatusMonica Durán PRN PHYSICAL THERAPIST - CNPCHEMISTRY ORDERABLESFinal ResultPerforming OrganizationAddressCity/State/ZIP CodePhone Number [facility] [address] [phone] [facility] [address] [id number] [phone] * (ABNORMAL) Lipid Panel (09/01/2022 11:09 AM EST)ComponentValueRef RangeTest MethodAnalysis TimePerformed AtPathologist GnvkfdrjnRipofcfjfnh354<200 mg/dL 09/01/2022 11:09 AM ESTMERCaseRev LABORATORIESComment: Cholesterol Guidelines: <200 Desirable 200-240 ??Borderline >240 Undesirable HDL37(L)>40 mg/dL09/01/2022 11:09 AM ESTMERCY LABORATORIESComment: HDL Guidelines: <40 Undesirable 40-59 ?Borderline >59 Desirable LDL Ighhmargvcs6537 - 130 mg/dL09/01/2022 11:09 AM ESTMERCY LABORATORIESComment: LDL Guidelines: <100 Desirable 100-129 ?? Near to/above Desirable 130-159 ?? Borderline >159 Undesirable Direct (measured) LDL and calculated LDL are not interchangeable tests. Chol/HDL Ratio5.0(H)<512 11:09 AM ESTMERCY LABORATORIESComment: Cfjjroztpxijg570<150 mg/dL09/01/2022 11:09 AM ESTMERCY LABORATORIESComment: Triglyceride Guidelines: <150 Desirable 150-199 ??Borderline 200-499 ??High >499 Very high Based on AHA Guidelines for fasting triglyceride, June 2012. Specimen (Source)Anatomical Location / LateralityCollection Method / Volume Collection TimeReceived TimeBLOOD SPECIMEN / Feamivt3309/01/2022 11:09 AM EST 09/01/2022 11:10 AM EST Narrative Authorizing ProviderResult TypeResult StatusMonica Durán PRN PHYSICAL THERAPIST - CNPCHEMISTRY ORDERABLESFinal ResultPerforming OrganizationAddressCity/State/ZIP CodePhone Number [facility] [address] [id number], [facility] [phone] [phone] * (ABNORMAL) Microalbumin, Ur (11/07/2021 5:13 PM EST)ComponentValueRef Range Test MethodAnalysis TimePerformed AtPathologist SignatureAlbumin Hlwvo698(H) <21 mg/L11/07/2021 5:13 PM ESTMERCY LABORATORIESCreatinine, Ur114.839.0 - 259.0 mg/dL11/07/2021 5:13 PM ESTMERCY LABORATORIESMicroalb/Machine Stonecutter. Inoyn888(H) <17 mcg/mg creat11/07/2021 5:13 PM ESTMERCY LABORATORIESSpecimen (Source) Anatomical Location / LateralityCollection Method / VolumeCollection Time Received GytyKzxfh25/21/2022 5:13 PM EST11/07/2021 5:14 PM EST Narrative Authorizing ProviderResult TypeResult John Durán PRN PHYSICAL THERAPIST - CNPURINE ORDERABLESFinal ResultPerforming OrganizationAddressCity/State/ZIP CodePhone Number [facility] [address] [place] [address], [facility] [phone] [phone] from Last 3 Months or Most Recently Relevant to Health Maintenance Care Teams Team MemberRelationshipSpecialtyStart DateEnd Date Monica Durán, PRN PHYSICAL THERAPIST - LAUNDRY TECHNICIAN [address] [place] [address] Dr [address] [place] [address] PCP - GeneralFamily Nurse Practitioner09/26/22
--- OUTSIDE RECORDS SUMMARY | 2025-08-17 12:53 | XMS_ITS | CCD ---
Author Organization [facility] Care Team Providers Care Laborer [facility] Name Role Phone Monica Durán Primary Care Provider HOY, NICOLETTE Admitting Unavailable HOY, NICOLETTE Attending Unavailable HOY, NICOLETTE Consulting Unavailable HOY, NICOLETTE Attending Unavailable HOY, NICOLETTE Admitting Unavailable Luis Armando ACTIVE DIRECTORY ADMINISTRATOR - MEASUREMENT ADVISORMonica Primary Care Provide r Luis Armando ACTIVE DIRECTORY ADMINISTRATOR - MEASUREMENT ADVISORMonica Primary Care Provide r MONICA DURÁN Referring [...] Unavailable LEENA, PASQUALE A Attending Unavailable Lana, VENETIAN BLIND WORKER Emily L Attending Unavailable Lana, VENETIAN BLIND WORKER Emily L Admitting Unavailable Lana, Meily L Admitting Unavailable Lana, Emily L Attending [...] [No Known Medication Allergies]Propensity to adverse reactions (disorder)[facility] Repository Medications Current Medications MedicationDrug Class(es)DatesSig (Normalized)Sig (Original)amLODIPine 10 mg oral tablet (11 sources)Dihydropyridine Calcium Channel BlockerStart: 84-42-1802xljo 1 tablet by mouth once dailyamLODIPine 10 mg Tab See Instructions, TAKE ONE TABLET BY MOUTH ONCE DAILY, # 90 tab(s), Refills(s)1, Pharmacy: [facility] 185, cm, 10/14/24 7:46:00 EST, Height/Length Dosing, 121.3, kg, 10/14/24 7:46:00 EST, Weight Dosing Start Date: 10/14/24 Status: OrderedStart: 06-18-2024 take 1 tablet by mouth once dailyamLODIPine 10 mg Tab 10 mg = 1 tab(s), Oral, Daily, # 90 tab(s), Refills(s) 1, Pharmacy: [facility] 185, cm, 05/15/24 7:36:00 EDT, Height/Length Dosing, 121.8, kg, 05/15/24 7:36:00 EDT, Weight Dosing Start Date: 06/18/24 Status: OrderedStart: 91-90-7904vgyn 1 tablet by mouth once dailyamLODIPine 10 mg Tab 10 mg = 1 tab(s), Oral, Daily, # 90 tab(s), Refills(s) 0 Start Date: 10/26/23 Status: OrderedStart: 08-76-6737redu 1 tablet by mouth once dailyamLODIPine (NORVASC) 10 MG tablet Take 1 tablet by mouth daily 90 tablet 3 09/01/2022 ActiveStart: 10-64-1994dair 1 tablet by mouth once dailyamLODIPine (NORVASC) 10 MG tablet Take 1 tablet by mouth daily 90 tablet 2 01/28/2021 ActiveStart: 81-87-8026ylho 1 tablet by mouth once daily amLODIPine (NORVASC) 5 MG tablet Take 1 tablet by mouth daily 30 tablet 3 08/17/2020 Activeamoxicillin 500 mg oral capsule (1 source)Penicillin-class AntibacterialStart: 62-01-2131ccjp 1 capsule by mouth every twelve hoursamoxicillin 500 mg Cap 500 mg = 1 cap(s), Oral, q12hr, # 20 cap(s), Refills(s) 0, Pharmacy: [facility], 185, cm, 10/14/24 7:46:00 EST, [...] mg oral capsule (2 sources)Nonsteroidal Anti-inflammatory DrugStart: 88-02-9744xlfw 1 capsule by mouth twice dailycelecoxib (CELEBREX) 100 MG capsule Take 1 capsule by mouth 2 times daily 30 capsule 1 09/13/2020 Activecephalexin 500 mg oral capsule (4 sources)Cephalosporin AntibacterialStart: 55-16-5745yxdcslwqmj 500 mg Cap Refills(s) 0 Start Date: 10/26/23 Status: OrderedStart: 09-01-2022 End: 65-42-1222yirt 1 capsule by mouth four times dailycephALEXin (KEFLEX) 500 MG capsule Take 1 capsule by mouth 4 times daily for 7 days 28 capsule 0 09/08/2022 Activecholecalciferol 0.125 mg oral tablet (2 sources)Vitamin DCholecalciferol (VITAMIN D3) 125 MCG (5000 UT) TABS Take by mouth 0 Activecitalopram 20 mg oral tablet (12 sources)Serotonin Reuptake InhibitorStart: 56-46-0080wbex 10 mg by mouth once dailycitalopram 20 mg Tab 10 mg = 0.5 tab(s), Oral, Daily, # 30 tab(s), Refills(s) 0, Pharmacy: [facility] 185, cm, 04/09/24 7:36:00 EDT, Height/Length Dosing, 118.4, kg, 04/09/24 7:36:00 EDT, Weight Dosing Start Date: 04/30/24 Status: OrderedStart: 98-95-4740zwcv 10 mg by mouth once dailycitalopram 20 mg Tab 10 mg = 0.5 tab(s), Oral, Daily, # 45 tab(s), Refills(s) 0 Start Date: 10/26/23 Status: OrderedStart: 60-77-3755sdnl 0.5 tablet by mouth once daily citalopram (CELEXA) 20 MG tablet TAKE ONE-HALF (1/2) TABLET BY MOUTH DAILY 30 tablet 0 09/02/2022 ActiveStart: 36-38-7084syks 0.5 tablet by mouth once daily citalopram (CELEXA) 20 MG tablet TAKE 1/2 TABLET BY MOUTH ONE TIME DAILY 45 tablet 1 10/20/2020 Activetake 1 tablet by mouth once dailycitalopram (CELEXA) 20 MG tablet Take 20 mg by mouth daily 0 Activeenalapril maleate 20 mg oral tablet (10 sources)Angiotensin Converting Enzyme InhibitorStart: 40-19-4314ppgo 1 tablet by mouth once dailyenalapril 20 mg Tab 20 mg = 1 tab(s), Oral, Daily, # 90 tab(s), Refills(s) 1, Pharmacy: [facility] 185, cm, 10/14/24 7:46:00 EST, Height/Length Dosing, 121.3, kg, 10/14/24 7:46:00 EST,Weight Dosing Start Date: 10/14/24 Status: OrderedStart: 92-36-0631cyas 1 tablet by mouth once dailyenalapril 10 mg Tab 10 mg = 1 tab(s), Oral, Daily, # 30 tab(s), Refills(s) 0, Pharmacy: [facility], 185, cm, 07/10/24 7:24:00 EDT, Height/Length Dosing, 119.9, kg, 07/10/24 7:24:00 EDT, Weight Dosing Start Date: 07/10/24 Status: OrderedStart: 43-08-9072gsvj 1 tablet by mouth once daily enalapril 20 mg Tab 20 mg = 1 tab(s), Oral, Daily, # 90 tab(s), Refills(s) 1, Pharmacy: [facility], [facility] 185, cm, 05/15/24 7:36:00 EDT, Height/Length Dosing, 121.8, kg, 05/15/24 7:36:00 EDT,Weight Dosing Start Date: 06/18/24 Status: OrderedStart: 24-65-1764cwhe 1 tablet by mouth once dailyenalapril 5 mg Tab 5 mg = 1 tab(s), Oral, Daily, # 30 tab(s), Refills(s) 0, Pharmacy: [facility], 185, cm, 02/19/24 7:35:00 EDT, Height/Length Dosing, 119.7, kg, 02/19/24 7:35:00 EDT,Weight Dosing Start Date: 02/19/24 Status: OrderedStart: 12-14-7117iudm 1 tablet by mouth once dailyenalapril 2.5 mg Tab 2.5 mg = 1 tab(s), Oral, Daily, # 90 tab(s), Refills(s) 0 Start Date: 10/26/23 Status: OrderedStart: 05-54-3081hqlh 1 tablet by mouth once dailyenalapril (VASOTEC) 2.5 MG tablet Take 1 tablet by mouth daily 90 tablet 3 09/01/2022 Activefluconazole 100 mg oral tablet (1 source)Azole AntifungalStart: 02-19-2024 End: 72-00-8766qaeu 1 tablet by mouth once dailyfluconazole 100 mg Tab 100 mg = 1 tab(s), Oral, Daily, X 7 day(s), # 7 tab(s), Refills(s) 0, Pharmacy: [facility], 185, cm, 02/19/24 7:35:00 EDT, Height/Length [...] hr extended release oral tablet (2 sources)SulfonylureaStart: 76-65-1409vwmk 1 tablet by mouth once daily glipiZIDE 10 mg ER Tab 10 mg = 1 tab(s), Oral, Daily, # 90 tab(s), Refills(s) 1, Pharmacy: [facility] 185, cm, 10/14/24 7:46:00 EST, Height/Length Dosing, 121.3, kg, 10/14/24 7:46:00 EST, Weight Dosing Start Date: 10/14/24 Status: OrderedStart: 76-12-1331ftoe 1 tablet by mouth once dailyglipiZIDE 5 mg ER Tab 5 mg = 1 tab(s), Oral, Daily, # 90 tab(s), Refills(s) 1, Pharmacy: [facility] 185, cm, 05/15/24 7:36:00 EDT, Height/Length Dosing, 121.8, kg, 05/15/24 7:36:00 EDT, Weight Dosing Start Date: 06/18/24 Status: OrderedlamoTRIgine 100 mg oral tablet (3 sources)Mood Stabilizer, Anti-epileptic Agenttake 1 tablet by mouth once dailylamoTRIgine (LAMICTAL) 100 MG tablet Take 100 mg by mouth daily 0 Active metFORMIN hydrochloride 1000 mg oral tablet (12 sources)BiguanideStart: 89-35-8212zfov 1 tablet by mouth twice daily metformin 1000 mg Tab See Instructions, TAKE ONE TABLET BY MOUTH TWICE A DAY, # 180 tab(s), Refills(s) 1, [facility] 185, cm, 10/14/24 7:46:00 EST, Height/Length Dosing, 121.3, kg, 10/14/24 7:46:00 EST, Weight Dosing Start Date: 10/14/24 Status: OrderedStart: 94-69-9350axxb 1 tablet by mouth twice dailymetformin 1000 mg Tab 1,000 mg = 1 tab(s), Oral, BID, # 60 tab(s), Refills(s) 0, Pharmacy: [facility], 185, cm, 04/09/24 7:36:00 EDT, Height/Length Dosing, 118.4, kg, 04/09/24 7:36:00EDT, Weight Dosing Start Date: 05/02/24 Status: OrderedStart: 05-19-3155qulo 1 tablet by mouth twice dailymetformin 1000 mg Tab 1,000 mg = 1 tab(s), Oral, BID, # 180 tab(s), Refills(s) 0 Start Date: 10/26/23Status: OrderedStart: 68-72-1219riqq 1 tablet by mouth twice daily at mealtimemetFORMIN (GLUCOPHAGE) 1000 MG tablet Take 1 tablet by mouth 2 times daily (with meals) 90 tablet Activetake 1 tablet by mouth twice daily at mealtimemetFORMIN (GLUCOPHAGE) 1000 MG tablet Take 1,000 mg by mouth 2 times daily (with meals) 0 Activemupirocin 0.02 mg/mg topical ointment (4 sources)RNA Synthetase Inhibitor AntibacterialStart: 06-64-6419guvhqbsop Top 2% Oint Refill(s) 0 Start Date: 10/26/23 Status: Otzuljz83 hr nicotine 0.875 mg/hr transdermal system (3 sources)Cholinergic Nicotinic AgonistStart: 07-21-2020 End: 09-66-5784qxxxd 1 dose transdermal route once dailynicotine (NICODERM CQ) 21 MG/24HR Place 1 patch onto the skin daily 42 patch 0 07/21/2020 Active omeprazole 20 mg delayed release oral capsule (9 sources)Proton Pump InhibitorStart: 44-07-1727tomg 1 capsule by mouth once dailyomeprazole 20 mg Cap-DR See Instructions, TAKE ONE CAPSULE BY MOUTH EVERY DAY, # 30 cap(s), Refills(s) 0, Pharmacy: [facility], 185, cm, 08/15/24 8:05:00 EST, Height/Length Dosing, 119.1, kg, 08/15/24 8:05:00 EST, Weight Dosing Start Date: 09/15/24 Status: OrderedStart: 95-26-7930xnow 1 capsule by mouth once dailyomeprazole 20 mg Cap-DR 20 mg = 1 cap(s), Oral, Daily, # 30 cap(s), Refills(s) 0, Pharmacy: [facility], 185, cm, 04/09/24 7:36:00 EDT, Height/Length Dosing, 118.4, kg, 04/09/24 7:36:00 EDT, Weight Dosing Start Date: 04/30/24 Status: OrderedStart: 55-62-3017xhqn 1 capsule by mouth once daily before breakfastomeprazole 20 mg Cap-DR 20 mg = 1 cap(s), Oral, Daily, before breakfast, # 90 cap(s), Refills(s) 0 Start Date: 10/26/23 Status: OrderedStart: 54-67-8865llbx 1 capsule by mouth once daily before breakfastomeprazole (PRILOSEC) 20 MG delayed release capsule TAKE 1 CAPSULE BY MOUTH ONE TIME A DAY BEFORE BREAKFAST 90 capsule 3 09/01/2022 ActiveStart: 43-31-5756yssh 1 capsule by mouth once daily before breakfastomeprazole (PRILOSEC) 20 MG delayed release capsule Take 1 capsule by mouth every morning (before breakfast) 90 capsule 1 01/28/2021 Activepioglitazone 45 mg oral tablet (12 sources)Peroxisome Proliferator Receptor alpha Agonist, Peroxisome Proliferator Receptor gamma Agonist, ThiazolidinedioneStart: 78-49-3436jnhh 1 tablet by mouth once dailypioglitazone 45 mg Tab 45 mg = 1 tab(s), Oral, Daily, # 90 tab(s), Refills(s) 1, Pharmacy: [facility], 185, cm, 10/14/24 7:46:00 EST, Height/Length Dosing, 121.3, kg, 10/14/24 7:46:00 EST, Weight Dosing Start Date: 10/14/24 Status: OrderedStart: 22-91-3041azro 1 tablet by mouth once dailypioglitazone 45 mg Tab 45 mg = 1 tab(s), Oral, Daily, # 90 tab(s), Refills(s) 0, Pharmacy: [facility], 185, cm, 05/15/24 7:36:00 EDT, Height/Length Dosing, 121.8, kg, 05/15/24 7:36:00EDT, Weight Dosing Start Date: 06/24/24 Status: OrderedStart: 31-18-7850lmem 1 tablet by mouth once dailypioglitazone 45 mg Tab 45 mg = 1 tab(s), Oral, Daily, # 90 tab(s), Refills(s) 1, Pharmacy: [facility], 185, cm, 02/19/24 7:35:00 EDT, Height/Length Dosing, 119.7, kg, 02/19/24 7:35:00EDT, Weight Dosing Start Date: 02/19/24 Status: OrderedStart: 79-92-7390gggq 1 tablet by mouth once daily pioglitazone 45 mg Tab 45 mg = 1 tab(s), Oral, Daily, # 90 tab(s), Refills(s) 0 Start Date: 10/26/23 Status: OrderedStart: 99-36-3179sqxc 1 tablet by mouth once dailypioglitazone (ACTOS) 45 MG tablet TAKE 1 TABLET BY MOUTH ONE TIME DAILY 90 tablet 3 09/01/2022 Activetake 1 tablet by mouth once dailypioglitazone (ACTOS) 30 MG tablet Take 30 mg by mouth daily 0 Activesildenafil 100 mg oral tablet (2 sources)Phosphodiesterase 5 InhibitorStart: 36-64-3456trlh 1 tablet by mouth every hour as needed, then take 1 tablet by mouth every twenty-four hours as neededsildenafil (VIAGRA) 100 MG tablet Take 1 tablet by mouth as needed for Erectile Dysfunction 1 hour prior to sexual activity. Do not exceed more than 1 dose in 24 hours. 30 tablet 1 09/01/2022 Activesimvastatin 20 mg oral tablet (12 sources)HMG-CoA Reductase InhibitorStart: 82-10-8963jyww 1 tablet by mouth once dailysimvastatin 20 mg Tab See Instructions, TAKE ONE TABLET BY MOUTH EVERY DAY, # 90 tab(s), Refills(s)1, [facility], 185, cm, 10/14/24 7:46:00 EST, Height/Length Dosing, 121.3, kg, 10/14/24 7:46:00 EST, Weight Dosing Start Date: 10/14/24 Status: OrderedStart: 01-02-2759ujnv 1 tablet by mouth once dailysimvastatin 20 mg Tab 20 mg = 1 tab(s), Oral, Daily, # 90 tab(s), Refills(s) 1, Pharmacy: [facility], 185, cm, 05/15/24 7:36:00 EDT, Height/Length Dosing, 121.8, kg, 05/15/24 7:36:00 EDT, Weight Dosing Start Date: 06/18/24 Status: OrderedStart: 17-05-9231vfnq 1 tablet by mouth once dailysimvastatin 20 mg Tab 20 mg = 1 tab(s), Oral, Daily, # 90 tab(s), Refills(s) 0 Start Date: 10/26/23 Status: OrderedStart: 21-54-5798dqmp 1 tablet by mouth once dailysimvastatin (ZOCOR) 20 MG tablet Take 1 tablet by mouth daily 90 tablet 3 09/01/2022 ActiveStart: 13-05-3020occqungyetv (ZOCOR) 20 MG tabletSITagliptin 100 mg oral tablet (10 sources)Dipeptidyl Peptidase 4 InhibitorStart: 60-49-4163nfzj 1 tablet by mouth once dailyJanuvia 100 mg Tab 100 mg = 1 tab(s), Oral, Daily, # 90 tab(s), Refills(s) 1, Pharmacy: [facility], 185, cm, 02/19/24 7:35:00 EDT, Height/Length Dosing, 119.7, kg, 02/19/24 7:35:00 EDT, Weight Dosing Start Date: 02/19/24 Status: OrderedStart: 38-12-6774insq 1 tablet by mouth once daily Januvia 100 mg Tab 100 mg = 1 tab(s), Oral, Daily, # 90 tab(s), Refills(s) 0 Start Date: 10/26/23 Status: OrderedStart: 49-74-2399wjaw 1 tablet by mouth once dailySITagliptin (JANUVIA) 100 MG tablet Take 1 tablet by mouth daily 90 tablet 3 09/01/2022 ActiveStart: 70-91-6287nmfc 1 tablet by mouth once dailySITagliptin (JANUVIA) 100 MG tablet Take 1 tablet by mouth daily 90 tablet 0 01/14/2021 ActiveStart: 61-15-1003EPUORMY 100 MG tabletsulfamethoxazole 400 mg / trimethoprim 80 mg oral tablet (4 sources)Dihydrofolate Reductase Inhibitor Antibacterial, Sulfonamide AntimicrobialStart: 61-18-2447Oexofmz 400 mg-80 mg Tab Refill(s) 0 Start Date: 10/26/23 Status: Orderedzinc gluconate 50 mg oral tablet (2 sources)take 1 tablet by mouth once dailyzinc gluconate 50 MG tablet Take 50 mg by mouth daily 0 Active Problems Active Problems Problem ClassificationProblemDateDocumented DateEpisodic/ChronicAnxiety disorders (5 sources)Anxiety; Translations: [Anxiety disorder, unspecified]Onset: 888358-16-1085TonjtbhZbrlvcib mellitus without complication (17 sources)Type 2 diabetes mellitus without complication; Translations: [Type 2 diabetes mellitus without complications]Onset: 790360-19-8379Qvepwut Disorders of lipid metabolism (13 sources)Hyperlipidemia; Translations: [Other hyperlipidemia]Onset: 223233-71-4301GcbsiejPvewsrygh hypertension (14 sources)Essential hypertension; Translations: [Essential (primary) hypertension]Onset: 797423-10-1158FnjqbybAjcj disorders (11 sources)Depressive disorder; Translations: [Major depressive disorder, single episode, unspecified]Onset: 775080-83-0259ZwhrskeWzuoy aftercare (1 source)Other medical terminologist (current) drug therapy; Translations: [OTH PHYSIATRIST 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]Onset: 94-47-1051GmhykvnlHmllm male genital disorders (2 sources)Male erectile dysfunction, unspecified; Translations: [Impotence of organic origin]Onset: 90-57-8399CvrorzbWctli nervous system disorders (1 source)Paige's palsy; 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]Onset: 23-81-7027Fgunsrec Other nutritional; endocrine; and metabolic disorders (1 source)Obesity; Translations: [Other obesity due to excess calories]Onset: 76-98-5025KcmwztbRyvnh nutritional; endocrine; and metabolic disorders (1 source)Obese class II; Translations: [Body mass index (BMI) 35.0-35.9, adult] Onset: 82-09-7049DotsagoLnosy nutritional; endocrine; and metabolic disorders (8 sources)Body mass index 30+ - vgoblwj67-19-9668KerzmnuElwxv nutritional; endocrine; and metabolic disorders (5 sources)Obesity caused by energy tubavgzge98-53-4790XxihtbrIcysfpfz codes; unclassified (2 sources)Nicotine-filled electronic cigarette eakk72-11-9501UitaeodqCrqpryxje and history of mental health and substance abuse codes (2 sources)Tobacco use and exposure - finding; Translations: [Tobacco use]Onset: 508900-17-6437TqfthajJuzm and subcutaneous tissue infections (9 sources)Abscess of face; Translations: [Cutaneous abscess of face]Onset: 89-02-5469Xfdeslew Past or Other Problems Problem ClassificationProblemDateDocumented DateEpisodic/ChronicNonspecific chest pain (4 sources)Right sided chest pain; Translations: [Non-cardiac chest pain]Onset: 678280-41-4916CldezjfiSpnbolkw codes; unclassified (3 sources)Tobacco use and exposure - finding; Translations: [Tobacco use]Onset: 421462-46-5808CauvwssxCtgptmztnpi; intervertebral disc disorders; other back problems (3 sources)Acute thoracic back pain; Translations: [Pain in thoracic spine] Onset: 608128-12-7421Bebqsabj Results Test NameValueInterpretationReference RangeFacilityAmbulatory Visit Summaryon 83-03-0718Euyrjketil Visit SummaryAmbulatory Visit Summary SULTANA JOSHUA :1980 [...] 8:40 AM EST With: Emily Maurice Where: [address] [address]- Sunday2025 8:20 AM EST With: Emily Maurice Where: [address] [address]- Medications What How Much When [...] signed up for this yet, please contact [employer] at [phone] to get signed up today. Language Information Language assistance services are available as needed. [facility]/Clinic Noteon [id number] Medicine Office/Clinic NoteB[facility]/Cl[facility] HPI Staff Pt [...] MED In 4 weeks 07/07/2025 EDT [address] [place] [address]- Business (1) Additional Instructions: 4 weeks shoulder pain Emily Maurice FAM, MED In 3 months [address] [place] [address]- Additional Instructions: 3 months diabetes [...] 23-valent vaccine 11/07/2021 Recorded 2023-10-26: VIS DATE: 07/16/2019NoOhioHealth Southeastern Medical CenterComment on above:Result Comment: Electronically Signed By: Emily Maurice\.br\Date and Time Signed: 07/21/25 09:28 QGKEziV4fjh 59-51-5503UqD0h (Bld) [Mass fraction]9.9 %High<=5.9The [facility] SystemComment on above:Performed By: #### [id number] #### [facility] [address] [place], [place] [address]Kmsljynv Letteron [id number] LetterProvider Letter July 21, 2025 SULTANA JOSHUA [address] [place] [address] : 1980 To Whom It May Concern, Please excuse above patient from work. Date of Appointment: 07/21/2025 May Return to Work On: 07/21/2025 Sincerely, [address] [address] LbeypiZdwgbdOhioHealth Southeastern Medical CenterAmbulatory Visit Summaryon 26-73-3938Fqunnuxfdd Visit SummaryAmbulatory Visit Summary SULTANA JOSHUA :1980 [...] 8:20 AM EST With: Emily Maurice Where: [address] [address]- Medications What How Much When Why Instructions New cyclobenzaprine (cyclobenzaprine 10 mg Tab) 1 Tablets By Mouth At bedtime as needed for for spasm Left shoulder pain BMI 36.0-36.9,adult Obesity (BMI 30- 39.9) Vapes nicotine containing substance Pickup at [facility] New meloxicam (meloxicam 15 mg Tab) 1 Tablets By Mouth Every day Left shoulder pain BMI 36.0-36.9,adult Obesity (BMI 30-39.9) Vapes nicotine containing substance Pickup at [facility] New methylPREDNISolone (Medrol 4 mg Tab) 1 Packets By Mouth As Directed Left shoulder pain BMI 36.0-36.9,adult Obesity (BMI 30-39.9) Vapes nicotine containing substance Duration: 6 Days as directed on package labeling Pickup at [facility] Unchanged amlodipine (amLODIPine 10 mg Tab) [...] a day (at bedtime) Hyperlipidemia [facility]: [address] [place] [place] [id number] [phone] Allergies No Known Medication Allergies Problems Ongoing [...] signed up for this yet, please contact [employer] at [phone] to get signed up today. Language Information Language assistance services are available as needed. [facility] Medicine Office/Clinic Noteon 51-07-7228Tboukh Medicine Office/Clinic NoteFasouthcoast behavioral health hospital Medicine Office/Clinic Note Chief Complaint Lt [...] spasm, # 30 tab(s), Refills(s) 0, Pharmacy: [facility], 185, cm, 06/30/25 9:11:00 EDT, Height/Length Dosing, 124.1, kg, 06/30/25 9:11:00 EDT, Weight Dosing meloxicam, 15 mg = 1 tab(s), Oral, Daily, # 30 tab(s), Refills(s) 0, Pharmacy: [facility], 185, cm, 06/30/25 9:11:00 EDT, Height/Length Dosing, 124.1, kg, 06/30/25 9:11:00 EDT, WeightDosing methylPREDNISolone, = 1 packet(s), Oral, As Directed, as directed on package labeling, X 6 day(s), # 21 tab(s), Refills(s) 0, Pharmacy: [facility], 185, cm, 06/30/25 9:11:00 EDT, Height/Length Dosing, 124.1, kg, 06/30/25 9:11:00 EDT, Weight Dosing XR Shoulder Complete Left 2. BMI 36.0-36.9,adult (Z68.36: Body mass index [BMI] 36.0-36.9, adult) BMI educatoin Ordered: cyclobenzaprine, 10 mg = 1 tab(s), Oral, Bedtime, PRN for spasm, # 30 tab(s), Refills(s) 0, Pharmacy: [facility], 185, cm, 06/30/25 9:11:00 EDT, Height/Length Dosing, 124.1, kg, 06/30/25 9:11:00 EDT, Weight Dosing meloxicam, 15 mg = 1 tab(s), Oral, Daily, # 30 tab(s), Refills(s) 0, Pharmacy: [facility], 185, cm, 06/30/25 9:11:00 EDT, Height/Length Dosing, 124.1, kg, 06/30/25 9:11:00 EDT, WeightDosing methylPREDNISolone, = 1 packet(s), Oral, As Directed, as directed on package labeling, X 6 day(s), # 21 tab(s), Refills(s) 0, Pharmacy: [facility], 185, cm, 06/30/25 9:11:00 EDT, Height/Length Dosing, 124.1, kg, 06/30/25 9:11:00 EDT, Weight Dosing XR Shoulder Complete Left 3. Obesity (BMI 30-39.9) (E66.9: Obesity, unspecified) see above Ordered: cyclobenzaprine, 10 mg = 1 tab(s), Oral, Bedtime, PRN for spasm, # 30 tab(s), Refills(s) 0, Pharmacy: [facility], 185, cm, 06/30/25 9:11:00 EDT, Height/Length Dosing, 124.1, kg, 06/30/25 9:11:00 EDT, Weight Dosing meloxicam, 15 mg = 1 tab(s), Oral, Daily, # 30 tab(s), Refills(s) 0, Pharmacy: [facility], 185, cm, 06/30/25 9:11:00 EDT, Height/Length Dosing, 124.1, kg, 06/30/25 9:11:00 EDT, WeightDosing methylPREDNISolone, = 1 packet(s), Oral, As Directed, as directed on package labeling, X 6 day(s), # 21 tab(s), Refills(s) 0, Pharmacy: [facility], 185, cm, 06/30/25 9:11:00 EDT, Height/Length Dosing, 124.1, kg, 06/30/25 9:11:00 EDT, Weight Dosing XR Shoulder Complete Left 4. Vapes nicotine containing substance (Z72.0: Tobacco use) consider not vaping Ordered: cyclobenzaprine, 10 mg = 1 tab(s), Oral, Bedtime, PRN for spasm, # 30 tab(s), Refills(s) 0, Pharmacy: [facility], 185, cm, 06/30/25 9:11:00 EDT, Height/Length Dosing, 124.1, kg, 06/30/25 9:11:00 EDT, Weight Dosing meloxicam, 15 mg = 1 tab(s), Oral, Daily, # 30 tab(s), Refills(s) 0, Pharmacy: [facility], 185, cm, 06/30/25 9:11:00 EDT, Height/Length Dosing, 124.1, kg, 06/30/25 9:11:00 EDT, WeightDosing methylPREDNISolone, = 1 packet(s), Oral, As Directed, as directed on package labeling, X 6 day(s), # 21 tab(s), Refills(s) 0, Pharmacy: [facility], 185, cm, 06/30/25 9:11:00 EDT, Height/Length Dosing, 124.1, kg, 06/30/25 9:11:00 EDT, Weight Dosing XR Shoulder Complete Left Follow-u (more content not included)...[facility] Parma Medical CenterComment on above:Result Comment: Electronically Signed By: Emily Maurice\.br\Date and Time Signed: 06/30/25 09:29 EDTProvider Letteron [phone] Letter Provider Letter June 30, 2025 SULTANA JOSHUA [address] [place] [address] : 1980 To Whom It May Concern, Please excuse above patient from work due to a doctors appointment Date of Illness: From: _ To: _ May Return to Work On:06-30-25 Restrictions: _ Comments: _ Sincerely, Family Medicine [address] [address] XgtnxgNgjcwlUniversity Hospitals Parma Medical CenterAmbulatory Visit Summaryon [id number] Visit SummaryAmbulatory Visit Summary SULTANA JOSHUA :1980 [...] AM EST With: PASQUALE STERN CNP Where: [facility] [address] [address]- Medications What How Much When Why Instructions New dulaglutide (Trulicity Pen 0.75 mg/ 0.5 mL subcutaneous solution) 0.75 Milligram Subcutaneous Every week Diabetes BMI 36.0-36.9,adult Obesity (BMI 30- 39.9) Vapes nicotine containing substance Tobacco use Refills: 2 Pickup at [facility]/pharmacy #[id number] Unchanged amlodipine (amLODIPine 10 mg Tab) [...] a day (at bedtime) Hyperlipidemia Pharmacy Information [facility]/pharmacy #[id number]: [address], [place] [id number] [phone] Allergies No Known Medication Allergies Problems Ongoing [...] yet, please contact Health Information Management at [phone] to get signed up today. Language Information Language assistance services are available as needed. [facility] Office/Clinic Noteon [id number] Medicine Office/Clinic NoteP[facility] Chief Complaint Discuss diabetes [...] qWeek, # 2 mL, Refills(s) 2, Pharmacy: [facility]/pharmacy #[id number], 185,cm, 05/14/25 8:43:00 EDT, Height/Length Dosing, 124.5, kg, 05/14/25 8:43:00 EDT, Weight Dosing 2. BMI 36.0-36.9,adult (Z68.36: Body mass index [BMI] 36.0-36.9, adult) BMI 36.38 Ordered: dulaglutide, 0.75 mg, SubCutaneous, qWeek, # 2 mL, Refills(s) 2, Pharmacy: [facility]/pharmacy #[id number], 185,cm, 05/14/25 8:43:00 EDT, Height/Length Dosing, 124.5, kg, 05/14/25 8:43:00 EDT, Weight Dosing 3. Obesity (BMI 30-39.9) (E66.9: Obesity, unspecified) - Continue dietary management with a focus on protein-rich foods and low-calorie beverages. Ordered: dulaglutide, 0.75 mg, SubCutaneous, qWeek, # 2 mL, Refills(s) 2, Pharmacy: [facility]/pharmacy #[id number], 185,cm, 05/14/25 8:43:00 EDT, Height/Length Dosing, 124.5, kg, 05/14/25 8:43:00 EDT, Weight Dosing 4. Vapes nicotine containing substance, (Z72.0: Tobacco use)Tobacco use - Discuss potential cessation strategies for vaping nicotine-containing substances. Ordered: dulaglutide, 0.75 mg, SubCutaneous, qWeek, # 2 mL, Refills(s) 2, Pharmacy: [facility]/pharmacy #[id number], 185,cm, 05/14/25 8:43:00 EDT, Height/Length Dosing, [...] refills Glucometer, See Instru (more content not included)...[facility] CenterComment on above:Result Comment: Electronically Signed By: PASQUALE STERN CNP\.br\Date and Time Signed: 05/14/25 09:19 EDTAmbulatory Visit Summaryon 56-52-1659Vkscqnttth Visit SummaryAmbulatory Visit Summary SULTANA JOSHUA :1980 [...] 6 months Comments: Diabetes & HTN Where: [address] [place] [phone] [facility] (1) You Need to Complete [...] Capsules By Mouth Every day Pickup at [facility] #72 Changed simvastatin (simvastatin 20 mg Tab) 1 Tablets By Mouth Once a day (at bedtime) Pickup at [facility] #72 Unchanged enalapril (enalapril 20 mg Tab) 1 Tablets By Mouth Every day [facility]) [facility] Unchanged amlodipine (amLODIPine 10 mg [...] physician if questions or concerns Pharmacy [facility] #[facility]: [address], [place] [id number] [phone] What How Much When Why Comments Stop [...] diabetes, you shabnam (more content not included)...NormalFisher [facility] w/ Auto Diffon 49-14-5593Umspgxav Absolute0.0 E9/LNormal 0.0-0.2Fisher [facility] CenterComment on above:Performed By: #### [id number] #### [facility] [address], [place] [address]Jqacxwawy/100 WBC (Bld)0.7 %Normal0.0-2.0The [facility] SystemComment on above:Performed By: #### [id number] #### [facility] [address] [place] [address]Zte Absolute0.2 E9/LNormal0.0-0.5FSelect Medical Specialty Hospital [facility], Inc Comment on above:Performed By: #### [id number] #### [facility] [address] [place] [address]Avpymmhcfvn/100 WBC (Bld)4.1 %Normal0.0-8.0The [facility] SystemComment on above:Performed By: #### [id number] #### [facility] [address] [place] [address]Vxeluucacie distribution width (RBC) [Ratio]13.6 %Normal 10.9-14.2FSelect Medical Specialty Hospital - Board[facility], IncComment on above:Performed By: #### [id number] #### [facility] [address] [place] [address]Tvwfigzpwb (Bld) [Volume fraction]47.8 %Ypemzo54.7-49.0The [facility] SystemComment on above:Performed By: #### [id number] #### [facility] [address] [place] [address]Dhbovhscms (Bld) [Mass/Vol]16.6 g/vASvjmii26.5-17.5FSelect Medical Specialty Hospital [facility], IncComment on above:Performed By: #### [id number] #### [facility] [address] [place] [address]Jjsnr Absolute1.8 E9/LNormal1.0-4.0[facility] Comment on above:Performed By: #### [id number] #### [facility] [address], [place] [address]Cgnjdojzyka/100 WBC (Bld)40.6 %Xzemcv15.0-50.0The [facility] SystemComment on above:Performed By: #### [id number] #### [facility] [address], [place] [address]OSI (RBC) [Entitic mass]33.3 vgVhtqlk52.0-34.0The [facility] SystemComment on above:Performed By: #### [id number] #### [facility] [address] [place] [address]RQZH (RBC) [Mass/Vol]34.7 g/hKDboars29.4-36.0The [facility] SystemComment on above:Performed By: #### [id number] #### [facility] [address] [place] [address]DRA (RBC) [Entitic vol]96.2 uOLxxrhd84.0-100.0The [facility] SystemComment on above:Performed By: #### [id number] #### [facility] [address] [place] [address]Inec Absolute0.4 E9/LNormal0.2-1.0[facility] Comment on above:Performed By: #### [id number] #### [facility] [address] [place] [address]Htnwzgrzk/100 WBC (Bld)9.1 %Normal4.0-14.0The [facility] SystemComment on above:Performed By: #### [id number] #### [facility] [address] [place] [address]Lsxgdf Absolute2.0 E9/LNormal2.0-7.5FSelect Medical Specialty Hospital [facility], Inc Comment on above:Performed By: #### [id number] #### [facility] [address] [place] [address]Aqkcvu Auto45.5 %Fffdjk56.0-75.0[facility] Comment on above:Performed By: #### [id number] #### [facility] [address] [place] [address]Xopvcnqa555.0 E9/LTllcby495.0-500.0[facility] Comment on above:Performed By: #### [id number] #### [facility] [address], [place] [address]Qrevwpft mean volume (Bld) [Entitic vol]8.8 fLNormal6.4-10.8 The [facility] SystemComment on above:Performed By: #### [id number] #### [facility] [address], [place] [address]PVS5.0 E12/LNormal4.3-5.9The [facility] SystemComment on above:Performed By: #### [id number] #### [facility] [address], [place] [address]HIA3.5 E9/LNormal4.0-11.0The [facility] SystemComment on above:Performed By: #### [id number] #### [facility] [address], [place] [address]WSPgh 71-09-4179Sebdxmu [Mass/Vol]4.8 g/dLNormal3.3-5.0The [facility] SystemComment on above:Performed By: #### [id number] #### [facility] [address] [place] [address]Kkmsbcv/Globulin [Mass ratio]1.7 {ratio}Normal1.1-2.2FSelect Medical Specialty Hospital - [facility], IncComment on above:Performed By: #### [id number] #### [facility] [address], [place] [address]Tup Phos52 Int._Unit/DMxtcyr21-65EfcrogThe [facility] System Comment on above:Performed By: #### [id number] #### [facility] [address], [place] [address]ZOK06 Int._Unit/LHigh6-46The [facility] SystemComment on above:Performed By: #### [id number] #### [facility] [address], [place] [address]Ymdub gap [Moles/Vol]14 mmol/LNormal6-16The [facility] SystemComment on above:Performed By: #### [id number] #### [facility] [address], [place] [address]ZIP58 Int._Unit/LNormal5-43The [facility] SystemComment on above:Performed By: #### [id number] #### [facility] [address], [place] [address]Oycm Total0.7 mg/dLNormal0.0-1.1FSelect Medical Specialty Hospital [facility], Inc Comment on above:Performed By: #### [id number] #### [facility] [address], [place] [address]YNI/Creat Ratio20 No VairpWtvkyy62-38VnpdfnThe Metrohealth SystemComment on above:Performed By: #### [id number] #### [facility] [address], [place] [address]Qpavqnk [Mass/Vol]10.2 mg/dLNormal8.9-11.1FSelect Medical Specialty Hospital - Board[facility], IncComment on above:Performed By: #### [id number] #### [facility] [address], [place] [address]Lszzlxhh [Moles/Vol]100 mmol/ZLbh185-806OlwgwjThe Metrohealth SystemComment on above:Performed By: #### [id number] #### [facility] [address], [place] [address]YI5 [Moles/Vol]25 mmol/PLxmzly11-96QsdzaxThe [facility] System Comment on above:Performed By: #### [id number] #### [facility] [address], [place] [address]Cxrxwnwtsk [Mass/Vol]1.2 mg/dLNormal0.5-1.3FSelect Medical Specialty Hospital - Board[facility], IncComment on above:Performed By: #### [id number] #### [facility] [address], [place] [address]Wwzjwsfw (S) [Mass/Vol]2.9 g/dLNormal1.4-4.0The [facility] SystemComment on above:Performed By: #### [id number] #### [facility] [address], [place] [address]Miwhoww [Mass/Vol]279 mg/mMAuni34-739GjdyiqThe Metrohealth SystemComment on above:Performed By: #### [id number] #### [facility] [address], [place] [address]Bewgkmouc [Moles/Vol]4.7 mmol/LNormal3.5-5.3FSelect Medical Specialty Hospital - Board[facility], IncComment on above:Performed By: #### [id number] #### [facility] [address], [place] [address]Djvotdm [Mass/Vol]7.7 g/dLNormal6.0-7.8The [facility] SystemComment on above:Performed By: #### [id number] #### [facility] [address], [place] [address]Sqxetv [Moles/Vol]134 mmol/NOjy245-561RoihwmThe Metrohealth SystemComment on above:Performed By: #### [id number] #### [facility] [address], [place] [address]Uesx nitrogen [Mass/Vol]24 mg/dLHigh5-21The Metrohealth SystemComment on above:Performed By: #### [id number] #### [facility] [address], [place] [address]K[facility] Office/Clinic Noteon 12-36-4818Ypijfn Medicine Office/Clinic NoteFasouthcoast behavioral health hospital Medicine Office/Clinic Note Chief Complaint The patient is concerned about diabetes management and medication costs. [facility] Staff Pt presents today for 3m follow [...] diabetes control. - [facility] and potential insurance coverage for alternatives. - Reviewed patient blood sugar log - Encourage low carb diet and daily exercise - Continue glipizide 10 mf, MetFormin 100 mg, and pioglitazone 45 mg- no refills today - F/U in 3-6 months pending laboratory results Ordered: CBC w/ Auto Diff Comprehensive Metabolic Panel HgbA1c Lab Specimen Collect 97470 Urine Microalbumin/Creatinine Ratio 2. HTN (hypertension) (I10: Essential (primary) hypertension) - Continue current antihypertensive medications: amlodipine and enalapril. Ordered: enalapril, 20 mg = 1 tab(s), Oral, Daily, # 90 tab(s), Refills(s) 1, Pharmacy: [facility] #[facility], 185, cm, 04/07/25 8:47:00 EDT, Height/Length Dosing, 122.4, kg, 04/07/25 8:47:00 EDT, WeightDosing CBC w/ Auto Diff Comprehensive Metabolic Panel Lipid Panel 3. Hyperlipidemia (E78.5: Hyperlipidemia, unspecified) - Plan to check cholesterol levels during this visit. Ordered: Lab Specimen Collect 06451 Lipid Panel 4. Depression, unspecified (F32.A) - [...] smoker (Z87.891: Personal history of nicotine dependence) [facility] (more content not included)...NormalThe Metrohealth SystemComment on above:Result Comment: Electronically Signed By: PASQUALE STERN CNP\.shekhar\Date and Time Signed: 04/07/25 09:30 OWMOmiO3nsu 17-98-7629AqV3j (Bld) [Mass fraction]7.9 %High<=5.9The [facility] SystemComment on above: Performed By: #### [id number] #### [facility] [address], [place] [address]Idthi Panelon 17-81-2706Qwqvyhqfzzw [Mass/Vol]196 mg/dLNormal 120-200The [facility]health SystemComment on above:Performed By: #### [id number] #### [facility] [address], [place] [address]Bghdwlcetzl in HDL [Mass/Vol]36 mg/dLInvalid Interpretation CodeThe Metrohealth SystemComment on above:Result Comment: '>= 60 LOW RISK' '<= 40 HIGH RISK'Performed By: #### [id number] #### [facility] [address], [place] [address]Bmfivkrmuya in LDL [Mass/Vol]104 mg/dLNormal<=129The [facility] SystemComment on above:Performed By: #### [id number] #### [facility] [address], [place] [address]Aqmyjkeejgk in VLDL [Mass/Vol]74 mg/dLHigh7-40The [facility] SystemComment on above:Performed By: #### [id number] #### [facility] [address], [place] [address]Rnmljnnogqlo [Mass/Vol]370 mg/dLHigh<=149The [facility]health SystemComment on above:Performed By: #### [id number] #### [facility] [address], [place] [address]LMZ Screen, Totalon 05-83-3854QZT Scrn Tot.0.3 ng/mLNormal 0.1-3.5FSelect Medical Specialty Hospital - Board[facility], IncComment on above:Result Comment: The concentration of PSA determined by different manufacturers can vary due to diffe rences in assay methods and reagent specificity. Values obtained from different assay methods cannot be used interchangeably. The methodology used for this result was chemiluminescence using [employer] Access Hybritech PSA reagent.Performed By: #### [id number] #### [facility] [address], [place] [address]U MA/Cr Ratioon 16-07-7923Ffrhvaws/Cr Wirma170.3 mg/gm CrHigh .0-30.0The Metrohealth SystemComment on above:Result Comment: 30-300 mg/g Cr indicates an increased risk for diabetic nephropathy. >300 mg/g Cr is consistent with clinical nephropathy.Performed By: #### [id number] #### [facility] [address], [place] [address]E Oualjcmesg30.7 mg/dLInvalid Interpretation CodeThe Metrohealth SystemComment on above:Performed By: #### [id number] #### [facility] [address], [place] [address]J Puwsojrk96.4 mg/dLHigh0.0-1.9[facility] Comment on above:Result Comment: Result Verified by DilutionPerformed By: #### [id number] #### [facility] [address], [place] [address]aNBLvc 28-21-2117cWBU68 mL/min/1.73 y5Rdigiz>=59The [facility] SystemComment on above:Performed By: #### [id number] #### [facility] [address] [place], [place] [address]Jywpwhjuvb Visit Summaryon 98-06-0017Ydcibscopm Visit Summary Ambulatory Visit Summary SULTANA JOSHUA [...] AM EDT With: PASQUALE STERN CNP Where: [address] [address]- Medications What How Much When Why Instructions Changed enalapril (enalapril 20 mg Tab) 1 Tablets By Mouth Every day HTN (hypertension) Pickup at [facility]. Changed glipiZIDE (glipiZIDE 10 mg ER Tab) 1 Tablets By Mouth Every day Diabetes Pickup at [facility]. Unchanged amlodipine (amLODIPine 10 mg Tab) See instructions HTN (hypertension) TAKE ONE TABLET BY MOUTH ONCE DAILY Pickup at [facility]. Unchanged metformin (metformin 1000 mg Tab) See instructions Diabetes TAKE ONE TABLET BY MOUTH TWICE A DAY [facility]changed pioglitazone (pioglitazone 45 mg Tab) 1 Tablets By Mouth Every day Diabetes Pickup at [facility]. Unchanged simvastatin (simvastatin 20 mg Tab) See instructions Hyperlipidemia TAKE ONE TABLET BY MOUTH EVERY DAY [facility]. Unchanged citalopram (citalopram 20 mg Tab) 0.5 Tablets By Mouth Every day Contact prescribing physician if questions or concerns Unchanged omeprazole (omeprazole 20 mg Cap-DR) See instructions TAKE ONE CAPSULE BY MOUTH EVERY DAYContact prescribing physician if questions or concerns Pharmacy Information [facility] [address] [place], [place] [id number] [phone] Allergies No Known Medication Allergies Problems Ongoing [...] you for choosing us for your care. [facility] CenterCHEMISTRYOrdered By: SYSTEM SYSTEM on 23-75-1401Znhadpn [Mass/Vol]4.6 g/dLNormal3.3 - 5.0 gm/dLRemisol Chem Albumin/Globulin [Mass ratio]1.6 {ratio}Normal1.1 - 2.2Remisol ChemALP [Catalytic activity/Vol]50 [iU]/xQmvram36 - 98 Int._Unit/LRemisol ChemALT No additional P-5'-P [Catalytic activity/Vol]68 [iU]/dHigh6 - 46 Int._Unit/LRemisol ChemAnion gap [Moles/Vol]12 mmol/LNormal6 - 16 mEq/LRemisol ChemAST [Catalytic activity/Vol]42 [iU]/dNormal5 - 43 Int._Unit/LRemisol ChemBilirubin [Mass/Vol] 1.1 mg/dLNormal0.0 - 1.1 mg/dLRemisol ChemCalcium [Mass/Vol]10.0 mg/dLNormal8.9 - 11.1 mg/dLRemisol ChemChloride [Moles/Vol]102 mmol/STnqlun156 - 111 mmol/L Remisol ChemCholesterol [Mass/Vol]188 mg/eLOmvtut847 - 200 mg/dLRemisol Chem Cholesterol in HDL [Mass/Vol]39 mg/dLInvalid Interpretation CodeRemisol Chem Comment on above:Result Comment: '>= 60 LOW RISK' '<= 40 HIGH RISK'Cholesterol in LDL [Mass/Vol]124 mg/dLNormal<=129mg/dLRemisol ChemCholesterol in VLDL [Mass/Vol]45 mg/dLHigh7 - 40 mg/dLRemisol ChemCO2 [Moles/Vol]27 mmol/INwrrbo91 - 31 mmol/LRemisol ChemCreatinine [Mass/Vol]1.0 mg/dLNormal0.5 - 1.3 mg/dLRemisol UatduSOQ21 mL/min/1.73 b8Crpgpe>=59mL/min/1.73 g6Efrbsyq ChemGlobulin (S) [Mass/Vol]2.8 g/dLNormal1.4 - 4.0 gm/dLRemisol Chem Glucose [Mass/Vol]273 mg/fDQhwi40 - 199 mg/dLRemisol ChemPotassium [Moles/Vol] 5.1 mmol/LNormal3.5 - 5.3 mmol/LRemisol ChemProtein [Mass/Vol]7.4 g/dLNormal6.0 - 7.8 gm/dLRemisol ChemSodium [Moles/Vol]136 mmol/PHbpsrn470 - 145 mmol/LRemisol ChemTriglyceride [Mass/Vol]226 mg/dLHigh<=149mg/dLRemisol ChemUrea nitrogen [Mass/Vol]14 mg/dLNormal5 - 21 mg/dLRemisol ChemUrea nitrogen/Creatinine [Mass ratio]14 mg/teBldprh71 - 20Remisol ChemCHEMISTRYOrdered By: Park Wills on 09-44-6933YoY1e (Bld) [Mass fraction]10.2 %High<=5.9%[facility] [place] [place] ChemAutoSSCMPon 50-06-4940Wbuddoo [Mass/Vol]4.6 g/dLNormal3.3-5.0[facility] Comment on above:Performed By: #### [id number] #### [facility] [address] [place] [address]Xmlrhxh/Globulin (S) [Mass conc ratio]1.3Jrlwxb6.1-2.2FSelect Medical Specialty Hospital - Boardman, IncComment on above:Performed By: #### [id number] #### [facility] [address], [place] [address]TDV [Catalytic activity/Vol]50 Int._Unit/FIuzsiv88-14SchngpThe Metrohealth SystemComment on above:Performed By: #### [id number] #### [facility] [address] [place] [address]UJO No additional P-5'-P [Catalytic activity/Vol]68 Int._Unit/L High6-46The Metrohealth SystemComment on above:Performed By: #### [id number] #### [facility] [address], [place] [address]Btddn gap [Moles/Vol]12 mmol/LNormal6-16The Metrohealth SystemComment on above:Performed By: #### [id number] #### [facility] [address] [place] [address] [Catalytic activity/Vol]42 Int._Unit/LNormal5-43The [facility] SystemComment on above:Performed By: #### [id number] #### [facility] [address], [place] [address]Dmabafask [Mass/Vol]1.1 mg/dLNormal0.0-1.1FSelect Medical Specialty Hospital - Board[facility], IncComment on above:Performed By: #### [id number] #### [facility] [address], [place] [address]Ooiehqf [Mass/Vol]10.0 mg/dLNormal8.9-11.1FSelect Medical Specialty Hospital - Board[facility], IncComment on above:Performed By: #### [id number] #### [facility] [address], [place] [address]Nrkgfxun [Moles/Vol]102 mmol/UIfduxr177-279VemhcsThe Metrohealth SystemComment on above:Performed By: #### [id number] #### [facility] [address], [place] [address]ST3 [Moles/Vol]27 mmol/HCmpwzf17-35QtwsouThe [facility] System Comment on above:Performed By: #### [id number] #### [facility] [address], [place] [address]Dcrzmjrehv [Mass/Vol]1.0 mg/dLNormal0.5-1.3FSelect Medical Specialty Hospital - Board[facility], IncComment on above:Performed By: #### [id number] #### [facility] [address], [place] [address]Zuamajvg (S) [Mass/Vol]2.8 g/dLNormal1.4-4.0The [facility] SystemComment on above:Performed By: #### [id number] #### [facility] [address], [place] [address]Gdtjdmp [Mass/Vol]273 mg/rLRuhg52-819WlftepThe Metrohealth SystemComment on above:Performed By: #### [id number] #### [facility] [address], [place] [address]Kcjqzcgcx [Moles/Vol]5.1 mmol/LNormal3.5-5.3FSelect Medical Specialty Hospital - Board[facility], IncComment on above:Performed By: #### [id number] #### [facility] [address], [place] [address]Iwnsfwx [Mass/Vol]7.4 g/dLNormal6.0-7.8The Metrohealth SystemComment on above:Performed By: #### [id number] #### [facility] [address], [place] [address]Udogsr [Moles/Vol]136 mmol/OAxccpm203-620NrclmcThe Metrohealth SystemComment on above:Performed By: #### [id number] #### [facility] [address], [place] [address]Gerq nitrogen [Mass/Vol]14 mg/dLNormal5-21The Metro[facility] SystemComment on above:Performed By: #### [id number] #### [facility] [address], [place] [address]Tknl nitrogen/Creatinine [Mass ratio]14 No LxvejRyuhnr81-71 The [facility] SystemComment on above:Performed By: #### [id number] #### [facility] [address], [place] [address]Bdoqse Medicine Office/Clinic Noteon 98-28-3809Pyjjjo Medicine Office/Clinic NoteFasouthcoast behavioral health hospital Medicine Office/Clinic Note Chief Complaint A1C follow up [facility] Staff Irma is a 43 year old [...] Daily, # 90 tab(s), Refills(s) 1, Pharmacy: [facility] 185, cm, 10/14/24 7:46:00 EST, Height/Length Dosing, 121.3, kg, 10/14/24 7:46:00 EST, Weight Dosing glipiZIDE, 10 mg = 1 tab(s), Oral, Daily, # 90 tab(s), Refills(s) 0, Pharmacy: [facility] 185, cm, 08/15/24 8:05:00 EST, Height/Length Dosing, 119.1, kg, 08/15/24 8:05:00 EST, Weight Dosing metformin, See Instructions, TAKE ONE TABLET BY MOUTH TWICE A DAY, # 180 tab(s), Refills(s) 1, Pharmacy: [facility] 185, cm, 10/14/24 7:46:00 EST, Height/Length Dosing, 121.3, kg, 10/14/24 7:46:00 EST, Weight Dosing pioglitazone, 45 mg = 1 tab(s), Oral, Daily, # 90 tab(s), Refills(s) 1, Pharmacy: [facility] 185, cm, 10/14/24 7:46:00 EST, Height/Length Dosing, 121.3, kg, 10/14/24 7:46:00 EST, Weight Dosing Comprehensive Metabolic Panel HgbA1c Lab Specimen Collect [id number] Lab Specimen Collect [id number] Lipid Panel 2. HTN (hypertension) (I10: Essential (primary) hypertension) Stable Controlled Encourage low sodium diet and exercise Amlodipine 10 mg, enalapril 20 mg refilled at today's visit Awaiting laboratory results f/u 3 months Ordered: amlodipine, See Instructions, TAKE ONE TABLET BY MOUTH ONCE DAILY, # 90 tab(s), Refills(s) 1, Pharmacy: [facility] 185, cm, 10/14/24 7:46:00 EST, Height/Length Dosing, 121.3, kg, 10/14/24 7:46:00 EST, Weight Dosing enalapril, 20 mg = 1 tab(s), Oral, Daily, # 90 tab(s), Refills(s) 1, Pharmacy: [facility] 185, cm, 10/14/24 7:46:00 EST, Height/Length Dosing, 121.3, kg, 10/14/24 7:46:00 EST, Weight Dosing enalapril, 10 mg = 1 tab(s), Oral, Daily, # 30 tab(s), Refills(s) 0, Pharmacy: [facility], 185, cm, 07/10/24 7:24:00 EDT, Height/Length Dosing, 119.9, kg, 07/10/24 7:24:00 EDT, WeightDosing glipiZIDE, 10 mg = 1 tab(s), Oral, Daily, # 30 tab(s), Refills(s) 0, Pharmacy: [facility] 185, cm, 08/15/24 8:05:00 EST, Height/Length Dosing, 11 (more content not included)...NormalThe Metrohealth SystemComment on above:Result Comment: Electronically Signed By: PASQUALE STERN CNP\Date and Time Signed: 10/14/24 08:34 AFHJezU5rxs 00-53-4155XoG9j (Bld) [Mass fraction]10.2 %High<=5.9The Metrohealth SystemComment on above:Performed By: #### [id number] #### [facility] [address] [facility], [place] [address]Ohkzk Panelon 10-29-4466Dvdtgnueauo [Mass/Vol]188 mg/dLNormal 120-200The Metrohealth SystemComment on above:Performed By: #### [id number] #### [facility] [address] [place], [place] [address]Aqqmtavsfca in HDL [Mass/Vol]39 mg/dLInvalid Interpretation CodeThe Metrohealth SystemComment on above:Result Comment: '>= 60 LOW RISK' '<= 40 HIGH RISK'Performed By: #### [id number] #### [facility] [address] [place], [place] [address]Mpmwrllhgrn in LDL [Mass/Vol]124 mg/dLNormal<=129The Metrohealth SystemComment on above:Performed By: #### [id number] #### [facility] [address] [place], [place] [address]Eqvsaeesmnq in VLDL [Mass/Vol]45 mg/dLHigh7-40The Metrohealth SystemComment on above:Performed By: #### [id number] #### [facility] [address] [place], [place] [address]Ggtoqpdhtanc [Mass/Vol]226 mg/dLHigh<=149The Metrohealth SystemComment on above:Performed By: #### [id number] #### [facility] [address] [place], [place] [address]Nsuqmma Educationon 06-40-0404Rpahuly EducationPatient EducationNormalThe Metrohealth SystemeGFRon 86-09-3576iJPP97 mL/min/1.73 m2 Normal>=59The Metrohealth SystemComment on above:Performed By: #### [id number] #### [facility] [address] [place], [place] [address]Xzseac Medicine Office/Clinic Noteon 48-35-8400Yaskfn Medicine Office/Clinic NoteFasouthcoast behavioral health hospital Medicine Office/Clinic Note Chief Complaint Follow up to BP HPI Staff Imra is a 43 year old male presenting [...] Daily, # 30 tab(s), Refills(s) 0, Pharmacy: [facility] 185, cm, 08/15/24 8:05:00 EST, Height/Length Dosing, 119.1, kg, 08/15/24 8:05:00 EST, Weight Dosing 2. Diabetes (E11.9: Type 2 diabetes mellitus without complications) Uncontrolled Ordered: glipiZIDE, 10 mg = 1 tab(s), Oral, Daily, # 30 tab(s), Refills(s) 0, Pharmacy: [facility], 185, cm, 08/15/24 8:05:00 EST, Height/Length Dosing, 119.1, kg, 08/15/24 8:05:00 EST, WeightDosing glipiZIDE, 10 mg = 1 tab(s), Oral, Daily, # 90 tab(s), Refills(s) 0, Pharmacy: [facility], 185, cm, 08/15/24 8:05:00 EST, Height/Length Dosing, [...] Daily, # 30 tab(s), Refills(s) 0, Pharmacy: [facility] 185, cm, 08/15/24 8:05:00 EST, Height/Length Dosing, [...] Daily, # 30 tab(s), Refills(s) 0, Pharmacy: [facility], 185, cm, 08/15/24 8:05:00 EST, Height/Length Dosing, [...] Daily, # 30 tab(s), Refills(s) 0, Pharmacy: [facility], 185, cm, 08/15/24 8:05:00 EST, Height/Length Dosing, 119.1, kg, 08/15/24 8:05:00 EST, Weight Dosing Follow-up No qualifying data available Patient Education Managing Your Hypertension Hypertension, Adult, Hphm-rf-Fjnl Problem List/Past Medical History Ongoing Abscess of left external cheek BMI 34.0-34.9,adult BMI 35.0-35.9,adult Depression Diabetes HTN (hypertension) Hyperlipidemia Obesity (BMI 30-39.9) Vapes nicotine containing substance Historical No qualifying data Procedure/Surgical History Anterior cruciate ligament of knee joint, Photorefractive keratectomy. Medications amLODIPine 10 mg Tab, 10 mg= 1 tab(s (more content not included)...[facility] Medical CenterComment on above:Result Comment: Electronically Signed By: PASQUALE STERN CNP\.br\Date and Time Signed: 08/15/24 08:53 ESTAmbulatory Visit Summaryon [id number] Visit SummaryAmbulatory Visit Summary SULTANA JOSHUA :1980 [...] AM EST With: PASQUALE STERN CNP Where: [facility] [address] [place] [address]- You Need to Schedule the Following Appointments Follow Up with PASQUALE STERN CNP [facility] When: Within 4 weeks Comments: HTN Where: [address] [place] [phone] Business (1) You Need to Complete the Following HgbA1c, Blood, Routine collect, 07/10/24, Order for future visit, Lab Collect, Diabetes, Print Label By Order Location Medications What How Much When Why Instructions Changed enalapril (enalapril 10 mg Tab) 1 Tablets By Mouth Every day HTN (hypertension) Pickup at [facility] Changed enalapril (enalapril 20 mg Tab) [...] Tablets By Mouth Every day [facility]: [address] [place], [place] [id number] [phone] Allergies No Known Medication Allergies Problems Ongoing [...] you for choosing us for your care. [facility] Medical CenterCHEMISTRYOrdered By: Sakina Langley on 51-22-6117NuA5f (Bld) [Mass fraction]10.4 %High<=5.9%[facility] [place] ChemAutoSS Family Medicine Office/Clinic Noteon 40-36-5320Vdvdzq Medicine Office/Clinic NoteFasouthcoast behavioral health hospital Medicine Office/Clinic Note HPI Staff Sultana [...] and daily exercise Patient declined referral to pottery decoration designer for assistance with his diet in regards to his diabetes Continue glipizide , MetFormin, & pioglitazone 45 Awaiting HgbA1C results Patient given name and number of eye doctor f/u TBD Ordered: HgbA1c Lab Specimen Collect [id number] 2. HTN (hypertension) (I10: Essential (primary) hypertension) Continue the enalapril 20 mg one tablet daily and the amlodipine 10 mg daily Add enalapril, 10 mg one tablet daily - may take with the 20 mg tablet Encourage low sodium diet & exercise f/u in 4 weeks Ordered: enalapril, 10 mg = 1 tab(s), Oral, Daily, # 30 tab(s), Refills(s) 0, Pharmacy: [facility], 185, cm, 07/10/24 7:24:00 EDT, Height/Length Dosing, 119.9, kg, 07/10/24 7:24:00 EDT, WeightDosing Lab Specimen Collect [id number] 3. Former smoker (Z87.891: Personal history of nicotine dependence) Encouraged to continue as a non-smoker Ordered: Lab Specimen Collect [id number] 4. BMI 35.0-35.9,adult (Z68.35: Body mass index [...] at subsequent visits. Ordered: Lab Specimen Collect [id number] 5. 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 Ordered: Lab Specimen Collect [id number] Follow-up With When Contact Information LEENA SALAMANCA, PASQUALE Avila, TORRES Within [address] [place] [phone] Business (1) Additional Instructions: HTN Patient [...] Tab, 5 mg= 1 (more content not included)...NormalThe Metrohealth SystemComment on above:Result Comment: Electronically Signed By: PASQUALE STERN CNP\.br\Date and Time Signed: 07/10/24 10:58 OATYwqL0aqb 07-10-2024 HbA1c (Bld) [Mass fraction]10.4 %High<=5.9The Metrohealth SystemComment on above:Performed By: #### [id number] #### [facility] [address] [place], [place] [address]Rcazgzsbnh Visit Summaryon 24-35-0413Zcavwtkmwp Visit Summary Ambulatory Visit Summary SULTANA JOSHUA [...] AM EDT With: PASQUALE STERN CNP Where: [address] [address] Medications What How Much When Why Instructions [...] you for choosing us for your care. [facility] Medicine Office/Clinic Noteon 29-80-3147Kchjnx Medicine Office/Clinic NoteB[facility] Medicine Office/Clinic Note Chief Complaint f/u [...] Daily, # 90 tab(s), Refills(s) 0, [facility], cm, 05/15/24 7:36:00 EDT, Height/Length Dosing, 121.8, kg, 05/15/24 7:36:00 EDT, Weight Dosing glipiZIDE, 5 mg = 1 tab(s), Oral, Daily, # 90 tab(s), Refills(s) 0, Pharmacy: [facility] 185, cm, 04/09/24 7:36:00 EDT, Height/Length Dosing, [...] Daily, # 90 tab(s), Refills(s) 0, Pharmacy: [facility] 185, cm, 05/15/24 7:36:00 EDT, Height/Length Dosing, [...] Daily, # 90 tab(s), Refills(s) 0, Pharmacy: [facility] 185, cm, 05/15/24 7:36:00 EDT, Height/Length Dosing, [...] Daily, # 90 tab(s), Refills(s) 0, Pharmacy: [facility] 185, cm, 05/15/24 7:36:00 EDT, Height/Length Dosing, 121.8, kg, 05/15/24 7:36:00 EDT, Weight Dosing 5. Vapes nicotine containing substance (Z72.0: Tobacco use) Ordered: enalapril, 20 mg = 1 tab(s), Oral, (more content not included)...[facility] Medical CenterComment on above:Result Comment: Electronically Signed By: PASQUALE STERN CNP\.br\Date and Time Signed: 05/15/24 08:43 EDTProvider Letteron [phone] LetterProvider Letter May 15, 2024 SULTANA JOSHUA [address] [place] [phone] : 1980 To Whom It May Concern, Please excuse above patient from work, Sultana did have an appointment this morning 05-15-24 Date of Illness: From: _ To: _ May Return to Work On:05-15-24 Restrictions: _ Comments: _ Sincerely, Family Medicine [address] [address] IefvwqNzprhwOhioHealth Southeastern Medical CenterAmbulatory Visit Summaryon 58-96-8851Ximppqqtzp Visit SummaryAmbulatory Visit Summary SULTANA JOSHUA :1980 [...] AM EDT With: PASQUALE STERN CNP Where: [place] [phone] Medications What How Much When Why Instructions [...] you for choosing us for your care. [facility] Medicine Office/Clinic Noteon 31-50-9341Hzeend Medicine Office/Clinic NoteB[facility] Medicine Office/Clinic Note HPI Staff Sultana [...] 23-valent vaccine 11/07/2021 Recorded 2023-10-26: VIS DATE: 07/16/2019[facility] Medical CenterComment on above:Result Comment: Electronically Signed By: PASQUALE STERN CNP\.br\Date and Time Signed: 04/09/24 13:10 EDTProvider Letteron [phone] LetterProvider Letter April 09, 2024 SULTANA JOSHUA [address] [place] [phone] : 1980 To Whom It May Concern, Please excuse above patient from work due to medical reasons Date of Illness: From: _04-08-24 To: _patient had appt. 04-09-24 @ 7:20 a.m. May Return to Work On:04-09-24 Restrictions: _NONE Comments: _ Sincerely, Family Medicine [address] [address] DndarjKhydzlUniversity Hospitals Parma Medical CenterAmbulatory Visit Summaryon 06-88-0281Iwjpqepdvl Visit SummaryAmbulatory Visit Summary SULTANA JOSHUA :1980 [...] AM EDT With: PASQUALE STERN CNP Where: [facility] Medicine Office/Clinic Noteon 25-44-7981Icxhhq Medicine Office/Clinic NoteB[facility] Medicine Office/Clinic Note HPI Staff Sultana [...] out and will need some to drug [place] [facility] 30 days to cover until mail [...] Daily, # 30 tab(s), Refills(s) 0, Pharmacy: [facility], 185, cm, 03/18/24 7:22:00 EDT, Height/Length Dosing, 119.9, kg, 03/18/24 7:22:00 EDT, WeightDosing omeprazole, 20 mg = 1 cap(s), Oral, Daily, # 30 cap(s), Refills(s) 0, Pharmacy: [facility], 185, cm, 03/18/24 7:22:00 EDT, Height/Length [...] breakfast, # 90 cap(s), Refills(s) 1, Pharmacy: [facility] 185, cm, 03/18/24 7:22:00 EDT, Height/Length Dosing, 119.9, kg, 03/18/24 7:22:00 EDT, Weight Dosing Follow-up With When Contact Information PASQUALE STERN CNP, FAM Within [address] [place] [phone] [facility] (1) Additional Instructions: HTN Patient Education Heart Attack, Sgfs-wm-Eerl Problem List/Past Medical History Ongoing Abscess of [...] vaccine 11/07/2021 Record (more content not included)... [facility] CenterComment on above:Result Comment: Electronically Signed By: PASQUALE STERN CNP\.br\Date and Time Signed: 03/18/24 07:59 EDT Provider Letteron [id number] LetterProvider Letter March 18, 2024 SULTANA JOSHUA [address] [place] [phone] : 1980 To Whom It May Concern, Please excuse above patient from work, Sultana did have an appointment @ 7:20 a.m. this morning with Pasquale Stern NP. Date of Illness: From: _ To: _ May Return to Work On:03-18-24 Restrictions: _ Comments: _ Sincerely, Family Medicine [address] [address] MosfmlZmzdpyOhioHealth Southeastern Medical CenterCHEMISTRYOrdered By: SYSTEM SYSTEM on 86-82-6595Wkvxxtx [Mass/Vol]4.5 g/dLNormal3.3 - 5.0 gm/dLRemisol Chem Albumin DL <= 20 mg/L (U) [Mass/Vol]91.8 mg/dLHigh0.0 - 1.9 mg/dLRemisol Chem Albumin/Globulin [Mass ratio]1.6 {ratio}Normal1.1 - 2.2Remisol ChemALP [Catalytic activity/Vol]70 [iU]/qIjacoh07 - 98 Int._Unit/LRemisol ChemALT No additional P-5'-P [Catalytic activity/Vol]97 [iU]/dHigh6 - 46 Int._Unit/LRemisol ChemAnion gap [Moles/Vol]13 mmol/LNormal6 - 16 mEq/LRemisol ChemAST [Catalytic activity/Vol]74 [iU]/dHigh5 - 43 Int._Unit/LRemisol ChemBilirubin [Mass/Vol]0.8 mg/dLNormal0.0 - 1.1 mg/dLRemisol ChemCalcium [Mass/Vol]9.3 mg/dLNormal8.9 - 11.1 mg/dLRemisol ChemChloride [Moles/Vol]100 mmol/CTwu766 - 111 mmol/LRemisol ChemCholesterol [Mass/Vol]168 mg/zAFiyryo691 - 200 mg/dLRemisol ChemCholesterol in HDL [Mass/Vol]26 mg/dLInvalid Interpretation CodeRemisol ChemComment on above:Result Comment: '>= 60 LOW RISK' '<= 40 HIGH RISK'Cholesterol in LDL [Mass/Vol]89 mg/dLNormal<=129mg/dLRemisol ChemCholesterol in VLDL [Mass/Vol]Unable to Calculate mg/dLInvalid Interpretation Code7 - 40 mg/dLRemisol ChemComment on above:Result Comment: 'UNABLE TO REPORT. TRIG > 400 mg/dl'CO2 [Moles/Vol]25 mmol/IMtaiue30 - 31 mmol/L Remisol ChemCreatinine [Mass/Vol]1.0 mg/dLNormal0.5 - 1.3 mg/dLRemisol ChemeGFR 95 mL/min/1.73 m4Mevghq>=59mL/min/1.73 o5Ljuntip ChemGlobulin (S) [Mass/Vol]2.9 g/dLNormal1.4 - 4.0 gm/dLRemisol ChemGlucose [Mass/Vol]316 mg/qPKcjb89 - 199 mg/dLRemisol ChemPotassium [Moles/Vol]4.3 mmol/LNormal3.5 - 5.3 mmol/LRemisol ChemProtein [Mass/Vol]7.4 g/dLNormal6.0 - 7.8 gm/dLRemisol Chem Protein/Creatinine (U) [Ratio]152.40 mg/gm CrNormal0.00 - 200.00 mg/gm CrRemisol ChemSodium [Moles/Vol]134 mmol/VPgz196 - 145 mmol/LRemisol ChemTriglyceride [Mass/Vol]466 mg/dLHigh<=149mg/dLRemisol ChemU Bwsuaymszr27.2 mg/dLInvalid Interpretation CodeRemisol ChemUr Total Jgipylo082.2 mg/dLInvalid Interpretation CodeRemisol ChemUrea nitrogen [Mass/Vol]16 mg/dLNormal5 - 21 mg/dLRemisol Chem Urea nitrogen/Creatinine [Mass ratio]16 mg/ujRsladl30 - 20Remisol ChemCHEMISTRY Ordered By: Chadwick Barrera on 44-42-4449YvO5w (Bld) [Mass fraction]11.5 %High <=5.9%[facility] [place] ChemAutoSSCMPon 11-34-8376Kyxwxxb [Mass/Vol]4.5 g/dLNormal3.3-5.0 The Metrohealth SystemComment on above:Performed By: #### [id number] #### [facility] [address] [place], [place] [address]Olvuown/Globulin (S) [Mass conc ratio]1.5Bvphcs8.1-2.2Fisher [facility] Baltimore Medical CenterComment on above:Performed By: #### [id number] #### [facility] [address] [place], [place] [address]HUX [Catalytic activity/Vol]70 Int._Unit/YIkbyqe75-83HbqkwnThe Metrohealth SystemComment on above:Performed By: #### [id number] #### [facility] [address] [place], [place] [address]FTY No additional P-5'-P [Catalytic activity/Vol]97 Int._Unit/L High6-46The Metrohealth SystemComment on above:Performed By: #### [id number] #### [facility] [address] [place], [place] [address]WKT [Catalytic activity/Vol]74 Int._Unit/LHigh5-43The Metrohealth SystemComment on above:Performed By: #### [id number] #### [facility] [address] [place], [place] [address]Ikpyjaxrm [Mass/Vol]0.8 mg/dLNormal0.0-1.1FSelect Medical Specialty Hospital - Boardman, IncComment on above:Performed By: #### [id number] #### [facility] [address] [place], [place] [address]Tvxuqhxg (S) [Mass/Vol]2.9 g/dLNormal1.4-4.0The Metrohealth SystemComment on above:Performed By: #### [id number] #### [facility] [address] [place], [place] [address]Kwqckya [Mass/Vol]7.4 g/dLNormal6.0-7.8The Metrohealth SystemComment on above:Performed By: #### [id number] #### [facility] [address] [place], [place] [address]Tyxhu gap [Moles/Vol]13 mmol/LNormal6-16The Metrohealth SystemComment on above:Performed By: #### [id number] #### [facility] [address] [place], [place] [address]Qcihvsz [Mass/Vol]9.3 mg/dLNormal8.9-11.1FSelect Medical Specialty Hospital - Boardman, IncComment on above:Performed By: #### [id number] #### [facility] [address] [place], [place] [address]Ddrvezqe [Moles/Vol]100 mmol/CIbk758-568QhrnllThe Metrohealth SystemComment on above:Performed By: #### [id number] #### [facility] [address] [place], [place] [address]DF8 [Moles/Vol]25 mmol/DHysfdd69-05ArfknnThe Metrohealth System Comment on above:Performed By: #### [id number] #### [facility] [address] [place], [place] [address]Najrlagsxg [Mass/Vol]1.0 mg/dLNormal0.5-1.3FSelect Medical Specialty Hospital - Boardman, IncComment on above:Performed By: #### [id number] #### [facility] [address] [place], [place] [address]Tkwzqsz [Mass/Vol]316 mg/vYYynp96-263KyngkqThe Metrohealth SystemComment on above:Performed By: #### [id number] #### [facility] [address] [place], [place] [address]Iokdtjonv [Moles/Vol]4.3 mmol/LNormal3.5-5.3FSelect Medical Specialty Hospital - Boardman, IncComment on above:Performed By: #### [id number] #### [facility] [address] [place], [place] [address]Capxbk [Moles/Vol]134 mmol/PXmc348-572LfybyzThe Metrohealth SystemComment on above:Performed By: #### [id number] #### [facility] [address] [place], [place] [address]Jmdb nitrogen [Mass/Vol]16 mg/dLNormal5-21The Metrohealth SystemComment on above:Performed By: #### [id number] #### [facility] [address] [place], [place] [address]Qpvl nitrogen/Creatinine [Mass ratio]16 No BgengJvvefs32-93 The Metrohealth SystemComment on above:Performed By: #### [id number] #### [facility] [address] [place], [place] [address]DcfC1crz 84-08-8566WtB3g (Bld) [Mass fraction]11.5 %High<=5.9 The Metrohealth SystemComment on above:Performed By: #### [id number] #### [facility] [address] [place], [place] [address]Rrmqm Panelon 16-61-7429Fkqvlhhqxhl in VLDL [Mass/Vol]UTC Abnormal7-40The Metrohealth SystemComment on above:Result Comment: 'UNABLE TO REPORT. TRIG > 400 mg/dl' Result verified by Discern Rule. Performed result UT (Unable to Calculate) was sent as an Alpha code due the inability to calculate a valid numeric value. Performed By: #### [id number] #### [facility] [address] [place], [place] [address]Suxwjvagzdz [Mass/Vol]168 mg/rVLltdwe655-930GefernThe Metrohealth SystemComment on above:Performed By: #### [id number] #### [facility] [address] [place], [place] [address]Jwvgqatjimt in HDL [Mass/Vol]26 mg/dLInvalid Interpretation CodeThe Metrohealth SystemComment on above:Result Comment: '>= 60 LOW RISK' '<= 40 HIGH RISK'Performed By: #### [id number] #### [facility] [address] [place], [place] [address]Xultzmfhiig in LDL [Mass/Vol]89 mg/dLNormal<=129The Metrohealth SystemComment on above:Performed By: #### [id number] #### [facility] [address] [place], [place] [address]Zyqupkaivuhf [Mass/Vol]466 mg/dLHigh<=149The Metrohealth SystemComment on above:Performed By: #### [id number] #### [facility] [address] [place], [place] [address]W Microalbon 96-15-9423Rdkknms DL <= 20 mg/L (U) [Mass/Vol]91.8 mg/dLHigh0.0-1.9The Metrohealth SystemComment on above:Performed By: #### [id number] #### [facility] [address] [place], [place] [address]U Protein/Creat Ratioon 60-93-9349Svwuyme/Creatinine (U) [Ratio]152.40 mg/gm CrNormal.00-200.00The Metrohealth SystemComment on above:Performed By: #### [id number] #### [facility] [address] [place], [place] [address]P Nyalnlvcnp66.2 mg/dLInvalid Interpretation [facility] HospitalComment on above:Performed By: #### [id number] #### [facility] [address] [place], [place] [address]Ik Total Aawgtdg111.2 mg/dLInvalid Interpretation [facility] HospitalComment on above:Performed By: #### [id number] #### [facility] [address] [place], [place] [address]xJSXyl 68-42-3002fMGE31 mL/min/1.73 p7Qejctc>=59The Metrohealth SystemComment on above:Order Comment: Order added by Discern Expert. Performed By: #### [id number] #### [facility] [address] [place], [place] [address]Jkbyewicwf Visit Summaryon 89-65-7353Olowbrztdt Visit Summary SULTANA JOSHUA :1980 Visit Date:02/19/2024 [...] Appointments 2023 7:00 AM EDT With: [facility] BellevueInvalid Interpretation [address] [place] [address]- \.br\ You Need to Schedule the Following Appointments\.br\ Follow Up with PASQUALE STERN CNP, FAM When: Within 4 weeks\.br\ Comments:\.br\ HTN\.br\ Where:\.br\ [address] [facility]\.br\ [place] [address]\.br\ Business ( 1)\.br\ \.br\ You Need to Complete the Following\.br\ Comprehensive Metabolic Panel, Blood, Routinecollect, 02/19/24, Order for future visit, Lab Collect, [facility]Upper [facility] Medicine Office/Clinic Noteon 71-24-5561Tdcxff Medicine Office/Clinic NoteChief Complaint Patient in office [...] Daily, # 30 tab(s), Refills(s) 0, Pharmacy: [facility], 185, cm, 02/19/24 7:35:00 EDT, Height/Length Dosing, 119.7, kg, 02/19/24 7:35:00 EDT, Weight Dosing Comprehensive Metabolic Panel Lipid Panel 3. Yeast infection (B37.9: Candidiasis, unspecified) Ordered: fluconazole, 100 mg = 1 tab(s), Oral, Daily, X 7 day(s), # 7 tab(s), Refills(s) 0, Pharmacy: [facility], 185, cm, 02/19/24 7:35:00 EDT, Height/Length Dosing, 119.7, kg, 02/19/24 7:35:00 EDT, Weight Dosing Orders: pioglitazone, 45 mg = 1 tab(s), Oral, Daily, # 90 tab(s), Refills(s) 1, Pharmacy: [facility], 185, cm, 02/19/24 7:35:00 EDT, Height/Length Dosing, 119.7, kg, 02/19/24 7:35:00 EDT, Weight Dosing sitagliptin, 100 mg = 1 tab(s), Oral, Daily, # 90 tab(s), Refills(s) 1, Pharmacy: [facility], 185, cm, 02/19/24 7:35:00 EDT, Height/Length Dosing, 119.7, kg, 02/19/24 7:35:00 EDT, Weight Dosing Total time spent preparing the chart, conducting of the encounter with the patient and family and time spent documenting, reviewing, and ordering tests was 30 minutes. Follow-up With When Contact Information PASQUALE STERN CNP, FAM Within [address] [place] [phone] [facility] (1) Additional Instructions: HTN Patient Education Genital Yeast Infection, Male Hypertension, Adult, Eysl-tx-Qegg Problem List/Past Medical History Ongoing Abscess of [...] Current, Liquor, 1-2 times per month, 10/26/2023 [facility] (more content not included)...[facility] CenterComment on above:Result Comment: Electronically Signed [...] Keep all follow-up visits. Medicines ? Take imha-liy-mqkdozx and prescription medicines only as told by [...] blood. ? For m (more content not included)...[facility] Medical CenterProvider Letteron [phone] Letter February 19, 2024 SULTANA JOSHUA [address] [phone] : 1980 To Whom It May Concern, Please excuse above patient from work Sultana does have appt. @ 7:00 a.m. on February Date of Illness: From: _ To: _ May Return to Work On:02-21-24 Restrictions: _NONE Comments: _ Sincerely, [place] [address] ZjjffdKpikxhPremier Health Miami Valley Hospital SouthProvider Letter February 19, 2024 SULTANA JOSHUA [address] [address] : 1980 To Whom It May Concern, Please excuse above patient from work, Sultana had an appt this morning at 7:40 a.m. Date of Illness: From: _ To: _ May Return to Work On:02-19-24 Restrictions: _NONE Comments: _ Sincerely, [place] [phone] ZpbnhhBwooauUniversity Hospitals Parma Medical CenterAmbulatory Visit Summaryon 80-87-8588Gktzqharnm Visit Summary SULTANA JOSHUA :1980 Visit Date:11/30/2023 [...] you for choosing us for your care. [facility] CenterGeneral Surgery Office/Clinic Noteon 51-85-0507Tablony Surgery Office/Clinic NoteChief Complaint 1 month follow [...] with voice recognition artificial intelligence software, specifically [employer], [employer] and or [employer]. Substitutions may have occurred voice recognition and artificial intelligence software. Documentation services were performed after patient or guardian consented to allow Trivie to record this visit. ABBY revenue specialist and provider reviewed before signing. ABBY: [...] pneumococcal 23-valent vaccine 11/07/2021 Recorded 2023-10-26: DATE: 07/16/2019[facility] CenterComment on above:Result Comment: Electronically Signed [...] with voice recognition artificial intelligence software, specifically [employer]elation, [employer] and or [employer]. Substitutions may have occurred voice recognition and artificial intelligence software. Documentation services were performed after patient or guardian consented to allow Trivie to record this visit. ABBY revenue specialist and provider reviewed before signing. ABBY: [...] 23-valent vaccine 11/07/2021 Recorded 2023-10-26: VIS DATE: 07/16/2019[facility] CenterComment on above:Result Comment: Electronically Signed By: Rajat Zeng MD\.br\Date and Time Signed: 11/05/23 15:39 EST\.br\Electronically Co-Signed By: Gillian Hernandez\.br\Date and Time Co-Signed: 11/02/23 09:39 ESTAmbulatory Visit Summaryon [id number] Visit Summary SULTANA JOSHUA :1980 Visit Date:11/02/2023 [...] AM EDT With: Rajat Zeng MD Where: [facility]Provider Letteron [id number] Letter November 02, 2023 SULTANA JOSHUA [address] [place] [id number] : 1980 To Whom It May Concern, Please excuse above patient from work. 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 male here for abscess on neck Patient was seen at [facility] on 10/21/2023 Bedside US done showing [...] with voice recognition artificial intelligence software, specifically Eyel[employer], [employer] and or [employer]. Substitutions may have occurred due to the inherent limitations of voice recognition and artificial intelligence software. Documentation services were performed after patient or guardian consented to allow Trivie to record this visit. ABBY revenue specialist and provider reviewed before signing. ABBY: Signal Vine Follow-up No qualifying data available Patient Education [...] History Diabetes mellitus type (more content not included)...[facility] Medical CenterComment on above:Result Comment: Electronically Signed By: Rajat Zeng MD\.br\Date and Time Signed: 10/29/23 08:41 EST\.br\Electronically Co- Signed By: Giovanna Sewell\.br\Date and Time Co-Signed: 10/26/23 11:30 EST Ambulatory Visit Summaryon [id number] Visit Summary SULTANA JOSHUA :1980 Visit Date:10/26/2023 [...] EST With: Azucena ARRIAGA, Rajat Hurd Where: [facility] General Surgery [facility] Medicine Office/Clinic Noteon [id number] Medicine Office/Clinic NoteChief Complaint ED follow up and Establish care HPI Staff Establish Care: History: Any previous diagnosis: DM, HTN History of seeing any specialist: n/a When was your last doctors visit: unknown Last provider: Monica Durán Any recent labs: Last August in [facility] UTD: Colonoscopy: no Acute: Current issues/complaints: ER followup: Hospital: [facility] Visit date:10/20/2023 Symptoms the patient presented [...] & Hyperlipidemia. He was seen at the [facility] Edfor the abscesses on the left side of his neck on 10/20/2023. He reports they gave him two oral ATB's and mupirocin topical for the area. He states they wanted him to make an appointment with Dr. Orourke, general surgery in [place] but told him to come to a [...] compresses to the area Awaiting report from [facility] ED Appointment today at 10 AM with General Surgeon at [facility] [place] Ordered: [facility] [place] Internal Ambulatory Referral 2. Encounter to establish [...] CNP, FAM Within 2 to [address] [place] [address] 44 (more content not included)...[facility] Medical CenterComment on above:Result Comment: Electronically Signed By: PASQUALE STERN CNP\.br\Date and Time Signed: 10/26/23 10:55 ESTPatient Educationon [id number] EducationGastroenterology Obesity, Adult Obesity is the condition [...] ovarian syndrome (PCOS). ? Binge-eating disorder. ? Benton syndrome. ? Taking certain medicines, such as [...] food choices, such as grocery stores and Yeah[employer]. What are the signs or symptoms? The [...] much you have to (more content not included)...[facility] EducationInfectious Disease Skin Abscess A skin abscess [...] these instructions at home: Medicines ? 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 ? Check your abscess every day for signs that the infection is getting worse. Check for: ? More redness, swelling, or pain. ? More fluid or blood. ? Warmth. ? More pus or a bad smell. General instructions ? To avoid spreading the infection: ? Do not share personal care items, towels, or hot tubs with others. ? Avoid making fckf-mg-qorf contact with other people. ? Keep all [...] provider. Document Revised: 12/07/2022 Document Reviewed: 06/12/2022 [employer]ver[employer] Patient Education ? 2022 [employer]link.[facility] Provider Letteron [id number] Letter October 26, 2023 SULTANA JOSHUA [address] [phone] : 1980 To Whom It May Concern, Please excuse above patient from work. Date of Illness: From: 10/26/2023 To: 10/28/2023 May Return to Work On:10/29/23 Restrictions: _ Comments: _ Sincerely, Rajat Zeng MD [facility] [place] General SurgeryUniversity Hospitals Parma Medical CenterBasic Metabolic Profon 00-67-4664Lxkcy gap [Moles/Vol]11 mmol/LNormal9-17[facility] HospitalComment on above:Performed By: #### ESTUARDO BMP, MG #### [facility] [address] [place] [address] [place] [address] Storm Sash Maker: Norm Frank MDBUN/CRE Ayzha49Uqnpjd6-28Jybvk [facility] Comment on above:Performed By: #### ESTUARDO BMP, MG #### [facility] [address] [place] [address] Storm Sash Maker: SUSANA Fairchildalcium [Mass/Vol]9.9 mg/dLNormal8.6-10.4[facility] HospitalComment on above:Performed By: #### CDP BMP, MG #### [address] [place] [address] Storm Sash Maker: SUSANA Fairchildhloride [Moles/Vol]106 mmol/VMncbzm71-511WttyjWvumedicine Harrison Community HospitalComment on above:Performed By: #### CDP, BMP, MG #### [address] [place] [address] Storm Sash Maker: Norm Frank MDCO2 [Moles/Vol]24 mmol/GApbqzl45-86SwrrvWvumedicine Harrison Community HospitalComment on above:Performed By: #### CDP, BMP, MG #### [address] [place], [place] [id number] Storm Sash Maker: SUSANA Fairchildreatinine [Mass/Vol]0.9 mg/dLNormal0.7-1.2MSumma Health Wadsworth - Rittman Medical CenterComment on above:Performed By: #### ESTUARDO BMP, MG #### [address] [place] [address] Storm Sash Maker: Norm Frank MDGFR/1.73 sq M.predicted among non-blacks MDRD (S/P/Bld) [Vol rate/Area]mL/min/{1.73_m2}Normal>60[facility] HospitalComment on above:Result Comment: These results are [...] secretion.Performed By: #### CDP, BMP, MG #### [address] [place] [address] Storm Sash Maker: Norm Frank MDGlucose [Mass/Vol]146 mg/xIDvzv88-27MukcgSumma Health Wadsworth - Rittman Medical CenterComment on above:Performed By: #### CDP, BMP, MG #### [address] [place], [facility]83 Storm Sash Maker: CAIO Fairchildotassium [Moles/Vol]4.4 mmol/LNormal3.7-5.3[facility] HospitalComment on above:Performed By: #### CDP, BMP, MG #### [address] [place], [place] [address] Storm Sash Maker: Norm Frank MDSodium [Moles/Vol]141 mmol/BRcofwo821-022Drzrn [facility] HospitalComment on above:Performed By: #### CDP, BMP, MG #### [address] [place], [place] [address] Storm Sash Maker: Norm Frank MDUrea nitrogen [Mass/Vol]13 mg/dLNormal6-20MerFairfield Medical Center HospitalComment on above:Performed By: #### CDP, BMP, MG #### [address] [place], [facility]83 Storm Sash Maker: TRISTA Fairchild with Diffon 06-84-1473Yeu. Basophil0.04 k/uL Normal0.00-0.20MerFairfield Medical Center HospitalComment on above:Performed By: #### CDP, BMP, MG #### [address] [place], [place] [address] Storm Sash Maker: Sunny Fairchild.Imm.Granulocyte<0.82Ukfvjl5.00-0.30MerFairfield Medical Center HospitalComment on above:Performed By: #### CDP, BMP, MG #### [address] [place] [address] Storm Sash Maker: Sunny Fairchild.Neutrophil (Seg)2.92 k/uLNormal1.50-8.10MerFairfield Medical Center HospitalComment on above:Performed By: #### CDP, BMP, MG #### [address] [place], [place] [address] Storm Sash Maker: Norm Frank MDBasophils/100 WBC (Bld)1 %Normal0-2[facility] HospitalComment on above:Performed By: #### CDP, BMP, MG #### [address] [place] [address] Storm Sash Maker: Norm Frank MDEosinophils (Bld) [#/Vol]0.26 10*3/uLNormal 0.00-0.44MerFairfield Medical Center HospitalComment on above:Performed By: #### CDP, BMP, MG #### [address] [place], [place] [address] Storm Sash Maker: Norm Frank MDEosinophils/100 WBC (Bld)4 %Normal1-4MerFairfield Medical Center HospitalComment on above:Performed By: #### CDP, BMP, MG #### [address] [place], [place] [address] Storm Sash Maker: Norm Frank MDErythrocyte distribution width (RBC) [Ratio]12.6 % Bddwpi92.8-14.4[facility] HospitalComment on above:Performed By: #### CDP, BMP, MG #### [address] [place], [place] [address] Storm Sash Maker: Norm Frank MDHematocrit (Bld) [Volume fraction]45.5 %Normal 40.7-50.3[facility] HospitalComment on above:Performed By: #### CDP, BMP, MG #### [address] [place] [address] Storm Sash Maker: Norm Frank MDHemoglobin (Bld) [Mass/Vol]16.4 g/dLNormal 13.0-17.0MerFairfield Medical Center HospitalComment on above:Performed By: #### CDP, BMP, MG #### [address] [place], [place] 448[address]83 Storm Sash Maker: Boone Fairchildture granulocytes/100 WBC (Bld)0 %Mndufz4DsnnoWvumedicine Harrison Community HospitalComment on above:Performed By: #### CDP, BMP, MG #### [address] [place], [facility]83 Storm Sash Maker: Norm Frank MDLymphocytes (Bld) [#/Vol]2.51 10*3/uLNormal 1.10-3.70[facility] HospitalComment on above:Performed By: #### CDP, BMP, MG #### [address] [place], [facility]83 Storm Sash Maker: Izzy Fairchildmphocytes/100 WBC (Bld)39 %Mqmdbt11-46NxjscWvumedicine Harrison Community HospitalComment on above:Performed By: #### CDP, BMP, MG #### [address] [place], [facility]83 Storm Sash Maker: ISELA Fairchild (RBC) [Entitic mass]34.5 pmZqbf58.2-33.5[facility] HospitalComment on above:Performed By: #### CDP, BMP, MG #### [address] [place], [facility]83 Storm Sash Maker: ISELA FairchildC (RBC) [Mass/Vol]36.0 g/bLEake42.4-34.8[facility] HospitalComment on above:Performed By: #### CDP, BMP, MG #### [address] [place] [address] Storm Sash Maker: MARIO FairchildCV (RBC) [Entitic vol]95.6 vEXheaxg77.6-102.9 [facility] HospitalComment on above:Performed By: #### CDP, BMP, MG #### [facility] [address] [place], [place] 8100683 Storm Sash Maker: MARIO Fairchildonocytes (Bld) [#/Vol]0.68 10*3/uLNormal0.10-1.20 [facility] HospitalComment on above:Performed By: #### CDP, BMP, MG #### [address] [place] [address] Storm Sash Maker: MARIO Fairchildonocytes/100 WBC (Bld)11 %Normal3-12[facility] HospitalComment on above:Performed By: #### CDP, BMP, MG #### [address] [place], [place] [address]3 Storm Sash Maker: Norm Frank MDNeutrophil (Seg)45 %Mnutxo24-11Kjvgn [facility] HospitalComment on above:Performed By: #### CDP, BMP, MG #### [address] [place], [place] [address] Storm Sash Maker: Norm Frank MDNRBC Automated0.0 per 100 WBCNormal0.0[facility] HospitalComment on above:Performed By: #### CDP, BMP, MG #### [address] [place], [place] [phone] Storm Sash Maker: Marisol Fairchild mean volume (Bld) [Entitic vol]9.8 fL Normal8.1-13.5[facility] HospitalComment on above:Performed By: #### CDP, BMP, MG #### [address] [place], [place] 1774083 Storm Sash Maker: CAIO Fairchildlatelets (Bld) [#/Vol]210 10*3/kXKlcuqd266-674 [facility] HospitalComment on above:Performed By: #### CDP, BMP, MG #### [address] [place], [place] 8437683 Storm Sash Maker: MICA Fairchild (Bld) [#/Vol]4.76 10*6/uLNormal4.21-5.77[facility] HospitalComment on above:Performed By: #### ESTUARDO BMP, MG #### [facility] [address] [place], [place] [address] Storm Sash Maker: PARISH Fairchild (d) [#/Vol]6.4 10*3/uLNormal3.5-11.3[facility] HospitalComment on above:Performed By: #### BELLA MARTE, MG #### [facility] [address] [place], [place] 313[address]83 Storm Sash Maker: Norm Frank MDCT HEAD WO CONTRASTon [id number] HEAD WO CONTRASTEXAMINATION: CT OF THE HEAD [...] Signed by: Dakota Bennett MD 06/22/23 Final resultNormalMerSilver Hill HospitalCTA HEAD NECK W CONTRASTon 80-59-7118DMQ HEAD NECK W CONTRASTEXAMINATION: CTA OF THE [...] by: Virgil Steward MD 06/22/23 Final resultNormalMercy Middlesex HospitalMagnesiumon 01-57-1155Dkxeuttgv [Mass/Vol]1.8 mg/dLNormal1.6-2.6[facility] HospitalComment on above:Performed By: #### BELLA MARTE MG #### [facility] [address] [place] [address] Storm Sash Maker: Norm Frank MDHemoglobin A1Con 87-96-8943Vkkuino [Mass/Vol]146 mg/dLNormUC HealthComment on above:Result Comment: The ADA and AACC recommend providing the estimated average glucose result to permit better patient understanding of their HBA1c result.Performed By: #### CP, CBC #### [facility] [address] [place] [address] Dr. [place], [place] 101[address]83 Storm Sash Maker: Norm Frank MD #### BVTEST, GLYHGB #### [facility] [address] [place], [place] [phone] Storm Sash Maker: Trenton Carbajal MDHbA1c (Bld) [Mass fraction]6.7 %High4.0-6.0[facility] HospitalComment on above:Performed By: #### CP, CBC #### [facility] [address] [place] [address] Dr. [place], [place] 8092383 Storm Sash Maker: Norm Frank MD #### BVTEST, GLYHGB #### [facility] [address] [place], [place] 3869[address] Storm Sash Maker: Trenton Carbajal MDLipid Panelon 98-36-3132Wbqcbsflqpk [Mass/Vol] 185 mg/dLNINF - 200 mg/dLBON UNIVERS[facility]OS[facility] CLEVELAND MEDICAL CENTERComment on above: Cholesterol Guidelines: <200 Desirable 200-240 Borderline >240 Undesirable Cholesterol in HDL [Mass/Vol]37 mg/dLLow40 - PINF mg/dLB[facility] Comment on above: HDL Guidelines: <40 Undesirable 40-59 Borderline >59 Desirable Cholesterol in LDL [Mass/Vol]119 mg/dL0 - 130 mg/dLB[facility] Comment on above: LDL Guidelines: <100 Desirable 100-129 Near to/above Desirable 130-159 Borderline >159 Undesirable Direct (measured) LDL and calculated LDL are not interchangeable tests. Cholesterol.total/Cholesterol in HDL [Mass ratio]5 {ratio}HighNINF - 5B[facility] MEDICAL CENTERInterpretation and review of laboratory resultsAbnormalBON UNIVERS[facility]OS[facility] CLEVELAND MEDICAL CENTERTriglyceride [Mass/Vol]144 mg/dLNINF - 150 mg/dLBON UN[facility]ERS[facility] CLEVELAND MEDICAL CENTERComment on above: Triglyceride Guidelines: <150 Desirable 150-199 Borderline 200-499 High >499 Very high Based on AHA Guidelines for fasting triglyceride, June 2012. [facility] MEDICAL CENTERLipid Profileon 02-20-4303Mtjmtiiuqph [Mass/Vol]185 mg/dLNormal<200Mer[facility] HospitalComment on above:Result Comment: Cholesterol Guidelines: <200 Desirable 200-240 Borderline >240 UndesirablePerformed By: #### LIPR #### [facility] CenterSim[facility] [address] [place] [address] Storm Sash Maker: SUSANA Lopezholesterol in HDL [Mass/Vol]37 mg/dLLow>40Mer[facility] HospitalComment on above:Result Comment: HDL Guidelines: <40 Undesirable 40-59 Borderline >59 DesirablePerformed By: #### LIPR #### [facility] [place] [address] Storm Sash Maker: SUSANA Lopezholesterol in LDL [Mass/Vol]119 mg/dLNormal 0-130Mer[facility] HospitalComment on above:Result Comment: LDL Guidelines: <100 Desirable 100-129 Near to/above Desirable 130-159 Borderline >159 Undesirable Direct (measured) LDL and calculated LDL are not interchangeable tests.Performed By: #### LIPR #### [facility] CenterSim[facility] [address] [place] [address] Storm Sash Maker: Parish Lopez.total/Cholesterol in HDL [Mass ratio]5.0 {ratio}High<5Mer[facility] HospitalComment on above:Performed By: #### LIPR #### [facility] [address] [place] [address] Storm Sash Maker: Trenton Carbajal MDTriglyceride [Mass/Vol]144 mg/dLNormal<150Mer[facility] HospitalComment on above:Result Comment: Triglyceride Guidelines: <150 Desirable 150-199 Borderline 200-499 High >499 Very high Based on AHA Guidelines for fasting triglyceride, June 2012.Performed By: #### LIPR #### [facility] [address] [place] [phone] Storm Sash Maker: Trenton Carbajal MDTestosterone Free Bio Totalon 86-76-8093Jih Hormone Qdxmste12 nmol/L11 - 80 nmol/LBON UNIVERSITY [facility]OSPITALS CLEVELAND MEDICAL CENTERTestosterone [Mass/Vol]752 ng/dL220 - 1000 ng/dLBON UN[facility]ERS[facility]OS[facility] CLEVELAND MEDICAL CENTERTestosterone, Bufjpmfbauzp850.5 ng/dL130 - 680 ng/dLBON [facility]IVERS[facility] CLEVEL[facility] MEDICAL CENTERCombronson methodist hospital on above: The concentration of bioavailable testosterone is derived from a mathematical expression based on the constant for the binding of testosterone to albumin and/or sex hormone binding globulin. Testosterone, Ljgr302.3 pg/mL47 - 244 pg/mLBON UNIVERSITY [facility]OSPITALS CLEVELAND MEDICAL CENTERCombronson methodist hospital on above:The concentration of free testosterone is derived from a mathematical expression based on the constant for the binding of testosterone to albumin and/or sex hormone binding globulin. B[facility]LEVEL[facility] MEDICAL CENTERTestosterone,Bioavailon 90-93-0284Vqv Horm Bind Glob56 nmol/FPgfzph85-42DmjzyWvumedicine Harrison Community HospitalComment on above:Performed By: #### SANJUANITA, CBC #### [address] [place] [address] Storm Sash Maker: Norm Frank MD #### BVTEST, GLYHGB #### [facility] [address] [facility] [place], [place] [address] Storm Sash Maker: Trenton Carbajal MDTest,Xalpznow275.5 ng/qFShjjgt708-696JxfupWvumedicine Harrison Community HospitalCombronson methodist hospital on above:Result Comment: The concentration of bioavailable testosterone is derived from a mathematical expression based on the constant for the binding of testosterone to albumin and/or sex hormone binding globulin.Performed By: #### SANJUANITA, CBC #### [address] [place] [address] Storm Sash Maker: Norm Frank MD #### BVTEST, GLYHGB #### [facility] [address] [place] [address] Storm Sash Maker: rTenton Carbajal MDTestosterone [Mass/Vol]752 ng/qJTdxomf907-2348 [facility] HospitalComment on above:Performed By: #### CP, CBC #### [address] [place] [address] Storm Sash Maker: Norm Frank MD #### BVTEST, GLYHGB #### [address] [id number] Storm Sash Maker: Trenton Carbajal MDTestosterone,Ionj051.3 pg/dKAmogwu91-880AectjWvumedicine Harrison Community HospitalComment on above:Result Comment: The concentration of free testosterone is derived from a mathematical expression based on the constant for the binding of testosterone to albumin and/or sex hormone binding globulin.Performed By: #### SANJUANITA, CBC #### [address] [place], [place] 9182583 Storm Sash Maker: Norm Frank MD #### BVTEST, GLYHGB #### [address] [phone] Storm Sash Maker: SUSANA LopezSaint Louis University Hospital 24-28-7991Tmqtatjlqql distribution width (RBC) [Ratio]12.9 %Eoffjr54.8-14.4[facility] HospitalComment on above: Performed By: #### SANJUANITA, CBC #### [address] [place], [place] 88[address]83 Storm Sash Maker: Norm Frank MD #### BVTEST, GLYHGB #### [address] [address] Storm Sash Maker: Trenton Carbajal MDHematocrit (Bld) [Volume fraction]44.0 %Normal 40.7-50.3MSumma Health Wadsworth - Rittman Medical CenterComment on above:Performed By: #### SANJUANITA, CBC #### [address] [place], [place] 612[address]83 Storm Sash Maker: Norm Frank MD #### BVTEST, GLYHGB #### [address] [phone] Storm Sash Maker: Trenton Carbajal MDHemoglobin (Bld) [Mass/Vol]15.7 g/dLNormal 13.0-17.0[facility] HospitalComment on above:Performed By: #### CP, CBC #### [address] [place] [phone] Storm Sash Maker: Norm Frank MD #### BVTEST, GLYHGB #### [place] [address] [place], [place] 267450[address] Storm Sash Maker: MARIO LopezCH (RBC) [Entitic mass]33.9 vaKrob32.2-33.5 [facility] HospitalComment on above:Performed By: #### CP, CBC #### [address] [place] [phone] Storm Sash Maker: Norm Frank MD #### BVTEST, GLYHGB #### [place] [address] [place] [id number] Storm Sash Maker: MARIO LopezCHC (RBC) [Mass/Vol]35.7 g/xCDjxo40.4-34.8[facility] HospitalComment on above:Performed By: #### CP, CBC #### [address] [place] [phone] Storm Sash Maker: Norm Frank MD #### BVTEST, GLYHGB #### [place] [address] [place] [id number] Storm Sash Maker: MARIO LopezCV (RBC) [Entitic vol]95.0 iQExsoph88.6-102.9 [facility] HospitalComment on above:Performed By: #### CP, CBC #### [address] [place] [address] Storm Sash Maker: Norm Frank MD #### BVTEST, GLYHGB #### [address] [address] Storm Sash Maker: Trenton Carbajal MDNRBC Automated0.0 per 100 WBCNormal0.0[facility] on above:Performed By: #### CP, CBC #### [address] [place] [phone] ( Storm Sash Maker: Norm Frank MD #### BVTEST, GLYHGB #### [address] [address] Storm Sash Maker: Marisol Lopez mean volume (Bld) [Entitic vol]10.6 fL Normal8.1-13.5[facility] HospitalCombronson methodist hospital on above:Performed By: #### SANJUANITA, CBC #### [address] [place] [address] Storm Sash Maker: Norm Frank MD #### BVTEST, GLYHGB #### [address] [address] Storm Sash Maker: Christiano Lopez (Bld) [#/Vol]187 10*3/eZRnyctk940-048 [facility] HospitalCombronson methodist hospital on above:Performed By: #### CP, CBC #### [address] [place] [address] Storm Sash Maker: Norm Frank MD #### BVTEST, GLYHGB #### [address] [address] Storm Sash Maker: MICA Lopez (Bld) [#/Vol]4.63 10*6/uLNormal4.21-5.77 [facility] on above:Performed By: #### CP, CBC #### [address] [place] [id number] Storm Sash Maker: Norm Frank MD #### BVTEST, GLYHGB #### [facility] [address] [place], [place] [id number] Storm Sash Maker: Trenton Carbajal MDWBC (Bld) [#/Vol]5.3 10*3/uLNormal3.5-11.3MSumma Health Wadsworth - Rittman Medical CenterComment on above:Performed By: #### CP, CBC #### [facility] [address] [place] [address] Storm Sash Maker: Norm Frank MD #### BVTEST, GLYHGB #### [facility] [address] [place] [address] Storm Sash Maker: Trenton Carbajal MDHematocrit (Bld) [Volume fraction]44.0 %40.7 - 50.3 %[facility] HOSPITALHemoglobin (Bld) [Mass/Vol]15.7 g/dL13.0 - 17.0 g/dLBON UNIVERSITY HOSPITALS CLEVELAND MEDICAL CENTERInterpretation and review of laboratory results AbnormalLAKE TAYLOR TRANSITIONAL CARE HOSPITALH (RBC) [Entitic mass]33.9 smQuiw36.2 - 33.5 pgLAKE TAYLOR TRANSITIONAL CARE HOSPITALHC (RBC) [Mass/Vol]35.7 g/iRQzbq27.4 - 34.8 g/dLBON MIDDLETOWN HOSPITALV (RBC) [Entitic vol]95.0 fL82.6 - 102.9 fLSENTARA HALIFAX REGIONAL HOSPITALNRBC Automated0.00.0 per 100 WBCSENTARA HALIFAX REGIONAL HOSPITALPlatelet distribution width (Bld) [Ratio]12.9 %11.8 - 14.4 %[facility] Platelet mean volume (Bld) [Entitic vol]10.6 fL8.1 - 13.5 fLSENTARA HALIFAX REGIONAL HOSPITALPlatelets (Bld) [#/Vol]187 10*3/uLBON UNIVERSITY HOSPITALS CLEVELAND MEDICAL CENTERRBC (Bld) [#/Vol]4.63 10*6/uL4.21 - 5.77 m/uLBON UNIVERSITY HOSPITALS CLEVELAND MEDICAL CENTERWBC (Bld) [#/Vol]5.3 10*3/uLBON [facility] Metabolic Profon 95-21-2110Tfrngid [Mass/Vol]4.4 g/dLNormal3.5-5.2MSumma Health Wadsworth - Rittman Medical CenterComment on above:Performed By: #### CP, CBC #### [address] [place] [address] Storm Sash Maker: Norm Frank MD #### BVTEST, GLYHGB #### [address] [address] Storm Sash Maker: Trenton Carbajal MDAlbumin/Glob Ratio1.1Lxumaz0.0-2.5W[facility]umed[facility] Community HospitalComment on above:Performed By: #### SANJUANITA, CBC #### [address] [place], [place] [id number] Storm Sash Maker: Norm Frank MD #### BVTEST, GLYHGB #### [address] [address] Storm Sash Maker: Heather Lopez Phos61 U/SXvsrkq05-209KwumqWvumedicine Harrison Community HospitalComment on above:Performed By: #### SANJUANITA, CBC #### [address] [place] [address] Storm Sash Maker: Norm Frank MD #### BVTEST, GLYHGB #### [address] [address] Storm Sash Maker: Trenton Carbajal MDALT [Catalytic activity/Vol]40 U/LNormal5-41 [facility] HospitalCombronson methodist hospital on above:Performed By: #### SANJUANITA, CBC #### [address] [place] [address] Storm Sash Maker: Norm Frank MD #### BVTEST, GLYHGB #### [address] [address] Storm Sash Maker: Trenton Carbajal MDAnion gap [Moles/Vol]11 mmol/LNormal9-17[facility] Community HospitalComment on above:Performed By: #### CP, CBC #### [facility] [address] [place] [address] [place]. [place], [place] [phone] Storm Sash Maker: Norm Frank MD #### BVTEST, GLYHGB #### [address] [phone] Storm Sash Maker: Trenton Carbajal MDAST [Catalytic activity/Vol]23 U/LNormal<40Wvumed[facility] Community HospitalComment on above:Performed By: #### SANJUANITA, CBC #### [facility] [address] [place] [address] [place]. [place], [place] [phone] Storm Sash Maker: Norm Frank MD #### BVTEST, GLYHGB #### [address] [address] Storm Sash Maker: Trenton Carbajal MDBilirubin [Mass/Vol]0.4 mg/dLNormal0.3-1.2MSumma Health Wadsworth - Rittman Medical CenterComment on above:Performed By: #### SANJUANITA, CBC #### [address] [place], [place] [address] Storm Sash Maker: Norm Frank MD #### BVTEST, GLYHGB #### [address] [address] Storm Sash Maker: Trenton Carbajal MDBUN/CRE Qpxxk86Hzcnqj8-66[facility] Comment on above:Performed By: #### SANJUANITA, CBC #### [address] [place], [place] [id number] Storm Sash Maker: Norm Frank MD #### BVTEST, GLYHGB #### [address] [address] Storm Sash Maker: SUSANA Lopezalcium [Mass/Vol]9.8 mg/dLNormal8.6-10.4W[facility]umed[facility] HospitalComment on above:Performed By: #### CP, CBC #### [address] [place] [phone] Storm Sash Maker: Norm Frank MD #### BVTEST, GLYHGB #### [address] [phone] Storm Sash Maker: SUSANA Lopezhloride [Moles/Vol]106 mmol/VPjagwz93-563ZrqklWvumedicine Harrison Community HospitalComment on above:Performed By: #### CP, CBC #### [address] [place] [phone] Storm Sash Maker: Norm Frank MD #### BVTEST, GLYHGB #### [place] [phone] Storm Sash Maker: SUSANA LopezO2 [Moles/Vol]23 mmol/VHujiyo94-56QkusdWvumedicine Harrison Community HospitalComment on above:Performed By: #### CP, CBC #### [address] [place] [phone] Storm Sash Maker: Norm Frank MD #### BVTEST, GLYHGB #### [address] [address] Storm Sash Maker: SUSANA Lopezreatinine [Mass/Vol]0.73 mg/dLNormal0.70-1.20 [facility] HospitalComment on above:Performed By: #### CP, CBC #### [address] [place] [address] Storm Sash Maker: Norm Frank MD #### BVTEST, GLYHGB #### [address] [phone] Storm Sash Maker: Trenton Carbajal MDGFR/1.73 sq M.predicted among non-blacks MDRD (S/P/Bld) [Vol rate/Area]mL/min/{1.73_m2}Normal>60[facility] HospitalCombronson methodist hospital on above:Result Comment: Effective Jun 19, [...] tubular secretion.Performed By: #### CP, CBC #### [address] [place] [address] Storm Sash Maker: Norm Frank MD #### BVTEST, GLYHGB #### [address] [phone] Storm Sash Maker: Trenton Carbajal MDGlucose [Mass/Vol]179 mg/oSCqlt59-85Audbt[address] [place], [place] [address]Comment on above:Performed By: #### SANJUANITA, CBC #### [address] [place] [address] Storm Sash Maker: Norm Frank MD #### BVTEST, GLYHGB #### [address] [phone] Storm Sash Maker: Trenton Carbajal MDPotassium [Moles/Vol]4.1 mmol/LNormal3.7-5.3 [facility] HospitalComment on above:Performed By: #### SANJUANITA, CBC #### [address] [place] [address] Storm Sash Maker: Norm Frank MD #### BVTEST, GLYHGB #### [address] [phone] Storm Sash Maker: Trenton Carbajal MDProtein [Mass/Vol]7.1 g/dLNormal6.4-8.3Mkettering health troyy Middlesex HospitalComment on above:Performed By: #### CP, CBC #### [address] [place] [address] Storm Sash Maker: Norm Frank MD #### BVTEST, GLYHGB #### [place] [address] [place], [place] [phone] Storm Sash Maker: EDGAR Lopezodium [Moles/Vol]140 mmol/QTqhtty499-403XdvlfWvumedicine Harrison Community HospitalComment on above:Performed By: #### CP, CBC #### [address] [place] [address] Storm Sash Maker: Norm Frank MD #### BVTEST, GLYHGB #### [place] [id number] [place], [place] [phone] Storm Sash Maker: Trenton Carbajal MDUrea nitrogen [Mass/Vol]14 mg/dLNormal6-20[facility] HospitalComment on above:Performed By: #### CP, CBC #### [address] [place] [address] Storm Sash Maker: Norm Frank MD #### BVTEST, GLYHGB #### [id number] [place], [place] [phone] Storm Sash Maker: SUSANA Lopezomprehensive Metabolic Panelon 09-01-2022 Albumin [Mass/Vol]4.4 g/dL3.5 - 5.2 g/dLBON UNIVERSITY HOSPITALS CLEVELAND MEDICAL CENTERAlbumin/Globulin [Mass ratio]1.6 {ratio}1.0 - 2.5B[facility] HEALTHALP (Bld) [Catalytic activity/Vol]61 U/L40 - 129 U/LBON [facility] HEALTHALT [Catalytic activity/Vol]40 U/L5 - 41 U/LBON [facility] CLEVEL[facility] MEDICAL CENTERAnion gap [Moles/Vol]11 mmol/L9 - 17 mmol/LBON [facility] HEALTHAST [Catalytic activity/Vol]23 U/L NINF - 40 U/LBON [facility] MEDICAL CENTERBilirubin [Mass/Vol]0.4 mg/dL0.3 - 1.2 mg/dLBON UN[facility]OS[facility]ITALS C[facility] MEDICAL CENTERCalcium [Mass/Vol]9.8 mg/dL8.6 - 10.4 mg/dLBON UNIVERSITY HOSPITALS CLEVEL[facility] MEDICAL CENTERChloride [Moles/Vol]106 mmol/L98 - 107 mmol/LBON [facility] HOSPITALS CLEVEL[facility] MEDICAL CENTERCO2 [Moles/Vol]23 mmol/L20 - 31 mmol/LBON [facility] Creatinine [Mass/Vol]0.73 mg/dL0.70 - 1.20 mg/dLBON [facility] norin.tvGFR/1.73 sq M.predicted MDRD (S/P/Bld) [Vol rate/Area]- [facility] Comment on above: Effective [...] that affects renal tubular secretion. Glucose [Mass/Vol]179 mg/kUAitu10 - 99 mg/dLBON [facility] Interpretation and review of laboratory resultsAbnormalBON [facility] Potassium [Moles/Vol]4.1 mmol/L3.7 - 5.3 mmol/LBON [facility]OS[facility]ITALS C[facility] MEDICAL CENTERProtein [Mass/Vol]7.1 g/dL6.4 - 8.3 g/dLBON UNIVERS[facility] HOS[facility]ITALS [facility] MEDICAL CENTERSodium [Moles/Vol]140 mmol/L135 - 144 mmol/LBON UNIVERSITY HOSPITALS CLEVELAND MEDICAL CENTERUrea nitrogen (BldV) [Mass/Vol]14 mg/dL6 - 20 mg/dLB[facility] norin.tvUrea nitrogen/Creatinine (Bld) [Mass ratio]199 - 20B[facility] CENTERBON [facility]OS[facility] MEDICAL CENTERXR RIBS RIGHT (2 VIEWS)on 12-89-2511Sb acute osseous abnormality of the right ribs.[facility] [employer]- [place], KYEXAMINATION: 2 XRAY VIEWS OF THE RIGHT RIBS 09/13/2020 4:22 pm COMPARISON: None. HISTORY: ORDERING SYSTEM PROVIDED HISTORY: Right-sided chest pain TECHNOLOGIST PROVIDED HISTORY: right sided chest pain, s/p injury FINDINGS: AP and oblique views of the right chest wall are submitted for review. No acute fracture or dislocation identified. Overlying soft tissues are unremarkable. Visualized lung parenchyma is clear.[facility], LAYOEdi, Mhpn Incoming Radiant Results From [...] acute osseous abnormality of the right ribs. [facility], KYALTon [id number] [Catalytic activity/Vol]37 U/L5 - 41 U/L [facility], KYASTon 40-10-0020TOE [Catalytic activity/Vol]19 U/L<40[facility]- [place], KYBasic Metabolic Panelon 03-67-6217Gzbey gap [Moles/Vol]10 mmol/L9 - 17 mmol/LMpomerene hospital Health- [place], KYBun/Cre Nujnq93Sjbew Health- [place], KYCalcium [Mass/Vol]9.9 mg/dL8.6 - 10.4 mg/dLBethesda North Hospital [facility]- [place], KYChloride [Moles/Vol]99 mmol/L98 - 107 mmol/LMkettering health troyy Health- [place], KYCO2 [Moles/Vol]25 mmol/L20 - 31 mmol/L [facility]- [place], KYCreatinine [Mass/Vol]0.77 mg/dL0.7 - 1.2 mg/dLBethesda North Hospital [facility]- [place], KYGFR >60>60 mL/minBethesda North Hospital Health- [place], KYGFR Non->60>60 mL/minBethesda North Hospital Health- [place], KYGlucose [Mass/Vol]140 mg/gRGfde81 - 99 mg/dLBethesda North Hospital Health- [place], KYInterpretation and review of laboratory resultsAbnormal [facility], HIPotassium [Moles/Vol]4.0 mmol/L3.7 - 5.3 mmol/LMMary Rutan Hospital, HISodium [Moles/Vol]134 mmol/ALjq388 - 144 mmol/LMMary Rutan Hospital, HIUrea nitrogen [Mass/Vol]14 mg/dL6 - 20 mg/dLAkron Children's Hospital, HICBCon 07-21-2020 Erythrocyte distribution width (RBC) [Ratio]12.3 %11.8 - 14.4 %[facility], HIHematocrit (Bld) [Volume fraction]48.7 %40.7 - 50.3 %[facility], [place] Hemoglobin (Bld) [Mass/Vol]17.4 g/tSEfjx03 - 17 g/dLLowpoint, [place] Interpretation and review of laboratory resultsAbnormAdena Pike Medical Center, HIMCH (RBC) [Entitic mass]33.4 pg25.2 - 33.5 pgAkron Children's Hospital, HIMCHC (RBC) [Mass/Vol]35.7 g/wUEcdn27.4 - 34.8 g/dLAkron Children's Hospital, HIMCV (RBC) [Entitic vol]93.5 fL82.6 - 102.9 fLLowpoint, KYPlatelet mean volume (Bld) [Entitic vol]10.1 fL8.1 - 13.5 fLAkron Children's Hospital, HIPlatelets (Bld) [#/Vol]206 10*3/[facility], HIRBC (Bld) [#/Vol]5.21 10*6/uL4.21 - 5.77 m/[facility], HIWBC (Bld) [#/Vol]7.8 10*3/[facility], HIWBC (Bld) [#/Vol] 0.0 10*3/uL0.0 per 100 WBCLowpoint, KYLipid Panelon 07-21-2020 Cholesterol [Mass/Vol]190 mg/dL<200[place], KYComment on above: Cholesterol Guidelines: <200 Desirable 200-240 Borderline >240 Undesirable Cholesterol in HDL [Mass/Vol]36 mg/dLLow>40[facility]- [place], KYComment on above: HDL Guidelines: <40 Undesirable 40-59 Borderline >59 Desirable Cholesterol in LDL [Mass/Vol]107 mg/dL0 - 130 mg/dLLowpoint, KYComment on above: LDL Guidelines: <100 Desirable 100-129 Near to/above Desirable 130-159 Borderline >159 Undesirable Direct (measured) LDL and calculated LDL are not interchangeable tests. Cholesterol in VLDL [Mass/Vol]NOT REPORTEDHigh1 - 30 mg/dLLowpoint, [place] Cholesterol.total/Cholesterol in HDL [Mass ratio]5.3 {ratio}High<5[place], KYInterpretation and review of laboratory resultsAbnormalLowpoint, KYTriglyceride [Mass/Vol]235 mg/dLHigh<150[place], KYComment on above: Triglyceride Guidelines: <150 Desirable 150-199 Borderline 200-499 High >499 Very high Based on AHA Guidelines for fasting triglyceride, June 2012. Metabolic Panelon 10-75-6913TXO/1.73 sq M predicted among non-blacks MDRD (S/P/Bld) [Vol rate/Area][place], KYComment on above:Stage 1: Some kidney damage [...] body mass. Additional eGFR calculator available at: http://www.Pearl.com.[employer]/multiple_crcl_2012.htm BILIRUBIN CONJUGATED (DIRECT)on [id number], CONJUGATED0.2 mg/dLNormal0.0-0.3 The [facility] CenterComment on above:Performed By: #### DBIL #### [facility] [address] [place] [address] Taras VazquezMurray County Medical Center AUTO DIFFon 39-47-2959Vnbmoonnp (Bld) [#/Vol]0.0 103/ulNormal 0.0-0.1The [facility] CenterComment on above:Performed By: #### CBC #### [facility] [address] [place], [place] [address] Taras KarenBasophils/100 WBC (Bld)0.7 %Normal0.2-2.0The [facility] Comment on above:Performed By: #### CBC #### [facility] [address] [place] [address] Taras KarenEosinophils (Bld) [#/Vol]0.1 103/ulNormal0.0-0.7The [facility] CenterComment on above:Performed By: #### CBC #### [facility] [address] [place] [address] Taras KarenEosinophils/100 WBC (Bld)1.8 %Normal0.9-7.0The [facility] Comment on above:Performed By: #### CBC #### [facility] [address] [place] [address] Taras KarenErythrocyte distribution width (RBC) [Ratio]12.5 %Frzqol94.0-15.0The [facility] CenterComment on above:Performed By: #### CBC #### [facility] [address] [place] [address] Taras KarenHematocrit (Bld) [Volume fraction]48.4 %Kpozrm51.0-54.0The [facility] CenterComment on above:Performed By: #### CBC #### [facility] [address] [place] [address] Taras KarenHemoglobin (Bld) [Mass/Vol]17.3 g/oMLkjark83.0-18.0The [facility] CenterComment on above:Performed By: #### CBC #### [facility] [address] [place] [address] Taras KarenIG #0.02 10e3/ulNormal0.00-0.03The [facility] CenterComment on above:Performed By: #### CBC #### [facility] [address] [place] [address] Taras KarenIG %0.3 %Normal0.0-0.5The [facility] CenterComment on above: Performed By: #### CBC #### [facility] [address] [place] [address] Taras KarenLymphocytes (Bld) [#/Vol]1.9 103/ulNormal1.2-3.8The [facility] CenterComment on above:Performed By: #### CBC #### [facility] [address] [place] [address] Taras KarenLymphocytes/100 WBC (Bld)30.5 %Kdmmxk84.5-60.0[facility] Comment on above:Performed By: #### CBC #### [facility] [address] [place] [address] Taras KarenMANUAL DIFF REQNONormalThe [facility] CenterComment on above: Performed By: #### CBC #### [facility] [address] [place] [address] Taras KarenMCH (RBC) [Entitic mass]33.6 upClulec30.9-34.0[facility] Comment on above:Performed By: #### CBC #### [facility] [address] [place] [address] Taras KarenMCHC (RBC) [Mass/Vol]35.7 g/dLCritically high29.9-35.2[facility]'S Medical CenterComment on above:Performed By: #### CBC #### [facility] [address] [place] [address] Taras KarenMCV (RBC) [Entitic vol]94.0 qJVlboet33.0-94.0[facility] Comment on above:Performed By: #### CBC #### [facility] [address] [place] [address] Taras KarenMonocytes (Bld) [#/Vol]0.5 103/ulNormal0.3-0.8ThGalion Hospital Comment on above:Performed By: #### CBC #### [facility] [address] [place] [id number] Taras KarenMonocytes/100 WBC (Bld)8.0 %Normal1.7-12.0[facility] Comment on above:Performed By: #### CBC #### [facility] [address] [place] [address] Taras KarenNeutrophils (Bld) [#/Vol]3.6 103/ulNormal1.4-6.5ThGalion HospitalComment on above:Performed By: #### CBC #### [facility] [address] [place] [address] Taras KarenNeutrophils/100 WBC (Bld)58.7 %Xkoehr89.0-75.0[facility] Comment on above:Performed By: #### CBC #### [facility] [address] [place] [address] Taras KarenPlatelet mean volume (Bld) [Entitic vol]10.4 fLNormal9.5-13.5ThGalion HospitalComment on above:Performed By: #### CBC #### [facility] [address] [place] [address] Taras KarenPlatelets (Bld) [#/Vol]203 103/wbVsoxpn875-763DzaBarney Children'S Medical Center Comment on above:Performed By: #### CBC #### [facility] [address] [place] [address] Taras KarenRBC (Bld) [#/Vol]5.15 106/ulNormal4.70-6.10ThGalion Hospital Comment on above:Performed By: #### CBC #### [facility] [address] [place] [address] Taras KarenWBC (Bld) [#/Vol]6.1 103/ulNormal4.0-11.0[facility] Comment on above:Performed By: #### CBC #### [facility] [address] [place] [address] Taras KarenGLYCOHEMOGLOBIN A1Con 20-50-5402Myadcbq [Mass/Vol]232 mg/dLWestern Reserve HospitalComment on above:Performed By: #### A1C #### [facility] [address] [place], [place] [address] Taras GezzmCsF5i (Bld) [Mass fraction]9.7 %Critically high<=6.0[facility]'S Medical CenterComment on above:Performed By: #### A1C #### [facility] [address] [place] [address] Taras KarenLIPID PROFILEon [id number]-HDL RATIO NORMSEE [facility] Ontario HospitalComment on above:Result Comment: 3.3 - 4.4 LOW RISK 4.4 - 7.1 AVERAGE RISK 7.1 - 11.0 MODERATE RISK >11.0 HIGH RISKPerformed By: #### CMP, LIPID #### [facility] [address] [place] [address] Taras KarenCholesterol [Mass/Vol]244 mg/dLCritically high<=200The [facility] Medical CenterComment on above:Performed By: #### CMP, LIPID #### [facility] [address] [place] [address] Taras KarenCholesterol in HDL [Mass/Vol]> or = 60 mg/dl - LOW CARDIOVASCULAR RISK <40 mg/dl - HIGH CARDIOVASCULAR RISKWestern Reserve HospitalCombronson methodist hospital on above:Performed By: #### CMP, LIPID #### [facility] [address] [place] [address] Taras KarenCholesterol in HDL [Mass/Vol]35 mg/dLWestern Reserve Hospital Comment on above:Performed By: #### CMP, LIPID #### [facility] [address] [place] [address] Taras KarenCholesterol in LDL [Mass/Vol]179.8 mg/dLWestern Reserve Hospital Comment on above:Performed By: #### CMP, LIPID #### [facility] [address] [place], [place] [address] Taras KarenCholesterol in LDL [Mass/Vol]SEE [facility] Comment on above:Result Comment: <100 mg/dl OPTIMAL 100 - 129 mg/dl NEAR OR ABOVE OPTIMAL 130 - 159 mg/dl BORDERLINE HIGH 160 - 189 mg/dl HIGH >190 mg/dl VERY HIGHPerformed By: #### CMP, LIPID #### [facility] [address] [place], [place] [address] Taras KarenCholesterol.total/Cholesterol in HDL [Mass ratio]7.0 {ratio}Normal The [facility] Medical CenterComment on above:Performed By: #### CMP, LIPID #### [facility] [address] [place], [place] [address] Taras KarenTriglyceride [Mass/Vol]146 mg/dLNormal<=150[facility] Comment on above:Performed By: #### CMP, LIPID #### [facility] [address] [place] [address] Taras KarenVLDL CALC29.2 mg/dLNormalThGalion HospitalComment on above: Performed By: #### CMP, LIPID #### [facility] [address] [place], [place] [address] Taras KarenPROF 14(COMP METB)on 32-78-3760Ycozsrq [Mass/Vol]4.2 g/dLNormal 3.5-5.0[facility]'S Medical CenterComment on above:Performed By: #### CMP, LIPID #### [facility] [address] [place], [place] [address] Taras KarenAlbumin/Globulin [Mass ratio]1.3 {ratio}NormalBarney Children'S Medical Center Comment on above:Performed By: #### CMP, LIPID #### [facility] [address] [place], [place] [address] Taras KarenALP [Catalytic activity/Vol]66 U/AMjnxex84-882OtiBarney Children'S Medical Center Comment on above:Performed By: #### CMP, LIPID #### [facility] [address] [place], [place] [address] Taras KarenALT [Catalytic activity/Vol]66 U/ADdtsgq67-77NlbBarney Children'S Medical Center Comment on above:Performed By: #### CMP, LIPID #### [facility] [address] [place], [place] [address] Taras KarenAnion gap [Moles/Vol]11.4 mmol/LNormalBarney Children'S Medical CenterComment on above:Performed By: #### CMP, LIPID #### [facility] [address] [address] Taras KarenAST [Catalytic activity/Vol]31 U/IAaxhpt15-26SisBarney Children'S Medical Center Comment on above:Performed By: #### CMP, LIPID #### [facility] [address] [address] Taras KarenBilirubin Ql (U)0.8 mg/dLNormal0.2-1.3TLake County Memorial Hospital - WestComment on above:Performed By: #### CMP, LIPID #### [facility] [address] [address] Taras KarenCalcium [Mass/Vol]9.7 mg/dLNormal8.4-10.2[facility] Comment on above:Performed By: #### CMP, LIPID #### [facility] [address] [address] Taras KarenChloride [Moles/Vol]101 mmol/WYfkksp45-922VofBarney Children'S Medical Center Comment on above:Performed By: #### CMP, LIPID #### [facility] [address] [place] [address] Taras KarenCO2 [Moles/Vol]29.1 mmol/RSheqth92.0-30.0[facility] Comment on above:Performed By: #### CMP, LIPID #### [facility] [address] [address] Taras KarenCreatinine [Mass/Vol]0.98 mg/dLNormal0.66-1.25The [facility] Comment on above:Performed By: #### CMP, LIPID #### [facility] [address] [place] [address] Taras KarenEGFR-AF UGANDAN>60Normal>=60Barney Children'S Medical CenterComment on above: Performed By: #### CMP, LIPID #### [facility] [address] [address] Taras KarenEGFR-NON AF UGANDAN>60Normal>=60The [facility] CenterComment on above:Performed By: #### CMP, LIPID #### [facility] [address] [address] Taras KarenGlobulin (S) [Mass/Vol]3.3 g/dLNormalThGalion HospitalComment on above:Performed By: #### CMP, LIPID #### [facility] [address] [address] Taras KarenGlucose [Mass/Vol]248 mg/dLCritically qzdw29-018Aig [facility] CenterComment on above:Performed By: #### CMP, LIPID #### [facility] [address] [place] [address] Taras KarenPotassium [Moles/Vol]4.5 mmol/LNormal3.4-5.0The [facility] Comment on above:Performed By: #### CMP, LIPID #### [facility] [address] [place] [address] Taras KarenProtein [Mass/Vol]7.5 g/dLNormal6.1-8.2The [facility] CenterComment on above:Performed By: #### CMP, LIPID #### [facility] [address] [place] [address] Taras KarenSodium [Moles/Vol]137 mmol/WMkzwks491-455Gwb [facility] Comment on above:Performed By: #### CMP, LIPID #### [facility] [address] [place] [address] Taras KarenUrea nitrogen [Mass/Vol]13.0 mg/dLNormal9.0-20.0The [facility] CenterComment on above:Performed By: #### CMP, LIPID #### [facility] [address] [place] [address] Taras KarenUrea nitrogen/Creatinine [Mass ratio]13.3 mg/mgNormalThe [facility] CenterComment on above:Performed By: #### CMP, LIPID #### [facility] [address] [place] [address] Taras Cathi Vital Signs Date TimeVital SignValuePerforming GmesjrsqlTeraocgj29-72-0979 08:39-0400 Diastolic blood ypxlbfrk05 mm[Hg]Rajat Zeng [phone]-Syrtp[address] [place] [address] General [place] 11-30-2023 08:39-0400Mean blood ubnnptis037 mm[Hg]Rajat Cobosy [phone]-Ybtie[address] [place] [address] General Surgery [place] 11-30-2023 08:39-0400Systolic blood shmmwvee532 mm[Hg]Rajat Majorurany [phone]-Xhbhc[address] [place] [address] General Surgery [place] 11-30-2023 08:31-0400Blood Pressure LocationJogabriela Mourany [phone]-Fosxq[address] [place] [address] General Surgery [place] 11-30-2023 08:31-0400Diastolic blood oaysolyb457 mm[Hg]Rajat Zeng [phone]-Rixsv[address] [place] [address] General Surgery [place] 11-30-2023 08:31-0400Heart rate86 /minJohn Mourany [phone]-Gkuvf[address] [place] [address] General Surgery [place] 11-30-2023 08:31-0400Respiratory rate16 /minJohn Mourany [phone]-Bkwna[address] [place] [address] General Surgery [place] 11-30-2023 08:31-0400Systolic blood vorrmvwj799 mm[Hg]Rajat Zeng [phone]-Kobhg[address] [place] [address] General Surgery [place] 10-26-2023 10:10-0500Blood Pressure LocationJohn Mourany [phone]-Nnkwv[address] [place] [address] General Surgery [place] 10-26-2023 10:10-0500Diastolic blood jfgtawhv04 mm[Hg]Rajat Zeng [phone]-Yxiuy[address] [place] [address] General Surgery [place] 10-26-2023 10:10-0500Heart rate88 /minJohn Mourany [phone]-OuebeKettering Health [facility] [place] 10-26-2023 10:10-0500Respiratory rate18 /Devin Zeng [phone]-UgjeyKettering Health Behavioral Medical Center General [facility] 10-26-2023 10:10-0500Systolic blood ydketicl858 mm[Hg]Rajat Zeng [phone]-ElviqZanesville City Hospital Encounters Encounter DateEncounter TypeCare ProviderFacilityStart: 45-77-7388ibbtiewizoRzgb L SchwabFacility:[facility] BellevueStart: 73-96-8684civfnsuzwbMjnm L Lana Facility: [facility] BellevueStart: 07-21-2025 End: 40-37-4254nbwpcbbnhwHUG Emily L SchwabFacility:FTMCStart: 06-30-2025 End: 33-98-1616wonhpqtwjfYlrp L SchwabFacility: FM BellevueStart: 05-14-2025 End: 40-08-9238bgqmfuspuyMWREIC A LEHMANNFacility: FM BellevueStart: 04-07-2025 End: 06-71-0844hksedmvjkmTTCPXT A LEHMANNFacility: FM BellevueStart: 01-13-2025 End: 51-77-9527pvoimuvkpeVOMQSJ A LEHMANNFacility: FM BellevueStart: 10-14-2024 End: 04-55-8633Vab Drop offSHELLY A LEENA [facility] Start: 10-14-2024 End: 32-73-6166qqphmzmqnnAOZAXH A LEHMANNFacility: FM BellevueStart: 08-15-2024 End: 64-08-1970ldjeiaxkraFNVKLW A LEHMANNFacility:[facility] BellevueStart: 07-10-2024 End: 87-49-3465Mpx Drop offSHELLY A LEENA [facility] Start: 07-10-2024 End: 52-80-0510xgbcztxstkAVTSXV A LEHMANNFacility:FT FM BellevueStart: 05-15-2024 End: 60-87-9369aucygymnlkYMEXVZ A LEHMANNFacility:FT FM BellevueStart: 04-15-2024 End: 42-05-7858wxoiieamtxOMCDEE A LEHMANNFacility:FT FM BellevueStart: 04-09-2024 End: 58-47-7955hllnxczawsNEFFZM A LEHMANNFacility:FT FM BellevueStart: 03-18-2024 End: 44-94-3833iexygjxvsvKINCTB A LEHMANNFacility:FT FM BellevueStart: 02-21-2024 End: 35-78-0335Png Drop offSHELLY A LEENA [facility] Start: 02-21-2024 End: 72-14-6904lcttygoybvEKPRTI A LEHMANNFacility:FT FM BellevueStart: 02-19-2024 End: 11-87-6744siddjntieiKBLVGH A LEHMANNFacility:FT FM BellevueStart: 11-36-1079ykundwfsunKHKWMZ A LEHMANNFacility: FM BellevueStart: 11-30-2023 End: 65-50-7685jfwtonhdolSvlr E. MouranyFacility:[facility] Hospitaltart: 11-30-2023 End: 33-73-1652Gzcqxnx encounter procedureJohn E. Mourany [phone]-KrbmcKettering Health Behavioral [facility] Center General Surgery [place] Start: 11-02-2023 End: 02-35-0144pvzpffwmkeNgop E. MouranyFacility: DakotaPanTerra Networkstart: 11-02-2023 End: 63-77-8667Qaejjzu encounter procedureJohn E. Mourany [phone]-FspytSelect [facility] [place] Start: 42-48-3996zzesdgbfjaWaso MouranyFacility:[facility] Centertart: 10-26-2023 End: 55-92-9637lxjtuehfqmFsms E. MouranyFacility:[facility] Hospitaltart: 10-26-2023 End: 71-59-1311Skjuaiq encounter procedureRajat Zeng [phone]-QprfjZanesville City Hospital Start: 10-26-2023 End: 86-06-1143odkghiyqtfWHNGFC A LEHMANNFacility:FT BellevueStart: 35-13-9960xoooxblfjtWplp MouranyFacility:[facility] BellevueStart: 06-22-2023 End: 17-66-0710Frxzkzcuf department patient visitTONY Nava [facility] HospitalStart: 09-13-2022 End: 73-71-0154resoohzrvhZVLKFKPilar Tolentino [facility] HospitalStart: 09-13-2022 End: 75-69-8254Jomrbccldh hospital visit by Yeny Dixon PTMTHZ Physical TherapyComment on above:ArrivedStart: 09-01-2022 End: 91-93-7789cirxywkmdcIEUSCQPilar Tolentino [facility] HospitalStart: 09-01-2022 End: 87-03-7525Iaextzaipy hospital visit by Candido Durán APRN - JADYN Work Phone: mthz LaboratoryComment on above:Other hyperlipidemia; Type 2 diabetes mellitus without complication, without long-term current use of insulin (HCC); Essential hypertension; Erectile dysfunction, unspecified erectile dysfunction typeStart: 01-28-2021 End: 21-26-1966Qlljvszeur hospital visit by Candido Durán APRN - JADYN Work Phone: mthz LaboratoryStart: 09-13-2020 End: 09-92-3049Fdtpwukzta hospital visit by Georges Ortiz [address] [place] [address] RadiologyComment on above:Right-sided chest painStart: 07-21-2020 End: 23-16-5719Zvlqoawqjf hospital visit by Candido Fernandez LaboratoryComment on above:Type 2 diabetes mellitus without complication, without long-term current use of insulin (HCC); Essential hypertensionStart: 45-79-5813Cifjlsbsg for general adult medical examination without abnormal findingsMercy Health Willard Hospitaltart: 05-18-2020 End: 47-85-4117Wdqyfde encounter procedureDOUGSpanish Fork Hospitalcility:V0Stlrf: 00-58-2626Hjbqsri encounter procedureDOLogan Regional Hospitality:D8Tfrneeqzt for general adult medical examination without abnormal findingsKettering Health – [facility] Procedures DateProcedureProcedure DetailPerforming ClinicianStart: 66-05-1430Xtdbcghnloriu metabolic panelMonica Durán ACTIVE DIRECTORY ADMINISTRATOR - MEASUREMENT ADVISOR Work Phone: Start: 37-96-0103Zfubb panelMonica Durán ACTIVE DIRECTORY ADMINISTRATOR - MEASUREMENT ADVISOR Work Phone: Start: 37-64-0940Codvk ribs unilateral 2 viewsMonica Durán Work Phone: Start: 78-26-3584Vrvax metabolic panel calcium total Monica Durán Work Phone: Start: 56-31-8181Vbayz count complete automatedMonica Durán Work Phone: Start: 95-53-2853Ndhjt panelMonica Durán Work Phone: Start: 13-69-1606Hyraummvhkl alanine amino alt sgpt Monica Durán Work Phone: Start: 78-51-0720Bsfczxpkwfp aspartate amino ast sgot Monica Durán Work Phone: photorefractive keratoplastyRajat Zeng Structure of anterior cruciate ligament of knee joint (body structure)Rajat Zeng Plan of Treatment DateCare ActivityDetailAuthorStart: 36-48-2420Wpnmvplu foot examinationDiabetic foot examBON [facility]: 68-68-4125Cixzonkzey Monitoring Depression MonitoringTwin County Regional Healthcareart: 34-79-1898CJJ test (Diabetes, CKD 3-4, OR last GFR 15-59)GFR test (Diabetes, CKD 3-4, OR last GFR 15-59)[facility]: 48-91-2949Povsvsrdwj A1c swgafygaxbcM6J test (Diabetic or Prediabetic)[facility] Healthcareart: 85-39-3881Jhthg panelLipidsTwin County Regional Healthcareart: 03-09-2023 End: 07-53-3877Unrykew encounter ssfdcckvy38/23/2023 Office Visit Primary Care Monica Durán, ACTIVE DIRECTORY ADMINISTRATOR - MEASUREMENT ADVISOR [address] [id number] [facility] Start: 43-48-8425Clmsioyz foot examinationDiabetic foot examBON [facility] [place]art: 70-12-3357Rxturdvwve A1c odfevuiblkkG6U test (Diabetic or Prediabetic)[facility]: 52-70-5295Smyir panelLipidsTwin County Regional Healthcareart: 29-83-0736Dtqhj screening for proteinDiabetic microalbuminuria testLake Taylor Transitional Care Hospital: 83-15-0482Nkjxrylfa vaccinationFlu vaccine (#1)[facility]: 31-41-6473Oeryhsfjsl measurementCreatinine monitoringBethesda North Hospital [employer] Work Phone: start: 45-29-5735Fvxisyppt monitoringPotassium [facility] [employer] Phone: start: 84-87-4736Onhlcfxf foot examinationDiabetic foot examAkron Children's Hospital, KYStart: 49-32-7159Jgdnyjbnbs measurementCreatinine [facility], KYStart: 91-03-9798UvM8r (Bld) [Mass fraction]A1C test (Diabetic or Prediabetic)[facility]: 16-95-6309Qtzbyrfrkl A1c vdwszyfwqzvE5I test (Diabetic or Prediabetic)[facility] CenterCiris Energy Phone: start: 81-01-1750Saytk panelLipid [facility]: 72-30-9574Ssemjuujv monitoringPotassium monitoringMercy Hospital: 70-80-1244Ellqzfryx vaccinationFlu vaccine (Season Ended)[facility] [employer] Phone: start: 02-04-2021 End: 22-43-1087Ucgbloo encounter gwcwtiozs56/21/2021 Office Visit Family Medicine Monica Durán, ACTIVE DIRECTORY ADMINISTRATOR - MEASUREMENT ADVISOR [address] [place] [address] [facility]tart: 11-15-2020 End: 36-63-7081Uswlhr Visit11/15/2020 Office Visit Family Monica Camejo, ACTIVE DIRECTORY ADMINISTRATOR - MEASUREMENT ADVISOR [address] [place] [address] [facility] Start: 09-22-2020 End: 90-67-5737Xlmxpz Visit09/22/2020 Office Visit Family Monica Camejo, ACTIVE DIRECTORY ADMINISTRATOR - MEASUREMENT ADVISOR [address] [place] [address] [facility] Start: 08-20-2020 End: 88-11-3021Qhsxac Visit08/20/2020 Office Visit Family Monica Camejo, ACTIVE DIRECTORY ADMINISTRATOR - MEASUREMENT ADVISOR [address] [place] [address] [facility] Start: 41-09-5812Ipvwrzmmb vaccinationFlu vaccine (#1)[facility]: 50-35-2955Jqaruwzu screenDiabetes [facility]: 1999 DTaP/Tdap/Td vaccine (1 - Tdap)DTaP/Tdap/Td vaccine (1 - Tdap)[facility]: 39-51-7008Dikmpviyw B vaccine (1 of 3 - Risk 3-dose series) Hepatitis B vaccine (1 of 3 - Risk 3-dose series)[facility]: 64-80-0214Jhdbbsav microalbuminuria testDiabetic microalbuminuria testMercy Hospital: 49-38-3463Ohdpsspv retinal examDiabetic retinal examBON [facility]: 39-00-3468Rzzmb screening for proteinDiabetic Alb to Cr ratio (uACR) testLake Taylor Transitional Care Hospital: 52-16-9168BDV screeningHIV [facility]: 19-72-3564DBVTI-19 Vaccine (1)COVID-19 Vaccine (1)[facility] Work Phone: start: 33-76-7822Fiuzxuwy retinal examDiabetic retinal examMercy Hospital: 85-85-1435Apwei panelLipid [facility]: 82-37-3560Phlvngtafmqg 0-64 years Vaccine (1 of 1 - PPSV23) Pneumococcal 0-64 years Vaccine (1 of 1 - PPSV23)[facility]: 21-17-9289Vputqndxv vaccine (1 of 2 - 2-dose childhood series)Varicella vaccine (1 of 2 - 2-dose childhood series)[facility]: 90-21-0304REYLZ-19 Vaccine (#1)COVID-19 Vaccine (#1)[facility]: 1980 Hepatitis C screeningHepatitis C [place], [place] End: 90-43-4617LfM9k (Bld) [Mass fraction]Hemoglobin A1C Lab Routine Type 2 diabetes mellitus without complication, without long-term currentuse of insulin (HCC) Essential hypertension 1 Occurrences starting 07/21/2020 until 07/21/2020 [place], [place]Comment [place]:1 Occurrences starting 07/21/2020 until 07/21/2020HbA1c (Bld) [Mass fraction]Hemoglobin A1C Lab Routine Type 2 diabetes mellitus without complication, without long-term currentuse of insulin (HCC) Essential hypertension 07/21/2020 4:29 PM [place] End: 88-29-8451Hvhimpramr A1c/Hemoglobin.total in BloodBON [employer] Work Phone: comment on above:1 Occurrences starting 09/01/2022 until 09/01/2022 Immunizations Immunization DateImmunizationNotesCare KoitdkrsKttuyyzi30-13-9036pvbnvscdgdge polysaccharide vaccine, 23 Adriane Durán ACTIVE DIRECTORY ADMINISTRATOR - [facility] Work Phone: BON [employer] BridgesComment on above:Result Comment: 2023-10-26: VIS DATE: 07/16/2019 Payers DatePayer CategoryPayerPolicy [id number] [id number] 1.2.840.674611.1.13.239.2.7.3.616[id number] 2..840.1.771671.3.57[id number] 2.16.840.1.344844.3.57[id number] 2.16.840.1.952091.3.57[id number] 2.16.840.1.082909.3.57[id number] 2.16.840.1.581402.3.579.[id number] 2.16.840.1.152715.3.57[id number] 2.16.840.1.702727.3.57[id number] 2.16.840.1.917867.3.579.2.06260-11-0065Mujlbrt73479704 2.16840.1.863532.3.579.2.59218-01-8620Latexzq56514836 2.16840.1.907248.3.579.2.91294-15-8035Tovxiqp73641817 2.840.1.955558.3.579.2.79198-31-9231Uoufunu18199903 2.840.1.705212.3.579.2.52198-21-8701Ctfsjdm02135270 2.840.1.487829.3.579.2.77197-08-7952Kzyzady48199030 2.840.1.679205.3.579.2.37266-37-4709Yncxtzo88538626 2.840.1.341920.3.579.2.06767-59-3797Zbhfvlh32981709 2.840.1.422820.3.579.[id number] 2.840.1.324997.3.579.2.18724-34-8761Noygifu88580819 2.840.1.703285.3.579.2.79082-51-6722Ccibzcf45399947 2.16840.1.794046.3.579.2.70240-98-7507Vkmyyon68861845 2.840.1.939844.3.579.[id number] 2.16.840.1.370393.3.579.2.03868-82-6772Gjcrwbw35283579 2.16.840.1.354293.3.579.2.82631-04-7420Qanyotv24692793 2.16.840.1.923739.3.57[id number] 2.16.840.1.013460.3.579.2.99872-86-7594Nipcnsm12186695 2.16.840.1.988375.3.579.2.93369-64-4598Jgmadey69392467 2.16.840.1.438205.3.579.2.03515-79-2806Iyriplv22366257 2.16.840.1.312283.3.579.2.51737-76-5741Svluukd25920415 2.16.840.1.457493.3.579.2.04454-24-6472Fexixtz59576945 2.16.840.1.337563.3.579.2.75242-18-0296Xtyopsy67422235 2.16.840.1.405509.3.579.2.72713-71-8398Wtbwfma36190390 2.16.840.1.034271.3.579.2.39104-24-3230Incp-ruw79011593494-67-7747Lofijqg [id number] 1.2.840.440233.1.13.239.2.7.3.562367.315 Social History DateTypeDetailFacilityStart: 07-21-2020 End: 82-04-3648Rzucgte smoking status NHISCurrent every day smokerSENTARA HALIFAX REGIONAL HOSPITALHistory of tobacco useCiHumboldt County Memorial Hospital: 07-21-2020 End: 61-07-9327Fqezyuv use and exposureNever usedAkron Children's Hospital, LAYOLoma: 07-21-2020 End: 36-76-0622Qsbvoes SDOH Xfaumjtaf7EhtuzAkron Children's Hospital, LAYOLoma: 07-21-2020 End: 50-97-9082Jeclcwz SDOH Food Rvbta5CsdrcAkron Children's Hospital, LAYOart: 07-21-2020 History SDOH Transport Hcp5NiigmAkron Children's Hospital, KYSex Assigned At BirthNot on file [facility], LAYOLoma: 85-60-0338Wmrgzpcuok smoked current (pack per day) - ReportedBethesda North Hospital [employer] Work Phone: start: 46-69-4776Ber Assigned At [facility] Community HospitalTobacco2 packs a day Tobacco Use:.[facility] Tobacco smoking statusNo Smoking Status EnteredEast Liverpool City Hospital Sex [facility] Start: 62-28-9442Cosiccv smoking statusHeavy tobacco smoker (finding)[facility] Cantonobacco smoking statusNeverGalion Community Hospitaltart: 02-19-2024 End: 49-37-9034Nhrtrll smoking statusEx-smoker (finding)[facility] Family Medicine [facility] Procedure CodeEquipment CodeEquipment Original TextEquipment IdentifierDates Dispense sufficient amount for indicated testing frequency plus additional to accommodate PRN testing needs. Dispense all needed supplies to include: monitor, strips, lancing device, lancets, controlsolutions, alcohol swabs.[id number] Start: 09-02-2022 Functional Status FnmwWflwgaqzxfLpvojkRyqfpchm69-01-2903Mvzhnuhvqe StatusN/[facility]02-09-2024Functional StatusN/[facility] Clinical Notes 09-13-2022 to 04-07-2025 Note Date & SkgkLqppGemzwhmy33-98-1952 NotePatient Education Endocrinology Blood Glucose Monitoring, Adult [...] Where to find more information ??? The [place] Diabetes Association: diabetes.org ??? The Association of [...] levels in y (more content not included)... [facility]11-29-2024 NotePatient Education Cardiovascular Managing Your Hypertension Hypertension, [...] changes are not enough (more content not included)...[facility]10-24-2024 Note Patient Education Endocrinology Diabetes Mellitus and [...] Carrots. Green beans. Tomatoes. Peppers. Onions. Cucumbers. [place] sprouts. Grains Whole grains, such as whole-wheat or whole- (more content not included)...[facility]07-02-2024 NotePatient Education Emergency Medicine Heart Attack A heart attack occurs when blood and oxygen supply to the heart is cut off. A heart attack can cause damage to the heart that cannot be fixed. A heart attack is also called a myocardial infarction, or PA. If you think you are having a [...] these instructions at home: Medicines ? Take csfq-kdz-xjlmjqk and prescription medicines only as told by [...] skipping beats. ? You (more content not included)...[facility]02-09-2024 Hospital Discharge instructions Patient Education 10/26/2023 10:57:52 [...] ?Hypothyroidism. ?Polycystic ovarian syndrome (PCOS). ?Binge-eating disorder. ?Benton syndrome. Taking certain medicines, such as steroids, [...] food choices, such as grocery stores and [employer] markets. What are the signs or symptoms? [...] and how much exercise you get. Take xsyo-yfu-accrztx and prescription medicines only as told by [...] provider. Document Revised: 04/11/2022 Document Reviewed: 04/11/2022 [employer] Patient Education 2022 [employer]. [facility] General Surgery [place] 12-28-2022 History of Present illness Narrative* Garcia Dixon PT - 09/13/2022 6:15 PM EST [facility] Physical Therapy Orthotic Fitting Plan of Care Date: 09/13/2022 Patient Name: Sultana Joshua : 1980 (41 y.o.) CSN #: [id number] Referring Physician: Monica Durán APRN * Diagnosis: [...] Signature: Date: 09/13/2022 documented in this encounterB[facility] [employer] Phone: evaluation + Plan note Future Appointments Appointment Date:11/02/2023 08:40:00 AM Scheduled Provider:Rajat Zeng MD Location:[facility] Appointment Type:[facility] 15 [facility] Evaluation + Plan note Future Appointments Appointment Date:11/30/2023 08:40:00 AM Scheduled Provider:Rajat Zeng MD Location:[facility] Appointment Type:[facility] 15 [facility] Evaluation + Plan note Future Appointments Appointment Date:03/18/2024 07:20:00 AM Scheduled Provider:PASQUALE STERN CNP Location:[facility] Appointment Type:FM Open Future Scheduled Tests Laboratory* [facility] Future Appointments Appointment Date:08/15/2024 08:00:00 AM Scheduled Provider:PASQUALE STERN CNP Location:[facility] Appointment Type:FM Open Future Scheduled Tests Laboratory* HgbA1c 12/07/23 [facility] Evaluation + Plan note Future Appointments Appointment Date:01/13/2025 07:20:00 AM Scheduled Provider:PASQUALE STERN CNP Location:[facility] Appointment Type:FM Open Future Scheduled Tests Laboratory* HgbA1c 12/07/23 [facility] evaluation note* Diagnosis Other hyperlipidemia Type 2 diabetes mellitus without complication, without long-term current use of insulin (HCC) Essential hypertension Unspecified essential hypertension Erectile dysfunction, unspecified erectile dysfunction type documented in this encounter [facility] Work Phone: Hospital course Narrative No data available for this section [facility] Hospital Discharge instructions No data available for this section [facility] Progress note No data available for this section [facility] Assessments Diagnosis Type 2 diabetes mellitus without complication, without long-term current use of insulin (HCC) Essential hypertension Unspecified essential hypertension Diagnosis Right-sided chest pain Advance Directives No Advanced Directives Records FoundDocuments on File TypeDate RecordedPatient RepresentativeExplanationACP-Advance DirectiveACP-Power of Rail Operator Summary Purpose Family History No Family History [...] section and content) DATE CREATED AUTHOR 07/27/2020 [facility] DATE CREATED AUTHOR AUTHOR'S ORGANIZ ATION 06/25/2023 [facility] DATE CREATED AUTHOR AUTHOR'S ORGANIZ ATION 02/23/2024 [facility] DATE CREATED AUTHOR AUTHOR'S ORGANIZ ATION 03/19/2024 [facility] DATE CREATED AUTHOR AUTHOR'S ORGANIZ ATION 08/17/2024 [facility] DATE CREATED AUTHOR AUTHOR'S ORGANIZ ATION 10/16/2024 [facility] DATE CREATED AUTHOR AUTHOR'S ORGANIZ ATION 01/15/2025 [facility] DATE CREATED AUTHOR AUTHOR'S ORGANIZ ATION 04/09/2025 [facility] DATE CREATED AUTHOR AUTHOR'S ORGANIZ ATION 07/23/2025 [facility] Care Teams (unrecognized sec tion and content) Team MemberRelationshipSpecialtyStart DateEnd Date Monica Durán, ACTIVE DIRECTORY ADMINISTRATOR - MEASUREMENT ADVISOR [address] [place] [address] PCP - GeneralFamily Nurse Ntvsdfycnojm93/4/20Team MemberRelationshipSpecialty Start DateEnd Date Monica Durán, ACTIVE DIRECTORY ADMINISTRATOR - MEASUREMENT ADVISOR [address] [place] [address] PCP - GeneralFamily Nurse Ryapuxqgvpca62/4/20 FOR RECORDS PERTAINING TO PATIENTS WHO ARE [...] BE BASED ON THE PRIMARY CLINICAL RECORDS. [facility] [employer] provides no warranty or guarantee of the accuracy or completeness of information in this document.
[2025-08-17 13:29] LABS: Estimated GFR (African America >60 (>=60 mL/min/1.73m^2); Estimated GFR (Non-African Ame >60 (>=60 mL/min/1.73m^2)
== END 2025-08-17 12:39 | disposition home or self-care (01) ==
LOC: LAB 12:38
PROVIDERS: PCP Nurse Practitioner Family; Visit Provider Internal Medicine Infectious Disease
DX: A41.02 Sepsis due to Methicillin resistant Staphylococcus aureus (principal)
CPT/HCPCS: 36415; 82565; 86140

== ENCOUNTER 2025-08-24 11:11 | Outpatient (REF) | payer BC, SELFPAY ==
--- OUTSIDE RECORDS SUMMARY | 2025-08-24 11:21 | XMS_ITS | CCD ---
Author Organization [facility] Care Team Providers Care Liner Inserter Name Role Phone Monica Durán Primary Care Provider HOY, NICOLETTE Admitting Unavailable HOY, NICOLETTE Attending Unavailable HOY, NICOLETTE Consulting Unavailable HOY, NICOLETTE Attending Unavailable HOY, NICOLETTE Admitting Unavailable Luis Armando ENVIRONMENTAL COMPLIANCE 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Monica Primary Care Provide r Luis Armando ENVIRONMENTAL COMPLIANCE 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Monica Primary Care Provide r MONICA DURÁN Referring Unavailable MONICA DURÁN Primary Care Unavailable MONICA DURÁN Referring Unavailable MONICA DURÁN Primary Care Unavailable TONY VENTURA Attending Unavailable MONICA DURÁN Primary Care Unavailable OSMEL STERNY Margarita Primary Care Physician PASQUALE STERN Primary Care Physician Rajat Zeng Attending Unavailable Rajat Zeng Attending Unavailable Raajt Zeng Attending Unavailable LEENA, PASQUALE A Admitting Unavailable LEENA, PASQUALE A Attending Unavailable LEENA, PASQUALE A Attending Unavailable LEENA, PASQUALE A Attending Unavailable LEENA, PASQUALE A Attending Unavailable LEENA, PASQUALE A Attending Unavailable LEENA, PASQUALE A Attending Unavailable LEENA, PASQUALE A Admitting Unavailable LEENA, PSAQUALE A Attending Unavailable LEENA, PASQUALE A Attending [...] Unavailable LEENA, PASQUALE A Attending Unavailable Lana, ELECTRONEURODIAGNOSTIC TECHNOLOGIST Emily L Attending Unavailable Lana, ELECTRONEURODIAGNOSTIC TECHNOLOGIST Emily L Admitting Unavailable Lana, Emily L [...] [No Known Medication Allergies]Propensity to adverse reactions (disorder)[facility] Repository Medications Current Medications MedicationDrug Class(es)DatesSig (Normalized)Sig (Original)amLODIPine 10 mg oral tablet (11 sources)Dihydropyridine Calcium Channel BlockerStart: 59-47-8586oklx 1 tablet by mouth once dailyamLODIPine 10 mg Tab See Instructions, TAKE ONE TABLET BY MOUTH ONCE DAILY, # 90 tab(s), Refills(s)1, Pharmacy: [facility] 185, cm, 10/14/24 7:46:00 EST, Height/Length Dosing, 121.3, kg, 10/14/24 7:46:00 EST, Weight Dosing Start Date: 10/14/24 Status: OrderedStart: 06-18-2024 take 1 tablet by mouth once dailyamLODIPine 10 mg Tab 10 mg = 1 tab(s), Oral, Daily, # 90 tab(s), Refills(s) 1, Pharmacy: [facility] 185, cm, 05/15/24 7:36:00 EDT, Height/Length Dosing, 121.8, kg, 05/15/24 7:36:00 EDT, Weight Dosing Start Date: 06/18/24 Status: OrderedStart: 66-52-4730abrn 1 tablet by mouth once dailyamLODIPine 10 mg Tab 10 mg = 1 tab(s), Oral, Daily, # 90 tab(s), Refills(s) 0 Start Date: 10/26/23 Status: OrderedStart: 23-60-7516tqdy 1 tablet by mouth once dailyamLODIPine (NORVASC) 10 MG tablet Take 1 tablet by mouth daily 90 tablet 3 09/01/2022 ActiveStart: 01-30-6375opgm 1 tablet by mouth once dailyamLODIPine (NORVASC) 10 MG tablet Take 1 tablet by mouth daily 90 tablet 2 01/28/2021 ActiveStart: 30-37-5460wcjq 1 tablet by mouth once daily amLODIPine (NORVASC) 5 MG tablet Take 1 tablet by mouth daily 30 tablet 3 08/17/2020 Activeamoxicillin 500 mg oral capsule (1 source)Penicillin-class AntibacterialStart: 47-70-1595mqjo 1 capsule by mouth every twelve hoursamoxicillin 500 mg Cap 500 mg = 1 cap(s), Oral, q12hr, # 20 cap(s), Refills(s) 0, Pharmacy: [facility], 185, cm, 10/14/24 7:46:00 EST, Height/Length Dosing, [...] mg oral capsule (2 sources)Nonsteroidal Anti-inflammatory DrugStart: 55-82-0881evom 1 capsule by mouth twice dailycelecoxib (CELEBREX) 100 MG capsule Take 1 capsule by mouth 2 times daily 30 capsule 1 09/13/2020 Activecephalexin 500 mg oral capsule (4 sources)Cephalosporin AntibacterialStart: 11-44-3810vqhdaaejgy 500 mg Cap Refills(s) 0 Start Date: 10/26/23 Status: OrderedStart: 09-01-2022 End: 73-39-6585ogrl 1 capsule by mouth four times dailycephALEXin (KEFLEX) 500 MG capsule Take 1 capsule by mouth 4 times daily for 7 days 28 capsule 0 09/08/2022 Activecholecalciferol 0.125 mg oral tablet (2 sources)Vitamin DCholecalciferol (VITAMIN D3) 125 MCG (5000 UT) TABS Take by mouth 0 Activecitalopram 20 mg oral tablet (12 sources)Serotonin Reuptake InhibitorStart: 82-35-4088cznl 10 mg by mouth once dailycitalopram 20 mg Tab 10 mg = 0.5 tab(s), Oral, Daily, # 30 tab(s), Refills(s) 0, Pharmacy: [facility] 185, cm, 04/09/24 7:36:00 EDT, Height/Length Dosing, 118.4, kg, 04/09/24 7:36:00 EDT, Weight Dosing Start Date: 04/30/24 Status: OrderedStart: 63-38-3103fdru 10 mg by mouth once dailycitalopram 20 mg Tab 10 mg = 0.5 tab(s), Oral, Daily, # 45 tab(s), Refills(s) 0 Start Date: 10/26/23 Status: OrderedStart: 16-46-6937kqnk 0.5 tablet by mouth once daily citalopram (CELEXA) 20 MG tablet TAKE ONE-HALF (1/2) TABLET BY MOUTH DAILY 30 tablet 0 09/02/2022 ActiveStart: 24-14-8851ylwe 0.5 tablet by mouth once daily citalopram (CELEXA) 20 MG tablet TAKE 1/2 TABLET BY MOUTH ONE TIME DAILY 45 tablet 1 10/20/2020 Activetake 1 tablet by mouth once dailycitalopram (CELEXA) 20 MG tablet Take 20 mg by mouth daily 0 Activeenalapril maleate 20 mg oral tablet (10 sources)Angiotensin Converting Enzyme InhibitorStart: 41-87-4409jnli 1 tablet by mouth once dailyenalapril 20 mg Tab 20 mg = 1 tab(s), Oral, Daily, # 90 tab(s), Refills(s) 1, Pharmacy: [facility] 185, cm, 10/14/24 7:46:00 EST, Height/Length Dosing, 121.3, kg, 10/14/24 7:46:00 EST,Weight Dosing Start Date: 10/14/24 Status: OrderedStart: 03-12-9490gfub 1 tablet by mouth once dailyenalapril 10 mg Tab 10 mg = 1 tab(s), Oral, Daily, # 30 tab(s), Refills(s) 0, Pharmacy: [facility], 185, cm, 07/10/24 7:24:00 EDT, Height/Length Dosing, 119.9, kg, 07/10/24 7:24:00 EDT, Weight Dosing Start Date: 07/10/24 Status: OrderedStart: 14-50-2094bpxy 1 tablet by mouth once daily enalapril 20 mg Tab 20 mg = 1 tab(s), Oral, Daily, # 90 tab(s), Refills(s) 1, Pharmacy: [facility], [facility] 185, cm, 05/15/24 7:36:00 EDT, Height/Length Dosing, 121.8, kg, 05/15/24 7:36:00 EDT,Weight Dosing Start Date: 06/18/24 Status: OrderedStart: 00-73-8365mrva 1 tablet by mouth once dailyenalapril 5 mg Tab 5 mg = 1 tab(s), Oral, Daily, # 30 tab(s), Refills(s) 0, Pharmacy: [facility], 185, cm, 02/19/24 7:35:00 EDT, Height/Length Dosing, 119.7, kg, 02/19/24 7:35:00 EDT,Weight Dosing Start Date: 02/19/24 Status: OrderedStart: 53-58-2711heao 1 tablet by mouth once dailyenalapril 2.5 mg Tab 2.5 mg = 1 tab(s), Oral, Daily, # 90 tab(s), Refills(s) 0 Start Date: 10/26/23 Status: OrderedStart: 44-64-4465lvxc 1 tablet by mouth once dailyenalapril (VASOTEC) 2.5 MG tablet Take 1 tablet by mouth daily 90 tablet 3 09/01/2022 Activefluconazole 100 mg oral tablet (1 source)Azole AntifungalStart: 02-19-2024 End: 22-29-2276ovpz 1 tablet by mouth once dailyfluconazole 100 mg Tab 100 mg = 1 tab(s), Oral, Daily, X 7 day(s), # 7 tab(s), Refills(s) 0, Pharmacy: [facility], 185, cm, 02/19/24 7:35:00 EDT, Height/Length [...] hr extended release oral tablet (2 sources)SulfonylureaStart: 29-15-8877fzdt 1 tablet by mouth once daily glipiZIDE 10 mg ER Tab 10 mg = 1 tab(s), Oral, Daily, # 90 tab(s), Refills(s) 1, Pharmacy: [facility] 185, cm, 10/14/24 7:46:00 EST, Height/Length Dosing, 121.3, kg, 10/14/24 7:46:00 EST, Weight Dosing Start Date: 10/14/24 Status: OrderedStart: 76-61-9345vmld 1 tablet by mouth once dailyglipiZIDE 5 mg ER Tab 5 mg = 1 tab(s), Oral, Daily, # 90 tab(s), Refills(s) 1, Pharmacy: [facility] 185, cm, 05/15/24 7:36:00 EDT, Height/Length Dosing, 121.8, kg, 05/15/24 7:36:00 EDT, Weight Dosing Start Date: 06/18/24 Status: OrderedlamoTRIgine 100 mg oral tablet (3 sources)Mood Stabilizer, Anti-epileptic Agenttake 1 tablet by mouth once dailylamoTRIgine (LAMICTAL) 100 MG tablet Take 100 mg by mouth daily 0 Active metFORMIN hydrochloride 1000 mg oral tablet (12 sources)BiguanideStart: 45-45-3310cvmk 1 tablet by mouth twice daily metformin 1000 mg Tab See Instructions, TAKE ONE TABLET BY MOUTH TWICE A DAY, # 180 tab(s), Refills(s) 1, Pharmacy: [facility] 185, cm, 10/14/24 7:46:00 EST, Height/Length Dosing, 121.3, kg, 10/14/24 7:46:00 EST, Weight Dosing Start Date: 10/14/24 Status: OrderedStart: 49-99-6429cnww 1 tablet by mouth twice dailymetformin 1000 mg Tab 1,000 mg = 1 tab(s), Oral, BID, # 60 tab(s), Refills(s) 0, Pharmacy: [facility], 185, cm, 04/09/24 7:36:00 EDT, Height/Length Dosing, 118.4, kg, 04/09/24 7:36:00EDT, Weight Dosing Start Date: 05/02/24 Status: OrderedStart: 67-56-7892sill 1 tablet by mouth twice dailymetformin 1000 mg Tab 1,000 mg = 1 tab(s), Oral, BID, # 180 tab(s), Refills(s) 0 Start Date: 10/26/23Status: OrderedStart: 92-97-9826jsio 1 tablet by mouth twice daily at mealtimemetFORMIN (GLUCOPHAGE) 1000 MG tablet Take 1 tablet by mouth 2 times daily (with meals) 90 tablet Activetake 1 tablet by mouth twice daily at mealtimemetFORMIN (GLUCOPHAGE) 1000 MG tablet Take 1,000 mg by mouth 2 times daily (with meals) 0 Activemupirocin 0.02 mg/mg topical ointment (4 sources)RNA Synthetase Inhibitor AntibacterialStart: 20-22-0956fxzssgckx Top 2% Oint Refill(s) 0 Start Date: 10/26/23 Status: Ngmsrfd40 hr nicotine 0.875 mg/hr transdermal system (3 sources)Cholinergic Nicotinic AgonistStart: 07-21-2020 End: 51-46-6473zcmjl 1 dose transdermal route once dailynicotine (NICODERM CQ) 21 MG/24HR Place 1 patch onto the skin daily 42 patch 0 07/21/2020 Active omeprazole 20 mg delayed release oral capsule (9 sources)Proton Pump InhibitorStart: 99-00-4427prxx 1 capsule by mouth once dailyomeprazole 20 mg Cap-DR See Instructions, TAKE ONE CAPSULE BY MOUTH EVERY DAY, # 30 cap(s), Refills(s) 0, Pharmacy: [facility], 185, cm, 08/15/24 8:05:00 EST, Height/Length Dosing, 119.1, kg, 08/15/24 8:05:00 EST, Weight Dosing Start Date: 09/15/24 Status: OrderedStart: 44-39-3221rhqx 1 capsule by mouth once dailyomeprazole 20 mg Cap-DR 20 mg = 1 cap(s), Oral, Daily, # 30 cap(s), Refills(s) 0, Pharmacy: [facility], 185, cm, 04/09/24 7:36:00 EDT, Height/Length Dosing, 118.4, kg, 04/09/24 7:36:00 EDT, Weight Dosing Start Date: 04/30/24 Status: OrderedStart: 10-34-5985gplo 1 capsule by mouth once daily before breakfastomeprazole 20 mg Cap-DR 20 mg = 1 cap(s), Oral, Daily, before breakfast, # 90 cap(s), Refills(s) 0 Start Date: 10/26/23 Status: OrderedStart: 15-31-4759xcga 1 capsule by mouth once daily before breakfastomeprazole (PRILOSEC) 20 MG delayed release capsule TAKE 1 CAPSULE BY MOUTH ONE TIME A DAY BEFORE BREAKFAST 90 capsule 3 09/01/2022 ActiveStart: 74-62-6485aaeq 1 capsule by mouth once daily before breakfastomeprazole (PRILOSEC) 20 MG delayed release capsule Take 1 capsule by mouth every morning (before breakfast) 90 capsule 1 01/28/2021 Activepioglitazone 45 mg oral tablet (12 sources)Peroxisome Proliferator Receptor alpha Agonist, Peroxisome Proliferator Receptor gamma Agonist, ThiazolidinedioneStart: 83-43-1008mbzb 1 tablet by mouth once dailypioglitazone 45 mg Tab 45 mg = 1 tab(s), Oral, Daily, # 90 tab(s), Refills(s) 1, Pharmacy: [facility], 185, cm, 10/14/24 7:46:00 EST, Height/Length Dosing, 121.3, kg, 10/14/24 7:46:00 EST, Weight Dosing Start Date: 10/14/24 Status: OrderedStart: 26-18-6909koay 1 tablet by mouth once dailypioglitazone 45 mg Tab 45 mg = 1 tab(s), Oral, Daily, # 90 tab(s), Refills(s) 0, Pharmacy: [facility], 185, cm, 05/15/24 7:36:00 EDT, Height/Length Dosing, 121.8, kg, 05/15/24 7:36:00EDT, Weight Dosing Start Date: 06/24/24 Status: OrderedStart: 33-66-2564yhsm 1 tablet by mouth once dailypioglitazone 45 mg Tab 45 mg = 1 tab(s), Oral, Daily, # 90 tab(s), Refills(s) 1, Pharmacy: [email or web address], 185, cm, 02/19/24 7:35:00 EDT, Height/Length Dosing, 119.7, kg, 02/19/24 7:35:00EDT, Weight Dosing Start Date: 02/19/24 Status: OrderedStart: 96-70-4801pajr 1 tablet by mouth once daily pioglitazone 45 mg Tab 45 mg = 1 tab(s), Oral, Daily, # 90 tab(s), Refills(s) 0 Start Date: 10/26/23 Status: OrderedStart: 62-75-2977zflu 1 tablet by mouth once dailypioglitazone (ACTOS) 45 MG tablet TAKE 1 TABLET BY MOUTH ONE TIME DAILY 90 tablet 3 09/01/2022 Activetake 1 tablet by mouth once dailypioglitazone (ACTOS) 30 MG tablet Take 30 mg by mouth daily 0 Activesildenafil 100 mg oral tablet (2 sources)Phosphodiesterase 5 InhibitorStart: 34-78-5117mutg 1 tablet by mouth every hour as needed, then take 1 tablet by mouth every twenty-four hours as neededsildenafil (VIAGRA) 100 MG tablet Take 1 tablet by mouth as needed for Erectile Dysfunction 1 hour prior to sexual activity. Do not exceed more than 1 dose in 24 hours. 30 tablet 1 09/01/2022 Activesimvastatin 20 mg oral tablet (12 sources)HMG-CoA Reductase InhibitorStart: 92-24-0577dwxw 1 tablet by mouth once dailysimvastatin 20 mg Tab See Instructions, TAKE ONE TABLET BY MOUTH EVERY DAY, # 90 tab(s), Refills(s)1, [facility], cm, 10/14/24 7:46:00 EST, Height/Length Dosing, 121.3, kg, 10/14/24 7:46:00 EST, Weight Dosing Start Date: 10/14/24 Status: OrderedStart: 98-87-5361bfpi 1 tablet by mouth once dailysimvastatin 20 mg Tab 20 mg = 1 tab(s), Oral, Daily, # 90 tab(s), Refills(s) 1, Pharmacy: [facility], 185, cm, 05/15/24 7:36:00 EDT, Height/Length Dosing, 121.8, kg, 05/15/24 7:36:00 EDT, Weight Dosing Start Date: 06/18/24 Status: OrderedStart: 53-69-0408pmag 1 tablet by mouth once dailysimvastatin 20 mg Tab 20 mg = 1 tab(s), Oral, Daily, # 90 tab(s), Refills(s) 0 Start Date: 10/26/23 Status: OrderedStart: 84-85-7059lbzz 1 tablet by mouth once dailysimvastatin (ZOCOR) 20 MG tablet Take 1 tablet by mouth daily 90 tablet 3 09/01/2022 ActiveStart: 97-66-3539uixuysyhpxn (ZOCOR) 20 MG tabletSITagliptin 100 mg oral tablet (10 sources)Dipeptidyl Peptidase 4 InhibitorStart: 73-82-0554tovi 1 tablet by mouth once dailyJanuvia 100 mg Tab 100 mg = 1 tab(s), Oral, Daily, # 90 tab(s), Refills(s) 1, Pharmacy: [facility], 185, cm, 02/19/24 7:35:00 EDT, Height/Length Dosing, 119.7, kg, 02/19/24 7:35:00 EDT, Weight Dosing Start Date: 02/19/24 Status: OrderedStart: 23-68-1950evtc 1 tablet by mouth once daily Januvia 100 mg Tab 100 mg = 1 tab(s), Oral, Daily, # 90 tab(s), Refills(s) 0 Start Date: 10/26/23 Status: OrderedStart: 12-03-6688dlwk 1 tablet by mouth once dailySITagliptin (JANUVIA) 100 MG tablet Take 1 tablet by mouth daily 90 tablet 3 09/01/2022 ActiveStart: 10-56-9795jxtu 1 tablet by mouth once dailySITagliptin (JANUVIA) 100 MG tablet Take 1 tablet by mouth daily 90 tablet 0 01/14/2021 ActiveStart: 70-36-6669JMQAIGJ 100 MG tabletsulfamethoxazole 400 mg / trimethoprim 80 mg oral tablet (4 sources)Dihydrofolate Reductase Inhibitor Antibacterial, Sulfonamide AntimicrobialStart: 67-23-1733Pqiutcq 400 mg-80 mg Tab Refill(s) 0 Start Date: 10/26/23 Status: Orderedzinc gluconate 50 mg oral tablet (2 sources)take 1 tablet by mouth once dailyzinc gluconate 50 MG tablet Take 50 mg by mouth daily 0 Active Problems Active Problems Problem ClassificationProblemDateDocumented DateEpisodic/ChronicAnxiety disorders (5 sources)Anxiety; Translations: [Anxiety disorder, unspecified]Onset: 518318-35-9454XyvptvpIekariji mellitus without complication (17 sources)Type 2 diabetes mellitus without complication; Translations: [Type 2 diabetes mellitus without complications]Onset: 161545-91-5919Aajjgka Disorders of lipid metabolism (13 sources)Hyperlipidemia; Translations: [Other hyperlipidemia]Onset: 987293-95-5398DfgwfjePemvbqsmt hypertension (14 sources)Essential hypertension; Translations: [Essential (primary) hypertension]Onset: 718297-04-2010VolpgyvKrjv disorders (11 sources)Depressive disorder; Translations: [Major depressive disorder, single episode, unspecified]Onset: 619295-10-5548FxfnnmtUvnrt aftercare (1 source)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; Translations: [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]Onset: 51-21-6333YzuxfshvJnyhj male genital disorders (2 sources)Male erectile dysfunction, unspecified; Translations: [Impotence of organic origin]Onset: 05-36-9470HbcqczgOfdvp nervous system disorders (1 source)Paige's palsy; 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]Onset: 83-48-9396Rbkedcxr Other nutritional; endocrine; and metabolic disorders (1 source)Obesity; Translations: [Other obesity due to excess calories]Onset: 23-73-2620HaqmwgmKhnxm nutritional; endocrine; and metabolic disorders (1 source)Obese class II; Translations: [Body mass index (BMI) 35.0-35.9, adult] Onset: 78-05-3091ReqyrjkJkwow nutritional; endocrine; and metabolic disorders (8 sources)Body mass index 30+ - rtmbtim16-23-9941FlgldhtKbdjg nutritional; endocrine; and metabolic disorders (5 sources)Obesity caused by energy ldkukwiqj66-20-0925XqgniukNeqdstxs codes; unclassified (2 sources)Nicotine-filled electronic cigarette fhll18-49-1297LprezcfvVbbhsrkct and history of mental health and substance abuse codes (2 sources)Tobacco use and exposure - finding; Translations: [Tobacco use]Onset: 384958-11-4877YaqntvtVwly and subcutaneous tissue infections (9 sources)Abscess of face; Translations: [Cutaneous abscess of face]Onset: 30-17-2100Divrzven Past or Other Problems Problem ClassificationProblemDateDocumented DateEpisodic/ChronicNonspecific chest pain (4 sources)Right sided chest pain; Translations: [Non-cardiac chest pain]Onset: 555329-57-5670KhaaccxwNefwbvor codes; unclassified (3 sources)Tobacco use and exposure - finding; Translations: [Tobacco use]Onset: 044817-08-7479QetyquktSgarzvncluw; intervertebral disc disorders; other back problems (3 sources)Acute thoracic back pain; Translations: [Pain in thoracic spine] Onset: 236946-39-6214Uuovmuwv Results Test NameValueInterpretationReference RangeFacilityAmbulatory Visit Summaryon 73-14-2036Watjzkyhuj Visit SummaryAmbulatory Visit Summary SULTANA JOSHUA :1980 [...] 8:40 AM EST With: Emily Maurice Where: [address] [address]- [id number] 8:20 AM EST With: Emily Maurice Where: [address] [address]- Medications What How Much When [...] signed up for this yet, please contact 7write at [phone] to get signed up today. Language Information Language assistance services are available as needed. [facility] Office/Clinic Noteon 40-03-1894Fhgmjc Medicine Office/Clinic NoteHe[facility] Medicine Office/Clinic Note HPI Staff Pt is [...] MED In 4 weeks 07/07/2025 EDT [address] [place] [address]- Business (1) Additional Instructions: 4 weeks shoulder pain Emily Maurice FAM, MED In 3 months [address] [place] [address]- Additional Instructions: 3 months diabetes [...] 23-valent vaccine 11/07/2021 Recorded 2023-10-26: VIS DATE: 07/16/2019NoMercy HospitalComment on above:Result Comment: Electronically Signed By: Emily Maurice\.br\Date and Time Signed: 07/21/25 09:28 NKIYrnO2igi 62-56-5442JxG6o (Bld) [Mass fraction]9.9 %High<=5.9Bu[facility]rus Community HospitalComment on above:Performed By: #### [id number] #### [facility] [address] [place], [place] [address]Culixqmr Letteron [phone] LetterProvider Letter July 21, 2025 SULTANA JOSHUA [address] [place] [address] : 1980 To Whom It May Concern, Please excuse above patient from work. Date of Appointment: 07/21/2025 May Return to Work On: 07/21/2025 Sincerely, [address] [address] FdtgckNdjandMercy HospitalAmbulatory Visit Summaryon 88-01-2454Ipmhawnjhe Visit SummaryAmbulatory Visit Summary SULTANA JOSHUA :1980 [...] 8:20 AM EST With: Emily Maurice Where: [address] [address]- Medications What How Much When Why Instructions New cyclobenzaprine (cyclobenzaprine 10 mg Tab) 1 Tablets By Mouth At bedtime as needed for for spasm Left shoulder pain BMI 36.0-36.9,adult Obesity (BMI 30- 39.9) Vapes nicotine containing substance Pickup at [facility] New meloxicam (meloxicam 15 mg Tab) 1 Tablets By Mouth Every day Left shoulder pain BMI 36.0-36.9,adult Obesity (BMI 30-39.9) Vapes nicotine containing substance Pickup at [facility] New methylPREDNISolone (Medrol 4 mg Tab) 1 Packets By Mouth As Directed Left shoulder pain BMI 36.0-36.9,adult Obesity (BMI 30-39.9) Vapes nicotine containing substance Duration: 6 Days as directed on package labeling Pickup at [facility] Unchanged amlodipine (amLODIPine 10 mg Tab) [...] a day (at bedtime) Hyperlipidemia Pharmacy Information [facility]: [address] [place] [id number] [phone] Allergies No Known Medication Allergies Problems Ongoing [...] signed up for this yet, please contact 7write at [phone] to get signed up today. Language Information Language assistance services are available as needed. [facility] Medicine Office/Clinic Noteon 85-80-1664Jfqzdb Medicine Office/Clinic NoteFasturdy memorial hospital Medicine Office/Clinic Note Chief Complaint Lt [...] spasm, # 30 tab(s), Refills(s) 0, Pharmacy: [facility], 185, cm, 06/30/25 9:11:00 EDT, Height/Length Dosing, 124.1, kg, 06/30/25 9:11:00 EDT, Weight Dosing meloxicam, 15 mg = 1 tab(s), Oral, Daily, # 30 tab(s), Refills(s) 0, Pharmacy: [facility], 185, cm, 06/30/25 9:11:00 EDT, Height/Length Dosing, 124.1, kg, 06/30/25 9:11:00 EDT, WeightDosing methylPREDNISolone, = 1 packet(s), Oral, As Directed, as directed on package labeling, X 6 day(s), # 21 tab(s), Refills(s) 0, Pharmacy: [facility], 185, cm, 06/30/25 9:11:00 EDT, Height/Length Dosing, 124.1, kg, 06/30/25 9:11:00 EDT, Weight Dosing XR Shoulder Complete Left 2. BMI 36.0-36.9,adult (Z68.36: Body mass index [BMI] 36.0-36.9, adult) BMI educatoin Ordered: cyclobenzaprine, 10 mg = 1 tab(s), Oral, Bedtime, PRN for spasm, # 30 tab(s), Refills(s) 0, Pharmacy: [facility], 185, cm, 06/30/25 9:11:00 EDT, Height/Length Dosing, 124.1, kg, 06/30/25 9:11:00 EDT, Weight Dosing meloxicam, 15 mg = 1 tab(s), Oral, Daily, # 30 tab(s), Refills(s) 0, Pharmacy: [facility], 185, cm, 06/30/25 9:11:00 EDT, Height/Length Dosing, 124.1, kg, 06/30/25 9:11:00 EDT, WeightDosing methylPREDNISolone, = 1 packet(s), Oral, As Directed, as directed on package labeling, X 6 day(s), # 21 tab(s), Refills(s) 0, Pharmacy: [facility], 185, cm, 06/30/25 9:11:00 EDT, Height/Length Dosing, 124.1, kg, 06/30/25 9:11:00 EDT, Weight Dosing XR Shoulder Complete Left 3. Obesity (BMI 30-39.9) (E66.9: Obesity, unspecified) see above Ordered: cyclobenzaprine, 10 mg = 1 tab(s), Oral, Bedtime, PRN for spasm, # 30 tab(s), Refills(s) 0, Pharmacy: [facility], 185, cm, 06/30/25 9:11:00 EDT, Height/Length Dosing, 124.1, kg, 06/30/25 9:11:00 EDT, Weight Dosing meloxicam, 15 mg = 1 tab(s), Oral, Daily, # 30 tab(s), Refills(s) 0, Pharmacy: [facility], 185, cm, 06/30/25 9:11:00 EDT, Height/Length Dosing, 124.1, kg, 06/30/25 9:11:00 EDT, WeightDosing methylPREDNISolone, = 1 packet(s), Oral, As Directed, as directed on package labeling, X 6 day(s), # 21 tab(s), Refills(s) 0, Pharmacy: [facility], 185, cm, 06/30/25 9:11:00 EDT, Height/Length Dosing, 124.1, kg, 06/30/25 9:11:00 EDT, Weight Dosing XR Shoulder Complete Left 4. Vapes nicotine containing substance (Z72.0: Tobacco use) consider not vaping Ordered: cyclobenzaprine, 10 mg = 1 tab(s), Oral, Bedtime, PRN for spasm, # 30 tab(s), Refills(s) 0, Pharmacy: [facility], 185, cm, 06/30/25 9:11:00 EDT, Height/Length Dosing, 124.1, kg, 06/30/25 9:11:00 EDT, Weight Dosing meloxicam, 15 mg = 1 tab(s), Oral, Daily, # 30 tab(s), Refills(s) 0, Pharmacy: [facility], 185, cm, 06/30/25 9:11:00 EDT, Height/Length Dosing, 124.1, kg, 06/30/25 9:11:00 EDT, WeightDosing methylPREDNISolone, = 1 packet(s), Oral, As Directed, as directed on package labeling, X 6 day(s), # 21 tab(s), Refills(s) 0, Pharmacy: [facility], 185, cm, 06/30/25 9:11:00 EDT, Height/Length Dosing, 124.1, kg, 06/30/25 9:11:00 EDT, Weight Dosing XR Shoulder Complete Left Follow-u (more content not included)...[facility]testant HospitalComment on above:Result Comment: Electronically Signed By: Emily Maurice\.br\Date and Time Signed: 06/30/25 09:29 EDTProvider Letteron [phone] Letter Provider Letter June 30, 2025 SULTANA JOSHUA [address] [place] [address] : 1980 To Whom It May Concern, Please excuse above patient from work due to a doctors appointment Date of Illness: From: _ To: _ May Return to Work On:06-30-25 Restrictions: _ Comments: _ Sincerely, Family Medicine [address] [address] ZcozzoIpwwgiProtestant HospitalAmbulatory Visit Summaryon 55-11-0465Wcnctdttqr Visit SummaryAmbulatory Visit Summary SULTANA JOSHUA :1980 [...] AM EST With: PASQUALE STERN CNP Where: [facility] [address] [address]- Medications What How Much When Why Instructions New dulaglutide (Trulicity Pen 0.75 mg/ 0.5 mL subcutaneous solution) 0.75 Milligram Subcutaneous Every week Diabetes BMI 36.0-36.9,adult Obesity (BMI 30- 39.9) Vapes nicotine containing substance Tobacco use Refills: 2 Pickup at [facility]/pharmacy #[id number] Unchanged amlodipine (amLODIPine 10 mg Tab) [...] a day (at bedtime) Hyperlipidemia Pharmacy Information [facility]/pharmacy #[id number]: [address], [place] [id number] [phone] Allergies No Known Medication Allergies Problems Ongoing [...] yet, please contact Health Information Management at [phone] to get signed up today. Language Information Language assistance services are available as needed. [facility] Office/Clinic Noteon [phone] Medicine Office/Clinic NoteNorthside Hospital [facility]/Clinic Note Chief Complaint Discuss diabetes The [...] # 2 mL, Refills(s) 2, Pharmacy: [facility]/pharmacy #6177, 185,cm, 05/14/25 8:43:00 EDT, Height/Length Dosing, 124.5, kg, 05/14/25 8:43:00 EDT, Weight Dosing 2. BMI 36.0-36.9,adult (Z68.36: Body mass index [BMI] 36.0-36.9, adult) BMI 36.38 Ordered: dulaglutide, 0.75 mg, SubCutaneous, qWeek, # 2 mL, Refills(s) 2, Pharmacy: [facility]/pharmacy #6177, 185,cm, 05/14/25 8:43:00 EDT, Height/Length Dosing, 124.5, kg, 05/14/25 8:43:00 EDT, Weight Dosing 3. Obesity (BMI 30-39.9) (E66.9: Obesity, unspecified) - Continue dietary management with a focus on protein-rich foods and low-calorie beverages. Ordered: dulaglutide, 0.75 mg, SubCutaneous, qWeek, # 2 mL, Refills(s) 2, Pharmacy: [facility]/pharmacy #6177, 185,cm, 05/14/25 8:43:00 EDT, Height/Length Dosing, 124.5, kg, 05/14/25 8:43:00 EDT, Weight Dosing 4. Vapes nicotine containing substance, (Z72.0: Tobacco use)Tobacco use - Discuss potential cessation strategies for vaping nicotine-containing substances. Ordered: dulaglutide, 0.75 mg, SubCutaneous, qWeek, # 2 mL, Refills(s) 2, Pharmacy: [facility]/pharmacy #6177, 185,cm, 05/14/25 8:43:00 EDT, Height/Length Dosing, [...] refills Glucometer, See Instru (more content not included)...Protestant HospitalComment on above:Result Comment: Electronically Signed By: PASQUALE STERN CNP\.br\Date and Time Signed: 05/14/25 09:19 EDTAmbulatory Visit Summaryon 60-68-6333Dibfejoxna Visit SummaryAmbulatory Visit Summary SULTANA JOSHUA :1980 [...] 6 months Comments: Diabetes & HTN Where: [address] [place] [phone] [facility] (1) You Need to Complete the [...] Capsules By Mouth Every day Pickup at [facility] #72 Changed simvastatin (simvastatin 20 mg Tab) 1 Tablets By Mouth Once a day (at bedtime) Pickup at [facility] Unchanged enalapril (enalapril 20 mg Tab) 1 Tablets By Mouth Every day [facility]) [facility] Unchanged amlodipine (amLODIPine 10 mg [...] physician if questions or concerns Pharmacy Information [facility]: [address], [place] [id number] [phone] What How Much When Why Comments Stop [...] diabetes, you shabnam (more content not included)...NormalFisher [facility] w/ Auto Diffon [id number] Absolute0.0 E9/LNormal 0.0-0.2[facility] CenterComment on above:Performed By: #### [id number] #### [facility] [address] [place], [place] [address]Mjkbztmqw/100 WBC (Bld)0.7 %Normal0.0-2.0[facility] HospitalComment on above:Performed By: #### [id number] #### [facility] [address] [place] [address]Rdl Absolute0.2 E9/LNormal0.0-0.5FBrecksville [facility] Comment on above:Performed By: #### [id number] #### [facility] [address] [place] [address]Ysvpycnbwyw/100 WBC (Bld)4.1 %Normal0.0-8.0[facility] HospitalComment on above:Performed By: #### [id number] #### [facility] [address] [place] [address]Hgzpfqkkjmr distribution width (RBC) [Ratio]13.6 %Normal 10.9-14.2FBrecksville VA / Crille HospitalComment on above:Performed By: #### [id number] #### [facility] [address] [place] [address]Puhwsrekrc (Bld) [Volume fraction]47.8 %Ogxjbw86.7-49.0[facility] HospitalComment on above:Performed By: #### [id number] #### [facility] [address] [place] [address]Xumtznewgm (Bld) [Mass/Vol]16.6 g/uMCpicaw53.5-17.5FBrecksville VA / Crille HospitalComment on above:Performed By: #### [id number] #### [facility] [address] [place] [address]Dcthq Absolute1.8 E9/LNormal1.0-4.0[facility] Comment on above:Performed By: #### [id number] #### [facility] [address] [place], [place] [address]Tbwdnoarrps/100 WBC (Bld)40.6 %Yjivcs75.0-50.0[facility] HospitalComment on above:Performed By: #### [id number] #### [facility] [address] [place], [place] [address]DHG (RBC) [Entitic mass]33.3 qnZylfxj26.0-34.0[facility] HospitalComment on above:Performed By: #### [id number] #### [facility] [address] [place] [address]RZCP (RBC) [Mass/Vol]34.7 g/aYRfdkac09.4-36.0[facility] HospitalComment on above:Performed By: #### [id number] #### [facility] [address] [place] [address]MWO (RBC) [Entitic vol]96.2 oCDqcwsx61.0-100.0[facility] HospitalComment on above:Performed By: #### [id number] #### [facility] [address] [place] [address]Otna Absolute0.4 E9/LNormal0.2-1.0[facility] Comment on above:Performed By: #### [id number] #### [facility] [address] [place] [address]Ziyeclgis/100 WBC (Bld)9.1 %Normal4.0-14.0[facility] HospitalComment on above:Performed By: #### [id number] #### [facility] [address] [place] [address]Qabils Absolute2.0 E9/LNormal2.0-7.5FBrecksville [facility] Comment on above:Performed By: #### [id number] #### [facility] [address] [place] [address]Fdzlqw Auto45.5 %Qbquxy41.0-75.0[facility] Comment on above:Performed By: #### [id number] #### [facility] [address] [place] [address]Rqyrykxx057.0 E9/XMkyasi339.0-500.0[facility] Comment on above:Performed By: #### [id number] #### [facility] [address] [place], [place] [address]Yayfyqhc mean volume (Bld) [Entitic vol]8.8 fLNormal6.4-10.8 [facility] HospitalComment on above:Performed By: #### [id number] #### [facility] [address] [place], [place] [address]NDW5.0 E12/LNormal4.3-5.9[facility] HospitalComment on above:Performed By: #### [id number] #### [facility] [address] [place], [place] [address]AHC1.5 E9/LNormal4.0-11.0[facility] HospitalComment on above:Performed By: #### [id number] #### [facility] [address] [place], [place] [address]BEHcc 21-72-5130Kifjbqe [Mass/Vol]4.8 g/dLNormal3.3-5.0[facility] HospitalComment on above:Performed By: #### [id number] #### [facility] [address] [place] [address]Mdwuarl/Globulin [Mass ratio]1.7 {ratio}Normal1.1-2.2FBrecksville VA / Crille HospitalComment on above:Performed By: #### [id number] #### [facility] [address] [place], [place] [address]Edu Phos52 Int._Unit/IWlgpfw93-10CyxwizBucyrus Community Hospital Comment on above:Performed By: #### [id number] #### [facility] [address] [place], [place] [address]ALU22 Int._Unit/LHigh6-46[facility] HospitalComment on above:Performed By: #### [id number] #### [facility] [address] [place], [place] [address]Ljmcz gap [Moles/Vol]14 mmol/LNormal6-16[facility] HospitalComment on above:Performed By: #### [id number] #### [facility] [address] [place], [place] [address]ZEA25 Int._Unit/LNormal5-43[facility] HospitalComment on above:Performed By: #### [id number] #### [facility] [address] [place], [place] [address]Nsfd Total0.7 mg/dLNormal0.0-1.1FBrecksville VA [facility] Comment on above:Performed By: #### [id number] #### [facility] [address], [place] [address]CZZ/Creat Ratio20 No NftrgOtoxvu24-37RudaizBucyrus Community HospitalComment on above:Performed By: #### [id number] #### [facility] [address] [place], [place] [address]Epzlida [Mass/Vol]10.2 mg/dLNormal8.9-11.1FBrecksville VA / Crille HospitalComment on above:Performed By: #### [id number] #### [facility] [address] [place], [place] [address]Yixadbkx [Moles/Vol]100 mmol/OIta884-169FxvjrbBucyrus Community HospitalComment on above:Performed By: #### [id number] #### [facility] [address], [place] [address]LT4 [Moles/Vol]25 mmol/OEbzbqz96-86LlnefaBucyrus Community Hospital Comment on above:Performed By: #### [id number] #### [facility] [address] [place], [place] [address]Ngkfcejoko [Mass/Vol]1.2 mg/dLNormal0.5-1.3FBrecksville VA / Crille HospitalComment on above:Performed By: #### [id number] #### [facility] [address], [place] [address]Ngynkgku (S) [Mass/Vol]2.9 g/dLNormal1.4-4.0[facility] HospitalComment on above:Performed By: #### [id number] #### [facility] [address], [place] [address]Kkhikfa [Mass/Vol]279 mg/rBPnom82-587FfyfgyBucyrus Community HospitalComment on above:Performed By: #### [id number] #### [facility] [address], [place] [address]Jmjzqvqbc [Moles/Vol]4.7 mmol/LNormal3.5-5.3FBrecksville VA / Crille HospitalComment on above:Performed By: #### [id number] #### [facility] [address], [place] [address]Wiijryf [Mass/Vol]7.7 g/dLNormal6.0-7.8[facility] HospitalComment on above:Performed By: #### [id number] #### [facility] [address], [place] [address]Uubxxa [Moles/Vol]134 mmol/SIut830-643MpbvupBucyrus Community HospitalComment on above:Performed By: #### [id number] #### [facility] [address], [place] [address]Dtro nitrogen [Mass/Vol]24 mg/dLHigh5-21[facility] HospitalComment on above:Performed By: #### [id number] #### [facility] [address] [place], [place] [address]Yyrgbq Medicine Office/Clinic Noteon [phone] Medicine Office/Clinic NoteFasturdy memorial hospital Medicine Office/Clinic Note Chief Complaint The patient is concerned about diabetes management and medication costs. [facility] Staff Pt presents today for 3m [...] diabetes control. - [facility] and potential insurance coverage for alternatives. - Reviewed patient blood sugar log - Encourage low carb diet and daily exercise - Continue glipizide 10 mf, MetFormin 100 mg, and pioglitazone 45 mg- no refills today - F/U in 3-6 months pending laboratory results Ordered: CBC w/ Auto Diff Comprehensive Metabolic Panel HgbA1c Lab Specimen Collect [id number] Urine Microalbumin/Creatinine Ratio 2. HTN (hypertension) (I10: Essential (primary) hypertension) - Continue current antihypertensive medications: amlodipine and enalapril. Ordered: enalapril, 20 mg = 1 tab(s), Oral, Daily, # 90 tab(s), Refills(s) 1, Pharmacy: [facility], 185, cm, 04/07/25 8:47:00 EDT, Height/Length Dosing, 122.4, kg, 04/07/25 8:47:00 EDT, WeightDosing CBC w/ Auto Diff Comprehensive Metabolic Panel Lipid Panel 3. Hyperlipidemia (E78.5: Hyperlipidemia, unspecified) - Plan to check cholesterol levels during this visit. Ordered: Lab Specimen Collect 92182 Lipid Panel 4. Depression, unspecified (F32.A) - [...] smoker (Z87.891: Personal history of nicotine dependence) [facility] (more content not included)...NormalBucyrus Community HospitalComment on above:Result Comment: Electronically Signed By: PASQUALE STERN CNP\.shekhar\Date and Time Signed: 04/07/25 09:30 VESBmvX5hnn 60-05-5416ZkJ4j (Bld) [Mass fraction]7.9 %High<=5.9[facility] HospitalComment on above: Performed By: #### [id number] #### [facility] [address] [place], [place] [address]Dyvvd Panelon 95-84-4817Hghycwtfelc [Mass/Vol]196 mg/dLNormal 120-200[facility] HospitalComment on above:Performed By: #### [id number] #### [facility] [address], [place] [address]Uhwgfehhlna in HDL [Mass/Vol]36 mg/dLInvalid Interpretation CodeBucyrus Community HospitalComment on above:Result Comment: '>= 60 LOW RISK' '<= 40 HIGH RISK'Performed By: #### [id number] #### [facility] [address], [place] [address]Amsvswfakyn in LDL [Mass/Vol]104 mg/dLNormal<=129[facility] Community HospitalComment on above:Performed By: #### [id number] #### [facility] [address] [place], [place] [address]Oturcjidzlz in VLDL [Mass/Vol]74 mg/dLHigh7-40Bu[facility] HospitalComment on above:Performed By: #### [id number] #### [facility] [address], [place] [address]Gkcjkfnuotbj [Mass/Vol]370 mg/dLHigh<=149Bu[facility] Community HospitalComment on above:Performed By: #### [id number] #### [facility] [address], [place] [address]WBO Screen, Totalon 93-72-8575MLX Scrn Tot.0.3 ng/mLNormal 0.1-3.5FBrecksville VA / Crille HospitalComment on above:Result Comment: The concentration of PSA determined by different manufacturers can vary due to diffe rences in assay methods and reagent specificity. Values obtained from different assay methods cannot be used interchangeably. The methodology used for this result was chemiluminescence using [employer] Access Hybritech PSA reagent.Performed By: #### [id number] #### [facility] [address], [place] [address]G MA/Cr Ratioon 98-60-3585Tzktkwrj/Cr Hayiz440.3 mg/gm CrHigh .0-30.0[facility] Community HospitalComment on above:Result Comment: 30-300 mg/g Cr indicates an increased risk for diabetic nephropathy. >300 mg/g Cr is consistent with clinical nephropathy.Performed By: #### [id number] #### [facility] [address], [place] [address] Omngzbuihe47.7 mg/dLInvalid Interpretation CodeBucyrus Community HospitalComment on above:Performed By: #### [id number] #### [facility] [address] [place], [place] [address]Y Flktzzha20.4 mg/dLHigh0.0-1.9[facility] Comment on above:Result Comment: Result Verified by DilutionPerformed By: #### [id number] #### [facility] [address], [place] [address]cMCJsg 88-96-0060xELW31 mL/min/1.73 l6Sgvgpg>=59Bu[facility] Community HospitalComment on above:Performed By: #### [id number] #### [facility] [address] [place], [place] [address]Lrsgidivfk Visit Summaryon 11-09-8767Tzepakodlk Visit Summary Ambulatory Visit Summary SULTANA JOSHUA [...] AM EDT With: PASQUALE STERN CNP Where: [address] [address]- Medications What How Much When Why Instructions Changed enalapril (enalapril 20 mg Tab) 1 Tablets By Mouth Every day HTN (hypertension) Pickup at [facility]. Changed glipiZIDE (glipiZIDE 10 mg ER Tab) 1 Tablets By Mouth Every day Diabetes Pickup at [facility]. Unchanged amlodipine (amLODIPine 10 mg Tab) See instructions HTN (hypertension) TAKE ONE TABLET BY MOUTH ONCE DAILY Pickup at [facility]. Unchanged metformin (metformin 1000 mg Tab) See instructions Diabetes TAKE ONE TABLET BY MOUTH TWICE A DAY [facility]changed pioglitazone (pioglitazone 45 mg Tab) 1 Tablets By Mouth Every day Diabetes Pickup at [facility] Unchanged simvastatin (simvastatin 20 mg Tab) See instructions Hyperlipidemia TAKE ONE TABLET BY MOUTH EVERY DAY [facility] Unchanged citalopram (citalopram 20 mg Tab) 0.5 Tablets By Mouth Every day Contact prescribing physician if questions or concerns Unchanged omeprazole (omeprazole 20 mg Cap-DR) See instructions TAKE ONE CAPSULE BY MOUTH EVERY DAYContact prescribing physician if questions or concerns Pharmacy Information [facility] [address] [place], [place] [id number] [phone] Allergies No Known Medication Allergies Problems Ongoing [...] you for choosing us for your care. Protestant HospitalCHEMISTRYOrdered By: SYSTEM SYSTEM on 92-80-9587Spxdxjg [Mass/Vol]4.6 g/dLNormal3.3 - 5.0 gm/dLRemisol Chem Albumin/Globulin [Mass ratio]1.6 {ratio}Normal1.1 - 2.2Remisol ChemALP [Catalytic activity/Vol]50 [iU]/rIiqiyv58 - 98 Int._Unit/LRemisol ChemALT No additional P-5'-P [Catalytic activity/Vol]68 [iU]/dHigh6 - 46 Int._Unit/LRemisol ChemAnion gap [Moles/Vol]12 mmol/LNormal6 - 16 mEq/LRemisol ChemAST [Catalytic activity/Vol]42 [iU]/dNormal5 - 43 Int._Unit/LRemisol ChemBilirubin [Mass/Vol] 1.1 mg/dLNormal0.0 - 1.1 mg/dLRemisol ChemCalcium [Mass/Vol]10.0 mg/dLNormal8.9 - 11.1 mg/dLRemisol ChemChloride [Moles/Vol]102 mmol/URhmxuw835 - 111 mmol/L Remisol ChemCholesterol [Mass/Vol]188 mg/rQNiywew995 - 200 mg/dLRemisol Chem Cholesterol in HDL [Mass/Vol]39 mg/dLInvalid Interpretation CodeRemisol Chem Comment on above:Result Comment: '>= 60 LOW RISK' '<= 40 HIGH RISK'Cholesterol in LDL [Mass/Vol]124 mg/dLNormal<=129mg/dLRemisol ChemCholesterol in VLDL [Mass/Vol]45 mg/dLHigh7 - 40 mg/dLRemisol ChemCO2 [Moles/Vol]27 mmol/CUpuleq19 - 31 mmol/LRemisol ChemCreatinine [Mass/Vol]1.0 mg/dLNormal0.5 - 1.3 mg/dLRemisol HdkdyUUL44 mL/min/1.73 e1Murahm>=59mL/min/1.73 d2Kezudqu ChemGlobulin (S) [Mass/Vol]2.8 g/dLNormal1.4 - 4.0 gm/dLRemisol Chem Glucose [Mass/Vol]273 mg/yRCbzk68 - 199 mg/dLRemisol ChemPotassium [Moles/Vol] 5.1 mmol/LNormal3.5 - 5.3 mmol/LRemisol ChemProtein [Mass/Vol]7.4 g/dLNormal6.0 - 7.8 gm/dLRemisol ChemSodium [Moles/Vol]136 mmol/IPvlnuh184 - 145 mmol/LRemisol ChemTriglyceride [Mass/Vol]226 mg/dLHigh<=149mg/dLRemisol ChemUrea nitrogen [Mass/Vol]14 mg/dLNormal5 - 21 mg/dLRemisol ChemUrea nitrogen/Creatinine [Mass ratio]14 mg/ydEgyjbj44 - 20Remisol ChemCHEMISTRYOrdered By: Park Wills on 55-80-4769ZjO1p (Bld) [Mass fraction]10.2 %High<=5.9%[facility] ChemAutoSSCMPon 85-03-6973Jjywyqv [Mass/Vol]4.6 g/dLNormal3.3-5.0[facility] Comment on above:Performed By: #### [id number] #### [facility] [address] [place] [address]Hsixefb/Globulin (S) [Mass conc ratio]1.2Xarool3.1-2.2FBrecksville VA / Crille HospitalComment on above:Performed By: #### [id number] #### [facility] [address] [place], [place] [address]TMM [Catalytic activity/Vol]50 Int._Unit/MOaucjg04-73DmpshpBucyrus Community HospitalComment on above:Performed By: #### [id number] #### [facility] [address] [place] [address]GNM No additional P-5'-P [Catalytic activity/Vol]68 Int._Unit/L High6-46Bu[facility] Community HospitalComment on above:Performed By: #### [id number] #### [facility] [address] [place], [place] [address]Abgzh gap [Moles/Vol]12 mmol/LNormal6-16[facility] Community HospitalComment on above:Performed By: #### [id number] #### [facility] [address] [place] [address]JPG [Catalytic activity/Vol]42 Int._Unit/LNormal5-43[facility] Community HospitalComment on above:Performed By: #### [id number] #### [facility] [address] [place], [place] [address]Irxxntzpo [Mass/Vol]1.1 mg/dLNormal0.0-1.1FBrecksville VA / Crille HospitalComment on above:Performed By: #### [id number] #### [facility] [address] [place], [place] [address]Dzqwnwf [Mass/Vol]10.0 mg/dLNormal8.9-11.1FBrecksville VA / Crille HospitalComment on above:Performed By: #### [id number] #### [facility] [address] [place], [place] [address]Depheumh [Moles/Vol]102 mmol/BNxgmeq348-500HynhluBucyrus Community HospitalComment on above:Performed By: #### [id number] #### [facility] [address], [place] [address]EF7 [Moles/Vol]27 mmol/AUsrrdy59-66CkuebyBucyrus Community Hospital Comment on above:Performed By: #### [id number] #### [facility] [address] [place], [place] [address]Pgtuvdvptl [Mass/Vol]1.0 mg/dLNormal0.5-1.3FBrecksville VA / Crille HospitalComment on above:Performed By: #### [id number] #### [facility] [address] [place], [place] [address]Aujmtyzp (S) [Mass/Vol]2.8 g/dLNormal1.4-4.0[facility] HospitalComment on above:Performed By: #### [id number] #### [facility] [address] [place], [place] [address]Dtvoetr [Mass/Vol]273 mg/gDQcwp32-011TbgxplBucyrus Community HospitalComment on above:Performed By: #### [id number] #### [facility] [address], [place] [address]Qnbohnzrp [Moles/Vol]5.1 mmol/LNormal3.5-5.3FBrecksville VA / Crille HospitalComment on above:Performed By: #### [id number] #### [facility] [address], [place] [address]Lyvekeg [Mass/Vol]7.4 g/dLNormal6.0-7.8[facility] HospitalComment on above:Performed By: #### [id number] #### [facility] [address] [place], [place] [address]Xmbawr [Moles/Vol]136 mmol/IGhjyts865-090FqnqtkBucyrus Community HospitalComment on above:Performed By: #### [id number] #### [facility] [address] [place], [place] [address]Mglw nitrogen [Mass/Vol]14 mg/dLNormal5-21Bu[facility] Community HospitalComment on above:Performed By: #### [id number] #### [facility] [address] [place], [place] [address]Bkqc nitrogen/Creatinine [Mass ratio]14 No SbobaGrlbbq80-17 [facility] HospitalComment on above:Performed By: #### [id number] #### [facility] [address] [place], [place] [address]Vfonol Medicine Office/Clinic Noteon 47-32-4136Ucrnxy Medicine Office/Clinic NoteFasturdy memorial hospital Medicine Office/Clinic Note Chief Complaint A1C follow up [facility] Staff Irma is a 43 year [...] Daily, # 90 tab(s), Refills(s) 1, Pharmacy: [facility] 185, cm, 10/14/24 7:46:00 EST, Height/Length Dosing, 121.3, kg, 10/14/24 7:46:00 EST, Weight Dosing glipiZIDE, 10 mg = 1 tab(s), Oral, Daily, # 90 tab(s), Refills(s) 0, Pharmacy: [facility] 185, cm, 08/15/24 8:05:00 EST, Height/Length Dosing, 119.1, kg, 08/15/24 8:05:00 EST, Weight Dosing metformin, See Instructions, TAKE ONE TABLET BY MOUTH TWICE A DAY, # 180 tab(s), Refills(s) 1, Pharmacy: [facility] 185, cm, 10/14/24 7:46:00 EST, Height/Length Dosing, 121.3, kg, 10/14/24 7:46:00 EST, Weight Dosing pioglitazone, 45 mg = 1 tab(s), Oral, Daily, # 90 tab(s), Refills(s) 1, Pharmacy: [facility] 185, cm, 10/14/24 7:46:00 EST, Height/Length Dosing, 121.3, kg, 10/14/24 7:46:00 EST, Weight Dosing Comprehensive Metabolic Panel HgbA1c Lab Specimen Collect [id number] Lab Specimen Collect [id number] Lipid Panel 2. HTN (hypertension) (I10: Essential (primary) hypertension) Stable Controlled Encourage low sodium diet and exercise Amlodipine 10 mg, enalapril 20 mg refilled at today's visit Awaiting laboratory results f/u 3 months Ordered: amlodipine, See Instructions, TAKE ONE TABLET BY MOUTH ONCE DAILY, # 90 tab(s), Refills(s) 1, Pharmacy: [facility] 185, cm, 10/14/24 7:46:00 EST, Height/Length Dosing, 121.3, kg, 10/14/24 7:46:00 EST, Weight Dosing enalapril, 20 mg = 1 tab(s), Oral, Daily, # 90 tab(s), Refills(s) 1, Pharmacy: [facility] 185, cm, 10/14/24 7:46:00 EST, Height/Length Dosing, 121.3, kg, 10/14/24 7:46:00 EST, Weight Dosing enalapril, 10 mg = 1 tab(s), Oral, Daily, # 30 tab(s), Refills(s) 0, Pharmacy: [facility], 185, cm, 07/10/24 7:24:00 EDT, Height/Length Dosing, 119.9, kg, 07/10/24 7:24:00 EDT, WeightDosing glipiZIDE, 10 mg = 1 tab(s), Oral, Daily, # 30 tab(s), Refills(s) 0, Pharmacy: [facility] 185, cm, 08/15/24 8:05:00 EST, Height/Length Dosing, 11 (more content not included)...NormalBucyrus Community HospitalComment on above:Result Comment: Electronically Signed By: PASQUALE STERN CNP\Date and Time Signed: 10/14/24 08:34 XXHRszZ0yus 31-63-2196YvX5d (Bld) [Mass fraction]10.2 %High<=5.9[facility] Community HospitalComment on above:Performed By: #### [id number] #### [facility] [address] [facility] [address]Zhbog Panelon 87-21-0915Kjvwgyssgrb [Mass/Vol]188 mg/dLNormal 120-200Bu[facility]rus Community HospitalComment on above:Performed By: #### [id number] #### [facility] [address], [place] [address]Gucsyzfetul in HDL [Mass/Vol]39 mg/dLInvalid Interpretation CodeBucyrus Community HospitalComment on above:Result Comment: '>= 60 LOW RISK' '<= 40 HIGH RISK'Performed By: #### [id number] #### [facility] [address], [place] [address]Etbxgxrktsn in LDL [Mass/Vol]124 mg/dLNormal<=129[facility] Community HospitalComment on above:Performed By: #### [id number] #### [facility] [address], [place] [address]Mztoyzdogyz in VLDL [Mass/Vol]45 mg/dLHigh7-40[facility] Community HospitalComment on above:Performed By: #### [id number] #### [facility] [address] [place], [place] [address]Gyborxgmpziw [Mass/Vol]226 mg/dLHigh<=149[facility] Community HospitalComment on above:Performed By: #### [id number] #### [facility] [address], [place] [address]Izxeoit Educationon 12-64-9480Ryvgxrk EducationPatient EducationNormalBucyrus Community HospitaleGFRon 71-47-2083kSUF02 mL/min/1.73 m2 Normal>=59Bu[facility] Community HospitalComment on above:Performed By: #### [id number] #### [facility] [address], [place] [address]Kosuzq Medicine Office/Clinic Noteon 24-82-1004Qiaztz Medicine Office/Clinic NoteFasturdy memorial hospital Medicine Office/Clinic Note Chief Complaint Follow [...] Daily, # 30 tab(s), Refills(s) 0, Pharmacy: [facility] 185, cm, 08/15/24 8:05:00 EST, Height/Length Dosing, 119.1, kg, 08/15/24 8:05:00 EST, Weight Dosing 2. Diabetes (E11.9: Type 2 diabetes mellitus without complications) Uncontrolled Ordered: glipiZIDE, 10 mg = 1 tab(s), Oral, Daily, # 30 tab(s), Refills(s) 0, Pharmacy: [facility], 185, cm, 08/15/24 8:05:00 EST, Height/Length Dosing, 119.1, kg, 08/15/24 8:05:00 EST, WeightDosing glipiZIDE, 10 mg = 1 tab(s), Oral, Daily, # 90 tab(s), Refills(s) 0, Pharmacy: [facility], 185, cm, 08/15/24 8:05:00 EST, Height/Length Dosing, [...] Daily, # 30 tab(s), Refills(s) 0, Pharmacy: [facility] 185, cm, 08/15/24 8:05:00 EST, Height/Length Dosing, [...] Daily, # 30 tab(s), Refills(s) 0, Pharmacy: [facility], 185, cm, 08/15/24 8:05:00 EST, Height/Length Dosing, [...] Daily, # 30 tab(s), Refills(s) 0, Pharmacy: [facility], 185, cm, 08/15/24 8:05:00 EST, Height/Length Dosing, 119.1, kg, 08/15/24 8:05:00 EST, Weight Dosing Follow-up No qualifying data available Patient Education Managing Your Hypertension Hypertension, Adult, Ygrb-ro-Jnbl Problem List/Past Medical History Ongoing Abscess of left external cheek BMI 34.0-34.9,adult BMI 35.0-35.9,adult Depression Diabetes HTN (hypertension) Hyperlipidemia Obesity (BMI 30-39.9) Vapes nicotine containing substance Historical No qualifying data Procedure/Surgical History Anterior cruciate ligament of knee joint, Photorefractive keratectomy. Medications amLODIPine 10 mg Tab, 10 mg= 1 tab(s (more content not included)...Protestant HospitalComment on above:Result Comment: Electronically Signed By: PASQUALE STERN CNP\.br\Date and Time Signed: 08/15/24 08:53 ESTAmbulatory Visit Summaryon 48-54-2373Jymueuozca Visit SummaryAmbulatory Visit Summary SULTANA JOSHUA :1980 [...] AM EST With: PASQUALE STERN CNP Where: [facility] [address] [place] [phone]- You Need to Schedule the Following Appointments Follow Up with PASQUALE STERN CNP [facility] When: Within 4 weeks Comments: HTN Where: [address] [place] [phone] Business (1) You Need to Complete the Following HgbA1c, Blood, Routine collect, 07/10/24, Order for future visit, Lab Collect, Diabetes, Print Label By Order Location Medications What How Much When Why Instructions Changed enalapril (enalapril 10 mg Tab) 1 Tablets By Mouth Every day HTN (hypertension) Pickup at [facility] Changed enalapril (enalapril 20 mg Tab) [...] Tablets By Mouth Every day Pharmacy Information [facility]: [address] [place], [place] [id number] [phone] Allergies No Known Medication Allergies Problems Ongoing [...] you for choosing us for your care. Protestant HospitalCHEMISTRYOrdered By: Sakina Langley on 07-92-1491YrR4v (Bld) [Mass fraction]10.4 %High<=5.9%[facility] ChemAutoSS Family Medicine Office/Clinic Noteon 22-73-6654Dhmgia Medicine Office/Clinic NoteFasturdy memorial hospital Medicine Office/Clinic Note HPI Staff Sultana [...] and daily exercise Patient declined referral to visual training aide for assistance with his diet in regards to his diabetes Continue glipizide , MetFormin, & pioglitazone 45 Awaiting HgbA1C results Patient given name and number of eye doctor f/u TBD Ordered: HgbA1c Lab Specimen Collect [id number] 2. HTN (hypertension) (I10: Essential (primary) hypertension) Continue the enalapril 20 mg one tablet daily and the amlodipine 10 mg daily Add enalapril, 10 mg one tablet daily - may take with the 20 mg tablet Encourage low sodium diet & exercise f/u in 4 weeks Ordered: enalapril, 10 mg = 1 tab(s), Oral, Daily, # 30 tab(s), Refills(s) 0, Pharmacy: [facility], 185, cm, 07/10/24 7:24:00 EDT, Height/Length Dosing, 119.9, kg, 07/10/24 7:24:00 EDT, WeightDosing Lab Specimen Collect [id number] 3. Former smoker (Z87.891: Personal history of nicotine dependence) Encouraged to continue as a non-smoker Ordered: Lab Specimen Collect [id number] 4. BMI 35.0-35.9,adult (Z68.35: Body mass index [...] at subsequent visits. Ordered: Lab Specimen Collect [id number] 5. 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 Ordered: Lab Specimen Collect [id number] Follow-up With When Contact Information LEENA SALAMANCA, PASQUALE Avila, TORRES Within [address] [place] [phone] Business (1) Additional Instructions: HTN Patient [...] Tab, 5 mg= 1 (more content not included)...NormalBucyrus Community HospitalComment on above:Result Comment: Electronically Signed By: PASQUALE STERN CNP\.br\Date and Time Signed: 07/10/24 10:58 NLCSliM0yqu 07-10-2024 HbA1c (Bld) [Mass fraction]10.4 %High<=5.9Bu[facility]rus Community HospitalComment on above:Performed By: #### [id number] #### [facility] [address], [place] [address]Iqsgamowdo Visit Summaryon 50-58-5375Fjxodszgzs Visit Summary Ambulatory Visit Summary SULTANA JOSHUA [...] AM EDT With: PASQUALE STERN CNP Where: [address] [address] Medications What How Much When Why Instructions [...] you for choosing us for your care. [facility] Medicine Office/Clinic Noteon 90-63-8490Ileffb Medicine Office/Clinic NoteHebrew Rehabilitation Center Medicine Office/Clinic Note Chief Complaint f/u to [...] Daily, # 90 tab(s), Refills(s) 0, Pharmacy: [facility] 185, cm, 05/15/24 7:36:00 EDT, Height/Length Dosing, 121.8, kg, 05/15/24 7:36:00 EDT, Weight Dosing glipiZIDE, 5 mg = 1 tab(s), Oral, Daily, # 90 tab(s), Refills(s) 0, Pharmacy: [facility] 185, cm, 04/09/24 7:36:00 EDT, Height/Length Dosing, [...] Daily, # 90 tab(s), Refills(s) 0, Pharmacy: [facility] 185, cm, 05/15/24 7:36:00 EDT, Height/Length Dosing, [...] Daily, # 90 tab(s), Refills(s) 0, Pharmacy: [facility] 185, cm, 05/15/24 7:36:00 EDT, Height/Length Dosing, [...] Daily, # 90 tab(s), Refills(s) 0, Pharmacy: [facility] 185, cm, 05/15/24 7:36:00 EDT, Height/Length Dosing, 121.8, kg, 05/15/24 7:36:00 EDT, Weight Dosing 5. Vapes nicotine containing substance (Z72.0: Tobacco use) Ordered: enalapril, 20 mg = 1 tab(s), Oral, (more content not included)...Protestant HospitalComment on above:Result Comment: Electronically Signed By: PASQUALE STERN CNP\.br\Date and Time Signed: 05/15/24 08:43 EDTProvider Letteron [id number] LetterProvider Letter May 15, 2024 SULTANA JOSHUA [address] [place] [phone] : 1980 To Whom It May Concern, Please excuse above patient from work, Sultana did have an appointment this morning 05-15-24 Date of Illness: From: _ To: _ May Return to Work On:05-15-24 Restrictions: _ Comments: _ Sincerely, Family Medicine [address] [address] XfegzlKkktuwMercy HospitalAmbulatory Visit Summaryon 36-54-4365Asrznjowcl Visit SummaryAmbulatory Visit Summary SULTANA JOSHUA :1980 [...] Follow-Up Appointments Sunday 7:20 AM EDT With: PASQULAE STERN CNP Where: [place] [phone]- Medications What How Much When Why Instructions [...] you for choosing us for your care. [facility] Medicine Office/Clinic Noteon 96-50-2682Xfpccl Medicine Office/Clinic NoteHebrew Rehabilitation Center Medicine Office/Clinic Note HPI Staff Sultana is [...] 23-valent vaccine 11/07/2021 Recorded 2023-10-26: VIS DATE: 07/16/2019Protestant HospitalComment on above:Result Comment: Electronically Signed By: PASQUALE STERN CNP\.br\Date and Time Signed: 04/09/24 13:10 EDTProvider Letteron [id number] LetterProvider Letter April 09, 2024 SULTANA JOSHUA [address] [place] [phone] : 1980 To Whom It May Concern, Please excuse above patient from work due to medical reasons Date of Illness: From: _04-08-24 To: _patient had appt. 04-09-24 @ 7:20 a.m. May Return to Work On:04-09-24 Restrictions: _NONE Comments: _ Sincerely, Family Medicine [address] [address] LwirbrGuiigwProtestant HospitalAmbulatory Visit Summaryon 47-64-2527Ahmbtdcznz Visit SummaryAmbulatory Visit Summary SULTANA JOSHUA :1980 [...] AM EDT With: PASQUALE STERN CNP Where: [facility] Medicine Office/Clinic Noteon 36-81-3385Swwcqb Medicine Office/Clinic NoteHebrew Rehabilitation Center Medicine Office/Clinic Note HPI Staff Sultana is [...] out and will need some to drug [place] local 30 days to cover until mail [...] Daily, # 30 tab(s), Refills(s) 0, Pharmacy: [facility], 185, cm, 03/18/24 7:22:00 EDT, Height/Length Dosing, 119.9, kg, 03/18/24 7:22:00 EDT, WeightDosing omeprazole, 20 mg = 1 cap(s), Oral, Daily, # 30 cap(s), Refills(s) 0, Pharmacy: [facility], 185, cm, 03/18/24 7:22:00 EDT, Height/Length [...] breakfast, # 90 cap(s), Refills(s) 1, Pharmacy: [facility] 185, cm, 03/18/24 7:22:00 EDT, Height/Length Dosing, 119.9, kg, 03/18/24 7:22:00 EDT, Weight Dosing Follow-up With When Contact Information PASQUALE STERN CNP, FAM Within [address] [place] [phone] [facility] (1) Additional Instructions: HTN Patient Education Heart Attack, Ezui-xk-Ehpg Problem List/Past Medical History Ongoing Abscess of [...] vaccine 11/07/2021 Record (more content not included)... Protestant HospitalComment on above:Result Comment: Electronically Signed By: PASQUALE STERN CNP\.br\Date and Time Signed: 03/18/24 07:59 EDT Provider Letteron 45-69-0612Zqfelnvy LetterProvider Letter March 18, 2024 SULTANA JOSHUA [address] [place] [phone] : 1980 To Whom It May Concern, Please excuse above patient from work, Sultana did have an appointment @ 7:20 a.m. this morning with Pasquale Stern NP. Date of Illness: From: _ To: _ May Return to Work On:03-18-24 Restrictions: _ Comments: _ Sincerely, Family Medicine [address] [address] MoadxiHbzfqqMercy HospitalCHEMISTRYOrdered By: SYSTEM SYSTEM on 91-00-3985Cntzojt [Mass/Vol]4.5 g/dLNormal3.3 - 5.0 gm/dLRemisol Chem Albumin DL <= 20 mg/L (U) [Mass/Vol]91.8 mg/dLHigh0.0 - 1.9 mg/dLRemisol Chem Albumin/Globulin [Mass ratio]1.6 {ratio}Normal1.1 - 2.2Remisol ChemALP [Catalytic activity/Vol]70 [iU]/qRiitjq45 - 98 Int._Unit/LRemisol ChemALT No additional P-5'-P [Catalytic activity/Vol]97 [iU]/dHigh6 - 46 Int._Unit/LRemisol ChemAnion gap [Moles/Vol]13 mmol/LNormal6 - 16 mEq/LRemisol ChemAST [Catalytic activity/Vol]74 [iU]/dHigh5 - 43 Int._Unit/LRemisol ChemBilirubin [Mass/Vol]0.8 mg/dLNormal0.0 - 1.1 mg/dLRemisol ChemCalcium [Mass/Vol]9.3 mg/dLNormal8.9 - 11.1 mg/dLRemisol ChemChloride [Moles/Vol]100 mmol/WGcq285 - 111 mmol/LRemisol ChemCholesterol [Mass/Vol]168 mg/nXRhahni292 - 200 mg/dLRemisol ChemCholesterol in HDL [Mass/Vol]26 mg/dLInvalid Interpretation CodeRemisol ChemComment on above:Result Comment: '>= 60 LOW RISK' '<= 40 HIGH RISK'Cholesterol in LDL [Mass/Vol]89 mg/dLNormal<=129mg/dLRemisol ChemCholesterol in VLDL [Mass/Vol]Unable to Calculate mg/dLInvalid Interpretation Code7 - 40 mg/dLRemisol ChemComment on above:Result Comment: 'UNABLE TO REPORT. TRIG > 400 mg/dl'CO2 [Moles/Vol]25 mmol/ZKbrkto75 - 31 mmol/L Remisol ChemCreatinine [Mass/Vol]1.0 mg/dLNormal0.5 - 1.3 mg/dLRemisol ChemeGFR 95 mL/min/1.73 u1Venivd>=59mL/min/1.73 d7Onlirjf ChemGlobulin (S) [Mass/Vol]2.9 g/dLNormal1.4 - 4.0 gm/dLRemisol ChemGlucose [Mass/Vol]316 mg/zGColi90 - 199 mg/dLRemisol ChemPotassium [Moles/Vol]4.3 mmol/LNormal3.5 - 5.3 mmol/LRemisol ChemProtein [Mass/Vol]7.4 g/dLNormal6.0 - 7.8 gm/dLRemisol Chem Protein/Creatinine (U) [Ratio]152.40 mg/gm CrNormal0.00 - 200.00 mg/gm CrRemisol ChemSodium [Moles/Vol]134 mmol/MDtb884 - 145 mmol/LRemisol ChemTriglyceride [Mass/Vol]466 mg/dLHigh<=149mg/dLRemisol ChemU Bblamuiqhl34.2 mg/dLInvalid Interpretation CodeRemisol ChemUr Total Jortfnx228.2 mg/dLInvalid Interpretation CodeRemisol ChemUrea nitrogen [Mass/Vol]16 mg/dLNormal5 - 21 mg/dLRemisol Chem Urea nitrogen/Creatinine [Mass ratio]16 mg/wgGwpjvv63 - 20Remisol ChemCHEMISTRY Ordered By: Chadwick Barrera on 37-82-6342UoZ7a (Bld) [Mass fraction]11.5 %High <=5.9%[facility] ChemAutoSSCMPon 05-66-9042Mzlubtm [Mass/Vol]4.5 g/dLNormal3.3-5.0 [facility] Community HospitalComment on above:Performed By: #### [id number] #### [facility] [address], [place] [address]Jphtcsi/Globulin (S) [Mass conc ratio]1.0Mhftqf4.1-2.2Fisher Meritus Medical CenterComment on above:Performed By: #### [id number] #### [facility] [address], [place] [address]OUF [Catalytic activity/Vol]70 Int._Unit/SScelof37-17VxgihkBucyrus Community HospitalComment on above:Performed By: #### [id number] #### [facility] [address], [place] [address]VBG No additional P-5'-P [Catalytic activity/Vol]97 Int._Unit/L High6-46Bucyrus Community HospitalComment on above:Performed By: #### [id number] #### [facility] [address], [place] [address]PWZ [Catalytic activity/Vol]74 Int._Unit/LHigh5-43Bu[facility] Community HospitalComment on above:Performed By: #### [id number] #### [facility] [address], [place] [address]Nrzqxzldg [Mass/Vol]0.8 mg/dLNormal0.0-1.1FBrecksville VA / Crille HospitalComment on above:Performed By: #### [id number] #### [facility] [address], [place] [address]Nquafvtm (S) [Mass/Vol]2.9 g/dLNormal1.4-4.0[facility] Community HospitalComment on above:Performed By: #### [id number] #### [facility] [address], [place] [address]Uyaccwk [Mass/Vol]7.4 g/dLNormal6.0-7.8[facility] Community HospitalComment on above:Performed By: #### [id number] #### [facility] [address], [place] [address]Ykwmf gap [Moles/Vol]13 mmol/LNormal6-16[facility] Community HospitalComment on above:Performed By: #### [id number] #### [facility] [address], [place] [address]Tkpwukt [Mass/Vol]9.3 mg/dLNormal8.9-11.1FBrecksville VA / Crille HospitalComment on above:Performed By: #### [id number] #### [facility] [address], [place] [address]Bevlumee [Moles/Vol]100 mmol/KGss262-053PohhseBucyrus Community HospitalComment on above:Performed By: #### [id number] #### [facility] [address], [place] [address]SQ0 [Moles/Vol]25 mmol/IGuaxqe78-84HisstsBucyrus Community Hospital Comment on above:Performed By: #### [id number] #### [facility] [address], [place] [address]Xmqfygvkfr [Mass/Vol]1.0 mg/dLNormal0.5-1.3FBrecksville VA / Crille HospitalComment on above:Performed By: #### [id number] #### [facility] [address], [place] [address]Gfzjjft [Mass/Vol]316 mg/gUPhjs55-668QlylkdBucyrus Community HospitalComment on above:Performed By: #### [id number] #### [facility] [address], [place] [address]Djvyodfcj [Moles/Vol]4.3 mmol/LNormal3.5-5.3FBrecksville VA / Crille HospitalComment on above:Performed By: #### [id number] #### [facility] [address], [place] [address]Yeetep [Moles/Vol]134 mmol/OPeb984-785KbfnihBucyrus Community HospitalComment on above:Performed By: #### [id number] #### [facility] [address], [place] [address]Fphy nitrogen [Mass/Vol]16 mg/dLNormal5-21[facility] HospitalComment on above:Performed By: #### [id number] #### [facility] [address], [place] [address]Njji nitrogen/Creatinine [Mass ratio]16 No AmfnqMkqszj62-41 [facility] HospitalComment on above:Performed By: #### [id number] #### [facility] [address], [place] [address]WpfD2liy 47-26-2934TuI7e (Bld) [Mass fraction]11.5 %High<=5.9 [facility] HospitalComment on above:Performed By: #### [id number] #### [facility] [address], [place] [address]Xgnvu Panelon 37-88-4963Cnyljqrpewy in VLDL [Mass/Vol]UTC Abnormal7-40[facility] Community HospitalComment on above:Result Comment: 'UNABLE TO REPORT. TRIG > 400 mg/dl' Result verified by Discern Rule. Performed result UT (Unable to Calculate) was sent as an Alpha code due the inability to calculate a valid numeric value. Performed By: #### [id number] #### [facility] [address], [place] [address]Bldmzdowvpy [Mass/Vol]168 mg/wLFycuka575-154PjthomBucyrus Community HospitalComment on above:Performed By: #### [id number] #### [facility] [address], [place] [address]Khvgejbgagj in HDL [Mass/Vol]26 mg/dLInvalid Interpretation CodeBucyrus Community HospitalComment on above:Result Comment: '>= 60 LOW RISK' '<= 40 HIGH RISK'Performed By: #### [id number] #### [facility] [address], [place] [address]Ttjxgxutclo in LDL [Mass/Vol]89 mg/dLNormal<=129[facility] HospitalComment on above:Performed By: #### [id number] #### [facility] [address], [place] [address]Qvwzauvjsbfk [Mass/Vol]466 mg/dLHigh<=149[facility] Community HospitalComment on above:Performed By: #### [id number] #### [facility] [address], [place] [address]W Microalbon 66-27-3561Uhxpoxo DL <= 20 mg/L (U) [Mass/Vol]91.8 mg/dLHigh0.0-1.9[facility] Community HospitalComment on above:Performed By: #### [id number] #### [facility] [address], [place] [address]A Protein/Creat Ratioon 28-36-3913Aorwiop/Creatinine (U) [Ratio]152.40 mg/gm CrNormal.00-200.00Bu[facility] Community HospitalComment on above:Performed By: #### [id number] #### [facility] [address], [place] [address]E Fipljmewjc38.2 mg/dLInvalid Interpretation [facility] CenterComment on above:Performed By: #### [id number] #### [facility] [address], [place] [address]Sa Total Cmsouiq470.2 mg/dLInvalid Interpretation [facility] CenterComment on above:Performed By: #### [id number] #### [facility] [address], [place] [address]eHJVdc 15-52-3819uESS61 mL/min/1.73 w7Mxyxbq>=59Bu[facility]rus Community HospitalComment on above:Order Comment: Order added by Discern Expert. Performed By: #### [id number] #### [facility] [address], [place] [address]Aboldblqqr Visit Summaryon 20-22-2107Pkvspkncwr Visit Summary SULTANA JOSHUA :1980 Visit Date:02/19/2024 [...] Appointments 2023 7:00 AM EDT With: [facility] BellevueInvalid Interpretation [address] [place] [address]- \.br\ You Need to Schedule the Following Appointments\.br\ Follow Up with PASQUALE STERN CNP, FAM When: Within 4 weeks\.br\ Comments:\.br\ HTN\.br\ Where:\.br\ [address] [facility]\.br\ [place] [address]\.br\ Business ( 1)\.br\ \.br\ You Need to Complete the Following\.br\ Comprehensive Metabolic Panel, Blood, Routinecollect, 02/19/24, Order for future visit, Lab Collect, DiabetesTri[facility] Office/Clinic Noteon 67-06-2112Lrviar Medicine Office/Clinic NoteChief Complaint Patient in office [...] Daily, # 30 tab(s), Refills(s) 0, Pharmacy: [facility], 185, cm, 02/19/24 7:35:00 EDT, Height/Length Dosing, 119.7, kg, 02/19/24 7:35:00 EDT, Weight Dosing Comprehensive Metabolic Panel Lipid Panel 3. Yeast infection (B37.9: Candidiasis, unspecified) Ordered: fluconazole, 100 mg = 1 tab(s), Oral, Daily, X 7 day(s), # 7 tab(s), Refills(s) 0, Pharmacy: [facility], 185, cm, 02/19/24 7:35:00 EDT, Height/Length Dosing, 119.7, kg, 02/19/24 7:35:00 EDT, Weight Dosing Orders: pioglitazone, 45 mg = 1 tab(s), Oral, Daily, # 90 tab(s), Refills(s) 1, Pharmacy: [facility], 185, cm, 02/19/24 7:35:00 EDT, Height/Length Dosing, 119.7, kg, 02/19/24 7:35:00 EDT, Weight Dosing sitagliptin, 100 mg = 1 tab(s), Oral, Daily, # 90 tab(s), Refills(s) 1, Pharmacy: [facility], 185, cm, 02/19/24 7:35:00 EDT, Height/Length Dosing, 119.7, kg, 02/19/24 7:35:00 EDT, Weight Dosing Total time spent preparing the chart, conducting of the encounter with the patient and family and time spent documenting, reviewing, and ordering tests was 30 minutes. Follow-up With When Contact Information PASQUALE STERN CNP, FAM Within [address] [place] [phone] [facility] (1) Additional Instructions: HTN Patient Education Genital Yeast Infection, Male Hypertension, Adult, Njxb-ts-Uhkt Problem List/Past Medical History Ongoing Abscess of [...] Current, Liquor, 1-2 times per month, 10/26/2023 [facility] (more content not included)...Protestant HospitalComment on above:Result Comment: Electronically Signed By: PASQUALE [...] Keep all follow-up visits. Medicines ? Take oeft-clg-orfychq and prescription medicines only as told by [...] blood. ? For m (more content not included)...Protestant HospitalProvider Letteron [phone] Letter February 19, 2024 SULTANA JOSHUA [address] [address] : 1980 To Whom It May Concern, Please excuse above patient from work Sultana does have appt. @ 7:00 a.m. on February Date of Illness: From: _ To: _ May Return to Work On:02-21-24 Restrictions: _NONE Comments: _ Sincerely, [place] [address] FchyxuLtdilfAultman HospitalProvider Letter February 19, 2024 SULTANA JOSHUA [address] [phone] : 1980 To Whom It May Concern, Please excuse above patient from work, Sultana had an appt this morning at 7:40 a.m. Date of Illness: From: _ To: _ May Return to Work On:02-19-24 Restrictions: _NONE Comments: _ Sincerely, [place] [id number] XmtldwSjaddkProtestant HospitalAmbulatory Visit Summaryon 12-36-5954Ggswkbpcem Visit Summary SULTANA JOSHUA :1980 Visit Date:11/30/2023 [...] you for choosing us for your care. [facility] HospitalGeneral Surgery Office/Clinic Noteon 18-77-3704Afasmxe Surgery Office/Clinic NoteChief Complaint 1 month follow [...] with voice recognition artificial intelligence software, specifically [employer], [employer] and or [employer]. Substitutions may have occurred voice recognition and artificial intelligence software. Documentation services were performed after patient or guardian consented to allow [employer] to record this visit. ABBY purchasing specialist and provider reviewed before signing. ABBY: [...] pneumococcal 23-valent vaccine 11/07/2021 Recorded 2023-10-26: DATE: 07/16/2019Protestant HospitalComment on above:Result Comment: Electronically Signed By: Rajat [...] with voice recognition artificial intelligence software, specifically [employer], [employer] and or [employer]. Substitutions may have occurred voice recognition and artificial intelligence software. Documentation services were performed after patient or guardian consented to allow [employer] to record this visit. ABBY purchasing specialist and provider reviewed before signing. ABBY: [...] 23-valent vaccine 11/07/2021 Recorded 2023-10-26: VIS DATE: 07/16/2019Protestant HospitalComment on above:Result Comment: Electronically Signed By: Rajat Zeng MD\.br\Date and Time Signed: 11/05/23 15:39 EST\.br\Electronically Co-Signed By: Gillian Hernandez\.br\Date and Time Co-Signed: 11/02/23 09:39 ESTAmbulatory Visit Summaryon 49-69-4504Lplddtlunx Visit Summary SULTANA JOSHUA :1980 Visit Date:11/02/2023 [...] AM EDT With: Rajat Zeng MD Where: [facility] [facility] CenterProvider Letteron [id number] Letter November 02, 2023 SULTANA JOSHUA [address] [place] [id number] : 1980 To Whom It May Concern, Please excuse above patient from work. 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 male here for abscess on neck Patient was seen at [facility] on 10/21/2023 Bedside US done showing [...] with voice recognition artificial intelligence software, specifically [employer], [employer] and or [employer]. Substitutions may have occurred due to the inherent limitations of voice recognition and artificial intelligence software. Documentation services were performed after patient or guardian consented to allow [employer] to record this visit. ABBY purchasing specialist and provider reviewed before signing. ABBY: Ellevation Follow-up No qualifying data available Patient Education [...] History Diabetes mellitus type (more content not included)...Protestant HospitalComment on above:Result Comment: Electronically Signed By: Rajat Zeng MD\.br\Date and Time Signed: 10/29/23 08:41 EST\.br\Electronically Co- Signed By: Giovanna Sewell\.br\Date and Time Co-Signed: 10/26/23 11:30 EST Ambulatory Visit Summaryon [id number] Visit Summary SULTANA JOSHUA :1980 Visit Date:10/26/2023 [...] EST With: Azucena ARRIAGA, Rajat Hurd Where: [facility] General Surgery [facility] Medicine Office/Clinic Noteon [id number] Medicine Office/Clinic NoteChief Complaint ED follow up and Establish care HPI Staff Establish Care: History: Any previous diagnosis: DM, HTN History of seeing any specialist: n/a When was your last doctors visit: unknown Last provider: Monica Durán Any recent labs: Last August in [facility] UTD: Colonoscopy: no Acute: Current issues/complaints: ER followup: Hospital: [facility] Visit date:10/20/2023 Symptoms the patient presented [...] & Hyperlipidemia. He was seen at the [facility] Edfor the abscesses on the left side of his neck on 10/20/2023. He reports they gave him two oral ATB's and mupirocin topical for the area. He states they wanted him to make an appointment with Dr. Orourke, general surgery in [place] but told him to come to a [...] compresses to the area Awaiting report from [facility] ED Appointment today at 10 AM with General Surgeon at [facility] Ordered: [facility] Internal Ambulatory Referral 2. Encounter to establish [...] CNP, FAM Within 2 to [address] [place] [address] 44 (more content not included)...Protestant HospitalComment on above:Result Comment: Electronically Signed By: PASQUALE STERN CNP\.br\Date and Time Signed: 10/26/23 10:55 ESTPatient Educationon 78-04-3084Kggzzfm EducationGastroenterology Obesity, Adult Obesity is the condition [...] ovarian syndrome (PCOS). ? Binge-eating disorder. ? [place] syndrome. ? Taking certain medicines, such as [...] food choices, such as grocery stores and [employer]. What are the signs or symptoms? The [...] much you have to (more content not included)...[facility] EducationInfectious Disease Skin Abscess A skin abscess [...] these instructions at home: Medicines ? Take otls-ydg-izqvnlf and prescription medicines only as told by [...] cannot use soap and water, use hand ladies locker room attendant. ? Check your abscess every day for signs that the infection is getting worse. Check for: ? More redness, swelling, or pain. ? More fluid or blood. ? Warmth. ? More pus or a bad smell. General instructions ? To avoid spreading the infection: ? Do not share personal care items, towels, or hot tubs with others. ? Avoid making eczm-na-turm contact with other people. ? Keep all [...] provider. Document Revised: 12/07/2022 Document Reviewed: 06/12/2022 [employer] Patient Education ? 2022 ALTILIA.[facility] Provider Letteron [id number] Letter October 26, 2023 SULTANA JOSHUA [address] [place] [phone] : 1980 To Whom It May Concern, Please excuse above patient from work. Date of Illness: From: 10/26/2023 To: 10/28/2023 May Return to Work On:10/29/23 Restrictions: _ Comments: _ Sincerely, Rajat Zeng MD [facility] General SurgeryProtestant HospitalBasic Metabolic Profon 95-08-2973Ipxjx gap [Moles/Vol]11 mmol/LNormal9-17Wilson HealthComment on above:Performed By: #### ESTUARDO BMP, MG #### [facility] [address] [place] [address] [place] [address] Airplane Navigator: Norm Frank MDBUN/CRE Jgzbk97Uiduun2-46[facility] Comment on above:Performed By: #### ESTUARDO BMP, MG #### [facility] [address] [place] [address] Airplane Navigator: SUSANA Fairchildalcium [Mass/Vol]9.9 mg/dLNormal8.6-10.4Wilson HealthComment on above:Performed By: #### CDP BMP, MG #### [address] [place] [address] Airplane Navigator: SUSANA Fairchildhloride [Moles/Vol]106 mmol/JLoosgj22-207MxerjWilson HealthComment on above:Performed By: #### CDP, BMP, MG #### [address] [place] [address] Airplane Navigator: Norm Frank MDCO2 [Moles/Vol]24 mmol/NCqdyor30-42AgmkcWilson HealthComment on above:Performed By: #### CDP, BMP, MG #### [address] [place], [place] [id number] Airplane Navigator: SUSANA Fairchildreatinine [Mass/Vol]0.9 mg/dLNormal0.7-1.2MKettering Health HamiltonComment on above:Performed By: #### ESTUARDO BMP, MG #### [address] [place] [address] Airplane Navigator: Norm Frank MDGFR/1.73 sq M.predicted among non-blacks MDRD (S/P/Bld) [Vol rate/Area]mL/min/{1.73_m2}Normal>60Wilson HealthComment on above:Result Comment: These results are not [...] secretion.Performed By: #### CDP, BMP, MG #### [address] [place] [address] Airplane Navigator: Norm Frank MDGlucose [Mass/Vol]146 mg/kTNvka22-90XanbwKettering Health HamiltonComment on above:Performed By: #### CDP, BMP, MG #### [address] [place], [facility]83 Airplane Navigator: CAIO Fairchildotassium [Moles/Vol]4.4 mmol/LNormal3.7-5.3Mercy Vina HospitalComment on above:Performed By: #### CDP, BMP, MG #### [address] [place], [place] [address] Airplane Navigator: Norm Frank MDSodium [Moles/Vol]141 mmol/HZmfchs691-119Edgdm Tiffin HospitalComment on above:Performed By: #### CDP, BMP, MG #### [address] [place], [place] [address] Airplane Navigator: Norm Frank MDUrea nitrogen [Mass/Vol]13 mg/dLNormal6-20MerFulton County Health Center HospitalComment on above:Performed By: #### CDP, BMP, MG #### [address] [place], [facility]83 Airplane Navigator: TRISTA Fairchild with Diffon 47-83-4748Lqy. Basophil0.04 k/uL Normal0.00-0.20MerFulton County Health Center HospitalComment on above:Performed By: #### CDP, BMP, MG #### [address] [place], [place] [address] Airplane Navigator: Sunny Fairchild.Imm.Granulocyte<0.95Aczjsh2.00-0.30MerFulton County Health Center HospitalComment on above:Performed By: #### CDP, BMP, MG #### [address] [place] [address] Airplane Navigator: Sunny Fairchild.Neutrophil (Seg)2.92 k/uLNormal1.50-8.10MerFulton County Health Center HospitalComment on above:Performed By: #### CDP, BMP, MG #### [address] [place], [place] [address] Airplane Navigator: Norm Frank MDBasophils/100 WBC (Bld)1 %Normal0-2Mer[facility] Vina HospitalComment on above:Performed By: #### CDP, BMP, MG #### [address] [address] Airplane Navigator: Norm Frank MDEosinophils (Bld) [#/Vol]0.26 10*3/uLNormal 0.00-0.44MerFulton County Health Center HospitalComment on above:Performed By: #### CDP, BMP, MG #### [address] [place], [place] [address] Airplane Navigator: Norm Frank MDEosinophils/100 WBC (Bld)4 %Normal1-4MerFulton County Health Center HospitalComment on above:Performed By: #### CDP, BMP, MG #### [address] [place], [place] [address] Airplane Navigator: Norm Frank MDErythrocyte distribution width (RBC) [Ratio]12.6 % Yihnfy01.8-14.4[facility] HospitalComment on above:Performed By: #### CDP, BMP, MG #### [address] [place], [place] [address] Airplane Navigator: Norm Frank MDHematocrit (Bld) [Volume fraction]45.5 %Normal 40.7-50.3Mer[facility] Vina HospitalComment on above:Performed By: #### CDP, BMP, MG #### [address] [place] [address] Airplane Navigator: Norm Frank MDHemoglobin (Bld) [Mass/Vol]16.4 g/dLNormal 13.0-17.0MerFulton County Health Center HospitalComment on above:Performed By: #### CDP, BMP, MG #### [address] [place], [place] 9328183 Airplane Navigator: Boone Fairchildture granulocytes/100 WBC (Bld)0 %Zatger2YewgnWilson HealthComment on above:Performed By: #### CDP, BMP, MG #### [address] [place], [facility]83 Airplane Navigator: Norm Frank MDLymphocytes (Bld) [#/Vol]2.51 10*3/uLNormal 1.10-3.70Wilson HealthComment on above:Performed By: #### CDP, BMP, MG #### [address] [place], [facility]83 Airplane Navigator: Izzy Fairchildmphocytes/100 WBC (Bld)39 %Wynoie30-43HteeqWilson HealthComment on above:Performed By: #### CDP, BMP, MG #### [address] [place], [facility]83 Airplane Navigator: ISELA Fairchild (RBC) [Entitic mass]34.5 dzVndi21.2-33.5Wilson HealthComment on above:Performed By: #### CDP, BMP, MG #### [address] [place], [facility]83 Airplane Navigator: ISELA FairchildC (RBC) [Mass/Vol]36.0 g/pFEzfh42.4-34.8[facility] HealthComment on above:Performed By: #### CDP, BMP, MG #### [address] [place] [address] Airplane Navigator: MARIO FairchildCV (RBC) [Entitic vol]95.6 qQBnobmv55.6-102.9 [facility] HealthComment on above:Performed By: #### CDP, BMP, MG #### [facility] [address] [place], [place] 2418883 Airplane Navigator: MARIO Fairchildonocytes (Bld) [#/Vol]0.68 10*3/uLNormal0.10-1.20 [facility] HealthComment on above:Performed By: #### CDP, BMP, MG #### [address] [place] [address] Airplane Navigator: MARIO Fairchildonocytes/100 WBC (Bld)11 %Normal3-12Wilson HealthComment on above:Performed By: #### CDP, BMP, MG #### [address] [place], [place] 1778983 Airplane Navigator: Norm Frank MDNeutrophil (Seg)45 %Mjedvr95-42Agbiz Tiffin HospitalComment on above:Performed By: #### CDP, BMP, MG #### [address] [place], [place] 4356283 Airplane Navigator: Norm Frank MDNRBC Automated0.0 per 100 WBCNormal0.0Wilson HealthComment on above:Performed By: #### CDP, BMP, MG #### [address] [place], [place] [address]83 Airplane Navigator: Marisol Fairchild mean volume (Bld) [Entitic vol]9.8 fL Normal8.1-13.5Wilson HealthComment on above:Performed By: #### CDP, BMP, MG #### [address] [place], [place] 4290983 Airplane Navigator: CAIO Fairchildlatelets (Bld) [#/Vol]210 10*3/eCShptwr483-853 [facility] HospitalComment on above:Performed By: #### CDP, BMP, MG #### [address] [place], [place] 0859883 Airplane Navigator: MICA Fairchild (Bld) [#/Vol]4.76 10*6/uLNormal4.21-5.77[facility] HospitalComment on above:Performed By: #### ESTUARDO BMP, MG #### [facility] [address] [place], [place] [address]83 Airplane Navigator: PARISH Fairchild (d) [#/Vol]6.4 10*3/uLNormal3.5-11.3Mer[facility] Vina HospitalComment on above:Performed By: #### BELLA MARTE, MG #### [facility] [address] [place], [place] 3677183 Airplane Navigator: Norm Frank MDCT HEAD WO CONTRASTon 40-97-2908AM HEAD WO CONTRASTEXAMINATION: CT OF THE HEAD [...] Signed by: Dakota Bennett MD 06/22/23 Final resultNormalMerMt. Sinai HospitalCTA HEAD NECK W CONTRASTon 71-84-3192ZFC HEAD NECK W CONTRASTEXAMINATION: CTA OF THE [...] by: Virgil Steward MD 06/22/23 Final resultNormalMercy Hartford HospitalMagnesiumon 91-07-7466Yjicbxgex [Mass/Vol]1.8 mg/dLNormal1.6-2.6Mer[facility] Hartford HospitalComment on above:Performed By: #### BELLA MARTE MG #### [facility] [address] [place] [address] Airplane Navigator: Norm Frank MDHemoglobin A1Con 54-40-2126Okfyhas [Mass/Vol]146 mg/dLNormWadsworth-Rittman HospitalComment on above:Result Comment: The ADA and AACC recommend providing the estimated average glucose result to permit better patient understanding of their HBA1c result.Performed By: #### CP, CBC #### [facility] [address] [place] [address] [place]. [place], [place] 8254683 Airplane Navigator: Norm Frank MD #### BVTEST, GLYHGB #### [facility] [employer] [address] [place], [place] 0454[address] Airplane Navigator: Trenton Carbajal MDHbA1c (Bld) [Mass fraction]6.7 %High4.0-6.0Wilson HealthComment on above:Performed By: #### CP, CBC #### [facility] [address] [place] [address] Dr. [place], [place] 2821383 Airplane Navigator: Norm Frank MD #### BVTEST, GLYHGB #### [facility] [employer] [address] [place], [place] 9660[address] Airplane Navigator: Trenton Carbajal MDLipid Panelon 00-53-4372Pzjzuocrami [Mass/Vol] 185 mg/dLNINF - 200 mg/dLBON [facility] NORTHComment on above: Cholesterol Guidelines: <200 Desirable 200-240 Borderline >240 Undesirable Cholesterol in HDL [Mass/Vol]37 mg/dLLow40 - PINF mg/dLBON [facility] Comment on above: HDL Guidelines: <40 Undesirable 40-59 Borderline >59 Desirable Cholesterol in LDL [Mass/Vol]119 mg/dL0 - 130 mg/dLBON [facility] Comment on above: LDL Guidelines: <100 Desirable 100-129 Near to/above Desirable 130-159 Borderline >159 Undesirable Direct (measured) LDL and calculated LDL are not interchangeable tests. Cholesterol.total/Cholesterol in HDL [Mass ratio]5 {ratio}HighNINF - 5BON [facility] NORTHInterpretation and review of laboratory resultsAbnormalBON [facility] NORTHTriglyceride [Mass/Vol]144 mg/dLNINF - 150 mg/dLBON [facility] NORTHComment on above: Triglyceride Guidelines: <150 Desirable 150-199 Borderline 200-499 High >499 Very high Based on AHA Guidelines for fasting triglyceride, June 2012. [employer] KETTERING HEALTHLipid Profileon 45-23-5543Lmezscmbvmk [Mass/Vol]185 mg/dLNormal<200Mercy Vina HospitalComment on above:Result Comment: Cholesterol Guidelines: <200 Desirable 200-240 Borderline >240 UndesirablePerformed By: #### LIPR #### [facility] [address] [place] [address] Airplane Navigator: SUSANA Lopezholesterol in HDL [Mass/Vol]37 mg/dLLow>40Mercy Vina HospitalComment on above:Result Comment: HDL Guidelines: <40 Undesirable 40-59 Borderline >59 DesirablePerformed By: #### LIPR #### [facility] [employer] [address] [place] [address] Airplane Navigator: SUSANA Lopezholesterol in LDL [Mass/Vol]119 mg/dLNormal 0-130Mercy Vina HospitalComment on above:Result Comment: LDL Guidelines: <100 Desirable 100-129 Near to/above Desirable 130-159 Borderline >159 Undesirable Direct (measured) LDL and calculated LDL are not interchangeable tests.Performed By: #### LIPR #### [facility] [address] [place] [address] Airplane Navigator: Parish Lopez.total/Cholesterol in HDL [Mass ratio]5.0 {ratio}High<5Mer[facility] Vina HospitalComment on above:Performed By: #### LIPR #### [employer] [address] [place] [address] Airplane Navigator: Trenton Carbajal MDTriglyceride [Mass/Vol]144 mg/dLNormal<150Mercy Vina HospitalComment on above:Result Comment: Triglyceride Guidelines: <150 Desirable 150-199 Borderline 200-499 High >499 Very high Based on AHA Guidelines for fasting triglyceride, June 2012.Performed By: #### LIPR #### [employer] [address] [place] [phone] Airplane Navigator: Trenton Carbajal MDTestosterone Free Bio Totalon 44-46-2639Fth Hormone Megjckz17 nmol/L11 - 80 nmol/LBON [facility] NORTHTestosterone [Mass/Vol]752 ng/dL220 - 1000 ng/dLBON [facility] NORTHTestosterone, Bpnmniqnhzcy231.5 ng/dL130 - 680 ng/dLBON [facility] NORTHCombeaumont hospital on above: The concentration of bioavailable testosterone is derived from a mathematical expression based on the constant for the binding of testosterone to albumin and/or sex hormone binding globulin. Testosterone, Muzj731.3 pg/mL47 - 244 pg/mLBON [facility] NORTHCombeaumont hospital on above:The concentration of free testosterone is derived from a mathematical expression based on the constant for the binding of testosterone to albumin and/or sex hormone binding globulin. BON [facility] NORTHTestosterone,Bioavailon 18-16-4589Buc Horm Bind Glob56 nmol/UAtfhrm68-73ZlqsaWilson HealthComment on above:Performed By: #### SANJUANITA, CBC #### [address] [place] [address] Airplane Navigator: Norm Frank MD #### BVTEST, GLYHGB #### [facility] [employer] [facility] [place], [place] 7588608 Airplane Navigator: Trenton Carbajal MDTest,Ylgnopeq971.5 ng/bDPhmlem941-026NgnulWilson HealthCombeaumont hospital on above:Result Comment: The concentration of bioavailable testosterone is derived from a mathematical expression based on the constant for the binding of testosterone to albumin and/or sex hormone binding globulin.Performed By: #### SANJUANITA, CBC #### [address] [place] [address] Airplane Navigator: Norm Frank MD #### BVTEST, GLYHGB #### [facility] [employer] [address] [place] [address] Airplane Navigator: Trenton Carbajal MDTestosterone [Mass/Vol]752 ng/aBGgwzew813-2679 [facility] HealthComment on above:Performed By: #### CP, CBC #### [address] [place] [address] Airplane Navigator: Norm Frank MD #### BVTEST, GLYHGB #### [address] [id number] Airplane Navigator: Trenton Carbajal MDTestosterone,Shqu593.3 pg/vPOdxmtc81-203IevcrWilson HealthComment on above:Result Comment: The concentration of free testosterone is derived from a mathematical expression based on the constant for the binding of testosterone to albumin and/or sex hormone binding globulin.Performed By: #### SANJUANITA, CBC #### [address] [place], [place] 8034983 Airplane Navigator: Norm Frank MD #### BVTEST, GLYHGB #### [address] [id number] Airplane Navigator: SUSANA LopezBarnes-Jewish [facility] 35-83-3559Tgefhtjwcid distribution width (RBC) [Ratio]12.9 %Mmnsxo74.8-14.4Wilson HealthComment on above: Performed By: #### SANJUANITA, CBC #### [address] [place], [place] 0669583 Airplane Navigator: Norm Frank MD #### BVTEST, GLYHGB #### [address] [address] Airplane Navigator: Trenton Carbajal MDHematocrit (Bld) [Volume fraction]44.0 %Normal 40.7-50.3MKettering Health HamiltonComment on above:Performed By: #### SANJUANITA, CBC #### [address] [place], [place] 2638083 Airplane Navigator: Norm Frnak MD #### BVTEST, GLYHGB #### [address] [id number] Airplane Navigator: Trenton Carbajal MDHemoglobin (Bld) [Mass/Vol]15.7 g/dLNormal 13.0-17.0Wilson HealthComment on above:Performed By: #### CP, CBC #### [address] [place] [address] Airplane Navigator: Norm Frank MD #### BVTEST, GLYHGB #### [place] [address] [place], [place] 0093208 Airplane Navigator: MARIO LopezCH (RBC) [Entitic mass]33.9 juFgrf96.2-33.5 [facility] HealthComment on above:Performed By: #### CP, CBC #### [address] [place] [address]183 Airplane Navigator: Norm Frank MD #### BVTEST, GLYHGB #### [place] [address] [place] [id number] Airplane Navigator: MARIO LopezCHC (RBC) [Mass/Vol]35.7 g/bQTyxq05.4-34.8Wilson HealthComment on above:Performed By: #### CP, CBC #### [address] [place] [address] Airplane Navigator: Norm Frank MD #### BVTEST, GLYHGB #### [place] [address] [place] [id number] Airplane Navigator: MARIO LopezCV (RBC) [Entitic vol]95.0 pAGwjcch39.6-102.9 [facility] HealthComment on above:Performed By: #### CP, CBC #### [address] [place] [address] Airplane Navigator: Norm Frank MD #### BVTEST, GLYHGB #### [address] [address] Airplane Navigator: Trenton Carbajal MDNRBC Automated0.0 per 100 WBCNormal0.0[facility] on above:Performed By: #### CP, CBC #### [address] [place] [phone] ( Airplane Navigator: Norm Frank MD #### BVTEST, GLYHGB #### [address] [address] Airplane Navigator: Marisol Lopez mean volume (Bld) [Entitic vol]10.6 fL Normal8.1-13.5Wilson HealthCombeaumont hospital on above:Performed By: #### SANJUANITA, CBC #### [address] [place] [address] Airplane Navigator: Norm Frank MD #### BVTEST, GLYHGB #### [address] [address] Airplane Navigator: Christiano Lopez (Bld) [#/Vol]187 10*3/sGJfkffg925-835 [facility] HealthCombeaumont hospital on above:Performed By: #### CP, CBC #### [address] [place] [address] Airplane Navigator: Norm Frank MD #### BVTEST, GLYHGB #### [address] [address] Airplane Navigator: MICA Lopez (Bld) [#/Vol]4.63 10*6/uLNormal4.21-5.77 [facility] on above:Performed By: #### CP, CBC #### [address] [place] [phone] Airplane Navigator: Norm Frank MD #### BVTEST, GLYHGB #### [facility] [employer] [address] [place], [place] 3033508 Airplane Navigator: Trenton Carbajal MDWBC (Bld) [#/Vol]5.3 10*3/uLNormal3.5-11.3MKettering Health HamiltonComment on above:Performed By: #### CP, CBC #### [facility] [address] [place] [address] Airplane Navigator: Norm Frank MD #### BVTEST, GLYHGB #### [facility] [employer] [address] [place] [address] Airplane Navigator: Trenton Carbajal MDHematocrit (Bld) [Volume fraction]44.0 %40.7 - 50.3 %[facility] HOSPITALHemoglobin (Bld) [Mass/Vol]15.7 g/dL13.0 - 17.0 g/dLBON [facility] NORTHInterpretation and review of laboratory results AbnormalWINCHESTER MEDICAL CENTERH (RBC) [Entitic mass]33.9 llTvrf07.2 - 33.5 pgWINCHESTER MEDICAL CENTERHC (RBC) [Mass/Vol]35.7 g/vPDdrv56.4 - 34.8 g/dLBON [facility] MEDICAL CENTERV (RBC) [Entitic vol]95.0 fL82.6 - 102.9 fLSENTARA VIRGINIA BEACH GENERAL HOSPITALNRBC Automated0.00.0 per 100 WBCSENTARA VIRGINIA BEACH GENERAL HOSPITALPlatelet distribution width (Bld) [Ratio]12.9 %11.8 - 14.4 %[facility] Platelet mean volume (Bld) [Entitic vol]10.6 fL8.1 - 13.5 fLSENTARA VIRGINIA BEACH GENERAL HOSPITALPlatelets (Bld) [#/Vol]187 10*3/uLBON [facility] NORTHRBC (Bld) [#/Vol]4.63 10*6/uL4.21 - 5.77 m/uLBON [facility] NORTHWBC (Bld) [#/Vol]5.3 10*3/uLBON [facility] Metabolic Profon 02-64-6371Izjradp [Mass/Vol]4.4 g/dLNormal3.5-5.2MKettering Health HamiltonComment on above:Performed By: #### CP, CBC #### [address] [place] [address] Airplane Navigator: Norm Frank MD #### BVTEST, GLYHGB #### [address] [address] Airplane Navigator: Trenton Carbajal MDAlbumin/Glob Ratio1.6Xlvhed0.0-2.5Wilson HealthComment on above:Performed By: #### SANJUANITA, CBC #### [address] [place], [place] [id number] Airplane Navigator: Norm Frank MD #### BVTEST, GLYHGB #### [address] [address] Airplane Navigator: Heather Lopez Phos61 U/LZlazbr63-654PefkeWilson HealthComment on above:Performed By: #### SANJUANITA, CBC #### [address] [place] [address] Airplane Navigator: Norm Frank MD #### BVTEST, GLYHGB #### [address] [address] Airplane Navigator: Trenton Carbajal MDALT [Catalytic activity/Vol]40 U/LNormal5-41 [facility]Com[facility] on above:Performed By: #### SANJUANITA, CBC #### [address] [place] [address] Airplane Navigator: Norm Frank MD #### BVTEST, GLYHGB #### [address] [address] Airplane Navigator: Trenton Carbajal MDAnion gap [Moles/Vol]11 mmol/LNormal9-17Wilson HealthComment on above:Performed By: #### CP, CBC #### [facility] [address] [place] [address] [address] [place], [place] [phone] Airplane Navigator: Norm Frank MD #### BVTEST, GLYHGB #### [address] [phone] Airplane Navigator: Trenton Carbajal MDAST [Catalytic activity/Vol]23 U/LNormal<40Wilson HealthComment on above:Performed By: #### SANJUANITA, CBC #### [facility] [address] [place] [address] Dr[address] [place], [place] [phone] Airplane Navigator: Norm Frank MD #### BVTEST, GLYHGB #### [address] [address] Airplane Navigator: Trenton Carbajal MDBilirubin [Mass/Vol]0.4 mg/dLNormal0.3-1.2MKettering Health HamiltonComment on above:Performed By: #### SANJUANITA, CBC #### [address] [place], [place] [address]83 Airplane Navigator: Norm Frank MD #### BVTEST, GLYHGB #### [address] [address] Airplane Navigator: Trenton Cabrajal MDBUN/CRE Sorpm89Lmsyxo7-54Hkicf [facility] Comment on above:Performed By: #### SANJUANITA, CBC #### [address] [place], [place] [phone] Airplane Navigator: Norm Frank MD #### BVTEST, GLYHGB #### [address] [address] Airplane Navigator: SUSANA Lopezalcium [Mass/Vol]9.8 mg/dLNormal8.6-10.4Wilson HealthComment on above:Performed By: #### CP, CBC #### [address] [place] [phone] Airplane Navigator: Norm Frank MD #### BVTEST, GLYHGB #### [address] [id number] Airplane Navigator: SUSANA Lopezhloride [Moles/Vol]106 mmol/IUzsddx97-580ZhofeWilson HealthComment on above:Performed By: #### CP, CBC #### [address] [place] [phone] Airplane Navigator: Norm Frank MD #### BVTEST, GLYHGB #### [place] [phone] Airplane Navigator: SUSANA LopezO2 [Moles/Vol]23 mmol/WGxowgr60-72JfgmyWilson HealthComment on above:Performed By: #### CP, CBC #### [address] [place] [phone] Airplane Navigator: Norm Frank MD #### BVTEST, GLYHGB #### [address] [address] Airplane Navigator: SUSANA Lopezreatinine [Mass/Vol]0.73 mg/dLNormal0.70-1.20 Wilson HealthComment on above:Performed By: #### CP, CBC #### [address] [place] [address] Airplane Navigator: Norm Frank MD #### BVTEST, GLYHGB #### [address] [phone] Airplane Navigator: Trenton Carbajal MDGFR/1.73 sq M.predicted among non-blacks MDRD (S/P/Bld) [Vol rate/Area]mL/min/{1.73_m2}Normal>60Wilson HealthCombeaumont hospital on above:Result Comment: Effective Jun 19, [...] tubular secretion.Performed By: #### CP, CBC #### [address] [place] [address] Airplane Navigator: Norm Frank MD #### BVTEST, GLYHGB #### [address] [phone] Airplane Navigator: Trenton Carbajal MDGlucose [Mass/Vol]179 mg/tVEzrm14-71Wzyqf[address] [place], [place] [address]Comment on above:Performed By: #### SANJUANITA, CBC #### [address] [place] [address] Airplane Navigator: Norm Frank MD #### BVTEST, GLYHGB #### [address] [phone] Airplane Navigator: Trenton Carbajla MDPotassium [Moles/Vol]4.1 mmol/LNormal3.7-5.3 Wilson HealthComment on above:Performed By: #### SANJUANITA, CBC #### [address] [place] [address] Airplane Navigator: Norm Frank MD #### BVTEST, GLYHGB #### [address] [phone] Airplane Navigator: Trenton Carbajal MDProtein [Mass/Vol]7.1 g/dLNormal6.4-8.3Mdetwiler memorial hospitaly Hartford HospitalComment on above:Performed By: #### CP, CBC #### [address] [place] [address] Airplane Navigator: Norm Frank MD #### BVTEST, GLYHGB #### [place] [address] [place], [place] [phone] Airplane Navigator: EDGAR Lopezodium [Moles/Vol]140 mmol/GZwfyus515-332RolaqWilson HealthComment on above:Performed By: #### CP, CBC #### [address] [place] [address] Airplane Navigator: Norm Frank MD #### BVTEST, GLYHGB #### [place] [address] [place], [place] [phone] Airplane Navigator: Trenton Carbajal MDUrea nitrogen [Mass/Vol]14 mg/dLNormal6-20Wilson HealthComment on above:Performed By: #### CP, CBC #### [address] [place] [address] Airplane Navigator: Norm Frank MD #### BVTEST, GLYHGB #### [place] [address] [place], [place] [phone] Airplane Navigator: SUSANA Lopezomprehensive Metabolic Panelon 09-01-2022 Albumin [Mass/Vol]4.4 g/dL3.5 - 5.2 g/dLBON [facility] NORTHAlbumin/Globulin [Mass ratio]1.6 {ratio}1.0 - 2.5[facility] HEALTHALP (Bld) [Catalytic activity/Vol]61 U/L40 - 129 U/LBON [facility] HEALTHALT [Catalytic activity/Vol]40 U/L5 - 41 U/LBON [facility] NORTHAnion gap [Moles/Vol]11 mmol/L9 - 17 mmol/LBON [facility] HEALTHAST [Catalytic activity/Vol]23 U/L NINF - 40 U/LBON [facility] NORTHBilirubin [Mass/Vol]0.4 mg/dL0.3 - 1.2 mg/dLBON [facility] NORTHCalcium [Mass/Vol]9.8 mg/dL8.6 - 10.4 mg/dLBON [facility] NORTHChloride [Moles/Vol]106 mmol/L98 - 107 mmol/LBON [facility] NORTHCO2 [Moles/Vol]23 mmol/L20 - 31 mmol/LBON [facility] Creatinine [Mass/Vol]0.73 mg/dL0.70 - 1.20 mg/dLB[facility] Expert NetworksGFR/1.73 sq M.predicted MDRD (S/P/Bld) [Vol rate/Area]- [facility] Comment on above: Effective Jun 19, [...] that affects renal tubular secretion. Glucose [Mass/Vol]179 mg/kKScnv83 - 99 mg/dLBON [facility] Interpretation and review of laboratory resultsAbnormalBON [facility] Potassium [Moles/Vol]4.1 mmol/L3.7 - 5.3 mmol/LBON [facility] NORTHProtein [Mass/Vol]7.1 g/dL6.4 - 8.3 g/dLBON [facility] NORTHSodium [Moles/Vol]140 mmol/L135 - 144 mmol/LBON [facility] NORTHUrea nitrogen (BldV) [Mass/Vol]14 mg/dL6 - 20 mg/dLB[facility] Expert NetworksUrea nitrogen/Creatinine (Bld) [Mass ratio]199 - 20B[facility] NORTHBON [facility] NORTHXR RIBS RIGHT (2 VIEWS)on [id number] acute osseous abnormality of the right ribs.[facility] [employer]- [place], KYEXAMINATION: 2 XRAY VIEWS OF THE RIGHT RIBS 09/13/2020 4:22 pm COMPARISON: None. HISTORY: ORDERING SYSTEM PROVIDED HISTORY: Right-sided chest pain TECHNOLOGIST PROVIDED HISTORY: right sided chest pain, s/p injury FINDINGS: AP and oblique views of the right chest wall are submitted for review. No acute fracture or dislocation identified. Overlying soft tissues are unremarkable. Visualized lung parenchyma is clear.[facility], LAYOEdi, Mhpn Incoming Radiant Results From Powerscribe/Pacs [...] acute osseous abnormality of the right ribs. [facility], KYALTon [id number] [Catalytic activity/Vol]37 U/L5 - 41 U/L [facility], KYASTon [id number] [Catalytic activity/Vol]19 U/L<40[facility] Health- [place], KYBasic Metabolic Panelon 05-08-1092Wozju gap [Moles/Vol]10 mmol/L9 - 17 mmol/LMst. charles hospital Health- [place], KYBun/Cre Bwzjn73Xafpw Health- [place], KYCalcium [Mass/Vol]9.9 mg/dL8.6 - 10.4 mg/dLSelect [facility] Health- [place], KYChloride [Moles/Vol]99 mmol/L98 - 107 mmol/LMdetwiler memorial hospitaly Health- [place], KYCO2 [Moles/Vol]25 mmol/L20 - 31 mmol/L [facility] Health- [place], KYCreatinine [Mass/Vol]0.77 mg/dL0.7 - 1.2 mg/dLSelect [facility] Health- [place], KYGFR >60>60 mL/minSelect [facility]ty [facility] Health- [place], KYGFR Non->60>60 mL/minSelect [facility]ty [facility] Health- [place], KYGlucose [Mass/Vol]140 mg/hWCfdz59 - 99 mg/dLSelect [facility] Health- [place], KYInterpretation and review of laboratory resultsAbnormal [facility], HIPotassium [Moles/Vol]4.0 mmol/L3.7 - 5.3 mmol/LMBlanchard Valley [facility], HISodium [Moles/Vol]134 mmol/EVfb226 - 144 mmol/LMBlanchard Valley Health [facility], HIUrea nitrogen [Mass/Vol]14 mg/dL6 - 20 mg/dLUniversity [facility]als [facility], HICBCon 07-21-2020 Erythrocyte distribution width (RBC) [Ratio]12.3 %11.8 - 14.4 %[facility], HIHematocrit (Bld) [Volume fraction]48.7 %40.7 - 50.3 %[facility], HI Hemoglobin (Bld) [Mass/Vol]17.4 g/wUQfdm05 - 17 g/dLSioux [place], [place] Interpretation and review of laboratory resultsAbnormMercy Health St. [facility], HIMCH (RBC) [Entitic mass]33.4 pg25.2 - 33.5 pgUniversity Hospitals Ge[facility], HIMCHC (RBC) [Mass/Vol]35.7 g/eVMqmz11.4 - 34.8 g/dLUniversity [facility]als [facility], HIMCV (RBC) [Entitic vol]93.5 fL82.6 - 102.9 fLSioux Falls, KYPlatelet mean volume (Bld) [Entitic vol]10.1 fL8.1 - 13.5 fLUniversity Hospitals Geauga Medical Center, HIPlatelets (Bld) [#/Vol]206 10*3/[facility], HIRBC (Bld) [#/Vol]5.21 10*6/uL4.21 - 5.77 m/[facility], HIWBC (Bld) [#/Vol]7.8 10*3/[facility], HIWBC (Bld) [#/Vol] 0.0 10*3/uL0.0 per 100 WBCSioux Falls, KYLipid Panelon 07-21-2020 Cholesterol [Mass/Vol]190 mg/dL<200[place], KYComment on above: Cholesterol Guidelines: <200 Desirable 200-240 Borderline >240 Undesirable Cholesterol in HDL [Mass/Vol]36 mg/dLLow>40[facility]- [place], KYComment on above: HDL Guidelines: <40 Undesirable 40-59 Borderline >59 Desirable Cholesterol in LDL [Mass/Vol]107 mg/dL0 - 130 mg/dLSioux Falls, KYComment on above: LDL Guidelines: <100 Desirable 100-129 Near to/above Desirable 130-159 Borderline >159 Undesirable Direct (measured) LDL and calculated LDL are not interchangeable tests. Cholesterol in VLDL [Mass/Vol]NOT REPORTEDHigh1 - 30 mg/dLSioux Falls, [place] Cholesterol.total/Cholesterol in HDL [Mass ratio]5.3 {ratio}High<5[place], KYInterpretation and review of laboratory resultsAbnormalSioux Falls, KYTriglyceride [Mass/Vol]235 mg/dLHigh<150[place], KYComment on above: Triglyceride Guidelines: <150 Desirable 150-199 Borderline 200-499 High >499 Very high Based on AHA Guidelines for fasting triglyceride, June 2012. Metabolic Panelon [id number]/1.73 sq M predicted among non-blacks MDRD (S/P/Bld) [Vol rate/Area][place], KYComment on above:Stage 1: Some kidney damage [...] body mass. Additional eGFR calculator available at: http://www.[employer]/multiple_crcl_2012.htm BILIRUBIN CONJUGATED (DIRECT)on [id number], CONJUGATED0.2 mg/dLNormal0.0-0.3 The [facility] SouthComment on above:Performed By: #### DBIL #### [facility] Laboratory [address] [place] [address] Taras VazquezCommunity [facility] AUTO DIFFon 53-98-2379Gjpevikup (Bld) [#/Vol]0.0 103/ulNormal 0.0-0.1The [facility] SouthComment on above:Performed By: #### CBC #### [facility] [address] [place], [place] [address] Taras KarenBasophils/100 WBC (Bld)0.7 %Normal0.2-2.0The [facility] Comment on above:Performed By: #### CBC #### [facility] [address] [place] [address] Taras KarenEosinophils (Bld) [#/Vol]0.1 103/ulNormal0.0-0.7The [facility] SouthComment on above:Performed By: #### CBC #### [facility] [address] [place] [address] Taras KarenEosinophils/100 WBC (Bld)1.8 %Normal0.9-7.0The [facility] Comment on above:Performed By: #### CBC #### [facility] [address] [place] [address] Taras KarenErythrocyte distribution width (RBC) [Ratio]12.5 %Ibnecs15.0-15.0The [facility] SouthComment on above:Performed By: #### CBC #### [facility] [address] [place] [address] Taras KarenHematocrit (Bld) [Volume fraction]48.4 %Cgqqyj67.0-54.0The [facility] SouthComment on above:Performed By: #### CBC #### [facility] [address] [place] [address] Taras KarenHemoglobin (Bld) [Mass/Vol]17.3 g/bRCbqlxc27.0-18.0The [facility] SouthComment on above:Performed By: #### CBC #### [facility] [address] [place] [address] Taras KarenIG #0.02 10e3/ulNormal0.00-0.03The [facility] SouthComment on above:Performed By: #### CBC #### [facility] [address] [place] [address] Taras KarenIG %0.3 %Normal0.0-0.5The [facility] SouthComment on above: Performed By: #### CBC #### [facility] [address] [place] [address] Taras KarenLymphocytes (Bld) [#/Vol]1.9 103/ulNormal1.2-3.8The [facility] SouthComment on above:Performed By: #### CBC #### [facility] [address] [place] [address] Taras KarenLymphocytes/100 WBC (Bld)30.5 %Atyfnu48.5-60.0[facility] Comment on above:Performed By: #### CBC #### [facility] [address] [place] [address] Taras KarenMANUAL DIFF REQNONormalThe [facility] SouthComment on above: Performed By: #### CBC #### [facility] [address] [place] [address] Taras KarenMCH (RBC) [Entitic mass]33.6 grHcpdpf38.9-34.0[facility] Comment on above:Performed By: #### CBC #### [facility] [address] [place] [address] Taras KarenMCHC (RBC) [Mass/Vol]35.7 g/dLCritically high29.9-35.2[facility] HospitalComment on above:Performed By: #### CBC #### [facility] [address] [place] [address] Taras KarenMCV (RBC) [Entitic vol]94.0 wGGntcmq30.0-94.0[facility] Comment on above:Performed By: #### CBC #### [facility] [address] [place] [address] Taras KarenMonocytes (Bld) [#/Vol]0.5 103/ulNormal0.3-0.8ThSelect Medical Specialty Hospital [facility] Comment on above:Performed By: #### CBC #### [facility] [address] [id number] Taras KarenMonocytes/100 WBC (Bld)8.0 %Normal1.7-12.0[facility] Comment on above:Performed By: #### CBC #### [facility] [address] [address] Taras KarenNeutrophils (Bld) [#/Vol]3.6 103/ulNormal1.4-6.5ThSelect Medical Specialty Hospital - Columbus SouthComment on above:Performed By: #### CBC #### [facility] [address] [place] [address] Taras KarenNeutrophils/100 WBC (Bld)58.7 %Xcjjkn88.0-75.0[facility] Comment on above:Performed By: #### CBC #### [facility] [address] [place] [address] Taras KarenPlatelet mean volume (Bld) [Entitic vol]10.4 fLNormal9.5-13.5ThSelect Medical Specialty Hospital - Columbus SouthComment on above:Performed By: #### CBC #### [facility] [address] [place] [address] Taras KarenPlatelets (Bld) [#/Vol]203 103/dlLaaqxi009-586SmbBellevue Hospital Comment on above:Performed By: #### CBC #### [facility] [address] [place] [address] Taras KarenRBC (Bld) [#/Vol]5.15 106/ulNormal4.70-6.10ThSelect Medical Special[facility] Comment on above:Performed By: #### CBC #### [facility] [address] [place] [address] Taras KarenWBC (Bld) [#/Vol]6.1 103/ulNormal4.0-11.0[facility] Comment on above:Performed By: #### CBC #### [facility] [address] [place] [address] Taras KarenGLYCOHEMOGLOBIN A1Con 77-00-6989Bbjxsfg [Mass/Vol]232 mg/dLSelect Medical Specialty Hospital - TrumbullComment on above:Performed By: #### A1C #### [facility] [address] [place], [place] [address] Taras XtqelYwS0w (Bld) [Mass fraction]9.7 %Critically high<=6.0[facility] HospitalComment on above:Performed By: #### A1C #### [facility] [address] [place] [address] Taras KarenLIPID PROFILEon 35-05-4604EYEI-HDL RATIO NORMSEE [facility] Community HospitalComment on above:Result Comment: 3.3 - 4.4 LOW RISK 4.4 - 7.1 AVERAGE RISK 7.1 - 11.0 MODERATE RISK >11.0 HIGH RISKPerformed By: #### CMP, LIPID #### [facility] [address] [place] [address] Taras KarenCholesterol [Mass/Vol]244 mg/dLCritically high<=200The [facility] SouthComment on above:Performed By: #### CMP, LIPID #### [facility] [address] [place] [address] Taras KarenCholesterol in HDL [Mass/Vol]> or = 60 mg/dl - LOW CARDIOVASCULAR RISK <40 mg/dl - HIGH CARDIOVASCULAR RISKSelect Medical Specialty Hospital - TrumbullCombeaumont hospital on above:Performed By: #### CMP, LIPID #### [facility] [address] [place] [address] Taras KarenCholesterol in HDL [Mass/Vol]35 mg/dLSelect Medical Specialty Hospital - [facility]ull Comment on above:Performed By: #### CMP, LIPID #### [facility] [address] [place] [address] Taras KarenCholesterol in LDL [Mass/Vol]179.8 mg/dLSelect Medical Specialty Hospital - [facility] Comment on above:Performed By: #### CMP, LIPID #### [facility] [address] [place], [place] [address] Taras KarenCholesterol in LDL [Mass/Vol]SEE [facility] Comment on above:Result Comment: <100 mg/dl OPTIMAL 100 - 129 mg/dl NEAR OR ABOVE OPTIMAL 130 - 159 mg/dl BORDERLINE HIGH 160 - 189 mg/dl HIGH >190 mg/dl VERY HIGHPerformed By: #### CMP, LIPID #### [facility] [address] [place], [place] [address] Taras KarenCholesterol.total/Cholesterol in HDL [Mass ratio]7.0 {ratio}Normal The [facility] SouthComment on above:Performed By: #### CMP, LIPID #### [facility] [address] [place], [place] [address] Taras KarenTriglyceride [Mass/Vol]146 mg/dLNormal<=150[facility] Comment on above:Performed By: #### CMP, LIPID #### [facility] [address] [place] [address] Taras KarenVLDL CALC29.2 mg/dLNormalThSelect Medical Specialty Hospital - [facility] SouthComment on above: Performed By: #### CMP, LIPID #### [facility] [address] [place], [place] [address] Taras KarenPROF 14(COMP METB)on 89-96-8725Cwnicdk [Mass/Vol]4.2 g/dLNormal 3.5-5.0[facility] HospitalComment on above:Performed By: #### CMP, LIPID #### [facility] [address] [place], [place] [address] Taras KarenAlbumin/Globulin [Mass ratio]1.3 {ratio}NormalBellevue Hospital Comment on above:Performed By: #### CMP, LIPID #### [facility] [address] [place], [place] [address] Taras KarenALP [Catalytic activity/Vol]66 U/HUdaooy32-922UopBellevue Hospital Comment on above:Performed By: #### CMP, LIPID #### [facility] [address] [place], [place] [address] Taras KarenALT [Catalytic activity/Vol]66 U/NJbyhpi07-79KdbBellevue Hospital Comment on above:Performed By: #### CMP, LIPID #### [facility] [address] [place], [place] [address] Taras KarenAnion gap [Moles/Vol]11.4 mmol/LNormalBellevue HospitalComment on above:Performed By: #### CMP, LIPID #### [facility] [address] [address] Taras KarenAST [Catalytic activity/Vol]31 U/UBmxqor54-15RgmBellevue Hospital Comment on above:Performed By: #### CMP, LIPID #### [facility] [address] [address] Taras KarenBilirubin Ql (U)0.8 mg/dLNormal0.2-1.3TMary Rutan HospitalComment on above:Performed By: #### CMP, LIPID #### [facility] [address] [address] Taras KarenCalcium [Mass/Vol]9.7 mg/dLNormal8.4-10.2[facility] Comment on above:Performed By: #### CMP, LIPID #### [facility] [address] [address] Taras KarenChloride [Moles/Vol]101 mmol/OYbeuwn42-378HykBellevue Hospital Comment on above:Performed By: #### CMP, LIPID #### [facility] [address] [place] [address] Taras KarenCO2 [Moles/Vol]29.1 mmol/SXbbuxy46.0-30.0[facility] Comment on above:Performed By: #### CMP, LIPID #### [facility] [address] [address] Taras KarenCreatinine [Mass/Vol]0.98 mg/dLNormal0.66-1.25The [facility] Comment on above:Performed By: #### CMP, LIPID #### [facility] [address] [place] [address] Taras KarenEGFR-AF EMIRATI>60Normal>=60[facility] HospitalComment on above: Performed By: #### CMP, LIPID #### [facility] [address] [address] Taras KarenEGFR-NON AF EMIRATI>60Normal>=60The [facility] SouthComment on above:Performed By: #### CMP, LIPID #### [facility] [address] [address] Taras KarenGlobulin (S) [Mass/Vol]3.3 g/dLNormalThSelect Medical Specialty Hospital - [facility] SouthComment on above:Performed By: #### CMP, LIPID #### [facility] [address] [address] Taras KarenGlucose [Mass/Vol]248 mg/dLCritically uuno25-143Tjp [facility] SouthComment on above:Performed By: #### CMP, LIPID #### [facility] [address] [place] [address] Taras KarenPotassium [Moles/Vol]4.5 mmol/LNormal3.4-5.0The [facility] Comment on above:Performed By: #### CMP, LIPID #### [facility] Laboratory [address] [place] [address] Taras KarenProtein [Mass/Vol]7.5 g/dLNormal6.1-8.2The [facility] SouthComment on above:Performed By: #### CMP, LIPID #### [facility] Laboratory [address] [place] [address] Taras KarenSodium [Moles/Vol]137 mmol/GIdffwy103-892Asd [facility] Comment on above:Performed By: #### CMP, LIPID #### [facility] [address] [place] [address] Taras KarenUrea nitrogen [Mass/Vol]13.0 mg/dLNormal9.0-20.0The [facility] SouthComment on above:Performed By: #### CMP, LIPID #### [facility] [address] [place] [address] Taras KarenUrea nitrogen/Creatinine [Mass ratio]13.3 mg/mgNormalThe [facility] SouthComment on above:Performed By: #### CMP, LIPID #### [facility] [address] [place] [address] Taras Cathi Vital Signs Date TimeVital SignValuePerforming VzcnbmsmdIduembob99-93-9859 08:39-0400 Diastolic blood xngzeqrv57 mm[Hg]Rajat Zeng [phone]-Aslcd[address] [place] [address] General Surgery [place] 11-30-2023 08:39-0400Mean blood wdftuqnm965 mm[Hg]Rajat Cobosy [phone]-Yyzui[address] [place] [address] General Surgery [place] 11-30-2023 08:39-0400Systolic blood yslqnttv322 mm[Hg]Rajat Majorurany [phone]-Ivyhv[address] [place] [address] General Surgery [place] 11-30-2023 08:31-0400Blood Pressure LocationJogabriela Mourany [phone]-Ooxte[address] [place] [address] General Surgery [place] 11-30-2023 08:31-0400Diastolic blood qwqrutah221 mm[Hg]Rajat Zeng [phone]-Huvhc[address] [place] [address] General Surgery [place] 11-30-2023 08:31-0400Heart rate86 /minJohn Mourany [phone]-Napql[address] [place] [address] General Surgery [place] 11-30-2023 08:31-0400Respiratory rate16 /minJohn Mourany [phone]-Egnsm[address] [place] [address] General Surgery [place] 11-30-2023 08:31-0400Systolic blood mm[Hg]Rajat Zeng [phone]-Scdhk[address] [place] [address] General Surgery [place] 10-26-2023 10:10-0500Blood Pressure LocationJohn Mourany [phone]-Uqlzh[address] [place] [address] General Surgery [place] 10-26-2023 10:10-0500Diastolic blood mm[Hg]Rajat Zeng [phone]-Xkcvp[address] [place] [address] General Surgery [place] 10-26-2023 10:10-0500Heart rate88 /minJohn Mourany [phone]-ApjbnWilson Health General Surgery [place] 10-26-2023 10:10-0500Respiratory rate18 /Devin Zeng [phone]-NsusfWilson Health [facility] 10-26-2023 10:10-0500Systolic blood ekveelgu825 mm[Hg]Rajat Zeng [phone]-GacioSelect Medical [facility] Encounters Encounter DateEncounter TypeCare ProviderFacilityStart: 44-21-8370fegiuayhnzGccd L SchwabFacility:[facility] BellevueStart: 99-54-1871fnsbeyzcnrGrhw L Lana Facility: [facility] BellevueStart: 07-21-2025 End: 52-13-2388osnojvkdvlXZY Emily L SchwabFacility:FTMCStart: 06-30-2025 End: 71-61-5836qiehxaaknqJigf L SchwabFacility: [facility] BellevueStart: 05-14-2025 End: 77-68-0960xvazocbyozDZALTM A LEHMANNFacility: FM BellevueStart: 04-07-2025 End: 93-74-9754sasqucwkaeGULEIR A LEHMANNFacility: [facility] BellevueStart: 01-13-2025 End: 64-33-1234qltiwjrpmmOGUDRM A LEHMANNFacility: FM BellevueStart: 10-14-2024 End: 72-02-1376Vwz Drop offSHELLY A LEENA [facility] Start: 10-14-2024 End: 79-22-7510wcigdhnqusOPDTNG A LEHMANNFacility: [facility] BellevueStart: 08-15-2024 End: 58-65-7485nbgfhkfkazEANEBI A LEHMANNFacility:[facility] BellevueStart: 07-10-2024 End: 13-01-6121Oll Drop offSHELLY A LEENA [facility] Start: 07-10-2024 End: 51-56-9748pkzrrogbkeWIVFEW A LEHMANNFacility:FT FM BellevueStart: 05-15-2024 End: 54-15-9509hmiqzxhvsoWQIMLZ A LEHMANNFacility:FT FM BellevueStart: 04-15-2024 End: 18-86-4428zpeeoocxumPDLDID A LEHMANNFacility:FT FM BellevueStart: 04-09-2024 End: 06-55-1395bbmxrtuihdVJEKLQ A LEHMANNFacility:FT FM BellevueStart: 03-18-2024 End: 29-21-3590nzqhemjslxKTJHUL A LEHMANNFacility:FT FM BellevueStart: 02-21-2024 End: 26-16-1876Bnn Drop offSHELLY A LEENA [facility] Start: 02-21-2024 End: 19-60-7571ibyfnxayvfFBUYHW A LEHMANNFacility:FT FM BellevueStart: 02-19-2024 End: 11-45-8595kmgrdscwwuSMRDIK A LEHMANNFacility:FT FM BellevueStart: 71-72-2768zkljwqgsyaOWSVXB A LEHMANNFacility: [facility] BellevueStart: 11-30-2023 End: 62-92-6934afrpalnushHttf E. MouranyFacility:[facility] Hospitaltart: 11-30-2023 End: 78-61-0123Ougettb encounter procedureJohn E. Mourany [phone]-GggqkWilson Health General Surgery [place] Start: 11-02-2023 End: 79-36-6637wdyhonesynYpfn E. MouranyFacility: DakotaKeraFASTtart: 11-02-2023 End: 04-87-6197Efeevuu encounter procedureJohn E. Mourany [phone]-WydvlMercy Hospital Surgery [place] Start: 98-89-3270xuivucgtgkHcmb MouranyFacility:[facility] Centertart: 10-26-2023 End: 08-75-2881yoeunzeiqyLomr E. MouranyFacility:[facility] Hospitaltart: 10-26-2023 End: 58-43-9077Offxswv encounter procedureRajat Zeng [phone]-NopwpSelect Medical [facility] Start: 10-26-2023 End: 57-40-3452gdnceohtzxQUVKPF A LEHMANNFacility:FT BellevueStart: 23-71-7574kigatedfndFwsq MouranyFacility:[facility] BellevueStart: 06-22-2023 End: 71-70-5494Xroijruum department patient visitTONY Nava Vina HospitalStart: 09-13-2022 End: 68-46-5960gzcqfgeauuMWTOMIPilar Tolentino Vina HospitalStart: 09-13-2022 End: 72-39-6536Zfdcgmcbiu hospital visit by Yeny Dixon PTMTHZ Physical TherapyComment on above:ArrivedStart: 09-01-2022 End: 33-97-6191arvkzrqnsiSPLBKMPilar Tolentino [facility]ina HospitalStart: 09-01-2022 End: 11-17-0087Dtmyiqybvh hospital visit by Candido Durán APRN - JADYN Work Phone: mthz LaboratoryComment on above:Other hyperlipidemia; Type 2 diabetes mellitus without complication, without long-term current use of insulin (HCC); Essential hypertension; Erectile dysfunction, unspecified erectile dysfunction typeStart: 01-28-2021 End: 10-35-7981Pbvqwsnrbi hospital visit by Candido Durán APRN - JADYN Work Phone: mthz LaboratoryStart: 09-13-2020 End: 71-43-2352Mhthpysizg hospital visit by Georges Ortiz [address] [place] [address] RadiologyComment on above:Right-sided chest painStart: 07-21-2020 End: 51-35-1029Gkmjyfluci hospital visit by Candido Fernandez LaboratoryComment on above:Type 2 diabetes mellitus without complication, without long-term current use of insulin (HCC); Essential hypertensionStart: 08-88-3726Cqngngtgc for general adult medical examination without abnormal findingsLutheran Hospitaltart: 05-18-2020 End: 16-46-9475Ftnjvjc encounter procedureDOUGLayton Hospitalcility:D6Bygsw: 17-86-9204Qqsixuf encounter procedureDOSan Juan Hospitality:L8Eoolyigbo for general adult medical examination without abnormal findingsUniversity [facility]als [facility] Procedures DateProcedureProcedure DetailPerforming ClinicianStart: 78-05-5819Vvolcjmappcqk metabolic panelMonica Durán ENVIRONMENTAL COMPLIANCE 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 Work Phone: Start: 33-37-4536Csafj panelMonica Durán ENVIRONMENTAL COMPLIANCE 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 Work Phone: Start: 35-26-5376Cygsu ribs unilateral 2 viewsMonica Durán Work Phone: Start: 44-97-2987Wwsey metabolic panel calcium total Monica Durán Work Phone: Start: 17-19-4733Jpqce count complete automatedMonica Durán Work Phone: Start: 19-83-3291Jbqsl panelMonica Durán Work Phone: Start: 34-83-6325Otmawhwhnha alanine amino alt sgpt Monica Durán Work Phone: Start: 59-94-0656Tgvvccnyxru aspartate amino ast sgot Monica Durán Work Phone: photorefractive keratoplastyRajat Zeng Structure of anterior cruciate ligament of knee joint (body structure)Rajat Zeng Plan of Treatment DateCare ActivityDetailAuthorStart: 78-81-1680Fahunidf foot examinationDiabetic foot examBON [facility]: 80-67-3893Jjgqsimxjc Monitoring Depression MonitoringLewisGale Hospital Pulaskiart: 59-46-9519CPQ test (Diabetes, CKD 3-4, OR last GFR 15-59)GFR test (Diabetes, CKD 3-4, OR last GFR 15-59)[facility]: 82-18-4942Bvvpjgzlcf A1c vwrfixiuzytD6Y test (Diabetic or Prediabetic)[facility]askiart: 40-01-8883Celfx panelLipidsLewisGale Hospital Pulaskiart: 03-09-2023 End: 15-74-8559Crbkxpj encounter utliujaob62/23/2023 Office Visit Primary Care Monica Durán, ENVIRONMENTAL COMPLIANCE 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 [address] [facility] [address] [id number] [facility] Primary Care Start: 20-03-2854Mrymxigo foot examinationDiabetic foot examBON [facility] Hospitalart: 74-47-2487Drpecbqbhk A1c vmxonqkkbztJ1E test (Diabetic or Prediabetic)[facility]: 50-29-1662Jabbh panelLipidsLewisGale Hospital Pulaskiart: 58-38-5268Fsdrd screening for proteinDiabetic microalbuminuria testTwin County Regional Healthcare: 58-28-1873Rmvsrrpkf vaccinationFlu vaccine (#1)[facility]: 51-16-8974Pztsgfzlfi measurementCreatinine monitoringSelect Medical Specialty [facility], [facility] [employer] Work Phone: start: 63-33-7799Unjomntwt monitoringPotassium [facility] [employer] Phone: start: 48-93-2702Qexjezrw foot examinationDiabetic foot examUniversity Hospitals Geauga Medical Center, KYStart: 45-83-4964Tfjtbozboi measurementCreatinine [facility], KYStart: 87-83-9316GuT0p (Bld) [Mass fraction]A1C test (Diabetic or Prediabetic)[facility]: 51-03-6371Hlmcfyfdzg A1c jaofgvkyrzgN6W test (Diabetic or Prediabetic)[facility] AkronInway Studios Phone: start: 50-93-8481Mcnme panelLipid [facility]: 98-40-7931Glbrbnvoz monitoringPotassium monitoringC[facility] Clinic [facility]: 48-46-4930Kwbbmvtsm vaccinationFlu vaccine (Season Ended)[facility] [employer] Phone: start: 02-04-2021 End: 92-26-5488Sirbbfv encounter wwrvbtmde89/21/2021 Office Visit Family Medicine Monica Durán, ENVIRONMENTAL COMPLIANCE 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 [address] [place] [address] [facility] Centertart: 11-15-2020 End: 63-37-0088Agyotb Visit11/15/2020 Office Visit Family Monica Camejo, ENVIRONMENTAL COMPLIANCE 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 [address] [place] [address] [facility] Start: 09-22-2020 End: 81-46-4303Gyjzrl Visit09/22/2020 Office Visit Family Monica Camejo, ENVIRONMENTAL COMPLIANCE 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 [address] [place] [address] [facility] Start: 08-20-2020 End: 39-13-2551Ffzctx Visit08/20/2020 Office Visit Family Monica Camejo, ENVIRONMENTAL COMPLIANCE 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 [address] [place] [address] [facility] Start: 61-14-4831Hhjqoozdn vaccinationFlu vaccine (#1)[facility]: 68-30-2964Aituwyso screenDiabetes [facility]: 1998 DTaP/Tdap/Td vaccine (1 - Tdap)DTaP/Tdap/Td vaccine (1 - Tdap)[facility]: 76-22-2266Tyrtzifte B vaccine (1 of 3 - Risk 3-dose series) Hepatitis B vaccine (1 of 3 - Risk 3-dose series)[facility]: 56-53-8093Bkavfykd microalbuminuria testDiabetic microalbuminuria testC[facility] Clinic [facility]: 78-99-1873Afthxvhm retinal examDiabetic retinal examBON [facility]: 39-05-2014Zmitw screening for proteinDiabetic Alb to Cr ratio (uACR) testTwin County Regional Healthcare: 17-34-4823USY screeningHIV [facility]: 62-11-9692CPSKW-19 Vaccine (1)COVID-19 Vaccine (1)[facility] Work Phone: start: 45-33-9828Duvkjlqj retinal examDiabetic retinal examC[facility] Clinic [facility]: 52-78-5766Dsnrs panelLipid [facility]: 55-96-9948Tewrxpiezxvr 0-64 years Vaccine (1 of 1 - PPSV23) Pneumococcal 0-64 years Vaccine (1 of 1 - PPSV23)[facility]: 84-76-7172Thbyxnhho vaccine (1 of 2 - 2-dose childhood series)Varicella vaccine (1 of 2 - 2-dose childhood series)[facility]: 33-07-8697BPNUN-19 Vaccine (#1)COVID-19 Vaccine (#1)[facility]: 1980 Hepatitis C screeningHepatitis C [place], [place] End: 55-12-7475AmQ6k (Bld) [Mass fraction]Hemoglobin A1C Lab Routine Type 2 diabetes mellitus without complication, without long-term currentuse of insulin (HCC) Essential hypertension 1 Occurrences starting 07/21/2020 until 07/21/2020 [place], [place]:1 Occurrences starting 07/21/2020 until 07/21/2020HbA1c (Bld) [Mass fraction]Hemoglobin A1C Lab Routine Type 2 diabetes mellitus without complication, without long-term currentuse of insulin (HCC) Essential hypertension 07/21/2020 4:29 PM [place] End: 84-10-7319Etaaxryhhx A1c/Hemoglobin.total in BloodBON [employer] Work Phone: comment on above:1 Occurrences starting 09/01/2022 until 09/01/2022 Immunizations Immunization DateImmunizationNotesCare IlbzspmvYqpdjkqj57-27-7057rwsrswhquiyu polysaccharide vaccine, 23 Adriane Durán ENVIRONMENTAL COMPLIANCE MANAGER - [facility] Work Phone: BON [employer] CorporationComment on above:Result Comment: 2023-10-26: VIS DATE: 07/16/2019 Payers DatePayer CategoryPayerPolicy [id number] [id number] 1.2.840.619356.1.13.239.2.7.3.301[id number] 2..840.1.141123.3.57[id number] 2.16.840.1.517785.3.57[id number] 2.16.840.1.442502.3.57[id number] 2.16.840.1.364131.3.57[id number] 2.16.840.1.594895.3.579.[id number] 2.16.840.1.368114.3.579.2.43629-06-7623Dohqkcu87222277 2.16.840.1.230026.3.57[id number] 2.16.840.1.966999.3.579.2.51527-68-5892Yxqjnlf48283498 2.16840.1.864903.3.57[id number] 2.16840.1.037359.3.579.[id number] 2.840.1.670099.3.579.2.01353-98-3770Atgdopj84150400 2.840.1.313640.3.579.2.21653-80-5494Nyfxjll52392459 2.840.1.394172.3.579.2.70898-47-9214Chintur92285130 2.840.1.933472.3.579.2.51451-68-3012Tqpaxvx27446961 2.840.1.665460.3.579.2.70039-22-0990Udmcigb36821882 2.840.1.480856.3.579.[id number] 2.840.1.108400.3.579.2.36683-33-0090Qvwnmln2062 2.840.1.474003.3.579.2.94980-79-2607Gyayfxf06292461 2.16840.1.594630.3.579.2.75377-41-3566Dkvntrx40380699 2.840.1.306703.3.579.2.29203-28-5891Ezjwzgo62508619 2.16.840.1.593048.3.579.2.85951-56-7842Mbqshzr00012254 2.16.840.1.004355.3.579.2.81863-15-7952Jcpmeea85254259 2.16.840.1.995189.3.579.2.04377-35-3844Wklvuhj38871059 2.16.840.1.752446.3.579.2.27437-81-7810Tyykdcz55529169 2.16.840.1.929659.3.579.2.71309-61-8808Gxbiahm67983149 2.16.840.1.558484.3.579.2.73739-95-2775Gcbaibu13125865 2.16.840.1.144520.3.579.2.40745-58-3942Nwqbpju09263457 2.16.840.1.280002.3.579.2.73069-90-6869Xahgyns91068173 2.16.840.1.313713.3.579.2.30193-08-0852Gzqhtom21073132 2.16.840.1.942784.3.579.2.19499-76-5915Rqxvhnm47432069 2.16.840.1.709361.3.579.2.87328-06-9825Nxpq-ubf97879676277-09-6398Qksorao [id number] 1.2.840.030703.1.13.239.2.7.3.451655.315 Social History DateTypeDetailFacilityStart: 07-21-2020 End: 82-07-0226Czzmmts smoking status NHISCurrent every day smokerSENTARA VIRGINIA BEACH GENERAL HOSPITALHistory of tobacco useCiUnityPoint Health-Allen Hospital: 07-21-2020 End: 90-66-0151Excnnee use and exposureNever usedUniversity Hospitals Geauga Medical Center, [place]OP[place]: 07-21-2020 End: 21-22-1285Awbdzqg SDOH Hvllkcdse4VipieUniversity Hospitals Geauga Medical Center, [place]OP[place]: 07-21-2020 End: 78-33-9087Gcsayzt SDOH Food Fbgee8CwuxyUniversity Hospitals Geauga Medical Center, LAYOart: 07-21-2020 History SDOH Transport Vwh7GtgkdUniversity Hospitals Geauga Medical Center, KYSex Assigned At BirthNot on file [facility], [place]OP[place]: 47-36-1416Frocfmkpdk smoked current (pack per day) - ReportedSelect Medical Specialty Hospital [facility], Inc [employer] Work Phone: start: 36-21-4223Tzr Assigned At [facility] CarePlex HospitalTobacco2 packs a day Tobacco Use:.[facility] Tobacco smoking statusNo Smoking Status EnteredDayton Osteopathic Hospital Sex Assigned At [facility] Start: 38-63-0218Tresilo smoking statusHeavy tobacco smoker (finding)[facility] Medical Centerobacco smoking statusNeverWright-Patterson Medical Centertart: 02-19-2024 End: 43-01-6263[employer] smoking statusEx-smoker (finding)[facility] [place] [facility] Procedure CodeEquipment CodeEquipment Original TextEquipment IdentifierDates Dispense sufficient amount for indicated testing frequency plus additional to accommodate PRN testing needs. Dispense all needed supplies to include: monitor, strips, lancing device, lancets, controlsolutions, alcohol swabs.[id number] Start: 09-02-2022 Functional Status UffrIekabfetnzZqtyquIzwldnwq05-30-7709Lolsddwofb StatusN/[facility]02-09-2024Functional StatusN/[facility] Clinical Notes 09-13-2022 to 04-07-2025 Note Date & PezgWhwbYecdmkrg27-33-5476 NotePatient Education Endocrinology Blood Glucose Monitoring, Adult [...] Where to find more information ??? The [place] Diabetes Association: diabetes.org ??? The Association of [...] levels in y (more content not included)... [facility]11-29-2024 NotePatient Education Cardiovascular Managing Your Hypertension Hypertension, [...] changes are not enough (more content not included)...[facility]10-24-2024 Note Patient Education Endocrinology Diabetes Mellitus and [...] Carrots. Green beans. Tomatoes. Peppers. Onions. Cucumbers. [place] sprouts. Grains Whole grains, such as whole-wheat or whole- (more content not included)...[facility]07-02-2024 NotePatient Education Emergency Medicine Heart Attack A heart attack occurs when blood and oxygen supply to the heart is cut off. A heart attack can cause damage to the heart that cannot be fixed. A heart attack is also called a myocardial infarction, or UT. If you think you are having a [...] these instructions at home: Medicines ? Take nfay-vwk-nimwsae and prescription medicines only as told by [...] skipping beats. ? You (more content not included)...[facility]02-09-2024 Hospital Discharge instructions Patient Education 10/26/2023 10:57:52 [...] ?Hypothyroidism. ?Polycystic ovarian syndrome (PCOS). ?Binge-eating disorder. ?[place] syndrome. Taking certain medicines, such as steroids, [...] food choices, such as grocery stores and [employer] markets. What are the signs or symptoms? [...] and how much exercise you get. Take clke-equ-lsnmzfs and prescription medicines only as told by [...] provider. Document Revised: 04/11/2022 Document Reviewed: 04/11/2022 [employer] Patient Education 2022 ALTILIA. [facility] Surgery [place] 12-28-2022 History of Present illness Narrative* Garcia Dixon PT - 09/13/2022 6:15 PM EST [facility] Physical Therapy Orthotic Fitting Plan of Care Date: 09/13/2022 Patient Name: Sultana Joshua : 1980 (41 y.o.) CSN #: [id number] Referring Physician: Monica Durán APRN * Diagnosis: [...] Signature: Date: 09/13/2022 documented in this encounterBON [facility] Organizer Phone: evaluation + Plan note Future Appointments Appointment Date:11/02/2023 08:40:00 AM Scheduled Provider:Rajat Zeng MD Location:[facility] Appointment Type:[facility] Evaluation + Plan note Future Appointments Appointment Date:11/30/2023 08:40:00 AM Scheduled Provider:Rajat Zeng MD Location:[facility] Appointment Type:[facility] Evaluation + Plan note Future Appointments Appointment Date:03/18/2024 07:20:00 AM Scheduled Provider:PASQUALE STERN CNP Location:[facility] Appointment Type:FM Open Future Scheduled Tests Laboratory* HgbA1c [facility] Future Appointments Appointment Date:08/15/2024 08:00:00 AM Scheduled Provider:PASQUALE STERN CNP Location:[facility] Appointment Type:FM Open Future Scheduled Tests Laboratory* HgbA1c 12/07/23 [facility] Evaluation + Plan note Future Appointments Appointment Date:01/13/2025 07:20:00 AM Scheduled Provider:PASQUALE STERN CNP Location:[facility] Appointment Type:FM Open Future Scheduled Tests Laboratory* HgbA1c 12/07/23 [facility] evaluation note* Diagnosis Other hyperlipidemia Type 2 diabetes mellitus without complication, without long-term current use of insulin (HCC) Essential hypertension Unspecified essential hypertension Erectile dysfunction, unspecified erectile dysfunction type documented in this encounter [facility] Work Phone: Hospital course Narrative No data available for this section [facility] Hospital Discharge instructions No data available for this section [facility] Progress note No data available for this section [facility] Assessments Diagnosis Type 2 diabetes mellitus without complication, without long-term current use of insulin (HCC) Essential hypertension Unspecified essential hypertension Diagnosis Right-sided chest pain Advance Directives No Advanced Directives Records FoundDocuments on File TypeDate RecordedPatient RepresentativeExplanationACP-Advance DirectiveACP-Power of Driver License Technician Summary Purpose Family History No Family History [...] section and content) DATE CREATED AUTHOR 07/27/2020 [facility] DATE CREATED AUTHOR AUTHOR'S ORGANIZ ATION 06/25/2023 [facility] DATE CREATED AUTHOR AUTHOR'S ORGANIZ ATION 02/23/2024 [facility] DATE CREATED AUTHOR AUTHOR'S ORGANIZ ATION 03/19/2024 [facility] DATE CREATED AUTHOR AUTHOR'S ORGANIZ ATION 08/17/2024 [facility] DATE CREATED AUTHOR AUTHOR'S ORGANIZ ATION 10/16/2024 [facility] DATE CREATED AUTHOR AUTHOR'S ORGANIZ ATION 01/15/2025 [facility] DATE CREATED AUTHOR AUTHOR'S ORGANIZ ATION 04/09/2025 [facility] DATE CREATED AUTHOR AUTHOR'S ORGANIZ ATION 07/23/2025 [facility] Care Teams (unrecognized sec tion and content) Team MemberRelationshipSpecialtyStart DateEnd Date Monica Durán, ENVIRONMENTAL COMPLIANCE 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 [address] [facility] [address] [place] [address] PCP - GeneralFamily Nurse Ykvekkmpwkgx87/4/20Team MemberRelationshipSpecialty Start DateEnd Date Monica Durán, ENVIRONMENTAL COMPLIANCE 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 [address] [facility] [facility] [address] [place] [address] PCP - GeneralFamily Nurse Dukjhykjqpni83/4/20 FOR RECORDS PERTAINING TO PATIENTS WHO ARE [...] BE BASED ON THE PRIMARY CLINICAL RECORDS. [facility] [employer] provides no warranty or guarantee of the accuracy or completeness of information in this document.
[2025-08-24 12:35] LABS: Estimated GFR (African America >60 (>=60 mL/min/1.73m^2); Estimated GFR (Non-African Ame >60 (>=60 mL/min/1.73m^2)
== END 2025-08-24 11:12 | disposition home or self-care (01) ==
LOC: LAB 11:11
PROVIDERS: PCP Nurse Practitioner Family; Visit Provider Internal Medicine Infectious Disease
DX: A49.8 Other bacterial infections of unspecified site (principal)
CPT/HCPCS: 36415; 82565; 86140

== ENCOUNTER 2025-08-25 12:07 | Outpatient (OUT) | payer BC, SELFPAY ==
--- OUTSIDE RECORDS SUMMARY | 2025-08-24 09:34 | XMS_ITS | Continuity of Care Document ---
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 Role Phone Lukas Lawrence MD Attending Provider Angelina Urbano [facility] Primary Care Provider + Tristin Henriquez MD Admit Provider Stephanie Stout RN Other Provider Unavailable Jaylin Bangura DO Other Provider Alexandria Michael MD Other Provider Tacho Camacho MD Other Provider [phone] Marilyn Zhao APRN Other Provider [phone] Terra Arroyo MD Other Provider Kiana Hernandez [facility] Other Provider Germain Bojorquez DO Other Provider Dedrick Hollis MD Attending Provider Dedrick Hollis MD Other Provider Jose Eduardo Irving DO Attending Provider [phone] Jose Eduardo Irving DO Other Provider Care Teams Patient Care Team Team Status: Active Member Role/Relationship Status Dates Angelina Urbano [facility] Primary Care Provider Active Visit Care Team [...] Active Member Role/Relationship Status Dates Angelina Urbano [facility] Primary Care Provider Active Start: August 05, 2025 Tristin Henriquez , MDAdmit ProviderActiveStart: August 05, 2025 Stephanie Stout RNOther ProviderActiveStart: August 05, 2025 Stephanie Stout RNOther ProviderActiveStart: August 05, 2025 Jaylin Bangura DOOther ProviderActiveStart: August 05, 2025 Alexandria Michael MDOther ProviderActiveStart: August 05, 2025 Tacho Camacho MDOther ProviderActiveStart: August 05, 2025 Marilyn Zhao APRNOther ProviderActiveStart: August 05, 2025 Terra Arroyo MDOther ProviderActiveStart: August 05, 2025 Kiana Hernandez [facility] ProviderActiveStart: August 05, 2025 Germain Bojorquez DOOther ProviderActiveStart: August 05, 2025 Carlos Davisending ProviderActiveStart: August 05, 2025 Visit Care Team Team Status: Active Member Role/Relationship Status Dates Angelina Urbano [facility] Primary Care Provider Active Start: August 06, 2025 Tristin Henriquez , MDAdmit ProviderActiveStart: August 06, 2025 Stephanie Stout RNOther ProviderActiveStart: August 06, 2025 Stephanie Stout RNOther ProviderActiveStart: August 06, 2025 Jaylin Bangura DOOther ProviderActiveStart: August 06, 2025 Alexandria Michael MDOther ProviderActiveStart: August 06, 2025 Tacho Camacho MDOther ProviderActiveStart: August 06, 2025 Roseanne Salinas ProviderActiveStart: August 06, 2025 Terra Arroyo MDOther ProviderActiveStart: August 06, 2025 Kiana Hernandez [facility] ProviderActiveStart: August 06, 2025 Cayla Welch ProviderActiveStart: August 06, 2025 Jessie Davis ProviderActiveStart: August 06, 2025 Moni Samayoa ProviderActiveStart: August 06, 2025 Cayla Samayoa ProviderActiveStart: August 06, 2025 Patient Care Team Team Status: Inactive Member Role/Relationship Status Dates Angelina Urbano [facility] Primary Care Provider Active Start: August 24, 2025 End: August 24, 2025MicRadha Garner ProviderActiveStart: August 24, 2025 End: August 24, 2025 Chief Complaint and Reason for Visit Chief Complaint Admit Date NSTEMI August 05, 2025 12:58am NSTEMI August 06, 2025 12:58am post hosp [facility] August 24, 2025 2 :10pm Reason for Visit Admit Date Anxiety August 05, 2025 12:58am Depression August 05, 2025 12:58am Former cigarette smoker August 05, 2 025 12:58am GERD (gastroesophageal reflux disease) N ovember 2024 12:58am HLD (hyperlipidemia) August 05, 2025 12:58am HTN (hypertension) August 05, 2025 12:58am Lumbar back pain August 05, 2025 12:58am [facility] 12:58am Type 2 diabetes mellitus August 05, 2025 12:58am Vapes nicotine containing substance Nove [facility] 2024 12:58am NSTEMI (non-ST elevated myocardial infar ction) August 05, 2025 12:58am Epidural abscess August 05, 2025 12:58am Reason for Referral Type Reason(s) Provider Provider Contact Information Mihai magana Address Start Date Non-ST elevation myocardial infarction (NSTEMI) Lumbar back pain referral for CABGOur scheduling department will contact you with appointment information to have the MRI's completed. If you have any questions regarding these please call [phone].[facility] , MedWork Phone: [phone] [facility] [address] Toya Bailey: [email or web address] Work Phone: [phone] [facility] [address] [facility] [address]Hwfrnqumaría Hollis MDWork Phone: [phone] [address] [facility] [address]Cxm have been scheduled for a follow up appointment for the following date and time, please call to reschedule if needed.ANTHONY Yung-BCWork Phone: [phone] [address] [facility] [address]amtqujgl for CABGMohamed Laz Sorto MDWork Phone: [phone] [address] [facility] [address] [facility] [address] Allergies, Adverse Reactions, Alerts Allergen Type Severity Reaction Last Updated Verified Status No Known Allergies Allergy Unknown August 24, 2025 2:11pmYesActive Social History Smoking Status Status Start Date End Date Date of Observa tion Ex-smoker (finding) August 06, 2025 3:19pm Observation Status Observation Response Date of Response Legal Sex Male (finding) [facility] 1980 Social History Assessments Assessment Value Date [...] containing substance August 05 1:35am Unknown Active Type 2 diabetes mellitus August 05, 2025 1:33am Un known Active Anxiety August 05, 2025 1:34am Unknown A ctive Depression August 05, 2025 1:34am Unknown A ctive HLD (hyperlipidemia) August 05, 2025 1:34am Unknow n Active Former cigarette smoker August 05, 2025 1:35am Unk nown Active Lumbar back pain August 05, 2025 2:38am Unknown Active GERD (gastroesophageal reflux disease) August 05, 2025 1:35am Unknown Active HTN (hypertension) August 05, 2025 1:34am Unknown Active Inactive/Resolved Problems Problem Diagnosis/Recorded Date Onset Date Stat NSTEMI (non-ST elevated myoc ardial infarction) August 05, 2025 2:38am Unknown Resolved Medications Medication Status Dose Units Route Directions Qty Days Refills S tart Date Stop Date End Date Reason(s) Instructions Adherence Cyclobenzaprine 10 mg tablet Discontinued 10 MG PO Bedtime as needed for muscle spasm August 05, 2025 12:00am[facility] 2024 10:18amIbuprofen 800 mg tablet Ixwavj225MFEDA4Y as needed for painAugust 05, 2025 12:00amComplies with drug therapyEnalapril Maleate 20 mg ormctiAgjxzrzqkzqn82TONQLiudrjdDmsssduj 19th, 2025 12:00[facility] 2024 10:18amPioglitazone 45 mg odtrchCjfxnetunljs96AW PODailyNove2024 12:00amDecesout[facility] 2024 2:12pmCitalopram 20 mg udptcxXsdfoumqufpd69SDVLZgmxaPokzvttn 19th, 2025 12:00[facility] 2024 10:18amMethocarbamol 750 mg ezbsdsTsyvxg026VIAHItgqn 6 hours as needed for muscle spasmAugust 05, 2025 12:00amComplies with drug therapyMetformin 1,000 mg yvhtemYtqjai4084SBVXXixrc breakfast and supperAugust 05, 2025 12:00am Complies with drug therapyDulaglutide (Trulicity) 0.75 mg/0.5 mL pen injector Active0.75MGSUBCUTevery weekAugust 05, 2025 12:00amSundaysComplies with drug therapyAmlodipine 10 mg cmtaxsHkiwub05WOCBOwvfeLrlwthic 19th, 2025 12:00am Complies with drug therapyEnalapril Maleate 10 mg xrpaxhQqwjjdzcbtsv72ATZWOwekx August 05, 2025 12:00[facility] 2024 10:18amOmeprazole 20 mg capsule,delayed release(DR/EC)Rypeit53KFJCSvwxw at 0630August 05, 2025 12:00amComplies with drug therapySimvastatin 40 mg ieatuyFrgaskgdnalo75ZWCNJjhkv at bedtimeAugust 05, 2025 12:00amNovember 2024 10:18amAtorvastatin 40 mg QcrggcPcbmaf37BSTTLtwhd xjuxrkc99654Scderxif 21st, 2025 12:00amComplies with drug therapyValsartan 80 mg SdioamSvquak712UTZHGgmrk46930Nbsyodyk 21st, 2025 12:00amComplies with drug therapyAspirin 81 mg Tablet,Delayed Release (Dr/Ec) Mclkoq74ICUUXzzlc35513Deyasnbi 21st, 2025 12:00amComplies with drug therapy Nitroglycerin 0.4 mg Tablet, SublingualActive0.3EFIFDVBLFOYZK0B as needed for Chest Ilrk15955XfetmvbcAugust 07, 2025 12:00amComplies with drug therapyMetoprolol Tartrate 25 mg YdviwxEqgojj59KDMBDlsrh qogve640644Vvatpddu 21st, 2025 12:00am Complies with drug therapyCefazolin 2 gram Recon RiaxLzgwga9BQMAP0C27080Svtdjqgp 23rd, 2025 12:00amComplies with drug therapyCitalopram 20 mg WigicbAvbtfy26NDYR Incgm029CzzzgqldAugust 10, 2025 12:00amFurther refills, or dose change, are to come from the PCP.Complies with drug therapyInsulin Aspart U-100 100 unit/mL (3 mL) Insulin YjwZnzqqo4OAWSXQLNRP6e/Day before imsve919DlwzvmqlAugust 10, 2025 12:00am Follow carbohydrate counting scale. Therapeutic interchange is OK. Further refills, or dose change, are to come from the PCP.Complies with drug therapyInsulin Glargine (Lantus Solostar U-100 Insulin) 100 unit/mL (3 mL) Insulin BwuMfqong37SZYGVLMNRLKfkkp at kjltlew414VtkgexfdAugust 10, 2025 12:00amMay increase this by 5 units per day as needed for blood glucose control. Further refills, or dose change, are to come from the PCP.Complies with drug therapyLancets emmhCrjcuf9531Cfjzifvb 24th, 2025 12:00amType 2 diabetes mellitus Type 2 diabetes mellitus without complicationsAs DirectedPen Needle, Diabetic (Ulticare Pen Needle) 31 gauge x 3/16 AetqkoGymvoj5180Tfajfxjc 24th, 2025 12:00amType 2 diabetes mellitus Type 2 diabetes mellitus without complicationsAs DirectedNicotine 14 mg/24 hr patch 24 gscrOrwmhp0MSRPSFRYVJKGXGWRlikh141Fwnlguot 24th, 2025 12:00amComplies with drug therapyCefadroxil 500 mg nqstokoPoqikh482KVEANkngg nrjyl63426Bzlueaav 8th, 2025 12:00amComplies with drug therapy Procedures Procedure Date Performed Status Blood Culture August 03, 2025 completed Blood Culture August 03, 2025 completed Relevant Diagnostic Tests and/or Laboratory Data Microbiology Results Procedure Source Result Collection Date/Time Result Date/Time Result Comment Performing Site Blood Culture Blood, Right Forearm Staphylococcus aureus August 03, 2025 11:10pm August 08, 2025 8:15am [facility] [id number] [address] [place] [address]Ygaik CultureBlood, Right HandStaphylococcus aureusAugust 03, 2025 11:20pmAugust 08, 2025 8:18am[facility] [id number] [address] [place] [address] Vital Signs Vital Reading Result Reference Range Collection Date/Time Height 73 [in_i] August 06, 2025 4:19kuQgjtal354.10 kgAugust 10, 2025 6:00amBody Oeplzmtheja79.2 [degF]97.6-99.0August 10, 2025 8:07amHeart Rate81 /pow53-993 August 10, 2025 8:07amRespiratory rate18 /stb10-01XtpevjxwAugust 10, 2025 8:07am Oxygen saturation by Pulse ejzcozsl00 %95-100August 10, 2025 8:07amBP Arrmiair679 mm[Hg]100-140August 10, 2025 8:07amBP Bxacdgmph15 mm[Hg]60-100 August 10, 2025 8:07amInhaled oxygen flow rate2 L/minAugust 07, 2025 8:79xdJhoqtk74 [in_i]August 24, 2025 2:16sxVxydtk352.93 kgDece2024 2:14pmBody Dzfsaeduubm33.5 [degF]97.6-99.0Decemb2024 2:14pmHeart Rate89 /lpw31-356IiqlqknuAugust 24, 2025 2:14pmBP Elubyzgo176 mm[Hg]100-140August 24, 2025 2:14pmBP Hnkyeorxi70 mm[Hg]60-100December 2024 2:14pmBMI (Body Mass Index)34.2 kg/k8Jdlxetig2024 2:14pm Advance Directives Advance Directive Response Recorded Date/ Time Advance Directives No July 11:16pm Insurance Providers Guarantor Sita Kelly Address [address] [address] Info.Home Phone: Coverage Status Update:2025 Payer Group Member ID Coverage Type Subscriber Relationship to Subscriber Effective Date Expiration Date Mayelin BAUER/MEHRDAD Id: [id number] Stickles , M Id: [id number] [address] [address] Home Phone: Email: [email or web address] [email or web address] Encounter Location(s) Arrival/Admit Date Discharge/Departure Date Discharge/Departure Disposition Provider(s) Departed Referred -[facility] August 03, 2025 11:10pm August 03, 2025 11:11pm Discharged to home care or self care (routine discharge) Lukas Lawrence MD Departed Referred -[facility] August 03, 2025 11:20pm August 03, 2025 11:21pm Discharged to home care or self care (routine discharge) Lukas Lawrence MD Non-patient / Non-visit -[facility] Dis August 05, 2025 12:58am Dedrick Hollis MDNon-patient / [facility] Neurosurgery August 06, 2025 12:58amEric WES Starkeyeparted Physician/Provider Office [facility] DisDece2024 2:10pmDecesout[facility] 2024 2:33pmDischarged to home care or self care (routine discharge)Dedrick Hollis MD Recent Diagnosis Onset Date Admit Date Anxiety Unknown August 05 12:58am Depression Unknown August 05 12:58am Former cigarette smoker Unknown August 05, 2025 12:58am GERD (gastroesophageal reflux disease) Unknown August 05, 2025 12:58am HLD (hyperlipidemia) Unknown August 052024 12:58am HTN (hypertension) Unknown July 12:58am Lumbar back pain Unknown August 05, 2025 12:58am Staphylococcus aureus bacteremia Unknown August 05, 2025 12:58am Type 2 diabetes mellitus Unknown Novembe r 2024 12:58am Vapes nicotine containing substance Unknown August 05, 2025 12:58am NSTEMI (non-ST elevated myocardial infarction) U nknown August 05, 2025 12:58am Epidural abscess Unknown August 05, 2025 12:58am Assessments Diagnosis Onset Date Resolution Status Admit Date Anxiety acuteJulember 2024 12:58amDepressionacuteNovember 2024 12:58amFormer cigarette smokeracuteJulember 2024 12:58amGERD (gastroesophageal reflux disease)acuteNov2024 12:58amHLD (hyperlipidemia)acuteNov2024 12:58amHTN (hypertension)acuteNovember 2024 12:58amLumbar back pain acuteNovember 2024 12:58amStaphylococcus aureus bacteremiaacuteNovember 2024 12:58amType 2 diabetes mellitusacuteNovember 2024 12:58amVapes nicotine containing substanceacuteNovember 2024 12:58amNSTEMI (non-ST elevated myocardial infarction)inactiveAugust 05, 2025 12:58amEpidural abscessdeletedAugust 05, 2025 12:58am Plan of Treatment Future Tests Future scheduled test information is unavailable Pending Tests Test Name Ordered Date Scheduled Date MR lumbar spine wo/w con August 09, 2025 9:4 8am 10 Days Future Visits Future appointment information is unavailable Future Procedures Procedure Name Ordered Date Scheduled Date MR thoracic spine wo/w con August 09, 2025 9 :50am 10 Days Initiate Home Health August 10, 2025 10:49am [facility]am[facility] 2024 9:36am Admit Status [facility] 2024 2:53amNoveer 2024 2:53amCardiology PRN [facility] 2024 2:53amNoveer 2024 2:53amDischarge Order August 10, 2025 10:18amN[facility]out[facility] 2024 10:18am[facility] 3:07pmConsult to [facility]surgery[facility] 2024 9:11amNovesout[facility] 2024 9:11am Future Medications Future medication information is unavailable Patient Instructions Instruction Admit Date Know your Meds August 05, 2025 12:58am
--- NOTE | 2025-08-25 | MR_ITS ---
The [address] [address] Patient Name: SULTANA JASSO MRN: [id number] date: 1980 Sex: M Assigned Patient Location: MRI Current Patient Location: MRI Accession/Order Number: [id number] Exam Date: 08/25/2025 12:35 Report Date: 08/25/2025 16:25 At the request of: YOLANDA LANGSTON Procedure: MR lumbar spine wo/w con MR lumbar spine wo/w con 08/25/2025 2:21 PM SIGNS AND SYMPTOMS: ^Bacteremia thoracic and lumbar pain PROTOCOL: Multiplanar multisequence MR images of the lumbar spine with and without IV contrast CONTRAST: 20 mL of intravenous Dotarem COMPARISON: 08/04/2025 FINDINGS: The bones of the lumbar spine are in anatomic alignment. There is preservation of vertebral body heights. There is disc desiccation and mild disc height loss at T12-L1 and L5-S1. The marrow signal is within normal limits. No abnormal postcontrast enhancement. The conus terminates at the superior endplate of the L2 vertebral body level. No epidural or paraspinous fluid collection is appreciated. At T12-L1: There is a broad-based disc bulge with minimal spinal canal narrowing. No neural foraminal narrowing. At L1-L2: There is a normal disc, central canal, and neural foramen. At L2-L3: There is a normal disc, central canal, and neural foramen. At L3-L4: There is a normal disc, central canal, and neural foramen. At L4-L5: There is a right foraminal disc protrusion contributing to mild right neural foraminal narrowing. No significant spinal canal narrowing. At L5-S1: There is a broad-based disc bulge contributing to mild right neural foraminal narrowing with minimal spinal canal narrowing. MR/MR lumbar spine wo/w con IMPRESSION: At L4-L5: There is a right foraminal disc protrusion contributing to mild right neural foraminal narrowing. No significant spinal canal narrowing. At L5-S1: There is a broad-based disc bulge contributing to mild right neural foraminal narrowing with minimal spinal canal narrowing. No evidence of discitis or osteomyelitis. No paraspinous or epidural fluid collection or abnormal postcontrast enhancement. Impression dictated by: Quinten Jones M.D. 08/25/2025 4:25 PM Dictation Location: [place] [address] Electronically authenticated by: [id number] Y Date: 08/25/2025 16:25
--- NOTE | 2025-08-25 | MR_ITS ---
[address] [address] Patient Name: SULTANA JASSO MRN: [id number] date: 1980 Sex: M Assigned Patient Location: MRI Current Patient Location: MRI Accession/Order Number: [id number] Exam Date: 08/25/2025 12:35 Report Date: 08/25/2025 16:32 At the request of: YOLANDA LANGSTON Procedure: MR thoracic spine wo/w con MR thoracic spine wo/w con 08/25/2025 2:21 PM SIGNS AND SYMPTOMS: Bacteremia pain PROTOCOL: Multiplanar multisequence MR images of the thoracic spine with and without IV contrast CONTRAST: 20 mL of intravenous Dotarem COMPARISON: 08/04/2025 FINDINGS: A marker is present posteriorly at the level of the T7 vertebral body. The bones of the thoracic spine are in anatomic alignment. There is preservation of vertebral body heights. There is mild disc height loss at T10-T11 with endplate edema predominantly to the right of midline. There is a small enhancing paraspinous fluid collection with surrounding edema. This measures 2.5 x 2.1 x 0.9 cm in greatest dimension to the right of midline along the lateral margin of the disc space. No epidural fluid collection. The visualized paraspinous soft tissues are within normal limits. At T1-T2: There is a normal disc, central canal, and neural foramen. At T2-T3: There is a normal disc, central canal, and neural foramen. At T3-T4: There is a normal disc, central canal, and neural foramen. At T4-T5: There is a normal disc, central canal, and neural foramen. At T5-T6: There is a normal disc, central canal, and neural foramen. At T6-T7: There is a normal disc, central canal, and neural foramen. At T7-T8: There is a normal disc, central canal, and neural foramen. At T8-T9: There is a normal disc, central canal, and neural foramen. At T9-T10: There is a normal disc, central canal, and neural foramen. At T10-T11: There is a normal disc, central canal, and neural foramen. At T11-T12: There is a right central disc protrusion with mild spinal canal narrowing. No neural foraminal stenosis. At T12-L1: There is a normal disc, central canal, and neural foramen. 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 No epidural collection or abnormal enhancement. Mild degenerative changes are noted at T11-T12. Impression dictated by: Quinten Jones M.D. 08/25/2025 4:32 PM Dictation Location: [place] [address] Electronically authenticated by: [id number] Y Date: 08/25/2025 16:32
--- OUTSIDE RECORDS SUMMARY | 2025-08-25 12:11 | XMS_ITS | CCD ---
Author Organization [facility] Care Team Providers Care Integration Solution Architect Name Role Phone Monica Durán Primary Care Provider HOY, NICOLETTE Admitting Unavailable HOY, NICOLETTE Attending Unavailable HOY, NICOLETTE Consulting Unavailable HOY, NICOLETTE Attending Unavailable HOY, NICOLETTE Admitting Unavailable Luis Armando INSTRUMENT REPAIR TECHNICIAN - TRANSFER TABLE OPERATOR HELPERMonica Primary Care Provide r Luis Armando INSTRUMENT REPAIR TECHNICIAN - TRANSFER TABLE OPERATOR HELPERMonica Primary Care Provide r MONICA DURÁN Referring [...] Unavailable LEENA, PASQUALE A Attending Unavailable Lana, WATER SOFTENER SERVICER Emily L Attending Unavailable Lana, WATER SOFTENER SERVICER Emily L Admitting Unavailable Lana, Emily L [...] [No Known Medication Allergies]Propensity to adverse reactions (disorder)[facility] Repository Medications Current Medications MedicationDrug Class(es)DatesSig (Normalized)Sig (Original)amLODIPine 10 mg oral tablet (11 sources)Dihydropyridine Calcium Channel BlockerStart: 44-22-4544djxk 1 tablet by mouth once dailyamLODIPine 10 mg Tab See Instructions, TAKE ONE TABLET BY MOUTH ONCE DAILY, # 90 tab(s), Refills(s)1, Pharmacy: [facility] 185, cm, 10/14/24 7:46:00 EST, Height/Length Dosing, 121.3, kg, 10/14/24 7:46:00 EST, Weight Dosing Start Date: 10/14/24 Status: OrderedStart: 06-18-2024 take 1 tablet by mouth once dailyamLODIPine 10 mg Tab 10 mg = 1 tab(s), Oral, Daily, # 90 tab(s), Refills(s) 1, Pharmacy: [facility] 185, cm, 05/15/24 7:36:00 EDT, Height/Length Dosing, 121.8, kg, 05/15/24 7:36:00 EDT, Weight Dosing Start Date: 06/18/24 Status: OrderedStart: 01-76-5396qyww 1 tablet by mouth once dailyamLODIPine 10 mg Tab 10 mg = 1 tab(s), Oral, Daily, # 90 tab(s), Refills(s) 0 Start Date: 10/26/23 Status: OrderedStart: 35-30-9489cika 1 tablet by mouth once dailyamLODIPine (NORVASC) 10 MG tablet Take 1 tablet by mouth daily 90 tablet 3 09/01/2022 ActiveStart: 13-77-3356etbh 1 tablet by mouth once dailyamLODIPine (NORVASC) 10 MG tablet Take 1 tablet by mouth daily 90 tablet 2 01/28/2021 ActiveStart: 73-58-5357yhdw 1 tablet by mouth once daily amLODIPine (NORVASC) 5 MG tablet Take 1 tablet by mouth daily 30 tablet 3 08/17/2020 Activeamoxicillin 500 mg oral capsule (1 source)Penicillin-class AntibacterialStart: 73-35-1661pmva 1 capsule by mouth every twelve hoursamoxicillin 500 mg Cap 500 mg = 1 cap(s), Oral, q12hr, # 20 cap(s), Refills(s) 0, Pharmacy: [facility], 185, cm, 10/14/24 7:46:00 EST, Height/Length [...] mg oral capsule (2 sources)Nonsteroidal Anti-inflammatory DrugStart: 40-78-1310cghz 1 capsule by mouth twice dailycelecoxib (CELEBREX) 100 MG capsule Take 1 capsule by mouth 2 times daily 30 capsule 1 09/13/2020 Activecephalexin 500 mg oral capsule (4 sources)Cephalosporin AntibacterialStart: 03-61-9623hmmwakwbpn 500 mg Cap Refills(s) 0 Start Date: 10/26/23 Status: OrderedStart: 09-01-2022 End: 67-09-6469jtbf 1 capsule by mouth four times dailycephALEXin (KEFLEX) 500 MG capsule Take 1 capsule by mouth 4 times daily for 7 days 28 capsule 0 09/08/2022 Activecholecalciferol 0.125 mg oral tablet (2 sources)Vitamin DCholecalciferol (VITAMIN D3) 125 MCG (5000 UT) TABS Take by mouth 0 Activecitalopram 20 mg oral tablet (12 sources)Serotonin Reuptake InhibitorStart: 21-07-9014rwfw 10 mg by mouth once dailycitalopram 20 mg Tab 10 mg = 0.5 tab(s), Oral, Daily, # 30 tab(s), Refills(s) 0, Pharmacy: [facility] 185, cm, 04/09/24 7:36:00 EDT, Height/Length Dosing, 118.4, kg, 04/09/24 7:36:00 EDT, Weight Dosing Start Date: 04/30/24 Status: OrderedStart: 27-35-7747nxip 10 mg by mouth once dailycitalopram 20 mg Tab 10 mg = 0.5 tab(s), Oral, Daily, # 45 tab(s), Refills(s) 0 Start Date: 10/26/23 Status: OrderedStart: 93-98-9631tmux 0.5 tablet by mouth once daily citalopram (CELEXA) 20 MG tablet TAKE ONE-HALF (1/2) TABLET BY MOUTH DAILY 30 tablet 0 09/02/2022 ActiveStart: 97-47-2483jwcz 0.5 tablet by mouth once daily citalopram (CELEXA) 20 MG tablet TAKE 1/2 TABLET BY MOUTH ONE TIME DAILY 45 tablet 1 10/20/2020 Activetake 1 tablet by mouth once dailycitalopram (CELEXA) 20 MG tablet Take 20 mg by mouth daily 0 Activeenalapril maleate 20 mg oral tablet (10 sources)Angiotensin Converting Enzyme InhibitorStart: 75-31-7868ynmt 1 tablet by mouth once dailyenalapril 20 mg Tab 20 mg = 1 tab(s), Oral, Daily, # 90 tab(s), Refills(s) 1, Pharmacy: [facility] 185, cm, 10/14/24 7:46:00 EST, Height/Length Dosing, 121.3, kg, 10/14/24 7:46:00 EST,Weight Dosing Start Date: 10/14/24 Status: OrderedStart: 61-25-7521erru 1 tablet by mouth once dailyenalapril 10 mg Tab 10 mg = 1 tab(s), Oral, Daily, # 30 tab(s), Refills(s) 0, Pharmacy: [facility], 185, cm, 07/10/24 7:24:00 EDT, Height/Length Dosing, 119.9, kg, 07/10/24 7:24:00 EDT, Weight Dosing Start Date: 07/10/24 Status: OrderedStart: 97-10-8438mibh 1 tablet by mouth once daily enalapril 20 mg Tab 20 mg = 1 tab(s), Oral, Daily, # 90 tab(s), Refills(s) 1, Pharmacy: [facility] 185, cm, 05/15/24 7:36:00 EDT, Height/Length Dosing, 121.8, kg, 05/15/24 7:36:00 EDT,Weight Dosing Start Date: 06/18/24 Status: OrderedStart: 82-84-0129ahbj 1 tablet by mouth once dailyenalapril 5 mg Tab 5 mg = 1 tab(s), Oral, Daily, # 30 tab(s), Refills(s) 0, Pharmacy: [facility], 185, cm, 02/19/24 7:35:00 EDT, Height/Length Dosing, 119.7, kg, 02/19/24 7:35:00 EDT,Weight Dosing Start Date: 02/19/24 Status: OrderedStart: 13-61-4927fzse 1 tablet by mouth once dailyenalapril 2.5 mg Tab 2.5 mg = 1 tab(s), Oral, Daily, # 90 tab(s), Refills(s) 0 Start Date: 10/26/23 Status: OrderedStart: 26-92-7913lxja 1 tablet by mouth once dailyenalapril (VASOTEC) 2.5 MG tablet Take 1 tablet by mouth daily 90 tablet 3 09/01/2022 Activefluconazole 100 mg oral tablet (1 source)Azole AntifungalStart: 02-19-2024 End: 39-78-1104aosd 1 tablet by mouth once dailyfluconazole 100 mg Tab 100 mg = 1 tab(s), Oral, Daily, X 7 day(s), # 7 tab(s), Refills(s) 0, Pharmacy: [facility], 185, cm, 02/19/24 7:35:00 EDT, Height/Length [...] hr extended release oral tablet (2 sources)SulfonylureaStart: 91-21-2045gwet 1 tablet by mouth once daily glipiZIDE 10 mg ER Tab 10 mg = 1 tab(s), Oral, Daily, # 90 tab(s), Refills(s) 1, Pharmacy: [facility] 185, cm, 10/14/24 7:46:00 EST, Height/Length Dosing, 121.3, kg, 10/14/24 7:46:00 EST, Weight Dosing Start Date: 10/14/24 Status: OrderedStart: 31-65-4155hlcm 1 tablet by mouth once dailyglipiZIDE 5 mg ER Tab 5 mg = 1 tab(s), Oral, Daily, # 90 tab(s), Refills(s) 1, Pharmacy: [facility] 185, cm, 05/15/24 7:36:00 EDT, Height/Length Dosing, 121.8, kg, 05/15/24 7:36:00 EDT, Weight Dosing Start Date: 06/18/24 Status: OrderedlamoTRIgine 100 mg oral tablet (3 sources)Mood Stabilizer, Anti-epileptic Agenttake 1 tablet by mouth once dailylamoTRIgine (LAMICTAL) 100 MG tablet Take 100 mg by mouth daily 0 Active metFORMIN hydrochloride 1000 mg oral tablet (12 sources)BiguanideStart: 00-15-6974mfqz 1 tablet by mouth twice daily metformin 1000 mg Tab See Instructions, TAKE ONE TABLET BY MOUTH TWICE A DAY, # 180 tab(s), Refills(s) 1, Pharmacy: [facility] 185, cm, 10/14/24 7:46:00 EST, Height/Length Dosing, 121.3, kg, 10/14/24 7:46:00 EST, Weight Dosing Start Date: 10/14/24 Status: OrderedStart: 92-62-6671tvuc 1 tablet by mouth twice dailymetformin 1000 mg Tab 1,000 mg = 1 tab(s), Oral, BID, # 60 tab(s), Refills(s) 0, Pharmacy: [facility], 185, cm, 04/09/24 7:36:00 EDT, Height/Length Dosing, 118.4, kg, 04/09/24 7:36:00EDT, Weight Dosing Start Date: 05/02/24 Status: OrderedStart: 71-74-2471pbxi 1 tablet by mouth twice dailymetformin 1000 mg Tab 1,000 mg = 1 tab(s), Oral, BID, # 180 tab(s), Refills(s) 0 Start Date: 10/26/23Status: OrderedStart: 48-35-8053femt 1 tablet by mouth twice daily at mealtimemetFORMIN (GLUCOPHAGE) 1000 MG tablet Take 1 tablet by mouth 2 times daily (with meals) 90 tablet Activetake 1 tablet by mouth twice daily at mealtimemetFORMIN (GLUCOPHAGE) 1000 MG tablet Take 1,000 mg by mouth 2 times daily (with meals) 0 Activemupirocin 0.02 mg/mg topical ointment (4 sources)RNA Synthetase Inhibitor AntibacterialStart: 71-05-9871kkjriwgpy Top 2% Oint Refill(s) 0 Start Date: 10/26/23 Status: Ckxlifz96 hr nicotine 0.875 mg/hr transdermal system (3 sources)Cholinergic Nicotinic AgonistStart: 07-21-2020 End: 91-39-3607nncoe 1 dose transdermal route once dailynicotine (NICODERM CQ) 21 MG/24HR Place 1 patch onto the skin daily 42 patch 0 07/21/2020 Active omeprazole 20 mg delayed release oral capsule (9 sources)Proton Pump InhibitorStart: 73-21-1894cxoy 1 capsule by mouth once dailyomeprazole 20 mg Cap-DR See Instructions, TAKE ONE CAPSULE BY MOUTH EVERY DAY, # 30 cap(s), Refills(s) 0, Pharmacy: [facility], 185, cm, 08/15/24 8:05:00 EST, Height/Length Dosing, 119.1, kg, 08/15/24 8:05:00 EST, Weight Dosing Start Date: 09/15/24 Status: OrderedStart: 13-20-1391grko 1 capsule by mouth once dailyomeprazole 20 mg Cap-DR 20 mg = 1 cap(s), Oral, Daily, # 30 cap(s), Refills(s) 0, Pharmacy: [facility], 185, cm, 04/09/24 7:36:00 EDT, Height/Length Dosing, 118.4, kg, 04/09/24 7:36:00 EDT, Weight Dosing Start Date: 04/30/24 Status: OrderedStart: 85-70-7631vmuv 1 capsule by mouth once daily before breakfastomeprazole 20 mg Cap-DR 20 mg = 1 cap(s), Oral, Daily, before breakfast, # 90 cap(s), Refills(s) 0 Start Date: 10/26/23 Status: OrderedStart: 99-96-4701itpi 1 capsule by mouth once daily before breakfastomeprazole (PRILOSEC) 20 MG delayed release capsule TAKE 1 CAPSULE BY MOUTH ONE TIME A DAY BEFORE BREAKFAST 90 capsule 3 09/01/2022 ActiveStart: 17-40-4459sprj 1 capsule by mouth once daily before breakfastomeprazole (PRILOSEC) 20 MG delayed release capsule Take 1 capsule by mouth every morning (before breakfast) 90 capsule 1 01/28/2021 Activepioglitazone 45 mg oral tablet (12 sources)Peroxisome Proliferator Receptor alpha Agonist, Peroxisome Proliferator Receptor gamma Agonist, ThiazolidinedioneStart: 26-58-1736vdso 1 tablet by mouth once dailypioglitazone 45 mg Tab 45 mg = 1 tab(s), Oral, Daily, # 90 tab(s), Refills(s) 1, Pharmacy: [facility], 185, cm, 10/14/24 7:46:00 EST, Height/Length Dosing, 121.3, kg, 10/14/24 7:46:00 EST, Weight Dosing Start Date: 10/14/24 Status: OrderedStart: 59-18-2767vbrb 1 tablet by mouth once dailypioglitazone 45 mg Tab 45 mg = 1 tab(s), Oral, Daily, # 90 tab(s), Refills(s) 0, Pharmacy: [facility], 185, cm, 05/15/24 7:36:00 EDT, Height/Length Dosing, 121.8, kg, 05/15/24 7:36:00EDT, Weight Dosing Start Date: 06/24/24 Status: OrderedStart: 70-48-7049oent 1 tablet by mouth once dailypioglitazone 45 mg Tab 45 mg = 1 tab(s), Oral, Daily, # 90 tab(s), Refills(s) 1, Pharmacy: [facility], 185, cm, 02/19/24 7:35:00 EDT, Height/Length Dosing, 119.7, kg, 02/19/24 7:35:00EDT, Weight Dosing Start Date: 02/19/24 Status: OrderedStart: 27-64-2757moqj 1 tablet by mouth once daily pioglitazone 45 mg Tab 45 mg = 1 tab(s), Oral, Daily, # 90 tab(s), Refills(s) 0 Start Date: 10/26/23 Status: OrderedStart: 10-33-0366mvet 1 tablet by mouth once dailypioglitazone (ACTOS) 45 MG tablet TAKE 1 TABLET BY MOUTH ONE TIME DAILY 90 tablet 3 09/01/2022 Activetake 1 tablet by mouth once dailypioglitazone (ACTOS) 30 MG tablet Take 30 mg by mouth daily 0 Activesildenafil 100 mg oral tablet (2 sources)Phosphodiesterase 5 InhibitorStart: 82-44-0605xfza 1 tablet by mouth every hour as needed, then take 1 tablet by mouth every twenty-four hours as neededsildenafil (VIAGRA) 100 MG tablet Take 1 tablet by mouth as needed for Erectile Dysfunction 1 hour prior to sexual activity. Do not exceed more than 1 dose in 24 hours. 30 tablet 1 09/01/2022 Activesimvastatin 20 mg oral tablet (12 sources)HMG-CoA Reductase InhibitorStart: 62-57-3302lton 1 tablet by mouth once dailysimvastatin 20 mg Tab See Instructions, TAKE ONE TABLET BY MOUTH EVERY DAY, # 90 tab(s), Refills(s)1, [facility] 185, cm, 10/14/24 7:46:00 EST, Height/Length Dosing, 121.3, kg, 10/14/24 7:46:00 EST, Weight Dosing Start Date: 10/14/24 Status: OrderedStart: 78-32-9990uzaq 1 tablet by mouth once dailysimvastatin 20 mg Tab 20 mg = 1 tab(s), Oral, Daily, # 90 tab(s), Refills(s) 1, Pharmacy: [facility], 185, cm, 05/15/24 7:36:00 EDT, Height/Length Dosing, 121.8, kg, 05/15/24 7:36:00 EDT, Weight Dosing Start Date: 06/18/24 Status: OrderedStart: 06-10-6179audm 1 tablet by mouth once dailysimvastatin 20 mg Tab 20 mg = 1 tab(s), Oral, Daily, # 90 tab(s), Refills(s) 0 Start Date: 10/26/23 Status: OrderedStart: 10-52-4805qfxr 1 tablet by mouth once dailysimvastatin (ZOCOR) 20 MG tablet Take 1 tablet by mouth daily 90 tablet 3 09/01/2022 ActiveStart: 46-98-5286txyqpruuvbo (ZOCOR) 20 MG tabletSITagliptin 100 mg oral tablet (10 sources)Dipeptidyl Peptidase 4 InhibitorStart: 57-07-6262bzsa 1 tablet by mouth once dailyJanuvia 100 mg Tab 100 mg = 1 tab(s), Oral, Daily, # 90 tab(s), Refills(s) 1, Pharmacy: [facility], 185, cm, 02/19/24 7:35:00 EDT, Height/Length Dosing, 119.7, kg, 02/19/24 7:35:00 EDT, Weight Dosing Start Date: 02/19/24 Status: OrderedStart: 98-29-4813igca 1 tablet by mouth once daily Januvia 100 mg Tab 100 mg = 1 tab(s), Oral, Daily, # 90 tab(s), Refills(s) 0 Start Date: 10/26/23 Status: OrderedStart: 01-75-2830bwhv 1 tablet by mouth once dailySITagliptin (JANUVIA) 100 MG tablet Take 1 tablet by mouth daily 90 tablet 3 09/01/2022 ActiveStart: 00-03-5652xino 1 tablet by mouth once dailySITagliptin (JANUVIA) 100 MG tablet Take 1 tablet by mouth daily 90 tablet 0 01/14/2021 ActiveStart: 07-73-3655KFGUHQZ 100 MG tabletsulfamethoxazole 400 mg / trimethoprim 80 mg oral tablet (4 sources)Dihydrofolate Reductase Inhibitor Antibacterial, Sulfonamide AntimicrobialStart: 95-04-7561Guqbqdz 400 mg-80 mg Tab Refill(s) 0 Start Date: 10/26/23 Status: Orderedzinc gluconate 50 mg oral tablet (2 sources)take 1 tablet by mouth once dailyzinc gluconate 50 MG tablet Take 50 mg by mouth daily 0 Active Problems Active Problems Problem ClassificationProblemDateDocumented DateEpisodic/ChronicAnxiety disorders (5 sources)Anxiety; Translations: [Anxiety disorder, unspecified]Onset: 222199-54-8820FnvhcdvBcqkllsr mellitus without complication (17 sources)Type 2 diabetes mellitus without complication; Translations: [Type 2 diabetes mellitus without complications]Onset: 661400-72-1354Fichbex Disorders of lipid metabolism (13 sources)Hyperlipidemia; Translations: [Other hyperlipidemia]Onset: 568252-22-4158OxmgjamMjwlhmvcf hypertension (14 sources)Essential hypertension; Translations: [Essential (primary) hypertension]Onset: 517408-26-3023ScckktgSkeo disorders (11 sources)Depressive disorder; Translations: [Major depressive disorder, single episode, unspecified]Onset: 866020-19-9454YtchmptGzfpb aftercare (1 source)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; Translations: [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]Onset: 33-12-3504DxrmpdbqUaeaa male genital disorders (2 sources)Male erectile dysfunction, unspecified; Translations: [Impotence of organic origin]Onset: 81-87-4659UtiutwdTsiml nervous system disorders (1 source)Paige's palsy; 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]Onset: 50-52-0062Nsntmymk Other nutritional; endocrine; and metabolic disorders (1 source)Obesity; Translations: [Other obesity due to excess calories]Onset: 59-68-6933HgcjoyhCicoi nutritional; endocrine; and metabolic disorders (1 source)Obese class II; Translations: [Body mass index (BMI) 35.0-35.9, adult] Onset: 30-82-0746KhogloaRjdou nutritional; endocrine; and metabolic disorders (8 sources)Body mass index 30+ - znjmlse13-16-9624UbhvhcbIoqnl nutritional; endocrine; and metabolic disorders (5 sources)Obesity caused by energy nfycpckgp61-48-8508QasnzxsVwduwnuj codes; unclassified (2 sources)Nicotine-filled electronic cigarette dtpr24-38-7065AjlamutwTscoageoj and history of mental health and substance abuse codes (2 sources)Tobacco use and exposure - finding; Translations: [Tobacco use]Onset: 541548-02-4997LulfaaaUbgr and subcutaneous tissue infections (9 sources)Abscess of face; Translations: [Cutaneous abscess of face]Onset: 69-48-6744Udkwvrqy Past or Other Problems Problem ClassificationProblemDateDocumented DateEpisodic/ChronicNonspecific chest pain (4 sources)Right sided chest pain; Translations: [Non-cardiac chest pain]Onset: 878325-66-4518DrbsnbjrMqyoeofx codes; unclassified (3 sources)Tobacco use and exposure - finding; Translations: [Tobacco use]Onset: 819658-72-1015EsvnpcwjFcfpsmdzwup; intervertebral disc disorders; other back problems (3 sources)Acute thoracic back pain; Translations: [Pain in thoracic spine] Onset: 944884-60-7959Ucprinhd Results Test NameValueInterpretationReference RangeFacilityAmbulatory Visit Summaryon 35-20-2658Ceyvtakvik Visit SummaryAmbulatory Visit Summary SULTANA JOSHUA :1980 [...] 8:40 AM EST With: Emily Maurice Where: [address] [address]- Sunday2025 8:20 AM EST With: Emily Maurice Where: [address] [address]- Medications What How Much When [...] signed up for this yet, please contact [employer] at [phone] to get signed up today. Language Information Language assistance services are available as needed. [facility]/Cl[facility] Noteon 66-76-2850Lzxcoo Medicine Office/Clinic NoteLeon[facility]/Clinic Note HPI Staff Pt [...] MED In 4 weeks 07/07/2025 EDT [address] [place] [address]- Business (1) Additional Instructions: 4 weeks shoulder pain Emily Maurice FAM, MED In 3 months [address] [place] [address]- Additional Instructions: 3 months diabetes [...] 23-valent vaccine 11/07/2021 Recorded 2023-10-26: VIS DATE: 07/16/2019NoMary Rutan HospitalComment on above:Result Comment: Electronically Signed By: Emily Maurice\.br\Date and Time Signed: 07/21/25 09:28 LDYBqqI4rul 97-02-9026FuD5n (Bld) [Mass fraction]9.9 %High<=5.9F[facility] HospitalComment on above:Performed By: #### [id number] #### [facility] [address] [place] [place], [place] [address]Culrhlil Letteron [phone] LetterProvider Letter July 21, 2025 SULTANA JOSHUA [address] [place] [address] : 1980 To Whom It May Concern, Please excuse above patient from work. Date of Appointment: 07/21/2025 May Return to Work On: 07/21/2025 Sincerely, [address] [address] HiezygHsystkMary Rutan HospitalAmbulatory Visit Summaryon 55-48-7586Iypmesydnm Visit SummaryAmbulatory Visit Summary SULTANA JOSHUA :1980 [...] 8:20 AM EST With: Emily Maurice Where: [address] [address]- Medications What How Much When Why Instructions New cyclobenzaprine (cyclobenzaprine 10 mg Tab) 1 Tablets By Mouth At bedtime as needed for for spasm Left shoulder pain BMI 36.0-36.9,adult Obesity (BMI 30- 39.9) Vapes nicotine containing substance Pickup at [facility] New meloxicam (meloxicam 15 mg Tab) 1 Tablets By Mouth Every day Left shoulder pain BMI 36.0-36.9,adult Obesity (BMI 30-39.9) Vapes nicotine containing substance Pickup at [facility] New methylPREDNISolone (Medrol 4 mg Tab) 1 Packets By Mouth As Directed Left shoulder pain BMI 36.0-36.9,adult Obesity (BMI 30-39.9) Vapes nicotine containing substance Duration: 6 Days as directed on package labeling Pickup at [facility] Unchanged amlodipine (amLODIPine 10 mg Tab) [...] a day (at bedtime) Hyperlipidemia Pharmacy Information [facility]: [address] [place], [place] [id number] [phone] Allergies No Known Medication Allergies Problems Ongoing [...] signed up for this yet, please contact [employer] at [phone] to get signed up today. Language Information Language assistance services are available as needed. [facility] Medicine Office/Clinic Noteon 09-06-8645Ttqvcv Medicine Office/Clinic NoteFarutland heights [facility]/Clinic Note Chief Complaint Lt [...] spasm, # 30 tab(s), Refills(s) 0, Pharmacy: [facility], 185, cm, 06/30/25 9:11:00 EDT, Height/Length Dosing, 124.1, kg, 06/30/25 9:11:00 EDT, Weight Dosing meloxicam, 15 mg = 1 tab(s), Oral, Daily, # 30 tab(s), Refills(s) 0, Pharmacy: [facility], 185, cm, 06/30/25 9:11:00 EDT, Height/Length Dosing, 124.1, kg, 06/30/25 9:11:00 EDT, WeightDosing methylPREDNISolone, = 1 packet(s), Oral, As Directed, as directed on package labeling, X 6 day(s), # 21 tab(s), Refills(s) 0, Pharmacy: [facility], 185, cm, 06/30/25 9:11:00 EDT, Height/Length Dosing, 124.1, kg, 06/30/25 9:11:00 EDT, Weight Dosing XR Shoulder Complete Left 2. BMI 36.0-36.9,adult (Z68.36: Body mass index [BMI] 36.0-36.9, adult) BMI educatoin Ordered: cyclobenzaprine, 10 mg = 1 tab(s), Oral, Bedtime, PRN for spasm, # 30 tab(s), Refills(s) 0, Pharmacy: [facility], 185, cm, 06/30/25 9:11:00 EDT, Height/Length Dosing, 124.1, kg, 06/30/25 9:11:00 EDT, Weight Dosing meloxicam, 15 mg = 1 tab(s), Oral, Daily, # 30 tab(s), Refills(s) 0, Pharmacy: [facility], 185, cm, 06/30/25 9:11:00 EDT, Height/Length Dosing, 124.1, kg, 06/30/25 9:11:00 EDT, WeightDosing methylPREDNISolone, = 1 packet(s), Oral, As Directed, as directed on package labeling, X 6 day(s), # 21 tab(s), Refills(s) 0, Pharmacy: [facility], 185, cm, 06/30/25 9:11:00 EDT, Height/Length Dosing, 124.1, kg, 06/30/25 9:11:00 EDT, Weight Dosing XR Shoulder Complete Left 3. Obesity (BMI 30-39.9) (E66.9: Obesity, unspecified) see above Ordered: cyclobenzaprine, 10 mg = 1 tab(s), Oral, Bedtime, PRN for spasm, # 30 tab(s), Refills(s) 0, Pharmacy: [facility], 185, cm, 06/30/25 9:11:00 EDT, Height/Length Dosing, 124.1, kg, 06/30/25 9:11:00 EDT, Weight Dosing meloxicam, 15 mg = 1 tab(s), Oral, Daily, # 30 tab(s), Refills(s) 0, Pharmacy: [facility], 185, cm, 06/30/25 9:11:00 EDT, Height/Length Dosing, 124.1, kg, 06/30/25 9:11:00 EDT, WeightDosing methylPREDNISolone, = 1 packet(s), Oral, As Directed, as directed on package labeling, X 6 day(s), # 21 tab(s), Refills(s) 0, Pharmacy: [facility], 185, cm, 06/30/25 9:11:00 EDT, Height/Length Dosing, 124.1, kg, 06/30/25 9:11:00 EDT, Weight Dosing XR Shoulder Complete Left 4. Vapes nicotine containing substance (Z72.0: Tobacco use) consider not vaping Ordered: cyclobenzaprine, 10 mg = 1 tab(s), Oral, Bedtime, PRN for spasm, # 30 tab(s), Refills(s) 0, Pharmacy: [facility], 185, cm, 06/30/25 9:11:00 EDT, Height/Length Dosing, 124.1, kg, 06/30/25 9:11:00 EDT, Weight Dosing meloxicam, 15 mg = 1 tab(s), Oral, Daily, # 30 tab(s), Refills(s) 0, Pharmacy: [facility], 185, cm, 06/30/25 9:11:00 EDT, Height/Length Dosing, 124.1, kg, 06/30/25 9:11:00 EDT, WeightDosing methylPREDNISolone, = 1 packet(s), Oral, As Directed, as directed on package labeling, X 6 day(s), # 21 tab(s), Refills(s) 0, Pharmacy: [facility], 185, cm, 06/30/25 9:11:00 EDT, Height/Length Dosing, 124.1, kg, 06/30/25 9:11:00 EDT, Weight Dosing XR Shoulder Complete Left Follow-u (more content not included)...[facility] HospitalComment on above:Result Comment: Electronically Signed By: Emily Maurice\.br\Date and Time Signed: 06/30/25 09:29 EDTProvider Letteron [phone] Letter Provider Letter June 30, 2025 SULTANA JOSHUA [address] [place] [address] : 1980 To Whom It May Concern, Please excuse above patient from work due to a doctors appointment Date of Illness: From: _ To: _ May Return to Work On:06-30-25 Restrictions: _ Comments: _ Sincerely, Family Medicine [address] [address] NyseomLhfwjhTriHealth McCullough-Hyde Memorial HospitalAmbulatory Visit Summaryon [id number] Visit SummaryAmbulatory Visit Summary SULTANA JOSHUA :1980 [...] AM EST With: PASQUALE STERN CNP Where: [facility] Medicine [address] [address]- Medications What How Much When Why Instructions New dulaglutide (Trulicity Pen 0.75 mg/ 0.5 mL subcutaneous solution) 0.75 Milligram Subcutaneous Every week Diabetes BMI 36.0-36.9,adult Obesity (BMI 30- 39.9) Vapes nicotine containing substance Tobacco use Refills: 2 Pickup at [facility]/pharmacy #[id number] Unchanged amlodipine (amLODIPine 10 mg [...] a day (at bedtime) Hyperlipidemia Pharmacy Information [facility]/pharmacy #[id number]: [address], [place] [id number] [phone] Allergies No Known Medication Allergies Problems Ongoing [...] yet, please contact Health Information Management at [phone] to get signed up today. Language Information Language assistance services are available as needed. [facility] Office/Clinic Noteon 73-00-2523Gxoocv Medicine Office/[facility]El[facility]inic Note Chief Complaint Discuss [...] qWeek, # 2 mL, Refills(s) 2, Pharmacy: [facility]/pharmacy #[id number], 185,cm, 05/14/25 8:43:00 EDT, Height/Length Dosing, 124.5, kg, 05/14/25 8:43:00 EDT, Weight Dosing 2. BMI 36.0-36.9,adult (Z68.36: Body mass index [BMI] 36.0-36.9, adult) BMI 36.38 Ordered: dulaglutide, 0.75 mg, SubCutaneous, qWeek, # 2 mL, Refills(s) 2, Pharmacy: [facility]/pharmacy #[id number], 185,cm, 05/14/25 8:43:00 EDT, Height/Length Dosing, 124.5, kg, 05/14/25 8:43:00 EDT, Weight Dosing 3. Obesity (BMI 30-39.9) (E66.9: Obesity, unspecified) - Continue dietary management with a focus on protein-rich foods and low-calorie beverages. Ordered: dulaglutide, 0.75 mg, SubCutaneous, qWeek, # 2 mL, Refills(s) 2, Pharmacy: [facility]/pharmacy #[id number], 185,cm, 05/14/25 8:43:00 EDT, Height/Length Dosing, 124.5, kg, 05/14/25 8:43:00 EDT, Weight Dosing 4. Vapes nicotine containing substance, (Z72.0: Tobacco use)Tobacco use - Discuss potential cessation strategies for vaping nicotine-containing substances. Ordered: dulaglutide, 0.75 mg, SubCutaneous, qWeek, # 2 mL, Refills(s) 2, Pharmacy: [facility]/pharmacy #[id number], 185,cm, 05/14/25 8:43:00 EDT, Height/Length [...] refills Glucometer, See Instru (more content not included)...[facility] HospitalComment on above:Result Comment: Electronically Signed By: PASQUALE STERN CNP\.br\Date and Time Signed: 05/14/25 09:19 EDTAmbulatory Visit Summaryon 02-12-9583Enqfrikbee Visit SummaryAmbulatory Visit Summary SULTANA JOSHUA :1980 [...] 6 months Comments: Diabetes & HTN Where: [address] [place] [phone] [facility] (1) You Need to Complete the [...] Capsules By Mouth Every day Pickup at [facility] #72 Changed simvastatin (simvastatin 20 mg Tab) 1 Tablets By Mouth Once a day (at bedtime) Pickup at [facility] #72 Unchanged enalapril (enalapril 20 mg Tab) 1 Tablets By Mouth Every day [facility]) [facility] Unchanged amlodipine (amLODIPine 10 mg [...] physician if questions or concerns Pharmacy Information [facility]: [address], [place] [phone] What How Much When Why Comments Stop [...] [facility] w/ Auto Diffon 28-33-7976Nfcxqwof Absolute0.0 E9/LNormal 0.0-0.2[facility] CenterComment on above:Performed By: #### [id number] #### [facility] [address], [place] [address]Lnnoflrie/100 WBC (Bld)0.7 %Normal0.0-2.0[facility] HospitalComment on above:Performed By: #### [id number] #### [facility] [address] [place] [address]Rpm Absolute0.2 E9/LNormal0.0-0.5FChildren's Hospital for Rehabilitation Comment on above:Performed By: #### [id number] #### [facility] [address] [place] [address]Wjrrtpslcse/100 WBC (Bld)4.1 %Normal0.0-8.0[facility] HospitalComment on above:Performed By: #### [id number] #### [facility] [address] [place] [address]Adnnireyjom distribution width (RBC) [Ratio]13.6 %Normal 10.9-14.2FChildren's Hospital for RehabilitationComment on above:Performed By: #### [id number] #### [facility] [address] [place] [address]Iraingihtb (Bld) [Volume fraction]47.8 %Zhaevt89.7-49.0[facility] HospitalComment on above:Performed By: #### [id number] #### [facility] [address] [place] [address]Uvroolpepi (Bld) [Mass/Vol]16.6 g/wHBgygju49.5-17.5FChildren's Hospital for RehabilitationComment on above:Performed By: #### [id number] #### [facility] [address] [place] [address]Abmpg Absolute1.8 E9/LNormal1.0-4.0[facility] Comment on above:Performed By: #### [id number] #### [facility] [address], [place] [address]Iilhbanpvfq/100 WBC (Bld)40.6 %Fxtnuf50.0-50.0[facility] HospitalComment on above:Performed By: #### [id number] #### [facility] [address], [place] [address]ZDT (RBC) [Entitic mass]33.3 hmTzczxu56.0-34.0[facility] HospitalComment on above:Performed By: #### [id number] #### [facility] [address] [place] [address]DZKV (RBC) [Mass/Vol]34.7 g/yBQoclsm46.4-36.0[facility] HospitalComment on above:Performed By: #### [id number] #### [facility] [address] [place] [address]IMZ (RBC) [Entitic vol]96.2 hERmnleq52.0-100.0[facility] HospitalComment on above:Performed By: #### [id number] #### [facility] [address] [place] [address]Vbff Absolute0.4 E9/LNormal0.2-1.0[facility] Comment on above:Performed By: #### [id number] #### [facility] [address] [place] [address]Lrqcczlna/100 WBC (Bld)9.1 %Normal4.0-14.0[facility] HospitalComment on above:Performed By: #### [id number] #### [facility] [address] [place] [address]Ytnasy Absolute2.0 E9/LNormal2.0-7.5FChildren's Hospital for Rehabilitation Comment on above:Performed By: #### [id number] #### [facility] [address] [place] [address]Bsakqn Auto45.5 %Abhqac63.0-75.0[facility] Comment on above:Performed By: #### [id number] #### [facility] [address] [place] [address]Ktaoypqh596.0 E9/LYceenj057.0-500.0[facility] Comment on above:Performed By: #### [id number] #### [facility] [address], [place] [address]Ktshedoy mean volume (Bld) [Entitic vol]8.8 fLNormal6.4-10.8 [facility] HospitalComment on above:Performed By: #### [id number] #### [facility] [address], [place] [address]CKM9.0 E12/LNormal4.3-5.9[facility] HospitalComment on above:Performed By: #### [id number] #### [facility] [address], [place] [address]MFW4.5 E9/LNormal4.0-11.0[facility] HospitalComment on above:Performed By: #### [id number] #### [facility] [address], [place] [address]FJNpo 44-01-4378Ettmzyp [Mass/Vol]4.8 g/dLNormal3.3-5.0[facility] HospitalComment on above:Performed By: #### [id number] #### [facility] [address] [place] [address]Vebqfwv/Globulin [Mass ratio]1.7 {ratio}Normal1.1-2.2FChildren's Hospital for RehabilitationComment on above:Performed By: #### [id number] #### [facility] [address], [place] [address]Ros Phos52 Int._Unit/NOlsxsg89-20RzwnlqFayette County Memorial Hospital Comment on above:Performed By: #### [id number] #### [facility] [address], [place] [address]PMI32 Int._Unit/LHigh6-46[facility] HospitalComment on above:Performed By: #### [id number] #### [facility] [address], [place] [address]Zdrta gap [Moles/Vol]14 mmol/LNormal6-16[facility] HospitalComment on above:Performed By: #### [id number] #### [facility] [address], [place] [address]HFS82 Int._Unit/LNormal5-43[facility] HospitalComment on above:Performed By: #### [id number] #### [facility] [address], [place] [address]Blsq Total0.7 mg/dLNormal0.0-1.1FChildren's Hospital for Rehabilitation Comment on above:Performed By: #### [id number] #### [facility] [address], [place] [address]LHL/Creat Ratio20 No FrkbsQaqsmm45-08NqtwduFayette County Memorial HospitalComment on above:Performed By: #### [id number] #### [facility] [address], [place] [address]Qyfewmp [Mass/Vol]10.2 mg/dLNormal8.9-11.1FChildren's Hospital for RehabilitationComment on above:Performed By: #### [id number] #### [facility] [address], [place] [address]Rgpyfpxc [Moles/Vol]100 mmol/XVfj839-815PaivudFayette County Memorial HospitalComment on above:Performed By: #### [id number] #### [facility] [address], [place] [address]GT6 [Moles/Vol]25 mmol/WSksmrh66-46CwexmoFayette County Memorial Hospital Comment on above:Performed By: #### [id number] #### [facility] [address], [place] [address]Qvqdckeavs [Mass/Vol]1.2 mg/dLNormal0.5-1.3FChildren's Hospital for RehabilitationComment on above:Performed By: #### [id number] #### [facility] [address], [place] [address]Qkifqaoz (S) [Mass/Vol]2.9 g/dLNormal1.4-4.0[facility] HospitalComment on above:Performed By: #### [id number] #### [facility] [address], [place] [address]Zmdohch [Mass/Vol]279 mg/uXXpse57-036SoizkcFayette County Memorial HospitalComment on above:Performed By: #### [id number] #### [facility] [address], [place] [address]Zrkiqjrlk [Moles/Vol]4.7 mmol/LNormal3.5-5.3FChildren's Hospital for RehabilitationComment on above:Performed By: #### [id number] #### [facility] [address], [place] [address]Whiqfjy [Mass/Vol]7.7 g/dLNormal6.0-7.8[facility] HospitalComment on above:Performed By: #### [id number] #### [facility] [address], [place] [address]Itmcku [Moles/Vol]134 mmol/OVyg954-672UcgmpeFayette County Memorial HospitalComment on above:Performed By: #### [id number] #### [facility] [address], [place] [address]Vnov nitrogen [Mass/Vol]24 mg/dLHigh5-21[facility] HospitalComment on above:Performed By: #### [id number] #### [facility] [address], [place] [address]Pcfmch Medicine Office/Clinic Noteon 21-40-1662Wzyxgh Medicine Office/Clinic NoteFarutland heights state hospital Medicine Office/Clinic Note Chief Complaint The patient is concerned about diabetes management and medication costs. [facility] Staff Pt presents today for [...] diabetes control. - [facility] and potential insurance coverage for alternatives. - Reviewed patient blood sugar log - Encourage low carb diet and daily exercise - Continue glipizide 10 mf, MetFormin 100 mg, and pioglitazone 45 mg- no refills today - F/U in 3-6 months pending laboratory results Ordered: CBC w/ Auto Diff Comprehensive Metabolic Panel HgbA1c Lab Specimen Collect 29405 Urine Microalbumin/Creatinine Ratio 2. HTN (hypertension) (I10: Essential (primary) hypertension) - Continue current antihypertensive medications: amlodipine and enalapril. Ordered: enalapril, 20 mg = 1 tab(s), Oral, Daily, # 90 tab(s), Refills(s) 1, Pharmacy: [facility], 185, cm, 04/07/25 8:47:00 EDT, Height/Length Dosing, 122.4, kg, 04/07/25 8:47:00 EDT, WeightDosing CBC w/ Auto Diff Comprehensive Metabolic Panel Lipid Panel 3. Hyperlipidemia (E78.5: Hyperlipidemia, unspecified) - Plan to check cholesterol levels during this visit. Ordered: Lab Specimen Collect 22406 Lipid Panel 4. Depression, unspecified (F32.A) - [...] smoker (Z87.891: Personal history of nicotine dependence) [facility] (more content not included)...NormalFayette County Memorial HospitalComment on above:Result Comment: Electronically Signed By: PASQUALE STERN CNP\.shekhar\Date and Time Signed: 04/07/25 09:30 CLHCsrC4axq 03-12-1620GkB2v (Bld) [Mass fraction]7.9 %High<=5.9[facility] HospitalComment on above: Performed By: #### [id number] #### [facility] [address], [place] [address]Cnlvm Panelon 56-34-9892Zyzifotdiox [Mass/Vol]196 mg/dLNormal 120-200[facility] HospitalComment on above:Performed By: #### [id number] #### [facility] [address], [place] [address]Cnbkbzxqpen in HDL [Mass/Vol]36 mg/dLInvalid Interpretation CodeFayette County Memorial HospitalComment on above:Result Comment: '>= 60 LOW RISK' '<= 40 HIGH RISK'Performed By: #### [id number] #### [facility] [address], [place] [address]Ksyrusuncmr in LDL [Mass/Vol]104 mg/dLNormal<=129[facility] HospitalComment on above:Performed By: #### [id number] #### [facility] [address], [place] [address]Gfazatwbosv in VLDL [Mass/Vol]74 mg/dLHigh7-40[facility] HospitalComment on above:Performed By: #### [id number] #### [facility] [address], [place] [address]Wrnrbkmcnfla [Mass/Vol]370 mg/dLHigh<=149[facility] Memorial HospitalComment on above:Performed By: #### [id number] #### [facility] [address], [place] [address]GGS Screen, Totalon 96-99-8428TLN Scrn Tot.0.3 ng/mLNormal 0.1-3.5FChildren's Hospital for RehabilitationComment on above:Result Comment: The concentration of PSA determined by different manufacturers can vary due to diffe rences in assay methods and reagent specificity. Values obtained from different assay methods cannot be used interchangeably. The methodology used for this result was chemiluminescence using [employer]'s Access Hybritech PSA reagent.Performed By: #### [id number] #### [facility] [address], [place] [address]V MA/Cr Ratioon 25-95-0790Hlrmnwqg/Cr Bgaqi908.3 mg/gm CrHigh .0-30.0[facility] HospitalComment on above:Result Comment: 30-300 mg/g Cr indicates an increased risk for diabetic nephropathy. >300 mg/g Cr is consistent with clinical nephropathy.Performed By: #### [id number] #### [facility] [address], [place] [address]K Ijrccaybye42.7 mg/dLInvalid Interpretation CodeFayette County Memorial HospitalComment on above:Performed By: #### [id number] #### [facility] [address], [place] [address]Q Ulzhtvbw00.4 mg/dLHigh0.0-1.9[facility] Comment on above:Result Comment: Result Verified by DilutionPerformed By: #### [id number] #### [facility] [address], [place] [address]gLLFrn 84-46-2343mBJJ29 mL/min/1.73 q0Nuxool>=59[facility] HospitalComment on above:Performed By: #### [id number] #### [facility] [address] [place], [place] [address]Lawktvrpyb Visit Summaryon 08-55-0912Awrnggdrbh Visit Summary Ambulatory Visit Summary SULTANA JOSHUA [...] AM EDT With: PASQUALE STERN CNP Where: [address] [address]- Medications What How Much When Why Instructions Changed enalapril (enalapril 20 mg Tab) 1 Tablets By Mouth Every day HTN (hypertension) Pickup at [facility]. Changed glipiZIDE (glipiZIDE 10 mg ER Tab) 1 Tablets By Mouth Every day Diabetes Pickup at [facility]. Unchanged amlodipine (amLODIPine 10 mg Tab) See instructions HTN (hypertension) TAKE ONE TABLET BY MOUTH ONCE DAILY Pickup at [facility]. Unchanged metformin (metformin 1000 mg Tab) See instructions Diabetes TAKE ONE TABLET BY MOUTH TWICE A [facility]changed pioglitazone (pioglitazone 45 mg Tab) 1 Tablets By Mouth Every day Diabetes Pickup at [facility]. Unchanged simvastatin (simvastatin 20 mg Tab) See instructions Hyperlipidemia TAKE ONE TABLET BY MOUTH EVERY DAY [facility] Unchanged citalopram (citalopram 20 mg Tab) 0.5 Tablets By Mouth Every day Contact prescribing physician if questions or concerns Unchanged omeprazole (omeprazole 20 mg Cap-DR) See instructions TAKE ONE CAPSULE BY MOUTH EVERY DAYContact prescribing physician if questions or concerns Pharmacy Information [facility].: [address] [place], [place] [id number] [phone] Allergies No Known Medication Allergies Problems Ongoing [...] you for choosing us for your care. [facility] HospitalCHEMISTRYOrdered By: SYSTEM SYSTEM on 37-69-5333Jeukczs [Mass/Vol]4.6 g/dLNormal3.3 - 5.0 gm/dLRemisol Chem Albumin/Globulin [Mass ratio]1.6 {ratio}Normal1.1 - 2.2Remisol ChemALP [Catalytic activity/Vol]50 [iU]/pRmvrxo29 - 98 Int._Unit/LRemisol ChemALT No additional P-5'-P [Catalytic activity/Vol]68 [iU]/dHigh6 - 46 Int._Unit/LRemisol ChemAnion gap [Moles/Vol]12 mmol/LNormal6 - 16 mEq/LRemisol ChemAST [Catalytic activity/Vol]42 [iU]/dNormal5 - 43 Int._Unit/LRemisol ChemBilirubin [Mass/Vol] 1.1 mg/dLNormal0.0 - 1.1 mg/dLRemisol ChemCalcium [Mass/Vol]10.0 mg/dLNormal8.9 - 11.1 mg/dLRemisol ChemChloride [Moles/Vol]102 mmol/IRvelgf733 - 111 mmol/L Remisol ChemCholesterol [Mass/Vol]188 mg/iFSdnkfd196 - 200 mg/dLRemisol Chem Cholesterol in HDL [Mass/Vol]39 mg/dLInvalid Interpretation CodeRemisol Chem Comment on above:Result Comment: '>= 60 LOW RISK' '<= 40 HIGH RISK'Cholesterol in LDL [Mass/Vol]124 mg/dLNormal<=129mg/dLRemisol ChemCholesterol in VLDL [Mass/Vol]45 mg/dLHigh7 - 40 mg/dLRemisol ChemCO2 [Moles/Vol]27 mmol/ZOolnot59 - 31 mmol/LRemisol ChemCreatinine [Mass/Vol]1.0 mg/dLNormal0.5 - 1.3 mg/dLRemisol JzninYKG93 mL/min/1.73 h1Skmezo>=59mL/min/1.73 i9Dksvwqu ChemGlobulin (S) [Mass/Vol]2.8 g/dLNormal1.4 - 4.0 gm/dLRemisol Chem Glucose [Mass/Vol]273 mg/tOHgok46 - 199 mg/dLRemisol ChemPotassium [Moles/Vol] 5.1 mmol/LNormal3.5 - 5.3 mmol/LRemisol ChemProtein [Mass/Vol]7.4 g/dLNormal6.0 - 7.8 gm/dLRemisol ChemSodium [Moles/Vol]136 mmol/UYhmtbb857 - 145 mmol/LRemisol ChemTriglyceride [Mass/Vol]226 mg/dLHigh<=149mg/dLRemisol ChemUrea nitrogen [Mass/Vol]14 mg/dLNormal5 - 21 mg/dLRemisol ChemUrea nitrogen/Creatinine [Mass ratio]14 mg/wwWfuteb04 - 20Remisol ChemCHEMISTRYOrdered By: Park Wills on 18-62-3188HwR4w (Bld) [Mass fraction]10.2 %High<=5.9%[facility] ChemAutoSSCMPon 99-34-1434Kvaciec [Mass/Vol]4.6 g/dLNormal3.3-5.0[facility] Comment on above:Performed By: #### [id number] #### [facility] [address] [place] [address]Sxzcmgy/Globulin (S) [Mass conc ratio]1.0Lfxrus0.1-2.2FChildren's Hospital for RehabilitationComment on above:Performed By: #### [id number] #### [facility] [address], [place] [address]KBT [Catalytic activity/Vol]50 Int._Unit/ZHyhmvm57-27IrvuciFayette County Memorial HospitalComment on above:Performed By: #### [id number] #### [facility] [address] [place] [address]CYM No additional P-5'-P [Catalytic activity/Vol]68 Int._Unit/L High6-46[facility] Memorial HospitalComment on above:Performed By: #### [id number] #### [facility] [address], [place] [address]Koowe gap [Moles/Vol]12 mmol/LNormal6-16[facility] HospitalComment on above:Performed By: #### [id number] #### [facility] [address] [place] [address]MUA [Catalytic activity/Vol]42 Int._Unit/LNormal5-43[facility] HospitalComment on above:Performed By: #### [id number] #### [facility] [address], [place] [address]Vpnhkwmwg [Mass/Vol]1.1 mg/dLNormal0.0-1.1FChildren's Hospital for RehabilitationComment on above:Performed By: #### [id number] #### [facility] [address], [place] [address]Ruypmzd [Mass/Vol]10.0 mg/dLNormal8.9-11.1FChildren's Hospital for RehabilitationComment on above:Performed By: #### [id number] #### [facility] [address], [place] [address]Yqzedxtf [Moles/Vol]102 mmol/OOpudie979-777FentnaFayette County Memorial HospitalComment on above:Performed By: #### [id number] #### [facility] [address], [place] [address]IF0 [Moles/Vol]27 mmol/VKtlaox22-75StttutFayette County Memorial Hospital Comment on above:Performed By: #### [id number] #### [facility] [address], [place] [address]Lnzkvdeqnc [Mass/Vol]1.0 mg/dLNormal0.5-1.3FChildren's Hospital for RehabilitationComment on above:Performed By: #### [id number] #### [facility] [address], [place] [address]Sgclbvhd (S) [Mass/Vol]2.8 g/dLNormal1.4-4.0[facility] HospitalComment on above:Performed By: #### [id number] #### [facility] [address], [place] [address]Hqwfmpk [Mass/Vol]273 mg/cZSthz14-331LswywlFayette County Memorial HospitalComment on above:Performed By: #### [id number] #### [facility] [address], [place] [address]Istnuvjbi [Moles/Vol]5.1 mmol/LNormal3.5-5.3FChildren's Hospital for RehabilitationComment on above:Performed By: #### [id number] #### [facility] [address], [place] [address]Nhmkxul [Mass/Vol]7.4 g/dLNormal6.0-7.8[facility] HospitalComment on above:Performed By: #### [id number] #### [facility] [address], [place] [address]Wpuqqd [Moles/Vol]136 mmol/UCwxqgn763-667HqgvjoFayette County Memorial HospitalComment on above:Performed By: #### [id number] #### [facility] [address], [place] [address]Yeym nitrogen [Mass/Vol]14 mg/dLNormal5-21[facility] HospitalComment on above:Performed By: #### [id number] #### [facility] [address], [place] [address]Hflj nitrogen/Creatinine [Mass ratio]14 No IuzfpXjzjro62-52 [facility] HospitalComment on above:Performed By: #### [id number] #### [facility] [address], [place] [address]Sousmz Medicine Office/Clinic Noteon 13-29-1778Mzemjk Medicine Office/Clinic NoteFarutland heights state hospital Medicine Office/Clinic Note Chief Complaint A1C follow up [facility] Staff Irma is a 43 [...] Daily, # 90 tab(s), Refills(s) 1, Pharmacy: [facility] 185, cm, 10/14/24 7:46:00 EST, Height/Length Dosing, 121.3, kg, 10/14/24 7:46:00 EST, Weight Dosing glipiZIDE, 10 mg = 1 tab(s), Oral, Daily, # 90 tab(s), Refills(s) 0, Pharmacy: [facility] 185, cm, 08/15/24 8:05:00 EST, Height/Length Dosing, 119.1, kg, 08/15/24 8:05:00 EST, Weight Dosing metformin, See Instructions, TAKE ONE TABLET BY MOUTH TWICE A DAY, # 180 tab(s), Refills(s) 1, Pharmacy: [facility] 185, cm, 10/14/24 7:46:00 EST, Height/Length Dosing, 121.3, kg, 10/14/24 7:46:00 EST, Weight Dosing pioglitazone, 45 mg = 1 tab(s), Oral, Daily, # 90 tab(s), Refills(s) 1, Pharmacy: [facility] 185, cm, 10/14/24 7:46:00 EST, Height/Length Dosing, 121.3, kg, 10/14/24 7:46:00 EST, Weight Dosing Comprehensive Metabolic Panel HgbA1c Lab Specimen Collect [id number] Lab Specimen Collect [id number] Lipid Panel 2. HTN (hypertension) (I10: Essential (primary) hypertension) Stable Controlled Encourage low sodium diet and exercise Amlodipine 10 mg, enalapril 20 mg refilled at today's visit Awaiting laboratory results f/u 3 months Ordered: amlodipine, See Instructions, TAKE ONE TABLET BY MOUTH ONCE DAILY, # 90 tab(s), Refills(s) 1, [facility]acy: [facility], cm, 10/14/24 7:46:00 EST, Height/Length Dosing, 121.3, kg, 10/14/24 7:46:00 EST, Weight Dosing enalapril, 20 mg = 1 tab(s), Oral, Daily, # 90 tab(s), Refills(s) 1, Pharmacy: [facility], cm, 10/14/24 7:46:00 EST, Height/Length Dosing, 121.3, kg, 10/14/24 7:46:00 EST, Weight Dosing enalapril, 10 mg = 1 tab(s), Oral, Daily, # 30 tab(s), Refills(s) 0, Pharmacy: [facility], 185, cm, 07/10/24 7:24:00 EDT, Height/Length Dosing, 119.9, kg, 07/10/24 7:24:00 EDT, WeightDosing glipiZIDE, 10 mg = 1 tab(s), Oral, Daily, # 30 tab(s), Refills(s) 0, Pharmacy: [facility] 185, cm, 08/15/24 8:05:00 EST, Height/Length Dosing, 11 (more content not included)...NormalFayette County Memorial HospitalComment on above:Result Comment: Electronically Signed By: PASQUALE STERN CNP\Date and Time Signed: 10/14/24 08:34 OVKUsqV0plp 58-00-4731DeK5w (Bld) [Mass fraction]10.2 %High<=5.9F[facility] County Memorial HospitalComment on above:Performed By: #### [id number] #### [facility] [address] [facility] [place], [place] [address]Tnxvn Panelon 99-51-8347Tlmqhuewbhc [Mass/Vol]188 mg/dLNormal 120-200F[facility] County Memorial HospitalComment on above:Performed By: #### [id number] #### [facility] [address] [place], [place] [address]Yiscdaaarvt in HDL [Mass/Vol]39 mg/dLInvalid Interpretation CodeFayette County Memorial HospitalComment on above:Result Comment: '>= 60 LOW RISK' '<= 40 HIGH RISK'Performed By: #### [id number] #### [facility] [address] [place], [place] [address]Mjlezkjmilz in LDL [Mass/Vol]124 mg/dLNormal<=129F[facility] County Memorial HospitalComment on above:Performed By: #### [id number] #### [facility] [address] [place], [place] [address]Rswrvydhixi in VLDL [Mass/Vol]45 mg/dLHigh7-40F[facility] Memorial HospitalComment on above:Performed By: #### [id number] #### [facility] [address] [place], [place] [address]Vfojjdkgmnps [Mass/Vol]226 mg/dLHigh<=149F[facility] County Memorial HospitalComment on above:Performed By: #### [id number] #### [facility] [address] [place], [place] [address]Qibwlez Educationon 14-37-4458Dpbuhwh EducationPatient EducationNormalFayette County Memorial HospitaleGFRon 17-66-6087iHIB85 mL/min/1.73 m2 Normal>=59F[facility] Memorial HospitalComment on above:Performed By: #### [id number] #### [facility] [address] [place], [place] [address]Dmfxud Medicine Office/Clinic Noteon 75-35-8128Idcwpq Medicine Office/Clinic NoteFarutland heights state hospital Medicine Office/Clinic Note Chief Complaint Follow [...] Daily, # 30 tab(s), Refills(s) 0, Pharmacy: [facility] 185, cm, 08/15/24 8:05:00 EST, Height/Length Dosing, 119.1, kg, 08/15/24 8:05:00 EST, Weight Dosing 2. Diabetes (E11.9: Type 2 diabetes mellitus without complications) Uncontrolled Ordered: glipiZIDE, 10 mg = 1 tab(s), Oral, Daily, # 30 tab(s), Refills(s) 0, Pharmacy: [facility], 185, cm, 08/15/24 8:05:00 EST, Height/Length Dosing, 119.1, kg, 08/15/24 8:05:00 EST, WeightDosing glipiZIDE, 10 mg = 1 tab(s), Oral, Daily, # 90 tab(s), Refills(s) 0, Pharmacy: [facility], 185, cm, 08/15/24 8:05:00 EST, Height/Length Dosing, [...] Daily, # 30 tab(s), Refills(s) 0, Pharmacy: [facility] 185, cm, 08/15/24 8:05:00 EST, Height/Length Dosing, [...] Daily, # 30 tab(s), Refills(s) 0, Pharmacy: [facility], 185, cm, 08/15/24 8:05:00 EST, Height/Length Dosing, [...] Daily, # 30 tab(s), Refills(s) 0, Pharmacy: [facility], 185, cm, 08/15/24 8:05:00 EST, Height/Length Dosing, 119.1, kg, 08/15/24 8:05:00 EST, Weight Dosing Follow-up No qualifying data available Patient Education Managing Your Hypertension Hypertension, Adult, Rsdh-yv-Vcfi Problem List/Past Medical History Ongoing Abscess of left external cheek BMI 34.0-34.9,adult BMI 35.0-35.9,adult Depression Diabetes HTN (hypertension) Hyperlipidemia Obesity (BMI 30-39.9) Vapes nicotine containing substance Historical No qualifying data Procedure/Surgical History Anterior cruciate ligament of knee joint, Photorefractive keratectomy. Medications amLODIPine 10 mg Tab, 10 mg= 1 tab(s (more content not included)...[facility] HospitalComment on above:Result Comment: Electronically Signed By: PASQUALE STERN CNP\.br\Date and Time Signed: 08/15/24 08:53 ESTAmbulatory Visit Summaryon [id number] Visit SummaryAmbulatory Visit Summary SULTANA JOSHUA :1980 [...] AM EST With: PASQUALE STERN CNP Where: [facility] [address] [place] [phone]- You Need to Schedule the Following Appointments Follow Up with PASQUALE STERN CNP [facility] When: Within 4 weeks Comments: HTN Where: [address] [place] [phone] Business (1) You Need to Complete the Following HgbA1c, Blood, Routine collect, 07/10/24, Order for future visit, Lab Collect, Diabetes, Print Label By Order Location Medications What How Much When Why Instructions Changed enalapril (enalapril 10 mg Tab) 1 Tablets By Mouth Every day HTN (hypertension) Pickup at [facility] Changed enalapril (enalapril 20 mg Tab) [...] Tablets By Mouth Every day Pharmacy Information [facility]: [address] [place], [place] [id number] [phone] Allergies No Known Medication Allergies Problems Ongoing [...] you for choosing us for your care. [facility] HospitalCHEMISTRYOrdered By: Sakina Langley on 06-08-6280SqI5r (Bld) [Mass fraction]10.4 %High<=5.9%[facility] ChemAutoSS Family Medicine Office/Clinic Noteon 00-09-0674Vmhhdk Medicine Office/Clinic NoteFarutland heights state hospital Medicine Office/Clinic Note HPI Staff Sultana [...] and daily exercise Patient declined referral to metal sorter for assistance with his diet in regards to his diabetes Continue glipizide , MetFormin, & pioglitazone 45 Awaiting HgbA1C results Patient given name and number of eye doctor f/u TBD Ordered: HgbA1c Lab Specimen Collect [id number] 2. HTN (hypertension) (I10: Essential (primary) hypertension) Continue the enalapril 20 mg one tablet daily and the amlodipine 10 mg daily Add enalapril, 10 mg one tablet daily - may take with the 20 mg tablet Encourage low sodium diet & exercise f/u in 4 weeks Ordered: enalapril, 10 mg = 1 tab(s), Oral, Daily, # 30 tab(s), Refills(s) 0, Pharmacy: [facility], 185, cm, 07/10/24 7:24:00 EDT, Height/Length Dosing, 119.9, kg, 07/10/24 7:24:00 EDT, WeightDosing Lab Specimen Collect [id number] 3. Former smoker (Z87.891: Personal history of nicotine dependence) Encouraged to continue as a non-smoker Ordered: Lab Specimen Collect [id number] 4. BMI 35.0-35.9,adult (Z68.35: Body mass index [...] at subsequent visits. Ordered: Lab Specimen Collect [id number] 5. 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 Ordered: Lab Specimen Collect [id number] Follow-up With When Contact Information LEENA SALAMANCA, PASQUALE Avila, TORRES Within [address] [place] [phone] Business (1) Additional Instructions: HTN Patient [...] Tab, 5 mg= 1 (more content not included)...NormalFayette County Memorial HospitalComment on above:Result Comment: Electronically Signed By: PASQUALE STERN CNP\.br\Date and Time Signed: 07/10/24 10:58 TCYRvdC3rry 07-10-2024 HbA1c (Bld) [Mass fraction]10.4 %High<=5.9F[facility] County Memorial HospitalComment on above:Performed By: #### [id number] #### [facility] [address] [place], [place] [address]Ovpnocuncs Visit Summaryon 06-89-0754Dqqptdfznd Visit Summary Ambulatory Visit Summary SULTANA JOSHUA [...] AM EDT With: PASQUALE STERN CNP Where: [address] [address] Medications What How Much When Why Instructions [...] you for choosing us for your care. [facility] Medicine Office/Clinic Noteon 06-73-4487Dxagba Medicine Office/Clinic NoteLeonard Morse Hospital Medicine Office/Clinic Note Chief Complaint f/u [...] Daily, # 90 tab(s), Refills(s) 0, Pharmacy: [facility], cm, 05/15/24 7:36:00 EDT, Height/Length Dosing, 121.8, kg, 05/15/24 7:36:00 EDT, Weight Dosing glipiZIDE, 5 mg = 1 tab(s), Oral, Daily, # 90 tab(s), Refills(s) 0, Pharmacy: [facility] 185, cm, 04/09/24 7:36:00 EDT, Height/Length Dosing, [...] Daily, # 90 tab(s), Refills(s) 0, Pharmacy: [facility] 185, cm, 05/15/24 7:36:00 EDT, Height/Length Dosing, [...] Daily, # 90 tab(s), Refills(s) 0, Pharmacy: [facility] 185, cm, 05/15/24 7:36:00 EDT, Height/Length Dosing, [...] Daily, # 90 tab(s), Refills(s) 0, Pharmacy: [facility] 185, cm, 05/15/24 7:36:00 EDT, Height/Length Dosing, 121.8, kg, 05/15/24 7:36:00 EDT, Weight Dosing 5. Vapes nicotine containing substance (Z72.0: Tobacco use) Ordered: enalapril, 20 mg = 1 tab(s), Oral, (more content not included)...[facility] HospitalComment on above:Result Comment: Electronically Signed By: PASQUALE STERN CNP\.br\Date and Time Signed: 05/15/24 08:43 EDTProvider Letteron [id number] LetterProvider Letter May 15, 2024 SULTANA JOSHUA [address] [place] [phone] : 1980 To Whom It May Concern, Please excuse above patient from work, Sultana did have an appointment this morning 05-15-24 Date of Illness: From: _ To: _ May Return to Work On:05-15-24 Restrictions: _ Comments: _ Sincerely, Family Medicine [address] [address] FacyybNzhzveMary Rutan HospitalAmbulatory Visit Summaryon 03-03-9794Hmmimzecwo Visit SummaryAmbulatory Visit Summary SULTANA JOSHUA :1980 [...] AM EDT With: PASQUALE STERN CNP Where: [place] [phone]- Medications What How Much When Why Instructions [...] you for choosing us for your care. [facility] Medicine Office/Clinic Noteon 35-44-4304Vhcqhh Medicine Office/Clinic NoteLeonard Morse Hospital Medicine Office/Clinic Note HPI Staff Sultana [...] 23-valent vaccine 11/07/2021 Recorded 2023-10-26: VIS DATE: 07/16/2019[facility] HospitalComment on above:Result Comment: Electronically Signed By: PASUQALE STERN CNP\.br\Date and Time Signed: 04/09/24 13:10 EDTProvider Letteron [id number] LetterProvider Letter April 09, 2024 SULTANA JOSHUA [address] [place] [phone] : 1980 To Whom It May Concern, Please excuse above patient from work due to medical reasons Date of Illness: From: _04-08-24 To: _patient had appt. 04-09-24 @ 7:20 a.m. May Return to Work On:04-09-24 Restrictions: _NONE Comments: _ Sincerely, Family Medicine [address] [address] KmjejpKfqxlvTriHealth McCullough-Hyde Memorial HospitalAmbulatory Visit Summaryon 35-39-6910Yhnbiiszps Visit SummaryAmbulatory Visit Summary SULTANA JOSHUA :1980 [...] AM EDT With: PASQUALE STERN CNP Where: [facility] [place] Medicine Office/Clinic Noteon 91-34-7313Ctsicg Medicine Office/Clinic NoteLeonard Morse Hospital Medicine Office/Clinic Note HPI Staff Sultana [...] out and will need some to drug [place] local 30 days to cover until mail [...] Daily, # 30 tab(s), Refills(s) 0, Pharmacy: [facility], 185, cm, 03/18/24 7:22:00 EDT, Height/Length Dosing, 119.9, kg, 03/18/24 7:22:00 EDT, WeightDosing omeprazole, 20 mg = 1 cap(s), Oral, Daily, # 30 cap(s), Refills(s) 0, Pharmacy: [facility], 185, cm, 03/18/24 7:22:00 EDT, Height/Length [...] breakfast, # 90 cap(s), Refills(s) 1, Pharmacy: [facility] 185, cm, 03/18/24 7:22:00 EDT, Height/Length Dosing, 119.9, kg, 03/18/24 7:22:00 EDT, Weight Dosing Follow-up With When Contact Information PASQUALE STERN CNP, FAM Within [address] [place] [phone] [facility] (1) Additional Instructions: HTN Patient Education Heart Attack, Ajvh-vm-Mrmq Problem List/Past Medical History Ongoing Abscess of [...] vaccine 11/07/2021 Record (more content not included)... [facility] HospitalComment on above:Result Comment: Electronically Signed By: PASQUALE STERN CNP\.br\Date and Time Signed: 03/18/24 07:59 EDT Provider Letteron [id number] LetterProvider Letter March 18, 2024 SULTANA JOSHUA [address] [place] [phone] : 1980 To Whom It May Concern, Please excuse above patient from work, Sultana did have an appointment @ 7:20 a.m. this morning with Pasquale Stern NP. Date of Illness: From: _ To: _ May Return to Work On:03-18-24 Restrictions: _ Comments: _ Sincerely, Family Medicine [address] [address] LmtahnLfpgleMary Rutan HospitalCHEMISTRYOrdered By: SYSTEM SYSTEM on 27-07-2361Lrqsnmo [Mass/Vol]4.5 g/dLNormal3.3 - 5.0 gm/dLRemisol Chem Albumin DL <= 20 mg/L (U) [Mass/Vol]91.8 mg/dLHigh0.0 - 1.9 mg/dLRemisol Chem Albumin/Globulin [Mass ratio]1.6 {ratio}Normal1.1 - 2.2Remisol ChemALP [Catalytic activity/Vol]70 [iU]/iTiotad08 - 98 Int._Unit/LRemisol ChemALT No additional P-5'-P [Catalytic activity/Vol]97 [iU]/dHigh6 - 46 Int._Unit/LRemisol ChemAnion gap [Moles/Vol]13 mmol/LNormal6 - 16 mEq/LRemisol ChemAST [Catalytic activity/Vol]74 [iU]/dHigh5 - 43 Int._Unit/LRemisol ChemBilirubin [Mass/Vol]0.8 mg/dLNormal0.0 - 1.1 mg/dLRemisol ChemCalcium [Mass/Vol]9.3 mg/dLNormal8.9 - 11.1 mg/dLRemisol ChemChloride [Moles/Vol]100 mmol/IZlf752 - 111 mmol/LRemisol ChemCholesterol [Mass/Vol]168 mg/aWYcewez508 - 200 mg/dLRemisol ChemCholesterol in HDL [Mass/Vol]26 mg/dLInvalid Interpretation CodeRemisol ChemComment on above:Result Comment: '>= 60 LOW RISK' '<= 40 HIGH RISK'Cholesterol in LDL [Mass/Vol]89 mg/dLNormal<=129mg/dLRemisol ChemCholesterol in VLDL [Mass/Vol]Unable to Calculate mg/dLInvalid Interpretation Code7 - 40 mg/dLRemisol ChemComment on above:Result Comment: 'UNABLE TO REPORT. TRIG > 400 mg/dl'CO2 [Moles/Vol]25 mmol/KOnamqc38 - 31 mmol/L Remisol ChemCreatinine [Mass/Vol]1.0 mg/dLNormal0.5 - 1.3 mg/dLRemisol ChemeGFR 95 mL/min/1.73 d5Zcncoe>=59mL/min/1.73 t0Gkaqjij ChemGlobulin (S) [Mass/Vol]2.9 g/dLNormal1.4 - 4.0 gm/dLRemisol ChemGlucose [Mass/Vol]316 mg/kAGoyc39 - 199 mg/dLRemisol ChemPotassium [Moles/Vol]4.3 mmol/LNormal3.5 - 5.3 mmol/LRemisol ChemProtein [Mass/Vol]7.4 g/dLNormal6.0 - 7.8 gm/dLRemisol Chem Protein/Creatinine (U) [Ratio]152.40 mg/gm CrNormal0.00 - 200.00 mg/gm CrRemisol ChemSodium [Moles/Vol]134 mmol/BBjf897 - 145 mmol/LRemisol ChemTriglyceride [Mass/Vol]466 mg/dLHigh<=149mg/dLRemisol ChemU Sbnxgzmppz31.2 mg/dLInvalid Interpretation CodeRemisol ChemUr Total Ptipzmn768.2 mg/dLInvalid Interpretation CodeRemisol ChemUrea nitrogen [Mass/Vol]16 mg/dLNormal5 - 21 mg/dLRemisol Chem Urea nitrogen/Creatinine [Mass ratio]16 mg/nzPzzdou03 - 20Remisol ChemCHEMISTRY Ordered By: Chadwick Barrera on 91-89-3842LfQ2s (Bld) [Mass fraction]11.5 %High <=5.9%[facility] ChemAutoSSCMPon 20-13-1194Ohsuzyk [Mass/Vol]4.5 g/dLNormal3.3-5.0 [facility] Memorial HospitalComment on above:Performed By: #### [id number] #### [facility] [address] [place], [place] [address]Eaukwzf/Globulin (S) [Mass conc ratio]1.8Cymlir8.1-2.2[facility] Oak Medical CenterComment on above:Performed By: #### [id number] #### [facility] [address], [place] [address]YRR [Catalytic activity/Vol]70 Int._Unit/OXelhnc06-76TxlyqxFayette County Memorial HospitalComment on above:Performed By: #### [id number] #### [facility] [address], [place] [address]FBY No additional P-5'-P [Catalytic activity/Vol]97 Int._Unit/L High6-46F[facility] County Memorial HospitalComment on above:Performed By: #### [id number] #### [facility] [address], [place] [address]YMM [Catalytic activity/Vol]74 Int._Unit/LHigh5-43F[facility] Memorial HospitalComment on above:Performed By: #### [id number] #### [facility] [address], [place] [address]Zzryrsvcs [Mass/Vol]0.8 mg/dLNormal0.0-1.1FChildren's Hospital for RehabilitationComment on above:Performed By: #### [id number] #### [facility] [address], [place] [address]Senzlclr (S) [Mass/Vol]2.9 g/dLNormal1.4-4.0[facility] Memorial HospitalComment on above:Performed By: #### [id number] #### [facility] [address], [place] [address]Zzhapgj [Mass/Vol]7.4 g/dLNormal6.0-7.8[facility] HospitalComment on above:Performed By: #### [id number] #### [facility] [address], [place] [address]Atglw gap [Moles/Vol]13 mmol/LNormal6-16[facility] HospitalComment on above:Performed By: #### [id number] #### [facility] [address], [place] [address]Gshqhvm [Mass/Vol]9.3 mg/dLNormal8.9-11.1FChildren's Hospital for RehabilitationComment on above:Performed By: #### [id number] #### [facility] [address], [place] [address]Aoiogykc [Moles/Vol]100 mmol/ISvg995-341GcmzvjFayette County Memorial HospitalComment on above:Performed By: #### [id number] #### [facility] [address], [place] [address]UF0 [Moles/Vol]25 mmol/KUpnvuk06-04WqisupFayette County Memorial Hospital Comment on above:Performed By: #### [id number] #### [facility] [address], [place] [address]Ziuadevjcg [Mass/Vol]1.0 mg/dLNormal0.5-1.3FChildren's Hospital for RehabilitationComment on above:Performed By: #### [id number] #### [facility] [address], [place] [address]Qjflgoc [Mass/Vol]316 mg/dOQcnx54-362DqinguFayette County Memorial HospitalComment on above:Performed By: #### [id number] #### [facility] [address], [place] [address]Ymmaxovco [Moles/Vol]4.3 mmol/LNormal3.5-5.3FChildren's Hospital for RehabilitationComment on above:Performed By: #### [id number] #### [facility] [address], [place] [address]Oajfdo [Moles/Vol]134 mmol/NYdg663-245BrskinFayette County Memorial HospitalComment on above:Performed By: #### [id number] #### [facility] [address], [place] [address]Zxwj nitrogen [Mass/Vol]16 mg/dLNormal5-21[facility] Memorial HospitalComment on above:Performed By: #### [id number] #### [facility] [address], [place] [address]Fcif nitrogen/Creatinine [Mass ratio]16 No PonjcCwzaot46-90 [facility] HospitalComment on above:Performed By: #### [id number] #### [facility] [address], [place] [address]CpzN6wsy 93-88-0346SnC0y (Bld) [Mass fraction]11.5 %High<=5.9 [facility] Memorial HospitalComment on above:Performed By: #### [id number] #### [facility] [address], [place] [address]Ybibf Panelon 96-30-0701Mhgrukrpeoe in VLDL [Mass/Vol]UTC Abnormal7-40F[facility] Memorial HospitalComment on above:Result Comment: 'UNABLE TO REPORT. TRIG > 400 mg/dl' Result verified by Discern Rule. Performed result UT (Unable to Calculate) was sent as an Alpha code due the inability to calculate a valid numeric value. Performed By: #### [id number] #### [facility] [address], [place] [address]Jsesoieeisu [Mass/Vol]168 mg/mVPhyemm354-784OpksgkFayette County Memorial HospitalComment on above:Performed By: #### [id number] #### [facility] [address], [place] [address]Vfajfpmexxq in HDL [Mass/Vol]26 mg/dLInvalid Interpretation CodeFayette County Memorial HospitalComment on above:Result Comment: '>= 60 LOW RISK' '<= 40 HIGH RISK'Performed By: #### [id number] #### [facility] [address], [place] [address]Rslgbdmqdxf in LDL [Mass/Vol]89 mg/dLNormal<=129F[facility] Memorial HospitalComment on above:Performed By: #### [id number] #### [facility] [address], [place] [address]Ndaocmkdggzg [Mass/Vol]466 mg/dLHigh<=149F[facility] Memorial HospitalComment on above:Performed By: #### [id number] #### [facility] [address], [place] [address]V Microalbon 13-33-3649Ejbgbsi DL <= 20 mg/L (U) [Mass/Vol]91.8 mg/dLHigh0.0-1.9[facility] HospitalComment on above:Performed By: #### [id number] #### [facility] [address], [place] [address]I Protein/Creat Ratioon 43-11-5143Jmowxed/Creatinine (U) [Ratio]152.40 mg/gm CrNormal.00-200.00F[facility] Memorial HospitalComment on above:Performed By: #### [id number] #### [facility] [address], [place] [address]A Ltjzmatica73.2 mg/dLInvalid Interpretation [facility] CampusComment on above:Performed By: #### [id number] #### [facility] [address], [place] [address]Sj Total Pmrqfta259.2 mg/dLInvalid Interpretation [facility] CampusComment on above:Performed By: #### [id number] #### [facility] [address], [place] [address]wLHDrj 85-40-4150zLLA16 mL/min/1.73 j2Bpedsl>=59F[facility] Memorial HospitalComment on above:Order Comment: Order added by Discern Expert. Performed By: #### [id number] #### [facility] [address], [place] [address]Izkweguceb Visit Summaryon 23-75-1195Zhmblesylu Visit Summary SULTANA JOSHUA :1980 Visit Date:02/19/2024 [...] Appointments 2023 7:00 AM EDT With: Where: [facility] Belle[place]Invalid Interpretation [address] [place] [address]- \.br\ You Need to Schedule the Following Appointments\.br\ Follow Up with PASQUALE STERN CNP, FAM When: Within 4 weeks\.br\ Comments:\.br\ HTN\.br\ Where:\.br\ [address]\.br\ [place] [address]\.br\ Business ( 1)\.br\ \.br\ You Need to Complete the Following\.br\ Comprehensive Metabolic Panel, Blood, Routinecollect, 02/19/24, Order for future visit, Lab Collect, [facility]Gal[facility] Office/Clinic Noteon 37-36-2667Yxvatm Medicine Office/Clinic NoteChief Complaint Patient in office [...] Daily, # 30 tab(s), Refills(s) 0, Pharmacy: [facility], 185, cm, 02/19/24 7:35:00 EDT, Height/Length Dosing, 119.7, kg, 02/19/24 7:35:00 EDT, Weight Dosing Comprehensive Metabolic Panel Lipid Panel 3. Yeast infection (B37.9: Candidiasis, unspecified) Ordered: fluconazole, 100 mg = 1 tab(s), Oral, Daily, X 7 day(s), # 7 tab(s), Refills(s) 0, Pharmacy: [facility], 185, cm, 02/19/24 7:35:00 EDT, Height/Length Dosing, 119.7, kg, 02/19/24 7:35:00 EDT, Weight Dosing Orders: pioglitazone, 45 mg = 1 tab(s), Oral, Daily, # 90 tab(s), Refills(s) 1, Pharmacy: [facility], 185, cm, 02/19/24 7:35:00 EDT, Height/Length Dosing, 119.7, kg, 02/19/24 7:35:00 EDT, Weight Dosing sitagliptin, 100 mg = 1 tab(s), Oral, Daily, # 90 tab(s), Refills(s) 1, Pharmacy: [facility], 185, cm, 02/19/24 7:35:00 EDT, Height/Length Dosing, 119.7, kg, 02/19/24 7:35:00 EDT, Weight Dosing Total time spent preparing the chart, conducting of the encounter with the patient and family and time spent documenting, reviewing, and ordering tests was 30 minutes. Follow-up With When Contact Information PASQUALE STERN CNP, FAM Within [address] [place] [phone] [facility] (1) Additional Instructions: HTN Patient Education Genital Yeast Infection, Male Hypertension, Adult, Ponh-nt-Wqdl Problem List/Past Medical History Ongoing Abscess of [...] Current, Liquor, 1-2 times per month, 10/26/2023 [facility] (more content not included)...[facility] HospitalComment on above:Result Comment: Electronically Signed By: [...] Keep all follow-up visits. Medicines ? Take tcno-iyy-jthwoks and prescription medicines only as told by [...] blood. ? For m (more content not included)...[facility] HospitalProvider Letteron [phone] Letter February 19, 2024 SULTANA JOSHUA [address] [phone] : 1980 To Whom It May Concern, Please excuse above patient from work Sultana does have appt. @ 7:00 a.m. on February Date of Illness: From: _ To: _ May Return to Work On:02-21-24 Restrictions: _NONE Comments: _ Sincerely, [place], [place] [id number] FansxwDzddowSelect Medical Specialty Hospital - Cleveland-FairhillProvider Letter February 19, 2024 SULTANA JOSHUA [address] [id number] : 1980 To Whom It May Concern, Please excuse above patient from work, Sultana had an appt this morning at 7:40 a.m. Date of Illness: From: _ To: _ May Return to Work On:02-19-24 Restrictions: _NONE Comments: _ Sincerely, [place] [id number] WajzazYfgjnrTriHealth McCullough-Hyde Memorial HospitalAmbulatory Visit Summaryon [id number] Visit Summary SULTANA JOSHUA :1980 Visit Date:11/30/2023 [...] you for choosing us for your care. [facility] HospitalGeneral Surgery Office/Clinic Noteon 09-27-4997Xlaryai Surgery Office/Clinic NoteChief Complaint 1 month follow [...] with voice recognition artificial intelligence software, specifically Downstream, Get In and or [employer]. Substitutions may have occurred voice recognition and artificial intelligence software. Documentation services were performed after patient or guardian consented to allow PaeDae to record this visit. ABBY technical information specialist and provider reviewed before signing. ABBY: [...] pneumococcal 23-valent vaccine 11/07/2021 Recorded 2023-10-26: DATE: 07/16/2019[facility] Memorial HospitalComment on above:Result Comment: Electronically Signed By: [...] with voice recognition artificial intelligence software, specifically Downstream, Get In and or [employer]. Substitutions may have occurred voice recognition and artificial intelligence software. Documentation services were performed after patient or guardian consented to allow PaeDae to record this visit. ABBY technical information specialist and provider reviewed before signing. ABBY: [...] 23-valent vaccine 11/07/2021 Recorded 2023-10-26: VIS DATE: 07/16/2019[facility] Memorial HospitalComment on above:Result Comment: Electronically Signed By: Rajat Zeng MD\.br\Date and Time Signed: 11/05/23 15:39 EST\.br\Electronically Co-Signed By: Gillian Hernandez\.br\Date and Time Co-Signed: 11/02/23 09:39 ESTAmbulatory Visit Summaryon [id number] Visit Summary SULTANA JOSHUA :1980 Visit Date:11/02/2023 [...] AM EDT With: Rajat Zeng MD Where: [facility]Provider Letteron [id number] Letter November 02, 2023 SULTANA JOSHUA [address] [place] [phone] : 1980 To Whom It May Concern, Please excuse above patient from work. 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 male here for abscess on neck Patient was seen at [facility] on 10/21/2023 Bedside US done showing [...] with voice recognition artificial intelligence software, specifically Downstream, Get In and or [employer]. Substitutions may have occurred due to the inherent limitations of voice recognition and artificial intelligence software. Documentation services were performed after patient or guardian consented to allow PaeDae to record this visit. ABBY technical information specialist and provider reviewed before signing. ABBY: Zenitum Follow-up No qualifying data available Patient Education [...] History Diabetes mellitus type (more content not included)...[facility] HospitalComment on above:Result Comment: Electronically Signed By: Rajat eZng MD\.br\Date and Time Signed: 10/29/23 08:41 EST\.br\Electronically Co- Signed By: Giovanna Sewell\.br\Date and Time Co-Signed: 10/26/23 11:30 EST Ambulatory Visit Summaryon 56-99-4127Mtmfjvqpyz Visit Summary SULTANA JOSHUA :1980 Visit Date:10/26/2023 [...] EST With: Azucena ARRIAGA, Rajat Hurd Where: [facility] General Surgery [facility] Medicine Office/Clinic Noteon [id number] Medicine Office/Clinic NoteChief Complaint ED follow up and Establish care HPI Staff Establish Care: History: Any previous diagnosis: DM, HTN History of seeing any specialist: n/a When was your last doctors visit: unknown Last provider: Monica Durán Any recent labs: Last [facility] U[facility]: Colonoscopy: no Acute: Current issues/complaints: ER followup: Hospital: [facility] Visit date:10/20/2023 Symptoms the patient presented [...] & Hyperlipidemia. He was seen at the [facility] Edfor the abscesses on the left side of his neck on 10/20/2023. He reports they gave him two oral ATB's and mupirocin topical for the area. He states they wanted him to make an appointment with Dr. Orourke, general surgery in [place] but told him to come to a [...] compresses to the area Awaiting report from [facility] ED Appointment today at 10 AM with [facility] [place] [facility] [place]dered[place] [facility] Internal Ambulatory Referral 2. Encounter to establish [...] CNP, FAM Within 2 to [address] [place] [address] 44 (more content not included)...[facility] Memorial HospitalComment on above:Result Comment: Electronically Signed By: PASQUALE STERN CNP\.br\Date and Time Signed: 10/26/23 10:55 ESTPatient Educationon 48-25-8586Otnejdc EducationGastroenterology Obesity, Adult Obesity is the condition [...] ovarian syndrome (PCOS). ? Binge-eating disorder. ? Lane syndrome. ? Taking certain medicines, such as [...] food choices, such as grocery stores and [employer]. What are the signs or symptoms? The [...] much you have to (more content not included)...[facility] EducationInfectious Disease Skin Abscess A skin abscess [...] these instructions at home: Medicines ? Take wxld-ciu-eoyiyut and prescription medicines only as told by [...] cannot use soap and water, use hand railway head tender. ? Check your abscess every day for signs that the infection is getting worse. Check for: ? More redness, swelling, or pain. ? More fluid or blood. ? Warmth. ? More pus or a bad smell. General instructions ? To avoid spreading the infection: ? Do not share personal care items, towels, or hot tubs with others. ? Avoid making ebtj-tj-axaq contact with other people. ? Keep all [...] provider. Document Revised: 12/07/2022 Document Reviewed: 06/12/2022 [employer] Patient Education ? 2022 ValenTx.[facility] Provider Letteron [id number] Letter October 26, 2023 SULTANA JOSHUA [address] [place] [phone] : 1980 To Whom It May Concern, Please excuse above patient from work. Date of Illness: From: 10/26/2023 To: 10/28/2023 May Return to Work On:10/29/23 Restrictions: _ Comments: _ Sincerely, Rajat Zeng MD [facility] General SurgeryTriHealth McCullough-Hyde Memorial HospitalBasic Metabolic Profon 29-42-2972Oarab gap [Moles/Vol]11 mmol/LNormal9-17Glenbeigh HospitalComment on above:Performed By: #### ESTUARDO BMP, MG #### [facility] [address] [place] [address] [place] [address] Quality Assurance Supervisor: Norm Frank MDBUN/CRE Khnyb72Rivrdg7-25Rebgy [facility] Comment on above:Performed By: #### ESTUARDO BMP, MG #### [facility] [address] [place] [address] Quality Assurance Supervisor: SUSANA Fairchildalcium [Mass/Vol]9.9 mg/dLNormal8.6-10.4[facility]igh HospitalComment on above:Performed By: #### CDP BMP, MG #### [address] [place] [address] Quality Assurance Supervisor: SUSANA Fairchildhloride [Moles/Vol]106 mmol/ZXexwcb19-050FiaqrGlenbeigh HospitalComment on above:Performed By: #### CDP, BMP, MG #### [address] [place] [address] Quality Assurance Supervisor: Norm Frank MDCO2 [Moles/Vol]24 mmol/WRbpnwv90-23VpbglGlenbeigh HospitalComment on above:Performed By: #### CDP, BMP, MG #### [address] [place], [place] [address]83 Quality Assurance Supervisor: SUSANA Fairchildreatinine [Mass/Vol]0.9 mg/dLNormal0.7-1.2MSumma Health Wadsworth - Rittman Medical CenterComment on above:Performed By: #### ESTUARDO BMP, MG #### [address] [place] [address] Quality Assurance Supervisor: Norm Frank MDGFR/1.73 sq M.predicted among non-blacks MDRD (S/P/Bld) [Vol rate/Area]mL/min/{1.73_m2}Normal>60G[facility]beigh HospitalComment on above:Result Comment: These results are [...] secretion.Performed By: #### CDP, BMP, MG #### [address] [place] [address] Quality Assurance Supervisor: Norm Frank MDGlucose [Mass/Vol]146 mg/cBVbnd26-75BkekiSumma Health Wadsworth - Rittman Medical CenterComment on above:Performed By: #### CDP, BMP, MG #### [address] [place], [facility] Quality Assurance Supervisor: CAIO Fairchildotassium [Moles/Vol]4.4 mmol/LNormal3.7-5.3[facility] HospitalComment on above:Performed By: #### CDP, BMP, MG #### [address] [place], [place] [address] Quality Assurance Supervisor: Norm Frank MDSodium [Moles/Vol]141 mmol/OPovhmo198-126Omftf [facility] HospitalComment on above:Performed By: #### CDP, BMP, MG #### [address] [place], [place] [address] Quality Assurance Supervisor: Norm Frank MDUrea nitrogen [Mass/Vol]13 mg/dLNormal6-20MerMercy Health [facility] Hospital HospitalComment on above:Performed By: #### CDP, BMP, MG #### [address] [place], [facility]83 Quality Assurance Supervisor: TRISTA Fairchild with Diffon 64-46-7027Pgx. Basophil0.04 k/uL Normal0.00-0.20MerMercy Health Clermont Hospital HospitalComment on above:Performed By: #### CDP, BMP, MG #### [address] [place], [place] [address] Quality Assurance Supervisor: Sunny Fairchild.Imm.Granulocyte<0.88Maysuz0.00-0.30MerMercy Health Clermont Hospital HospitalComment on above:Performed By: #### CDP, BMP, MG #### [address] [place] [id number] Quality Assurance Supervisor: Sunny Fairchild.Neutrophil (Seg)2.92 k/uLNormal1.50-8.10MerMercy Health Clermont Hospital HospitalComment on above:Performed By: #### CDP, BMP, MG #### [address] [place], [place] [address] Quality Assurance Supervisor: Norm Frank MDBasophils/100 WBC (Bld)1 %Normal0-2[facility] HospitalComment on above:Performed By: #### CDP, BMP, MG #### [address] [place] [address] Quality Assurance Supervisor: Norm Frank MDEosinophils (Bld) [#/Vol]0.26 10*3/uLNormal 0.00-0.44MerMercy Health Clermont Hospital HospitalComment on above:Performed By: #### CDP, BMP, MG #### [address] [place], [place] [address] Quality Assurance Supervisor: Norm Frank MDEosinophils/100 WBC (Bld)4 %Normal1-4MerMercy Health Clermont Hospital HospitalComment on above:Performed By: #### CDP, BMP, MG #### [address] [place], [place] [address] Quality Assurance Supervisor: Norm Frank MDErythrocyte distribution width (RBC) [Ratio]12.6 % Cczoyr35.8-14.4[facility] HospitalComment on above:Performed By: #### CDP, BMP, MG #### [address] [place], [place] [address] Quality Assurance Supervisor: Norm Frank MDHematocrit (Bld) [Volume fraction]45.5 %Normal 40.7-50.3[facility] HospitalComment on above:Performed By: #### CDP, BMP, MG #### [address] [place] [id number] Quality Assurance Supervisor: Norm Frank MDHemoglobin (Bld) [Mass/Vol]16.4 g/dLNormal 13.0-17.0MerMercy Health Clermont Hospital HospitalComment on above:Performed By: #### CDP, BMP, MG #### [address] [place], [place] 7351383 Quality Assurance Supervisor: Boone Fairchildture granulocytes/100 WBC (Bld)0 %Ysuiyw6VsxphGlenbeigh HospitalComment on above:Performed By: #### CDP, BMP, MG #### [address] [place], [facility]83 Quality Assurance Supervisor: Norm Frank MDLymphocytes (Bld) [#/Vol]2.51 10*3/uLNormal 1.10-3.70[facility] HospitalComment on above:Performed By: #### CDP, BMP, MG #### [address] [place], [facility]83 Quality Assurance Supervisor: Izzy Fairchildmphocytes/100 WBC (Bld)39 %Btyjkx39-68RkwysGlenbeigh HospitalComment on above:Performed By: #### CDP, BMP, MG #### [address] [place], [facility]83 Quality Assurance Supervisor: ISELA Fairchild (RBC) [Entitic mass]34.5 jcGchk01.2-33.5[facility] HospitalComment on above:Performed By: #### CDP, BMP, MG #### [address] [place], [facility]83 Quality Assurance Supervisor: ISELA FairchildC (RBC) [Mass/Vol]36.0 g/tYSzqt10.4-34.8[facility] HospitalComment on above:Performed By: #### CDP, BMP, MG #### [address] [place] [address] Quality Assurance Supervisor: MARIO FairchildCV (RBC) [Entitic vol]95.6 bUFwgkpq70.6-102.9 [facility] HospitalComment on above:Performed By: #### CDP, BMP, MG #### [facility] [address] [place], [place] 4160883 Quality Assurance Supervisor: MARIO Fairchildonocytes (Bld) [#/Vol]0.68 10*3/uLNormal0.10-1.20 [facility] HospitalComment on above:Performed By: #### CDP, BMP, MG #### [address] [place] [address] Quality Assurance Supervisor: MARIO Fairchildonocytes/100 WBC (Bld)11 %Normal3-12[facility] HospitalComment on above:Performed By: #### CDP, BMP, MG #### [address] [place], [place] 616[address]83 Quality Assurance Supervisor: Norm Frank MDNeutrophil (Seg)45 %Pdpwno73-23Wnfco [facility] HospitalComment on above:Performed By: #### CDP, BMP, MG #### [address] [place], [place] 5568483 Quality Assurance Supervisor: Norm Frank MDNRBC Automated0.0 per 100 WBCNormal0.0[facility] HospitalComment on above:Performed By: #### CDP, BMP, MG #### [address] [place], [place] 7114383 Quality Assurance Supervisor: Marisol Fairchild mean volume (Bld) [Entitic vol]9.8 fL Normal8.1-13.5[facility] HospitalComment on above:Performed By: #### CDP, BMP, MG #### [address] [place], [place] 9078783 Quality Assurance Supervisor: CAIO Fairchildlatelets (Bld) [#/Vol]210 10*3/uKCmcgld227-745 [facility] HospitalComment on above:Performed By: #### CDP, BMP, MG #### [address] [place], [place] 7386083 Quality Assurance Supervisor: MICA Fairchild (Bld) [#/Vol]4.76 10*6/uLNormal4.21-5.77[facility] HospitalComment on above:Performed By: #### ESTUARDO BMP, MG #### [facility] [address] [place], [place] [id number] Quality Assurance Supervisor: PARISH Fairchild (d) [#/Vol]6.4 10*3/uLNormal3.5-11.3[facility] HospitalComment on above:Performed By: #### BELLA MARTE, MG #### [facility] [address] [place], [place] 887[address]83 Quality Assurance Supervisor: Norm Frank MDCT HEAD WO CONTRASTon 84-45-0960XP HEAD WO CONTRASTEXAMINATION: CT OF THE HEAD [...] Signed by: Dakota Bennett MD 06/22/23 Final resultNormalMerSaint Mary's HospitalCTA HEAD NECK W CONTRASTon 79-92-1351ZBO HEAD NECK W CONTRASTEXAMINATION: CTA OF THE [...] by: Virgil Steward MD 06/22/23 Final resultNormalMercy New Milford HospitalMagnesiumon 36-64-0853Jgfmiscwz [Mass/Vol]1.8 mg/dLNormal1.6-2.6[facility] HospitalComment on above:Performed By: #### BELLA MARTE MG #### [facility] [address] [place] [address] Quality Assurance Supervisor: Norm Frank MDHemoglobin A1Con 31-46-1910Kkbjnbl [Mass/Vol]146 mg/dLNormOhioHealth Pickerington Methodist HospitalComment on above:Result Comment: The ADA and AACC recommend providing the estimated average glucose result to permit better patient understanding of their HBA1c result.Performed By: #### CP, CBC #### [facility] [address] [place] [address] Dr. [place], [place] [phone] Quality Assurance Supervisor: Norm Frank MD #### BVTEST, GLYHGB #### [facility] [employer] [address], [place] [id number] Quality Assurance Supervisor: Trenton Carbajal MDHbA1c (Bld) [Mass fraction]6.7 %High4.0-6.0[facility] HospitalComment on above:Performed By: #### CP, CBC #### [facility] [address] [place] [address] Dr. [place], [place] [phone] Quality Assurance Supervisor: Norm Frank MD #### BVTEST, GLYHGB #### [facility] [employer] [address], [place] [phone] Quality Assurance Supervisor: Trenton Carbajal MDLipid Panelon 80-64-8590Tmjuundfxvm [Mass/Vol] 185 mg/dLNINF - 200 mg/dLBON BELLEVUE HOSPITALComment on above: Cholesterol Guidelines: <200 Desirable 200-240 Borderline >240 Undesirable Cholesterol in HDL [Mass/Vol]37 mg/dLLow40 - PINF mg/dLB[facility] BELLEVUE HOSPITAL Comment on above: HDL Guidelines: <40 Undesirable 40-59 Borderline >59 Desirable Cholesterol in LDL [Mass/Vol]119 mg/dL0 - 130 mg/dLB[facility] BELLEVUE HOSPITAL Comment on above: LDL Guidelines: <100 Desirable 100-129 Near to/above Desirable 130-159 Borderline >159 Undesirable Direct (measured) LDL and calculated LDL are not interchangeable tests. Cholesterol.total/Cholesterol in HDL [Mass ratio]5 {ratio}HighNINF - 5B[facility]LEVUE HOSPITALInterpretation and review of laboratory resultsAbnormalBON BELLEVUE HOSPITALTriglyceride [Mass/Vol]144 mg/dLNINF - 150 mg/dLBON BELLEVUE HOSPITALComment on above: Triglyceride Guidelines: <150 Desirable 150-199 Borderline 200-499 High >499 Very high Based on AHA Guidelines for fasting triglyceride, June 2012. [facility] MEDICAL CENTERLipid Profileon 72-06-4045Isxfadngpft [Mass/Vol]185 mg/dLNormal<200[facility] HospitalComment on above:Result Comment: Cholesterol Guidelines: <200 Desirable 200-240 Borderline >240 UndesirablePerformed By: #### LIPR #### [facility] [address] [place] [address] Quality Assurance Supervisor: SUSANA Lopezholesterol in HDL [Mass/Vol]37 mg/dLLow>40Mer[facility] HospitalComment on above:Result Comment: HDL Guidelines: <40 Undesirable 40-59 Borderline >59 DesirablePerformed By: #### LIPR #### [facility] [employer] [address] [place] [address] Quality Assurance Supervisor: SUSANA Lopezholesterol in LDL [Mass/Vol]119 mg/dLNormal 0-130[facility] HospitalComment on above:Result Comment: LDL Guidelines: <100 Desirable 100-129 Near to/above Desirable 130-159 Borderline >159 Undesirable Direct (measured) LDL and calculated LDL are not interchangeable tests.Performed By: #### LIPR #### [facility] CenterS[facility] [address] [place] [address] Quality Assurance Supervisor: Parish Lopez.total/Cholesterol in HDL [Mass ratio]5.0 {ratio}High<5[facility] HospitalComment on above:Performed By: #### LIPR #### [employer] [address] [place] [address] Quality Assurance Supervisor: Trenton Carbajal MDTriglyceride [Mass/Vol]144 mg/dLNormal<150[facility] HospitalComment on above:Result Comment: Triglyceride Guidelines: <150 Desirable 150-199 Borderline 200-499 High >499 Very high Based on AHA Guidelines for fasting triglyceride, June 2012.Performed By: #### LIPR #### [employer] [address] [place] [id number] Quality Assurance Supervisor: Trenton Carbajal MDTestosterone Free Bio Totalon 14-92-6811Cbi Hormone Tnlisbb52 nmol/L11 - 80 nmol/LBON BELLEVUE HOSPITALTestosterone [Mass/Vol]752 ng/dL220 - 1000 ng/dLBON BELLEVUE HOSPITALTestosterone, Jkmawldytvfj360.5 ng/dL130 - 680 ng/dLBON BELLEVUE HOSPITALCommclaren bay special care hospital on above: The concentration of bioavailable testosterone is derived from a mathematical expression based on the constant for the binding of testosterone to albumin and/or sex hormone binding globulin. Testosterone, Fsdv823.3 pg/mL47 - 244 pg/mLBON BELLEVUE HOSPITALCommclaren bay special care hospital on above:The concentration of free testosterone is derived from a mathematical expression based on the constant for the binding of testosterone to albumin and/or sex hormone binding globulin. B[facility]LEVUE HOSPITALTestosterone,Bioavailon 67-78-4693Vdw Horm Bind Glob56 nmol/QXowqba52-92QvmljGlenbeigh HospitalComment on above:Performed By: #### SANJUANITA, CBC #### [address] [place] [address] Quality Assurance Supervisor: Norm Frank MD #### BVTEST, GLYHGB #### [facility] [employer] [facility], [place] [phone] Quality Assurance Supervisor: Trenton Carbajal MDTest,Tmcedoui109.5 ng/aCSnxwqb694-586ZlwhnGlenbeigh HospitalCommclaren bay special care hospital on above:Result Comment: The concentration of bioavailable testosterone is derived from a mathematical expression based on the constant for the binding of testosterone to albumin and/or sex hormone binding globulin.Performed By: #### SANJUANITA, CBC #### [address] [place] [address] Quality Assurance Supervisor: Norm Frank MD #### BVTEST, GLYHGB #### [facility] [employer] [address] [place] [address] Quality Assurance Supervisor: Trenton Carbajal MDTestosterone [Mass/Vol]752 ng/fIZynuyk512-5436 [facility] HospitalComment on above:Performed By: #### CP, CBC #### [address] [place] [address] Quality Assurance Supervisor: Norm Frank MD #### BVTEST, GLYHGB #### [address] [id number] Quality Assurance Supervisor: Trenton Carbajal MDTestosterone,Mmfw863.3 pg/kNBjcafj92-531PrfzpGlenbeigh HospitalComment on above:Result Comment: The concentration of free testosterone is derived from a mathematical expression based on the constant for the binding of testosterone to albumin and/or sex hormone binding globulin.Performed By: #### SANJUANITA, CBC #### [address] [place], [place] [phone] Quality Assurance Supervisor: Norm Frank MD #### BVTEST, GLYHGB #### [address] [id number] Quality Assurance Supervisor: SUSANA LopezDeaconess Incarnate Word Health System 21-62-5013Lgpovveoyyl distribution width (RBC) [Ratio]12.9 %Ncdhdm68.8-14.4G[facility] HospitalComment on above: Performed By: #### SANJUANITA, CBC #### [address] [place], [place] 213[address]83 Quality Assurance Supervisor: Norm Frank MD #### BVTEST, GLYHGB #### [address] [address] Quality Assurance Supervisor: Trenton Carbajal MDHematocrit (Bld) [Volume fraction]44.0 %Normal 40.7-50.3MSumma Health Wadsworth - Rittman Medical CenterComment on above:Performed By: #### SANJUANITA, CBC #### [address] [place], [place] 9725683 Quality Assurance Supervisor: Norm Frank MD #### BVTEST, GLYHGB #### [address] [phone] Quality Assurance Supervisor: Trenton Carbajal MDHemoglobin (Bld) [Mass/Vol]15.7 g/dLNormal 13.0-17.0[facility] HospitalComment on above:Performed By: #### CP, CBC #### [address] [place] [phone] Quality Assurance Supervisor: Norm Frank MD #### BVTEST, GLYHGB #### [place] [address], [place] 729[address] Quality Assurance Supervisor: MARIO LopezCH (RBC) [Entitic mass]33.9 glAcsg47.2-33.5 [facility] HospitalComment on above:Performed By: #### CP, CBC #### [address] [place] [phone] Quality Assurance Supervisor: Norm Frank MD #### BVTEST, GLYHGB #### [place] [address] [place] [id number] Quality Assurance Supervisor: MARIO LopezCHC (RBC) [Mass/Vol]35.7 g/uHLczg31.4-34.8[facility] HospitalComment on above:Performed By: #### CP, CBC #### [address] [place] [phone] Quality Assurance Supervisor: Norm Frank MD #### BVTEST, GLYHGB #### [place] [address] [place] [id number] Quality Assurance Supervisor: MARIO LopezCV (RBC) [Entitic vol]95.0 sKBhbdvi90.6-102.9 [facility] HospitalComment on above:Performed By: #### CP, CBC #### [address] [place] [address] Quality Assurance Supervisor: Norm Frank MD #### BVTEST, GLYHGB #### [address] [address] Quality Assurance Supervisor: Trenton Carbajal MDNRBC Automated0.0 per 100 WBCNormal0.0[facility] on above:Performed By: #### CP, CBC #### [address] [place] [phone] ( Quality Assurance Supervisor: Norm Frank MD #### BVTEST, GLYHGB #### [address] [address] Quality Assurance Supervisor: Marisol Lopez mean volume (Bld) [Entitic vol]10.6 fL Normal8.1-13.5G[facility]igh HospitalCommclaren bay special care hospital on above:Performed By: #### SANJUANITA, CBC #### [address] [place] [address] Quality Assurance Supervisor: Norm Frank MD #### BVTEST, GLYHGB #### [address] [address] Quality Assurance Supervisor: Christiano Lopez (Bld) [#/Vol]187 10*3/jSFiwepe951-536 [facility] HospitalCommclaren [facility] on above:Performed By: #### CP, CBC #### [address] [place] [address] Quality Assurance Supervisor: Norm Frank MD #### BVTEST, GLYHGB #### [address] [address] Quality Assurance Supervisor: MICA Lopez (Bld) [#/Vol]4.63 10*6/uLNormal4.21-5.77 [facility] on above:Performed By: #### CP, CBC #### [address] [place] [id number] Quality Assurance Supervisor: Norm Frank MD #### BVTEST, GLYHGB #### [facility] [employer] [address], [place] [id number] Quality Assurance Supervisor: Trenton Carbajal MDWBC (Bld) [#/Vol]5.3 10*3/uLNormal3.5-11.3MSumma Health Wadsworth - Rittman Medical CenterComment on above:Performed By: #### CP, CBC #### [facility] [address] [place] [address] Quality Assurance Supervisor: Norm Frank MD #### BVTEST, GLYHGB #### [facility] [employer] [address] [place] [address] Quality Assurance Supervisor: Trenton Carbajal MDHematocrit (Bld) [Volume fraction]44.0 %40.7 - 50.3 %[facility] MEDICAL CENTERHemoglobin (Bld) [Mass/Vol]15.7 g/dL13.0 - 17.0 g/dLBON BELLEVUE HOSPITALInterpretation and review of laboratory results AbnormalJOHNSTON MEMORIAL HOSPITALH (RBC) [Entitic mass]33.9 tdOthq45.2 - 33.5 pgJOHNSTON MEMORIAL HOSPITALHC (RBC) [Mass/Vol]35.7 g/zGJlfv55.4 - 34.8 g/dLBON WVUM[facility] HOSPITALV (RBC) [Entitic vol]95.0 fL82.6 - 102.9 fLBON SECOURS MEMORIAL REGIONAL MEDICAL CENTERNRBC Automated0.00.0 per 100 WBCBON SECOURS MEMORIAL REGIONAL MEDICAL CENTERPlatelet distribution width (Bld) [Ratio]12.9 %11.8 - 14.4 %[facility] Platelet mean volume (Bld) [Entitic vol]10.6 fL8.1 - 13.5 fLBON SECOURS MEMORIAL REGIONAL MEDICAL CENTERPlatelets (Bld) [#/Vol]187 10*3/uLBON BELLEVUE HOSPITALRBC (Bld) [#/Vol]4.63 10*6/uL4.21 - 5.77 m/uLBON BELLEVUE HOSPITALWBC (Bld) [#/Vol]5.3 10*3/uLBON SECOURS [facility] Metabolic Profon [id number] [Mass/Vol]4.4 g/dLNormal3.5-5.2MSumma Health Wadsworth - Rittman Medical CenterComment on above:Performed By: #### CP, CBC #### [address] [place] [address] Quality Assurance Supervisor: Norm Frank MD #### BVTEST, GLYHGB #### [address] [address] Quality Assurance Supervisor: Trenton Carbajal MDAlbumin/Glob Ratio1.9Ayjekk8.0-2.5Glenbeigh HospitalComment on above:Performed By: #### SANJUANITA, CBC #### [address] [place], [place] [id number] Quality Assurance Supervisor: Norm Frank MD #### BVTEST, GLYHGB #### [address] [address] Quality Assurance Supervisor: Heather Lopez Phos61 U/SIfbugb68-151OpjnoGlenbeigh HospitalComment on above:Performed By: #### SANJUANITA, CBC #### [address] [place] [address] Quality Assurance Supervisor: Norm rFank MD #### BVTEST, GLYHGB #### [address] [address] Quality Assurance Supervisor: Trenton Carbajal MDALT [Catalytic activity/Vol]40 U/LNormal5-41 [facility] HospitalCommclaren bay special care hospital on above:Performed By: #### SANJUANITA, CBC #### [address] [place] [address] Quality Assurance Supervisor: Norm Frank MD #### BVTEST, GLYHGB #### [address] [address] Quality Assurance Supervisor: Trenton Carbajal MDAnion gap [Moles/Vol]11 mmol/LNormal9-17Glenbeigh HospitalComment on above:Performed By: #### CP, CBC #### [facility] [address] [place] [address] Dr. [place], [place] [id number] Quality Assurance Supervisor: Norm Frank MD #### BVTEST, GLYHGB #### [address] [phone] Quality Assurance Supervisor: Trenton Carbajal MDAST [Catalytic activity/Vol]23 U/LNormal<40Glenbeigh HospitalComment on above:Performed By: #### SANJUANITA, CBC #### [facility] [address] [place] [address] Dr. [place], [place] [phone] Quality Assurance Supervisor: Norm Frank MD #### BVTEST, GLYHGB #### [address] [address] Quality Assurance Supervisor: Trenton Carbajal MDBilirubin [Mass/Vol]0.4 mg/dLNormal0.3-1.2MSumma Health Wadsworth - Rittman Medical CenterComment on above:Performed By: #### SANJUANITA, CBC #### [address] [place], [place] 534[address] Quality Assurance Supervisor: Norm Frank MD #### BVTEST, GLYHGB #### [address] [address] Quality Assurance Supervisor: Trenton Carbajal MDBUN/CRE Zfmzu11Xalvad6-34[facility] Comment on above:Performed By: #### SANJUANITA, CBC #### [address] [place], [place] [phone] Quality Assurance Supervisor: Norm Frank MD #### BVTEST, GLYHGB #### [address] [address] Quality Assurance Supervisor: SUSANA Lopezalcium [Mass/Vol]9.8 mg/dLNormal8.6-10.4Glenbeigh HospitalComment on above:Performed By: #### CP, CBC #### [address] [place] [phone] Quality Assurance Supervisor: Norm Frank MD #### BVTEST, GLYHGB #### [address] [phone] Quality Assurance Supervisor: SUSANA Lopezhloride [Moles/Vol]106 mmol/OArvxmb57-155ZytifGlenbeigh HospitalComment on above:Performed By: #### CP, CBC #### [address] [place] [phone] Quality Assurance Supervisor: Norm Frank MD #### BVTEST, GLYHGB #### [place] [phone] Quality Assurance Supervisor: SUSANA LopezO2 [Moles/Vol]23 mmol/OVoxpky37-74KygsgGlenbeigh HospitalComment on above:Performed By: #### CP, CBC #### [address] [place] [phone] Quality Assurance Supervisor: Norm Frank MD #### BVTEST, GLYHGB #### [address] [address] Quality Assurance Supervisor: SUSANA Lopezreatinine [Mass/Vol]0.73 mg/dLNormal0.70-1.20 [facility]igh HospitalComment on above:Performed By: #### CP, CBC #### [address] [place] [address] Quality Assurance Supervisor: Norm Frank MD #### BVTEST, GLYHGB #### [address] [phone] Quality Assurance Supervisor: Trenton Carbajal MDGFR/1.73 sq M.predicted among non-blacks MDRD (S/P/Bld) [Vol rate/Area]mL/min/{1.73_m2}Normal>60G[facility] HospitalCommclaren bay special care hospital on above:Result Comment: Effective Jun 19, [...] tubular secretion.Performed By: #### CP, CBC #### [address] [place] [address] Quality Assurance Supervisor: Norm Frank MD #### BVTEST, GLYHGB #### [address] [phone] Quality Assurance Supervisor: Trenton Carbajal MDGlucose [Mass/Vol]179 mg/sMQtci04-30Nciub[address] [place], [place] [address]Comment on above:Performed By: #### SANJUANITA, CBC #### [address] [place] [address] Quality Assurance Supervisor: Norm Frank MD #### BVTEST, GLYHGB #### [address] [phone] Quality Assurance Supervisor: Trenton Carbajal MDPotassium [Moles/Vol]4.1 mmol/LNormal3.7-5.3 [facility]igh HospitalComment on above:Performed By: #### SANJUANITA, CBC #### [address] [place] [address] Quality Assurance Supervisor: Norm Frank MD #### BVTEST, GLYHGB #### [address] [phone] Quality Assurance Supervisor: Trenton Carbajal MDProtein [Mass/Vol]7.1 g/dLNormal6.4-8.3Mkettering health main campusy [facility] HospitalComment on above:Performed By: #### CP, CBC #### [address] [place] [address] Quality Assurance Supervisor: Norm Frank MD #### BVTEST, GLYHGB #### [place] [address], [place] [phone] Quality Assurance Supervisor: EDGAR Lopezodium [Moles/Vol]140 mmol/MVgtxuc874-341MxgbhGlenbeigh HospitalComment on above:Performed By: #### CP, CBC #### [address] [place] [address] Quality Assurance Supervisor: Norm Frank MD #### BVTEST, GLYHGB #### [place] [address], [place] [phone] Quality Assurance Supervisor: Trenton Carbajal MDUrea nitrogen [Mass/Vol]14 mg/dLNormal6-20Glenbeigh HospitalComment on above:Performed By: #### CP, CBC #### [address] [place] [address] Quality Assurance Supervisor: Norm Frank MD #### BVTEST, GLYHGB #### [place] [address], [place] [phone] Quality Assurance Supervisor: SUSANA Lopezomprehensive Metabolic Panelon 09-01-2022 Albumin [Mass/Vol]4.4 g/dL3.5 - 5.2 g/dLBON BELLEVUE HOSPITALAlbumin/Globulin [Mass ratio]1.6 {ratio}1.0 - 2.5B[facility] HEALTHALP (Bld) [Catalytic activity/Vol]61 U/L40 - 129 U/LBON [facility] HEALTHALT [Catalytic activity/Vol]40 U/L5 - 41 U/LBON BELLEVUE HOSPITALAnion gap [Moles/Vol]11 mmol/L9 - 17 mmol/LB[facility] HEALTHAST [Catalytic activity/Vol]23 U/L NINF - 40 U/LBON [facility]LEV[facility] HOSPITALBilirubin [Mass/Vol]0.4 mg/dL0.3 - 1.2 mg/dLBON BELLEVUE HOSPITALCalcium [Mass/Vol]9.8 mg/dL8.6 - 10.4 mg/dLBON BELLEVUE HOSPITALChloride [Moles/Vol]106 mmol/L98 - 107 mmol/LBON BELLEVUE HOSPITALCO2 [Moles/Vol]23 mmol/L20 - 31 mmol/LB[facility]ITAL Creatinine [Mass/Vol]0.73 mg/dL0.70 - 1.20 mg/dLB[facility] [employer] SciencesGFR/1.73 sq M.predicted MDRD (S/P/Bld) [Vol rate/Area]- [facility] Comment on above: Effective Jun 19, [...] that affects renal tubular secretion. Glucose [Mass/Vol]179 mg/tPPxgs83 - 99 mg/dLB[facility]LEV[facility]ITAL Interpretation and review of laboratory resultsAbnormalBON [facility]LEVUE HOSPITAL Potassium [Moles/Vol]4.1 mmol/L3.7 - 5.3 mmol/LBON BELLEVUE HOSPITALProtein [Mass/Vol]7.1 g/dL6.4 - 8.3 g/dLBON BELLEVUE HOSPITALSodium [Moles/Vol]140 mmol/L135 - 144 mmol/LBON BELLEVUE HOSPITALUrea nitrogen (BldV) [Mass/Vol]14 mg/dL6 - 20 mg/dLB[facility] [employer] SciencesUrea nitrogen/Creatinine (Bld) [Mass ratio]199 - 20B[facility] BELLEVUE HOSPITALBON BELLEVUE HOSPITALXR RIBS RIGHT (2 VIEWS)on [id number] acute osseous abnormality of the right ribs.[facility] [place]- [place], KYEXAMINATION: 2 XRAY VIEWS OF THE RIGHT RIBS 09/13/2020 4:22 pm COMPARISON: None. HISTORY: ORDERING SYSTEM PROVIDED HISTORY: Right-sided chest pain TECHNOLOGIST PROVIDED HISTORY: right sided chest pain, s/p injury FINDINGS: AP and oblique views of the right chest wall are submitted for review. No acute fracture or dislocation identified. Overlying soft tissues are unremarkable. Visualized lung parenchyma is clear.[facility], LAYOEdi, Mhpn Incoming Radiant Results From [...] acute osseous abnormality of the right ribs. [facility], KYALTon [id number] [Catalytic activity/Vol]37 U/L5 - 41 U/L [facility], KYASTon [id number] [Catalytic activity/Vol]19 U/L<40[facility]- [place], KYBasic Metabolic Panelon [id number] gap [Moles/Vol]10 mmol/L9 - 17 mmol/LMselect medical [facility]- [place], KYBun/Cre [employer]37[facility]cs[facility]- [place], KYCalcium [Mass/Vol]9.9 mg/dL8.6 - 10.4 mg/dLSouthview Medical Center Health- [place], KYChloride [Moles/Vol]99 mmol/L98 - 107 mmol/LMkettering health main campusy Health- [place], KYCO2 [Moles/Vol]25 mmol/L20 - 31 mmol/L [facility]- [place], KYCreatinine [Mass/Vol]0.77 mg/dL0.7 - 1.2 mg/dLSouthview Medical Center Health- [place], KYGFR >60>60 mL/minSouthview Medical Center Health- [place], KYGFR Non->60>60 mL/minSouthview Medical Center Health- [place], KYGlucose [Mass/Vol]140 mg/qIDbep99 - 99 mg/dLSouthview Medical Center Health- [place], KYInterpretation and review of laboratory resultsAbnormal [facility], SCPotassium [Moles/Vol]4.0 mmol/L3.7 - 5.3 mmol/LMDayton VA Medical Center, SCSodium [Moles/Vol]134 mmol/IGqm313 - 144 mmol/LMDayton VA Medical Center, SCUrea nitrogen [Mass/Vol]14 mg/dL6 - 20 mg/dLMcKitrick Hospital, SCCBCon 07-21-2020 Erythrocyte distribution width (RBC) [Ratio]12.3 %11.8 - 14.4 %[facility], SCHematocrit (Bld) [Volume fraction]48.7 %40.7 - 50.3 %[facility], [place] Hemoglobin (Bld) [Mass/Vol]17.4 g/eDYwys77 - 17 g/dLWallingford, [place] Interpretation and review of laboratory resultsAbnormHolzer Hospital, SCMCH (RBC) [Entitic mass]33.4 pg25.2 - 33.5 pgMcKitrick Hospital, SCMCHC (RBC) [Mass/Vol]35.7 g/xZLymw65.4 - 34.8 g/dLMcKitrick Hospital, SCMCV (RBC) [Entitic vol]93.5 fL82.6 - 102.9 fLWallingford, KYPlatelet mean volume (Bld) [Entitic vol]10.1 fL8.1 - 13.5 fLMcKitrick Hospital, SCPlatelets (Bld) [#/Vol]206 10*3/[facility], SCRBC (Bld) [#/Vol]5.21 10*6/uL4.21 - 5.77 m/[facility], SCWBC (Bld) [#/Vol]7.8 10*3/[facility], SCWBC (Bld) [#/Vol] 0.0 10*3/uL0.0 per 100 WBCWallingford, KYLipid Panelon 07-21-2020 Cholesterol [Mass/Vol]190 mg/dL<200[place], KYComment on above: Cholesterol Guidelines: <200 Desirable 200-240 Borderline >240 Undesirable Cholesterol in HDL [Mass/Vol]36 mg/dLLow>40[facility]- [place], KYComment on above: HDL Guidelines: <40 Undesirable 40-59 Borderline >59 Desirable Cholesterol in LDL [Mass/Vol]107 mg/dL0 - 130 mg/dLWallingford, KYComment on above: LDL Guidelines: <100 Desirable 100-129 Near to/above Desirable 130-159 Borderline >159 Undesirable Direct (measured) LDL and calculated LDL are not interchangeable tests. Cholesterol in VLDL [Mass/Vol]NOT REPORTEDHigh1 - 30 mg/dLWallingford, [place] Cholesterol.total/Cholesterol in HDL [Mass ratio]5.3 {ratio}High<5[place], KYInterpretation and review of laboratory resultsAbnormalWallingford, KYTriglyceride [Mass/Vol]235 mg/dLHigh<150[place], KYComment on above: Triglyceride Guidelines: <150 Desirable 150-199 Borderline 200-499 High >499 Very high Based on AHA Guidelines for fasting triglyceride, June 2012. Metabolic Panelon [id number]/1.73 sq M predicted among non-blacks MDRD (S/P/Bld) [Vol rate/Area][place], KYComment on above:Stage 1: Some kidney damage [...] body mass. Additional eGFR calculator available at: http://www.[employer].Inktank/multiple_crcl_2012.htm BILIRUBIN CONJUGATED (DIRECT)on [id number], CONJUGATED0.2 mg/dLNormal0.0-0.3 The [facility] For RehabilitationComment on above:Performed By: #### DBIL #### [facility] [address] [place] [address] Taras VazquezSt. Francis Medical Center AUTO DIFFon [id number] (Bld) [#/Vol]0.0 103/ulNormal 0.0-0.1The [facility] For RehabilitationComment on above:Performed By: #### CBC #### [facility] [address] [place], [place] [id number] Taras KarenBasophils/100 WBC (Bld)0.7 %Normal0.2-2.0[facility] Comment on above:Performed By: #### CBC #### [facility] [address] [place] [address] Taras KarenEosinophils (Bld) [#/Vol]0.1 103/ulNormal0.0-0.7The [facility] Hospital For RehabilitationComment on above:Performed By: #### CBC #### [facility] [address] [place] [address] Taras KarenEosinophils/100 WBC (Bld)1.8 %Normal0.9-7.0[facility] Comment on above:Performed By: #### CBC #### [facility] [address] [place] [address] Taras KarenErythrocyte distribution width (RBC) [Ratio]12.5 %Nttokb17.0-15.0The [facility] Hospital For RehabilitationComment on above:Performed By: #### CBC #### [facility] [address] [place] [address] Taras KarenHematocrit (Bld) [Volume fraction]48.4 %Cmjiwe86.0-54.0The [facility] For RehabilitationComment on above:Performed By: #### CBC #### [facility] [address] [place] [address] Taras KarenHemoglobin (Bld) [Mass/Vol]17.3 g/fVHwtxbb65.0-18.0The [facility] For RehabilitationComment on above:Performed By: #### CBC #### [facility] [address] [place] [address] Taras KarenIG #0.02 10e3/ulNormal0.00-0.03The [facility] For RehabilitationComment on above:Performed By: #### CBC #### [facility] [address] [place] [address] Taras KarenIG %0.3 %Normal0.0-0.5The [facility] Hospital For RehabilitationComment on above: Performed By: #### CBC #### [facility] [address] [place] [address] Taras KarenLymphocytes (Bld) [#/Vol]1.9 103/ulNormal1.2-3.8The [facility] Hospital For RehabilitationComment on above:Performed By: #### CBC #### [facility] [address] [place] [address] Taras KarenLymphocytes/100 WBC (Bld)30.5 %Szkrzo35.5-60.0[facility] Comment on above:Performed By: #### CBC #### [facility] [address] [place] [address] Taras KarenMANUAL DIFF REQNONormalThe Children'S Hospital For RehabilitationComment on above: Performed By: #### CBC #### [facility] [address] [place] [address] Taras KarenMCH (RBC) [Entitic mass]33.6 ltTsucsd42.9-34.0[facility] Comment on above:Performed By: #### CBC #### [facility] [address] [place] [address] Taras KarenMCHC (RBC) [Mass/Vol]35.7 g/dLCritically high29.9-35.2[facility] Memorial HospitalComment on above:Performed By: #### CBC #### [facility] [address] [place] [address] Taras KarenMCV (RBC) [Entitic vol]94.0 aFMazrts22.0-94.0[facility] Comment on above:Performed By: #### CBC #### [facility] [address] [place] [address] Taras KarenMonocytes (Bld) [#/Vol]0.5 103/ulNormal0.3-0.8ThAdams County Regional Medical Center Comment on above:Performed By: #### CBC #### [facility] [address] [place] [id number] Taras KarenMonocytes/100 WBC (Bld)8.0 %Normal1.7-12.0[facility] Comment on above:Performed By: #### CBC #### [facility] [address] [place] [address] Taras KarenNeutrophils (Bld) [#/Vol]3.6 103/ulNormal1.4-6.5ThAdams County Regional Medical CenterComment on above:Performed By: #### CBC #### [facility] [address] [place] [address] Taras KarenNeutrophils/100 WBC (Bld)58.7 %Xhjbmc09.0-75.0[facility] Comment on above:Performed By: #### CBC #### [facility] [address] [place] [address] Taras KarenPlatelet mean volume (Bld) [Entitic vol]10.4 fLNormal9.5-13.5ThAdams County Regional Medical CenterComment on above:Performed By: #### CBC #### [facility] [address] [place] [address] Taras KarenPlatelets (Bld) [#/Vol]203 103/hxGwgvxx535-014YlbMccullough-Hyde Memorial Hospital Comment on above:Performed By: #### CBC #### [facility] [address] [place] [address] Taras KarenRBC (Bld) [#/Vol]5.15 106/ulNormal4.70-6.10ThAdams County Regional Medical Center Comment on above:Performed By: #### CBC #### [facility] [address] [place] [address] Taras KarenWBC (Bld) [#/Vol]6.1 103/ulNormal4.0-11.0[facility] Comment on above:Performed By: #### CBC #### [facility] [address] [place] [address] Taras KarenGLYCOHEMOGLOBIN A1Con 38-95-3300Rldsnwr [Mass/Vol]232 mg/dLAkron Children's HospitalComment on above:Performed By: #### A1C #### [facility] [address] [place], [place] [id number] Taras VaywyXmM4q (Bld) [Mass fraction]9.7 %Critically high<=6.0M[facility] Memorial HospitalComment on above:Performed By: #### A1C #### [facility] [address] [place] [address] Taras KarenLIPID PROFILEon [id number]-HDL RATIO NORMSEE [facility] Medical CenterComment on above:Result Comment: 3.3 - 4.4 LOW RISK 4.4 - 7.1 AVERAGE RISK 7.1 - 11.0 MODERATE RISK >11.0 HIGH RISKPerformed By: #### CMP, LIPID #### [facility] [address] [place] [address] Taras KarenCholesterol [Mass/Vol]244 mg/dLCritically high<=200The [facility] Hospital For RehabilitationComment on above:Performed By: #### CMP, LIPID #### [facility] [address] [place] [address] Taras KarenCholesterol in HDL [Mass/Vol]> or = 60 mg/dl - LOW CARDIOVASCULAR RISK <40 mg/dl - HIGH CARDIOVASCULAR RISKAkron Children's HospitalCommclaren bay special care hospital on above:Performed By: #### CMP, LIPID #### [facility] [address] [place] [address] Taras KarenCholesterol in HDL [Mass/Vol]35 mg/dLAkron Children's Hospital Comment on above:Performed By: #### CMP, LIPID #### [facility] [address] [place] [address] Taras KarenCholesterol in LDL [Mass/Vol]179.8 mg/dLAkron Children's Hospital Comment on above:Performed By: #### CMP, LIPID #### [facility] [address] [place], [place] [id number] Taras KarenCholesterol in LDL [Mass/Vol]SEE [facility] Comment on above:Result Comment: <100 mg/dl OPTIMAL 100 - 129 mg/dl NEAR OR ABOVE OPTIMAL 130 - 159 mg/dl BORDERLINE HIGH 160 - 189 mg/dl HIGH >190 mg/dl VERY HIGHPerformed By: #### CMP, LIPID #### [facility] [address] [place], [place] [id number] Taras KarenCholesterol.total/Cholesterol in HDL [Mass ratio]7.0 {ratio}Normal The [facility] Hospital For RehabilitationComment on above:Performed By: #### CMP, LIPID #### [facility] [address] [place], [place] [address] Taras KarenTriglyceride [Mass/Vol]146 mg/dLNormal<=150[facility] Comment on above:Performed By: #### CMP, LIPID #### [facility] [address] [place] [address] Taras KarenVLDL CALC29.2 mg/dLNormalThAdams County Regional Medical CenterComment on above: Performed By: #### CMP, LIPID #### [facility] [address] [place], [place] [id number] Taras KarenPROF 14(COMP METB)on [id number] [Mass/Vol]4.2 g/dLNormal 3.5-5.0M[facility] Memorial HospitalComment on above:Performed By: #### CMP, LIPID #### [facility] [address] [place], [place] [address] Taras KarenAlbumin/Globulin [Mass ratio]1.3 {ratio}NormalMccullough-Hyde Memorial Hospital Comment on above:Performed By: #### CMP, LIPID #### [facility] [address] [place], [place] [address] Taras KarenALP [Catalytic activity/Vol]66 U/IEgnsvh65-187NqbMccullough-Hyde Memorial Hospital Comment on above:Performed By: #### CMP, LIPID #### [facility] [address] [place], [place] [address] Taras KarenALT [Catalytic activity/Vol]66 U/VUssitg88-66CuuMccullough-Hyde Memorial Hospital Comment on above:Performed By: #### CMP, LIPID #### [facility] [address] [place], [place] [address] Taras KarenAnion gap [Moles/Vol]11.4 mmol/LNormalMccullough-Hyde Memorial HospitalComment on above:Performed By: #### CMP, LIPID #### [facility] [address] [place] [address] Taras KarenAST [Catalytic activity/Vol]31 U/QXzfehw79-61NskMccullough-Hyde Memorial Hospital Comment on above:Performed By: #### CMP, LIPID #### [facility] [address] [place] [address] Taras KarenBilirubin Ql (U)0.8 mg/dLNormal0.2-1.3TMercy Health St. Elizabeth Youngstown HospitalComment on above:Performed By: #### CMP, LIPID #### [facility] [address] [place] [address] Taras KarenCalcium [Mass/Vol]9.7 mg/dLNormal8.4-10.2[facility] Comment on above:Performed By: #### CMP, LIPID #### [facility] [address] [place] [address] Taras KarenChloride [Moles/Vol]101 mmol/RWnekpw28-480DzxMccullough-Hyde Memorial Hospital Comment on above:Performed By: #### CMP, LIPID #### [facility] [facility] [address] [place] [address] Taras KarenCO2 [Moles/Vol]29.1 mmol/HOrdcym67.0-30.0[facility] Comment on above:Performed By: #### CMP, LIPID #### [facility] [address] [address] Taras KarenCreatinine [Mass/Vol]0.98 mg/dLNormal0.66-1.25[facility] Comment on above:Performed By: #### CMP, LIPID #### [facility] [address] [place] [address] Taras KarenEGFR-AF CANADIAN>60Normal>=60[facility] HospitalComment on above: Performed By: #### CMP, LIPID #### [facility] [address] [address] Taras KarenEGFR-NON AF CANADIAN>60Normal>=60[facility] For RehabilitationComment on above:Performed By: #### CMP, LIPID #### [facility] [address] [address] Taras KarenGlobulin (S) [Mass/Vol]3.3 g/dLNormalThAdams County Regional Medical CenterComment on above:Performed By: #### CMP, LIPID #### [facility] [address] [address] Taras KarenGlucose [Mass/Vol]248 mg/dLCritically fsnl18-053Rmw [facility] RehabilitationComment on above:Performed By: #### CMP, LIPID #### [facility] [address] [place] [address] Taras KarenPotassium [Moles/Vol]4.5 mmol/LNormal3.4-5.0[facility] Comment on above:Performed By: #### CMP, LIPID #### [facility] [address] [place] [address] Taras KarenProtein [Mass/Vol]7.5 g/dLNormal6.1-8.2The [facility] For RehabilitationComment on above:Performed By: #### CMP, LIPID #### [facility] [address] [place] [address] Taras KarenSodium [Moles/Vol]137 mmol/NKznhdj877-713Lft [facility] Comment on above:Performed By: #### CMP, LIPID #### [facility] [address] [place] [address] Taras KarenUrea nitrogen [Mass/Vol]13.0 mg/dLNormal9.0-20.0The [facility] For RehabilitationComment on above:Performed By: #### CMP, LIPID #### [facility] [address] [place] [address] Taras KarenUrea nitrogen/Creatinine [Mass ratio]13.3 mg/mgNormalThe [facility] Hospital For RehabilitationComment on above:Performed By: #### CMP, LIPID #### [facility] [address] [place] [address] Taras Cathi Vital Signs Date TimeVital SignValuePerforming WicpmgjmtFpofuclo76-94-3817 08:39-0400 Diastolic blood flmsmypy41 mm[Hg]Rajat Zeng [phone]-Dshbw[address] [place] [address] [facility] 11-30-2023 08:39-0400Mean blood zjaldbmr324 mm[Hg]Rajat Cobosy [phone]-Hzvir[address] [place] [address] [facility] 11-30-2023 08:39-0400Systolic blood dnprlokl234 mm[Hg]Rajat Majorurany [phone]-Uxmji[address] [place] [address] [facility] 11-30-2023 08:31-0400Blood Pressure LocationJogabriela Mourany [phone]-Mwgaz[address] [place] [address] [facility] 11-30-2023 08:31-0400Diastolic blood qywqicml990 mm[Hg]Rajat Zeng [phone]-Zbhwp[address] [place] [address] [facility] 11-30-2023 08:31-0400Heart rate86 /minJohn Mourany [phone]-Jjvfw[address] [place] [address] [facility] 11-30-2023 08:31-0400Respiratory rate16 /minJohn Mourany [phone]-Zyhyp[address] [place] [address] [facility] 11-30-2023 08:31-0400Systolic blood bkrgfaek527 mm[Hg]Rajat Zeng [phone]-Addww[address] [place] [address] [facility] 10-26-2023 10:10-0500Blood Pressure LocationJohn Mourany [phone]-Toofn[address] [place] [address] [facility] 10-26-2023 10:10-0500Diastolic blood oongklmb20 mm[Hg]Rajat Zeng [phone]-Uodfu[address] [place] [address] [facility] 10-26-2023 10:10-0500Heart rate88 /minJohn Mourany [phone]-MgskhC[facility] 10-26-2023 10:10-0500Respiratory rate18 /Devin Zeng [phone]-LocutCleveland Clinic Mercy Hospital [facility] 10-26-2023 10:10-0500Systolic blood ahvjsubl636 mm[Hg]Rajat Zeng [phone]-MsuygLake [facility] Encounters Encounter DateEncounter TypeCare ProviderFacilityStart: 49-51-8392wravgcsdpmLhmp L SchwabFacility:[facility] BellevueStart: 34-99-2846yupsjcdfwuVtgo L Lana Facility: [facility] BellevueStart: 07-21-2025 End: 95-55-6473acolvnizczYTR Emily L SchwabFacility:FTMCStart: 06-30-2025 End: 54-08-5148urncpvkcawMroc L SchwabFacility: [facility] BellevueStart: 05-14-2025 End: 39-47-0004nxokzzayqnOXSKJO A LEHMANNFacility: [facility] BellevueStart: 04-07-2025 End: 06-78-2379lppdlnkfcvVAFNFG A LEHMANNFacility: [facility] BellevueStart: 01-13-2025 End: 89-65-2704uhkerjqphxKTVFLE A LEHMANNFacility: [facility] BellevueStart: 10-14-2024 End: 69-03-7228Hfu Drop offSHELLY A LEENA [facility] Start: 10-14-2024 End: 47-02-1191tfuqpqvfuqJPOBFY A LEHMANNFacility: [facility] BellevueStart: 08-15-2024 End: 63-89-3986igewpglnyyFXJXCR A LEHMANNFacility:[facility] BellevueStart: 07-10-2024 End: 47-85-9197Img Drop offSHELLY A LEENA [facility] Start: 07-10-2024 End: 97-66-6415hrxrszlxabXAXFFH A LEHMANNFacility:FT FM BellevueStart: 05-15-2024 End: 41-79-9867pnhdrtltsrXYGYCP A LEHMANNFacility:FT FM BellevueStart: 04-15-2024 End: 45-00-2280qdoxnydbkhMYHBPN A LEHMANNFacility:FT FM BellevueStart: 04-09-2024 End: 21-89-8135zgqpvgwismGPDDZK A LEHMANNFacility:FT FM BellevueStart: 03-18-2024 End: 41-34-6941pdrfsqeooeHGKNAE A LEHMANNFacility:FT FM BellevueStart: 02-21-2024 End: 76-64-5646Lxp Drop offSHELLY A LEENA [facility] Start: 02-21-2024 End: 56-38-0291amrhzgslatPOBIRA A LEHMANNFacility:FT [facility] BellevueStart: 02-19-2024 End: 01-05-8077cptprjsboiGFOEPC A LEHMANNFacility:FT FM BellevueStart: 90-12-6886anhsfxtqyhNMEFDU A LEHMANNFacility: [facility] BellevueStart: 11-30-2023 End: 42-10-6864iylwkpenvfFdhs E. MouranyFacility:[facility]ertart: 11-30-2023 End: 13-36-5508Gzupsky encounter procedureJohn E. Mourany [phone]-EddgmCleveland Clinic Mercy Hospital [facility] Start: 11-02-2023 End: 92-96-1876vjkbssdhrvBplu E. MouranyFacility: DakotaImmco Diagnosticstart: 11-02-2023 End: 02-10-0932Ddnhifi encounter procedureJohn E. Mourany [phone]-PnanwPeoples Hospital Surgery Cable Start: 60-23-1556hmszsslcvcDczt MouranyFacility:[facility] Healthtart: 10-26-2023 End: 54-62-6032ktrpfjdmmfMsac E. MouranyFacility:[facility] Centertart: 10-26-2023 End: 04-26-9225Ovrmzri encounter procedureRajat Zeng [phone]-LtgoqLake County Memorial Hospital - West Start: 10-26-2023 End: 86-58-3531hjmotgeucsRNEAXV A LEHMANNFacility:[facility] BellevueStart: 02-26-7075aizyuaoovuRqnv MouranyFacility:[facility] BellevueStart: 06-22-2023 End: 86-59-0141Mmgixytaa department patient visitTONY Nava [facility]Start: 09-13-2022 End: 39-72-6726dkmzpspzmwEHRIKJPilar Tolentino [facility] HospitalStart: 09-13-2022 End: 64-35-2238Hqqocinkqn hospital visit by Yeny Dixon PTMTHZ Physical TherapyComment on above:ArrivedStart: 09-01-2022 End: 68-67-5754rmqihqkwdlFQZLXAPilar Tolentino [facility] HospitalStart: 09-01-2022 End: 65-36-0364Ifulueauqz hospital visit by Candido Durán APRN - JADYN Work Phone: mthz LaboratoryComment on above:Other hyperlipidemia; Type 2 diabetes mellitus without complication, without long-term current use of insulin (HCC); Essential hypertension; Erectile dysfunction, unspecified erectile dysfunction typeStart: 01-28-2021 End: 91-49-3940Xejhyiglbc hospital visit by Candido Durán APRN - JADYN Work Phone: mthz LaboratoryStart: 09-13-2020 End: 67-74-4083Mmdlvrpoxf hospital visit by Georges Ortiz [address] [place] [address] RadiologyComment on above:Right-sided chest painStart: 07-21-2020 End: 07-08-9295Sjzuiusvme hospital visit by Candido Fernandez LaboratoryComment on above:Type 2 diabetes mellitus without complication, without long-term current use of insulin (HCC); Essential hypertensionStart: 56-15-5174Rnjilitnr for general adult medical examination without abnormal findingsOur Lady of Mercy Hospitaltart: 05-18-2020 End: 74-14-4576Afoxvbj encounter procedureDOUGAlta View Hospitalcility:E4Vzsry: 57-76-5605Nlxxcgg encounter procedureDOLogan Regional Hospitality:E0Vtncolcqt for general adult medical examination without abnormal findingsOhioHealth Pickerington [facility] Procedures DateProcedureProcedure DetailPerforming ClinicianStart: 14-78-1936Bllacbwxvjxww metabolic panelMonica Durán INSTRUMENT REPAIR TECHNICIAN - TRANSFER TABLE OPERATOR HELPER Work Phone: Start: 15-65-8902Syihs panelMonica Durán INSTRUMENT REPAIR TECHNICIAN - TRANSFER TABLE OPERATOR HELPER Work Phone: Start: 35-32-3532Zlbdj ribs unilateral 2 viewsMonica Durán Work Phone: Start: 52-76-5736Izdkw metabolic panel calcium total Monica Durán Work Phone: Start: 78-48-5102Fdmqi count complete automatedMonica Durán Work Phone: Start: 27-00-4823Ftllx panelMonica Durán Work Phone: Start: 07-66-1220Iyrgvdwogki alanine amino alt sgpt Monica Durán Work Phone: Start: 20-90-7972Clwxvmdconk aspartate amino ast sgot Monica Durán Work Phone: photorefractive keratoplastyRajat Zeng Structure of anterior cruciate ligament of knee joint (body structure)Rajat Zeng Plan of Treatment DateCare ActivityDetailAuthorStart: 36-29-7243Aovhfowl foot examinationDiabetic foot examBON [facility]: 24-66-8187Zcifwpjekc Monitoring Depression MonitoringSentara Virginia Beach General Hospitalart: 95-02-8191EOT test (Diabetes, CKD 3-4, OR last GFR 15-59)GFR test (Diabetes, CKD 3-4, OR last GFR 15-59)[facility]: 55-47-4276Dbijrnmdqx A1c qhbrhegnalqJ7B test (Diabetic or Prediabetic)[facility] Hospitalart: 31-99-7863Gseco panelLipidsSentara Virginia Beach General Hospitalart: 03-09-2023 End: 80-18-3982Fihctvf encounter qjsmowofj62/23/2023 Office Visit Primary Care Monica Durán, INSTRUMENT REPAIR TECHNICIAN - TRANSFER TABLE OPERATOR HELPER [address] [facility] [id number] [facility] Start: 11-11-2516Rrptguoi foot examinationDiabetic foot examBON [facility]art: 09-34-2678Hzcndrvwte A1c gebvbdxjgllV2H test (Diabetic or Prediabetic)[facility]: 26-49-4349Jrmlh panelLipidsSentara Virginia Beach General Hospitalart: 73-10-8756Rzcdy screening for proteinDiabetic microalbuminuria testSmyth County Community Hospital: 50-05-7900Sbmppuluu vaccinationFlu vaccine (#1)[facility]: 81-80-3571Gbmmbuqmcz measurementCreatinine monitoringSouthview Medical Center Mangatar Work Phone: start: 89-00-5182Workpztsg monitoringPotassium [facility] [employer] Phone: start: 59-95-1457Txobofuc foot examinationDiabetic foot examMcKitrick Hospital, KYStart: 40-95-7566Yvptotpwke measurementCreatinine [facility], [place]Start: 60-93-0373NbC7d (Bld) [Mass fraction]A1C test (Diabetic or Prediabetic)[facility]: 26-31-2167Ppceqqhqto A1c bsrrghleyrrP2C test (Diabetic or Prediabetic)[facility] CenterNicOx Phone: start: 79-28-1864Focwi panelLipid [facility]: 41-31-7214Ewgssrwto monitoringPotassium monitoringWadsworth-Rittman Hospital: 59-35-5921Wosdsnuel vaccinationFlu vaccine (Season Ended)[facility] [employer] Phone: start: 02-04-2021 End: 24-34-6508Iknmlvq encounter /21/2021 Office Visit Family Medicine Monica Durán, INSTRUMENT REPAIR TECHNICIAN - TRANSFER TABLE OPERATOR HELPER [address] [place] [address] [facility] 11-[facility]-2020 End: 51-25-9834Nvrbxk Visit11/15/2020 Office Visit Family Monica Camejo, INSTRUMENT REPAIR TECHNICIAN - TRANSFER TABLE OPERATOR HELPER [address] [place] [address] [facility] Start: 09-22-2020 End: 40-74-3288Ydgjdc Visit09/22/2020 Office Visit Family Monica Camejo, INSTRUMENT REPAIR TECHNICIAN - TRANSFER TABLE OPERATOR HELPER [address] [place] [address] [facility] Start: 08-20-2020 End: 04-72-1015Dclrct Visit08/20/2020 Office Visit Family Monica Camejo, INSTRUMENT REPAIR TECHNICIAN - TRANSFER TABLE OPERATOR HELPER [address] [place] [address] [facility] Start: 85-27-1677Cpvevmaui vaccinationFlu vaccine (#1)[facility]: 95-67-3701Wbucqpki screenDiabetes [facility]: 1998 DTaP/Tdap/Td vaccine (1 - Tdap)DTaP/Tdap/Td vaccine (1 - Tdap)[facility]: 85-04-3692Kviyfmare B vaccine (1 of 3 - Risk 3-dose series) Hepatitis B vaccine (1 of 3 - Risk 3-dose series)[facility]: 21-40-4262Adbcellg microalbuminuria testDiabetic microalbuminuria testWadsworth-Rittman Hospital: 86-25-8785Ofzwcghz retinal examDiabetic retinal examBON [facility]: 02-84-9855Kxovu screening for proteinDiabetic Alb to Cr ratio (uACR) testSmyth County Community Hospital: 90-95-1455IMR screeningHIV [facility]: 84-03-7834GMIWI-19 Vaccine (1)COVID-19 Vaccine (1)[facility] Work Phone: start: 80-86-1286Wxdrktqu retinal examDiabetic retinal examWadsworth-Rittman Hospital: 39-39-0468Tmmtf panelLipid [facility]: 01-78-8899Vozrzpdziiup 0-64 years Vaccine (1 of 1 - PPSV23) Pneumococcal 0-64 years Vaccine (1 of 1 - PPSV23)[facility]: 11-45-2500Swuvybnpk vaccine (1 of 2 - 2-dose childhood series)Varicella vaccine (1 of 2 - 2-dose childhood series)[facility]: 17-18-0558YIATB-19 Vaccine (#1)COVID-19 Vaccine (#1)[facility]: 1980 Hepatitis C screeningHepatitis C [place] End: 16-65-5390LuK3b (Bld) [Mass fraction]Hemoglobin A1C Lab Routine Type 2 diabetes mellitus without complication, without long-term currentuse of insulin (HCC) Essential hypertension 1 Occurrences starting 07/21/2020 until 07/21/2020 [place], [place]Comment [place]:1 Occurrences starting 07/21/2020 until 07/21/2020HbA1c (Bld) [Mass fraction]Hemoglobin A1C Lab Routine Type 2 diabetes mellitus without complication, without long-term currentuse of insulin (HCC) Essential hypertension 07/21/2020 4:29 PM [place] End: 71-95-4165Rnlmegpwoo A1c/Hemoglobin.total in BloodBON [employer] Work Phone: comment on above:1 Occurrences starting 09/01/2022 until 09/01/2022 Immunizations Immunization DateImmunizationNotesCare OvukuigrIjjgaqfc42-32-2074qwukpuwrjcae polysaccharide vaccine, 23 Adriane Durán INSTRUMENT REPAIR TECHNICIAN - [facility] Work Phone: BON ZinioComment on above:Result Comment: 2023-10-26: VIS DATE: 07/16/2019 Payers DatePayer CategoryPayerPolicy [id number] [id number] 1.2.840.233831.1.13.239.2.7.3.326[id number] 2..840.1.577501.3.57[id number] 2.16.840.1.807465.3.57[id number] 2.16.840.1.752928.3.57[id number] 2.16.840.1.570538.3.57[id number] 2.16.840.1.681542.3.57[id number] 2.16.840.1.901933.3.57[id number] 2.16.840.1.695167.3.57[id number] 2.16.840.1.131893.3.579.[id number] 2.16840.1.003538.3.57[id number] 2.16840.1.409215.3.57[id number] 2.840.1.143090.3.57[id number] 2.840.1.076265.3.57[id number] 2.840.1.960970.3.579.[id number] 2.840.1.355740.3.579.2.47424-03-6294Njpjhnl39647895 2.840.1.087767.3.579.2.28296-30-1978Fgmmqdm15274521 2.840.1.911530.3.579.2.26173-98-8958Tcjpvml77198628 2.840.1.899459.3.579.[id number] 2.840.1.284692.3.579.2.[id number] 2.16840.1.580079.3.57[id number] 2.840.1.974908.3.579.2.42769-21-9017Mqhfqbb79996198 2.16.840.1.520683.3.579.2.94378-10-4856Btrpliw13685464 2.16.840.1.811113.3.579.2.95470-26-3249Qagfexs74577425 2.16.840.1.192288.3.579.2.29826-74-9722Ghobwim56771047 2.16.840.1.685912.3.579.2.37907-70-7168Jfuwcbz31010565 2.16.840.1.807534.3.579.2.23498-94-3449Qefaeim94136183 2.16.840.1.270170.3.579.2.03639-66-3330Fhjfdao51079821 2.16.840.1.122754.3.579.2.84133-66-4327Xinyqec26238061 2.16.840.1.368363.3.579.2.45270-72-0408Yydqopg78665169 2.16.840.1.936305.3.579.2.18569-05-0449Ikvlbsi59502285 2.16.840.1.506749.3.579.2.75174-20-4157Klciggb65935379 2.16.840.1.002994.3.579.2.74535-87-5020Ipcr-gba74580009969-15-9942Qhfskoc [id number] 1.2.840.974072.1.13.239.2.7.3.574086.315 Social History DateTypeDetailFacilityStart: 07-21-2020 End: 21-59-3625Nzucnft smoking status NHISCurrent every day smokerBON SECOURS MEMORIAL REGIONAL MEDICAL CENTERHistory of tobacco useCiSelect [facility]ty Hospital[facility]: 07-21-2020 End: 92-18-1878Xrkmkee use and exposureNever usedMcKitrick Hospital, LAYOSaint Stephen: 07-21-2020 End: 87-33-2285Roxqovn SDOH Uznnkeytr6VnecfMcKitrick Hospital, LAYOSaint Stephen: 07-21-2020 End: 53-70-9489Cgsomjr SDOH Food Goxmz1WqgytMcKitrick Hospital, LAYOart: 07-21-2020 History SDOH Transport Onh0OmusxMcKitrick Hospital, KYSex Assigned At BirthNot on file [facility], LAOYSaint Stephen: 24-46-1039Kcjklduoja smoked current (pack per day) - ReportedSouthview Medical Center [employer] Work Phone: start: 32-66-2133Qit Assigned At LifePoint HospitalsTobacco2 packs a day Tobacco Use:.[facility] Tobacco smoking statusNo Smoking Status EnteredKettering Health Hamilton Sex Assigned At [facility] [place] Start: 67-58-4341Xbsvihy smoking statusHeavy tobacco smoker (finding)[facility] Hospitalobacco smoking statusNeverMercy Health Perrysburg Hospitaltart: 02-19-2024 End: 99-12-2150Gazkuan smoking statusEx-smoker (finding)[facility] Procedure CodeEquipment CodeEquipment Original TextEquipment IdentifierDates Dispense sufficient amount for indicated testing frequency plus additional to accommodate PRN testing needs. Dispense all needed supplies to include: monitor, strips, lancing device, lancets, controlsolutions, alcohol swabs.[id number] Start: 09-02-2022 Functional Status CwyoWyheyzgnxdCvdawqZsprrcrk83-80-9141Xlqnzzkddp StatusN/[facility]02-09-2024Functional StatusN/[facility] Clinical Notes 09-13-2022 to 04-07-2025 Note Date & UlgdRwmeHdvfaipx25-21-0451 NotePatient Education Endocrinology Blood Glucose Monitoring, Adult [...] Where to find more information ??? The [place] Diabetes Association: diabetes.org ??? The Association of [...] levels in y (more content not included)... [facility]11-29-2024 NotePatient Education Cardiovascular Managing Your Hypertension [...] changes are not enough (more content not included)...[facility]10-24-2024 Note Patient Education Endocrinology Diabetes Mellitus [...] Carrots. Green beans. Tomatoes. Peppers. Onions. Cucumbers. [place] sprouts. Grains Whole grains, such as whole-wheat or whole- (more content not included)...[facility]07-02-2024 NotePatient Education Emergency Medicine Heart Attack A heart attack occurs when blood and oxygen supply to the heart is cut off. A heart attack can cause damage to the heart that cannot be fixed. A heart attack is also called a myocardial infarction, or WI. If you think you are having a [...] these instructions at home: Medicines ? Take edch-rtk-evczubu and prescription medicines only as told by [...] skipping beats. ? You (more content not included)...[facility]02-09-2024 Hospital Discharge instructions Patient Education 10/26/2023 [...] ?Hypothyroidism. ?Polycystic ovarian syndrome (PCOS). ?Binge-eating disorder. ?Lane syndrome. Taking certain medicines, such as steroids, [...] food choices, such as grocery stores and [employer] markets. What are the signs or symptoms? [...] and how much exercise you get. Take jwig-zwn-oiwappo and prescription medicines only as told by [...] provider. Document Revised: 04/11/2022 Document Reviewed: 04/11/2022 [employer] Patient Education 2022 [employer] [facility] 12-28-2022 History of Present illness Narrative* Garcia Dixon PT - 09/13/2022 6:15 PM EST [facility] Physical Therapy Orthotic Fitting Plan of Care Date: 09/13/2022 Patient Name: Sultana Joshua : 1980 (41 y.o.) CSN #: [id number] Referring Physician: Monica Durán APRN * Diagnosis: [...] Signature: Date: 09/13/2022 documented in this encounterBON [facility] [employer] Phone: evaluation + Plan note Future Appointments Appointment Date:11/02/2023 08:40:00 AM Scheduled Provider:Rajat Zeng MD Location:[facility] Appointment Type:[facility] Evaluation + Plan note Future Appointments Appointment Date:11/30/2023 08:40:00 AM Scheduled Provider:Rajat Zeng MD Location:[facility] Appointment Type:[facility] General [facility] Evaluation + Plan note Future Appointments Appointment Date:03/18/2024 07:20:00 AM Scheduled Provider:PASQUALE STERN CNP Location:[facility] Appointment Type:FM Open Future Scheduled Tests Laboratory* HgbA1c 12/07/23 [facility] Future Appointments Appointment Date:08/15/2024 08:00:00 AM Scheduled Provider:PASQUALE STERN CNP Location:[facility] Appointment Type:FM Open Future Scheduled Tests Laboratory* HgbA1c 12/07/23 [facility] Evaluation + Plan note Future Appointments Appointment Date:01/13/2025 07:20:00 AM Scheduled Provider:PASQUALE STERN CNP Location:[facility] Appointment Type:FM Open Future Scheduled Tests Laboratory* HgbA1c 12/07/23 [facility] evaluation note* Diagnosis Other hyperlipidemia Type 2 diabetes mellitus without complication, without long-term current use of insulin (HCC) Essential hypertension Unspecified essential hypertension Erectile dysfunction, unspecified erectile dysfunction type documented in this encounter [facility] Work Phone: Hospital course Narrative No data available for this section [facility] Hospital Discharge instructions No data available for this section [facility] Progress note No data available for this section [facility] Assessments Diagnosis Type 2 diabetes mellitus without complication, without long-term current use of insulin (HCC) Essential hypertension Unspecified essential hypertension Diagnosis Right-sided chest pain Advance Directives No Advanced Directives Records FoundDocuments on File TypeDate RecordedPatient RepresentativeExplanationACP-Advance DirectiveACP-Power of Lieutenant Ballistics Summary Purpose Family History No Family History [...] section and content) DATE CREATED AUTHOR 07/27/2020 [facility] DATE CREATED AUTHOR AUTHOR'S ORGANIZ ATION 06/25/2023 [facility] DATE CREATED AUTHOR AUTHOR'S ORGANIZ ATION 02/23/2024 [facility] DATE CREATED AUTHOR AUTHOR'S ORGANIZ ATION 03/19/2024 [facility] DATE CREATED AUTHOR AUTHOR'S ORGANIZ ATION 08/17/2024 [facility] DATE CREATED AUTHOR AUTHOR'S ORGANIZ ATION 10/16/2024 [facility] [facility] DATE CREATED AUTHOR AUTHOR'S ORGANIZ ATION 01/15/2025 [facility] DATE CREATED AUTHOR AUTHOR'S ORGANIZ ATION 04/09/2025 [facility] DATE CREATED AUTHOR AUTHOR'S ORGANIZ ATION 07/23/2025 [facility] Care Teams (unrecognized sec tion and content) Team MemberRelationshipSpecialtyStart DateEnd Date Monica Durán, INSTRUMENT REPAIR TECHNICIAN - TRANSFER TABLE OPERATOR HELPER [address] [facility] [place] [address] PCP - GeneralFamily Nurse Ihogjnabkofk27/4/20Team MemberRelationshipSpecialty Start DateEnd Date Monica Durán, INSTRUMENT REPAIR TECHNICIAN - TRANSFER TABLE OPERATOR HELPER [address] [facility] [place] [address] PCP - GeneralFamily Nurse Riwrmuzfbjqc62/4/20 FOR RECORDS PERTAINING TO PATIENTS WHO ARE [...] BE BASED ON THE PRIMARY CLINICAL RECORDS. [facility] [employer] provides no warranty or guarantee of the accuracy or completeness of information in this document.
== END 2025-08-25 12:08 | disposition home or self-care (01) ==
LOC: MRI 12:07
PROVIDERS: PCP Nurse Practitioner Family; Visit Provider Internal Medicine Infectious Disease
DX: R78.81 Bacteremia (principal); M54.50 Low back pain, unspecified; M54.6 Pain in thoracic spine
CPT/HCPCS: 72157; 72158; A9575